=== PATIENT | female | born 1955 | race Caucasian/White ===

== ENCOUNTER 2017-07-18 16:10 | Inpatient (IN) | payer BC ==
[~2017-07-18] VITALS: Ht 154.9 cm; Wt 123.4 kg
[~2017-07-18 16:10] MED LIST: ADVAIR 100-501 EACH; ADVAIR 100-501 EACH INH; ALPRAZOLAM1 MG PO; ASPIR 8181 MG PO; ASPIRIN81 MG PO; ATENOLOL100 MG PO; BENICAR; BENICAR HCT 401 EAC1 PO; BUSPIRONE HCL5 MG PO; CIPRO XR 500 M500 MG PO; CLONIDINE HCL0.1 MG PO; CLONIDINE HCL0.2 MG PO; COLACE100 MG PO; CYMBALTA60 MG PO; CYTOMEL25 MCG PO; DEXILANT30 MG PO; DIFLUCAN100 MG PO; DOCUSATE SODIU250 MG PO; EFFIENT10 MG PO; HYDROCODON-ACE1 EAC9 PO; ISOSORBIDE MONO30 MG PO; LACTAID PO; LEVAQUIN500 MG PO; MELOXICAM7.5 MG PO; METFORMIN HCL500 MG PO; METRONIDAZOLE500 MG PO; NASACORT; NITROGLYCERIN0.4 MG SL; NORVASC5 MG PO; NUVIGIL150 MG PO; OXYBUTYNIN CHLOR5 MG PO; PARAFON FORTE500 MG PO; RYBIX ODT50 MG PO; TIZANIDINE HCL4 MG PO; TRAZODONE HCL100 MG PO; TUM; TUMS PO; XANAX XR1 MG PO; XANAX0.5 MG PO; XOPENEX HFA15 GM; ZEGERID 40 MG1 EACH PO; ZEGRID PO; ZERTEC; ZOFRAN ODT4 MG; ZYRTEC PO; [UNRECOGNIZED DRUG - OTHER] PO
--- OUTSIDE RECORDS SUMMARY | 2017-07-18 16:13 | XMS REPORT | Continuity of Care Document ---
Author Author [facility] Organization [facility] Address [address] [place] [address] Phone Unavailable Care Team Providers Care Founder And Ceo Name Role Phone KYLEE ACOSTA MD PCP Insurance Providers Guarantor Tracy Preciado Address [address] [place] [address] Email [email or web address] [employer] Policy Number [id number] Subscriber's Name Cresencio Preciado Relationship 01 Group Number [id number] Group Name [employer] Effective Date 16 Advance Directives Directive Response Recorded Date/Time Does the patient have an advance directive? No 07/09/17 5:07pm If yes, is advance directive on file with [facility]? No 07/09/17 5:07pm If not on file with [facility] will patient provide a copy? No 07/09/17 5:07pm Do you have a Directive to Physician? No 07/09/17 2:08pm Do you have a Medical Power of Assistant [employer]inter Floor [employer]ing? No 07/09/17 2:08pm Do you have an out of hospital Do Not Resuscitate Order? No 07/09/17 2:08pm Do you have any special needs we should be aware of? No 07/09/17 2:08pm Do you have a support person here with you today? Yes 07/09/17 2:08pm Did patient receive Notice of Privacy Practices? Yes 07/09/17 2:08pm Did patient receive patient rights and responsibilities? Yes 07/09/17 2:08pm Problems Medical Problem Onset Date Status CHF (congestive heart failure) Unknown CVA (cerebrovascular accident) Unknown Chest pain Unknown Gallstones 05/05/2015 Acute Renal colic on right side 08/25/2014 Acute Medications Current Home Medications Medication Dose Units Route Directions Days Qty Instructions Start Date Alprazolam 1 Mg Tablet 1 Mg Oral Every 8 Hours as needed for Anxiety Amlodipine Besylate (Norvasc) 5 Mg Tab 10 Mg Oral Daily Aspirin 81 Mg Tab.chew 81 Mg Oral Daily Atenolol 100 Mg Tablet 100 Mg Oral Daily Buspirone Hcl 5 Mg Tablet 5 Mg Oral Twice A Day 60 Tab Clonidine Hcl 0.1 Mg Tablet 1 Tab Oral Daily 60 Tab Dexlansoprazole (Dexilant) 30 Mg Cap.mp 60 Mg Oral Daily THERAPEUTIC INTERCHANGED WITH PROTONIX PER [facility] Docusate Sodium 250 Mg Capsule 250 Mg Oral Daily Duloxetine Hcl (Cymbalta) 60 Mg Capsule.dr 60 Mg Oral Daily Hydrocodone Bit/Acetaminophen (Hydrocodon-Acetaminophn 10-325) 1 Each Tablet 10-325 Oral Every 8 Hours PRN Pain Isosorbide Mononitrate (Isosorbide Mononitrate Er) 30 Mg Tab.er.24h 30 Mg Oral Daily 30 Tab Liothyronine Sodium (Cytomel) 25 Mcg Tablet 25 Mcg Oral Daily Nitroglycerin 0.4 Mg Tab.subl 0.4 Mg Sublingual Every 5 Minutes as needed for Chest Pain Oxybutynin Chloride 5 Mg Tablet 5 Mg Oral Daily 30 Tab Prasugrel Hcl (Effient) 10 Mg Tablet 10 Mg Oral Daily 30 Tab Prasugrel Hcl (Effient) 10 Mg Tablet 10 Mg Oral Daily 30 Tab Tizanidine Hcl 4 Mg Tablet 4 Mg Oral Three Times A Day Trazodone Hcl 100 Mg Tablet 600 Mg Oral Bedtime Past Home Medications Medication Directions Ordered Status Alprazolam (Xanax) 0.5 Mg Tablet, 1 Mg Oral Three Times A Day Discontinued Alprazolam (Xanax Xr) 1 Mg Tab.er.24h, 3 Mg Oral As Needed Discontinued Armodafinil (Nuvigil) 150 Mg Tablet, 150 Mg Oral Daily Discontinued Armodafinil (Nuvigil) 150 Mg Tablet, 150 Mg Oral Daily Discontinued Aspirin (Aspir 81) 81 Mg Tablet.dr, 81 Mg Oral Daily Discontinued Benicar , Discontinued Chlorzoxazone (Parafon Forte Dsc) 500 Mg Tablet, 500 Mg Oral Daily Discontinued Ciprofloxacin/Ciprofloxa Hcl (Cipro Xr 500 Mg Tablet) 500 Mg Tbmp.24hr, Mg Oral Daily Discontinued Clonidine Hcl 0.2 Mg Tablet, 0.2 Mg Oral As Needed Discontinued Docusate Sodium (Colace) 100 Mg Cap, 100 Mg Oral Daily Discontinued Flucananzole , 100 Mg Oral Daily Discontinued Fluconazole (Diflucan) 100 Mg Tablet, 100 Mg Oral Daily Discontinued Fluticasone/Salmeterol (Advair 100-50 Diskus) 1 Each Disk.w.dev, 1 Inhalation As Needed Discontinued Fluticasone/Salmeterol (Advair 100-50 Diskus) 1 Each Disk.w.dev, 1 Inh Route Twice A Day Discontinued Lactaid , Oral As Needed Discontinued Levalbuterol Tartrate (Xopenex Hfa) 15 Gm Hfa.aer.ad, Discontinued Levofloxacin (Levaquin) 500 Mg Tablet, 500 Mg Oral Daily Discontinued Meloxicam 7.5 Mg Tablet, 7.5 Mg Oral Twice A Day Discontinued Metformin Hcl 500 Mg Tablet, 1000 Mg Oral Twice A Day Discontinued Metronidazole 500 Mg Tablet, 500 Mg Oral Three Times A Day 05/11/15 Discontinued Nasacort , Daily Discontinued Olmesartan/Hydrochlorothiazide (Benicar Hct 40-25 Mg Tablet) 1 Each Tablet, Oral Daily Discontinued Omeprazole/Sodium Bicarbonate (Zegerid 40 Mg Capsule) 1 Each Capsule, 40 Mg Oral Twice A Day Discontinued Omeprazole/Sodium Bicarbonate (Zegerid 40 Mg Capsule) 1 Each Capsule, 40 Mg Oral Discontinued Ondansetron (Zofran Odt) 4 Mg Tab.rapdis, 4 Mg Every 6 Hours Discontinued Tramadol Hcl (Rybix Odt) 50 Mg Tab.rapdis, 50 Mg Oral As Needed Discontinued Ramila , Discontinued Tums , Oral As Needed Discontinued Zertec , Discontinued Zyrtec , Oral Daily Discontinued Social History Social History Problem Response Recorded Date/Time Onset Date Status Hx Psychiatric Problems Yes 07/09/2017 5:07pm Not Applicable Not Applicable Hx Eating Disorder No 07/09/2017 5:07pm Not Applicable Not Applicable Hx Substance Use Disorder No 07/09/2017 5:07pm Not Applicable Not Applicable Hx Depression Yes 07/09/2017 5:07pm Not Applicable Not Applicable Hx Alcohol Use No 07/09/2017 5:07pm Not Applicable Not Applicable Hx Substance Use Treatment No 07/09/2017 5:07pm Not Applicable Not Applicable Hx Physical Abuse No 07/09/2017 5:07pm Not Applicable Not Applicable Smoking Status Start Date Stop Date Never Smoker Hospital Discharge Instructions No hospital discharge instruction information available. Plan of Care Discharge Date 07/18/17 2:58pm Disposition HOME, SELF-CARE Instructions/Education Provided Congestive Heart Failure Prescriptions See Medication Section Additional Instructions/Education Diet as tolerated Follow up with your PCP Follow up with Pulmonary Return to ER is any shortness of breath, increased or decrease in heart rate Functional Status Query Response Date Recorded Assistive Devices None July 09, 2017 5:14pm Ambulation Ability Independent July 09, 2017 5:14pm Toileting Ability Minimum Assistance July 18, 2017 10:43am Allergies, Adverse Reactions, Alerts Allergen Type Severity Reaction Status Last Updated Penicillin Allergy Unknown Active 12/22/16 Sulfa (Sulfonamide Antibiotics) Allergy Unknown Active 12/22/16 Morphine Allergy Unknown Active 12/22/16 Codeine Allergy Unknown Active 12/22/16 Methocarbamol Allergy Unknown Active 12/22/16 Albuterol Allergy Unknown Active 12/22/16 Lactose Adverse Reaction Severe Active 12/22/16 Cephalexin Allergy Unknown Active 12/22/16 Tetracycline Allergy Unknown Active 12/22/16 Erythromycin base Allergy Unknown Active 12/22/16 potassium clavulanate Allergy Unknown Active 12/22/16 Imipenem Allergy Unknown RASH Active 12/22/16 Amoxicillin Allergy Unknown Active 12/22/16 Gabapentin Allergy Unknown Active 12/22/16 Cilastatin Allergy Unknown RASH Active 12/22/16 Meperidine Allergy Unknown Active 12/22/16 Atorvastatin Allergy Intermediate itching and muscle cramps Active TAPE Allergy Mild RASH Active 04/17/09 Immunizations No immunization information available. Vital Signs Acute Vital Signs Vital Response Date/Time Temperature (Fahrenheit) 97.2 degrees F (97.6 - 99.5) 07/18/2017 12:00pm Pulse Pulse Rate (adult) 66 bpm (60 - 90) 07/18/2017 12:00pm Respiratory Rate 18 bpm (12 - 24) 07/18/2017 12:00pm Blood Pressure 132/60 mm Hg 07/18/2017 12:00pm Height 5 ft 1 in 07/09/2017 1:20pm Weight 272.31 lb 07/12/2017 8:03am Body Mass Index 51.5 kg/m^2 07/12/2017 8:03am Results Laboratory Results Test Name Result Units Flags Reference Collection Date/Time Result Date/ Time Comments Prothrombin Time 12.7 seconds 11.9-14.5 12/22/2016 3:00pm 12/22/2016 3: 23pm Prothromb Time International Ratio 0.91 12/22/2016 3:00pm 2016 3:23pm Oral Anticoagulant Therapy INR Values: 1. Low Intensity Therapy 1.5 - 2.0 2. Moderate Intensity Therapy 2.0 - 3.0 3. High Intensity Therapy(1) 2.5 - 3.5 4. High Intensity Therapy(2) 3.0 - 4.0 5. Panic Value INR > 5.0 Activated Partial Thromboplast Time 45.2 seconds H 23.8-35.5 12/22/2016 3 :00pm 12/22/2016 3:23pm Urine Color YELLOW YELLOW 12/22/2016 2:05pm 12/22/2016 3:01pm Urine Clarity HAZY CLEAR 12/22/2016 2:05pm 12/22/2016 3:01pm Urine Specific [place] 1.015 1.010-1.025 12/22/2016 2:05pm 2016 3:01pm Urine pH 5 5 - 7 12/22/2016 2:05pm 12/22/2016 3:01pm Urine Leukocyte Esterase TRACE H NEGATIVE 12/22/2016 2:05pm 2016 3:01pm Urine Nitrite NEGATIVE NEGATIVE 12/22/2016 2:05pm 12/22/2016 3:01pm Urine Protein 3+ H NEGATIVE 12/22/2016 2:05pm 12/22/2016 3:01pm Urine Glucose (UA) NEGATIVE NEGATIVE 12/22/2016 2:05pm 12/22/2016 3: 01pm Urine Ketones NEGATIVE NEGATIVE 12/22/2016 2:05pm 12/22/2016 3:01pm Urine Urobilinogen 0.2 mg/dL 0.2 - 1 12/22/2016 2:05pm 12/22/2016 3: 01pm Urine Bilirubin NEGATIVE NEGATIVE 12/22/2016 2:05pm 12/22/2016 3: 01pm Urine Blood TRACE H NEGATIVE 12/22/2016 2:05pm 12/22/2016 3:01pm Urine WBC 6-10 /HPF H 0-5 12/22/2016 2:05pm 12/22/2016 3:21pm Urine RBC 6-10 /HPF H 0-5 12/22/2016 2:05pm 12/22/2016 3:21pm Urine Bacteria MODERATE /HPF H NONE 12/22/2016 2:05pm 12/22/2016 3:21pm Urine Epithelial Cells MANY /LPF NONE 12/22/2016 2:05pm 12/22/2016 3: 21pm Urine Transitional Epithelial Cells FEW H NONE 12/22/2016 2:05pm 12/22 3:21pm Urine Renal Epithelial Cells FEW H NONE 12/22/2016 2:05pm 12/22/2016 3 :21pm Urine Hyaline Casts 0-1 0-1 12/22/2016 2:05pm 12/22/2016 3:21pm Bedside Glucose 82 mg/dL 70-120 12/23/2016 9:14pm 12/23/2016 9:32pm Meter ID: [id number] White Blood Count 15.90 x10e3/uL H 4.8-10.8 07/16/2017 6:42am 2017 7:00am Red Blood Count 4.06 x10e6/uL 3.6-5.1 07/16/2017 6:42am 07/16/2017 7: 00am Hemoglobin 10.9 g/dL L 12.0-16.0 07/16/2017 6:42am 07/16/2017 7:00am Hematocrit 32.8 % L 34.2-44.1 07/16/2017 6:42am 07/16/2017 7:00am Mean Corpuscular Volume 80.8 fL L 81-99 07/16/2017 6:42am 07/16/2017 7: 00am Mean Corpuscular Hemoglobin 26.8 pg L 28-32 07/16/2017 6:42am 2017 7:00am Mean Corpuscular Hemoglobin Concent 33.2 g/dL 31-35 07/16/2017 6:42am 07/16/2017 7:00am Red Cell Distribution Width 14.2 % 11.7-14.4 07/16/2017 6:42am 2017 7:00am Platelet Count 574 x10e3/uL H 140-360 07/16/2017 6:42am 07/16/2017 7: 00am Neutrophils (%) (Auto) 88.6 % H 38.7-80.0 07/16/2017 6:42am 07/16/2017 7 :00am Lymphocytes (%) (Auto) 8.2 % L 18.0-39.1 07/16/2017 6:42am 07/16/2017 7: 00am Monocytes (%) (Auto) 2.5 % L 4.4-11.3 07/16/2017 6:42am 07/16/2017 7: 00am Eosinophils (%) (Auto) 0.0 % 0.0-6.0 07/16/2017 6:42am 07/16/2017 7: 00am Basophils (%) (Auto) 0.1 % 0.0-1.0 07/16/2017 6:42am 07/16/2017 7:00am IM GRANULOCYTES % 0.6 % 0.0-1.0 07/16/2017 6:42am 07/16/2017 7:00am Neutrophils # (Auto) 14.1 H 2.1-6.9 07/16/2017 6:42am 07/16/2017 7: 00am Lymphocytes # (Auto) 1.3 1.0-3.2 07/16/2017 6:42am 07/16/2017 7:00am Monocytes # (Auto) 0.4 0.2-0.8 07/16/2017 6:42am 07/16/2017 7:00am Eosinophils # (Auto) 0.0 0.0-0.4 07/16/2017 6:42am 07/16/2017 7:00am Basophils # (Auto) 0.0 0.0-0.1 07/16/2017 6:42am 07/16/2017 7:00am Absolute Immature Granulocyte (auto 0.09 x10e3/uL 0-0.1 07/16/2017 6: 42am 07/16/2017 7:00am Sodium Level 136 mmol/L 136-145 07/16/2017 6:42am 07/16/2017 7:27am Potassium Level 3.6 mmol/L 3.5-5.1 07/16/2017 6:42am 07/16/2017 7:27am Chloride Level 99 mmol/L 98-107 07/16/2017 6:42am 07/16/2017 7:27am Carbon Dioxide Level 25 mmol/L 22-29 07/16/2017 6:42am 07/16/2017 7: 27am Anion Gap 15.6 mmol/L 8-16 07/16/2017 6:42am 07/16/2017 7:27am Blood Urea Nitrogen 60 mg/dL H 7-07/16/2017 6:42am 07/16/2017 7:27am Creatinine 2.72 mg/dL H 0.57-1.11 07/16/2017 6:42am 07/16/2017 7:27am BUN/Creatinine Ratio 22 6-07/16/2017 6:42am 07/16/2017 7:27am Estimat Glomerular Filtration Rate 18 ML/MIN L 60- 07/16/2017 6:42am 7:27am Ranges were taken from the National Kidney Disease Education Program and the National Kid[employer] Foundation literature. Reference ranges: 60 or greater: Normal 16-59 (for 3 consecutive months): Chronic kidney disease 15 or less: Kidney failure Glucose Level 219 mg/dL H 74-118 07/16/2017 6:42am 07/16/2017 7:27am Calcium Level 9.3 mg/dL 8.4-10.2 07/16/2017 6:42am 07/16/2017 7:27am Magnesium Level 1.6 MG/DL 1.3-2.1 07/16/2017 6:42am 07/16/2017 7:10am Total Bilirubin 0.4 mg/dL 0.2-1.2 07/16/2017 6:42am 07/16/2017 7:27am Aspartate Amino Transf (AST/SGOT) 10 IU/L 5-34 07/16/2017 6:42am 2017 7:27am Alanine Aminotransferase (ALT/SGPT) 14 IU/L 0-55 07/16/2017 6:42am 7:27am Total Protein 6.6 g/dL 6.5-8.1 07/16/2017 6:42am 07/16/2017 7:27am Albumin 2.8 g/dL L 3.5-5.0 07/16/2017 6:42am 07/16/2017 7:27am Globulin 3.8 g/dL H 2.3-3.5 07/16/2017 6:42am 07/16/2017 7:27am Albumin/Globulin Ratio 0.7 L 0.8-2.0 07/16/2017 6:42am 07/16/2017 7: 27am Alkaline Phosphatase 71 IU/L 40-150 07/16/2017 6:42am 07/16/2017 7: 27am B-Type Natriuretic Peptide 91.0 pg/mL 0-100 07/15/2017 9:57am 2017 10:31am Creatine Kinase 29 IU/L 29-168 07/10/2017 6:32am 07/10/2017 7:31am Creatine Kinase MB 0.30 ng/mL 0-5.0 07/10/2017 6:32am 07/10/2017 8: 00am Troponin I 0.011 ng/mL 0-0.300 07/10/2017 6:32am 07/10/2017 8:00am Microbiology Results Procedure Source Organism/Result Collection Date/Time Result Date/Time Result Status Blood Culture Blood NO GROWTH AFTER 5 DAYS, FINAL REPORT 07/09/2017 4:10pm 07/14/2017 4:57pm Final Procedures Procedure Status Date Provider(s) Computed tomography of brain without radiopaque contrast Active 12/22/16 CAYETANO ORDONEZ MD Magnetic resonance imaging of brain without contrast Active 12/23/16 KYLEE ACOSTA MD Encounters Encounter Location Arrival/Admit Date Discharge/Depart Date Attending Provider Discharged Inpatient [facility] 07/09/17 4:40pm 07/18/17 2:58pm KYLEE ACOSTA MD Discharged Inpatient [facility] 12/22/16 5:14pm 12/24/16 4:25pm KYLEE ACOSTA MD
[2017-07-18] MEDS ORDERED: DIATRIZOATE MEGL/DIATRIZOA SOD 30 ML BTL PO ONE (16:29)
--- NOTE | 2017-07-18 17:20 | Diagnostic Imaging Report ---
EXAMINATION: Chest, CHEST SINGLE (PORTABLE) INDICATION: Chest pain COMPARISON: Portable chest 07/15/2017 FINDINGS: LINES: None. Heart: Normal cardiac silhouette. Vascular: The pulmonary vasculature is within normal limits. Atherosclerotic calcifications of the aortic arch. Mediastinum: No mediastinal, hilar, or axillary mass or lymphadenopathy. Lungs: No parenchymal mass. No focal consolidation. Pleura: No pleural effusion. No pneumothorax. Bones: No acute osseous abnormality. Degenerative changes of the thoracic spine. Soft tissues: Normal. Impression: No acute radiographic abnormality. Signed by: Dr. Doyle Taylor M.D. on 07/18/2017 5:16 PM
[2017-07-18] MEDS ORDERED: ONDANSETRON HCL 4 MG ORAL DISINTEGRATING TAB PO ONE (17:30)
--- NOTE | 2017-07-18 18:43 | Diagnostic Imaging Report ---
EXAM: CT Abdomen and Pelvis WITHOUT contrast INDICATION: Abdominal pain COMPARISON: None. TECHNIQUE: Abdomen and pelvis were scanned utilizing a multidetector helical scanner from the lung base to the pubic symphysis. Coronal and sagittal reformations were obtained. The lack of intravenous contrast limits the evaluation of the solid organs, vasculature, and possible lymphadenopathy. Protocol: General survey without contrast IV CONTRAST: No intravenous contrast was administered as per physician request. ORAL CONTRAST: None. COMPLICATIONS: None. RADIATION DOSE: Total Exam DLP: 844.7 mGy*cm. CTDIvol has been reviewed. It is below the limits set by the Radiation Protocol Committee (RPC). FINDINGS: LINES: None. Lower thorax: No parenchymal abnormality. No pneumothorax. No pleural effusion. Calcified granuloma in the left lower lobe. Liver: No focal mass. No hepatomegaly. Normal parenchyma. Gallbladder: Cholecystectomy. Biliary tree: No intrahepatic duct dilation. No extrahepatic duct dilation. Spleen: No splenomegaly. No focal mass. Pancreas: No focal mass. Normal pancreatic duct. No peripancreatic inflammatory changes. Kidneys: Right nephrectomy. No obstructing calculi. No hydronephrosis. No cysts. No perinephric soft tissue inflammatory changes. 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 Adrenal glands: No adrenal nodules.. Bladder: Normal urinary bladder. Pelvic organs: Hysterectomy. Normal ovaries. GI: No bowel wall thickening. No air-fluid levels. The stomach and small bowel are normal. The colon is normal. No appendix is visualized. A moderate amount of retained feces limits intraluminal evaluation of the colon. Peritoneum/retroperitoneum: No pneumoperitoneum. No ascites. No drainable fluid collection. Lymph nodes: No lymphadenopathy. . Vessels: No focal abnormality. Atherosclerotic calcifications. Limited evaluation. Bones: No focal abnormality. Degenerative changes of the lumbar spine. Soft tissues: No focal abnormality. IMPRESSION: No acute abnormality of the abdomen and pelvis. Signed by: Dr. Doyle Taylor M.D. on 07/18/2017 6:39 PM
[2017-07-18 19:07] LABS: BASOPHILS # (AUTO) 0.1 (0.0-0.1); BASOPHILS % 0.3 % (0.0-1.0); HEMATOCRIT 40.8 % (34.2-44.1); HEMOGLOBIN 13.7 g/dL (12.0-16.0); LYMPHOCYTES % 8.1 % (18.0-39.1); MEAN CORPUSCULAR HEMOGLOBIN 27.1 pg (28-32); MEAN CORPUSCULAR HGB CONC 33.6 g/dL (31-35); MEAN CORPUSCULAR VOLUME 80.6 fL (81-99); MONOCYTES # (AUTO) 1.8 (0.2-0.8); MONOCYTES % 7.4 % (4.4-11.3); NEUTROPHILS # (AUTO) 20.1 (2.1-6.9); NEUTROPHILS % 82.6 % (38.7-80.0); PLATELET COUNT 646 x10e3/uL (140-360); RED BLOOD COUNT 5.06 x10e6/uL (3.6-5.1); RED CELL DISTRIBUTION WIDTH 14.5 % (11.7-14.4)
[2017-07-18 19:13] LABS: INR 1.06; PARTIAL THROMBOPLASTIN TIME 21.6 seconds (23.8-35.5)
[2017-07-18 19:20] LABS: ALBUMIN 3.6 g/dL (3.5-5.0); ALBUMIN/GLOBULIN RATIO 0.8 (0.8-2.0); ANION GAP 24.7 mmol/L (8-16); CALCIUM 10.5 mg/dL (8.4-10.2); CREATININE, SERUM 3.34 mg/dL (0.57-1.11); POTASSIUM 3.7 mmol/L (3.5-5.1)
[2017-07-18 19:27] LABS: CREATINE KINASE MB 0.7 ng/mL (0-5.0)
[2017-07-18 20:04] LABS: BLOOD UREA NITROGEN 24.9 mg/dL (7-26)
[2017-07-19] MEDS ORDERED: HYDROMORPHONE 1MG/1ML INJ IV STA (00:42)
[2017-07-19] MEDS ORDERED: NITROGLYCERIN 0.4 MG SUBL SL PRN (00:45)
[2017-07-19] MEDS ORDERED: DILTIAZEM HCL 5 MG/ML 5 ML VIAL IV STA (02:25)
[2017-07-19 02:53] LABS: CREATINE KINASE MB 0.5 ng/mL (0-5.0)
[2017-07-19] MEDS ORDERED: ATENOLOL 50 MG TAB ONE (03:32)
[2017-07-19] MEDS: ATENOLOL 100 MG TAB PO SCH ×2 (04:00→10:10)
[2017-07-19 05:01] LABS: LYMPHOCYTES % (MANUAL) 9 % (19-48); MONOCYTES % (MANUAL) 7 % (3.4-9.0); NEUTROPHILS % (MANUAL) 84 % (40-74)
[2017-07-19 05:02] LABS: PLATELET ESTIMATE MARKEDLY INCREASED
[2017-07-19 05:03] LABS: PLATELET MORPHOLOGY COMMENT FEW LARGE; RBC MORPHOLOGY COMMENT NORMAL
[2017-07-19] MEDS ORDERED: LEVOFLOXACIN 250MG/D5W 50ML 50 ML IV SCH (09:00)
[2017-07-19] MEDS ORDERED: PRASUGREL 10 MG TAB PO SCH (09:00)
[2017-07-19 09:04] LABS: BASOPHILS % 0.2 % (0.0-1.0); HEMATOCRIT 37.5 % (34.2-44.1); HEMOGLOBIN 12.5 g/dL (12.0-16.0); LYMPHOCYTES % 11.8 % (18.0-39.1); MEAN CORPUSCULAR HEMOGLOBIN 26.9 pg (28-32); MEAN CORPUSCULAR HGB CONC 33.3 g/dL (31-35); MEAN CORPUSCULAR VOLUME 80.8 fL (81-99); MONOCYTES # (AUTO) 2.3 (0.2-0.8); MONOCYTES % 9.2 % (4.4-11.3); NEUTROPHILS # (AUTO) 19.7 (2.1-6.9); NEUTROPHILS % 78.2 % (38.7-80.0); PLATELET COUNT 592 x10e3/uL (140-360); RED BLOOD COUNT 4.64 x10e6/uL (3.6-5.1); RED CELL DISTRIBUTION WIDTH 14.5 % (11.7-14.4)
[2017-07-19 09:19] LABS: CALCIUM 9.6 mg/dL (8.4-10.2); CREATININE, SERUM 3.01 mg/dL (0.57-1.11); MAGNESIUM 1.9 MG/DL (1.3-2.1)
[2017-07-19 09:41] LABS: FREE THYROXINE INDEX 2.776 (1.4-3.8); THYROID STIMULATING HORMONE 0.158 uIU/mL (0.350-4.940)
[2017-07-19] MEDS: PRASUGREL 10 MG TAB PO SCH (09:45)
[2017-07-19] MEDS: OXYBUTYNIN CHLORIDE 5 MG TAB PO SCH (09:45)
[2017-07-19] MEDS: PANTOPRAZOLE SOD 40 MG TABEC PO SCH (09:45)
[2017-07-19] MEDS: AMLODIPINE BESYLATE 5 MG TAB PO SCH (09:45)
[2017-07-19] MEDS: DULOXETINE HCL 30 MG DELAYED RELEASE PO SCH (09:45)
[2017-07-19] MEDS: TIZANIDINE HCL 4 MG TAB PO SCH ×3 (09:45→21:00)
[2017-07-19] MEDS: ASPIRIN 81 MG CHEW TAB PO SCH (09:45)
[2017-07-19] MEDS: CLONIDINE HCL 0.1 MG TAB PO SCH (09:45)
[2017-07-19] MEDS: HYDROCODONE/APAP 10MG-325MG TAB PO PRN ×2 (09:45→17:45)
[2017-07-19] MEDS: ISOSORBIDE MONONITRATE 30 MG TAB CR PO SCH (09:45)
[2017-07-19 09:47] LABS: ALBUMIN/GLOBULIN RATIO 0.9 (0.8-2.0); ANION GAP 17.3 mmol/L (8-16); CALCIUM 9.4 mg/dL (8.4-10.2); CREATININE, SERUM 2.93 mg/dL (0.57-1.11); POTASSIUM 3.3 mmol/L (3.5-5.1)
[2017-07-19] MEDS: ALPRAZOLAM 1 MG TAB PO PRN (09:50)
[2017-07-19 09:52] LABS: CREATINE KINASE MB 0.8 ng/mL (0-5.0)
[2017-07-19] MEDS: DOCUSATE SODIUM LIQD 100 MG/10 ML UDC PO SCH (10:11)
[2017-07-19] MEDS: BUSPIRONE HCL 5 MG TAB PO SCH ×2 (10:11→17:05)
[2017-07-19] MEDS: LIOTHYRONINE SODIUM 5 MCG TAB PO SCH (10:11)
[2017-07-19 10:42] LABS: LYMPHOCYTES % (MANUAL) 14 % (19-48); MONOCYTES % (MANUAL) 8 % (3.4-9.0); NEUTROPHILS % (MANUAL) 78 % (40-74)
[2017-07-19 10:43] LABS: PLATELET ESTIMATE MARKEDLY INCREASED; PLATELET MORPHOLOGY COMMENT NORMAL; RBC MORPHOLOGY COMMENT NORMAL
--- NOTE | 2017-07-19 13:22 | History and Physical ---
A 61-year-old female who was discharged yesterday after treatment of CHF. She comes back with near syncope and fall. HISTORY OF PRESENTING ILLNESS: Ms. Tracy Preciado is a 61-year-old female who was discharged yesterday. She was in her usual state of health until she arrived home and apparently after getting out of the car the patient slumped over and was helped by family, did not fall, but came back and admitted. The patient on admission had elevated white count and leukocytosis. The patient also had extreme weakness and was admitted for the same. PAST MEDICAL HISTORY: History of fibromyalgia, obesity, history of using CPAP, history of hypothyroidism, history of hypertension, history of depression and history of CHF, and history of incontinence and history of heart disease. The patient had been treated in the recent past for CHF. Yesterday, the patient was feeling fine and had no complaints and was discharged as per cardiology. The patient also has bilateral knee arthritis. MEDICATIONS: Atenolol 100 mg, trazodone 600 mg, 25 mcg, duloxetine 60 mg, Docusate 250 mg, tizanidine 4 mg, Effient 10 mg, oxybutynin 5 mg, nitroglycerin 0.4 as needed, isosorbide 30 mg daily, pantoprazole 60 mg, clonidine 0.1, Buspar 5 mg, aspirin 81, amlodipine 10 mg and alprazolam 1 mg q.8 h. p.r.n. anxiety. PAST SURGICAL HISTORY: History of right nephrectomy, history of hysterectomy, appendectomy, tonsillectomy, adenoidectomy, splenectomy, and thyroid removed. FAMILY HISTORY: Hypertension and diabetes in the family. REVIEW OF SYSTEMS: Negative for chest pain. Positive for some shortness of breath. She has no nausea, vomiting, diarrhea, no constipation, no rectal bleeding, no hematochezia and no hematemesis. Positive for myalgia and also positive for generalized weakness and pain. PHYSICAL EXAMINATION GENERAL: The patient is alert and oriented x3. She is on a CPAP right now. VITAL SIGNS: Blood pressure on arrival was 140/75, temperature 98.2, pulse 63, respirations 18 and pulse oximetry was 96% on room air. HEENT: Normocephalic, atraumatic. Pupils react to light and accommodation. CVS: S1 and S2 irregularly irregular with rapid ventricular response. ABDOMEN: Tender in the left lower quadrant. EXTREMITIES: Positive for trace edema. LUNGS: Decreased breath sounds. LABORATORY DATA: Initial white count is 24,000. Platelet count was 646,000. Neutrophils of 82 with left shift. Chemistry: Sodium 136, BUN 24.9 and creatinine 3.4. Glucose 262. BNP was 45.6. ASSESSMENT 1. Leukocytosis. 2. Generalized weakness. 3. Chronic kidney disease stage 4. 4. Morbid obesity. 5. Multiple comorbidities includes coronary artery disease, congestive heart failure, chronic kidney disease. PLAN: Will continue to monitor the patient. IV fluids. Will go ahead and also give her Levaquin 250 mg daily and we will keep the patient inpatient and cardiology consult with Dr. Hicks and also a renal consult with Dr. Arora will be done. Further recommendations depending on clinical course. Will continue to monitor the patient and also put her on amiodarone drip if needed. Job#: [id number]
[2017-07-19] MEDS ORDERED: POTASSIUM CHLORIDE 20 MEQ TAB CR PO ONE (15:30)
[2017-07-19 15:57] VITALS: BP 126/83
[2017-07-19 16:00] VITALS: BP 126/83
--- NOTE | 2017-07-19 16:57 | Consultation ---
DATE OF CONSULTATION: July 19, 2017 CARDIOLOGY CONSULTATION REQUESTING PHYSICIAN: Enrique Peters MD REASON FOR CONSULTATION: Atrial fibrillation. HISTORY OF PRESENT ILLNESS: This is a 61-year-old woman with a history of coronary artery disease, status post LAD PCI, diabetes mellitus, hypertension, chronic kidney disease, and chronic diastolic heart failure, who presents with complaint of weakness. She had just been discharged from [facility] yesterday after admission for [id number] diastolic heart failure. Upon getting out of the car and walking home, she began to feel extremely weak. She states she lost consciousness. Denied any vision changes, chest pain, shortness of breath or palpitations prior to onset. She denies any edema, orthopnea, fever, chills, diarrhea or cough. She reports constipation instead. Given her syncope, she was brought back to the ER for further evaluation. Labs demonstrated leukocytosis with WBC of 24.28 and [id number] kidney disease with creatinine of 3.01. Chest x-ray revealed no acute radiographic abnormality. CT of the abdomen and pelvis demonstrated no acute abnormality of the abdomen and pelvis. While she was in the ER overnight, she was noted to develop atrial fibrillation with rapid ventricular response for which we are consulted. REVIEW OF SYSTEMS: Negative, except as per HPI. PAST MEDICAL HISTORY 1. Chronic diastolic heart failure. 2. Coronary artery disease, status post LAD PCI, with moderate residual coronary artery disease on most recent cardiac catheterization in 2017. 3. Hypertension. 4. Hypertensive heart disease. 5. Chronic kidney disease. 6. Diabetes mellitus. 7. Obstructive sleep apnea. 8. Obesity. PAST SURGICAL HISTORY 1. Splenectomy. 2. Right nephrectomy. 3. Hysterectomy. 4. Appendectomy. 5. Tonsillectomy. 6. . 7. Thyroidectomy. ALLERGIES: PLEASE SEE EMR. MEDICATIONS: Please see medication list. SOCIAL HISTORY: No tobacco or alcohol use. She lives with her . FAMILY HISTORY: Noncontributory to current illness. PHYSICAL EXAMINATION VITAL SIGNS: Temperature 98.2 degrees, pulse 104, respiratory rate 20, blood pressure 124/81, oxygen saturation 96% on nasal cannula. GENERAL: Obese woman, well-developed, well-nourished, in no acute distress. HEENT: Normocephalic and atraumatic. Pupils are equal. No scleral icterus. NECK: Supple. No thyromegaly or cervical lymphadenopathy. No carotid bruit. LUNGS: Clear to auscultation bilaterally. No wheezes or crackles. CARDIOVASCULAR: Normal rate, regular rhythm. No murmur. Normal S1 and S2. ABDOMEN: Soft. Nontender. EXTREMITIES: No edema. NEURO: Nonfocal exam. LABS: WBC 25.16, hemoglobin 12.5, hematocrit 37.5, platelets 592. Sodium 139, potassium 3, chloride 102, CO2 24, BUN 84, creatinine 3.01, INR 1.06. EKG: Normal sinus rhythm, normal EKG. This morning, demonstrated AFib with RVR, ST and T wave abnormality, consider inferior ischemia or digitalis effect. BNP 45.6. IMPRESSION 1. Presyncope. 2. Atrial fibrillation with rapid ventricular response. 3. Acute kidney injury on chronic kidney disease. 4. Chronic diastolic heart failure. 5. Coronary artery disease, status post left anterior descending stent with moderate residual coronary artery disease on most recent cardiac catheterization in 2017. 6. Diabetes mellitus. 7. Hypertension. 8. Obstructive sleep apnea. 9. Obesity. RECOMMENDATIONS: Suspect the patient's syncope was the result of orthostatic hypotension and over-diuresis. Check orthostatic vitals. Agree with IV fluids. Monitor the patient on telemetry. We will change the patient's atenolol to metoprolol for better rate control. Given her elevated CHADS-VASc score, she will need anticoagulation for CVA prophylaxis. This was discussed with the patient. Possible therapeutic agents will depend on the patient's renal function. Nephrology consultation is pending. Thank you for this consult. We will continue to follow. Job#: [id number]
[2017-07-19] MEDS: METOPROLOL TARTRATE 50 MG TAB PO SCH (17:05)
[2017-07-19] MEDS: ONDANSETRON HCL 4 MG ORAL DISINTEGRATING TAB PO PRN (18:35)
--- NOTE | 2017-07-19 19:00 | Consultation ---
DATE OF CONSULTATION: July 19, 2017 REASON FOR CONSULTATION: Leukocytosis. Thank you so much for asking me to see this patient. 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 She is status post right nephrectomy from renal cancer, fibromyalgia, sleep apnea on CPAP, hypothyroidism, hypertension, depression, congestive heart failure, incontinence, heart disease. Patient was recently in the hospital for congestive heart failure with fluid overload. The patient was here for a week, she is telling me. She did well. She was discharged. She went home. She left the car and walked inside the house and collapsed. Then was called and she was brought back here. She was given IV fluids, given IV antibiotics. She is feeling better today, but he is generally weak all over. Patient has no complaints at present time except generally feeling weak. PAST MEDICAL HISTORY: Obesity, hypertension, coronary artery disease, fibromyalgia, sleep apnea, congestive heart failure, splenectomy and ITP at age 6. PAST SURGICAL HISTORY: Nephrectomy on the right for renal cancer, hysterectomy, appendectomy, tonsillectomy, splenectomy and C-sections. SOCIAL HISTORY: There is no smoking, drug abuse, alcohol abuse. FAMILY HISTORY: Hypertension. ALLERGIES: PENICILLIN AND SULFA DRUGS CAUSE SKIN RASH AND SWELLING, ACCORDING TO HER, SHE CANNOT TAKE IT, AND EVEN CEPHALOSPORIN, SHE SAID SHE COULD NOT TAKE THAT. SHE IS ALSO ALLERGIC TO MEPERIDINE AND ATORVASTATIN. REVIEW OF SYSTEMS: HEENT: Negative. PULMONARY: Negative. CARDIAC: Negative. GI: Negative. : Negative. SKIN: No rash. The patient, unfortunately, has no IV access. LABORATORY DATA: On admission white blood cell count 25.16, hemoglobin 12, hematocrit 37, platelets 592. Her blood cultures are still pending. Sodium 139, potassium 3.1, creatinine 3.01. She had a CT of the abdomen and pelvis. It showed no acute abnormality of the abdomen and pelvis. Chest x-ray showed no acute abnormalities. PHYSICAL EXAMINATION: GENERAL: She is currently alert and oriented. Obese. VITALS: Stable. Afebrile. HEENT: She is not icteric. NECK: Supple. CHEST: Clear. HEART: No murmur. ABDOMEN: Soft. IMPRESSION: 1. Leukocytosis in a patient who had a splenectomy. Patient is at risk for infection. Agree with Levaquin. Agree with blood cultures. Agree with IV fluid. Recheck to see how she is doing over the next couple of days. 2. Obesity. 3. Chronic kidney disease. 4. Congestive heart failure. 5. History of renal cancer, status post nephrectomy. 6. Will follow with you. Job#: [id number] GH
[2017-07-19 20:00] VITALS: BP 93/58
[2017-07-19] MEDS: TRAZODONE HCL 50 MG TAB PO SCH (22:41)
[2017-07-19] MEDS: SODIUM CHLORIDE 0.9% 1000ML 1,000 ML IV SCH (22:41)
[2017-07-19 23:07] VITALS: BP 93/58
[2017-07-20] VITALS (8 sets, daily range): BP systolic 112–152; BP diastolic 58–72
[2017-07-20 00:52] LABS: CREATINE KINASE MB 0.8 ng/mL (0-5.0)
[2017-07-20] MEDS: SODIUM CHLORIDE 0.9% 1000ML 1,000 ML IV SCH (04:10)
[2017-07-20] MEDS: HYDROCODONE/APAP 10MG-325MG TAB PO PRN ×2 (05:28→19:18)
[2017-07-20] MEDS: METOPROLOL TARTRATE 50 MG TAB PO SCH ×4 (06:12→17:40)
[2017-07-20] MEDS: ALPRAZOLAM 1 MG TAB PO PRN (06:13)
[2017-07-20 06:49] LABS: BASOPHILS % 0.1 % (0.0-1.0); EOSINOPHILS # (AUTO) 0.1 (0.0-0.4); EOSINOPHILS % 0.5 % (0.0-6.0); HEMATOCRIT 34.5 % (34.2-44.1); HEMOGLOBIN 11.5 g/dL (12.0-16.0); LYMPHOCYTES # (AUTO) 4.1 (1.0-3.2); LYMPHOCYTES % 17.7 % (18.0-39.1); MEAN CORPUSCULAR HEMOGLOBIN 27.4 pg (28-32); MEAN CORPUSCULAR HGB CONC 33.3 g/dL (31-35); MEAN CORPUSCULAR VOLUME 82.1 fL (81-99); MONOCYTES # (AUTO) 1.9 (0.2-0.8); MONOCYTES % 8.2 % (4.4-11.3); NEUTROPHILS # (AUTO) 16.8 (2.1-6.9); NEUTROPHILS % 72.8 % (38.7-80.0); PLATELET COUNT 513 x10e3/uL (140-360); RED CELL DISTRIBUTION WIDTH 14.6 % (11.7-14.4)
[2017-07-20 07:12] LABS: CALCIUM 8.7 mg/dL (8.4-10.2); CREATININE, SERUM 2.86 mg/dL (0.57-1.11)
[2017-07-20] MEDS: PANTOPRAZOLE SOD 40 MG TABEC PO SCH (09:20)
[2017-07-20] MEDS: ASPIRIN 81 MG CHEW TAB PO SCH (09:20)
[2017-07-20] MEDS: LEVOFLOXACIN 500MG/D5W 100ML 100 ML IV SCH (09:20)
[2017-07-20] MEDS: BUSPIRONE HCL 5 MG TAB PO SCH ×2 (09:20→16:08)
[2017-07-20] MEDS: DULOXETINE HCL 30 MG DELAYED RELEASE PO SCH (09:20)
[2017-07-20] MEDS: LIOTHYRONINE SODIUM 5 MCG TAB PO SCH (09:20)
[2017-07-20] MEDS: DOCUSATE SODIUM LIQD 100 MG/10 ML UDC PO SCH (09:20)
[2017-07-20] MEDS: PRASUGREL 10 MG TAB PO SCH (09:21)
[2017-07-20] MEDS: OXYBUTYNIN CHLORIDE 5 MG TAB PO SCH (09:21)
[2017-07-20] MEDS: ISOSORBIDE MONONITRATE 30 MG TAB CR PO SCH (09:21)
[2017-07-20] MEDS: TIZANIDINE HCL 4 MG TAB PO SCH ×3 (09:21→21:00)
[2017-07-20] MEDS: AMLODIPINE BESYLATE 5 MG TAB PO SCH (09:21)
[2017-07-20] MEDS: CLONIDINE HCL 0.1 MG TAB PO SCH (09:21)
[2017-07-20 11:01] LABS: LYMPHOCYTES % (MANUAL) 15 % (19-48); MONOCYTES % (MANUAL) 7 % (3.4-9.0); NEUTROPHILS % (MANUAL) 78 % (40-74)
[2017-07-20 11:02] LABS: ANISOCYTOSIS SLIGHT; PLATELET ESTIMATE SLIGHTLY INCREASED; PLATELET MORPHOLOGY COMMENT MANY LARGE; POIKILOCYTOSIS SLIGHT; RBC MORPHOLOGY COMMENT NORMAL
[2017-07-20] MEDS ORDERED: POTASSIUM CHLORIDE 10 MEQ TABCR PO ONE (13:00)
--- NOTE | 2017-07-20 13:59 | Diagnostic Imaging Report ---
PROCEDURE:US RETROPERITONEAL ( KIDNEY ). COMPARISON:Patients [facility], US, US RETROPERITONEAL ( KIDNEY )., 01/15/2016, 17:52. INDICATIONS:CKD TECHNIQUE:Ultrasound examination was performed of the kidneys and bladder. FINDINGS: Right Kidney: Status post nephrectomy. Left Kidney: Length: 11.2 cm Appearance: Mildly increased echogenicity. Collecting system: Mild hydronephrosis Stones: There is a shadowing echogenic focus in the upper pole of the left kidney, unchanged. Cyst/Mass: There is 1.9 x 1.6 x 1.7 cm simple cyst in the interpolar region, previously measuring 2.1 x 1.5 x 2.0 cm. There is a simple cyst in the lower pole measuring 1.7 x 1.2 x 1.2 cm and previously measuring 0.9 x0. 9 x 1.0 cm. CONCLUSION: 1. MILDLY INCREASED ECHOGENICITY OF THE LEFT RENAL CORTEX SUGGESTIVE OF MEDICAL RENAL DISEASE. NO HYDRONEPHROSIS . 2. STATUS POST RIGHT NEPHRECTOMY. NO ABNORMALITY IN THE RIGHT RENAL FOSSA. Janki YEPEZ M.D. DICTATED BY: Janki YEPEZ M.D. ON 07/20/2017 AT 14:01 ELECTRONICALLY APPROVED BY: Janki YEPEZ M.D. ON 07/20/2017 AT 14:01
--- NOTE | 2017-07-20 14:01 | Progress Note ---
CARDIOLOGY PROGRESS NOTE DATE: July 20, 2017 SUBJECTIVE: Patient denies chest pain or shortness of breath. She reports she was lightheaded when she attempted to sit up with physical therapy. OBJECTIVE VITAL SIGNS: Temperature 97.9 degrees, pulse 63, respiratory 20, blood pressure 117/58, oxygen saturation 95% on 2 liters nasal cannula. GENERAL: Morbidly obese woman in no acute distress. Awake and alert. LUNGS: Clear to auscultation bilaterally. No wheezes or crackles. CARDIOVASCULAR: Normal rate, regular rhythm. No murmur. S1, S2. ABDOMEN: Soft, nontender. EXTREMITIES: No edema. CARDIAC MEDICATIONS 1. Metoprolol tartrate 50 mg p.o. q.6 hours. 2. Prasugrel 10 mg p.o. daily. 3. Isosorbide mononitrate 30 mg p.o. daily. 4. Clonidine 0.1 mg p.o. daily. 5. Amlodipine 10 mg p.o. daily. 6. Liothyronine 25 mcg p.o. daily. 7. Aspirin 81 mg p.o. daily. LABS: WBC 23.04, hemoglobin 11.5, hematocrit 34.5, platelets 513. Sodium 137, potassium 3, chloride 103, CO2 22, BUN 76, creatinine 2.86. Troponin 0.065. TELEMETRY: Normal sinus rhythm. IMPRESSION 1. Presyncope. 2. Atrial fibrillation with rapid ventricular response. 3. Acute kidney injury on chronic kidney disease improving. 4. Chronic diastolic heart failure. 5. Coronary artery disease status post left anterior descending stent with moderate residual coronary artery disease on most recent cardiac catheterization in 2017. 6. Diabetes mellitus. 7. Hypertension. 8. Obstructive sleep apnea. 9. Obesity. RECOMMENDATIONS: Suspect the patient's syncope was result of orthostatic hypotension and overdiuresis. Agree with IV fluids. Creatinine is improving with fluid administration however patient remains symptomatic. We will continue monitoring volume status closely. Continue patient on telemetry to evaluate for arrhythmias. Given patient's elevated CHADS-VASc score, she will ultimately need anticoagulation for CVA prophylaxis. Once renal function has stabilized we will evaluate her options and discuss with the patient further. Continue current cardiac medications otherwise. Thank you for this consult. We will continue to follow. Job#: [id number] NELLI
[2017-07-20] MEDS: TRAZODONE HCL 50 MG TAB PO SCH (21:00)
[2017-07-21] VITALS (7 sets, daily range): BP systolic 106–142; BP diastolic 54–63
[2017-07-21] MEDS: METOPROLOL TARTRATE 50 MG TAB PO SCH ×2 (05:43)
[2017-07-21 06:42] LABS: BASOPHILS % 0.1 % (0.0-1.0); EOSINOPHILS # (AUTO) 0.4 (0.0-0.4); EOSINOPHILS % 2.1 % (0.0-6.0); HEMATOCRIT 33.1 % (34.2-44.1); HEMOGLOBIN 10.8 g/dL (12.0-16.0); LYMPHOCYTES # (AUTO) 4.3 (1.0-3.2); LYMPHOCYTES % 20.6 % (18.0-39.1); MEAN CORPUSCULAR HEMOGLOBIN 26.9 pg (28-32); MEAN CORPUSCULAR HGB CONC 32.6 g/dL (31-35); MEAN CORPUSCULAR VOLUME 82.5 fL (81-99); MONOCYTES # (AUTO) 1.7 (0.2-0.8); MONOCYTES % 8.1 % (4.4-11.3); NEUTROPHILS # (AUTO) 14.1 (2.1-6.9); NEUTROPHILS % 68.1 % (38.7-80.0); PLATELET COUNT 463 x10e3/uL (140-360); RED BLOOD COUNT 4.01 x10e6/uL (3.6-5.1); RED CELL DISTRIBUTION WIDTH 14.6 % (11.7-14.4)
[2017-07-21 07:16] LABS: ALBUMIN 2.4 g/dL (3.5-5.0); ALBUMIN/GLOBULIN RATIO 0.7 (0.8-2.0); ANION GAP 14.2 mmol/L (8-16); CALCIUM 8.8 mg/dL (8.4-10.2); CREATININE, SERUM 2.87 mg/dL (0.57-1.11); POTASSIUM 3.2 mmol/L (3.5-5.1)
[2017-07-21 08:16] LABS: EOSINOPHILS % (MANUAL) 1 % (0-7); LYMPHOCYTES % (MANUAL) 15 % (19-48); MONOCYTES % (MANUAL) 12 % (3.4-9.0); NEUTROPHILS % (MANUAL) 69 % (40-74); PLATELET ESTIMATE SLIGHTLY INCREASED; RBC MORPHOLOGY COMMENT NORMAL
[2017-07-21 08:17] LABS: ANISOCYTOSIS SLIGHT; HYPOCHROMASIA SLIGHT; PLATELET MORPHOLOGY COMMENT FEW LARGE
[2017-07-21] MEDS ORDERED: SODIUM CHLORIDE 0.9% 1000ML 1,000 ML ONE (09:45)
[2017-07-21] MEDS: BUSPIRONE HCL 5 MG TAB PO SCH ×2 (09:56→16:10)
[2017-07-21] MEDS: PANTOPRAZOLE SOD 40 MG TABEC PO SCH (09:56)
[2017-07-21] MEDS: LIOTHYRONINE SODIUM 5 MCG TAB PO SCH (09:56)
[2017-07-21] MEDS: OXYBUTYNIN CHLORIDE 5 MG TAB PO SCH (09:56)
[2017-07-21] MEDS: PRASUGREL 10 MG TAB PO SCH (09:56)
[2017-07-21] MEDS: ISOSORBIDE MONONITRATE 30 MG TAB CR PO SCH (09:56)
[2017-07-21] MEDS: ASPIRIN 81 MG CHEW TAB PO SCH (09:56)
[2017-07-21] MEDS: AMLODIPINE BESYLATE 5 MG TAB PO SCH (09:56)
[2017-07-21] MEDS: HYDROCODONE/APAP 10MG-325MG TAB PO PRN ×2 (09:56→18:49)
[2017-07-21] MEDS: DULOXETINE HCL 30 MG DELAYED RELEASE PO SCH (09:56)
[2017-07-21] MEDS: TIZANIDINE HCL 4 MG TAB PO SCH ×3 (09:57→21:00)
[2017-07-21] MEDS: CLONIDINE HCL 0.1 MG TAB PO SCH (09:57)
[2017-07-21] MEDS: SODIUM CHLORIDE 0.9% 1000ML 1,000 ML IV SCH ×2 (09:57→23:05)
--- NOTE | 2017-07-21 10:41 | Progress Note ---
DATE: July 21, 2017 CARDIOLOGY PROGRESS NOTE SUBJECTIVE: Patient denies chest pain or shortness of breath. She reports she feels better today. OBJECTIVE VITAL SIGNS: Temperature 97 degrees, pulse 53, respiratory rate 20, blood pressure 142/63. Oxygen saturation is 96% on 2 liters nasal cannula. GENERAL: Morbidly obese woman in no acute distress. Awake and alert. LUNGS: Clear to auscultation bilaterally. No wheezes or crackles. CARDIOVASCULAR: Normal rate, regular rhythm. No murmur. Normal S1, S2. ABDOMEN: Soft, nontender. EXTREMITIES: No edema. CARDIAC MEDICATIONS 1. Clonidine 0.1 mg p.o. daily. 2. Liothyronine 25 mcg p.o. daily. 3. Prasugrel 10 mg p.o. daily. 4. Isosorbide mononitrate 30 mg p.o. daily. 5. Aspirin 81 mg p.o. daily. 6. Amlodipine 10 mg p.o. daily. 7. Metoprolol tartrate 50 mg p.o. q.6 h. LABS: WBC 20.6, hemoglobin 10.8, hematocrit 33.1, platelets 43. Sodium 138, potassium 3.2, chloride 105, CO2 22, BUN 72, creatinine 2.87. RENAL ULTRASOUND: Mildly increased echogenicity at the left renal cortex suggestive of medical renal disease. No hydronephrosis. Status post right nephrectomy. No abnormality in the right renal fossa. TELEMETRY: Normal sinus rhythm. IMPRESSION 1. Presyncope. 2. Atrial fibrillation with rapid ventricular response, currently sinus rhythm. 3. Acute kidney injury on chronic kidney disease, improving. 4. Chronic diastolic heart failure. 5. Coronary artery disease, status post left anterior descending stent with moderate residual coronary artery disease on most recent cardiac catheterization in 2017. 6. Diabetes mellitus. 7. Hypertension. 8. Obstructive sleep apnea. 9. Obesity. RECOMMENDATIONS: Suspect the patient's syncope was a result of orthostatic hypotension and overdiuresis. The patient is improved with IV fluids. Watch volume status closely. Repeat orthostatic vitals today. Continue the patient on telemetry to monitor for arrhythmias. Given the patient's elevated CHADS-VASc score, she will need anticoagulation for CVA prophylaxis, likely to be Coumadin due to her renal function. Continue current cardiac medications otherwise. Thank you for this consult. We will continue to follow. Job#: [id number] MH
[2017-07-21] MEDS ORDERED: POTASSIUM CHLORIDE 20MEQ/100ML 200 ML IV ONE (11:30)
[2017-07-21] MEDS ORDERED: SODIUM CHLORIDE 0.9% 1000ML 1,000 ML IV STA (11:31)
--- NOTE | 2017-07-21 12:26 | Diagnostic Imaging Report ---
PROCEDURE: CT ABDOMEN WITHOUT CONTRAST COMPARISON:[facility], US, US RETROPERITONEAL ( KIDNEY )., 12/11/2015, 11:34. [facility], CT, CT ABDOMEN WO, 05/06/2015, 14:42. INDICATIONS:Adrenal adenoma TECHNIQUE: Routine protocol Volumetric CT abdomen. No intravenous or enteric contrast. Multiplanar reformatted images. FINDINGS: 1.3 cm calcified left lower lobe granuloma. Bibasilar interstitial scar. Lung bases otherwise clear. No pleural effusions. Normal heart size. Liver: Normal Gallbladder: Cholecystectomy. No bile duct dilatation. Pancreas: Normal Spleen: Splenectomy Adrenal glands: Normal bilaterally. Specifically, no nodularity. Kidneys: Right nephrectomy. 2.2 cm coil pack in the left upper renal hilum consistent with treated pseudoaneurysm. 2 mm left inferior pole nonobstructing stone. Otherwise, normal. Imaged portions of the bowel are of normal caliber. No free fluid. Vasculature: Scattered atherosclerotic sclerosis. Normal caliber. Lymph nodes: Normal Soft tissues: Generalized sarcopenia. Skeleton: Intact. Multilevel degenerative disc disease in the thoracic spine. CONCLUSION: 1. No evidence of adrenal adenoma. 2. Right nephrectomy. 3. Treated left renal pseudoaneurysm, stable. 4. Nonobstructive punctate left inferior pole nephrolithiasis. Dictated by: Fran Sofia M.D. on 07/21/2017 at 12:27 Electronically approved by: Fran Sofia M.D. on 07/21/2017 at 12:27
[2017-07-21] MEDS ORDERED: NIFEDIPINE CR 30 MG TAB PO SCH (21:00)
[2017-07-21] MEDS: TRAZODONE HCL 50 MG TAB PO SCH (21:00)
[2017-07-22] VITALS (8 sets, daily range): BP systolic 115–179; BP diastolic 57–79
[2017-07-22] MEDS: ASPIRIN 81 MG CHEW TAB PO SCH (08:47)
[2017-07-22] MEDS: PANTOPRAZOLE SOD 40 MG TABEC PO SCH (08:47)
[2017-07-22] MEDS: LEVOFLOXACIN 500MG/D5W 100ML 100 ML IV SCH (08:47)
[2017-07-22] MEDS: BUSPIRONE HCL 5 MG TAB PO SCH ×2 (08:49→16:55)
[2017-07-22] MEDS: LIOTHYRONINE SODIUM 5 MCG TAB PO SCH (08:49)
[2017-07-22] MEDS: DULOXETINE HCL 30 MG DELAYED RELEASE PO SCH (08:49)
[2017-07-22] MEDS: OXYBUTYNIN CHLORIDE 5 MG TAB PO SCH (08:49)
[2017-07-22] MEDS: TIZANIDINE HCL 4 MG TAB PO SCH ×3 (08:50→20:50)
[2017-07-22] MEDS: ISOSORBIDE MONONITRATE 30 MG TAB CR PO SCH (08:50)
[2017-07-22] MEDS: POLYETHYLENE GLYCOL 3350 17 GM PACK PO SCH (08:50)
[2017-07-22] MEDS ORDERED: FLUCONAZOLE 100 MG TAB PO SCH (09:00)
[2017-07-22] MEDS: HYDROCODONE/APAP 10MG-325MG TAB PO PRN ×2 (09:40→18:25)
--- NOTE | 2017-07-22 10:21 | Progress Note ---
DATE: July 22, 2017 CARDIOLOGY PROGRESS NOTE SUBJECTIVE: Patient denies chest pain or shortness of breath. She states she walked around yesterday without lightheadedness. OBJECTIVE: VITAL SIGNS: Temperature 96.5 degrees, pulse 59, respiratory rate 16, blood pressure 154/67, oxygen saturation 96% on room air. GENERAL: Obese woman, in no acute distress, awake and alert. LUNGS: Clear to auscultation bilaterally. No wheezes or crackles. CARDIOVASCULAR: Normal rate, regular rhythm. No murmur. Normal S1, S2. ABDOMEN: Soft, nontender. EXTREMITIES: No edema. CARDIAC MEDICATIONS: 1. Isosorbide mononitrate 30 mg p.o. daily. 2. Liothyronine 25 mcg p.o. daily. 3. Aspirin 81 mg p.o. daily. 4. Prasugrel 10 mg p.o. daily. LABS: None today. TELEMETRY: Normal sinus rhythm. IMPRESSION: 1. Presyncope. 2. Atrial fibrillation with rapid ventricular response, currently sinus rhythm. 3. Acute kidney injury on chronic kidney disease, improved. 4. Chronic diastolic heart failure. 5. Coronary artery disease, status post left anterior descending artery stent with moderate residual coronary artery disease on most recent cardiac catheterization in 2017. 6. Diabetes mellitus. 7. Hypertension. 8. Obstructive sleep apnea. 9. Obesity. RECOMMENDATIONS: Suspect the patient's syncope was result of orthostatic hypotension and over diuresis. Patient has improved with IV fluids and her renal function has likewise improved. Watch volume status closely. Check BNP. Monitor patient on telemetry. Given the patient's CHADS-VASc score, she will need anticoagulation for CVA prophylaxis, most likely we will need to use Coumadin due to her renal function. Continue current cardiac medications otherwise. Thank you for this consult. We will continue to follow. Job#: [id number]
[2017-07-22] MEDS: PRASUGREL 10 MG TAB PO SCH (10:29)
[2017-07-22] MEDS: TRAZODONE HCL 50 MG TAB PO SCH ×2 (18:25→20:50)
[2017-07-22] MEDS: ONDANSETRON HCL 4 MG ORAL DISINTEGRATING TAB PO PRN (21:02)
[2017-07-23] VITALS (11 sets, daily range): BP systolic 100–176; BP diastolic 53–74
[2017-07-23] MEDS: HYDROCODONE/APAP 10MG-325MG TAB PO PRN ×2 (04:24→15:15)
[2017-07-23] MEDS: ALPRAZOLAM 1 MG TAB PO PRN (05:30)
[2017-07-23 07:19] LABS: BASOPHILS % 0.2 % (0.0-1.0); EOSINOPHILS # (AUTO) 0.4 (0.0-0.4); EOSINOPHILS % 2.6 % (0.0-6.0); HEMATOCRIT 29.2 % (34.2-44.1); HEMOGLOBIN 9.4 g/dL (12.0-16.0); LYMPHOCYTES # (AUTO) 3.3 (1.0-3.2); LYMPHOCYTES % 20.5 % (18.0-39.1); MEAN CORPUSCULAR HEMOGLOBIN 27.2 pg (28-32); MEAN CORPUSCULAR HGB CONC 32.2 g/dL (31-35); MEAN CORPUSCULAR VOLUME 84.4 fL (81-99); MONOCYTES # (AUTO) 1.6 (0.2-0.8); MONOCYTES % 9.9 % (4.4-11.3); NEUTROPHILS # (AUTO) 10.4 (2.1-6.9); NEUTROPHILS % 65.2 % (38.7-80.0); PLATELET COUNT 469 x10e3/uL (140-360); RED BLOOD COUNT 3.46 x10e6/uL (3.6-5.1); RED CELL DISTRIBUTION WIDTH 15.2 % (11.7-14.4)
[2017-07-23 07:24] LABS: ALBUMIN 2.5 g/dL (3.5-5.0); ALBUMIN/GLOBULIN RATIO 0.9 (0.8-2.0); ANION GAP 12.9 mmol/L (8-16); CALCIUM 8.5 mg/dL (8.4-10.2); CREATININE, SERUM 2.3 mg/dL (0.57-1.11); MAGNESIUM 1.7 MG/DL (1.3-2.1); POTASSIUM 3.9 mmol/L (3.5-5.1)
[2017-07-23] MEDS: LIOTHYRONINE SODIUM 5 MCG TAB PO SCH (08:45)
[2017-07-23] MEDS: DULOXETINE HCL 30 MG DELAYED RELEASE PO SCH (08:45)
[2017-07-23] MEDS: METOPROLOL SUCCINATE 25 MG TAB XL PO SCH (08:45)
[2017-07-23] MEDS: POLYETHYLENE GLYCOL 3350 17 GM PACK PO SCH (08:45)
[2017-07-23] MEDS: PANTOPRAZOLE SOD 40 MG TABEC PO SCH (08:45)
[2017-07-23] MEDS: PRASUGREL 10 MG TAB PO SCH (08:45)
[2017-07-23] MEDS: BUSPIRONE HCL 5 MG TAB PO SCH ×2 (08:45→17:00)
[2017-07-23] MEDS: ASPIRIN 81 MG CHEW TAB PO SCH (08:45)
[2017-07-23] MEDS: TIZANIDINE HCL 4 MG TAB PO SCH ×3 (08:45→21:37)
[2017-07-23] MEDS: ISOSORBIDE MONONITRATE 30 MG TAB CR PO SCH (08:45)
[2017-07-23] MEDS: OXYBUTYNIN CHLORIDE 5 MG TAB PO SCH (08:45)
[2017-07-23 09:41] LABS: ANISOCYTOSIS SLIGHT; EOSINOPHILS % (MANUAL) 4 % (0-7); HYPOCHROMASIA SLIGHT; LYMPHOCYTES % (MANUAL) 24 % (19-48); MONOCYTES % (MANUAL) 7 % (3.4-9.0); NEUTROPHILS % (MANUAL) 65 % (40-74); RBC MORPHOLOGY COMMENT NORMAL
[2017-07-23 09:42] LABS: PLATELET ESTIMATE ADEQUATE; PLATELET MORPHOLOGY COMMENT NORMAL; POIKILOCYTOSIS SLIGHT
[2017-07-23] MEDS: TERBINAFINE 250 MG TAB PO SCH (10:33)
--- NOTE | 2017-07-23 11:41 | Progress Note ---
DATE: July 23, 2017 CARDIOLOGY PROGRESS NOTE SUBJECTIVE: Patient denies chest pain or shortness of breath. She feels better. OBJECTIVE VITAL SIGNS: Temperature 97.5 degrees, pulse 65, respiratory rate 18, blood pressure 145/67, oxygen saturation 95% on 2 L nasal cannula. GENERAL: Morbidly obese woman, in no acute distress, awake and alert. LUNGS: Clear to auscultation bilaterally. No wheezes or crackles. CARDIOVASCULAR: Normal rate, regular rhythm. No murmur. Normal S1, S2. ABDOMEN: Soft, nontender. EXTREMITIES: No edema. CARDIAC MEDICATIONS 1. Metoprolol succinate 25 mg p.o. daily. 2. Liothyronine 25 mcg p.o. daily. 3. Prasugrel 10 mg p.o. daily. 4. Isosorbide mononitrate 30 mg p.o. daily. 5. Aspirin 81 mg p.o. daily. LABS: WBC 15.91, hemoglobin 9.4, hematocrit 29.2, platelets 469. Sodium 140, potassium 3.9, chloride 112, CO2 19, BUN 47, creatinine 2.3. TELEMETRY: Normal sinus rhythm. IMPRESSION 1. Presyncope. 2. Atrial fibrillation with rapid ventricular response, currently sinus rhythm. 3. Acute kidney injury on chronic kidney disease, improved. 4. Chronic diastolic heart failure. 5. Coronary artery disease, status post left anterior descending artery stent with moderate residual coronary artery disease on most recent cardiac catheterization in 2017. 6. Diabetes mellitus. 7. Hypertension. 8. Obstructive sleep apnea. 9. Obesity. RECOMMENDATIONS: Suspect the patient's syncope was result of orthostatic hypotension and over-diuresis. Patient has improved with IV fluids, and her renal function has improved as well. Watch volume status closely. BNP was normal. Check orthostatic vitals. Monitor patient on telemetry. Given the patient's CHADS-VASc score, she will need anticoagulation for CVA prophylaxis. This was discussed with the patient, who agrees to proceed. Start warfarin. Continue current cardiac medications otherwise. Thank you for this consult. We will continue to follow. Job#: [id number]
[2017-07-23] MEDS: ONDANSETRON HCL 4 MG ORAL DISINTEGRATING TAB PO PRN (16:48)
[2017-07-23] MEDS ORDERED: WARFARIN SOD 5 MG TAB PO ONE (17:00)
[2017-07-23] MEDS: TRAZODONE HCL 50 MG TAB PO SCH (21:37)
[2017-07-24] VITALS: BP 122/56
[2017-07-24] MEDS: HYDROCODONE/APAP 10MG-325MG TAB PO PRN ×2 (02:44→08:50)
[2017-07-24 04:00] VITALS: BP 159/71
[2017-07-24] MEDS: BISACODYL 5 MG TAB EC PO SCH ×3 (06:17→17:41)
[2017-07-24 08:26] VITALS: BP 157/70
[2017-07-24] MEDS: DULOXETINE HCL 30 MG DELAYED RELEASE PO SCH (08:48)
[2017-07-24] MEDS: LIOTHYRONINE SODIUM 5 MCG TAB PO SCH (08:48)
[2017-07-24] MEDS: ASPIRIN 81 MG CHEW TAB PO SCH (08:48)
[2017-07-24] MEDS: PRASUGREL 10 MG TAB PO SCH (08:48)
[2017-07-24] MEDS: OXYBUTYNIN CHLORIDE 5 MG TAB PO SCH (08:48)
[2017-07-24] MEDS: PANTOPRAZOLE SOD 40 MG TABEC PO SCH (08:48)
[2017-07-24] MEDS: BUSPIRONE HCL 5 MG TAB PO SCH ×2 (08:48→17:40)
[2017-07-24] MEDS: TERBINAFINE 250 MG TAB PO SCH (08:49)
[2017-07-24] MEDS: METOPROLOL SUCCINATE 25 MG TAB XL PO SCH (08:49)
[2017-07-24] MEDS: ISOSORBIDE MONONITRATE 30 MG TAB CR PO SCH (08:49)
[2017-07-24] MEDS: TIZANIDINE HCL 4 MG TAB PO SCH ×2 (08:50→15:37)
[2017-07-24] MEDS: POLYETHYLENE GLYCOL 3350 17 GM PACK PO SCH (08:50)
[2017-07-24] MEDS: LEVOFLOXACIN 500MG/D5W 100ML 100 ML IV SCH (10:28)
[2017-07-24 11:57] VITALS: BP 132/62
[2017-07-24 14:29] VITALS: BP 132/62
[2017-07-24 15:54] VITALS: BP 155/67
[2017-07-24] MEDS ORDERED: SODIUM BICARBONATE 650 MG TAB PO SCH (17:00)
[2017-07-24] MEDS ORDERED: WARFARIN SOD 5 MG TAB PO SCH (17:30)
--- NOTE | 2017-07-24 18:02 | Progress Note ---
DATE: July 24, 2017 CARDIOLOGY PROGRESS NOTE SUBJECTIVE: The patient denies chest pain or shortness of breath. OBJECTIVE VITAL SIGNS: Temperature 97.4 degrees, pulse 58, respiratory rate 20, blood pressure 157/70, oxygen saturation 98% on 2 liters nasal cannula. GENERAL: A morbidly obese woman in no acute distress, awake and alert. LUNGS: Clear to auscultation bilaterally. No wheezes or crackles. CARDIOVASCULAR: Normal rate, regular rhythm. No murmur. Normal S1 and S2. ABDOMEN: Soft, nontender. EXTREMITIES: No edema. CARDIAC MEDICATIONS 1. Metoprolol succinate 25 mg p.o. daily. 2. Isosorbide mononitrate 30 mg p.o. daily. 3. Levothyroxine 25 mcg p.o. daily. 4. Aspirin 81 mg p.o. daily. 5. Plavix 75 mg p.o. daily. LABS: None today. TELEMETRY: Normal sinus rhythm. IMPRESSION 1. Presyncope. 2. Atrial fibrillation with rapid ventricular response, currently sinus rhythm. 3. Acute kidney injury on chronic kidney disease, improved. 4. Chronic diastolic heart failure. 5. Coronary artery disease status post left anterior descending artery stent with moderate residual coronary artery disease on most recent cardiac catheterization in 2017. 6. Diabetes mellitus. 7. Hypertension. 8. Obstructive sleep apnea. 9. Obesity. RECOMMENDATIONS: Suspect the patient's syncope was the result of orthostatic hypotension and overdiuresis. Patient has improved with IV fluids, and her renal function has improved. Watch volume status closely. She may need daily diuretics to keep even. We will monitor. Monitor patient on telemetry. Given patient's CHADS-VASc score, she will need anticoagulation for CVA prophylaxis. Discussed indication for warfarin in this patient given her significant chronic kidney disease. Discussed the risks and benefits of anticoagulation including risk of bleeding. She agrees to proceed. We will stop Effient given initiation of warfarin and change patient to Plavix. Continue current cardiac medications otherwise. We will also stop aspirin. Thank you for this consult. We will continue to follow. Job#: [id number] EV
[2017-07-25] MEDS ORDERED: CLOPIDOGREL BISULFATE 75 MG TAB PO SCH (09:00)
== END 2017-07-24 18:29 | disposition home or self-care (01) | DRG 683 ==
LOC: ER 16:10 → ERHOLD 18:43 → OBSVTOIN 07-19 13:40 → MED/SURG3 07-19 14:36
PROVIDERS: ADMIT Internal Medicine; ATTEND Internal Medicine
DX: N17.9 Acute kidney failure, unspecified (principal); I13.0 Hypertensive heart and chronic kidney disease with heart failure and stage 1 through stage 4 chronic kidney disease, or unspecified chronic kidney disease; Z68.43 Body mass index [BMI] 50.0-59.9, adult; I50.32 Chronic diastolic (congestive) heart failure; N18.4 Chronic kidney disease, stage 4 (severe); D72.829 Elevated white blood cell count, unspecified; E03.9 Hypothyroidism, unspecified; F32.9 Major depressive disorder, single episode, unspecified; E11.22 Type 2 diabetes mellitus with diabetic chronic kidney disease; Z79.4 Long term (current) use of insulin; I48.91 Unspecified atrial fibrillation; I25.10 Atherosclerotic heart disease of native coronary artery without angina pectoris; Z95.1 Presence of aortocoronary bypass graft; G47.33 Obstructive sleep apnea (adult) (pediatric); I95.1 Orthostatic hypotension; K59.00 Constipation, unspecified; Z90.5 Acquired absence of kidney; N20.0 Calculus of kidney; M17.0 Bilateral primary osteoarthritis of knee; R60.0 Localized edema; R32 Unspecified urinary incontinence; Z88.0 Allergy status to penicillin; Z88.2 Allergy status to sulfonamides; I25.2 Old myocardial infarction; Z85.528 Personal history of other malignant neoplasm of kidney; E66.01 Morbid (severe) obesity due to excess calories
CPT/HCPCS: 36415; 71045; 74150; 74176; 76770; 80048; 80053; 82550; 82553; 83605; 83735; 83880; 84436; 84443; 84479; 84484; 85025; 85610; 85730; 87040; 87086; 93005; 96366; 97139; G0378; J1170; J1956; J3480; J7030

== ENCOUNTER → 2017-11-04 | Outpatient (CLI) | payer BC | LOC: WCC 09:07 | PROVIDERS: ATTEND Family Medicine | DX: B37.2 Candidiasis of skin and nail (principal); S31.000A Unspecified open wound of lower back and pelvis without penetration into retroperitoneum, initial encounter; L98.9 Disorder of the skin and subcutaneous tissue, unspecified; I10 Essential (primary) hypertension; I48.91 Unspecified atrial fibrillation; I50.9 Heart failure, unspecified; E78.00 Pure hypercholesterolemia, unspecified; G47.33 Obstructive sleep apnea (adult) (pediatric); I25.10 Atherosclerotic heart disease of native coronary artery without angina pectoris; J44.9 Chronic obstructive pulmonary disease, unspecified; K21.9 Gastro-esophageal reflux disease without esophagitis; M48.00 Spinal stenosis, site unspecified; M54.30 Sciatica, unspecified side; N18.4 Chronic kidney disease, stage 4 (severe) | CPT/HCPCS: 36415; 82948; 87071; 87075; 87205 ==

== ENCOUNTER → 2017-11-11 | Outpatient (CLI) | payer BC | LOC: WCC 08:51 | PROVIDERS: ATTEND Family Medicine Adult Medicine | DX: S31.000A Unspecified open wound of lower back and pelvis without penetration into retroperitoneum, initial encounter (principal); B37.2 Candidiasis of skin and nail; L98.9 Disorder of the skin and subcutaneous tissue, unspecified; N18.4 Chronic kidney disease, stage 4 (severe); I10 Essential (primary) hypertension; E78.00 Pure hypercholesterolemia, unspecified; I50.9 Heart failure, unspecified; I48.91 Unspecified atrial fibrillation; I25.10 Atherosclerotic heart disease of native coronary artery without angina pectoris; A49.01 Methicillin susceptible Staphylococcus aureus infection, unspecified site; M48.00 Spinal stenosis, site unspecified; M54.30 Sciatica, unspecified side; K21.9 Gastro-esophageal reflux disease without esophagitis; E66.01 Morbid (severe) obesity due to excess calories; G47.33 Obstructive sleep apnea (adult) (pediatric); J44.9 Chronic obstructive pulmonary disease, unspecified ==

== ENCOUNTER 2018-01-25 22:11 | Emergency (ER) | payer BC ==
[~2018-01-25] VITALS: Ht 154.9 cm; Wt 123.4 kg
[2018-01-25] MEDS ORDERED: HYDROMORPHONE 1MG/1ML INJ IM STA (22:35)
[2018-01-25] MEDS ORDERED: HYDROMORPHONE 2MG/ML 2 MG/ML ML ONE (22:55)
--- NOTE | 2018-01-25 23:42 | Diagnostic Imaging Report ---
Examination: CT LUMBAR SPINE WITHOUT CONTRAST History: Low back pain after trauma. Comparison studies: None Technique: Axial images were obtained through the lumbar spine from T12. Coronal and sagittal reconstructions obtained from the axial data. Dose modulation, iterative reconstruction, and/or weight based adjustment of the mA/kV was utilized to reduce the radiation dose to as low as reasonably achievable. Intravenous contrast: None Findings: The usual 5 non-rib bearing lumbar vertebral bodies are present. Alignment: Normal lordosis. No scoliosis. Soft tissues: Right nephrectomy. Prior left renal artery embolization. Paraspinal muscles: Unremarkable. Sacroiliac joints: Vacuum phenomenon bilaterally. Vertebrae: No fractures, infection or neoplasm. Degenerative changes: L1-L2: MIld bilateral facet arthropathy. No canal or foraminal stenosis. L2-L3: Asymmetric to the left disc bulge results in mild left neural foraminal narrowing. No canal or right foraminal stenosis. L3-L4: Diffuse disc bulge and mild right and moderate left facet arthropathy. No canal or foraminal stenosis. L4-L5: Diffuse disc bulge, ligamentum flavum thickening and severe bilateral facet arthropathy result in moderate bilateral neural foraminal narrowing and at least moderate canal stenosis. L5-S1: Right foraminal disc protrusion result in severe right foraminal narrowing. No left foraminal or canal stenosis. IMPRESSION: 1. No acute abnormalities. 2. Degenerative change, as above. Signed by: Dr. Audrey Covington M.D. on 01/25/2018 11:39 PM
--- NOTE | 2018-01-26 | Diagnostic Imaging Report ---
HIP LEFT 2-3 VW (+/- PELVIS) HISTORY: Status post fall down stairs. Pain to left hip and knee. COMPARISON: None available. FINDINGS: Bones: No acute displaced fracture. Osseous alignment is within normal limits. Joints: Mild degenerative changes of the hips. Soft tissues: The soft tissues appear unremarkable. IMPRESSION: No acute radiographic abnormality. Signed by: DR. Bird Haynes MD on 01/25/2018 11:56 PM
--- NOTE | 2018-01-26 00:01 | Diagnostic Imaging Report ---
KNEE LEFT THREE VIEWS HISTORY: Status post fall down stairs. Pain to left hip and knee. COMPARISON: None available. FINDINGS: Bones: No acute displaced fracture. Osseous alignment is within normal limits. Joints: Advanced tricompartmental degenerative changes. Soft tissues: Small joint effusion. Vascular calcifications. IMPRESSION: No acute radiographic abnormality. Signed by: DR. Bird Haynes MD on 01/25/2018 11:58 PM
== END 2018-01-26 03:06 | disposition home or self-care (01) ==
LOC: ER 22:11
DX: M54.5 Low back pain (principal); S33.5XXA Sprain of ligaments of lumbar spine, initial encounter; S73.102A Unspecified sprain of left hip, initial encounter; S83.92XA Sprain of unspecified site of left knee, initial encounter; W10.8XXA Fall (on) (from) other stairs and steps, initial encounter; Y92.008 Other place in unspecified non-institutional (private) residence as the place of occurrence of the external cause; N18.9 Chronic kidney disease, unspecified; I10 Essential (primary) hypertension; I50.9 Heart failure, unspecified; E03.9 Hypothyroidism, unspecified; I25.2 Old myocardial infarction
CPT/HCPCS: 72131; 73502; 73562; 99283; J1170

== ENCOUNTER 2018-03-03 12:48 | Inpatient (IN) | payer BC ==
[~2018-03-03] VITALS: Ht 154.9 cm; Wt 129.7 kg
[2018-03-03] MEDS ORDERED: SODIUM CHLORIDE 0.9% 1000ML 1,000 ML IV ONE (13:00)
[2018-03-03 13:25] LABS: BASOPHILS # (AUTO) 0.1 (0.0-0.1); BASOPHILS % 0.6 % (0.0-1.0); EOSINOPHILS # (AUTO) 0.4 (0.0-0.4); EOSINOPHILS % 2.4 % (0.0-6.0); HEMATOCRIT 37.1 % (34.2-44.1); HEMOGLOBIN 11.5 g/dL (12.0-16.0); LYMPHOCYTES # (AUTO) 3.9 (1.0-3.2); LYMPHOCYTES % 24.1 % (18.0-39.1); MEAN CORPUSCULAR HEMOGLOBIN 26.3 pg (28-32); MEAN CORPUSCULAR VOLUME 84.9 fL (81-99); MONOCYTES # (AUTO) 1.5 (0.2-0.8); MONOCYTES % 8.9 % (4.4-11.3); NEUTROPHILS # (AUTO) 10.3 (2.1-6.9); NEUTROPHILS % 63.2 % (38.7-80.0); PLATELET COUNT 686 x10e3/uL (140-360); RED BLOOD COUNT 4.37 x10e6/uL (3.6-5.1); RED CELL DISTRIBUTION WIDTH 16.1 % (11.7-14.4)
[2018-03-03 13:28] LABS: BILIRUBIN,URINE NEGATIVE (NEGATIVE); CLARITY,URINE HAZY (CLEAR); COLOR,URINE STRAW (YELLOW); KETONES,URINE NEGATIVE (NEGATIVE); LEUKOCYTE ESTERASE ,URINE TRACE (NEGATIVE); NITRITE,URINE NEGATIVE (NEGATIVE); PROTEIN,URINE DIPSTICK 2+ (NEGATIVE); URINE UROBILINOGEN 0.2 mg/dL (0.2 - 1)
[2018-03-03 13:41] LABS: WBC,URINE (MAN) 21-50 /HPF (0-5)
[2018-03-03 13:43] LABS: EPITHELIAL CELLS,URINE FEW /LPF; RENAL EPITHELIAL CELLS,URINE FEW; TRANSITIONAL EPI CELLS,URINE RARE
[2018-03-03 13:46] LABS: ALBUMIN 2.9 g/dL (3.5-5.0); ALBUMIN/GLOBULIN RATIO 0.6 (0.8-2.0); ANION GAP 15.8 mmol/L (8-16); CALCIUM 9.6 mg/dL (8.4-10.2); CREATININE, SERUM 2.74 mg/dL (0.57-1.11); POTASSIUM 3.8 mmol/L (3.5-5.1)
[2018-03-03] MEDS ORDERED: ONDANSETRON HCL INJ 2MG/ML 2ML 2 MG/ML VIAL IV STA (13:58)
[2018-03-03] MEDS ORDERED: DICYCLOMINE HCL 20 MG/2 ML VIAL IM ONE (14:00)
[2018-03-03] MEDS ORDERED: FENTANYL CITRATE/PF 100MCG/2 ML INJ IV ONE (14:00)
[2018-03-03] MEDS ORDERED: GLYCOPYRROLATE INJ 1MG/ 5 ML SYR ONE (14:32)
[2018-03-03] MEDS ORDERED: PROPOFOL IV EMULSION 10 MG/ML 20 ML VIAL ONE (14:32)
[2018-03-03] MEDS ORDERED: NEOSTIGMINE 5 MG/5ML SYR ONE (14:32)
[2018-03-03] MEDS ORDERED: ROCURONIUM BROMIDE 10 MG/ML 5ML VIAL ONE (14:32)
[2018-03-03] MEDS ORDERED: LIDOCAINE HCL 2% LOCAL INJ 5 ML SDV VIAL INJ ONE (14:32)
--- NOTE | 2018-03-03 14:40 | NUR ---
MEDICATED PT FOR PAIN AND NAUSEA ORDERED. PT TO GO FOR CT SCAN AND IS AWARE OF THIS.
--- NOTE | 2018-03-03 16:19 | Diagnostic Imaging Report ---
EXAM: CT of the abdomen and pelvis WITHOUT contrast HISTORY: Left flank pain,Nausea, Vomiting, evaluate for stone, recently treated for UTI COMPARISON: Images from CT of the abdomen July 21, [address] of the abdomen and pelvis July 18, 2017 TECHNIQUE: The abdomen and pelvis were scanned utilizing a multidetector helical scanner. Coronal and sagittal reformats are available. PROTOCOL: Renal colic IV CONTRAST: None, which limits sensitivity and specificity of evaluation of the soft tissues and vascular structures. ORAL CONTRAST: None, which limits sensitivity and specificity of evaluation of the bowel. RADIATION DOSE: Total DLP: 870.41 mGy*cm Estimated effective dose: (DLP x 0.015 x size factor) Dose modulation, iterative reconstruction, and/or weight based adjustment of the mA/kV was utilized to reduce the radiation dose to as low as reasonably achievable. COMPLICATIONS: None FINDINGS: Soft tissue attenuation partially limits sensitivity of the exam. LOWER THORAX: A 3 mm calcified granuloma the inferior aspect of the left upper lobe (series 3 image 5). A stable 1.2 cm partially calcified left lower lobe granuloma. HEPATOBILIARY: No definite focal hepatic lesions. No biliary ductal dilatation. Metallic clips in the right upper quadrant of the abdomen are compatible with prior cholecystectomy. SPLEEN: No spleen is visualized, correlate with prior surgical history. PANCREAS: No focal masses or ductal dilatation. ADRENALS: No discrete adrenal nodule. KIDNEYS/URETERS: No right kidney is present, postsurgical changes in the right renal bed. 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 Mild left perinephric fat stranding. Stable punctate calcifications near the inferior pole of the right kidney (series 3 image 92) and 5 mm medial parenchymal calcification (series 3 image 83). No right hydronephrosis, mild nonspecific prominence of portions of the right ureter, may be secondary to peristalsis. PELVIC ORGANS/BLADDER: The visualized pelvic organs appear unremarkable. PERITONEUM / RETROPERITONEUM: No free air or fluid. GI TRACT: The stomach is partially decompressed, which limits evaluation. No bowel dilation. LYMPH NODES: A nonspecific 1 cm left periaortic retroperitoneal lymph node (series 3 image 105), increased in size since the comparison. VESSELS: Scattered atherosclerotic vascular calcifications, including the coronary arteries. BONES: Diffusely decreased mineralization of the osseous structures limits bone detail. Interval mild superior endplate compression deformities of T12 and L1. SOFT TISSUES: Diffuse muscle atrophy. IMPRESSION: 1. No hydronephrosis or ureteral stone. 2. Two stable small nonobstructing inferior left renal calcifications. 3. Nonspecific borderline 1 cm left periaortic retroperitoneal lymph node, increased in size since comparison. 4. Coronary artery disease. 5. Osteoporosis with interval mild superior endplate compression fracture deformities of T12 and L1. Signed by: Dr. Sergio Almazan D.O., M.M.M. on 03/03/2018 4:16 PM
[2018-03-03] MEDS ORDERED: GENTAMICIN 60MG/NS 50ML 50 ML IV ONE (16:45)
[2018-03-03] MEDS ORDERED: SODIUM CHLORIDE FLUSH 10 ML SYR INJ PRN (16:45)
[2018-03-03] MEDS ORDERED: HYDROCODONE/APAP 5MG-325MG TAB PO PRN (16:45)
[2018-03-03] MEDS ORDERED: HYOSCYAMINE 0.125 MG TAB PO PRN (16:45)
--- NOTE | 2018-03-03 16:56 | NUR ---
DR. GIRARD IN TO SPEAK WITH PT AND SON REGARDING RESULTS OF ALL STUDIES. PT TO BE ADMITTED AND IS AWARE OF THIS. PT REQUESTING DILAUDID AND ZOFRAN FOR PAIN AND NAUSEA. WILL CALL DR. ACOSTA TO INFORM AND GET ORDERS.
[2018-03-03] MEDS ORDERED: HYDROCODONE/APAP 10MG-325MG TAB PO PRN (17:15)
--- NOTE | 2018-03-03 17:19 | NUR ---
DR. ACOSTA RETURNED CALL AND GAVE ORDERS FOR DILAUDID 1 MG IVP Q3 HRS PRN PAIN AND CHNAGE TO HYDROCODONE 10 MG PO TID FOR BREAK THROUGH PAIN ONLY. ORDERS IN EMR AT THIS TIME.
--- NOTE | 2018-03-03 17:20 | NUR ---
PENDING ROOM ASSIGNMENT AT THIS TIME AND PT AWARE OF THIS.
[2018-03-03] MEDS: ONDANSETRON HCL INJ 2MG/ML 2ML 2 MG/ML VIAL IV PRN ×2 (17:26→23:35)
[2018-03-03] MEDS: HYDROMORPHONE 2MG/ML 2 MG/ML ML IV PRN ×3 (17:28→23:35)
--- NOTE | 2018-03-03 17:31 | NUR ---
PT MEDICATED FOR PAIN AND NAUSEA ORDERED. IV ANTIBIOTICS INFUSING ORDERED.
[2018-03-03 18:20] VITALS: BP 172/72
--- NOTE | 2018-03-03 18:45 | NUR ---
Pt received from ER via stretcher. Alert and oriented x4, oriented to staff and surroundings. Saline lock #20 patent in right AC. Emotional support given. Fall precautions maintained. Call pedersen within reach. Will monitor
--- NOTE | 2018-03-03 19:02 | NUR ---
Patient visited in room during nursing rounds. Patient alert and oriented x3. Patient claims she is weak to ambulate prn and has been using wheelchair or walker at home prn. Patient strong to turn in bed. Patient with intermittent pain on left flank or lower back. at bedside. Will monitor patient closely.
[2018-03-03] MEDS: FAMOTIDINE 20 MG/2 ML VIAL IV SCH (19:20)
--- NOTE | 2018-03-03 19:31 | NUR ---
Handoff given to oncoming nurse. Walking rounds done
[2018-03-03 20:00] VITALS: BP 196/81
--- NOTE | 2018-03-03 20:30 | NUR ---
Obtained order from Dr. Torres to continue home meds. Dr. Rosado informed patient's BP = 196/81. ordered Hydralazine 10mg IV prn for SBP > 180 and DBP > 100.
[2018-03-03] MEDS ORDERED: Linzess PO (22:01)
[2018-03-03] MEDS ORDERED: POTASSIUM CHLO10 ME1 PO (22:01)
[2018-03-03] MEDS ORDERED: ZOFRAN8 MG PO (22:01)
[2018-03-03] MEDS ORDERED: BUMETANIDE1 MG PO (22:01)
[2018-03-03] MEDS ORDERED: PLAVIX75 MG PO (22:01)
[2018-03-03] MEDS ORDERED: TIZANIDINE HCL4 M1 PO (22:01)
[2018-03-03] MEDS ORDERED: COUMADIN2 MG PO (22:01)
[2018-03-03] MEDS ORDERED: TERBINAFINE HC250 MG PO (22:01)
[2018-03-03] MEDS ORDERED: METOPROLOL SUCC50 MG PO (22:01)
[2018-03-03] MEDS ORDERED: HYDROXYZINE HCL25 MG PO (22:01)
[2018-03-03] MEDS ORDERED: DICYCLOMINE HCL10 MG PO (22:01)
--- NOTE | 2018-03-03 22:12 | NUR ---
Spoke to Dr. Wyatt over the phone and informed him that he was newly consulted on the patient for UTI with failed antibiotic treatments. MD aware and will see patient next day (03/04/18).
[2018-03-03] MEDS ORDERED: BUMETANIDE 1 MG TAB PO PRN (22:15)
[2018-03-03] MEDS ORDERED: DICYCLOMINE HCL 10 MG CAP PO PRN (22:15)
[2018-03-03] MEDS ORDERED: CLONIDINE HCL 0.1 MG TAB PO PRN (22:15)
[2018-03-03] MEDS ORDERED: TIZANIDINE HCL 4 MG TAB PO PRN (22:15)
[2018-03-03] MEDS ORDERED: POTASSIUM CHLORIDE 10MEQ EA PO PRN (22:15)
[2018-03-03] MEDS ORDERED: LINACLOTIDE 145 MCG CAPSULE PO PRN (22:15)
[2018-03-03] MEDS ORDERED: HYDROXYZINE HCL 25 MG TAB PO PRN (22:15)
[2018-03-03] MEDS ORDERED: NITROGLYCERIN 0.4 MG SUBL SL PRN (22:15)
[2018-03-03] MEDS: ALPRAZOLAM 1 MG TAB PO SCH (22:35)
[2018-03-03] MEDS: TRAZODONE HCL 50 MG TAB PO SCH (22:35)
[2018-03-03 23:18] VITALS: BP 155/69
[2018-03-04] VITALS (8 sets, daily range): BP systolic 141–187; BP diastolic 65–78
[2018-03-04] MEDS: HYDROMORPHONE 2MG/ML 2 MG/ML ML IV PRN ×5 (03:00→21:50)
--- NOTE | 2018-03-04 05:28 | NUR ---
Dr. Torres confirmed patient does need to take Plavix 75mg and Coumadin 4mg within the same day for history of cardiac stent.
[2018-03-04 05:46] LABS: BASOPHILS # (AUTO) 0.1 (0.0-0.1); BASOPHILS % 0.6 % (0.0-1.0); EOSINOPHILS # (AUTO) 0.5 (0.0-0.4); EOSINOPHILS % 3.2 % (0.0-6.0); HEMATOCRIT 32.5 % (34.2-44.1); HEMOGLOBIN 10.1 g/dL (12.0-16.0); LYMPHOCYTES # (AUTO) 3.2 (1.0-3.2); LYMPHOCYTES % 22.3 % (18.0-39.1); MEAN CORPUSCULAR HEMOGLOBIN 26.2 pg (28-32); MEAN CORPUSCULAR HGB CONC 31.1 g/dL (31-35); MEAN CORPUSCULAR VOLUME 84.4 fL (81-99); MONOCYTES # (AUTO) 1.5 (0.2-0.8); NEUTROPHILS # (AUTO) 9.2 (2.1-6.9); NEUTROPHILS % 63.5 % (38.7-80.0); PLATELET COUNT 635 x10e3/uL (140-360); RED BLOOD COUNT 3.85 x10e6/uL (3.6-5.1); RED CELL DISTRIBUTION WIDTH 16.1 % (11.7-14.4)
[2018-03-04 06:02] LABS: CALCIUM 9.2 mg/dL (8.4-10.2); CREATININE, SERUM 2.37 mg/dL (0.57-1.11)
--- NOTE | 2018-03-04 08:10 | NUR ---
Pt received resting in bed with at bedside. Emotional support given. Call pedersen within reach. Pain meds given as ordered. Will monitor
[2018-03-04] MEDS: LIOTHYRONINE SODIUM 5 MCG TAB PO SCH (08:13)
[2018-03-04] MEDS: BUSPIRONE HCL 5 MG TAB PO SCH ×2 (08:13→18:32)
[2018-03-04] MEDS: FAMOTIDINE 20 MG/2 ML VIAL IV SCH ×2 (08:13→18:31)
[2018-03-04] MEDS: DULOXETINE HCL 30 MG DELAYED RELEASE PO SCH (08:13)
[2018-03-04] MEDS: ONDANSETRON HCL INJ 2MG/ML 2ML 2 MG/ML VIAL IV PRN (08:14)
[2018-03-04] MEDS: OXYBUTYNIN CHLORIDE 5 MG TAB PO SCH (08:14)
[2018-03-04] MEDS: ISOSORBIDE MONONITRATE 30 MG TAB CR PO SCH (08:14)
[2018-03-04] MEDS: TERBINAFINE 250 MG TAB PO SCH (08:14)
[2018-03-04] MEDS: METOPROLOL SUCCINATE 50 MG TAB XL PO SCH (08:14)
[2018-03-04] MEDS: ALPRAZOLAM 1 MG TAB PO SCH ×3 (08:14→21:50)
[2018-03-04] MEDS: AMLODIPINE BESYLATE 5 MG TAB PO SCH (08:14)
[2018-03-04] MEDS: CLOPIDOGREL BISULFATE 75 MG TAB PO SCH (08:14)
[2018-03-04] MEDS: PANTOPRAZOLE SOD 40 MG TABEC PO SCH (08:14)
[2018-03-04] MEDS ORDERED: SODIUM CHLORIDE 0.9% 250ML 250 ML ONE (14:42)
--- NOTE | 2018-03-04 15:04 | Consultation ---
DATE OF CONSULTATION: March 04, 2018 REASON FOR CONSULTATION: UTI. HISTORY OF PRESENT ILLNESS: This patient is a 62-year-old white female with history of obesity, history of allergies to several antibiotics including penicillin, sulfa drugs, amoxicillin, cephalexin showing skin rash comes in with fever and chills. The patient is being admitted and infectious disease was consulted because she has multiple allergies. The patient has history of obesity, hypertension, GERD, nausea and she was admitted with the above complaint. She is currently lying in bed comfortably. She received a dose of gentamicin. Patient currently laying in bed complaining of urgency and frequency. PAST MEDICAL HISTORY: As above. PAST SURGICAL HISTORY: As above. ALLERGIES: NKA. SOCIAL HISTORY: No smoking, drug abuse or alcohol abuse. FAMILY HISTORY: Otherwise unremarkable. REVIEW OF SYSTEMS: HEENT: Negative. PULMONARY: Negative. CARDIAC: Negative. GI: Negative. SKIN: There is no rash. PHYSICAL EXAMINATION: GENERAL: She is currently alert, oriented and does not seem to be in acute distress, obese. VITALS: Stable. Afebrile. HEENT: She is not icteric. NECK: Supple. CHEST: Clear bilaterally. HEART: S1 and S2. No murmur. ABDOMEN: Soft, obese. IMPRESSION: Urinary tract infection. RECOMMENDATIONS: I agree with urine culture and blood culture. Will put the patient on Invanz. Multiple drug allergies. Will follow. Will see how she does clinically. Job#: [id number]
[2018-03-04] MEDS: ERTAPENEM 1GM/NS 100ML 100 ML IV SCH (15:33)
--- NOTE | 2018-03-04 16:12 | NUR ---
CASE MANAGEMENT INITIAL ASSESSMENT Wreath Machine Tender to bedside to discuss plan of care with patient/family. CM/SW role and care transitions discussed. Anticipated discharge plan discussed along with duration of care. CM/SW discussed patients right to make decisions in care. CM/SW work hours given. Patient lives: PT LIVES W SPOUSE AND 2 SONS Admit/Transfer: ADMITTED VIA ER FROM HOME POA/Emergency contact: / SRIDHAR Current/Previous Home Health: YES; AFTER HYSTERECTOMY >10YRS AGO. PCP/Follow-up Care: DR. ACOSTA Current/Previous DME: WC, WALKER, CANE CPAP W APRIA, SC, GLUCOMETER, BP MONITOR Other Services: NONE Employment Status: NONE Areas of Concerns: WAS SCHEDULED TO FLY TO [facility] @ 12NOON TOMORROW Referral Needs: NONE Education Needs: NONE IMM/BUSBY given and signed (if applicable): N/A Goal for discharge: DC HOME SAFELY. STATES SHE MAY HAVE TO STAY AN ADDL DAY PER ID/SHEBIB. CM/SW left business card at the bedside with contact information. Name and number was also written on the patients whiteboard. Patient verbalized understanding of discussion. CM will follow-up with ongoing discharge and transition of care needs.
[2018-03-04 18:37] LABS: INR 2.37; PROTHROMBIN TIME 27.7 seconds (11.9-14.5)
[2018-03-04] MEDS: WARFARIN SOD 2 MG TAB PO SCH (18:41)
--- NOTE | 2018-03-04 19:03 | NUR ---
Patient visited in room during nursing rounds. Patient alert and oriented x3. Patient states she feels better. Patient strong to turn in bed and ambulates prn in room with standby assist. Patient with intermittent pain on left flank or lower back. Son at bedside. Will monitor patient closely.
[2018-03-04] MEDS: TRAZODONE HCL 50 MG TAB PO SCH (21:50)
[2018-03-05] VITALS (10 sets, daily range): BP systolic 124–184; BP diastolic 67–79
[2018-03-05] MEDS: HYDROMORPHONE 2MG/ML 2 MG/ML ML IV PRN ×4 (04:30→21:24)
[2018-03-05 05:36] LABS: BASOPHILS # (AUTO) 0.1 (0.0-0.1); BASOPHILS % 0.7 % (0.0-1.0); EOSINOPHILS # (AUTO) 0.5 (0.0-0.4); EOSINOPHILS % 3.2 % (0.0-6.0); HEMATOCRIT 33.6 % (34.2-44.1); HEMOGLOBIN 10.3 g/dL (12.0-16.0); LYMPHOCYTES # (AUTO) 4.1 (1.0-3.2); LYMPHOCYTES % 27.3 % (18.0-39.1); MEAN CORPUSCULAR HGB CONC 30.7 g/dL (31-35); MEAN CORPUSCULAR VOLUME 84.8 fL (81-99); MONOCYTES # (AUTO) 1.3 (0.2-0.8); MONOCYTES % 8.7 % (4.4-11.3); NEUTROPHILS # (AUTO) 8.9 (2.1-6.9); NEUTROPHILS % 59.6 % (38.7-80.0); PLATELET COUNT 655 x10e3/uL (140-360); RED BLOOD COUNT 3.96 x10e6/uL (3.6-5.1)
[2018-03-05 05:42] LABS: INR 2.37; PROTHROMBIN TIME 27.7 seconds (11.9-14.5)
[2018-03-05 05:48] LABS: ANION GAP 14.7 mmol/L (8-16); CALCIUM 9.2 mg/dL (8.4-10.2); CREATININE, SERUM 2.44 mg/dL (0.57-1.11); POTASSIUM 3.7 mmol/L (3.5-5.1)
[2018-03-05] MEDS: HYDRALAZINE HCL 20 MG/ML VIAL IV PRN (06:35)
--- NOTE | 2018-03-05 07:18 | NUR ---
PATIENT IN BED RESTING WITH EYES CLOSED, CPAP IN PLACE, NO RESPIRATORY DISTRESS OBSERVED. BRUISES OBSERVED TO BOTH ARMS. BED IN LOWER POSITION, CALL LIGHT AT REACH.
[2018-03-05] MEDS: ONDANSETRON HCL INJ 2MG/ML 2ML 2 MG/ML VIAL IV PRN ×2 (09:35→16:10)
[2018-03-05] MEDS: CLOPIDOGREL BISULFATE 75 MG TAB PO SCH (09:50)
[2018-03-05] MEDS: AMLODIPINE BESYLATE 5 MG TAB PO SCH (09:50)
[2018-03-05] MEDS: FAMOTIDINE 20 MG/2 ML VIAL IV SCH ×2 (09:50→17:31)
[2018-03-05] MEDS: LIOTHYRONINE SODIUM 5 MCG TAB PO SCH (09:50)
[2018-03-05] MEDS: PANTOPRAZOLE SOD 40 MG TABEC PO SCH (09:50)
[2018-03-05] MEDS: ISOSORBIDE MONONITRATE 30 MG TAB CR PO SCH (09:50)
[2018-03-05] MEDS: OXYBUTYNIN CHLORIDE 5 MG TAB PO SCH (09:50)
[2018-03-05] MEDS: DULOXETINE HCL 30 MG DELAYED RELEASE PO SCH (09:50)
[2018-03-05] MEDS: TERBINAFINE 250 MG TAB PO SCH (09:50)
[2018-03-05] MEDS: BUSPIRONE HCL 5 MG TAB PO SCH ×2 (09:50→17:31)
[2018-03-05] MEDS: ALPRAZOLAM 1 MG TAB PO SCH ×3 (09:51→22:16)
[2018-03-05] MEDS: METOPROLOL SUCCINATE 50 MG TAB XL PO SCH (09:51)
--- NOTE | 2018-03-05 11:22 | NUR ---
PATIENT IN BED RESTING WITH NO RESPIRATORY DISTRESS. C-PAP IN PLACE, FAMILY MEMBER AT BED SIDE, CALL LIGHT AT REACH.
[2018-03-05] MEDS: ERTAPENEM 1GM/NS 100ML 100 ML IV SCH (15:12)
--- NOTE | 2018-03-05 16:17 | NUR ---
PATIENT ASSISTED TO BED SIDE COMMODE AND BACK TO BED. C/O BACK PAIN, PAIN MEDICATION ADMINISTERED ORDERED. FAMILY MEMBER AT BED SIDE. CALL LIGHT AT REACH, WILL CLOSELY MONITOR.
[2018-03-05] MEDS: WARFARIN SOD 2 MG TAB PO SCH (18:11)
--- NOTE | 2018-03-05 19:30 | NUR ---
PT IS RESTING IN BED. NO RESPIRATORY DISTRESS NOTED. BED IN THE LOWEST POSITION, LOCKED, AND CALL LIGHT WITHIN REACH. WILL CONTINUE TO MONITOR.
[2018-03-05] MEDS: TRAZODONE HCL 50 MG TAB PO SCH (22:16)
[2018-03-06] VITALS (7 sets, daily range): BP systolic 127–161; BP diastolic 63–72
[2018-03-06] MEDS: HYDROMORPHONE 2MG/ML 2 MG/ML ML IV PRN ×4 (02:17→17:22)
[2018-03-06] MEDS: ONDANSETRON HCL INJ 2MG/ML 2ML 2 MG/ML VIAL IV PRN (02:17)
[2018-03-06 06:14] LABS: BASOPHILS # (AUTO) 0.1 (0.0-0.1); BASOPHILS % 0.4 % (0.0-1.0); EOSINOPHILS # (AUTO) 0.4 (0.0-0.4); EOSINOPHILS % 2.2 % (0.0-6.0); HEMATOCRIT 32.9 % (34.2-44.1); HEMOGLOBIN 10.3 g/dL (12.0-16.0); LYMPHOCYTES # (AUTO) 3.3 (1.0-3.2); LYMPHOCYTES % 21.3 % (18.0-39.1); MEAN CORPUSCULAR HEMOGLOBIN 26.2 pg (28-32); MEAN CORPUSCULAR HGB CONC 31.3 g/dL (31-35); MEAN CORPUSCULAR VOLUME 83.7 fL (81-99); MONOCYTES # (AUTO) 1.4 (0.2-0.8); NEUTROPHILS # (AUTO) 10.4 (2.1-6.9); NEUTROPHILS % 66.7 % (38.7-80.0); PLATELET COUNT 640 x10e3/uL (140-360); RED BLOOD COUNT 3.93 x10e6/uL (3.6-5.1); RED CELL DISTRIBUTION WIDTH 15.9 % (11.7-14.4)
--- NOTE | 2018-03-06 06:19 | NUR ---
PT IS RESTING IN BED. NO ACUTE EVENT OCCURRED THROUGHOUT THE NIGHT. WILL CONTINUE TO MONITOR.
[2018-03-06 06:26] LABS: INR 2.65; PROTHROMBIN TIME 30.2 seconds (11.9-14.5)
[2018-03-06 06:33] LABS: ANION GAP 12.9 mmol/L (8-16); CALCIUM 9.1 mg/dL (8.4-10.2); CREATININE, SERUM 2.37 mg/dL (0.57-1.11); POTASSIUM 3.9 mmol/L (3.5-5.1)
--- NOTE | 2018-03-06 07:00 | NUR ---
SHIFT REPORT RECEIVED FROM NIGHT RN. PT DENIES NEEDS AT THIS TIME.
[2018-03-06] MEDS: DULOXETINE HCL 30 MG DELAYED RELEASE PO SCH (09:23)
[2018-03-06] MEDS: OXYBUTYNIN CHLORIDE 5 MG TAB PO SCH (09:23)
[2018-03-06] MEDS: BUSPIRONE HCL 5 MG TAB PO SCH ×2 (09:23→17:21)
[2018-03-06] MEDS: ISOSORBIDE MONONITRATE 30 MG TAB CR PO SCH (09:23)
[2018-03-06] MEDS: TERBINAFINE 250 MG TAB PO SCH (09:23)
[2018-03-06] MEDS: FAMOTIDINE 20 MG/2 ML VIAL IV SCH ×2 (09:23→17:21)
[2018-03-06] MEDS: LIOTHYRONINE SODIUM 5 MCG TAB PO SCH (09:23)
[2018-03-06] MEDS: PANTOPRAZOLE SOD 40 MG TABEC PO SCH (09:24)
[2018-03-06] MEDS: METOPROLOL SUCCINATE 50 MG TAB XL PO SCH (09:24)
[2018-03-06] MEDS: AMLODIPINE BESYLATE 10 MG TAB PO SCH (09:24)
[2018-03-06] MEDS: CLOPIDOGREL BISULFATE 75 MG TAB PO SCH (09:24)
[2018-03-06] MEDS: ALPRAZOLAM 1 MG TAB PO SCH ×3 (09:24→20:39)
--- NOTE | 2018-03-06 11:26 | Progress Note ---
DATE: SUBJECTIVE: This patient is admitted for urosepsis and urinary tract infection. Patient is doing better and feeling better. No nausea, vomiting, diarrhea, constipation or chest pain. Patient does have some right arm discomfort, otherwise normal. OBJECTIVE VITAL SIGNS: Temperature is 98.4, blood pressure is 127/65, respirations of 20, and pulse of 73. Oximetry is 92%, she is on 2 liters of oxygen. She also is receiving CPAP treatment because of COPD. GENERAL: Patient is obese, again on CPAP, decreased breath sounds into lower lungs. NECK: No JVD. Supple. CVS: S1 and S2 distant, otherwise normal. ABDOMEN: Soft, nontender. EXTREMITIES: Positive for trace edema. MEDICATIONS: Of note, she is on hydromorphone q.3 hours for pain, trazodone for sleep, and alprazolam for anxiety. She is on anticoagulation with warfarin. For UTI, she is on ertapenem daily. Patient's other medications include duloxetine, clopidogrel, hydralazine, amlodipine, tizanidine, potassium chloride, nitroglycerin, dicyclomine, Bumex, and hydrocodone. MICROBIOLOGY: Urine did grow E coli, sensitive to ertapenem. ASSESSMENT AND PLAN: Urinary tract infection, Escherichia coli. We will continue to monitor the patient. The patient also has morbid obesity with sleep apnea. Continue with oxygen supplementation and also CPAP supplementation. Reflux disease, will continue on GI prophylaxis. She also has anticoagulation. We will continue monitoring her PT/INR, the last one was 2.65. For blood pressure control, metoprolol and also Bumex. Pain control with hydromorphone. Further recommendation per clinical course. Will followup with Dr. Wyatt who is following the patient for continuous UTIs. Also x-ray her right arm, a portable x-ray. Further recommendation per clinical course. We will continue to monitor the patient along with consultants. Job#: [id number] CHENG
--- NOTE | 2018-03-06 11:50 | Diagnostic Imaging Report ---
ELBOW RIGHT COMPLETE - 3 views HISTORY: Pain. UTI. Right wrist pain radiating to the right elbow. Patient and she slept on it wrong. Pain started today. COMPARISON: None available. FINDINGS: Bones: No acute displaced fracture. Osseous alignment is within normal limits. Joints: The joint spaces are well-maintained. Soft tissues: The soft tissues appear unremarkable. IV catheter in the antecubital fossa. IMPRESSION: No acute radiographic abnormality. Signed by: Dr. Jeronimo Jules M.D. on 03/06/2018 11:47 AM
--- NOTE | 2018-03-06 11:51 | Diagnostic Imaging Report ---
WRIST COMPLETE RIGHT - 3 views HISTORY: Pain. Right wrist pain radiating to the right elbow. Think she slept on the wrong. Pain started today. COMPARISON: None available. FINDINGS: Bones: No acute displaced fracture. Osseous alignment is within normal limits. Joints: Moderate to severe degenerative changes first carpometacarpal joint. Mild degenerative changes in the radiocarpal joint. Soft tissues: The soft tissues appear unremarkable. IMPRESSION: 1. Mild degenerative changes in the right radiocarpal joint. 2. Moderate to severe degenerative changes at first carpometacarpal joint. Signed by: Dr. Jeronimo Jules M.D. on 03/06/2018 11:48 AM
[2018-03-06] MEDS: ERTAPENEM 1GM/NS 100ML 100 ML IV SCH (16:12)
[2018-03-06] MEDS: WARFARIN SOD 2 MG TAB PO SCH (17:21)
--- NOTE | 2018-03-06 19:17 | NUR ---
PT IS RESTING IN BED. NO RESPIRATORY DISTRESS NOTED. BED IN THE LOWEST POSITION, LOCKED, AND CALL LIGHT WITHIN REACH. WILL CONTINUE TO MONITOR.
[2018-03-06] MEDS: TRAZODONE HCL 50 MG TAB PO SCH (20:39)
[2018-03-07] VITALS (9 sets, daily range): BP systolic 112–171; BP diastolic 54–79
[2018-03-07] MEDS: HYDROMORPHONE 2MG/ML 2 MG/ML ML IV PRN ×5 (01:32→21:33)
[2018-03-07] MEDS: ONDANSETRON HCL INJ 2MG/ML 2ML 2 MG/ML VIAL IV PRN ×2 (01:32→09:08)
[2018-03-07 06:38] LABS: BASOPHILS # (AUTO) 0.1 (0.0-0.1); BASOPHILS % 0.5 % (0.0-1.0); EOSINOPHILS # (AUTO) 0.4 (0.0-0.4); EOSINOPHILS % 2.7 % (0.0-6.0); HEMATOCRIT 31.6 % (34.2-44.1); HEMOGLOBIN 9.8 g/dL (12.0-16.0); LYMPHOCYTES # (AUTO) 2.8 (1.0-3.2); LYMPHOCYTES % 18.8 % (18.0-39.1); MEAN CORPUSCULAR HEMOGLOBIN 26.5 pg (28-32); MEAN CORPUSCULAR VOLUME 85.4 fL (81-99); MONOCYTES # (AUTO) 1.6 (0.2-0.8); NEUTROPHILS % 66.6 % (38.7-80.0); PLATELET COUNT 660 x10e3/uL (140-360); RED CELL DISTRIBUTION WIDTH 16.2 % (11.7-14.4)
[2018-03-07 06:51] LABS: INR 3.09
[2018-03-07 07:01] LABS: ANION GAP 13.9 mmol/L (8-16); CALCIUM 9.4 mg/dL (8.4-10.2); CREATININE, SERUM 2.36 mg/dL (0.57-1.11); POTASSIUM 3.9 mmol/L (3.5-5.1)
[2018-03-07 07:47] LABS: EOSINOPHILS % (MANUAL) 3 % (0-7); LYMPHOCYTES % (MANUAL) 19 % (19-48); MONOCYTES % (MANUAL) 12 % (3.4-9.0); NEUTROPHILS % (MANUAL) 65 % (40-74)
[2018-03-07 07:48] LABS: PLATELET ESTIMATE MODERATELY INCREASED; PLATELET MORPHOLOGY COMMENT NORMAL; RBC MORPHOLOGY COMMENT NORMAL
[2018-03-07] MEDS: TERBINAFINE 250 MG TAB PO SCH (09:02)
[2018-03-07] MEDS: CLOPIDOGREL BISULFATE 75 MG TAB PO SCH (09:02)
[2018-03-07] MEDS: OXYBUTYNIN CHLORIDE 5 MG TAB PO SCH (09:02)
[2018-03-07] MEDS: AMLODIPINE BESYLATE 10 MG TAB PO SCH (09:02)
[2018-03-07] MEDS: FAMOTIDINE 20 MG/2 ML VIAL IV SCH ×2 (09:02→16:52)
[2018-03-07] MEDS: DULOXETINE HCL 30 MG DELAYED RELEASE PO SCH (09:02)
[2018-03-07] MEDS: BUSPIRONE HCL 5 MG TAB PO SCH ×2 (09:02→16:52)
[2018-03-07] MEDS: ISOSORBIDE MONONITRATE 30 MG TAB CR PO SCH (09:02)
[2018-03-07] MEDS: METOPROLOL SUCCINATE 50 MG TAB XL PO SCH (09:03)
[2018-03-07] MEDS: ALPRAZOLAM 1 MG TAB PO SCH ×3 (09:03→20:32)
[2018-03-07] MEDS: PANTOPRAZOLE SOD 40 MG TABEC PO SCH (09:03)
[2018-03-07] MEDS: LIOTHYRONINE SODIUM 5 MCG TAB PO SCH (09:07)
--- NOTE | 2018-03-07 09:28 | Progress Note ---
DATE: SUBJECTIVE: The patient is currently sleeping on a BiPAP nasal pillow. The patient is comfortable. No complaints. No chest pain. No shortness of breath. OBJECTIVE VITAL SIGNS: Temperature 97.2, blood pressure 161/72, pulse oximetry 97%. HEENT: Normocephalic, atraumatic. Pupils are reactive to light and accommodation. CVS: S1 and S2 distant. Regular rate and rhythm. ABDOMEN: Nontender and nondistended. EXTREMITIES: Trace edema. LABORATORY VALUES: White count is 14,000 down from 15,000 yesterday, hemoglobin is 9.8, and hematocrit of 36.3. Chemistries; sodium of 149, BUN 28, and creatinine of 2.36 which is holding steady. Coags; INR is 3.09. ASSESSMENT 1. Urinary tract infection, E-coli, multidrug resistant. Continue antibiotics. 2. Morbid obesity with obstructive sleep apnea. Continue with CPAP. 3. Reflux esophagitis. Continue GI prophylaxis. 4. Anticoagulation with Coumadin toxicity. Hold Coumadin for now. Continue with checking PT/INR. Pain management with hydromorphone. 5. Right arm elbow x-ray and wrist x-rays. The right wrist shows [id number] degenerative changes in the first metacarpophalangeal joint. She needs to followup with the hand surgeon as an outpatient basis. PLAN: Further recommendation per clinical course. We will continue monitoring the patient. We will hold her warfarin today. Job#: [id number] ROSE
[2018-03-07] MEDS: ERTAPENEM 1GM/NS 100ML 100 ML IV SCH (15:44)
--- NOTE | 2018-03-07 16:11 | Diagnostic Imaging Report ---
EXAM: CT Abdomen and Pelvis WITHOUT contrast INDICATION: ^STONE PROTOCOL. PERSISTENT L FLANK PAINS. ^[id number] ^[id number] COMPARISON: CT abdomen and pelvis 03/03/2018 TECHNIQUE: Abdomen and pelvis were scanned utilizing a multidetector helical scanner from the lung base to the pubic symphysis without administration of IV contrast. Absence of intravenous contrast decreases sensitivity for detection of focal lesions and vascular pathology. Coronal and sagittal reformations were obtained. Routine protocol was performed. IV CONTRAST: None. ORAL CONTRAST: Water RADIATION DOSE: Total DLP: 974.7 mGy*cm Estimated effective dose: (DLP x 0.015 x size factor) mSv COMPLICATIONS: None FINDINGS: LINES and TUBES: None. LOWER THORAX: Unchanged small calcified granuloma in the lingula and left lower lobe. Diffuse coronary artery calcifications. HEPATOBILIARY: No focal hepatic lesions. No biliary ductal dilation. GALLBLADDER: Cholecystectomy. SPLEEN: No splenomegaly. PANCREAS: No focal masses or ductal dilatation. ADRENALS: No adrenal nodules KIDNEYS/URETERS: Right nephrectomy. Mild cortical thinning of the left kidney. Dystrophic 2.5 cm calcification in the medial aspect of the right upper pole is unchanged. Unchanged 2 mm calcified stone in the inferior pole of the left kidney on series 401, image 68. Decreased dilatation of the left ureter measuring now up to 0.8 cm in transverse diameter compared to 1.3 cm. There is also mildly decreased though not resolved diffuse periureteral fat stranding. Residual fat stranding is still present in the mid aspect on coronal image 65. Left perinephric fat stranding remains unchanged. Interval migration of a 2 mm calcified stone within the distal ureter serial 0.8 cm above the ureterovesical junction. This is better seen on coronal image 76. GI TRACT: No abnormal distention, wall thickening, or evidence of bowel obstruction. Appendix is not visualized. PELVIC ORGANS/BLADDER: Unremarkable. LYMPH NODES: Stable few left para-aortic noncalcified mildly enlarged lymph nodes measuring up to 1.2 cm in transverse diameter, likely reactive. VESSELS: Atherosclerotic calcifications of the abdominal aorta without aneurysm. PERITONEUM / RETROPERITONEUM: No free air or fluid. BONES: Osteoporosis with mild superior endplate compression fracture deformities of T12 and L1. SOFT TISSUES: Bulging of the right abdominal wall muscles likely due to laxity. IMPRESSION: 1. Interval migration of a 2 mm calcified stone in the distal left ureter. Improved left ureteral dilatation and surrounding fat stranding. 2. Unchanged perinephric fat stranding and 2 mm nonobstructing left inferior pole renal stone. Signed by: Dr. Celia Jin M.D. on 03/07/2018 4:08 PM
--- NOTE | 2018-03-07 19:15 | NUR ---
PT IS RESTING IN BED. NO RESPIRATORY DISTRESS NOTED. BED IN THE LOWEST POSITION, LOCKED, AND CALL LIGHT WITHIN REACH. WILL CONTINUE TO MONITOR.
[2018-03-07] MEDS: TRAZODONE HCL 50 MG TAB PO SCH (20:32)
[2018-03-08] VITALS (7 sets, daily range): BP systolic 133–179; BP diastolic 63–75
[2018-03-08] MEDS: HYDROMORPHONE 2MG/ML 2 MG/ML ML IV PRN ×4 (05:11→22:00)
[2018-03-08 07:05] LABS: BASOPHILS # (AUTO) 0.1 (0.0-0.1); BASOPHILS % 0.5 % (0.0-1.0); EOSINOPHILS # (AUTO) 0.5 (0.0-0.4); EOSINOPHILS % 3.6 % (0.0-6.0); HEMATOCRIT 32.3 % (34.2-44.1); LYMPHOCYTES # (AUTO) 2.7 (1.0-3.2); LYMPHOCYTES % 20.3 % (18.0-39.1); MEAN CORPUSCULAR HEMOGLOBIN 26.5 pg (28-32); MEAN CORPUSCULAR VOLUME 85.4 fL (81-99); MONOCYTES # (AUTO) 1.6 (0.2-0.8); MONOCYTES % 11.9 % (4.4-11.3); NEUTROPHILS # (AUTO) 8.3 (2.1-6.9); NEUTROPHILS % 63.2 % (38.7-80.0); PLATELET COUNT 625 x10e3/uL (140-360); RED BLOOD COUNT 3.78 x10e6/uL (3.6-5.1); RED CELL DISTRIBUTION WIDTH 16.3 % (11.7-14.4)
[2018-03-08 07:21] LABS: ANION GAP 14.1 mmol/L (8-16); CALCIUM 8.8 mg/dL (8.4-10.2); CREATININE, SERUM 2.86 mg/dL (0.57-1.11); POTASSIUM 4.1 mmol/L (3.5-5.1)
[2018-03-08 07:37] LABS: INR 2.81; PROTHROMBIN TIME 31.6 seconds (11.9-14.5)
[2018-03-08] MEDS: METOPROLOL SUCCINATE 50 MG TAB XL PO SCH (09:16)
[2018-03-08] MEDS: FAMOTIDINE 20 MG/2 ML VIAL IV SCH ×2 (09:16→17:18)
[2018-03-08] MEDS: ONDANSETRON HCL INJ 2MG/ML 2ML 2 MG/ML VIAL IV PRN (09:16)
[2018-03-08] MEDS: CLOPIDOGREL BISULFATE 75 MG TAB PO SCH (09:16)
[2018-03-08] MEDS: ALPRAZOLAM 1 MG TAB PO SCH ×3 (09:16→22:35)
[2018-03-08] MEDS: PANTOPRAZOLE SOD 40 MG TABEC PO SCH (09:16)
[2018-03-08] MEDS: TERBINAFINE 250 MG TAB PO SCH (09:17)
[2018-03-08] MEDS: ISOSORBIDE MONONITRATE 30 MG TAB CR PO SCH (09:17)
[2018-03-08] MEDS: OXYBUTYNIN CHLORIDE 5 MG TAB PO SCH (09:17)
[2018-03-08] MEDS: AMLODIPINE BESYLATE 10 MG TAB PO SCH (09:17)
[2018-03-08] MEDS: LIOTHYRONINE SODIUM 5 MCG TAB PO SCH (09:18)
[2018-03-08] MEDS: DULOXETINE HCL 30 MG DELAYED RELEASE PO SCH (09:19)
[2018-03-08] MEDS: BUSPIRONE HCL 5 MG TAB PO SCH ×2 (09:19→17:18)
[2018-03-08] MEDS: ERTAPENEM 1GM/NS 100ML 100 ML IV SCH (14:24)
--- NOTE | 2018-03-08 19:02 | NUR ---
PT IN BED CONTINUE WITH PAIN MANAGEMENT AND ANTIBIOTIC. NO RESP DISTRESS NOTED.
--- NOTE | 2018-03-08 20:28 | NUR ---
RECEIVED PT IN BED AOX3 .PT RESTING FAMILY AT THE BED SIDE .DENIES PAIN RESPIRATIONS ARE EVEN AND UNLABORED .CALL SEARS WITH IN REACH CONTINUE TO MONITOR
[2018-03-08] MEDS: TRAZODONE HCL 50 MG TAB PO SCH (22:35)
[2018-03-09] VITALS (11 sets, daily range): BP systolic 134–180; BP diastolic 60–87
[2018-03-09 05:34] LABS: BASOPHILS # (AUTO) 0.1 (0.0-0.1); BASOPHILS % 0.4 % (0.0-1.0); EOSINOPHILS # (AUTO) 0.5 (0.0-0.4); EOSINOPHILS % 3.3 % (0.0-6.0); HEMATOCRIT 31.3 % (34.2-44.1); HEMOGLOBIN 9.8 g/dL (12.0-16.0); LYMPHOCYTES # (AUTO) 3.3 (1.0-3.2); LYMPHOCYTES % 20.6 % (18.0-39.1); MEAN CORPUSCULAR HEMOGLOBIN 26.4 pg (28-32); MEAN CORPUSCULAR HGB CONC 31.3 g/dL (31-35); MEAN CORPUSCULAR VOLUME 84.4 fL (81-99); MONOCYTES # (AUTO) 1.7 (0.2-0.8); MONOCYTES % 10.5 % (4.4-11.3); NEUTROPHILS # (AUTO) 10.4 (2.1-6.9); NEUTROPHILS % 64.9 % (38.7-80.0); PLATELET COUNT 660 x10e3/uL (140-360); RED BLOOD COUNT 3.71 x10e6/uL (3.6-5.1); RED CELL DISTRIBUTION WIDTH 16.2 % (11.7-14.4)
[2018-03-09 05:43] LABS: INR 2.23; PROTHROMBIN TIME 26.4 seconds (11.9-14.5)
[2018-03-09 05:46] LABS: ANION GAP 14.6 mmol/L (8-16); CREATININE, SERUM 2.73 mg/dL (0.57-1.11); POTASSIUM 3.6 mmol/L (3.5-5.1)
[2018-03-09] MEDS: HYDROMORPHONE 2MG/ML 2 MG/ML ML IV PRN ×3 (06:54→19:46)
--- NOTE | 2018-03-09 07:15 | NUR ---
PT RECEIVED THIS MORNING FROM OUT GOING NURSE S/P FALL , PER HE LOWERED PT ON FLOOR SHE GOT WEAK GETTING BACK TO BED. PER PT HAS BEEN SLIGHTLY CONFUSED SINCE LAST EVENING SHE SOMETIMES SPEAK INCOHERENTLY. NEURO CHECKS CONTINUES.
--- NOTE | 2018-03-09 07:38 | NUR ---
PT WAS HELPED THE PT TO THE BEDSIDE COMMODE .PT C/O KNEE PAIN .HE MADE THE PT TO SIT ON THE FLOOR . TOLD SHE DID NOT FALL NO INJURY NOTED . PHYSICAL ASSESSMENT AND NEURO CHECK DONE NOTIFIED DR ACOSTA JEWELRY RACKER AND CHARGE NURSE NOTIFIED .REPORT GIVEN TO THE ON COMING NURSE
[2018-03-09] MEDS: BUSPIRONE HCL 5 MG TAB PO SCH ×2 (09:24→16:44)
[2018-03-09] MEDS: LIOTHYRONINE SODIUM 5 MCG TAB PO SCH (09:24)
[2018-03-09] MEDS: DULOXETINE HCL 30 MG DELAYED RELEASE PO SCH (09:24)
[2018-03-09] MEDS: OXYBUTYNIN CHLORIDE 5 MG TAB PO SCH (09:24)
[2018-03-09] MEDS: FAMOTIDINE 20 MG/2 ML VIAL IV SCH ×2 (09:24→16:44)
[2018-03-09] MEDS: TERBINAFINE 250 MG TAB PO SCH (09:25)
[2018-03-09] MEDS: AMLODIPINE BESYLATE 10 MG TAB PO SCH (09:25)
[2018-03-09] MEDS: ISOSORBIDE MONONITRATE 30 MG TAB CR PO SCH (09:25)
[2018-03-09] MEDS: CLOPIDOGREL BISULFATE 75 MG TAB PO SCH (09:26)
[2018-03-09] MEDS: ALPRAZOLAM 1 MG TAB PO SCH ×3 (09:26→21:00)
[2018-03-09] MEDS: METOPROLOL SUCCINATE 50 MG TAB XL PO SCH (09:26)
[2018-03-09] MEDS: PANTOPRAZOLE SOD 40 MG TABEC PO SCH (09:26)
[2018-03-09] MEDS: NYSTATIN 15 GM POWDER UD BTL TOP SCH ×2 (09:27→16:44)
[2018-03-09 10:29] LABS: BILIRUBIN,URINE NEGATIVE (NEGATIVE); CLARITY,URINE SL CLOUDY (CLEAR); COLOR,URINE YELLOW (YELLOW); KETONES,URINE NEGATIVE (NEGATIVE); LEUKOCYTE ESTERASE ,URINE NEGATIVE (NEGATIVE); NITRITE,URINE NEGATIVE (NEGATIVE); PROTEIN,URINE DIPSTICK 3+ (NEGATIVE); URINE UROBILINOGEN 0.2 mg/dL (0.2 - 1)
[2018-03-09 10:52] LABS: RBC,URINE 21-50 /HPF (0-5)
[2018-03-09 10:53] LABS: BACTERIA,URINE FEW /HPF; EPITHELIAL CELLS,URINE FEW /LPF
--- NOTE | 2018-03-09 12:02 | NUR ---
SEEN BY DR. POWELL THIS AM AND ORDERS FOR STRAIGHT CATH FOR UA MICRO AND CULTURES.MD'S ORDER FOLLOWED THROUGH AND SPECIMEN SENT TO LAB. AWAITING RESULTS.
[2018-03-09] MEDS: ERTAPENEM 1GM/NS 100ML 100 ML IV SCH (14:23)
[2018-03-09] MEDS: ONDANSETRON HCL INJ 2MG/ML 2ML 2 MG/ML VIAL IV PRN (14:24)
--- NOTE | 2018-03-09 17:47 | NUR ---
PT IN BED, NO DISTRESS NOTED. NEURO CHECKS WNL ALL SHIFT. URINE FOR MICRO AND CULTURES PENDING.
--- NOTE | 2018-03-09 18:08 | NUR ---
Nutrition Screen Note RD Recommendation for Physician: -Continue renal diet as ordered Plan of Care: RD following, monitoring for tolerance and adequacy Nutrition reason for involvement: LOS Primary Diagnose(s): 1.Urinary tract infection, E-coli, multidrug resistant. 2.Morbid obesity with obstructive sleep apnea 3.Reflux esophagitis PMH: obesity, hypertension, GERD Ht: 61in Wt: 273.37lb BMI: 51.7kg/m2 IBW: 105lb RD Assessment: (03/09) Chart reviewed. Labs and meds reviewed. 62 yo F, who is admitted for UTI. Pt was discussed during rounds. Pt remains confused. Visited pt in the room. on bedside to provide hx as pt was sleeping. Her appetite has been on and off for months. has been assisting with feeding. RN recorded ~75-100% PO intake since admission. No GI complains noted. No chewing or swallowing difficulty. No recent weight loss reported with weight stable at 272lb this year. Will continue to monitor and follow. Current Diet: renal diet Malnutrition Evaluation (03/09/18) The patient does not meet criteria for a specified degree of malnutrition at this time. Will re-evaluate at follow-up as appropriate. Diet Education Needs Assessment: Diet education indicated, pt is not appropriate at this time. Nutrition Care Level: low Signed: Nuria Haney, MS, RD, LD
--- NOTE | 2018-03-09 19:31 | NUR ---
RECEIVED PT IN BED .C/O PAIN FAMILY AT THE BEDSIDE . CALL LIGHT WITH IN REACH.CONTINUE TO MONITOR .
[2018-03-09] MEDS: TRAZODONE HCL 50 MG TAB PO SCH (21:00)
[2018-03-10] VITALS (10 sets, daily range): BP systolic 110–191; BP diastolic 57–86
--- NOTE | 2018-03-10 06:36 | NUR ---
PT RESTED DURING THE NIGHT ,C/O PAIN PT HAD BM FAMILY AT THE BEDSIDE .CALL LIGHT WITH IN REACH .CONTINUE TO MONITOR
--- NOTE | 2018-03-10 07:35 | NUR ---
RECEIVED PATIENT RESTING IN BED. NO ACUTE DISTRESS NOTED. FAMILY AT BEDSIDE. CALL LIGHT WITHIN REACH. BED IN THE LOWEST POSITION.
[2018-03-10 07:47] LABS: BASOPHILS # (AUTO) 0.1 (0.0-0.1); BASOPHILS % 0.3 % (0.0-1.0); EOSINOPHILS # (AUTO) 0.4 (0.0-0.4); EOSINOPHILS % 1.9 % (0.0-6.0); HEMATOCRIT 36.5 % (34.2-44.1); HEMOGLOBIN 11.1 g/dL (12.0-16.0); LYMPHOCYTES # (AUTO) 2.7 (1.0-3.2); MEAN CORPUSCULAR HEMOGLOBIN 25.8 pg (28-32); MEAN CORPUSCULAR HGB CONC 30.4 g/dL (31-35); MEAN CORPUSCULAR VOLUME 84.9 fL (81-99); MONOCYTES # (AUTO) 1.8 (0.2-0.8); MONOCYTES % 9.1 % (4.4-11.3); NEUTROPHILS # (AUTO) 14.2 (2.1-6.9); NEUTROPHILS % 74.2 % (38.7-80.0); PLATELET COUNT 665 x10e3/uL (140-360); RED CELL DISTRIBUTION WIDTH 16.4 % (11.7-14.4)
[2018-03-10 08:00] LABS: INR 1.64; PROTHROMBIN TIME 20.8 seconds (11.9-14.5)
[2018-03-10 08:40] LABS: ANION GAP 16.8 mmol/L (8-16); CALCIUM 9.5 mg/dL (8.4-10.2); CREATININE, SERUM 2.65 mg/dL (0.57-1.11); POTASSIUM 3.8 mmol/L (3.5-5.1)
[2018-03-10] MEDS: FAMOTIDINE 20 MG/2 ML VIAL IV SCH ×2 (09:44→17:09)
[2018-03-10] MEDS: HYDROMORPHONE 2MG/ML 2 MG/ML ML IV PRN ×2 (09:44→14:20)
[2018-03-10] MEDS: BUSPIRONE HCL 5 MG TAB PO SCH ×2 (09:49→17:09)
[2018-03-10] MEDS: DULOXETINE HCL 30 MG DELAYED RELEASE PO SCH (09:49)
[2018-03-10] MEDS: OXYBUTYNIN CHLORIDE 5 MG TAB PO SCH (09:49)
[2018-03-10] MEDS: LIOTHYRONINE SODIUM 5 MCG TAB PO SCH (09:49)
[2018-03-10] MEDS: PANTOPRAZOLE SOD 40 MG TABEC PO SCH (09:50)
[2018-03-10] MEDS: ALPRAZOLAM 1 MG TAB PO SCH ×3 (09:50→20:23)
[2018-03-10] MEDS: METOPROLOL SUCCINATE 50 MG TAB XL PO SCH (09:50)
[2018-03-10] MEDS: AMLODIPINE BESYLATE 10 MG TAB PO SCH (09:50)
[2018-03-10] MEDS: CLOPIDOGREL BISULFATE 75 MG TAB PO SCH (09:50)
[2018-03-10] MEDS: NYSTATIN 15 GM POWDER UD BTL TOP SCH ×2 (09:50→17:09)
[2018-03-10] MEDS: TERBINAFINE 250 MG TAB PO SCH (09:50)
[2018-03-10] MEDS: ISOSORBIDE MONONITRATE 30 MG TAB CR PO SCH (09:50)
[2018-03-10] MEDS: ACETAMINOPHEN 325 MG TAB PO PRN (12:16)
[2018-03-10] MEDS: HYDRALAZINE HCL 20 MG/ML VIAL IV PRN (12:16)
--- NOTE | 2018-03-10 12:16 | Diagnostic Imaging Report ---
EXAM: XR CHEST 2 VIEWS DATE: 03/10/2018 9:20 AM INDICATION: Sepsis COMPARISON: None FINDINGS: Lines and Tubes: None Heart and Mediastinum: Enlarged, possibly due to technique/low lung volumes. Lungs and Pleura: Significantly limited due to underpenetration, low lung volumes, and body habitus. Lateral views nondiagnostic. Patchy basilar opacities. Bones and Soft Tissues: No acute findings. IMPRESSION: 1. Very limited study. Patchy basilar opacities could represent atelectasis, edema, or pneumonia. Signed by: Dr. Karl Encarnacion MD on 03/10/2018 12:13 PM
[2018-03-10] MEDS: ERTAPENEM 1GM/NS 100ML 100 ML IV SCH (14:20)
--- NOTE | 2018-03-10 15:03 | NUR ---
NOTICED COUMADIN 4MG PO AT 1800 ON HOLD, NOTE STATED RESUME WHEN INR IS BELOW 2.5. NOTIFIED DR. ACOSTA OF TODAY'S INR OF 1.64, RESUME COUMADIN ORDERED.
[2018-03-10] MEDS: WARFARIN SOD 2 MG TAB PO SCH (17:09)
--- NOTE | 2018-03-10 19:11 | NUR ---
REPORT GIVEN TO ONCOMING NURSE. PATIENT IS RESTING IN BED. NO ACUTE DISTRESS NOTED. CALL LIGHT WITHIN REACH. BED IN THE LOWEST POSITION.
--- NOTE | 2018-03-10 19:15 | NUR ---
Received pt in bed resting. No s/s of resp distress. Has CPAP to nostrils. Call light within reach, bed locked in lowest position, and bed alarm on.
[2018-03-10] MEDS: TRAZODONE HCL 50 MG TAB PO SCH (20:23)
[2018-03-11] VITALS (8 sets, daily range): BP systolic 114–137; BP diastolic 56–67
[2018-03-11] MEDS: ONDANSETRON HCL INJ 2MG/ML 2ML 2 MG/ML VIAL IV PRN ×3 (05:20→18:56)
[2018-03-11] MEDS: HYDROMORPHONE 2MG/ML 2 MG/ML ML IV PRN ×4 (05:38→18:56)
[2018-03-11 05:40] LABS: BASOPHILS # (AUTO) 0.1 (0.0-0.1); BASOPHILS % 0.4 % (0.0-1.0); EOSINOPHILS # (AUTO) 0.4 (0.0-0.4); EOSINOPHILS % 2.9 % (0.0-6.0); HEMATOCRIT 32.7 % (34.2-44.1); HEMOGLOBIN 10.2 g/dL (12.0-16.0); LYMPHOCYTES # (AUTO) 2.9 (1.0-3.2); LYMPHOCYTES % 19.7 % (18.0-39.1); MEAN CORPUSCULAR HEMOGLOBIN 26.4 pg (28-32); MEAN CORPUSCULAR HGB CONC 31.2 g/dL (31-35); MEAN CORPUSCULAR VOLUME 84.7 fL (81-99); MONOCYTES # (AUTO) 1.3 (0.2-0.8); MONOCYTES % 9.2 % (4.4-11.3); NEUTROPHILS # (AUTO) 9.8 (2.1-6.9); NEUTROPHILS % 67.4 % (38.7-80.0); PLATELET COUNT 695 x10e3/uL (140-360); RED BLOOD COUNT 3.86 x10e6/uL (3.6-5.1); RED CELL DISTRIBUTION WIDTH 16.3 % (11.7-14.4)
[2018-03-11 05:57] LABS: INR 1.49; PROTHROMBIN TIME 19.3 seconds (11.9-14.5)
[2018-03-11 06:01] LABS: ANION GAP 15.6 mmol/L (8-16); CALCIUM 9.1 mg/dL (8.4-10.2); CREATININE, SERUM 2.89 mg/dL (0.57-1.11); POTASSIUM 3.6 mmol/L (3.5-5.1)
--- NOTE | 2018-03-11 07:15 | NUR ---
RECEIVED PATIENT RESTING IN BED. NO ACUTE DISTRESS NOTED. FAMILY MEMBER AT BEDSIDE. CALL LIGHT WITHIN REACH. BED IN THE LOWEST POSITION.
[2018-03-11] MEDS: FAMOTIDINE 20 MG/2 ML VIAL IV SCH ×2 (08:58→17:11)
[2018-03-11] MEDS: DULOXETINE HCL 30 MG DELAYED RELEASE PO SCH (09:04)
[2018-03-11] MEDS: BUSPIRONE HCL 5 MG TAB PO SCH ×2 (09:04→17:11)
[2018-03-11] MEDS: OXYBUTYNIN CHLORIDE 5 MG TAB PO SCH (09:04)
[2018-03-11] MEDS: LIOTHYRONINE SODIUM 5 MCG TAB PO SCH (09:04)
[2018-03-11] MEDS: CLOPIDOGREL BISULFATE 75 MG TAB PO SCH (09:05)
[2018-03-11] MEDS: METOPROLOL SUCCINATE 50 MG TAB XL PO SCH (09:05)
[2018-03-11] MEDS: AMLODIPINE BESYLATE 10 MG TAB PO SCH (09:05)
[2018-03-11] MEDS: ISOSORBIDE MONONITRATE 30 MG TAB CR PO SCH (09:05)
[2018-03-11] MEDS: PANTOPRAZOLE SOD 40 MG TABEC PO SCH (09:05)
[2018-03-11] MEDS: NYSTATIN 15 GM POWDER UD BTL TOP SCH ×2 (09:06→17:13)
[2018-03-11] MEDS: TERBINAFINE 250 MG TAB PO SCH (09:06)
--- NOTE | 2018-03-11 14:45 | NUR ---
JIMMIE GALLEGOS WITH DR. LISSA CAPONE TO RENEW INVANZ ORDERED.
[2018-03-11] MEDS: ERTAPENEM 1GM/NS 100ML 100 ML IV SCH (15:37)
[2018-03-11] MEDS: WARFARIN SOD 2 MG TAB PO SCH (17:11)
--- NOTE | 2018-03-11 17:35 | NUR ---
Received pt in bed with family at bedside. No s/s of resp distress. Denies pain at this time. Call light within reach, bed locked in lowest position, and bed alarm on.
--- NOTE | 2018-03-11 19:16 | NUR ---
REPORT GIVEN TO ONCOMING NURSE. PATIENT IS RESTING IN BED. NO ACUTE DISTRESS NOTED. FAMILY MEMBER AT BEDSIDE. CALL LIGHT WITHIN REACH. BED IN THE LOWEST POSITION.
[2018-03-11] MEDS: TRAZODONE HCL 50 MG TAB PO SCH (20:03)
[2018-03-12] VITALS (7 sets, daily range): BP systolic 106–162; BP diastolic 61–74
[2018-03-12] MEDS: ONDANSETRON HCL INJ 2MG/ML 2ML 2 MG/ML VIAL IV PRN ×4 (00:47→12:37)
[2018-03-12] MEDS: HYDROMORPHONE 2MG/ML 2 MG/ML ML IV PRN ×5 (00:47→22:10)
--- NOTE | 2018-03-12 06:12 | NUR ---
OK TO RENEW XANAX ORDER 1MG TID SCHEDULED. PER DR. ACOSTA.
--- NOTE | 2018-03-12 07:25 | NUR ---
RECEIVED PATIENT RESTING IN BED. NO ACUTE DISTRESS NOTED. CALL LIGHT WITHIN REACH. BED IN THE LOWEST POSITION.
[2018-03-12] MEDS: FAMOTIDINE 20 MG/2 ML VIAL IV SCH ×2 (08:37→17:20)
[2018-03-12] MEDS: BUSPIRONE HCL 5 MG TAB PO SCH ×2 (08:37→17:40)
[2018-03-12] MEDS: NYSTATIN 15 GM POWDER UD BTL TOP SCH ×2 (08:38→17:41)
[2018-03-12] MEDS: ALPRAZOLAM 1 MG TAB PO SCH ×3 (08:38→21:13)
[2018-03-12] MEDS: CLOPIDOGREL BISULFATE 75 MG TAB PO SCH (09:00)
[2018-03-12] MEDS ORDERED: BELLADONNA/OPIUM 30 MG SUPP RC ONE (10:55)
[2018-03-12] MEDS ORDERED: IOPAMIDOL 610MG/1ML 300 MG/ML VIAL IV ONE ×2 (10:55→13:51)
--- NOTE | 2018-03-12 13:36 | NUR ---
PATIENT OFF UNIT FOR PROCEDURE.
[2018-03-12] MEDS ORDERED: KETAMINE HCL INJ 50 MG/ML 10 ML VIAL ONE (15:26)
[2018-03-12] MEDS ORDERED: MEROPENEM 1GM 100 ML IV ONE (15:30)
[2018-03-12] MEDS ORDERED: PHENAZOPYRIDINE HCL 100 MG TAB PO ONE (16:30)
[2018-03-12] MEDS ORDERED: ONDANSETRON HCL INJ 2MG/ML 2ML 2 MG/ML VIAL ONE (16:36)
[2018-03-12] MEDS: WARFARIN SOD 2 MG TAB PO SCH (17:00)
--- NOTE | 2018-03-12 17:00 | NUR ---
PATIENT BACK TO THE UNIT AT THIS TIME. SHE IS IN STABLE CONDITION.
[2018-03-12] MEDS: ERTAPENEM 1GM/NS 100ML 100 ML IV SCH (17:31)
[2018-03-12] MEDS: DULOXETINE HCL 30 MG DELAYED RELEASE PO SCH (17:37)
[2018-03-12] MEDS: LIOTHYRONINE SODIUM 5 MCG TAB PO SCH (17:37)
[2018-03-12] MEDS: AMLODIPINE BESYLATE 10 MG TAB PO SCH (17:38)
[2018-03-12] MEDS: ISOSORBIDE MONONITRATE 30 MG TAB CR PO SCH (17:38)
[2018-03-12] MEDS: OXYBUTYNIN CHLORIDE 5 MG TAB PO SCH (17:38)
[2018-03-12] MEDS: METOPROLOL SUCCINATE 50 MG TAB XL PO SCH (17:39)
[2018-03-12] MEDS: PANTOPRAZOLE SOD 40 MG TABEC PO SCH (17:39)
[2018-03-12] MEDS: PHENAZOPYRIDINE HCL 100 MG TAB PO SCH (17:58)
[2018-03-12] MEDS ORDERED: DESFLURANE 240 ML BTL INH ONE (17:58)
--- NOTE | 2018-03-12 19:20 | NUR ---
Completed bedside rounds with morning nurse. Pt lying in 45 degrees. Alert to name. Pt c/o constipation, will f/u with assessment and medications. No acute distress noted. Call pedersen within reach. Addendum: 03/13/18 at 0057 by Minna Christine RN error no constipation
--- NOTE | 2018-03-12 19:55 | NUR ---
REPORT GIVEN TO ONCOMING NURSE. WALKING ROUNDS DONE. PATIENT IS RESTING IN BED. NO ACUTE DISTRESS NOTED. CALL LIGHT WITHIN REACH. BED IN THE LOWEST POSITION.
--- NOTE | 2018-03-12 20:43 | NUR ---
Spoke with Dr. Blood regarding Pt c/o constipation and assessment of large hard stool in rectum. Dr. Blood ordered mineral oil Fleet enema x1, labs BMP and CBC in am. Addendum: 03/13/18 at 0056 by Minna Christine RN error
[2018-03-12] MEDS: TRAZODONE HCL 50 MG TAB PO SCH (21:43)
[2018-03-13] VITALS (9 sets, daily range): BP systolic 119–155; BP diastolic 57–76
[2018-03-13 07:19] LABS: BASOPHILS # (AUTO) 0.1 (0.0-0.1); BASOPHILS % 0.5 % (0.0-1.0); EOSINOPHILS # (AUTO) 0.5 (0.0-0.4); EOSINOPHILS % 3.5 % (0.0-6.0); HEMATOCRIT 33.2 % (34.2-44.1); HEMOGLOBIN 10.4 g/dL (12.0-16.0); LYMPHOCYTES # (AUTO) 3.1 (1.0-3.2); LYMPHOCYTES % 24.4 % (18.0-39.1); MEAN CORPUSCULAR HEMOGLOBIN 26.7 pg (28-32); MEAN CORPUSCULAR HGB CONC 31.3 g/dL (31-35); MEAN CORPUSCULAR VOLUME 85.3 fL (81-99); MONOCYTES # (AUTO) 1.4 (0.2-0.8); NEUTROPHILS # (AUTO) 7.8 (2.1-6.9); NEUTROPHILS % 60.2 % (38.7-80.0); PLATELET COUNT 729 x10e3/uL (140-360); RED BLOOD COUNT 3.89 x10e6/uL (3.6-5.1); RED CELL DISTRIBUTION WIDTH 16.5 % (11.7-14.4)
[2018-03-13 07:36] LABS: ANION GAP 14.8 mmol/L (8-16); CALCIUM 9.3 mg/dL (8.4-10.2); CREATININE, SERUM 2.79 mg/dL (0.57-1.11); POTASSIUM 3.8 mmol/L (3.5-5.1)
[2018-03-13] MEDS: OXYBUTYNIN CHLORIDE 5 MG TAB PO SCH (08:27)
[2018-03-13] MEDS: FAMOTIDINE 20 MG/2 ML VIAL IV SCH ×2 (08:27→17:55)
[2018-03-13] MEDS: DULOXETINE HCL 30 MG DELAYED RELEASE PO SCH (08:27)
[2018-03-13] MEDS: LIOTHYRONINE SODIUM 5 MCG TAB PO SCH (08:27)
[2018-03-13] MEDS: PANTOPRAZOLE SOD 40 MG TABEC PO SCH (08:27)
[2018-03-13] MEDS: METOPROLOL SUCCINATE 50 MG TAB XL PO SCH (08:27)
[2018-03-13] MEDS: ALPRAZOLAM 1 MG TAB PO SCH ×3 (08:27→21:27)
[2018-03-13] MEDS: AMLODIPINE BESYLATE 10 MG TAB PO SCH (08:27)
[2018-03-13] MEDS: ISOSORBIDE MONONITRATE 30 MG TAB CR PO SCH (08:27)
[2018-03-13] MEDS: CLOPIDOGREL BISULFATE 75 MG TAB PO SCH (08:27)
[2018-03-13] MEDS: BUSPIRONE HCL 5 MG TAB PO SCH ×2 (08:27→17:55)
--- NOTE | 2018-03-13 08:46 | Progress Note ---
DATE: SUBJECTIVE: Patient is here status post renal stent for renal stone. Patient also is here for urinary tract infection. Currently, the patient is still having some pain, moderate in intensity. She is on CPAP for her sleep apnea. Sleeping comfortably, has not moved out of bed for the last 2 weeks. Patient has been started on Invanz on the , currently continue with the IV antibiotics. OBJECTIVE GENERAL: Patient is alert and oriented x3. VITAL SIGNS: Temperature is 96.8, blood pressure is 125/59, pulse is 62, respirations 16, pulse oximetry 95%. HEENT: Normocephalic, atraumatic. Morbidly obese. CVS: Distant heart sounds. S1, S2 normal. Regular rhythm. LUNGS: Decreased air entry in all lung woods. ABDOMEN: Nontender, nondistended. EXTREMITIES: No clubbing, no cyanosis. Possible trace edema. LABORATORY DATA: Microbiology from March 03, 2018 shows E. coli. Again, patient is on ertapenem and will continue with that. Patient has had a blood work done today. White count is 12,000, hemoglobin of 15.4, hematocrit of 33.2. Chemistries are pending. ASSESSMENT 1. Urinary tract infection, Escherichia coli. We will continue patient on Invanz. 2. Patient also has acute kidney injury, cannot recommend PICC line. Patient needs 14 days of Invanz according to renal. 3. Leukocytosis. We will continue to monitor the patient status post stent. 4. Hypertension. 5. Obesity. 6. Debility. PLAN 1. To continue the patient on IV antibiotics. 2. For acute kidney injury, follow up with labs. 3. Patient will need physical therapy, has not been out of bed. We will order a PT eval. Probably needs SNF for the continuation of IV antibiotics. Further recommendations per clinical course. We will continue to monitor the patient along with consultants. Job#: [id number] SULEMAN
[2018-03-13] MEDS: PHENAZOPYRIDINE HCL 100 MG TAB PO SCH ×3 (09:00→17:57)
[2018-03-13] MEDS: NYSTATIN 15 GM POWDER UD BTL TOP SCH ×2 (09:03→17:56)
[2018-03-13] MEDS: ONDANSETRON HCL INJ 2MG/ML 2ML 2 MG/ML VIAL IV PRN ×3 (09:05→20:27)
[2018-03-13] MEDS: HYDROMORPHONE 2MG/ML 2 MG/ML ML IV PRN ×3 (09:05→21:23)
--- NOTE | 2018-03-13 13:25 | NUR ---
SPOKE WITH PT ABOUT REFERRAL TO SNF, EDUCATED ABOUT THE DIFFERENT LEVELS OF CARE THE THE APPROPRIATE REFERRAL LEVELS. SHE STATES THAT SHE MISSED THANKSGIVING AT HOME AND HAS A NEW GRANDBABY THAT SHE WANTS TO BE HOME TO SEE. SHE WANTS TO SPEAK WITH HER FAMILY AND WORK WITH THERAPY AND GO HOME WITH HOME HEALTH. GAVE HER THE FACILITIES IN NETWORK WITH HER INSURANCE AND SHE STATES SHE WILL MAKE A DECISION AFTER SPEAKING WITH HER FAMILY.
[2018-03-13] MEDS: ERTAPENEM 1GM/NS 100ML 100 ML IV SCH (15:18)
[2018-03-13] MEDS: WARFARIN SOD 2 MG TAB PO SCH (17:56)
--- NOTE | 2018-03-13 19:03 | NUR ---
Patient visited in room during nursing rounds. Patient alert and oriented x3. Patient wears CPAP (nasal mask) especially at night. Patient is obese and encouraged to call for assistance prn. Currently on bedrest. Patient experienced frequent left knee and lower back pain. Patient to be medicated accordingly.
[2018-03-13] MEDS: TRAZODONE HCL 50 MG TAB PO SCH (21:27)
[2018-03-13] MEDS: ACETAMINOPHEN 325 MG TAB PO PRN (21:27)
[2018-03-14] VITALS (7 sets, daily range): BP systolic 102–160; BP diastolic 56–72
[2018-03-14] MEDS ORDERED: Repatha SC (03:02)
[2018-03-14] MEDS: HYDROMORPHONE 2MG/ML 2 MG/ML ML IV PRN ×5 (05:00→21:49)
[2018-03-14] MEDS: ONDANSETRON HCL INJ 2MG/ML 2ML 2 MG/ML VIAL IV PRN ×3 (05:00→21:49)
[2018-03-14 06:49] LABS: INR 1.9; PROTHROMBIN TIME 23.3 seconds (11.9-14.5)
[2018-03-14] MEDS: DULOXETINE HCL 30 MG DELAYED RELEASE PO SCH (08:43)
[2018-03-14] MEDS: LIOTHYRONINE SODIUM 5 MCG TAB PO SCH (08:43)
[2018-03-14] MEDS: BUSPIRONE HCL 5 MG TAB PO SCH ×2 (08:43→17:07)
--- NOTE | 2018-03-14 08:43 | Progress Note ---
DATE: SUBJECTIVE: Patient is here for status post renal stone removal and stent. Patient is also here with respiratory failure and urinary tract infection. Currently, the patient is on CPAP, comfortable. Pain is controlled and patient has been on Invanz for the last 10 days. OBJECTIVE VITAL SIGNS: Temperature is 98.6, T-max was 100.2 on March 13, 2018 on 2124. Patient's pulse is 71, respirations of 18, blood pressure is 160/72, pulse oximetry 97%. HEENT: Normocephalic, atraumatic. Patient is on CPAP. CVS: S1, S2 distant. Regular rate and rhythm. ABDOMEN: Nontender, nondistended. EXTREMITIES: No clubbing. Positive for trace edema. LABORATORY VALUES: Yesterday's white count was 12.85 and today, we have not yet done it. Chemistries from yesterday show BUN of 30 and creatinine of 2.79, which has been stable. ASSESSMENT 1. Urinary tract infection, Escherichia coli. We will continue on Invanz. 2. Acute kidney injury. Patient is status post stent. We will continue with that. 3. Leukocytosis. Continue monitoring it. 4. Hypertension. Continue CV medications. 5. Obesity. We will continue with diet control. 6. Debility. Will need physical therapy and home health on discharge. We will continue monitoring the patient. Possible discharge in 3 to 4 days after Invanz is done. Job#: [id number] PKU
[2018-03-14] MEDS: OXYBUTYNIN CHLORIDE 5 MG TAB PO SCH (08:44)
[2018-03-14] MEDS: AMLODIPINE BESYLATE 10 MG TAB PO SCH (08:45)
[2018-03-14] MEDS: PHENAZOPYRIDINE HCL 100 MG TAB PO SCH ×3 (08:45→17:07)
[2018-03-14] MEDS: ISOSORBIDE MONONITRATE 30 MG TAB CR PO SCH (08:45)
[2018-03-14] MEDS: PANTOPRAZOLE SOD 40 MG TABEC PO SCH (08:45)
[2018-03-14] MEDS: CLOPIDOGREL BISULFATE 75 MG TAB PO SCH (08:45)
[2018-03-14] MEDS: NYSTATIN 15 GM POWDER UD BTL TOP SCH ×2 (08:46→17:07)
[2018-03-14] MEDS: FAMOTIDINE 20 MG/2 ML VIAL IV SCH ×2 (08:46→17:07)
[2018-03-14] MEDS: METOPROLOL SUCCINATE 50 MG TAB XL PO SCH (08:46)
[2018-03-14] MEDS: ALPRAZOLAM 1 MG TAB PO SCH ×3 (08:46→20:53)
--- NOTE | 2018-03-14 10:35 | NUR ---
Met with patient regarding order for home health. Yosef CELESTIN AOS present starting her IV. Explained to pt the order for long term and PT/OT. She stated the ID physician told her she will staying 2-3 more days to complete IV antibiotics, and then can go home. She stated she does not want home health, and she can continue doing her PT exercises at home that she has been taught here. Informed pt to please have call her case managers if she changes her mind before she is discharged. Informed her if she gets home and changes her mind, she can contact her PCP for him to order it. She verbalized understanding of all. DC plan is to return home in 2-3 days when IV antibiotics complete. Denies any needs.
[2018-03-14] MEDS: ERTAPENEM 1GM/NS 100ML 100 ML IV SCH (14:35)
[2018-03-14] MEDS ORDERED: REPATHA SC SCH (15:00)
[2018-03-14] MEDS ORDERED: REPATHA 140 MG SC SCH (15:45)
[2018-03-14] MEDS: ACETAMINOPHEN 325 MG TAB PO PRN (15:49)
[2018-03-14] MEDS: WARFARIN SOD 2 MG TAB PO SCH (17:07)
--- NOTE | 2018-03-14 20:06 | NUR ---
RECEIVED PT IN BED AOX3 HELPED THE PT WIT BEDPAN,RESPIRATIONS ARE EVEN AND UNLABORED .DENIES PAIN FAMILY AT THE BEDSIDE .CALL LIGHT WITH IN REACH .CONTINUE TO MONITOR
[2018-03-14] MEDS: TRAZODONE HCL 50 MG TAB PO SCH (21:43)
[2018-03-15] VITALS (7 sets, daily range): BP systolic 101–150; BP diastolic 59–70
--- NOTE | 2018-03-15 05:53 | NUR ---
PT RESTING .C/O PAIN ONETIME DURING THE SHIFT .GIVEN ORDERED PAIN MEDICATION .FAMILY AT THE BEDSIDE .CALL LIGHT WITH IN REACH .CONTINUE TO MONITOR.
[2018-03-15 05:57] LABS: BASOPHILS # (AUTO) 0.1 (0.0-0.1); BASOPHILS % 0.3 % (0.0-1.0); EOSINOPHILS # (AUTO) 0.6 (0.0-0.4); EOSINOPHILS % 2.8 % (0.0-6.0); HEMATOCRIT 31.2 % (34.2-44.1); HEMOGLOBIN 9.8 g/dL (12.0-16.0); LYMPHOCYTES % 18.3 % (18.0-39.1); MEAN CORPUSCULAR HGB CONC 31.4 g/dL (31-35); MONOCYTES # (AUTO) 2.4 (0.2-0.8); MONOCYTES % 11.2 % (4.4-11.3); NEUTROPHILS # (AUTO) 14.5 (2.1-6.9); NEUTROPHILS % 66.7 % (38.7-80.0); PLATELET COUNT 618 x10e3/uL (140-360); RED BLOOD COUNT 3.63 x10e6/uL (3.6-5.1); RED CELL DISTRIBUTION WIDTH 16.2 % (11.7-14.4)
[2018-03-15 06:16] LABS: ANION GAP 14.5 mmol/L (8-16); CALCIUM 8.8 mg/dL (8.4-10.2); CREATININE, SERUM 2.8 mg/dL (0.57-1.11); POTASSIUM 3.5 mmol/L (3.5-5.1)
[2018-03-15] MEDS: ONDANSETRON HCL INJ 2MG/ML 2ML 2 MG/ML VIAL IV PRN (06:21)
[2018-03-15] MEDS: HYDROMORPHONE 2MG/ML 2 MG/ML ML IV PRN ×2 (07:23→21:26)
--- NOTE | 2018-03-15 07:59 | Progress Note ---
DATE: Patient is alert and oriented times 3. No complaints. Slept comfortably with BiPAP. OBJECTIVE VITAL SIGNS: Temperature is 99.1, blood pressure is 145/63, pulse of 68. HEENT: Normocephalic and atraumatic. Pupils are reactive to light and accommodation. CV: S1 and S2 distant. Regular rate and rhythm. ABDOMEN: Nontender and nondistended. EXTREMITIES: No clubbing. Trace edema. ASSESSMENT 1. Urinary tract infection, Escherichia coli: Continue on Invanz. The patient needs 3 more days of it. 2. Acute kidney injury: Status post stent for nephrolithiasis. 3. Leukocytosis: Continue monitoring. 4. Hypertension: Continue cardiovascular medications. 5. Obesity: Will continue monitoring. 6. Debility: Will need SNF and/or physical therapy with home health on discharge. Possible discharge in 3-4 days after Invanz is done. Job#: [id number] ROBERTO
--- NOTE | 2018-03-15 08:00 | Progress Note ---
DATE: ADDENDUM Patient's laboratory values did show increase in white count of 21,000 with a left shift again. The patient is on Invanz. ID has been consulted. Will go ahead and do a chest x-ray and order another blood culture. The patient will be kept inpatient. Patient's other laboratory values today is BUN and creatinine is 32 and 2.8, which has been maintained. Will discuss with ID with elevated white count and possible change of antibiotics and/or add on antibiotics. Job#: [id number] ROBERTO
--- NOTE | 2018-03-15 09:05 | Diagnostic Imaging Report ---
ADDENDUM #1 ADDENDUM: Dose modulation, iterative reconstruction, and/or weight based adjustment of the mA/kV was utilized to reduce the radiation dose to as low as reasonably achievable. Signed by: Dr. Carlie Weiss MD on 03/24/2018 5:25 PM ORIGINAL REPORT EXAM: CT Abdomen and Pelvis WITHOUT contrast INDICATION: Leukocytosis. COMPARISON: CT abdomen and pelvis 03/07/18. TECHNIQUE: Abdomen and pelvis were scanned utilizing a multidetector helical scanner from the lung base to the pubic symphysis without administration of IV contrast. Absence of intravenous contrast decreases sensitivity for detection of focal lesions and vascular pathology. Coronal and sagittal reformations were obtained. Routine protocol was performed. IV CONTRAST: None. ORAL CONTRAST: Water RADIATION DOSE: Total DLP: 846.9 mGy*cm COMPLICATIONS: None FINDINGS: LINES and TUBES: None. LOWER THORAX: Unchanged calcified granuloma in the left lower lobe. Coronary atherosclerotic calcifications. Patchy opacities in the lung bases, right greater than left, likely atelectasis. HEPATOBILIARY: No focal hepatic lesions. No biliary ductal dilation. Status post cholecystectomy. SPLEEN: No splenomegaly. PANCREAS: No focal masses or ductal dilatation. ADRENALS: No adrenal nodules KIDNEYS/URETERS: Interval removal of 2 mm obstructive left distal ureteral stone and placement of left internal ureteral stent with proximal pigtail in the renal pelvis and distal pigtail in the bladder. Resolution of left sided hydroureter. Unchanged 2 mm nonobstructive left inferior pole stone. Residual mild left perinephric stranding. Small amount of air in the left renal collecting system, likely from recent intervention. Status post right nephrectomy. Dystrophic 2.5 cm calcification in the medial aspect of the left upper pole is unchanged. No evidence of hydronephrosis. GI TRACT: No abnormal distention, wall thickening, or evidence of bowel obstruction. Appendix is not visualized. PELVIC ORGANS/BLADDER: Air within the bladder likely reflects recent ureteral intervention. LYMPH NODES: Stable few left para-aortic noncalcified mildly enlarged lymph nodes measuring up to 1.2 cm in transverse diameter, likely reactive. VESSELS: Atherosclerotic calcifications of the abdominal aorta and branch vessels. PERITONEUM / RETROPERITONEUM: No free air or fluid. BONES: Osteoporosis with mild superior endplate compression deformities of T12 and L1, unchanged. IMPRESSION: Status post interval placement of left internal double J ureteral stent with removal of distal ureteral stone. No evidence of hydronephrosis. Residual mild left perinephric stranding. Status post right nephrectomy. Signed by: Dr. Carlie Weiss MD on 03/15/2018 9:01 AM
[2018-03-15 09:11] LABS: EOSINOPHILS % (MANUAL) 6 % (0-7); LYMPHOCYTES % (MANUAL) 16 % (19-48); MONOCYTES % (MANUAL) 13 % (3.4-9.0); NEUTROPHILS % (MANUAL) 65 % (40-74)
[2018-03-15 09:12] LABS: ANISOCYTOSIS SLIGHT; HYPOCHROMASIA MODERATE; PLATELET ESTIMATE SLIGHTLY INCREASED; PLATELET MORPHOLOGY COMMENT NORMAL; RBC MORPHOLOGY COMMENT NORMAL
--- NOTE | 2018-03-15 10:00 | NUR ---
Paged Dr. Wyatt at 0710 to report elevated WBC count. has low grade temp of 99.4. and waiting for call back. Dr. Peters was here at 0800 and made aware of elevated WBC and received order for CT of pelvis and abdomen without contrast. Repaged Dr. Wyatt at 0900 and have not received call back. Dr. Wyatt PA here to see pt and made aware of elevated WBC and received order to stop antibiotic and recheck CBC in am.
[2018-03-15] MEDS: BUSPIRONE HCL 5 MG TAB PO SCH ×2 (10:01→17:16)
[2018-03-15] MEDS: FAMOTIDINE 20 MG/2 ML VIAL IV SCH ×2 (10:01→17:15)
[2018-03-15] MEDS: DULOXETINE HCL 30 MG DELAYED RELEASE PO SCH (10:02)
[2018-03-15] MEDS: ISOSORBIDE MONONITRATE 30 MG TAB CR PO SCH (10:03)
[2018-03-15] MEDS: OXYBUTYNIN CHLORIDE 5 MG TAB PO SCH (10:03)
[2018-03-15] MEDS: AMLODIPINE BESYLATE 10 MG TAB PO SCH (10:03)
[2018-03-15] MEDS: LIOTHYRONINE SODIUM 5 MCG TAB PO SCH (10:03)
[2018-03-15] MEDS: CLOPIDOGREL BISULFATE 75 MG TAB PO SCH (10:04)
[2018-03-15] MEDS: PANTOPRAZOLE SOD 40 MG TABEC PO SCH (10:04)
[2018-03-15] MEDS: NYSTATIN 15 GM POWDER UD BTL TOP SCH ×2 (10:05→17:16)
[2018-03-15] MEDS: METOPROLOL SUCCINATE 50 MG TAB XL PO SCH (10:05)
[2018-03-15] MEDS: ALPRAZOLAM 1 MG TAB PO SCH ×3 (10:05→21:26)
[2018-03-15] MEDS: PHENAZOPYRIDINE HCL 100 MG TAB PO SCH ×3 (10:05→17:16)
--- NOTE | 2018-03-15 11:58 | NUR ---
Nutrition Screen Note RD Recommendation for Physician: - Continue ADA diet as ordered Plan of Care: RD following, monitoring for tolerance and adequacy Nutrition reason for involvement: Follow up Primary Diagnose(s): 1. Urinary tract infection, E-coli, multidrug resistant. 2. Morbid obesity with obstructive sleep apnea 3. Reflux esophagitis PMH: obesity, hypertension, GERD Ht: 61in Wt: 273.37lb 03/09; 283lb 03/13 BMI: 51.7kg/m2 IBW: 105lb RD Assessment: (03/15) Chart reviewed. Visited pt in the room. Pt appears comfortable on BiPAP. Pt has had fair appetite with ~100% recorded PO intake. Pt has been eating food that her brought in and also asked snacks from RN. Pt has been nauseated and Zofran was given. No vomiting episode noted, per . LBM 03/10, pt states it is normal for her to have BM every few days. Pt will notify RN if stool softener needed. No chewing or swallowing difficulty. Will continue to monitor and follow. (03/09) Chart reviewed. Labs and meds reviewed. 62 yo F, who is admitted for UTI. Pt was discussed during rounds. Pt remains confused. Visited pt in the room. on bedside to provide hx as pt was sleeping. Her appetite has been on and off for months. has been assisting with feeding. RN recorded ~75-100% PO intake since admission. No GI complains noted. No chewing or swallowing difficulty. No recent weight loss reported with weight stable at 272lb this year. Will continue to monitor and follow. Current Diet: ADA diet Malnutrition Evaluation (03/09/18) The patient does not meet criteria for a specified degree of malnutrition at this time. Will re-evaluate at follow-up as appropriate. Diet Education Needs Assessment: Diet education is not indicated. Nutrition Care Level: low Signed: Nuria Haney, MS, RD, LD
--- NOTE | 2018-03-15 13:00 | NUR ---
Dr. San here to see pt and received orders from to do CXR 2views on pt.
--- NOTE | 2018-03-15 15:10 | Diagnostic Imaging Report ---
EXAMINATION: CHEST 2 VIEWS INDICATION: Leukocytosis. COMPARISON: 03/10/2018. FINDINGS: Patient is rotated on the film. TUBES and LINES: None. LUNGS: Patchy consolidation in the inferior right upper lobe, and to lesser degree lung bases. PLEURA: No pleural effusion or pneumothorax. HEART AND MEDIASTINUM: The cardiomediastinal silhouette is unremarkable. BONES AND SOFT TISSUES: No acute osseous lesion. Soft tissues are unremarkable. UPPER ABDOMEN: No free air under the diaphragm. IMPRESSION: Findings suggestive of right upper lobe pneumonia. Cannot exclude developing pneumonia in the lung bases. Recommend follow-up after treatment to document resolution. Signed by: Dr. Janki Casillas M.D. on 03/15/2018 3:07 PM
--- NOTE | 2018-03-15 16:02 | NUR ---
Spoke with Sunil JIMENEZ for Dr. Wyatt to report CXR results and received new orders to call if pt temp is greater than 100.5.
[2018-03-15] MEDS: WARFARIN SOD 2 MG TAB PO SCH (17:16)
[2018-03-15] MEDS: TRAZODONE HCL 50 MG TAB PO SCH (21:26)
[2018-03-16] VITALS (9 sets, daily range): BP systolic 115–139; BP diastolic 56–66
[2018-03-16 05:56] LABS: BASOPHILS # (AUTO) 0.1 (0.0-0.1); BASOPHILS % 0.4 % (0.0-1.0); EOSINOPHILS # (AUTO) 0.6 (0.0-0.4); EOSINOPHILS % 3.3 % (0.0-6.0); HEMATOCRIT 32.7 % (34.2-44.1); HEMOGLOBIN 9.8 g/dL (12.0-16.0); LYMPHOCYTES # (AUTO) 3.5 (1.0-3.2); LYMPHOCYTES % 19.4 % (18.0-39.1); MEAN CORPUSCULAR HEMOGLOBIN 26.3 pg (28-32); MEAN CORPUSCULAR VOLUME 87.7 fL (81-99); NEUTROPHILS # (AUTO) 11.7 (2.1-6.9); NEUTROPHILS % 65.2 % (38.7-80.0); PLATELET COUNT 574 x10e3/uL (140-360); RED BLOOD COUNT 3.73 x10e6/uL (3.6-5.1); RED CELL DISTRIBUTION WIDTH 16.7 % (11.7-14.4)
[2018-03-16 06:09] LABS: INR 2.56; PROTHROMBIN TIME 29.4 seconds (11.9-14.5)
[2018-03-16 06:41] LABS: ANISOCYTOSIS SLIGHT; EOSINOPHILS % (MANUAL) 5 % (0-7); LYMPHOCYTES % (MANUAL) 19 % (19-48); MICROCYTOSIS SLIGHT; MONOCYTES % (MANUAL) 5 % (3.4-9.0); NEUTROPHILS % (MANUAL) 71 % (40-74); PLATELET ESTIMATE MODERATELY INCREASED; PLATELET MORPHOLOGY COMMENT NORMAL; RBC MORPHOLOGY COMMENT ABNORMAL
[2018-03-16] MEDS: HYDROMORPHONE 2MG/ML 2 MG/ML ML IV PRN ×3 (08:04→19:40)
[2018-03-16] MEDS: ONDANSETRON HCL INJ 2MG/ML 2ML 2 MG/ML VIAL IV PRN ×2 (08:07→13:50)
--- NOTE | 2018-03-16 08:32 | Progress Note ---
DATE: SUBJECTIVE: Patient is here for urinary tract infection, ureteral stone status post stent, currently running a low-grade fever. No chest pain, no shortness of breath, and no nausea, vomiting, or diarrhea. Patent does not have any abdominal pain either. Positive for some cough. OBJECTIVE VITAL SIGNS: Temperature is 97.5, afebrile for the last 24 hours, pulse is 63, respirations are 20, blood pressure is 132/62. CVS: S1, S2 normal. Distant heart sounds. Regular rate and rhythm. ABDOMEN: Nontender, nondistended. LUNGS : Decreased air entry into lung woods. EXTREMITIES: No clubbing, no cyanosis. Positive for trace edema. MICROBIOLOGY: Urine culture positive for E. coli. Patient was on Invanz. Yesterday, the patient's Invanz was stopped. Patient is currently not on any antibiotics. PICC line has been placed. LABORATORY VALUES: Today's white count is down from 21,000 to 17.97, hemoglobin of 9.8, hematocrit of 32.7. Chemistries; sodium 137, potassium 3.5, BUN of 32, creatinine of 2.80 with GFR of 17. Urine culture is noted and a repeat culture was done yesterday. Coags; PT/INR 29.4 and 22.56. IMAGING: A CT scan was done yesterday. CT scan shows status post interval placement of left internal double-J ureteral stent, status post right nephrectomy, residual mild left perinephric stranding, otherwise negative. A chest x-ray was done because of elevated white count, suggestive of right upper lobe pneumonia, cannot exclude developing pneumonia in the lung bases. Recommend followup treatment. ASSESSMENT AND PLAN 1. Urinary tract infection. Invanz stopped. Patient has signs suggestive of pneumonia. We will continue with breathing treatments. Hold off on antibiotics. 2. Possible drug fever. Again, stopped Invanz. Repeat a chest x-ray tomorrow. 3. Ureteral stent and urinary tract infection. We will continue monitoring and also await for the repeat culture. 4. Leukocytosis. Check CBC tomorrow. 5. Morbid obesity. 6. Chronic kidney disease. Creatinine is holding stable and patient's INR is within normal range. Further recommendations per clinical course. We will continue monitoring the patient. Possible hold antibiotics at this time and continue watching the patient until tomorrow and trend the white count. Job#: [id number] ANASTACIO
[2018-03-16] MEDS: ALPRAZOLAM 1 MG TAB PO SCH ×3 (08:54→21:27)
[2018-03-16] MEDS: PHENAZOPYRIDINE HCL 100 MG TAB PO SCH ×3 (08:54→18:29)
[2018-03-16] MEDS: METOPROLOL SUCCINATE 50 MG TAB XL PO SCH (08:54)
[2018-03-16] MEDS: FAMOTIDINE 20 MG/2 ML VIAL IV SCH ×2 (08:55→16:40)
[2018-03-16] MEDS: AMLODIPINE BESYLATE 10 MG TAB PO SCH (08:55)
[2018-03-16] MEDS: BUSPIRONE HCL 5 MG TAB PO SCH ×2 (08:55→16:42)
[2018-03-16] MEDS: PANTOPRAZOLE SOD 40 MG TABEC PO SCH (08:55)
[2018-03-16] MEDS: LIOTHYRONINE SODIUM 5 MCG TAB PO SCH (08:55)
[2018-03-16] MEDS: ISOSORBIDE MONONITRATE 30 MG TAB CR PO SCH (08:55)
[2018-03-16] MEDS: DULOXETINE HCL 30 MG DELAYED RELEASE PO SCH (08:55)
[2018-03-16] MEDS: OXYBUTYNIN CHLORIDE 5 MG TAB PO SCH (08:55)
[2018-03-16] MEDS: CLOPIDOGREL BISULFATE 75 MG TAB PO SCH (08:55)
--- NOTE | 2018-03-16 10:20 | NUR ---
Patient resting in bed, not in any distress, call light in reach
[2018-03-16] MEDS: WARFARIN SOD 2 MG TAB PO SCH (16:42)
[2018-03-16] MEDS: TRAZODONE HCL 50 MG TAB PO SCH (21:27)
[2018-03-17] VITALS (7 sets, daily range): BP systolic 111–157; BP diastolic 56–67
[2018-03-17] MEDS: HYDROMORPHONE 2MG/ML 2 MG/ML ML IV PRN ×3 (02:32→22:06)
[2018-03-17 05:11] LABS: BASOPHILS # (AUTO) 0.1 (0.0-0.1); BASOPHILS % 0.5 % (0.0-1.0); EOSINOPHILS # (AUTO) 0.8 (0.0-0.4); EOSINOPHILS % 4.6 % (0.0-6.0); HEMATOCRIT 29.2 % (34.2-44.1); LYMPHOCYTES # (AUTO) 3.1 (1.0-3.2); LYMPHOCYTES % 19.1 % (18.0-39.1); MEAN CORPUSCULAR HEMOGLOBIN 26.3 pg (28-32); MEAN CORPUSCULAR HGB CONC 30.8 g/dL (31-35); MEAN CORPUSCULAR VOLUME 85.4 fL (81-99); MONOCYTES # (AUTO) 2.2 (0.2-0.8); MONOCYTES % 13.3 % (4.4-11.3); NEUTROPHILS % 61.9 % (38.7-80.0); PLATELET COUNT 611 x10e3/uL (140-360); RED BLOOD COUNT 3.42 x10e6/uL (3.6-5.1); RED CELL DISTRIBUTION WIDTH 16.3 % (11.7-14.4)
[2018-03-17 05:39] LABS: ANION GAP 14.7 mmol/L (8-16); CREATININE, SERUM 2.78 mg/dL (0.57-1.11); POTASSIUM 3.7 mmol/L (3.5-5.1)
[2018-03-17 06:06] LABS: BAND NEUTROPHILS % (MANUAL) 2 %; EOSINOPHILS % (MANUAL) 2 % (0-7); LYMPHOCYTES % (MANUAL) 21 % (19-48); MONOCYTES % (MANUAL) 11 % (3.4-9.0); NEUTROPHILS % (MANUAL) 63 % (40-74); PLATELET ESTIMATE MODERATELY INCREASED
[2018-03-17 06:07] LABS: ANISOCYTOSIS S; PLATELET MORPHOLOGY COMMENT FEW LARGE; POIKILOCYTOSIS SLIGHT
[2018-03-17 06:12] LABS: RBC MORPHOLOGY COMMENT NORMAL
--- NOTE | 2018-03-17 06:31 | NUR ---
Attempted to call Dr. Dejan Cannon ([phone])for consult. No answer. Will reattempt later.
[2018-03-17 07:22] LABS: INR 2.75; PROTHROMBIN TIME 31.1 seconds (11.9-14.5)
--- NOTE | 2018-03-17 07:40 | NUR ---
patient resting in bed, Alert with no distress,call light in reach, denies any pain or SOB, family at bedside
[2018-03-17] MEDS: PHENAZOPYRIDINE HCL 100 MG TAB PO SCH ×3 (09:08→17:52)
[2018-03-17] MEDS: ALPRAZOLAM 1 MG TAB PO SCH ×3 (09:08→21:00)
[2018-03-17] MEDS: PANTOPRAZOLE SOD 40 MG TABEC PO SCH (09:08)
[2018-03-17] MEDS: CLOPIDOGREL BISULFATE 75 MG TAB PO SCH (09:08)
[2018-03-17] MEDS: OXYBUTYNIN CHLORIDE 5 MG TAB PO SCH (09:09)
[2018-03-17] MEDS: LIOTHYRONINE SODIUM 5 MCG TAB PO SCH (09:09)
[2018-03-17] MEDS: BUSPIRONE HCL 5 MG TAB PO SCH ×2 (09:09→17:05)
[2018-03-17] MEDS: DULOXETINE HCL 30 MG DELAYED RELEASE PO SCH (09:09)
[2018-03-17] MEDS: FAMOTIDINE 20 MG/2 ML VIAL IV SCH ×2 (09:09→17:05)
--- NOTE | 2018-03-17 09:09 | Diagnostic Imaging Report ---
PROCEDURE: X-RAY CHEST, TWO VIEWS COMPARISON: 03/15/2018. INDICATIONS: PNEUMONIA FINDINGS: LUNGS: Opacity previously identified in the right upper lobe has resolved. It therefore likely was secondary to atelectasis. Mild pulmonary vascular congestion. PLEURA: No effusions or pneumothorax. HEART & MEDIASTINUM: The heart is enlarged. BONES & SOFT TISSUES: No acute findings. CONCLUSION: Mild pulmonary vascular congestion. Fer Elizabeth D.O. Dictated by: Fer Elizabeth D.O. on 03/17/2018 at 9:20 Electronically approved by: Fer Elizabeth D.O. on 03/17/2018 at 9:20
[2018-03-17] MEDS: AMLODIPINE BESYLATE 10 MG TAB PO SCH (09:40)
[2018-03-17] MEDS: ISOSORBIDE MONONITRATE 30 MG TAB CR PO SCH (09:40)
[2018-03-17] MEDS: METOPROLOL SUCCINATE 50 MG TAB XL PO SCH (09:40)
--- NOTE | 2018-03-17 15:10 | Consultation ---
DATE OF CONSULTATION: March 17, 2018 REFERRING PHYSICIAN: Karl Torres MD I would like to thank Dr. Torres for asking me to see Ms. Preciado in consultation. REASONS FOR CONSULTATION 1. Debility. 2. Urinary tract infection. 3. Morbid obesity. 4. History of reflux. 5. Hypertension. HISTORY: Ms. Preciado is a pleasant but unfortunate 62-year-old female with a history of obesity, hypertension, reflux, and nausea, who was admitted to this facility for having fevers, rash and chills. Diagnosed with UTI but also has multiple allergies. Dr. Wyatt was consulted. Right now, she is doing a lot better but has become quite debilitated. I am being asked to evaluate for rehab needs. PAST MEDICAL HISTORY: Includes obesity, hypertension, reflux. SURGERIES: Noncontributory. ALLERGIES: NO KNOWN DRUG ALLERGIES. HABITS: Nonsmoker and nondrinker. SOCIAL HISTORY: She lives with her family in a 2-story home. Bedroom is upstairs. She said she was not much of an ambulator, meaning she would just walk around the house, but when she got around, she did use a walker and/or a cane depending on the situation. She has had a decline in function for a while. FAMILY HISTORY: Noncontributory. CONSTITUTIONAL REVIEW OF SYSTEMS: An 11-point review of systems was asked of the patient which was essentially negative except for the above findings. LABORATORY DATA: White count 16.1, hemoglobin 9, hematocrit 22, platelets 611. Sodium 138, potassium 3.7, BUN 36, creatinine 2.78. She had a chest x-ray which showed mild pulmonary vascular congestion. Abdominal and pelvic CT showed status post interval placement of a double-J ureteral stent, removal of a distal ureteral stone. No hydro. PHYSICAL EXAMINATION GENERAL: The patient is awake and alert. She is tired. She is laying in bed. O2 via nasal cannula. EYES: Gaze is conjugate. ORAL: Tongue is midline. NECK: Supple. HEART: Regular. LUNGS: Diminished breath sounds throughout. She is on O2 via nasal cannula. ABDOMEN: Obese. EXTREMITIES: Functional range of motion to the arms. Limited range of motion to the legs. She just seems to be a little bit weaker on the left arm compared to the right arm, but that is not new. She also has shortness of the right lower extremity, which she says has been present since she was a child. She is not sure what it is due to. MANUAL MUSCLE TESTING: Reveals 3+/5 to 4-/5 strength in the right arm throughout. In the left upper extremity, shoulder flexion and extension show 3+/5 strength. 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 In the lower extremities, within an achievable range of motion, she demonstrated 4-/5 to 4/5 strength in the legs bilaterally. From a physical therapy standpoint, the patient was initiated with therapy. Still very weak overall. Sat up for about 5 minutes with max assist for balance. IMPRESSION 1. Debilitated state. 2. Urinary tract infection. 3. Renal stents. 4. Obesity. 5. Hypertension. PLAN: The patient is now back to her prior level of function. Could benefit from multidisciplinary rehab program. Continue treating her infection but at the same time work on building up her strength and endurance. Will follow along with you and check on insurance. Thank you once again for allowing me to participate in the care of this pleasant but unfortunate patient. Job#: [id number]
--- NOTE | 2018-03-17 19:00 | NUR ---
patient recieved awake, alert, lying quietly in bed. vss. no c/o pain noted. pm assessment complete. noted at the bedside. patient/ instructed to call for assistance when needed.
[2018-03-17] MEDS: TRAZODONE HCL 50 MG TAB PO SCH (21:00)
[2018-03-18] VITALS (7 sets, daily range): BP systolic 101–156; BP diastolic 52–77
[2018-03-18] MEDS ORDERED: FUROSEMIDE INJ 10 MG/ML 2 ML VIAL IV ONE (05:45)
[2018-03-18] MEDS ORDERED: HYDROMORPHONE 1MG/1ML INJ IV PRN (09:45)
[2018-03-18] MEDS: ALPRAZOLAM 1 MG TAB PO SCH ×3 (09:47→21:00)
[2018-03-18] MEDS: ISOSORBIDE MONONITRATE 30 MG TAB CR PO SCH (09:47)
[2018-03-18] MEDS: CLOPIDOGREL BISULFATE 75 MG TAB PO SCH (09:47)
[2018-03-18] MEDS: DULOXETINE HCL 30 MG DELAYED RELEASE PO SCH (09:47)
[2018-03-18] MEDS: AMLODIPINE BESYLATE 10 MG TAB PO SCH (09:47)
[2018-03-18] MEDS: LIOTHYRONINE SODIUM 5 MCG TAB PO SCH (09:47)
[2018-03-18] MEDS: FAMOTIDINE 20 MG/2 ML VIAL IV SCH ×2 (09:47→16:20)
[2018-03-18] MEDS: METOPROLOL SUCCINATE 50 MG TAB XL PO SCH (09:47)
[2018-03-18] MEDS: BUSPIRONE HCL 5 MG TAB PO SCH ×2 (09:47→16:22)
[2018-03-18] MEDS: PHENAZOPYRIDINE HCL 100 MG TAB PO SCH ×3 (09:47→18:05)
[2018-03-18] MEDS: OXYBUTYNIN CHLORIDE 5 MG TAB PO SCH (09:47)
[2018-03-18] MEDS: PANTOPRAZOLE SOD 40 MG TABEC PO SCH (09:47)
[2018-03-18] MEDS: HYDROMORPHONE 2MG/ML 2 MG/ML ML IV PRN ×2 (10:19→19:40)
--- NOTE | 2018-03-18 14:10 | NUR ---
patient resting in bed , no distress noted, assisted her to use bed farias, tolerated with lunch, call light in reach, at bed side
--- NOTE | 2018-03-18 19:30 | NUR ---
patient recieved awake, alert, lying quietly in bed. vss. patient c/o lower back pain 09/29. patient assisted on to bedpan at this time. patient voids drk, cloudy urine. pm assessment complete. noted at the bedside. patient/ instructed to call for assistance when needed.
[2018-03-18] MEDS: ONDANSETRON HCL INJ 2MG/ML 2ML 2 MG/ML VIAL IV PRN (19:40)
[2018-03-18] MEDS: TRAZODONE HCL 50 MG TAB PO SCH (21:00)
[2018-03-19] VITALS (7 sets, daily range): BP systolic 104–161; BP diastolic 55–98
[2018-03-19] MEDS: HYDROMORPHONE 2MG/ML 2 MG/ML ML IV PRN ×5 (01:05→22:34)
[2018-03-19] MEDS: ONDANSETRON HCL INJ 2MG/ML 2ML 2 MG/ML VIAL IV PRN ×5 (01:05→22:34)
[2018-03-19] MEDS: LIOTHYRONINE SODIUM 5 MCG TAB PO SCH (09:32)
[2018-03-19] MEDS: DULOXETINE HCL 30 MG DELAYED RELEASE PO SCH (09:32)
[2018-03-19] MEDS: ISOSORBIDE MONONITRATE 30 MG TAB CR PO SCH (09:32)
[2018-03-19] MEDS: FAMOTIDINE 20 MG/2 ML VIAL IV SCH ×2 (09:32→17:51)
[2018-03-19] MEDS: OXYBUTYNIN CHLORIDE 5 MG TAB PO SCH (09:32)
[2018-03-19] MEDS: BUSPIRONE HCL 5 MG TAB PO SCH ×2 (09:32→17:51)
[2018-03-19] MEDS: AMLODIPINE BESYLATE 10 MG TAB PO SCH (09:32)
[2018-03-19] MEDS: PHENAZOPYRIDINE HCL 100 MG TAB PO SCH ×3 (09:32→18:39)
[2018-03-19] MEDS: CLOPIDOGREL BISULFATE 75 MG TAB PO SCH (09:32)
[2018-03-19] MEDS: METOPROLOL SUCCINATE 50 MG TAB XL PO SCH (09:32)
[2018-03-19] MEDS: PANTOPRAZOLE SOD 40 MG TABEC PO SCH (09:32)
--- NOTE | 2018-03-19 11:21 | NUR ---
Received order to transfer to [facility] when accepted. CM met with pt spouse, as pt was sleeping. Mr. Karan Preciado signed choice letter and stated they have agreed to [facility]. [facility]: [phone]. Called Susu and left her confidential voice mail regarding faxed clinical. [address] [address] fax: [phone]
--- NOTE | 2018-03-19 11:26 | NUR ---
Received call from [facility] ([facility] She received fax and believes she will have an available bed today. She will call back later today with update.
--- NOTE | 2018-03-19 19:13 | NUR ---
PATIENT IS RESTING IN BED- IN STABLE CONDITION WITH NO S/S OF RESPIRATORY DISTRESS. PATIENT REQUESTING PAIN MEDICATION. PRESENT IN ROOM. CALL LIGHT IS WITHIN REACH, INSTRUCTED TO CALL FOR ASSISTANCE NEEDED. REPORT GIVEN TO ONCOMING NURSE.
--- NOTE | 2018-03-19 19:15 | NUR ---
RECEIVED PT IN BED WATCHING TV. NO S/S OF RESP DISTRESS. C/O PAIN AT THIS TIME. PRN PAIN MED AVAILABLE. CALL LIGHT WITHIN REACH AND INSTRUCTED TO CALL FOR ASSISTANCE.
[2018-03-19] MEDS: TRAZODONE HCL 50 MG TAB PO SCH (20:50)
[2018-03-20] VITALS (7 sets, daily range): BP systolic 124–166; BP diastolic 59–73
[2018-03-20] MEDS: HYDROMORPHONE 2MG/ML 2 MG/ML ML IV PRN ×5 (05:28→21:45)
[2018-03-20] MEDS: ONDANSETRON HCL INJ 2MG/ML 2ML 2 MG/ML VIAL IV PRN ×3 (05:28→21:45)
--- NOTE | 2018-03-20 07:11 | NUR ---
PATIENT IS IN STABLE CONDITION WITH NO S/S OF RESPIRATORY DISTRESS. PATIENT DENIES PAIN. CPAP APPLIED. PRESENT IN ROOM. CALL LIGHT IS WITHIN REACH, INSTRUCTED TO CALL FOR ASSISTANCE NEEDED.
[2018-03-20] MEDS: CLOPIDOGREL BISULFATE 75 MG TAB PO SCH (09:05)
[2018-03-20] MEDS: OXYBUTYNIN CHLORIDE 5 MG TAB PO SCH (09:05)
[2018-03-20] MEDS: FAMOTIDINE 20 MG/2 ML VIAL IV SCH ×2 (09:05→16:52)
[2018-03-20] MEDS: LIOTHYRONINE SODIUM 5 MCG TAB PO SCH (09:05)
[2018-03-20] MEDS: BUSPIRONE HCL 5 MG TAB PO SCH ×2 (09:05→16:52)
[2018-03-20] MEDS: AMLODIPINE BESYLATE 10 MG TAB PO SCH (09:05)
[2018-03-20] MEDS: ISOSORBIDE MONONITRATE 30 MG TAB CR PO SCH (09:05)
[2018-03-20] MEDS: PANTOPRAZOLE SOD 40 MG TABEC PO SCH (09:05)
[2018-03-20] MEDS: PHENAZOPYRIDINE HCL 100 MG TAB PO SCH ×3 (09:05→18:17)
[2018-03-20] MEDS: DULOXETINE HCL 30 MG DELAYED RELEASE PO SCH (09:05)
[2018-03-20] MEDS: METOPROLOL SUCCINATE 50 MG TAB XL PO SCH (09:06)
--- NOTE | 2018-03-20 14:15 | Progress Note ---
DATE: March 20, 2018 SUBJECTIVE: Ms. Preciado was seen on rounds today. Her family is at the bedside. Patient is doing okay. No apparent distress at this time. OBJECTIVE VITAL SIGNS: Temperature 99.0, respirations of 22, heart rate of 81, blood pressure of 141/66. HEART: Regular. LUNGS: Fair air entry. ABDOMEN: Nondistended. feels better, just weak overall. Doing about the same. Just awaiting discharge disposition hopefully to rehab soon. Job#: [id number] SULEMAN
--- NOTE | 2018-03-20 19:25 | NUR ---
PATIENT IS IN STABLE CONDITION WITH NO S/S OF RESPIRATORY DISTRESS. NO PAIN VOICED. CPAP APPLIED. PRESENT IN ROOM. CALL LIGHT IS WITHIN REACH, INSTRUCTED TO CALL FOR ASSISTANCE NEEDED. REPORT GIVEN TO ONCOMING NURSE.
[2018-03-20] MEDS: TRAZODONE HCL 50 MG TAB PO SCH (21:22)
[2018-03-21] VITALS (7 sets, daily range): BP systolic 130–156; BP diastolic 56–67
[2018-03-21] MEDS: HYDROMORPHONE 2MG/ML 2 MG/ML ML IV PRN ×4 (02:35→19:41)
[2018-03-21] MEDS: ONDANSETRON HCL INJ 2MG/ML 2ML 2 MG/ML VIAL IV PRN ×2 (02:35→19:42)
--- NOTE | 2018-03-21 07:04 | NUR ---
Patient and family voiced concerns regarding warfarin, notified Dr. Torres, no orders received.
[2018-03-21 07:43] LABS: BASOPHILS # (AUTO) 0.1 (0.0-0.1); BASOPHILS % 0.5 % (0.0-1.0); EOSINOPHILS # (AUTO) 0.8 (0.0-0.4); EOSINOPHILS % 4.7 % (0.0-6.0); HEMATOCRIT 32.9 % (34.2-44.1); LYMPHOCYTES % 29.5 % (18.0-39.1); MEAN CORPUSCULAR HEMOGLOBIN 26.2 pg (28-32); MEAN CORPUSCULAR HGB CONC 30.4 g/dL (31-35); MEAN CORPUSCULAR VOLUME 86.4 fL (81-99); MONOCYTES # (AUTO) 1.3 (0.2-0.8); MONOCYTES % 7.6 % (4.4-11.3); NEUTROPHILS # (AUTO) 9.7 (2.1-6.9); NEUTROPHILS % 56.8 % (38.7-80.0); PLATELET COUNT 727 x10e3/uL (140-360); RED BLOOD COUNT 3.81 x10e6/uL (3.6-5.1)
[2018-03-21] MEDS ORDERED: NYSTATIN 15 GM POWDER UD BTL TOP PRN ×2 (08:00→11:15)
[2018-03-21 08:09] LABS: ALBUMIN 2.6 g/dL (3.5-5.0); ALBUMIN/GLOBULIN RATIO 0.6 (0.8-2.0); ANION GAP 17.8 mmol/L (8-16); CALCIUM 9.6 mg/dL (8.4-10.2); CREATININE, SERUM 2.76 mg/dL (0.57-1.11); POTASSIUM 3.8 mmol/L (3.5-5.1)
[2018-03-21] MEDS: DULOXETINE HCL 30 MG DELAYED RELEASE PO SCH (09:01)
[2018-03-21] MEDS: PANTOPRAZOLE SOD 40 MG TABEC PO SCH (09:01)
[2018-03-21] MEDS: PHENAZOPYRIDINE HCL 100 MG TAB PO SCH ×3 (09:01→17:47)
[2018-03-21] MEDS: BUSPIRONE HCL 5 MG TAB PO SCH ×2 (09:01→16:14)
[2018-03-21] MEDS: LIOTHYRONINE SODIUM 5 MCG TAB PO SCH (09:01)
[2018-03-21] MEDS: ISOSORBIDE MONONITRATE 30 MG TAB CR PO SCH (09:01)
[2018-03-21] MEDS: OXYBUTYNIN CHLORIDE 5 MG TAB PO SCH (09:01)
[2018-03-21] MEDS: CLOPIDOGREL BISULFATE 75 MG TAB PO SCH (09:01)
[2018-03-21] MEDS: AMLODIPINE BESYLATE 10 MG TAB PO SCH (09:01)
[2018-03-21] MEDS: FAMOTIDINE 20 MG/2 ML VIAL IV SCH ×2 (09:01→16:14)
[2018-03-21] MEDS: METOPROLOL SUCCINATE 50 MG TAB XL PO SCH (09:01)
--- NOTE | 2018-03-21 09:53 | NUR ---
PATIENT IS IN STABLE CONDITION WITH NO S/S OF RESPIRATORY DISTRESS. PATIENT'S LOWER BACK/KNEE PAIN HAS IMPROVED TO A 3/10 SCALE SINCE PAIN MEDICATION WAS ADMINISTERED. BED ALARM ON. CALL LIGHT IS WITHIN REACH, PATIENT INSTRUCTED TO CALL FOR ASSISTANCE NEEDED.
[2018-03-21] MEDS: ALPRAZOLAM 1 MG TAB PO SCH ×3 (11:22→21:17)
--- NOTE | 2018-03-21 11:23 | NUR ---
PATIENT RECEIVED XANAX REQUESTED. RECEIVED ORDER FROM DR. ACOSTA FOR XANAX 1MG PO TID.
[2018-03-21] MEDS: WARFARIN SOD 2 MG TAB PO SCH (16:14)
--- NOTE | 2018-03-21 17:47 | Progress Note ---
DATE: SUBJECTIVE: Ms. Preciado was seen on rounds today. She states that she is doing okay. She is walking long distances, but it is getting difficult for her to maintain her respiratory status. States that she gets short of breath easily, which is very expected given her situation. LABORATORY DATA: Today, labs are pending. OBJECTIVE VITAL SIGNS: Temperature 96.6, respirations of 18, heart rate is 60, blood pressure of 138/63. HEART: Regular. LUNGS: Diminished breath sounds throughout. ABDOMEN: Nondistended, nontender. IMPRESSION AND PLAN: Clinically, she is doing about the same, making progress. White cell count 11.1, hemoglobin 9.2, hematocrit 28.8, and platelets of 223. Overall, she is doing okay. Continue supportive care at this time. Job#: [id number] RADHA
--- NOTE | 2018-03-21 17:49 | Progress Note ---
DATE: March 21, 2018 SUBJECTIVE: Ms. Preciado is seen on rounds today. Spouse is at the bedside. She says she had an okay night. No new complaints at this time. She is still just really weak and tired overall. OBJECTIVE VITAL SIGNS: Temperature 96.6, respirations of 18, heart rate 60, blood pressure 138/63. HEART: Regular. LUNGS: Fair air entry. ABDOMEN: Nondistended, nontender. NECK: No JVD. IMPRESSION AND PLAN: Clinically, doing about the same and making a little bit of progress. Continue supportive care. Working on insurance approval for her to coming to inpatient rehab. Job#: [id number] LPA
--- NOTE | 2018-03-21 19:05 | NUR ---
PATIENT IS IN STABLE CONDITION WITH NO S/S OF RESPIRATORY DISTRESS. NO PAIN VOICED. PRESENT IN ROOM. CALL LIGHT IS WITHIN REACH, INSTRUCTED TO CALL FOR ASSISTANCE NEEDED. REPORT GIVEN TO ONCOMING NURSE.
[2018-03-21] MEDS: TRAZODONE HCL 50 MG TAB PO SCH (21:17)
[2018-03-22] VITALS: BP 124/60
--- NOTE | 2018-03-22 01:39 | NUR ---
PT RESTING WELL WITH AT BEDSIDE. DENIES PAIN AT THIS TIME. NO S/S OF RESP DISTRESS. CALL LIGHT WITHIN REACH, BED LOCKED IN LOWEST POSITION.
[2018-03-22 04:00] VITALS: BP 156/70
--- NOTE | 2018-03-22 04:22 | NUR ---
PT RESTING WELL WITH AT BEDSIDE. NO S/S OF RESP DISTRESS. CALL LIGHT WITHIN REACH, BED LOCKED IN LOWEST POSITION.
--- NOTE | 2018-03-22 06:00 | NUR ---
ASSISTED PT TO BEDSIDE COMMODE AND RETURN BACK TO BED. HAD 1 LARGE SOFT BROWN BM.
[2018-03-22] MEDS: HYDROMORPHONE 2MG/ML 2 MG/ML ML IV PRN ×3 (06:15→17:23)
[2018-03-22] MEDS: ONDANSETRON HCL INJ 2MG/ML 2ML 2 MG/ML VIAL IV PRN ×2 (06:15→12:05)
[2018-03-22] MEDS: PANTOPRAZOLE SOD 40 MG TABEC PO SCH (09:53)
[2018-03-22] MEDS: BUSPIRONE HCL 5 MG TAB PO SCH ×2 (09:53→17:22)
[2018-03-22] MEDS: ALPRAZOLAM 1 MG TAB PO SCH ×2 (09:53→14:28)
[2018-03-22] MEDS: METOPROLOL SUCCINATE 50 MG TAB XL PO SCH (09:53)
[2018-03-22] MEDS: OXYBUTYNIN CHLORIDE 5 MG TAB PO SCH (09:53)
[2018-03-22] MEDS: PHENAZOPYRIDINE HCL 100 MG TAB PO SCH ×3 (09:53→17:22)
[2018-03-22] MEDS: DULOXETINE HCL 30 MG DELAYED RELEASE PO SCH (09:53)
[2018-03-22] MEDS: AMLODIPINE BESYLATE 10 MG TAB PO SCH (09:53)
[2018-03-22] MEDS: ISOSORBIDE MONONITRATE 30 MG TAB CR PO SCH (09:53)
[2018-03-22] MEDS: CLOPIDOGREL BISULFATE 75 MG TAB PO SCH (09:53)
[2018-03-22] MEDS: LIOTHYRONINE SODIUM 5 MCG TAB PO SCH (09:53)
[2018-03-22] MEDS: FAMOTIDINE 20 MG/2 ML VIAL IV SCH ×2 (12:03→17:22)
[2018-03-22 12:05] VITALS: BP 160/72
[2018-03-22 12:07] VITALS: BP 143/68
--- NOTE | 2018-03-22 14:20 | NUR ---
MOT FOR [facility] REC'D RM 3[address] DR MYLENE MENA PROGRESS DEVELOPER DIXONAC OPERATOR PT TO GO THRU ER TO REGISTER PT CAN BE TRANSFERED AT 7PM TODAY CALL REPORT TO [phone]
[2018-03-22 16:42] VITALS: BP 136/66
[2018-03-22] MEDS: WARFARIN SOD 2 MG TAB PO SCH (17:22)
--- NOTE | 2018-03-22 19:09 | NUR ---
Pt in bed resting, orders to be discharged to [facility] after 7pm, passed on next shift. Pt medicated for pain as needed, safety maintained
--- NOTE | 2018-03-22 19:46 | NUR ---
CALLED REPORT TO JESSICA CELESTIN AT [facility].
--- NOTE | 2018-03-22 20:00 | NUR ---
[facility] PT BELONGINGS GATHERED BY . PT TRANSFERRED IN STABLE CONDITION.
--- NOTE | 2018-05-02 15:03 | Discharge Summary ---
DISCHARGE DIAGNOSIS: Sepsis secondary to urinary tract infection, failed outpatient treatment. HISTORY OF PRESENT ILLNESS AND HOSPITAL COURSE: See hospital chart for full details. Patient is a lady who failed multiple rounds of outpatient treatment for her urinary tract infection. Came in with sepsis secondary to urinary tract infection. Was seen by infectious disease, as well as urology with Dr. San. Urine culture grew out E. coli, but due to patient's multiple sensitivities, she was placed on ertapenem. The patient unfortunately also started to develop some left leg pain where she was then noticed to have a kidney stone on the CT scan. She had evidence of worsening leukocytosis. After her antibiotic therapy, repeat urine culture was negative. Then, Dr. San was able to go in and put a left stent in without any complications. White count normalized initially, went back up, then started to improve as well, but also due to her overall weakness and continued need for care, she was then sent to [facility] for further intensive therapy as well as continued medical treatment, so she was then transferred to rehab. Please see hospital chart for full details. KYLEE ACOSTA MD Job#: [id number] ROSE
--- NOTE | 2018-05-17 08:43 | Operative Report ---
DATE OF PROCEDURE: 03/12/2018 SURGEON: Darren San MD PREOPERATIVE DIAGNOSES: 1. Urinary tract infection. 2. Left hydronephrosis. POSTOPERATIVE DIAGNOSES: 1. Urinary tract infection. 2. Left ureteral stricture. 3. Left hydronephrosis due to stricture. 4. Grade 3 rectocele. 5. Atrophic (senile) vaginitis. OPERATIONS PERFORMED: 1. Cystourethroscopy with bilateral ureteral catheterization and retrograde ureteropyelography ( urinary tract infections). 2. Interpretation of retrograde ureteropyelography. 3. Supervision of fluoroscopy, no present. 4. Cystourethroscopy with dilation of left urethral stricture (surgery performed for the diagnosis of stricture). 5. Radiological services for supervision and interpretation of stricture dilation. 6. Left ureteroscopy with dilation of ureteral stricture (surgery performed for the diagnosis of stricture). 7. Radiological services for supervision and interpretation of ureteroscopy. 8. Cystourethroscopy and insertion of left indwelling urethral stents ( hydronephrosis to the stricture). 9. Pelvic examination under anesthesia. ANESTHESIA: General. COMPLICATIONS: None. CLINICAL SUMMARY: Tracy Preciado is a 62-year-old woman with the above preoperative diagnoses. She was brought for the above procedures. She is aware of the risks of bleeding, infection, injury to the adjacent structure, and need for additional procedures, and elected to proceed. PROCEDURE IN DETAIL: Informed consent was verified. Tracy Preciado was properly identified, taken to the operating room, and placed on the cystoscopy table in the supine position. Anesthesia was uneventfully begun. The patient was then carefully and gently repositioned in the dorsal lithotomy position with all pressure points well padded. Her genitalia were prepped and draped in the usual sterile fashion. A 22.5-Irish cystoscope sheath with the obturator in place was atraumatically inserted into the patient's urethra and the bladder was drained. Panendoscopy of the urinary bladder revealed no suspicious mucosal lesions. No tumors. No stones. No diverticula. Normally positioned and configurative ureteral orifices were identified. An 8-Irish catheter was used to cannulate the right ureter and retrograde ureteropyelogram was performed. inserted left ureter and retrograde ureteropyelogram was performed. A guidewire was then placed into the left ureter and guided to the level of the patient's kidney. Flexible ureteroscope was then placed over the guidewire and guided to the level of the narrowing that we noted. We attempted to push across this narrowing and this was unsuccessful. We then removed the ureteroscope and then placed a dilator over the guidewire and guided to this region under fluoroscopic guidance, we were able to dilate this region. We then easily able to place the ureteroscope over the guidewire and guided it and passed this now and dilated strictured region into the patient's kidney where panendoscopy revealed Aaron's plaques, but no tumors, no stones, and no diverticula. Contrast was injected. We carefully removed the ureteroscope, re-examined the ureter, which was now opened. Under cystoscope and fluoroscopic guidance, the left-sided indwelling ureteral stent was then placed, it was curled in the patient's kidney as well as the patient's bladder. The retaining suture was cut short. Interpretation of Retrograde Ureteropyelography: Contrast was instilled in a retrograde fashion bilaterally. The right side was unremarkable. There was a two-thirds of the ureter present. The ureter was then cut off due to the patient's prior radical nephrectomy. On the left-hand side, there was a narrowing present at the midureter, which corresponded to the stricture that we dilated. Proximal to that, there was hydroureteronephrosis. There was a circular calcified mass that proved to be distinct from the collecting system by retrograde studies. The stent was coiled and the patient's kidney as well as the patient' bladder at the end of the case. The patient's bladder was then drained and cystocope was withdrawn. Pelvic examination revealed a grade 3 rectocele with atrophic (senile) vaginitis. No abnormal palpable pelvic masses could be appreciated and there were no obvious mucosal lesions. The patient was then uneventfully reversed from anesthesia and taken to the recovery room in stable condition. There were no complications to the procedure. She tolerated the procedure well. Plans will be to return the patient to the operating room in another month to 6 weeks to remove her stent, perform ureteroscopy, and hopefully render the patient stent-free. Ongoing urological followup is a must. The patient was encouraged to follow up on an ongoing indefinite basis for her urological followup and of course for followup of her cancer. MD RICHIE Jaramillo/ZOE /[id number]
== END 2018-03-22 20:24 | disposition short-term general hospital (02) | DRG 854 ==
LOC: ER 12:48 → ERHOLD 16:41 → MED/SURG3 18:14
PROVIDERS: ADMIT Internal Medicine; ATTEND Internal Medicine
PROC: 0T788DZ Dilation of Bilateral Ureters with Intraluminal Device, Via Natural or Artificial Opening Endoscopic (ICD-10-PCS; principal; 2018-03-03)
PROC: BT141ZZ Fluoroscopy of Kidneys, Ureters and Bladder using Low Osmolar Contrast (ICD-10-PCS; 2018-03-03)
PROC: 0T7D8DZ Dilation of Urethra with Intraluminal Device, Via Natural or Artificial Opening Endoscopic (ICD-10-PCS; 2018-03-03)
DX: A41.9 Sepsis, unspecified organism (principal); N30.01 Acute cystitis with hematuria; N17.9 Acute kidney failure, unspecified; Z68.43 Body mass index [BMI] 50.0-59.9, adult; E87.1 Hypo-osmolality and hyponatremia; R53.81 Other malaise; B96.20 Unspecified Escherichia coli [E. coli] as the cause of diseases classified elsewhere; G47.33 Obstructive sleep apnea (adult) (pediatric); E66.01 Morbid (severe) obesity due to excess calories; K21.9 Gastro-esophageal reflux disease without esophagitis; Z90.5 Acquired absence of kidney; E11.22 Type 2 diabetes mellitus with diabetic chronic kidney disease; I12.9 Hypertensive chronic kidney disease with stage 1 through stage 4 chronic kidney disease, or unspecified chronic kidney disease; N18.3 Chronic kidney disease, stage 3 (moderate); Z79.4 Long term (current) use of insulin; D64.9 Anemia, unspecified; N20.0 Calculus of kidney; P00.89 Newborn affected by other maternal conditions; M19.031 Primary osteoarthritis, right wrist; K21.0 Gastro-esophageal reflux disease with esophagitis; T45.515A Adverse effect of anticoagulants, initial encounter; I25.10 Atherosclerotic heart disease of native coronary artery without angina pectoris; J44.9 Chronic obstructive pulmonary disease, unspecified; Z85.528 Personal history of other malignant neoplasm of kidney
CPT/HCPCS: 36415; 71046; 74176; 74420; 80048; 80053; 81001; 82948; 83605; 83735; 85025; 85610; 87086; 87186; 97139; 99284; C2617; J0360; J0500; J1580; J1940; J2001; J2405; J7030; J7050

== ENCOUNTER 2018-05-23 17:57 | Inpatient (IN) | payer BC ==
[~2018-05-23] VITALS: Ht 154.9 cm; Wt 134.4 kg
[~2018-05-23 17:57] MED LIST changes: +BUMETANIDE1 MG PO; +COUMADIN2 MG PO; +DICYCLOMINE HCL10 MG PO; +HYDROXYZINE HCL25 MG PO; +Linzess PO; +METOPROLOL SUCC50 MG PO; +PLAVIX75 MG PO; +POTASSIUM CHLO10 ME1 PO; +Repatha SC; +TERBINAFINE HC250 MG PO; +TIZANIDINE HCL4 M1 PO; +ZOFRAN8 MG PO
[2018-05-23] MEDS ORDERED: DILAUDID2 MG (18:16)
[2018-05-23] MEDS ORDERED: ONDANSETRON HCL INJ 2MG/ML 2ML 2 MG/ML VIAL IV STA (19:14)
[2018-05-23 19:56] LABS: CLARITY,URINE CLOUDY (CLEAR); COLOR,URINE YELLOW (YELLOW); KETONES,URINE NEGATIVE (NEGATIVE); LEUKOCYTE ESTERASE ,URINE 1+ (NEGATIVE); NITRITE,URINE NEGATIVE (NEGATIVE); PROTEIN,URINE DIPSTICK 3+ (NEGATIVE); URINE UROBILINOGEN 0.2 mg/dL (0.2 - 1)
[2018-05-23 19:57] LABS: BILIRUBIN,URINE NEGATIVE (NEGATIVE)
[2018-05-23 20:12] LABS: WBC,URINE (MAN) >50 /HPF (0-5)
[2018-05-23 20:13] LABS: BACTERIA,URINE FEW /HPF; EPITHELIAL CELLS,URINE RARE /LPF
[2018-05-23] MEDS ORDERED: FENTANYL CITRATE/PF 100MCG/2 ML INJ IV ONE (20:15)
[2018-05-23] MEDS ORDERED: CEFEPIME 1GM/NS 0.9% 50 ML 50 ML IV STA (20:18)
[2018-05-23 22:20] VITALS: BP 170/81
[2018-05-23] MEDS ORDERED: SODIUM CHLORIDE 0.9% 250ML 250 ML ONE (22:36)
[2018-05-23] MEDS: HYDROMORPHONE 2MG/ML 2 MG/ML ML IV PRN (22:38)
[2018-05-24] VITALS (12 sets, daily range): BP systolic 100–165; BP diastolic 49–73
[2018-05-24] MEDS: ONDANSETRON HCL INJ 2MG/ML 2ML 2 MG/ML VIAL IV PRN ×3 (04:40→17:33)
[2018-05-24] MEDS: HYDROMORPHONE 2MG/ML 2 MG/ML ML IV PRN ×5 (04:40→20:58)
[2018-05-24] MEDS ORDERED: CLONIDINE HCL 0.1 MG TAB PO PRN (05:00)
[2018-05-24] MEDS ORDERED: POTASSIUM CHLORIDE 10MEQ EA PO PRN (05:00)
[2018-05-24] MEDS ORDERED: HYDROXYZINE HCL 25 MG TAB PO PRN (05:00)
[2018-05-24] MEDS ORDERED: TIZANIDINE HCL 4 MG TAB PO PRN (05:00)
[2018-05-24] MEDS ORDERED: NITROGLYCERIN 0.4 MG SUBL SL PRN (05:00)
[2018-05-24] MEDS ORDERED: BUMETANIDE 1 MG TAB PO PRN (05:00)
--- NOTE | 2018-05-24 05:12 | NUR ---
PT IS TRANSFERED FROM ER .PT IS AOX3 AND AMBULATE WITH ASSISTANCE .C/O KELLI AT THE BACK RESPIRATIONS ARE EVEN AND UN LABORED SKIN WARM AND DRY NOTED YEAST INFECTION AT THE GROIN REACH .ASSESSMENT DONE .CALL SEARS WITH IN REACH .CONTINUE TO MONITOR
[2018-05-24] MEDS ORDERED: TRAZODONE HCL 50 MG TAB PO PRN (05:15)
[2018-05-24] MEDS ORDERED: ERTAPENEM 1GM/NS 100ML 100 ML IV SCH (07:00)
--- NOTE | 2018-05-24 07:10 | NUR ---
RECEIVED REPORT FROM NIGHT NURSE, WALKING ROUNDS COMPLETED. PATIENT IS RESTING IN BED. NO ACUTE DISTRESS NOTED. CALL LIGHT WITHIN REACH. BED IN THE LOWEST POSITION.
[2018-05-24] MEDS ORDERED: CLOPIDOGREL BISULFATE 75 MG TAB PO SCH (09:00)
[2018-05-24] MEDS: METOPROLOL SUCCINATE 50 MG TAB XL PO SCH (09:00)
[2018-05-24] MEDS: ISOSORBIDE MONONITRATE 30 MG TAB CR PO SCH (09:00)
[2018-05-24] MEDS ORDERED: PANTOPRAZOLE SOD 40 MG TABEC PO SCH (09:00)
[2018-05-24] MEDS: AMLODIPINE BESYLATE 5 MG TAB PO SCH (09:00)
[2018-05-24] MEDS ORDERED: CYTOMEL25 MCG PO (09:50)
[2018-05-24] MEDS: TERBINAFINE 250 MG TAB PO SCH (09:51)
[2018-05-24] MEDS: DULOXETINE HCL 30 MG DELAYED RELEASE PO SCH (09:51)
[2018-05-24] MEDS: OXYBUTYNIN CHLORIDE 5 MG TAB PO SCH (09:51)
[2018-05-24] MEDS: ERTAPENEM 1GM/NS 100ML 100 ML IV SCH (09:51)
[2018-05-24] MEDS: BUSPIRONE HCL 5 MG TAB PO SCH ×2 (09:51→17:32)
[2018-05-24] MEDS: PANTOPRAZOLE SOD 40 MG TABEC PO SCH (09:52)
[2018-05-24] MEDS: ALPRAZOLAM 1 MG TAB PO SCH ×3 (09:52→22:11)
[2018-05-24] MEDS ORDERED: LIOTHYRONINE SODIUM 25 MCG PO SCH (11:00)
--- NOTE | 2018-05-24 13:40 | NUR ---
WOUND CARE CONSULTATION - INITIAL EVALUATION Patient admitted to ER from Home for Dysuria, pain with urination, and urinary frequency. DX: UTI Urine CX- few bacteria WC Consulted at patients request for yeast when placed on ABX/ Rash at groin. PATIENT VISIT: - Ric Score 16 - Alternating Pressure Air Mattress - Moderate PUP active - Pleasant 62 y/o female in bed. - No Pressure ulcers identified - Bilateral Groin- skin intact, no redness, no rash noted. - patient states to get yeast infections frequently at groin areas and breast folds. " right now its okay, but I wanted something to keep me from getting it back while I am here" - Education provided on managing moisture. Verbalizes understanding but will require reinforcement. IMPRESSION: Risk for developing Yeast. History of recurrent dermatologic rash related to yeast. No rash identified at this time RECOMMENDATION - Preventive Care. 1. Bilateral Groin Areas: - Wash area with mild soap and water once a Day & PRN Soiling. Pat Dry Thoroughly, - Apply Nystatin Cream Daily and PRN Soiling. 2. Turn and Reposition q2h 3. Continue Alternating Pressure Air Mattress. 4. Encourage OOB activity. 5. Float/ Offload Heels with Pillows while in bed. Thank you for consulting with Wound Care. Addendum: 05/24/18 at 1351 by Alvarez Fuentes RN Amended: Links added. Addendum: 05/24/18 at 1355 by Alvarez Fuentes RN -Abdomen - Thermal Burn - From heating pack- Stable Scab/ Healing. Open To Air.
[2018-05-24] MEDS ORDERED: WARFARIN SOD 2 MG TAB PO SCH (18:00)
[2018-05-24 18:25] LABS: INR 2.79; PROTHROMBIN TIME 30.2 seconds (11.9-14.5)
--- NOTE | 2018-05-24 19:30 | NUR ---
REPORT GIVEN TO ONCOMING NURSE, WALKING ROUNDS DONE. PATIENT IS RESTING IN BED. NO ACUTE DISTRESS NOTED. SON AT BEDSIDE. CALL LIGHT WITHIN REACH. BED IN THE LOWEST POSITION.
--- NOTE | 2018-05-24 19:44 | NUR ---
PT IS RESTING IN BED WITH SON AT BEDSIDE. NO RESPIRATORY DISTRESS NOTED. BED IN THE LOWEST POSITION, LOCKED, AND CALL LIGHT WITHIN REACH. WILL CONTINUE TO MONITOR.
[2018-05-25] VITALS (8 sets, daily range): BP systolic 117–178; BP diastolic 56–80
[2018-05-25] MEDS: ONDANSETRON HCL INJ 2MG/ML 2ML 2 MG/ML VIAL IV PRN ×5 (02:27→23:38)
[2018-05-25] MEDS: HYDROMORPHONE 2MG/ML 2 MG/ML ML IV PRN ×6 (02:27→23:38)
--- NOTE | 2018-05-25 05:05 | NUR ---
PER DR ACOSTA PT/INR CAN BE ORDERED. WILL CONTINUE TO MONITOR.
[2018-05-25 06:33] LABS: BASOPHILS # (AUTO) 0.1 (0.0-0.1); BASOPHILS % 0.5 % (0.0-1.0); EOSINOPHILS # (AUTO) 0.4 (0.0-0.4); EOSINOPHILS % 2.4 % (0.0-6.0); HEMATOCRIT 32.9 % (34.2-44.1); HEMOGLOBIN 10.3 g/dL (12.0-16.0); LYMPHOCYTES # (AUTO) 3.9 (1.0-3.2); LYMPHOCYTES % 22.9 % (18.0-39.1); MEAN CORPUSCULAR HEMOGLOBIN 27.6 pg (28-32); MEAN CORPUSCULAR HGB CONC 31.3 g/dL (31-35); MEAN CORPUSCULAR VOLUME 88.2 fL (81-99); MONOCYTES # (AUTO) 1.5 (0.2-0.8); MONOCYTES % 8.7 % (4.4-11.3); NEUTROPHILS % 64.8 % (38.7-80.0); PLATELET COUNT 582 x10e3/uL (140-360); RED BLOOD COUNT 3.73 x10e6/uL (3.6-5.1); RED CELL DISTRIBUTION WIDTH 16.1 % (11.7-14.4)
[2018-05-25 06:54] LABS: ALBUMIN 2.7 g/dL (3.5-5.0); ALBUMIN/GLOBULIN RATIO 0.7 (0.8-2.0); ANION GAP 12.9 mmol/L (8-16); CALCIUM 9.4 mg/dL (8.4-10.2); CREATININE, SERUM 3.41 mg/dL (0.57-1.11); POTASSIUM 3.9 mmol/L (3.5-5.1)
--- NOTE | 2018-05-25 07:09 | NUR ---
Received patient resting in bed. Respirations even and unlabored, no acute distress noted. Call light within reach, bed in the lowest position.
[2018-05-25 07:53] LABS: INR 2.4; PROTHROMBIN TIME 26.9 seconds (11.9-14.5)
[2018-05-25] MEDS: LEVALBUTEROL HCL SOLN NEBU 0.63 MG/3 ML NEB INH PRN ×2 (07:53→13:25)
[2018-05-25] MEDS: IPRATROPIUM BROMIDE 0.02% 2.5 ML NEB NEB PRN ×2 (07:53→13:25)
[2018-05-25] MEDS: DULOXETINE HCL 30 MG DELAYED RELEASE PO SCH (08:17)
[2018-05-25] MEDS: LIOTHYRONINE SODIUM 5 MCG TAB PO SCH (08:17)
[2018-05-25] MEDS: OXYBUTYNIN CHLORIDE 5 MG TAB PO SCH (08:17)
[2018-05-25] MEDS: BUSPIRONE HCL 5 MG TAB PO SCH ×2 (08:17→16:47)
[2018-05-25] MEDS: METOPROLOL SUCCINATE 50 MG TAB XL PO SCH (08:18)
[2018-05-25] MEDS: PANTOPRAZOLE SOD 40 MG TABEC PO SCH (08:18)
[2018-05-25] MEDS: ISOSORBIDE MONONITRATE 30 MG TAB CR PO SCH (08:18)
[2018-05-25] MEDS: ALPRAZOLAM 1 MG TAB PO SCH ×3 (08:18→21:18)
[2018-05-25] MEDS: TERBINAFINE 250 MG TAB PO SCH (08:18)
[2018-05-25] MEDS: AMLODIPINE BESYLATE 5 MG TAB PO SCH (08:18)
[2018-05-25] MEDS: NYSTATIN 100,000 UNITS/GM CRM 30GM TUBE TOP SCH (08:21)
[2018-05-25] MEDS: ERTAPENEM 1GM/NS 100ML 100 ML IV SCH (08:21)
--- NOTE | 2018-05-25 10:38 | Diagnostic Imaging Report ---
Abdomen, two views dated 05/25/2018 at 9:22 AM. History: Left ureteral stent. Comparison: CT scan of the abdomen and pelvis dated 03/15/2018 Findings: There is a left ureteral stent present without evidence of adjacent encrusted stones. Multiple clips in the right upper quadrant and right renal area are noted. 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 Multiple pelvic calcifications appear compatible with phleboliths. The intestinal gas pattern is nonobstructive. There no masses. Right gluteal calcification secondary to injection granulomas. The osseous structures reveal degenerative changes. IMPRESSION: No acute abdominal abnormality. Signed by: Dr. Fer Elizabeth DO on 05/25/2018 10:35 AM
--- NOTE | 2018-05-25 13:36 | NUR ---
CASE MANAGEMENT INITIAL ASSESSMENT Laser Beam Cutter to bedside to discuss plan of care with patient/family. CM/SW role and care transitions discussed. Anticipated discharge plan discussed along with duration of care. CM/SW discussed patients right to make decisions in care. CM/SW work hours given. Patient lives: AND 2 SONS Admit/Transfer: FROM HOME Hospital/ER visits since last admit:0 POA/Emergency contact: MONIQUE TOBIN [phone] Current/Previous Home Health: NONE PCP/Follow-up Care: DR ACOSTA Current/Previous DME: CPAP, GLUCOMETER, WHEELCHAIR, WALKER, CANE Medications (referring to index hospitalization or the first time you were in the hospital) a. Were changes made in your medications when you were in the hospital on [date of index hospitalization]? NO Note: If no or not sure, please skip to question d b. Did you understand the changes? N/A c. Were you able to obtain your new medications right away? N/A d. Were you able to take your medications like the doctor wanted you to? Yes e. Did the hospital give you an accurate, easy to understand list of medications when you left? Yes Scale of 1-10 how comfortable does patient feel with disease management in outpatient settin Other Services: NONE Employment Status: UNEMPLOYED Areas of Concerns: NONE Referral Needs: TO BE DETERMINED Education Needs: NONE IMM/BUSBY given and signed (if applicable): N/A Goal for discharge:TO RETURN HOME CM/SW left business card at the bedside with contact information. Name and number was also written on the patients whiteboard. Patient verbalized understanding of discussion. CM will follow-up with ongoing discharge and transition of care needs.
--- NOTE | 2018-05-25 19:40 | NUR ---
REPORT GIVEN TO ONCOMING NURSE, PATIENT IS RESTING IN BED. NO ACUTE DISTRESS NOTED. PAIN AT A TOLERABLE LEVEL. CALL LIGHT WITHIN REACH. BED IN THE LOWEST POSITION.
[2018-05-26] VITALS (8 sets, daily range): BP systolic 118–150; BP diastolic 58–72
[2018-05-26] MEDS: HYDROMORPHONE 2MG/ML 2 MG/ML ML IV PRN ×6 (02:40→20:45)
[2018-05-26] MEDS: FLUCONAZOLE 200 MG/100 ML 100 ML IV SCH (04:39)
[2018-05-26] MEDS: ONDANSETRON HCL INJ 2MG/ML 2ML 2 MG/ML VIAL IV PRN ×2 (05:26→13:05)
--- NOTE | 2018-05-26 08:30 | NUR ---
PT PT UP IN BED C/O PAIN MEDCICATED,CPAP IN PLACE.
[2018-05-26] MEDS: BUSPIRONE HCL 5 MG TAB PO SCH ×2 (09:00→17:00)
[2018-05-26] MEDS: PANTOPRAZOLE SOD 40 MG TABEC PO SCH (09:00)
[2018-05-26] MEDS: ISOSORBIDE MONONITRATE 30 MG TAB CR PO SCH (09:00)
[2018-05-26] MEDS: ALPRAZOLAM 1 MG TAB PO SCH ×3 (09:00→21:54)
[2018-05-26] MEDS: METOPROLOL SUCCINATE 50 MG TAB XL PO SCH (09:00)
[2018-05-26] MEDS: DULOXETINE HCL 30 MG DELAYED RELEASE PO SCH (09:00)
[2018-05-26] MEDS: TERBINAFINE 250 MG TAB PO SCH (09:00)
[2018-05-26] MEDS: LIOTHYRONINE SODIUM 5 MCG TAB PO SCH (09:00)
[2018-05-26] MEDS: OXYBUTYNIN CHLORIDE 5 MG TAB PO SCH (09:00)
[2018-05-26] MEDS: AMLODIPINE BESYLATE 5 MG TAB PO SCH (09:00)
[2018-05-26] MEDS: ERTAPENEM 1GM/NS 100ML 100 ML IV SCH (09:45)
[2018-05-26] MEDS: NYSTATIN 100,000 UNITS/GM CRM 30GM TUBE TOP SCH (10:00)
[2018-05-26] MEDS ORDERED: PHYTONADIONE 10 MG/ML AMP SC NR ×2 (13:30→19:15)
--- NOTE | 2018-05-26 17:46 | NUR ---
pt up in chair pain level 5 medicTED EARLIER,CPAP IN PLAce
[2018-05-26] MEDS: LEVALBUTEROL HCL SOLN NEBU 0.63 MG/3 ML NEB INH PRN (19:36)
[2018-05-26] MEDS ORDERED: TRAZODONE HCL 50 MG TAB PO PRN (23:15)
--- NOTE | 2018-05-26 23:19 | NUR ---
600mg of trazodone administered prn hs, [facility]
[2018-05-27] VITALS (7 sets, daily range): BP systolic 118–136; BP diastolic 59–69
[2018-05-27] MEDS: HYDROMORPHONE 2MG/ML 2 MG/ML ML IV PRN ×6 (00:25→21:30)
--- NOTE | 2018-05-27 03:53 | NUR ---
05/26/2018: 1900: Received patient from day nurse, patient is alert and oriented x3. patient is currently on room air, saturating above 97, patient has a cpap, at the bed side, patient informed about change of shift and the plan of care for the night verbalized understanding. safety and fall precautions maintained as per hospital protocol: bed in lowest position and locked, needed items beside bed and call pedersen placed close to patient, patient instructed to use it to call nurses for any assistance needed, patient verbalized understanding. 2200: patient rounded and stable. 05/27/2018: 0000: patient rounded and stable, 0200: patient rounded and stable.
[2018-05-27] MEDS: FLUCONAZOLE 200 MG/100 ML 100 ML IV SCH (05:31)
[2018-05-27 06:34] LABS: BASOPHILS # (AUTO) 0.1 (0.0-0.1); BASOPHILS % 0.4 % (0.0-1.0); EOSINOPHILS # (AUTO) 0.6 (0.0-0.4); EOSINOPHILS % 3.4 % (0.0-6.0); HEMATOCRIT 31.1 % (34.2-44.1); HEMOGLOBIN 9.8 g/dL (12.0-16.0); LYMPHOCYTES # (AUTO) 3.7 (1.0-3.2); MEAN CORPUSCULAR HEMOGLOBIN 28.1 pg (28-32); MEAN CORPUSCULAR HGB CONC 31.5 g/dL (31-35); MEAN CORPUSCULAR VOLUME 89.1 fL (81-99); MONOCYTES # (AUTO) 1.7 (0.2-0.8); MONOCYTES % 10.2 % (4.4-11.3); NEUTROPHILS # (AUTO) 10.1 (2.1-6.9); NEUTROPHILS % 62.4 % (38.7-80.0); PLATELET COUNT 569 x10e3/uL (140-360); RED BLOOD COUNT 3.49 x10e6/uL (3.6-5.1); RED CELL DISTRIBUTION WIDTH 16.1 % (11.7-14.4)
[2018-05-27 06:43] LABS: INR 1.64
--- NOTE | 2018-05-27 07:06 | NUR ---
patient endorsed to next shift for continuity of care.
[2018-05-27 07:07] LABS: ANION GAP 11.9 mmol/L (8-16); CALCIUM 9.1 mg/dL (8.4-10.2); POTASSIUM 3.9 mmol/L (3.5-5.1)
--- NOTE | 2018-05-27 07:25 | NUR ---
PT UP IN BED NO DISTRESS NOTED,SLEEPING,CPAP IN PALCE,
[2018-05-27] MEDS: DULOXETINE HCL 30 MG DELAYED RELEASE PO SCH (09:00)
[2018-05-27] MEDS: ISOSORBIDE MONONITRATE 30 MG TAB CR PO SCH (09:00)
[2018-05-27] MEDS: TERBINAFINE 250 MG TAB PO SCH (09:00)
[2018-05-27] MEDS: ALPRAZOLAM 1 MG TAB PO SCH ×3 (09:00→20:28)
[2018-05-27] MEDS: LIOTHYRONINE SODIUM 5 MCG TAB PO SCH (09:00)
[2018-05-27] MEDS: AMLODIPINE BESYLATE 5 MG TAB PO SCH (09:00)
[2018-05-27] MEDS: PANTOPRAZOLE SOD 40 MG TABEC PO SCH (09:00)
[2018-05-27] MEDS: ERTAPENEM 1GM/NS 100ML 100 ML IV SCH (09:00)
[2018-05-27] MEDS: BUSPIRONE HCL 5 MG TAB PO SCH ×2 (09:00→17:30)
[2018-05-27] MEDS: METOPROLOL SUCCINATE 50 MG TAB XL PO SCH (09:00)
[2018-05-27] MEDS: OXYBUTYNIN CHLORIDE 5 MG TAB PO SCH (09:00)
--- NOTE | 2018-05-27 10:00 | NUR ---
IV INFILTRATED,RESTARTED TO RT HAND 20 GAUGE TOLERATED WELL
[2018-05-27] MEDS: ONDANSETRON HCL INJ 2MG/ML 2ML 2 MG/ML VIAL IV PRN (12:40)
--- NOTE | 2018-05-27 15:33 | NUR ---
PT C/O BACK PAIN ,MEDICATED
[2018-05-27] MEDS: NYSTATIN 100,000 UNITS/GM CRM 30GM TUBE TOP SCH (17:30)
--- NOTE | 2018-05-27 18:28 | NUR ---
PT IN BED EYES CLOSED STATES PAIN LEVL 6 TO BACK MEDICATED,
--- NOTE | 2018-05-27 19:15 | NUR ---
patient received awake, alert, lying quietly in bed. no c/o pain noted. cpap in use. respirations even and unlabored. pm assessment complete. patient instructed to call for assistance when needed.
[2018-05-27] MEDS: IPRATROPIUM BROMIDE 0.02% 2.5 ML NEB NEB PRN (20:05)
[2018-05-27] MEDS: LEVALBUTEROL HCL SOLN NEBU 0.63 MG/3 ML NEB INH PRN (20:05)
[2018-05-28] VITALS (7 sets, daily range): BP systolic 123–153; BP diastolic 61–73
--- NOTE | 2018-05-28 | NUR ---
patient made aware of npo status at this time. patient verbalizes understanding of this. noted at the bedside.
[2018-05-28] MEDS: LEVALBUTEROL HCL SOLN NEBU 0.63 MG/3 ML NEB INH PRN ×4 (00:38→19:55)
[2018-05-28] MEDS: HYDROMORPHONE 2MG/ML 2 MG/ML ML IV PRN ×4 (03:27→20:00)
[2018-05-28] MEDS: FLUCONAZOLE 200 MG/100 ML 100 ML IV SCH (04:15)
[2018-05-28] MEDS: IPRATROPIUM BROMIDE 0.02% 2.5 ML NEB NEB PRN ×3 (07:04→19:55)
--- NOTE | 2018-05-28 07:21 | NUR ---
PATIENT IN BED RECEIVING NEB TREATMENT, NO RESPIRATORY DISTRESS. CPAP AT BED SIDE. BED IN LOWER POSITION, CALL LIGHT AT REACH. FAMILY AT BED SIDE.
--- NOTE | 2018-05-28 08:10 | NUR ---
PATIENT NOTED WITH O2 SAT AT 84% ON RA, NO RESPIRATORY DISTRESS OBSERVED. PATIENT STATED THAT IT IS BECAUSE SHE DOES NOT HAVE HER CPAP ON. CPAP APPLIED, O2 SAT AT 93% AT THIS TIME.
[2018-05-28] MEDS: BUSPIRONE HCL 5 MG TAB PO SCH ×2 (09:00→17:34)
[2018-05-28] MEDS: LIOTHYRONINE SODIUM 5 MCG TAB PO SCH (09:00)
[2018-05-28] MEDS: ALPRAZOLAM 1 MG TAB PO SCH ×3 (09:00→20:00)
[2018-05-28] MEDS ORDERED: SODIUM CHLORIDE 0.9% 250ML 250 ML ONE (09:18)
[2018-05-28] MEDS: NYSTATIN 100,000 UNITS/GM CRM 30GM TUBE TOP SCH (09:45)
[2018-05-28] MEDS: ERTAPENEM 1GM/NS 100ML 100 ML IV SCH (09:45)
[2018-05-28] MEDS: ONDANSETRON HCL INJ 2MG/ML 2ML 2 MG/ML VIAL IV PRN (09:55)
--- NOTE | 2018-05-28 11:30 | NUR ---
PATIENT REFUSED PHYSICAL THERAPY. EDUCATED ON THE IMPORTANCE OF GETTING OUT OF BED, BUT STILL REFUSED. IN BED WITH CALL LIGHT AT REACH.
--- NOTE | 2018-05-28 13:47 | NUR ---
CM SPOKE WITH PT'S ; THEY DO NOT WANT [facility] AT THIS TIME "WANT TO SEE WHAT SHE CAN DO WITH THERAPY HERE"
--- NOTE | 2018-05-28 14:00 | NUR ---
PATIENT OFF UNIT TO OR.
[2018-05-28] MEDS ORDERED: ONDANSETRON HCL INJ 2MG/ML 2ML 2 MG/ML VIAL ONE ×2 (14:21→18:36)
[2018-05-28] MEDS ORDERED: IOPAMIDOL 610MG/1ML 300 MG/ML VIAL IV ONE (14:49)
[2018-05-28] MEDS ORDERED: BELLADONNA/OPIUM 30 MG SUPP RC ONE (14:49)
[2018-05-28] MEDS ORDERED: FENTANYL CITRATE/PF 100MCG/2 ML INJ ONE (14:51)
--- NOTE | 2018-05-28 16:30 | NUR ---
PATIENT BACK TO UNIT FROM OR. REPORT RECEIVED FROM SABI MCFADDEN. PATIENT HAD A CYSTOSCOPY WITH THE REMOVAL OF LEFT STENT. ALERT AND VERBALLY RESPONSIVE. C/O ABDOMINAL PAIN, MEDICATED ORDERED. VOIDED LARGE AMOUNT OF YELLOW URINE, COMPLETE LINEN CHANGE. V/S 98.7-84-18-153/67 AND 92% ON RA. CALL LIGHT AT REACH.
[2018-05-28] MEDS: PANTOPRAZOLE SOD 40 MG TABEC PO SCH (17:33)
[2018-05-28] MEDS: AMLODIPINE BESYLATE 5 MG TAB PO SCH (17:33)
[2018-05-28] MEDS: DULOXETINE HCL 30 MG DELAYED RELEASE PO SCH (17:33)
[2018-05-28] MEDS: TERBINAFINE 250 MG TAB PO SCH (17:33)
[2018-05-28] MEDS: OXYBUTYNIN CHLORIDE 5 MG TAB PO SCH (17:33)
[2018-05-28] MEDS: ISOSORBIDE MONONITRATE 30 MG TAB CR PO SCH (17:33)
[2018-05-28] MEDS: METOPROLOL SUCCINATE 50 MG TAB XL PO SCH (17:34)
[2018-05-28] MEDS ORDERED: PROPOFOL IV EMULSION 10 MG/ML 20 ML VIAL ONE (18:36)
[2018-05-28] MEDS ORDERED: LIDOCAINE HCL 2% LOCAL INJ 5 ML SDV VIAL INJ ONE (18:36)
[2018-05-28] MEDS ORDERED: ROCURONIUM BROMIDE 10 MG/ML 5ML VIAL ONE (18:36)
[2018-05-28] MEDS ORDERED: DEXAMETHASONE SOD PHOS INJ 4 MG/ML VIAL ONE (18:36)
[2018-05-28] MEDS ORDERED: SUCCINYLCHOLINE 200 MG/10 ML SYR ONE (18:36)
[2018-05-28] MEDS ORDERED: SEVOFLURANE INHAL SOLN 250 ML PEN BTL ONE (18:36)
--- NOTE | 2018-05-28 19:00 | NUR ---
patient received awake, alert, lying quietly in bed. no c/o pain noted. pm assessment complete. family noted at the bedside. patient/family instructed to call for assistance when needed.
--- NOTE | 2018-05-28 19:17 | NUR ---
Nutrition Screen Note RD Recommendation for Physician: -Rec advancing to renal diet as medically appropriate Plan of Care: RD following, monitoring for tolerance and adequacy Nutrition reason for involvement: LOS Primary Diagnose(s): UTI PMH: obesity, hypertension, GERD Ht: 61in Wt: 298.44lb BMI: 56.4kg/m2 IBW: 105lb RD Assessment: (05/28) Chart reviewed. Labs and meds reviewed. 62yo F, who was admitted for UTI. Cystoscopy and removal of L stent was completed today. 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 Pt denied chewing/swallowing problems and nausea/vomiting. Pt reports feeling hungry and eager to eat. Anticipate pt able to meet nutritional need through po intake when diet is advanced. Will cont to monitor. Please consult as needed. Current Diet: NPO Malnutrition Evaluation (05/28) The patient does not meet criteria for a specified degree of malnutrition at this time. Will re-evaluate at follow-up as appropriate. Diet Education Needs Assessment: Diet education not indicated. Nutrition Care Level: low Signed: Nuria Haney, MS, RD, LD
--- NOTE | 2018-05-28 20:00 | NUR ---
new iv #20 gauge placed to right wrist x 1 stick. patient medicated with dilaudid 1 mg ivp for c/o back pain 09/29. will continue to monitor.
[2018-05-29] VITALS (7 sets, daily range): BP systolic 108–132; BP diastolic 55–63
[2018-05-29] MEDS: HYDROMORPHONE 2MG/ML 2 MG/ML ML IV PRN ×6 (01:00→21:00)
--- NOTE | 2018-05-29 01:00 | NUR ---
patient medicated with dilaudid 1 mg ivp for c/o lower back pain 09/29. will continue to monitor.
[2018-05-29] MEDS: FLUCONAZOLE 200 MG/100 ML 100 ML IV SCH (04:28)
--- NOTE | 2018-05-29 04:44 | NUR ---
patient medicated with dilaudid 1 mg ivp for c/o lower back pain 09/29. patient assisted with repositioning for comfort. remains at the bedside.
[2018-05-29 06:10] LABS: BASOPHILS # (AUTO) 0.1 (0.0-0.1); BASOPHILS % 0.4 % (0.0-1.0); HEMATOCRIT 32.8 % (34.2-44.1); LYMPHOCYTES # (AUTO) 1.6 (1.0-3.2); LYMPHOCYTES % 9.6 % (18.0-39.1); MEAN CORPUSCULAR HEMOGLOBIN 27.9 pg (28-32); MEAN CORPUSCULAR HGB CONC 30.5 g/dL (31-35); MEAN CORPUSCULAR VOLUME 91.6 fL (81-99); MONOCYTES # (AUTO) 0.6 (0.2-0.8); MONOCYTES % 3.3 % (4.4-11.3); NEUTROPHILS # (AUTO) 14.6 (2.1-6.9); NEUTROPHILS % 85.6 % (38.7-80.0); PLATELET COUNT 503 x10e3/uL (140-360); RED BLOOD COUNT 3.58 x10e6/uL (3.6-5.1); RED CELL DISTRIBUTION WIDTH 15.9 % (11.7-14.4)
[2018-05-29 06:39] LABS: ANION GAP 13.4 mmol/L (8-16); CALCIUM 9.4 mg/dL (8.4-10.2); CREATININE, SERUM 3.44 mg/dL (0.57-1.11); POTASSIUM 5.4 mmol/L (3.5-5.1)
--- NOTE | 2018-05-29 07:25 | NUR ---
PATIENT IN BED RESTING WITH CPAP IN PLACE, NO DISTRESS NOTED. ALL PERSONAL ITEMS CLOSE TO PATIENT. BED IN LOWER POSITION, CALL LIGHT AT REACH.
[2018-05-29] MEDS: ONDANSETRON HCL INJ 2MG/ML 2ML 2 MG/ML VIAL IV PRN (08:25)
[2018-05-29] MEDS: AMLODIPINE BESYLATE 5 MG TAB PO SCH (09:28)
[2018-05-29] MEDS: DULOXETINE HCL 30 MG DELAYED RELEASE PO SCH (09:28)
[2018-05-29] MEDS: PANTOPRAZOLE SOD 40 MG TABEC PO SCH (09:28)
[2018-05-29] MEDS: LIOTHYRONINE SODIUM 5 MCG TAB PO SCH (09:28)
[2018-05-29] MEDS: ERTAPENEM 1GM/NS 100ML 100 ML IV SCH (09:28)
[2018-05-29] MEDS: METOPROLOL SUCCINATE 50 MG TAB XL PO SCH (09:28)
[2018-05-29] MEDS: ALPRAZOLAM 1 MG TAB PO SCH ×3 (09:28→21:00)
[2018-05-29] MEDS: TERBINAFINE 250 MG TAB PO SCH (09:28)
[2018-05-29] MEDS: BUSPIRONE HCL 5 MG TAB PO SCH ×2 (09:28→17:31)
[2018-05-29] MEDS: NYSTATIN 100,000 UNITS/GM CRM 30GM TUBE TOP SCH (09:28)
[2018-05-29] MEDS: ISOSORBIDE MONONITRATE 30 MG TAB CR PO SCH (09:28)
[2018-05-29] MEDS: OXYBUTYNIN CHLORIDE 5 MG TAB PO SCH (09:28)
--- NOTE | 2018-05-29 09:30 | NUR ---
SPOKE WITH MD REGARDING ABNORMAL POTASSIUM, NEW ORDER RECEIVED TO REPEAT POTASSIUM.
--- NOTE | 2018-05-29 12:34 | Progress Note ---
DATE: SUBJECTIVE: The patient is admitted to the hospital for left chronic hydronephrosis. The patient underwent a cysto and removal of stent and left ureteroscopy with Dr. San, currently asymptomatic. The patient has history of chronic renal failure, hypertension, hyperlipidemia, chronic hypoxia with obesity hypoventilation syndrome. No chest pain. No shortness of breath. No nausea, vomiting, or diarrhea. No constipation. No rectal bleeding at this time. MEDICATIONS: The patient's medications include fluconazole for fungal infection, terbinafine, and nystatin. The patient is on ertapenem for urinary tract infection. Regular CV medications will be continued. OBJECTIVE: VITAL SIGNS: Today, temperature is 97.2, pulse of 68, respirations of 16, and blood pressure is 112/62. CVS: S1, S2, distant. Regular rate and rhythm. ABDOMEN: Nontender, nondistended. EXTREMITIES: No clubbing. Positive for edema. LABORATORY VALUES: White count is 17,000, hemoglobin of 10, and hematocrit of 32.3. Chemistry shows sodium of 136; potassium is 5.4, a jump up from yesterday; BUN of 37; creatinine of 3.44 with a GFR 14. Coags, 1.64 of INR. ASSESSMENT: 1. Urinary tract infection. 2. History of chronic kidney disease. 3. Hypertension. 4. Hyperlipidemia. 5. History of iron-deficiency anemia. 6. Chronic debility. Urine culture did grow Priscilla, so we will continue with antibiotics, ertapenem and fluconazole. For hyperkalemia, we will recheck her potassium today. DISPOSITION: Continue with antibiotics and possible discharge in 1-2 days. MD EMMA Kulkarni/MODL /[id number]
--- NOTE | 2018-05-29 19:30 | NUR ---
patient received awake, alert, lying quietly in bed. no c/o pain noted. pm assessment complete. noted at the bedside. patient instructed to call for assistance when needed.
[2018-05-29] MEDS: IPRATROPIUM BROMIDE 0.02% 2.5 ML NEB NEB PRN ×2 (19:35→23:05)
[2018-05-29] MEDS: LEVALBUTEROL HCL SOLN NEBU 0.63 MG/3 ML NEB INH PRN ×2 (19:35→23:05)
--- NOTE | 2018-05-29 21:00 | NUR ---
patient medicated with dilaudid 1 mg ivp for c/o lower back pain 09/29.
[2018-05-30] VITALS (8 sets, daily range): BP systolic 111–144; BP diastolic 55–78
[2018-05-30] MEDS: HYDROMORPHONE 2MG/ML 2 MG/ML ML IV PRN ×4 (04:07→20:04)
--- NOTE | 2018-05-30 04:07 | NUR ---
patient medicated with dilaudid 1 mg ivp for c/o pain at this time.
[2018-05-30] MEDS: FLUCONAZOLE 200 MG/100 ML 100 ML IV SCH (04:15)
[2018-05-30 05:51] LABS: BASOPHILS # (AUTO) 0.1 (0.0-0.1); BASOPHILS % 0.3 % (0.0-1.0); EOSINOPHILS # (AUTO) 0.2 (0.0-0.4); EOSINOPHILS % 1.1 % (0.0-6.0); HEMATOCRIT 31.1 % (34.2-44.1); HEMOGLOBIN 9.6 g/dL (12.0-16.0); LYMPHOCYTES # (AUTO) 3.4 (1.0-3.2); LYMPHOCYTES % 17.8 % (18.0-39.1); MEAN CORPUSCULAR HEMOGLOBIN 27.7 pg (28-32); MEAN CORPUSCULAR HGB CONC 30.9 g/dL (31-35); MEAN CORPUSCULAR VOLUME 89.6 fL (81-99); MONOCYTES # (AUTO) 1.2 (0.2-0.8); MONOCYTES % 6.4 % (4.4-11.3); NEUTROPHILS % 73.6 % (38.7-80.0); PLATELET COUNT 615 x10e3/uL (140-360); RED BLOOD COUNT 3.47 x10e6/uL (3.6-5.1); RED CELL DISTRIBUTION WIDTH 15.9 % (11.7-14.4)
[2018-05-30 06:10] LABS: ANION GAP 12.6 mmol/L (8-16); CREATININE, SERUM 3.53 mg/dL (0.57-1.11); POTASSIUM 4.6 mmol/L (3.5-5.1)
--- NOTE | 2018-05-30 07:15 | NUR ---
PATIENT IN BED RESTING WITH NO S/S OF DISCOMFORT. CPAP IN PLACE. BED IN LOWER POSITION, CALL LIGHT AT REACH.
[2018-05-30] MEDS: OXYBUTYNIN CHLORIDE 5 MG TAB PO SCH (09:56)
[2018-05-30] MEDS: ERTAPENEM 1GM/NS 100ML 100 ML IV SCH (09:56)
[2018-05-30] MEDS: PANTOPRAZOLE SOD 40 MG TABEC PO SCH (09:56)
[2018-05-30] MEDS: TERBINAFINE 250 MG TAB PO SCH (09:56)
[2018-05-30] MEDS: AMLODIPINE BESYLATE 5 MG TAB PO SCH (09:56)
[2018-05-30] MEDS: LIOTHYRONINE SODIUM 5 MCG TAB PO SCH (09:56)
[2018-05-30] MEDS: ISOSORBIDE MONONITRATE 30 MG TAB CR PO SCH (09:56)
[2018-05-30] MEDS: DULOXETINE HCL 30 MG DELAYED RELEASE PO SCH (09:56)
[2018-05-30] MEDS: DOCUSATE SODIUM 100 MG CAP PO SCH ×2 (09:56→17:25)
[2018-05-30] MEDS: BUSPIRONE HCL 5 MG TAB PO SCH ×2 (09:56→17:25)
[2018-05-30] MEDS: ALPRAZOLAM 1 MG TAB PO SCH ×3 (09:57→21:00)
[2018-05-30] MEDS: METOPROLOL SUCCINATE 50 MG TAB XL PO SCH (09:57)
[2018-05-30] MEDS: NYSTATIN 100,000 UNITS/GM CRM 30GM TUBE TOP SCH (09:57)
[2018-05-30] MEDS: ONDANSETRON HCL INJ 2MG/ML 2ML 2 MG/ML VIAL IV PRN ×3 (11:30→20:04)
--- NOTE | 2018-05-30 11:54 | NUR ---
PATIENT ASSISTED TO THE BED SIDE COMMODE AND BACK TO BED. HAD A LARGE BM. BED IN LOWER POSITION, CALL LIGHT AT REACH.
--- NOTE | 2018-05-30 16:05 | NUR ---
PATIENT IN BED RESTING, SON AT BED SIDE. CALL LIGHT AT REACH.
--- NOTE | 2018-05-30 19:40 | NUR ---
RECEIVE DPT IN BED .PT IS ON BIPAP PT HAS RT HAND 20 G WITH S/L .C/O PAIN CALL LIGHT WITH IN REACH FAMILY AT THE BEDSIDE.CONTINUE TO MONITOR
[2018-05-30] MEDS: IPRATROPIUM BROMIDE 0.02% 2.5 ML NEB NEB PRN (22:08)
[2018-05-30] MEDS: LEVALBUTEROL HCL SOLN NEBU 0.63 MG/3 ML NEB INH PRN (22:08)
[2018-05-31] VITALS (7 sets, daily range): BP systolic 131–145; BP diastolic 65–71
[2018-05-31] MEDS: FLUCONAZOLE 200 MG/100 ML 100 ML IV SCH (03:52)
[2018-05-31] MEDS ORDERED: HYDROMORPHONE 2MG/ML 2 MG/ML ML IV PRN (05:15)
--- NOTE | 2018-05-31 05:47 | NUR ---
PT RESTED DURING THE NIGHT .PT C/O PAIN AND GIVEN ORDERED PAIN MEDICATION .CALL LIGHT WITH IN REACH .CONTINUE TO MONITOR
--- NOTE | 2018-05-31 05:57 | NUR ---
PT RESTING .C/O PAIN X1 AND GIVEN ORDERED PAIN MEDICATION .FAMILY AT THE BEDSIDE .CALL LIGHT WITH IN REACH .CONTINUE TO MONITOR
--- NOTE | 2018-05-31 07:19 | NUR ---
REPORT GIVEN TO THE ON COMING NURSE
[2018-05-31] MEDS: IPRATROPIUM BROMIDE 0.02% 2.5 ML NEB NEB PRN (07:20)
[2018-05-31] MEDS: LEVALBUTEROL HCL SOLN NEBU 0.63 MG/3 ML NEB INH PRN (07:20)
[2018-05-31] MEDS: ONDANSETRON HCL INJ 2MG/ML 2ML 2 MG/ML VIAL IV PRN (07:41)
[2018-05-31] MEDS: METOPROLOL SUCCINATE 50 MG TAB XL PO SCH (08:40)
[2018-05-31] MEDS: ISOSORBIDE MONONITRATE 30 MG TAB CR PO SCH (08:40)
[2018-05-31] MEDS: BUSPIRONE HCL 5 MG TAB PO SCH ×2 (08:40→18:17)
[2018-05-31] MEDS: LIOTHYRONINE SODIUM 5 MCG TAB PO SCH (08:40)
[2018-05-31] MEDS: AMLODIPINE BESYLATE 5 MG TAB PO SCH (08:40)
[2018-05-31] MEDS: DULOXETINE HCL 30 MG DELAYED RELEASE PO SCH (08:40)
[2018-05-31] MEDS: DOCUSATE SODIUM 100 MG CAP PO SCH ×2 (08:40→18:17)
[2018-05-31] MEDS: OXYBUTYNIN CHLORIDE 5 MG TAB PO SCH (08:40)
[2018-05-31] MEDS: PANTOPRAZOLE SOD 40 MG TABEC PO SCH (08:40)
--- NOTE | 2018-05-31 08:40 | NUR ---
Pt received resting in bed with at bedside. Alert and oriented x4 , pt with discharge order but is claiming that she cannot care for herself. Oriented to staff and surroundings, encouraged to press call pedersen if help needed. Emotional support given. Fall precautions maintained. Will monitor
[2018-05-31] MEDS: TERBINAFINE 250 MG TAB PO SCH (08:41)
[2018-05-31] MEDS: ALPRAZOLAM 1 MG TAB PO SCH ×2 (08:41→18:17)
[2018-05-31] MEDS: ERTAPENEM 1GM/NS 100ML 100 ML IV SCH (09:00)
[2018-05-31] MEDS: NYSTATIN 100,000 UNITS/GM CRM 30GM TUBE TOP SCH (09:00)
--- NOTE | 2018-05-31 12:50 | NUR ---
Pt's son called to put pt back into bed. While nurse and pt's son were attempting to put pt back into bed, pt was jumpy, and stated that her "knees were buckling". Attempted but failed to put pt back into to bed. Pt assisted into bed with aid of 5 staff members. BP 143/71 HR 70 R [address] Torres notified, no special or given. Pt is for SNF but refusing stating she wants to go to rehab
--- NOTE | 2018-05-31 12:58 | NUR ---
Pt refused wheelchair. Assisted off unit by director of community center Addendum: 05/31/18 at 1921 by Mariano Paredes RN NOTE ENTERED BY JON
--- NOTE | 2018-05-31 15:46 | NUR ---
RECEIVED SNF ORDER, SPOKE WITH SON, PT WAS MEDICATED AND UNABLE TO PARTICIPATE IN CONVERSATION. CALLED ME BACK AND STATES HE REALLY FELT LIKE IF SHE CANNOT DO A IN PATIENT REHAB SHE WOULD BE BETTER OFF AT HOME AND WOULD PREFER HOME PT THERAPY SET UP. ALERTED CM AND MDR TEAM.
[2018-05-31] MEDS ORDERED: DIFLUCAN100 MG PO (18:46)
--- NOTE | 2018-05-31 19:00 | NUR ---
PT AND (YOHANNES) GIVEN DISCHARGE INSTRUCTIONS REGARDING MEDS, DIET, ACTIVITIES, AND FOLLOW UP APPOINTMENT. BOTH VERBALIZED UNDERSTANDING OF TEACHING. PT LEFT IN WHEELCHAIR TO 'S CAR. HOME HEALTH WILL BE SET UP BY JOB FOREMAN IN AM
--- NOTE | 2018-06-01 13:45 | Discharge Summary ---
DISCHARGE DIAGNOSES: 1. Sepsis secondary to urinary tract infection. 2. Funguria. 3. Chronic kidney disease, stage 4. HOSPITAL PROCEDURES: She had a stent removed by Dr. San. See discharge MAR. Follow up in 2 to 3 weeks. HISTORY OF PRESENT ILLNESS AND HOSPITAL COURSE: The patient is a lady who presented with evidence of sepsis secondary to urinary tract infection, where urine cultures grew out triny, so she was eventually placed on broad-spectrum antibiotics and diflucan, and was then narrowed down to just the Diflucan. While she was in the hospital, she was also seen by Dr. San who took out her stent without any complications, which helped to improve her overall pain. At the time of discharge, the patient was offered correction facility for rehabilitative purposes, but she turned that down, so she was then discharged home on p.o. Diflucan and follow up in 2 to 3 weeks with both az and Dr. San. Please see hospital chart for full details. MD RITA Michael/ZOE /[id number]
--- NOTE | 2018-06-02 08:50 | NUR ---
ORDERS ENTERED LATE EVENING ON DAY OF DISCHARGE FOR HOME HEALTH CM CALLED AND SPOKE WITH PT NO PREFERENCE ARRANGED HOME HEALTH WITH [facility] STAFF [phone] FAX [phone] SPOKE WITH BRIAN AT [facility] WHO STATES THEY TAKE HER INS AND SERVICE BLAS FAXED CLINICALS ; CONFIRMATION REC'D
== END 2018-05-31 19:04 | disposition home health service (06) | DRG 872 ==
LOC: FSED 17:57 → ERHOLD 20:43 → MED/SURG3 22:03
PROVIDERS: ADMIT Internal Medicine; ATTEND Internal Medicine
PROC: 0TP98DZ Removal of Intraluminal Device from Ureter, Via Natural or Artificial Opening Endoscopic (ICD-10-PCS; principal; 2018-05-23)
PROC: BT1F1ZZ Fluoroscopy of Left Kidney, Ureter and Bladder using Low Osmolar Contrast (ICD-10-PCS; 2018-05-23)
DX: A41.9 Sepsis, unspecified organism (principal); N18.4 Chronic kidney disease, stage 4 (severe); B37.49 Other urogenital candidiasis; Z68.43 Body mass index [BMI] 50.0-59.9, adult; N17.9 Acute kidney failure, unspecified; D68.9 Coagulation defect, unspecified; N13.30 Unspecified hydronephrosis; I12.9 Hypertensive chronic kidney disease with stage 1 through stage 4 chronic kidney disease, or unspecified chronic kidney disease; Z85.53 Personal history of malignant neoplasm of renal pelvis; G47.33 Obstructive sleep apnea (adult) (pediatric); I25.10 Atherosclerotic heart disease of native coronary artery without angina pectoris; D50.9 Iron deficiency anemia, unspecified; E66.01 Morbid (severe) obesity due to excess calories; R31.9 Hematuria, unspecified; E11.22 Type 2 diabetes mellitus with diabetic chronic kidney disease; R32 Unspecified urinary incontinence; Z96.0 Presence of urogenital implants
CPT/HCPCS: 36415; 74018; 74420; 80048; 80053; 81001; 81003; 83735; 84132; 85025; 85610; 87086; 87102; 87206; 94640; 97139; 99284; J0692; J1100; J1450; J2001; J2405; J3410; J3430; J7050

== ENCOUNTER → 2018-09-20 | Outpatient (CLI) | payer BC ==
[~2018-09-20] MED LIST changes: +DILAUDID2 MG PO; +HYDRALAZINE HCL25 MG PO; +METAXALONE800 MG PO
--- NOTE | 2018-09-20 18:49 | Diagnostic Imaging Report ---
EXAM: CT Abdomen and Pelvis WITHOUT contrast INDICATION: CALCULUS OF KIDNEY COMPARISON: Abdominal radiograph 05/25/2018, Abdominal CT 03/15/2018. TECHNIQUE: Abdomen and pelvis were scanned utilizing a multidetector helical scanner from the lung base to the pubic symphysis without administration of IV contrast. Absence of intravenous contrast decreases sensitivity for detection of focal lesions and vascular pathology. Coronal and sagittal reformations were obtained. Stone protocol is performed. IV CONTRAST: None ORAL CONTRAST: None COMPLICATIONS: None RADIATION DOSE: Total DLP: 1771 mGy*cm Estimated effective dose: (DLP x 0.015 x size factor) mSv CTDIvol has been reviewed. It is below the limits set by the Radiation Protocol Committee (RPC). Dose modulation, iterative reconstruction, and/or weight based adjustment of the mA/kV was utilized to reduce the radiation dose to as low as reasonably achievable. FINDINGS: LINES and TUBES: The left nephroureteral stent has been removed. LOWER THORAX: Coronary artery calcifications and aortic valve calcifications. Stable calcified granuloma in the left lower lobe. An additional tiny calcified granuloma in the lingula. HEPATOBILIARY: Diffuse decreased hepatic attenuation. No focal hepatic lesions. No biliary ductal dilation. GALLBLADDER: Surgical changes of cholecystectomy. SPLEEN: No splenomegaly. PANCREAS: No focal masses or ductal dilatation. ADRENALS: No adrenal nodules KIDNEYS/URETERS: Unchanged appearance of the surgical changes of right renal fossa. Stable 2.4 cm peripherally calcified aneurysm at the superior aspect of the left renal hilum, with internal curvilinear densities consistent with embolization coils. Mild left renal parenchymal volume loss. No hydronephrosis. No stones. GI TRACT: No abnormal distention, wall thickening, or evidence of bowel obstruction. Appendix is not clearly identified. There is however no fat stranding or adenopathy in the right lower quadrant to suggest appendicitis. PELVIC ORGANS/BLADDER: The uterus is absent. No adnexal abnormalities. LYMPH NODES: No lymphadenopathy. VESSELS: There is mild atherosclerotic disease in the aorta and major arterial branches. PERITONEUM / RETROPERITONEUM: No free air or fluid. BONES: Degenerative changes in the spine.. SOFT TISSUES: Chronic calcifications subcutaneous soft tissues of the right flank. IMPRESSION: 1. No left hydronephrosis or obstructing calculus. A left nephroureteral stent has been removed since 05/28/2018. 2. Stable changes of right nephrectomy. 3. 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 4. Hepatic steatosis. Signed by: Anand Stratton MD on 09/20/2018 6:45 PM
== END ==
LOC: CT 16:13
PROVIDERS: ATTEND Urology
DX: N20.0 Calculus of kidney (principal)
CPT/HCPCS: 74176

== ENCOUNTER 2018-11-09 16:41 | Emergency (ER) | payer BC ==
[~2018-11-09] VITALS: Ht 154.9 cm; Wt 134.3 kg
== END 2018-11-09 18:41 | disposition home or self-care (01) ==
LOC: ER 16:41
DX: T82.838A Hemorrhage due to vascular prosthetic devices, implants and grafts, initial encounter (principal); Y83.1 Surgical operation with implant of artificial internal device as the cause of abnormal reaction of the patient, or of later complication, without mention of misadventure at the time of the procedure; Y92.009 Unspecified place in unspecified non-institutional (private) residence as the place of occurrence of the external cause; I13.0 Hypertensive heart and chronic kidney disease with heart failure and stage 1 through stage 4 chronic kidney disease, or unspecified chronic kidney disease; N18.9 Chronic kidney disease, unspecified; I50.9 Heart failure, unspecified; J44.9 Chronic obstructive pulmonary disease, unspecified; E03.9 Hypothyroidism, unspecified; D64.9 Anemia, unspecified; E78.5 Hyperlipidemia, unspecified; I25.2 Old myocardial infarction; C80.1 Malignant (primary) neoplasm, unspecified; G89.29 Other chronic pain; M54.9 Dorsalgia, unspecified; E66.01 Morbid (severe) obesity due to excess calories; Z68.43 Body mass index [BMI] 50.0-59.9, adult; Z79.01 Long term (current) use of anticoagulants; Z79.02 Long term (current) use of antithrombotics/antiplatelets
CPT/HCPCS: 99284

== ENCOUNTER → 2018-12-14 | Day surgery (SDC) | payer BC ==
[2018-12-10 09:57] LABS: BASOPHILS # (AUTO) 0.1 (0.0-0.1); BASOPHILS % 0.8 % (0.0-1.0); EOSINOPHILS # (AUTO) 0.3 (0.0-0.4); EOSINOPHILS % 2.8 % (0.0-6.0); HEMATOCRIT 35.3 % (34.2-44.1); HEMOGLOBIN 11.3 g/dL (12.0-16.0); LYMPHOCYTES # (AUTO) 2.5 (1.0-3.2); LYMPHOCYTES % 21.6 % (18.0-39.1); MEAN CORPUSCULAR HEMOGLOBIN 29.6 pg (28-32); MEAN CORPUSCULAR VOLUME 92.4 fL (81-99); MONOCYTES # (AUTO) 0.9 (0.2-0.8); MONOCYTES % 7.8 % (4.4-11.3); NEUTROPHILS # (AUTO) 7.8 (2.1-6.9); NEUTROPHILS % 66.6 % (38.7-80.0); PLATELET COUNT 597 x10e3/uL (140-360); RED BLOOD COUNT 3.82 x10e6/uL (3.6-5.1); RED CELL DISTRIBUTION WIDTH 13.7 % (11.7-14.4)
[2018-12-10 10:12] LABS: INR 0.95; PROTHROMBIN TIME 13.2 seconds (11.9-14.5)
[2018-12-10 10:21] LABS: ALBUMIN/GLOBULIN RATIO 0.7 (0.8-2.0); CALCIUM 9.5 mg/dL (8.4-10.2); CREATININE, SERUM 2.74 mg/dL (0.57-1.11)
--- NOTE | 2018-12-10 16:35 | NUR ---
Dr. Galindo notified BUn 31, creatinine 2.[address] Galindo ordered Normal Saline 500cc/hr IV for 1 Liter prior to procedure.
[2018-12-14] VITALS (7 sets, daily range): BP systolic 136–182; BP diastolic 69–90
[~2018-12-14] VITALS: Ht 154.9 cm; Wt 109.8 kg
[~2018-12-14] MED LIST changes: +FENTANYL CITRATE/PF 100MCG/2 ML INJ ONE; +HEPARIN SOD/SOD CHLORIDE 2,000 ML ONE; +IOPAMIDOL 370 MG/ML 200 ML INFUS..BTL INJ ONE; +LIDOCAINE HCL 2% LOCAL 20 ML VIAL ONE; +MIDAZOLAM HCL 2 MG/2 ML VIAL ONE; +SODIUM CHLORIDE 0.9% 1000ML 1,000 ML ONE; +VERAPAMIL HCL 2.5 MG/ML 2 ML VIAL ONE
--- NOTE | 2018-12-14 09:00 | NUR ---
0900 bedside report received from Kerwin CELESTIN. Alert oriented and appropriate, PERRLA, respirations even and unlabored to room air. Pulses x4 extremeties equal and strong. Pedal pulses PT/DP x4. Cap fill brisk < 3 sec. Skin warm and dry integrity appears D/I. IV 20g to left ac and 999cchr for 1liter (total contrast 18cc) presents healthy w/o s/s of infiltration or complaint. Abdomen soft and supple. pt offered toileting, denies need to defecate.Void qs. No personal affects with patient. Family XXXXX. Pt and family verbalizes understanding of POC.. Currently w/o complaint of pain or need. 14cc in Tr band ok to reduce are at 10am and dc home ds/stacey
--- NOTE | 2018-12-14 10:00 | NUR ---
1000 RADIAL Compression removal: Initial Cuff volume 14 cc 10a -2cc Removed No hematoma/bleeding noted with normal neurovascular function. 1015a cc Removed No hematoma/ bleeding noted with normal neurovascular function. 1030a cc Removed No hematoma/bleeding noted with normal neurovascular function. 1045a cc Removed No hematoma/ bleeding noted with normal neurovascular function. Air removal completed. Stasis achieved sterile 2x2,Tegaderm, Coban dressing No hematoma, bleeding noted with normal neurovascular function. Wrist splint in place. Pt instructed on POC. Ds/Rn
--- NOTE | 2018-12-14 10:30 | NUR ---
1030 Pt meets DC criteria.Back to baseline orientation. Rt radial assessed for s/s of complication and presence of hematoma. Skin warm, dry, no discolor, and pulses present. IV removed from left ac, Distal tip appears intact. VS WNL. Pt denies pain, sob, or need at this time. Family at bedside. Review of discharge paperwork and follow up instructions. verbalized understanding. Pt to wheelchair and transported to front of hospital. Transferred to private vehicle under own strength w/o incident with DC paperwork in hand. -jeannine/rn
--- NOTE | 2018-12-14 16:00 | Operative Report ---
DATE OF PROCEDURE: 12/14/2018 SURGEON: Edouard Galindo MD INDICATIONS: Coronary artery disease, abnormal stress test. PROCEDURES PERFORMED: 1. Left heart catheterization, selective coronary angiography. 2. Deployment of right wrist TR band. COMPLICATIONS: None. BLOOD LOSS: Minimal. RECOMMENDATIONS: Medical therapy. DESCRIPTION OF PROCEDURE: Access obtained in the right radial artery using ultrasound guidance. A 5-Spanish sheath was placed. Coronary angiography demonstrated mild disease in the left main, calcification noted. Left anterior descending artery as well as diagonal bifurcating stents were widely patent. Remaining left anterior descending artery diffuse 30% to 50% stenosis. Circumflex was dominant vessel, diffuse 30% to 50% stenosis, ostial 50% stenosis. Left posterior descending artery ostial 60% to 70% stenosis. Right coronary artery was nondominant, mid 50% to 70% stenosis, 1.5 mm vessel. No intervention was deemed necessary. Right wrist TR band applied. The patient discharged home same day. MD BRAEDEN Oneill/MODL /[id number]
== END | disposition home or self-care (01) ==
LOC: CATH LAB 06:26
PROVIDERS: ATTEND Internal Medicine Interventional Cardiology
DX: I25.110 Atherosclerotic heart disease of native coronary artery with unstable angina pectoris (principal); I48.0 Paroxysmal atrial fibrillation; I11.0 Hypertensive heart disease with heart failure; I50.32 Chronic diastolic (congestive) heart failure; E78.5 Hyperlipidemia, unspecified; I87.2 Venous insufficiency (chronic) (peripheral); Z01.812 Encounter for preprocedural laboratory examination; Z88.1 Allergy status to other antibiotic agents; Z88.5 Allergy status to narcotic agent; Z88.0 Allergy status to penicillin; Z88.2 Allergy status to sulfonamides; Z88.8 Allergy status to other drugs, medicaments and biological substances; Z91.048 Other nonmedicinal substance allergy status; J45.909 Unspecified asthma, uncomplicated; D64.9 Anemia, unspecified; M19.90 Unspecified osteoarthritis, unspecified site; K31.84 Gastroparesis; Z83.3 Family history of diabetes mellitus; Z82.49 Family history of ischemic heart disease and other diseases of the circulatory system; Z95.5 Presence of coronary angioplasty implant and graft
CPT/HCPCS: 36415; 80053; 85025; 85610; 93454; C1769 ×2; C1887; J2001; J2250; J3010; J7030; Q9967

== ENCOUNTER → 2019-01-13 | Day surgery (SDC) | payer BC ==
[2019-01-06 11:43] LABS: BASOPHILS # (AUTO) 0.1 (0.0-0.1); BASOPHILS % 0.9 % (0.0-1.0); EOSINOPHILS # (AUTO) 0.4 (0.0-0.4); EOSINOPHILS % 3.4 % (0.0-6.0); HEMATOCRIT 37.9 % (34.2-44.1); LYMPHOCYTES # (AUTO) 3.1 (1.0-3.2); LYMPHOCYTES % 24.5 % (18.0-39.1); MEAN CORPUSCULAR HEMOGLOBIN 28.6 pg (28-32); MEAN CORPUSCULAR HGB CONC 31.7 g/dL (31-35); MEAN CORPUSCULAR VOLUME 90.5 fL (81-99); MONOCYTES # (AUTO) 1.2 (0.2-0.8); MONOCYTES % 9.5 % (4.4-11.3); NEUTROPHILS # (AUTO) 7.8 (2.1-6.9); NEUTROPHILS % 61.2 % (38.7-80.0); PLATELET COUNT 599 x10e3/uL (140-360); RED BLOOD COUNT 4.19 x10e6/uL (3.6-5.1); RED CELL DISTRIBUTION WIDTH 13.4 % (11.7-14.4)
[2019-01-06 11:53] LABS: INR 0.92; PROTHROMBIN TIME 12.9 seconds (11.9-14.5)
[2019-01-06 11:54] LABS: PARTIAL THROMBOPLASTIN TIME 31.3 seconds (23.8-35.5)
[2019-01-06 12:00] LABS: CALCIUM 10.1 mg/dL (8.4-10.2); CREATININE, SERUM 3.29 mg/dL (0.57-1.11)
--- NOTE | 2019-01-06 12:03 | Diagnostic Imaging Report ---
EXAMINATION: CHEST 2 VIEWS INDICATION: Pre-operative COMPARISON: Chest radiograph of 09/21/2018 FINDINGS: LINES/TUBES:Right chest port with catheter tip in the superior vena cava. LUNGS:The lungs are well-inflated. There is perihilar fullness and indistinctness of the pulmonary vasculature. PLEURA:No pleural effusion or pneumothorax. MEDIASTINUM:The cardiomediastinal silhouette is enlarged. BONES/SOFT TISSUES:No acute osseous injury. ABDOMEN:No free air under the diaphragm. IMPRESSION: Cardiomegaly and mild interstitial pulmonary edema. No focal pneumonia. Signed by: Piotr Oneil MD on 01/06/2019 12:00 PM
[~2019-01-13] MED LIST changes: +AMLODIPINE BESY10 MG PO; +HEPARIN SOD (PORCINE) 1000 UNIT/ML 30ML ONE; +HEPARIN SOD (PORCINE) 5,000 UNIT/ML VIAL ONE; -HEPARIN SOD/SOD CHLORIDE 2,000 ML ONE; +HYDROMORPHONE 1MG/1ML INJ ONE; -IOPAMIDOL 370 MG/ML 200 ML INFUS..BTL INJ ONE; +LABETALOL HCL 5 MG/ML 20ML VIAL ONE; +LIDOCAINE HCL 1% LOCAL INJ 20 ML VIAL ONE; -LIDOCAINE HCL 2% LOCAL 20 ML VIAL ONE; +LIDOCAINE HCL 2% LOCAL INJ 5 ML SDV VIAL INJ ONE; +METOCLOPRAMIDE HCL 10 MG/2ML VIAL ONE; +METOPROLOL ER PO; +ONDANSETRON HCL INJ 2MG/ML 2ML 2 MG/ML VIAL ONE; +PROPOFOL IV EMULSION 10 MG/ML 20 ML VIAL ONE; +PROTAMINE SULFATE 10 MG/ML 5 ML VIAL ONE; +REGLAN10 MG PO; +SEVOFLURANE INHAL SOLN 250 ML PEN BTL ONE; -SODIUM CHLORIDE 0.9% 1000ML 1,000 ML ONE; +SODIUM CHLORIDE 0.9% 500ML 500 ML ONE; +THROMBIN FOR SOLN 5,000 UNIT VIAL ONE; +VANCOMYCIN 1GM/NS 250 ML 250 ML ONE; -VERAPAMIL HCL 2.5 MG/ML 2 ML VIAL ONE; +WARFARIN SODIUM3 MG PO
[2019-01-13 12:55] LABS: ANION GAP 16.3 mmol/L (8-16); CALCIUM 9.8 mg/dL (8.4-10.2); CREATININE, SERUM 3.37 mg/dL (0.57-1.11); POTASSIUM 4.3 mmol/L (3.5-5.1)
[2019-01-13 17:05] VITALS: BP 144/75
--- NOTE | 2019-01-13 22:35 | Operative Report ---
DATE OF PROCEDURE: SURGEON: Jovon Braswlel MD PREOPERATIVE DIAGNOSES: Chronic renal insufficiency, stage 5, history of splenectomy, overweight, coronary artery disease. POSTOPERATIVE DIAGNOSES: Chronic renal insufficiency, stage 5, history of splenectomy, overweight, coronary artery disease. OPERATIVE PROCEDURE: Creation of left brachial artery to basilic vein AV fistula. CINDER BLOCK MASON: Jovon Braswell MD. BUTTON CUTTING MACHINE OPERATOR: Nursing staff. ANESTHESIA: General endotracheal. INDICATIONS: This is a 63-year-old lady with stage 5 chronic renal insufficiency. She is status post a right nephrectomy for renal cell carcinoma. Dialysis is felt to be imminent. Permanent dialysis access has been recommended. Noninvasive mapping at [facility] suggested that a left upper arm fistula either brachial basilic in 2 stages or possibly left brachiocephalic would be her best option. Prior to surgery, I described the operation to her. I told her that the risks of surgery would include , bleeding, infection, heart attack, stroke, pneumonia, amputation, permanent hand/limb muscle or nerve damage, hand/limb chronic pain, hand/limb amputation, a 10% to 15% chance of the fistula might not mature appropriately and require subsequent revision, further surgery, or replacement, etc. The patient stated that she understood, no further questions, and wanted to proceed. FINDINGS: Uneventful creation of left brachial artery to basilic vein AV fistula. The outflow basilic vein was 3.0 to 3.5 mm in diameter. It was left in situ for further maturation prior to a second-stage operation. Excellent thrill and bruit at the conclusion of operation. Radial artery pulse had a strong Doppler signal both prior to and at completion of surgery. PROCEDURE IN DETAIL: The patient was taken to the operative room on January 13, 2019, and placed supine up on the operating room table. General endotracheal anesthesia was smoothly induced. The left upper extremity was sterilely prepped and draped in the usual fashion using alcohol prewash and Betadine scrub and solution. The cephalic vein was quite difficult to palpate after the induction of anesthesia. The basilic vein was felt to be the best site for creation of a fistula. Incision was made just above the medial epicondyle of the elbow. Dissection was carried down to the cephalic vein, which was isolated and controlled. It was 3.0 to 3.5 mm in diameter. The brachial artery was dissected from its surrounding tissues at the same level. The patient was systemically heparinized using 1 mg/kg of heparin intravenously. The cephalic vein was divided distally. It was spatulated and accepted a 3.0 mm dilator without difficulty, although a 3.5 mm dilator just barely fit. There was good backbleeding. There was no evidence of a basilic vein stenosis more proximally. The brachial artery was occluded proximally and distally. It was opened longitudinally. A 3.0 mm dilator passed easily proximally and distally. There was excellent arterial inflow and backbleeding. End-to-side anastomosis of vein to artery was performed using 2 running 7-0 Prolene's. Prior to completing the anastomosis, a 3.0 mm dilator passed easily proximally and distally into the brachial artery and also into the outflow vein. The anastomosis was completed. The occluding instruments were removed. There was excellent hemostasis. It should be noted that the patient had been given a dose of heparin at 1 mg/kg intravenously prior to occlusion of any of the vascular structures. There was good hemostasis. There was an excellent palpable thrill in the outflow vein and a strong Doppler signal. A strong Doppler signal was also present at the radial artery and unchanged from prior to surgery. The wound was closed in layers using absorbable suture. Sterile dressings were applied. Sponge, instrument, and needle counts were correct both prior to and after wound closure. Independent search of the operative field by both operating surgeons and nurse revealed no retained instruments or sponges. The patient tolerated the procedure well, was taken to recovery area in stable condition. MD MARIUM Ortega/ZOE /[id number]
== END | disposition home or self-care (01) ==
LOC: OR 11:31
PROVIDERS: ATTEND Surgery
DX: I12.0 Hypertensive chronic kidney disease with stage 5 chronic kidney disease or end stage renal disease (principal); E11.22 Type 2 diabetes mellitus with diabetic chronic kidney disease; N18.5 Chronic kidney disease, stage 5; Z91.048 Other nonmedicinal substance allergy status; E66.01 Morbid (severe) obesity due to excess calories; Z68.41 Body mass index [BMI] 40.0-44.9, adult; Z85.528 Personal history of other malignant neoplasm of kidney; I25.10 Atherosclerotic heart disease of native coronary artery without angina pectoris; Z79.01 Long term (current) use of anticoagulants; E78.00 Pure hypercholesterolemia, unspecified; E11.43 Type 2 diabetes mellitus with diabetic autonomic (poly)neuropathy; K31.84 Gastroparesis; K21.9 Gastro-esophageal reflux disease without esophagitis; G47.33 Obstructive sleep apnea (adult) (pediatric); J44.9 Chronic obstructive pulmonary disease, unspecified; I25.2 Old myocardial infarction; Z88.1 Allergy status to other antibiotic agents; Z88.5 Allergy status to narcotic agent; Z88.0 Allergy status to penicillin; Z88.2 Allergy status to sulfonamides; Z88.8 Allergy status to other drugs, medicaments and biological substances; Z01.810 Encounter for preprocedural cardiovascular examination; Z01.812 Encounter for preprocedural laboratory examination; Z01.811 Encounter for preprocedural respiratory examination
CPT/HCPCS: 36415 ×2; 36821; 71046; 80048 ×2; 82948; 85025; 85610; 85730; 93005; J1170; J1644 ×2; J2001; J2250; J2405; J2704; J2765; J3010; J3370; J3490; J7040; J2720

== ENCOUNTER → 2019-02-11 | Outpatient (CLI) | payer BC ==
[~2019-02-11] MED LIST changes: -FENTANYL CITRATE/PF 100MCG/2 ML INJ ONE; -HEPARIN SOD (PORCINE) 1000 UNIT/ML 30ML ONE; -HEPARIN SOD (PORCINE) 5,000 UNIT/ML VIAL ONE; -HYDROMORPHONE 1MG/1ML INJ ONE; -LABETALOL HCL 5 MG/ML 20ML VIAL ONE; -LIDOCAINE HCL 1% LOCAL INJ 20 ML VIAL ONE; -LIDOCAINE HCL 2% LOCAL INJ 5 ML SDV VIAL INJ ONE; -METOCLOPRAMIDE HCL 10 MG/2ML VIAL ONE; -MIDAZOLAM HCL 2 MG/2 ML VIAL ONE; -ONDANSETRON HCL INJ 2MG/ML 2ML 2 MG/ML VIAL ONE; -PROPOFOL IV EMULSION 10 MG/ML 20 ML VIAL ONE; -PROTAMINE SULFATE 10 MG/ML 5 ML VIAL ONE; -SEVOFLURANE INHAL SOLN 250 ML PEN BTL ONE; -SODIUM CHLORIDE 0.9% 500ML 500 ML ONE; -THROMBIN FOR SOLN 5,000 UNIT VIAL ONE; -VANCOMYCIN 1GM/NS 250 ML 250 ML ONE
--- NOTE | 2019-02-11 10:29 | Diagnostic Imaging Report ---
EXAMINATION: CHEST 2 VIEWS INDICATION: Shortness of breath COMPARISON: Chest radiograph of 09/21/2018 FINDINGS: LINES/TUBES:Right chest port in unchanged position. LUNGS:The lungs are well-inflated. There is perihilar fullness and indistinctness of the pulmonary vasculature. PLEURA:No pleural effusion or pneumothorax. MEDIASTINUM:Cardiomediastinal silhouette is stably enlarged. BONES/SOFT TISSUES:No acute osseous injury. ABDOMEN:No free air under the diaphragm. IMPRESSION: Cardiomegaly and mild interstitial pulmonary edema. Signed by: Piotr Oneil MD on 02/11/2019 10:26 AM
--- NOTE | 2019-02-11 10:38 | Diagnostic Imaging Report ---
EXAM: Renal Ultrasound INDICATION: ^CALCULUS OF KIDNEY COMPARISON: CT abdomen and pelvis of 09/20/2018, renal ultrasound of 07/20/2017 TECHNIQUE: Transverse and longitudinal images of the kidneys and bladder were obtained. FINDINGS: Right Kidney: Status post right nephrectomy Left Kidney: Length: 12.5 cm Appearance: Increased echogenicity. Collecting system: No hydronephrosis Stones: 1.9 cm shadowing structure at renal pelvis corresponds with previously seen calcified aneurysm status post coiling. Cyst/Mass: 3.1 cm medial midpole cyst with internal septations. 1.5 cm simple mid pole cyst. Bladder: No mass or calculi. Ureteral jet not visualized. Prevoid volume estimate of 44.5 cc. IMPRESSION: Status post right nephrectomy. Increased left renal parenchymal echogenicity, compatible with medical renal disease. 1.9 cm shadowing structure at the left renal pelvis corresponds with previously seen calcified aneurysm status post coiling. Left renal cysts, most notably a 3.1 cm medial cyst with internal septations (Bosniak 2) Signed by: Piotr Oneil MD on 02/11/2019 10:34 AM
--- NOTE | 2019-02-11 10:40 | Diagnostic Imaging Report ---
Exam: KUB - 2 views Indication: Renal calculus Comparison: Renal ultrasound of the same day, CT abdomen and pelvis of 09/20/2018 Findings: Status post coiling of left renal calcified aneurysm. Status post right nephrectomy. No radiographically apparent renal calculi. Nonobstructive bowel gas pattern. No free air. Mild degenerative changes of the visualized spine and both hip joints. Phleboliths in the pelvis. Atherosclerotic arterial calcifications. Impression: No radiographically apparent renal calculi. Signed by: Piotr Oneil MD on 02/11/2019 10:37 AM
== END ==
LOC: US 08:52
PROVIDERS: ATTEND Urology
DX: N20.0 Calculus of kidney (principal)
CPT/HCPCS: 71046; 74018; 76770

== ENCOUNTER 2019-05-13 18:57 | Inpatient (IN) | payer BC ==
[~2019-05-13] VITALS: Ht 154.9 cm; Wt 100.2 kg
[2019-05-13] MEDS ORDERED: LEVALBUTEROL HCL SOLN NEBU 1.25 MG/3 ML NEB INH ONE (19:30)
[2019-05-13] MEDS ORDERED: IPRATROPIUM BROMIDE 0.02% 2.5 ML NEB NEB ONE (19:30)
[2019-05-13] MEDS ORDERED: METHYLPREDNISOLONE SOD SUCC 125 MG/2ML VIAL IV ONE (19:30)
[2019-05-13 19:50] LABS: BASOPHILS # (AUTO) 0.1 (0.0-0.1); BASOPHILS % 0.6 % (0.0-1.0); EOSINOPHILS % 0.2 % (0.0-6.0); HEMATOCRIT 40.5 % (34.2-44.1); HEMOGLOBIN 13.3 g/dL (12.0-16.0); LYMPHOCYTES # (AUTO) 0.7 (1.0-3.2); LYMPHOCYTES % 4.1 % (18.0-39.1); MEAN CORPUSCULAR HEMOGLOBIN 29.2 pg (28-32); MEAN CORPUSCULAR HGB CONC 32.8 g/dL (31-35); MEAN CORPUSCULAR VOLUME 88.8 fL (81-99); MONOCYTES # (AUTO) 0.9 (0.2-0.8); MONOCYTES % 5.3 % (4.4-11.3); NEUTROPHILS # (AUTO) 14.7 (2.1-6.9); NEUTROPHILS % 89.1 % (38.7-80.0); PLATELET COUNT 612 x10e3/uL (140-360); RED BLOOD COUNT 4.56 x10e6/uL (3.6-5.1); RED CELL DISTRIBUTION WIDTH 14.2 % (11.7-14.4)
--- NOTE | 2019-05-13 19:55 | Diagnostic Imaging Report ---
Examination: Single AP view of the chest. COMPARISON: Chest 2 views 02/11/2019 INDICATION: Respiratory distress IMPRESSION: Exam markedly limited due to patient rotation. 1. Lines and Tubes: Stable right upper chest Port-A-Cath. 2. Lungs are well-inflated. Patchy airspace opacity in the left upper lung and to a lesser degree left lower lung, as well as right lower lung, which may represent focal pneumonia in the appropriate clinical setting or pulmonary edema/fluid overload. 3. Enlarged cardiac silhouette Central pulmonary venous congestion 4. No acute bony abnormalities. Signed by: Dr. Jeevan Mora M.D. on 05/13/2019 7:52 PM
[2019-05-13 20:01] LABS: INR 1.56; PROTHROMBIN TIME 19.8 seconds (11.9-14.5)
[2019-05-13 20:03] LABS: PARTIAL THROMBOPLASTIN TIME 83.6 seconds (23.8-35.5)
[2019-05-13 20:08] LABS: ALBUMIN 2.7 g/dL (3.5-5.0); ALBUMIN/GLOBULIN RATIO 0.6 (0.8-2.0); CALCIUM 9.2 mg/dL (8.4-10.2); CREATININE, SERUM 3.36 mg/dL (0.57-1.11)
[2019-05-13] MEDS ORDERED: DICYCLOMINE HCL10 MG PO (20:31)
[2019-05-13] MEDS ORDERED: METOPROLOL SUC100 MG PO (20:35)
[2019-05-13] MEDS ORDERED: AZITHROMYCIN 500MG/NS 250 ML 250 ML IV SCH (20:45)
[2019-05-13] MEDS ORDERED: FUROSEMIDE INJ 10 MG/ML 4 ML VIAL IV ONE (20:45)
[2019-05-13] MEDS ORDERED: LEVALBUTEROL HCL SOLN NEBU 1.25 MG/3 ML NEB INH PRN (21:00)
[2019-05-13] MEDS ORDERED: SODIUM CHLORIDE FLUSH 10 ML SYR IV PRN (21:00)
[2019-05-13] MEDS ORDERED: LEVOFLOXACIN 250MG/D5W 50ML 50 ML IV SCH (21:15)
[2019-05-13] MEDS: HYDROMORPHONE 1MG/1ML INJ IV PRN (23:19)
[2019-05-13] MEDS: ONDANSETRON HCL INJ 2MG/ML 2ML 2 MG/ML VIAL IV PRN (23:19)
[2019-05-13] MEDS: IPRATROPIUM BROMIDE 0.02% 2.5 ML NEB NEB SCH (23:30)
[2019-05-14] VITALS (26 sets, daily range): BP systolic 90–165; BP diastolic 68–122
[2019-05-14] MEDS ORDERED: METOPROLOL TARTRATE INJ 1 MG/ML VIAL IV ONE
[2019-05-14] MEDS ORDERED: ACETAMINOPHEN 325 MG TAB PO ONE (00:15)
[2019-05-14 00:39] LABS: BILIRUBIN,URINE 1+ (NEGATIVE); CLARITY,URINE CLOUDY (CLEAR); COLOR,URINE AMBER (YELLOW); KETONES,URINE NEGATIVE (NEGATIVE); LEUKOCYTE ESTERASE ,URINE NEGATIVE (NEGATIVE); NITRITE,URINE NEGATIVE (NEGATIVE); PROTEIN,URINE DIPSTICK 3+ (NEGATIVE); URINE UROBILINOGEN 0.2 mg/dL (0.2 - 1)
[2019-05-14 00:55] LABS: AMORPHOUS SEDIMENT,URINE MANY (FEW); BACTERIA,URINE MANY /HPF; EPITHELIAL CELLS,URINE FEW /LPF; RBC,URINE 21-50 /HPF (0-5)
[2019-05-14] MEDS ORDERED: DIGOXIN INJ 0.25 MG/ML 2 ML AMP IV ONE (01:00)
[2019-05-14] MEDS ORDERED: AMIODARONE HCL 150MG 100 ML IV SCH (02:00)
[2019-05-14] MEDS ORDERED: AMIODARONE 900MG 500 ML IV ONE (03:12)
[2019-05-14] MEDS ORDERED: AMIODARONE HCL 100 ML IV ONE (03:12)
[2019-05-14] MEDS: AMIODARONE HCL 360MG 200 ML IV SCH ×3 (03:30→09:30)
[2019-05-14] MEDS: IPRATROPIUM BROMIDE 0.02% 2.5 ML NEB NEB SCH ×6 (03:40→23:00)
[2019-05-14 05:10] LABS: BASOPHILS # (AUTO) 0.1 (0.0-0.1); BASOPHILS % 0.4 % (0.0-1.0); EOSINOPHILS # (AUTO) 0.1 (0.0-0.4); EOSINOPHILS % 0.9 % (0.0-6.0); HEMATOCRIT 40.7 % (34.2-44.1); HEMOGLOBIN 13.1 g/dL (12.0-16.0); LYMPHOCYTES # (AUTO) 0.5 (1.0-3.2); LYMPHOCYTES % 3.7 % (18.0-39.1); MEAN CORPUSCULAR HEMOGLOBIN 29.3 pg (28-32); MEAN CORPUSCULAR HGB CONC 32.2 g/dL (31-35); MEAN CORPUSCULAR VOLUME 91.1 fL (81-99); MONOCYTES # (AUTO) 0.3 (0.2-0.8); MONOCYTES % 1.8 % (4.4-11.3); NEUTROPHILS # (AUTO) 12.6 (2.1-6.9); NEUTROPHILS % 92.7 % (38.7-80.0); PLATELET COUNT 604 x10e3/uL (140-360); RED BLOOD COUNT 4.47 x10e6/uL (3.6-5.1)
[2019-05-14 05:37] LABS: CREATINE KINASE MB 1.2 ng/mL (0-5.0)
[2019-05-14 05:58] LABS: ALBUMIN 2.5 g/dL (3.5-5.0); ALBUMIN/GLOBULIN RATIO 0.6 (0.8-2.0); ANION GAP 15.3 mmol/L (8-16); CALCIUM 9.4 mg/dL (8.4-10.2); CREATININE, SERUM 3.65 mg/dL (0.57-1.11); POTASSIUM 4.3 mmol/L (3.5-5.1)
--- NOTE | 2019-05-14 06:19 | Diagnostic Imaging Report ---
EXAMINATION: CHEST SINGLE (PORTABLE) COMPARISON: Chest x-ray 05/13/2019 INDICATION: ^PULMONARY EDEMA ^[id number] ^0520 DISCUSSION: Frontal view of the chest obtained at 0527 hours. HEART AND MEDIASTINUM: Stable cardiomegaly and pulmonary vascular congestion. LINES: MediPort catheter terminates in the SVC LUNGS: Airspace opacities throughout the left lung and in the right mid and lower lung zones are similar. PLEURA: No large effusions or pneumothorax. BONES AND SOFT TISSUES: No focal osseous lesion. The soft tissues are normal. IMPRESSION: Multifocal airspace opacities and vascular congestion are stable. No new cardiopulmonary findings. Signed by: Dr. Jacky Lazo MD on 05/14/2019 6:17 AM
[2019-05-14] MEDS ORDERED: REPATHA 140 MG SC SCH (07:15)
[2019-05-14] MEDS ORDERED: NON-FORMULARY MEDICATION (Ondansetron Hcl (Zofran) 4 MG) PO PRN (07:15)
[2019-05-14] MEDS ORDERED: HYDROXYZINE HCL 25 MG TAB PO PRN (07:15)
[2019-05-14] MEDS: HYDROMORPHONE HCL 2 MG TAB PO PRN (07:47)
--- NOTE | 2019-05-14 08:15 | Consultation ---
DATE OF CONSULTATION: Pulmonary Critical Care Consultation CHIEF COMPLAINT: Dyspnea and malaise. HISTORY OF PRESENT ILLNESS: The patient is a 63-year-old woman. She has a history of stage IV renal failure and is followed by Dr. Orozco of Nephrology. She was admitted last year with a urinary tract infection and Priscilla in her urine. She also has a history of Clostridium difficile colitis about a year ago. The patient now comes in complaining of worsening dyspnea. She has cough as well as some wheezing. She denies fevers or chest pain. Yesterday, in the emergency department, she was found to have pulmonary edema. She was given some Lasix and started on BiPAP. She subsequently developed atrial fibrillation and required loading with amiodarone. She also received Levaquin and was cultured for possible sepsis. PAST MEDICAL HISTORY: 1. Stage IV renal failure. 2. History of myocardial infarction and atrial fibrillation. 3. History of thyroid disease. 4. History of anemia. 5. Sciatica and chronic sleep problems. 6. Obstructive sleep apnea. PAST SURGICAL HISTORY: 1. Status post appendectomy. 2. Status post hysterectomy. 3. Status post back surgery. 4. Status post bladder stent placement in February 2019 that was subsequently removed three months later. ALLERGIES: THE PATIENT IS ALLERGIC TO MULTIPLE ANTIBIOTICS INCLUDING; PENICILLIN, SULFA, KEFLEX, ERYTHROMYCIN, PRIMAXIN, AND TETRACYCLINE. SOCIAL HISTORY: The patient is not a drinker or smoker. FAMILY HISTORY: Noncontributory. REVIEW OF SYSTEMS: The patient reports some malaise and fatigue. She does not have fever. She has no headache or neck pain. She did have difficulty breathing as well as cough. She did not have chest pain. She had no nausea or vomiting. She had no diarrhea. She does complain of pain in her back radiating to her hip that she attributes to her sciatica. She also has knee pain. PHYSICAL EXAMINATION: VITAL SIGNS: The patient is now afebrile. The blood pressure is 144/95, heart rate is 104. The respiratory rate is 19, and she is on BiPAP. HEENT: Shows no facial swelling or erythema. The oropharynx is normal. LYMPHATIC: Shows no submandibular, cervical, or supraclavicular adenopathy. CARDIAC: Reveals an irregularly irregular rhythm with normal S1 and S2. LUNGS: Auscultation of lungs reveals decreased breath sounds and crackles at the bases. ABDOMEN: Soft and nontender. There is no rebound or guarding. EXTREMITIES: Show no leg edema or calf tenderness. There is no cyanosis or clubbing. SKIN: Shows no rashes. NEUROLOGIC: Shows no focal abnormalities. RADIOGRAPHIC DATA: Chest x-ray shows multifocal airspace opacities consistent with pulmonary edema. LABORATORY DATA: White blood cell count is 13.6 and hemoglobin is 13.1. The platelet count is 604. BUN to creatinine ratio is 33 to 3.65 and the other electrolytes are within normal limits. Albumin is 2.5. PT is 19.8. Urinalysis shows 11 to 20 white blood cells. IMPRESSION: 1. Asfyw-tm-zmqilnd renal failure with uremia and volume overload. 2. Atrial fibrillation with rapid ventricular response. 3. Sciatic and chronic back and hip pain. 4. Remote history of Clostridium difficile colitis. 5. Urinary tract infection. 6. Obstructive sleep apnea. 7. Pmlnb-[id number]-nvcxvag systolic congestive heart failure. PLAN: 1. Continue IV Lasix. 2. Nephrology consultation for possible dialysis. 3. Cardiology consultation. 4. Continue antibiotics for now and await culture results. 5. Wean BiPAP to nasal cannula. 6. Case discussed with the patient, nursing and Dr. Peters. MD ANDRA Haque/ZOE /[id number]
[2019-05-14] MEDS: HYDRALAZINE HCL 25 MG TAB PO SCH ×2 (08:17→16:13)
[2019-05-14] MEDS: DICYCLOMINE HCL 10 MG CAP PO SCH ×2 (08:20→16:13)
[2019-05-14] MEDS: OXYBUTYNIN CHLORIDE 5 MG TAB PO SCH ×2 (08:20→16:14)
[2019-05-14] MEDS: DULOXETINE HCL 30 MG DELAYED RELEASE PO SCH ×2 (08:20→16:13)
[2019-05-14] MEDS: ISOSORBIDE MONONITRATE 30 MG TAB CR PO SCH ×2 (08:21→16:14)
[2019-05-14] MEDS: AMLODIPINE BESYLATE 10 MG TAB PO SCH (08:21)
[2019-05-14] MEDS: METOPROLOL SUCCINATE 50 MG TAB XL PO SCH (08:22)
[2019-05-14] MEDS: CLOPIDOGREL BISULFATE 75 MG TAB PO SCH (08:22)
[2019-05-14] MEDS: METOCLOPRAMIDE HCL 10 MG TAB PO SCH ×3 (08:22→20:32)
[2019-05-14] MEDS ORDERED: METAXALONE 800 MG TAB PO SCH (09:00)
[2019-05-14] MEDS ORDERED: NON-FORMULARY MEDICATION (Metoprolol Succinate 1 TAB) PO SCH (09:00)
[2019-05-14] MEDS ORDERED: OXYBUTYNIN CHLORIDE 5 MG TAB PO SCH (09:00)
[2019-05-14] MEDS ORDERED: PANTOPRAZOLE SOD 40 MG TABEC PO SCH (09:00)
[2019-05-14] MEDS ORDERED: CLOPIDOGREL BISULFATE 75 MG TAB PO SCH (09:00)
[2019-05-14] MEDS ORDERED: NON-FORMULARY MEDICATION ([Linzess] 290 MCG) PO SCH (09:00)
[2019-05-14] MEDS ORDERED: LIOTHYRONINE SODIUM 25 MCG PO SCH (09:00)
[2019-05-14] MEDS ORDERED: METOPROLOL PO SCH (09:00)
[2019-05-14] MEDS ORDERED: DULOXETINE HCL 30 MG PO SCH ×2 (09:00)
[2019-05-14] MEDS ORDERED: FUROSEMIDE INJ 10 MG/ML 4 ML VIAL IV SCH (09:00)
[2019-05-14] MEDS ORDERED: BUMETANIDE 1 MG TAB PO SCH (09:00)
[2019-05-14] MEDS ORDERED: ALPRAZOLAM 1 MG TAB PO SCH (09:00)
[2019-05-14] MEDS: TERBINAFINE 250 MG TAB PO SCH (09:11)
[2019-05-14] MEDS: LINACLOTIDE 145 MCG CAPSULE PO SCH ×2 (09:11→16:14)
[2019-05-14] MEDS: PANTOPRAZOLE SOD 40 MG TABEC PO SCH (09:11)
[2019-05-14] MEDS: LIOTHYRONINE SODIUM 5 MCG TAB PO SCH (09:11)
[2019-05-14] MEDS: HYDROMORPHONE 1MG/1ML INJ IV PRN ×2 (09:14→19:56)
--- NOTE | 2019-05-14 12:31 | History and Physical ---
HOSPITAL COURSE: This is a 63-year-old female who comes in with shortness of breath. HISTORY OF PRESENT ILLNESS: Ms. Tracy Preciado is with history of COPD, hypertension, chronic kidney disease stage 4, needed dialysis, was in her usual state of health until about 10 days ago the patient started to have some shortness of breath, went to the clinic and was seen by Dr. Torres, COPD exacerbation diagnosis, the patient was given some antibiotics and sent home. The patient still had increase in dyspnea with orthopnea and PND. The patient did not have any chest pains, however, calf pain, foot swelling, and anxiety were noted. The patient came into the emergency room and was admitted to the hospital for acute on chronic congestive heart failure and COPD exacerbation. PAST MEDICAL HISTORY: History of COPD, history of hypertension, history of hyperlipidemia, history of irritable bowel syndrome, history of atrial fibrillation, history of chronic constipation, history of low back pain, history of anxiety. The patient also has chronic UTIs, fungal infections, history of sleep apnea, and history of mixed connective tissue disorders and history of chronic anemia and spinal stenosis. PAST SURGICAL HISTORY: History of 3 C sections, abdominal hysterectomy, the patient had cubital tunnel repair, cyst in the gallbladder, removal in and the patient has had a colonoscopy in 2004. ALLERGIES: ALLERGIC TO ADHESIVE TAPE, AUGMENTIN, CODEINE, DEMEROL, GABAPENTIN, KEFLEX, MORPHINE, MYCINS, PENICILLIN, PRIMAXIN, ROBAXIN, SULFA, AND TETRACYCLINE. OTHER MEDICAL HISTORY: Includes arthritis and heart disease and sleep apnea. PAST SURGICAL HISTORY: Includes nephrectomy, splenectomy, appendectomy in 1965 and tonsillectomy and adenoidectomy in 1968. SOCIAL HISTORY: No EtOH. No IV drug abuse. No history of smoking. The patient has a history of secondhand smoking. REVIEW OF SYSTEMS: Negative for chest pain. Positive for shortness of breath. No nausea. No vomiting or diarrhea. No constipation. No rectal bleeding. No hematochezia. No hematemesis. Possible orthopnea or PND. PHYSICAL EXAMINATION: GENERAL: The patient is a 63-year-old female, obese, using BiPAP at this time. HEENT: Normocephalic, atraumatic. CVS: S1 and S2 irregular, tachy. ABDOMEN: Nontender, nondistended. EXTREMITIES: Positive for edema. LABORATORY VALUES: White count is 16,000 on arrival yesterday, hemoglobin of 13.3, hematocrit of 40.5, neutrophil count was 89.1. Chemistry shows sodium of 132, potassium of 4.3, BUN of 33, creatinine of 3.65. ALT and AST within normal limits. BNP was 1412, currently is 1680. Troponins two sets have been negative. INR is 1.56. Patient is on warfarin. ASSESSMENT: 1. Ms. Tracy Preciado with acute on chronic congestive heart failure. Plan will be to gently diurese the patient, noting the creatinine is elevated. 2. Chronic obstructive pulmonary disease exacerbation. Continue on antibiotic and the patient is on BiPAP. 3. Acute respiratory failure, on BiPAP. 4. History of chronic kidney disease 4, consult with Dr. Moore will be done. 5. Atrial fibrillation with rapid ventricular response. Consult with Dr. Hicks will be done and for respiratory issues, Dr. Archer is on for ICU. PLAN: Restart her home medications. Continue to monitor the patient. Strict I's and O's, daily weights, and also continue monitoring her kidneys on a regular basis. The patient will be kept in the ICU until stabilized. Continue monitoring her lab and a thyroid panel to be done and rate control will be by metoprolol. INRs will be followed daily. Further recommendation per clinical course. We will continue to monitor the patient. MD ANGELA KulkarniJ/MODL /[id number]
[2019-05-14] MEDS: FUROSEMIDE INJ 10 MG/ML 4 ML VIAL IV SCH ×2 (14:18→21:35)
[2019-05-14] MEDS: ALPRAZOLAM 1 MG TAB PO PRN (14:21)
[2019-05-14 14:58] LABS: CREATINE KINASE MB 1.2 ng/mL (0-5.0)
[2019-05-14 15:12] LABS: FREE THYROXINE INDEX 2.019 (1.4-3.8); THYROID STIMULATING HORMONE 0.409 uIU/mL (0.350-4.940)
[2019-05-14] MEDS: APIXABAN 5 MG TABLET PO SCH (16:14)
--- NOTE | 2019-05-14 16:29 | NUR ---
Nutrition Screen Note RD Recommendation for Physician: -Rec adding ADA 2000 to renal diet -Monitor daily weight Plan of Care: RD following, monitoring for tolerance and adequacy Nutrition reason for involvement: Diagnosis CHF, MST Primary Diagnose(s): acute on chronic congestive heart failure, COPD exacerbation, CKD stage IV PMH: COPD, HTN, HLD, IBS, AFib, chronic constipation, low back pain, anxiety, sleep apnea Ht: 61in Wt: 248.06lb BMI: 46.9kg/m2 IBW: 105lb +/- 10% RD Assessment: (05/14) Chart reviewed. Labs and meds reviewed. 63yo F, who was admitted for CHF. Currently on lasix. Stage IV CKD - not on dialysis. Visited pt in the room. Pt reported decreased appetite for 2 years due to gastroparesis. Pt contributed her weight gain to fluid retention. Pt denied any nausea or vomiting. No known food allergy. Pt denied any chewing or swallowing difficulty. Pt appeared to be morbidly obese and on strict I&O. Obtained food preferences. Will re-evaluate when pt feels better. Current Diet: Renal diet Malnutrition Evaluation (05/14) The patient does not meet criteria for a specified degree of malnutrition at this time. Will re-evaluate at follow-up as appropriate. Diet Education Needs Assessment: Diet education not indicated. Nutrition Care Level: low Signed: Nuria Haney MS, RD, LD
--- NOTE | 2019-05-14 17:47 | Consultation ---
DATE OF CONSULTATION: 05/14/2019 Cardiology consultation REQUESTING PHYSICIAN: Enrique Peters MD. REASON FOR CONSULTATION: Atrial fibrillation. HISTORY OF PRESENT ILLNESS: This is a 63-year-old woman, well known to my service with coronary artery disease, paroxysmal atrial fibrillation, chronic diastolic heart failure, diabetes mellitus, hypertension, hyperlipidemia, chronic kidney disease, and renal cell carcinoma status post right nephrectomy, who presents with complaints of increasing shortness of breath. The patient has had increasing lower extremity swelling as well as shortness of breath for the last few weeks. She was seen in my office a week and a half ago and was complaining of worsening edema and shortness of breath with exertion as well as worsening orthopnea. Her diuretics were increased at that visit in addition she saw Dr. Torres and was given antibiotics. She did not have improvement in her symptoms and so she presented to the ER for further evaluation. In the ER, she developed atrial fibrillation with rapid ventricular response while receiving Xopenex and was admitted to the ICU for further care. The patient denies chest pain or shortness of breath. She is somewhat confused. REVIEW OF SYSTEMS: Negative except as per HPI. PAST MEDICAL HISTORY: As above. PAST SURGICAL HISTORY: 1. Right nephrectomy. 2. Splenectomy. 3. Appendectomy. 4. Cholecystectomy. 5. section x2. ALLERGIES: PLEASE SEE EMR. MEDICATIONS: Please see medication list. SOCIAL HISTORY: No tobacco, alcohol, or illicit drugs. FAMILY HISTORY: Pertinent for mother with cardiomegaly. PHYSICAL EXAMINATION: VITAL SIGNS: Temperature 98.2 degrees, pulse 116, respiratory rate 24, blood pressure 125/101, and oxygen saturation 92% sat on 6 L nasal cannula. GENERAL: Morbidly obese, woman, awake, somewhat confused. HEENT: Normocephalic, atraumatic. Pupils equal. No scleral icterus. NECK: Supple. No thyromegaly or cervical lymphadenopathy. No carotid bruits. LUNGS: Clear to auscultation bilaterally. No wheezes or crackles. CARDIOVASCULAR: Tachycardic. Irregularly irregular. No murmur. Normal S1, S2. ABDOMEN: Soft, nontender. EXTREMITIES: 1+ pitting edema present bilaterally. NEUROLOGIC: Nonfocal exam. LABORATORY DATA: WBC 13.63, hemoglobin 13.1, hematocrit 40.7, and platelets 604. Sodium 132, potassium 4.3, chloride 99, CO2 of 22 BUN 33, and creatinine 3.65. BNP 1680. Troponin 0.062. Telemetry, atrial fibrillation with rapid ventricular response. EKG, atrial fibrillation with rapid ventricular response. IMPRESSION: 1. Volume overload. 2. Chronic kidney disease. 3. Acute on chronic diastolic heart failure. 4. Paroxysmal atrial fibrillation with rapid ventricular response. 5. Coronary artery disease with prior stents. 6. Hypertension. 7. Hyperlipidemia. 8. Diabetes mellitus. 9. Hypothyroidism. RECOMMENDATIONS: Increase diuretics. Monitor creatinine closely. Consult has been placed for Dr. Arenas, who is Ms. Preciado's outpatient skirt maker. We will defer timing of dialysis initiation to him at this time. Continue amiodarone protocol. The patient was on Eliquis as an outpatient for CVA prophylaxis, we will resume. Continue home cardiac medications otherwise. Her diastolic blood pressure is not well controlled, assess response to diuresis. Continue home cardiac medications otherwise. No evidence of myocardial infarction was seen on serial troponin and echocardiogram demonstrated LVF remains preserved. Thank you for this consult. We will continue to follow. Nisa Hicks MD ABS/MODL /[id number]
[2019-05-14] MEDS ORDERED: WARFARIN SOD 3 MG TAB PO SCH (18:00)
--- NOTE | 2019-05-14 19:53 | Consultation ---
DATE OF CONSULTATION: 05/14/2019 Nephrology Consultation Note REASON FOR CONSULTATION: Chronic kidney disease, stage IV. HISTORY OF PRESENT ILLNESS: This is a 63-year-old white female known to us from office (Dr. Arenas) with past medical history of chronic kidney disease stage IV with a baseline serum creatinine between 3 and 3.5 mg/dL, COPD, hypertension, status post abdominal hysterectomy, history of nephrectomy, splenectomy, appendectomy and adenoidectomy, was admitted with shortness of breath, orthopnea and paroxysmal nocturnal dyspnea. Her serum creatinine was 3.4 yesterday and this morning was 3.6 for which Nephrology consultation was obtained for further evaluation and management. At the time of examination, she appeared in no acute distress and was feeling better. However, she was on BiPAP last night. She did complain of nausea, no marylu vomiting associated with cough and phlegm for which she has already been given antibiotics in the last few days by Dr. Torres. She denied any chest pain, abdominal pain, diarrhea, bleeding in the stools, urinary problems, skin rash, joint pains or any focal weakness. PAST MEDICAL HISTORY: As above. She also has history of atrial fibrillation, morbid obesity, anxiety, sleep apnea, mixed connective tissue disease, spinal stenosis. PERSONAL AND SOCIAL HISTORY: No history of alcohol or tobacco. MEDICATIONS: See the medication sheet that was reviewed. PHYSICAL EXAMINATION: VITAL SIGNS: Blood pressure was 125/100, respirations 24, heart rate 116. HEENT: Head was atraumatic, normocephalic. Pupils are reactive to light. Mouth, oral mucosa was moist. NECK: Supple. CHEST: Revealed fair air entry with few basilar scattered coarse crackles. HEART: S1 and S2. ABDOMEN: Obese but soft. Bowel sounds are positive. EXTREMITIES: Trace edema. SENIOR SOFTWARE QA ENGINEER: She was awake and alert. Cranial nerves are intact. There was no gross motor deficit noted. LABORATORY DATA: Chest x-ray showed multifocal airspace opacities and vascular congestion stable. Sodium 132, potassium 4.3, chloride 99, CO2 of 22, BUN 33, creatinine 3.6, glucose 211, albumin 2.5. Normal LFTs. White cell count 13.6, it was 16.5 yesterday, hemoglobin 13.1, hematocrit 40.7, platelets 604. UA, specific gravity 1.020, pH 6.5, 3+ blood, 3+ protein, 21-50 rbc's, 11 to 20 wbc's, many bacteria. IMPRESSION: 1. Chronic kidney disease stage IV with a slight increase in serum creatinine from yesterday at 3.6 secondary to nephrosclerosis with an estimated GFR of around 50 mL/min, which puts her on CKD IV, nonoliguric, having made about 350 mL of urine so far. 2. Congestive heart failure with volume overload, slightly improved. 3. Chronic obstructive pulmonary disease with possible pneumonia. 4. Stable electrolytes and metabolic profile. PLAN: Strict I's and O's. No nonsteroidal antiinflammatory drugs, LACY inhibitors, IV dye, or ARB. Continue Lasix 80 mg IV q. 8 hours and IV antibiotics. Since she is nonoliguric and clinically has improved since yesterday and her potassium is within the normal range, there is no acute indication for dialysis at the present time but we will be following the patient closely. Check labs in the morning. Further recommendations to follow. Thank you for the consultation. Chad Ríos MD SA/MODL /[id number]
[2019-05-14] MEDS: TRAZODONE HCL 50 MG TAB PO SCH (20:32)
[2019-05-14] MEDS ORDERED: TRAZODONE HCL PO SCH (21:00)
[2019-05-14] MEDS: LEVOFLOXACIN 250MG/D5W 50ML 50 ML IV SCH (21:35)
[2019-05-15] VITALS (26 sets, daily range): BP systolic 90–178; BP diastolic 61–125
[2019-05-15] MEDS: HYDROMORPHONE 1MG/1ML INJ IV PRN ×2 (00:40→04:59)
[2019-05-15] MEDS ORDERED: AMIODARONE 900MG 500 ML IV ONE (01:17)
[2019-05-15] MEDS: ALPRAZOLAM 1 MG TAB PO PRN (02:17)
[2019-05-15] MEDS: CLONIDINE HCL 0.1 MG TAB PO PRN ×2 (02:18→16:20)
[2019-05-15] MEDS: IPRATROPIUM BROMIDE 0.02% 2.5 ML NEB NEB SCH ×5 (02:55→20:00)
[2019-05-15] MEDS ORDERED: ACETAMINOPHEN 325 MG TAB PO PRN (04:15)
[2019-05-15 05:06] LABS: BASOPHILS % 0.3 % (0.0-1.0); HEMATOCRIT 39.5 % (34.2-44.1); HEMOGLOBIN 13.1 g/dL (12.0-16.0); LYMPHOCYTES # (AUTO) 0.8 (1.0-3.2); LYMPHOCYTES % 6.7 % (18.0-39.1); MEAN CORPUSCULAR HEMOGLOBIN 29.1 pg (28-32); MEAN CORPUSCULAR HGB CONC 33.2 g/dL (31-35); MONOCYTES # (AUTO) 0.6 (0.2-0.8); MONOCYTES % 5.2 % (4.4-11.3); NEUTROPHILS # (AUTO) 10.8 (2.1-6.9); NEUTROPHILS % 87.3 % (38.7-80.0); PLATELET COUNT 598 x10e3/uL (140-360); RED CELL DISTRIBUTION WIDTH 13.9 % (11.7-14.4)
[2019-05-15 05:23] LABS: INR 1.32; MEAN CORPUSCULAR VOLUME 87.8 fL (81-99); PROTHROMBIN TIME 17.3 seconds (11.9-14.5)
[2019-05-15 05:24] LABS: ALBUMIN 2.3 g/dL (3.5-5.0); ALBUMIN/GLOBULIN RATIO 0.6 (0.8-2.0); ANION GAP 18.1 mmol/L (8-16); CALCIUM 9.1 mg/dL (8.4-10.2); CREATININE, SERUM 4.2 mg/dL (0.57-1.11); POTASSIUM 4.1 mmol/L (3.5-5.1)
[2019-05-15] MEDS: AMIODARONE HCL 360MG 200 ML IV SCH (05:24)
[2019-05-15] MEDS: FUROSEMIDE INJ 10 MG/ML 4 ML VIAL IV SCH ×3 (05:24→21:16)
[2019-05-15 05:51] LABS: CHOL/HDL RATIO 4.3 (3.0-3.6); MAGNESIUM 1.4 MG/DL (1.3-2.1); PHOSPHORUS 5.3 MG/DL (2.3-4.7)
--- NOTE | 2019-05-15 06:23 | Diagnostic Imaging Report ---
EXAMINATION: CHEST SINGLE (PORTABLE) COMPARISON: Chest x-ray 05/14/2019 INDICATION: ^resp distress ^[id number] ^0545 DISCUSSION: Frontal view of the chest obtained at 0554 hours. HEART AND MEDIASTINUM: Stable cardiomegaly LINES: MediPort catheter terminates in the SVC LUNGS: Lung volumes are lower. Increasing right basilar airspace opacity. Diffuse airspace opacities in the left lung are similar. PLEURA: No large effusions. No pneumothorax. BONES AND SOFT TISSUES: Stable. IMPRESSION: Lower lung volumes with increasing right basilar airspace opacity suggestive of atelectasis. No change in airspace opacities in the left lung. Signed by: Dr. Jacky Lazo MD on 05/15/2019 6:21 AM
[2019-05-15] MEDS ORDERED: VANCOMYCIN 1GM/NS 250 ML 250 ML IV ONE (07:15)
[2019-05-15] MEDS: HYDRALAZINE HCL 25 MG TAB PO SCH ×2 (08:45→16:19)
[2019-05-15] MEDS: LIOTHYRONINE SODIUM 5 MCG TAB PO SCH (08:46)
[2019-05-15] MEDS: DICYCLOMINE HCL 10 MG CAP PO SCH ×2 (08:46→16:19)
[2019-05-15] MEDS: DULOXETINE HCL 30 MG DELAYED RELEASE PO SCH ×2 (08:46→16:19)
[2019-05-15] MEDS: OXYBUTYNIN CHLORIDE 5 MG TAB PO SCH ×2 (08:47→16:22)
[2019-05-15] MEDS: APIXABAN 5 MG TABLET PO SCH ×2 (08:48→16:19)
[2019-05-15] MEDS: ISOSORBIDE MONONITRATE 30 MG TAB CR PO SCH ×2 (08:48→16:20)
[2019-05-15] MEDS: LINACLOTIDE 145 MCG CAPSULE PO SCH ×2 (08:49→16:20)
[2019-05-15] MEDS: AMLODIPINE BESYLATE 10 MG TAB PO SCH (08:49)
[2019-05-15] MEDS: TERBINAFINE 250 MG TAB PO SCH (08:49)
[2019-05-15] MEDS: CLOPIDOGREL BISULFATE 75 MG TAB PO SCH (08:49)
[2019-05-15] MEDS: PANTOPRAZOLE SOD 40 MG TABEC PO SCH (08:50)
[2019-05-15] MEDS: METOPROLOL SUCCINATE 50 MG TAB XL PO SCH (08:50)
--- NOTE | 2019-05-15 10:44 | Progress Note ---
DATE: Pulmonary Critical Care Progress Note SUBJECTIVE: The patient had atrial fibrillation yesterday and was given intravenous amiodarone by Cardiology. She had a temperature of 101.4 last night. Repeat blood cultures were drawn and she was given an additional dose of vancomycin. PHYSICAL EXAMINATION: VITAL SIGNS: The blood pressure is 143/95 and the pulse is 120 to 125. She has sinus tachycardia at this time. She remains on BiPAP. Her saturations are 100% on BiPAP. HEENT: Shows no facial swelling or erythema. She has a Port-A-Cath in on the right side access. CARDIAC: Reveals tachycardia. LUNGS: Auscultation of lungs reveals decreased breath sounds at the bases. ABDOMEN: Soft and nontender. There is no rebound or guarding. EXTREMITIES: Shows no leg edema or calf tenderness. There is no cyanosis or clubbing. SKIN: Shows no rashes. NEUROLOGICAL: Shows the patient to be alert and oriented. She has no focal abnormalities. LABORATORY DATA: BUN to creatinine ratio is 47 to 4.2. Her electrolytes are within normal limits. The white blood cell count is 12.3 and the hemoglobin is 13.1. The platelet count is 598. The PT is 17.3. RADIOGRAPHIC DATA: Chest x-ray shows low lung volumes with bibasilar airspace opacities. IMPRESSION: 1. Xfrtk-ou-updvrwr respiratory failure requiring treatment with BiPAP. 2. Djbbj-av-zaheiwp renal failure with uremia and volume overload. 3. Ajvag-am-etzrrmn diastolic heart failure. 4. Atrial fibrillation with rapid ventricular response. 5. Remote history of Clostridium difficile colitis. 6. History of prior Priscilla infections. 7. History of sciatica and chronic back pain. 8. Obstructive sleep apnea. PLAN: 1. Escalate antibiotics. The patient received vancomycin 1 g x1. She will also be continued on the Levaquin. She is allergic to multiple other antibiotics and making our selection limited. 2. Await culture results. 3. Continue BiPAP. 4. Continue Eliquis and amiodarone. 5. Continue Lasix 80 mg t.i.d. as recommended by Nephrology and continue to monitor urine output. 6. Case discussed with the patient's , nursing staff, Respiratory, and Dr. Peters. Greater than 35 minutes in direct critical care time. MD ANDRA Haque/ZOE /[id number]
--- NOTE | 2019-05-15 10:59 | Progress Note ---
DATE: SUBJECTIVE: Currently, the patient is on BiPAP, has not been off the BiPAP, having respiratory distress when we takeoff. No chest pains. No shortness of breath. The patient and also and nursing staff complains of twitching and fasciculation of muscles involuntarily. The patient also has negative balance at this time with diuresis. Did spike a fever last night and is currently on antibiotic. MEDICATIONS: She is on: 1. Lasix 80 mg every 8 hours. 2. Hydromorphone 1 mg every 6 hours. 3. Levaquin every 24 hours. 4. Rest of the home medications were continued. OBJECTIVE: VITAL SIGNS: Temperature 99, 101.4 T-max; pulse of 72, respirations of 21, blood pressure is 156/79, and pulse oximetry of 100% on BiPAP. HEENT: Normocephalic, is on BiPAP. GENERAL: The patient is arousable, but goes back to sleep. CVS: S1 and S2 normal. Regular rhythm. LUNGS: Positive for crackles at the bases. ABDOMEN: Protuberant, nontender, and nondistended. EXTREMITIES: Positive for edema. LABORATORY VALUES: White count is 12,000 today, hemoglobin of 13.1, hematocrit of 39.5, and neutrophil count of 87.3. Chemistries; sodium of 133, potassium 4.1, BUN of 47, and creatinine 4.20. The patient's BNP went from 1412 to 1680. Echocardiogram done yesterday was good, EF was 45% to 50%. Microbiology, no growth in urine. Blood cultures are still pending. IMAGING STUDIES: Done today. A chest x-ray shows lower lung field with increasing right basilar airspace opacity suggestive of atelectasis. ASSESSMENT: Ms. Ilana Gandhi with: 1. Acute on chronic diastolic heart failure. The patient is on adequate diuresis. 2. Stage 4 chronic kidney disease. The patient will need to continue on diet and diuresis, probably Lasix drip is needed. 3. Chronic obstructive pulmonary disorder with possible pneumonia. 4. Leukocytosis and spiking temperature. Plan would be to do blood cultures and also do a sepsis protocol. 5. Morbid obesity. 6. Acute respiratory failure. 7. Debility. 8. Fasciculations. PLAN: Continue with current antibiotic regimen. White count is trending down. Continue with diuresis. 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 Monitor Is and Os and daily weights. The patient has Cardiology, Nephrology, and also Pulmonology on consult. Also, she has an indwelling catheter. Further recommendation and clinical course, for her fasciculation, we will go ahead and remove Reglan from the regimen and also trazodone has been cut down to 150 compared to 600. MD EMMA Kulkarni/MODL /[id number]
[2019-05-15] MEDS ORDERED: HALOPERIDOL LACTATE 5 MG/ML VIAL IV ONE (17:30)
[2019-05-15] MEDS ORDERED: METOPROLOL TARTRATE INJ 1 MG/ML VIAL IV ONE (17:30)
[2019-05-15] MEDS ORDERED: DIGOXIN INJ 0.25 MG/ML 2 ML AMP IV ONE (17:45)
--- NOTE | 2019-05-15 18:36 | Progress Note ---
DATE: 05/15/2019 Cardiology Progress Note SUBJECTIVE: The patient denies chest pain. She is not short of breath while on BiPAP. Family indicates she continues to be confused. OBJECTIVE: VITAL SIGNS: Temperature 99 degrees, pulse 121, respiratory rate 22, blood pressure 120/76, and oxygen saturation 94% on BiPAP. GENERAL: Morbidly obese woman, no acute distress. Awake, but confused. LUNGS: Clear to auscultation bilaterally. No wheezes or crackles. CARDIOVASCULAR: Tachycardic. Irregularly irregular. No murmur. Normal S1 and S2. ABDOMEN: Soft and nontender. EXTREMITIES: 1+ pitting edema bilaterally. CARDIAC MEDICATIONS: Isosorbide mononitrate 90 mg p.o. b.i.d., Apixaban 5 mg p.o. b.i.d., furosemide 80 mg IV q.8 hours, Plavix 75 mg p.o. daily, metoprolol succinate 100 mg p.o. daily, and amiodarone drip 0.5 mg/minute. LABORATORY DATA: WBC 12.32, hemoglobin 13.1, hematocrit 39.5, and platelets 598. Sodium 133, potassium 4.1, chloride 97, CO2 22, BUN 47, and creatinine 4.2. TELEMETRY: Personally reviewed and interpreted, revealing atrial fibrillation with rapid ventricular response. IMPRESSION: 1. Volume overload. 2. Otqhz-pe-vvovoib kidney disease. 3. Sttvc-ix-fijhgly diastolic heart failure. 4. Paroxysmal atrial fibrillation with rapid ventricular response. 5. Coronary artery disease with prior stents. 6. Hypertension. 7. Hyperlipidemia. 8. Diabetes mellitus. 9. Hypothyroidism. 10. Fever. RECOMMENDATIONS: Continue IV diuretics. Monitor creatinine closely. Strict I's and O's. Nephrology evaluation is ongoing. Continue amiodarone drip. The patient's heart rate is not well controlled. Discontinue amlodipine and increase metoprolol to 200 mg p.o. daily. We will titrate AV yun blocking agents as necessary for heart rate control. One dose digoxin now. We will not schedule further doses due to her chronic kidney disease. Continue current cardiac medications. Antibiotics and evaluation of fever per primary service. Thank you for this consult. We will continue to follow. Nisa Hicks MD ABS/MODL /[id number]
[2019-05-15] MEDS ORDERED: LORAZEPAM INJ 2 MG/ML VIAL IV ONE (20:45)
[2019-05-15] MEDS ORDERED: SODIUM CHLORIDE 0.9% 250ML 250 ML ONE (21:01)
[2019-05-15] MEDS: LEVOFLOXACIN 250MG/D5W 50ML 50 ML IV SCH (21:16)
[2019-05-15] MEDS: TRAZODONE HCL 50 MG TAB PO SCH (21:16)
[2019-05-15] MEDS: AMIODARONE HCL 900 MG in DEXTROSE 5 % 500ML BOTTLE 500 ML IV SCH (21:17)
[2019-05-16] VITALS (24 sets, daily range): BP systolic 91–150; BP diastolic 66–121
[2019-05-16] MEDS: IPRATROPIUM BROMIDE 0.02% 2.5 ML NEB NEB SCH ×7 (03:15→23:45)
[2019-05-16 05:12] LABS: BASOPHILS % 0.2 % (0.0-1.0); EOSINOPHILS # (AUTO) 0.1 (0.0-0.4); EOSINOPHILS % 0.7 % (0.0-6.0); HEMATOCRIT 39.2 % (34.2-44.1); HEMOGLOBIN 13.5 g/dL (12.0-16.0); LYMPHOCYTES # (AUTO) 1.1 (1.0-3.2); LYMPHOCYTES % 8.3 % (18.0-39.1); MEAN CORPUSCULAR HEMOGLOBIN 29.2 pg (28-32); MEAN CORPUSCULAR HGB CONC 34.4 g/dL (31-35); MEAN CORPUSCULAR VOLUME 84.8 fL (81-99); MONOCYTES # (AUTO) 0.4 (0.2-0.8); MONOCYTES % 2.9 % (4.4-11.3); NEUTROPHILS # (AUTO) 11.5 (2.1-6.9); NEUTROPHILS % 87.2 % (38.7-80.0); PLATELET COUNT 589 x10e3/uL (140-360); RED BLOOD COUNT 4.62 x10e6/uL (3.6-5.1); RED CELL DISTRIBUTION WIDTH 13.8 % (11.7-14.4)
[2019-05-16 05:39] LABS: ALBUMIN 2.2 g/dL (3.5-5.0); ALBUMIN/GLOBULIN RATIO 0.6 (0.8-2.0); ANION GAP 18.9 mmol/L (8-16); CALCIUM 8.5 mg/dL (8.4-10.2); CREATININE, SERUM 4.56 mg/dL (0.57-1.11); POTASSIUM 3.9 mmol/L (3.5-5.1)
[2019-05-16] MEDS: FUROSEMIDE INJ 10 MG/ML 4 ML VIAL IV SCH ×3 (05:43→22:03)
--- NOTE | 2019-05-16 07:03 | Diagnostic Imaging Report ---
EXAMINATION: CHEST SINGLE (PORTABLE) COMPARISON: Chest x-ray 05/15/2019 INDICATION: Altered level of consciousness, shortness of breath ^resp failure ^[id number] ^0511 DISCUSSION: Frontal view of the chest obtained at 0604 hours. The patient's chin overlies the upper chest. HEART AND MEDIASTINUM: The heart is enlarged LINES: MediPort catheter in the SVC LUNGS: Diffuse groundglass opacities are stable and suggestive of edema. Improved aeration of the right lung base. Vascular congestion is stable. PLEURA: No large effusions or pneumothorax. BONES AND SOFT TISSUES: No focal osseous lesion. The soft tissues are normal. IMPRESSION: Stable cardiomegaly, vascular congestion and alveolar edema. Signed by: Dr. Jacky Lazo MD on 05/16/2019 7:00 AM
--- NOTE | 2019-05-16 09:44 | Progress Note ---
DATE: SUBJECTIVE: A 63-year-old female. The patient was admitted to the hospital with acute respiratory failure with hypertension, movement disorder and also jwfht-pz-drqlekr congestive heart failure. The patient is currently on BiPAP, has hallucinations according to the , also has movement disorder, and also has decreased her medications considerably. OBJECTIVE: VITAL SIGNS: Temperature 98, pulse of 116, respirations of 22, blood pressure is 113/110, trended down to 91/78. HEENT: Normocephalic, atraumatic. She is on BiPAP. CVS: S1 and S2 tachycardic. ABDOMEN: Nontender, nondistended. EXTREMITIES: No clubbing. No cyanosis. Positive for edema. LABORATORY VALUES: White count today is 13.21, hemoglobin of 13.5, hematocrit of 39.2, neutrophil count of 87.2. Chemistry; sodium 131, potassium of 3.9, BUN of 56, and creatinine of 4.56. Coags normal. Urine as before. MICROBIOLOGY: No growth and urine cultures also negative and blood cultures negative too. Chest x-ray was done today. No report seen. ASSESSMENT: Ms. Ilana Gandhi with: 1. Acute on chronic diastolic heart failure. The patient is being diuresed. 2. Stage 4 kidney disease, Renal is on consult. 3. Chronic obstructive pulmonary disease with possible pneumonia. Continue with Levaquin. 4. Leukocytosis, better with Levaquin. 5. Morbid obesity. 6. Acute respiratory failure. 7. Debility. 8. Movement disorder. PLAN: Continue with current medications. Leukocytosis improved. Strict I's and O's, daily weights, and adequate diuresis. Further recommendation per clinical course. Got Pulmonology, Cardiology and Renal on case. Continue monitoring her blood work. MD ANGELA KulkarniJ/MODL /[id number]
[2019-05-16] MEDS: ONDANSETRON HCL INJ 2MG/ML 2ML 2 MG/ML VIAL IV PRN (10:22)
[2019-05-16] MEDS: DULOXETINE HCL 30 MG DELAYED RELEASE PO SCH ×2 (10:36→18:31)
[2019-05-16] MEDS: OXYBUTYNIN CHLORIDE 5 MG TAB PO SCH ×2 (10:36→18:31)
[2019-05-16] MEDS: DICYCLOMINE HCL 10 MG CAP PO SCH ×2 (10:36→18:31)
[2019-05-16] MEDS: LIOTHYRONINE SODIUM 5 MCG TAB PO SCH (10:36)
[2019-05-16] MEDS: ISOSORBIDE MONONITRATE 30 MG TAB CR PO SCH ×2 (10:37→17:00)
[2019-05-16] MEDS: LINACLOTIDE 145 MCG CAPSULE PO SCH ×2 (10:37→17:00)
[2019-05-16] MEDS: APIXABAN 5 MG TABLET PO SCH ×2 (10:37→18:31)
[2019-05-16] MEDS: TERBINAFINE 250 MG TAB PO SCH (10:37)
[2019-05-16] MEDS: CLOPIDOGREL BISULFATE 75 MG TAB PO SCH (10:37)
[2019-05-16] MEDS: PANTOPRAZOLE SOD 40 MG TABEC PO SCH (10:37)
[2019-05-16] MEDS: METOPROLOL SUCCINATE 50 MG TAB XL PO SCH (10:38)
--- NOTE | 2019-05-16 12:35 | Progress Note ---
DATE: SUBJECTIVE: The patient remains on BiPAP. She is more confused and has some myoclonic movements. Her heart rate is improved, but is still elevated at 112. She remains on an amiodarone drip. She was seen by Nephrology today and they have recommended dialysis. We are awaiting access placement. PHYSICAL EXAMINATION: VITAL SIGNS: The patient is afebrile. The blood pressure is 125/85 and the pulse is 115. The respiratory rate is 27. The saturation is 98% on BiPAP. HEENT: Shows no facial swelling or erythema. CARDIAC: Reveals a regular rate and rhythm with a normal S1 and S2. LUNGS: Auscultation of lungs reveals rhonchorous breath sounds bilaterally. There is no wheezing. ABDOMEN: Soft and nontender. There is no rebound or guarding. EXTREMITIES: Shows no leg edema or calf tenderness. There is no cyanosis or clubbing. SKIN: Shows no rashes. NEUROLOGICAL: Shows some confusion and some myoclonic movements. LABORATORY DATA: White blood cell count is 13.2 and the hemoglobin is 13.5. The platelet count is 585. The BUN to creatinine ratio is 56 to 4.56. The other electrolytes are within normal limits. Albumin is 2.2 and total protein is 6. IMPRESSION: 1. Rkslg-ko-kkupehx respiratory failure. 2. Icwaz-ib-chraewf renal failure with uremia and volume overload. 3. Mvede-eb-obkkqcb diastolic heart failure. 4. Atrial fibrillation with rapid ventricular response. 5. Obstructive sleep apnea. 6. History of sciatica and chronic back pain. PLAN: 1. Continue current antibiotics and await culture results. 2. Arrange to place dialysis catheter and begin dialysis. 3. Continue BiPAP for now and repeat ABG. 4. Continue amiodarone and Eliquis. 5. Case discussed with Respiratory, nursing, and Nephrology. Greater than 35 minutes in direct critical care time. Humberto Archer MD [facility]/ZOE /[id number]
--- NOTE | 2019-05-16 13:45 | Progress Note ---
DATE: 05/16/2019 SUBJECTIVE: Remains with dyspnea. Staff has noticed some confusion. Has been having some trouble tolerating BiPAP too. PHYSICAL EXAMINATION: GENERAL: Appears to be in some respiratory distress. VITAL SIGNS: Heart rate 112 and irregular, temperature 98.8, blood pressure 102/72. CHEST: With occasional crackles. EXTREMITIES: Trace edema. ABDOMEN: Benign. NEUROLOGIC: Appears to be alert. For the most part, she is appropriate, but occasionally will answer inappropriately. Net negative 670 mL. DIAGNOSTIC AND LABORATORY DATA: Chest x-ray still showing fluid overload. Sodium 131, creatinine 4.5, BUN 56, and serum CO2 of 22. UA showing granular casts. Hemoglobin is 13.5. ASSESSMENT: 1. Acute kidney injury, fluid overload, single kidney, and obesity with chronic kidney disease stage 4, that has likely progressed. 2. Question acute tubular necrosis from possible pneumonia. PLAN: From Renal standpoint, given that she is both fluid overloaded and has worsening chemistries with diuretic, favor trial of dialysis. The hope is that she will still regain some kidney function, although that is not entirely clear. I did try to call her to make sure we got proper consent given staff noticing some confusion. He is not available. Left my number with staff to call me. For the time being, continue IV Lasix. The diuresis seems reasonable. Yehuda Arenas MD [facility]/MODL /[id number]
[2019-05-16 14:08] LABS: ABG HCO3 23 mmol/L (23-28); ABG PCO2 40 mmHg (41-51); ABG PH 7.37 (7.31-7.41); ABG PO2 94 mmHg (80-105)
[2019-05-16] MEDS ORDERED: HEPARIN SOD (PORCINE) 1000 UNIT/ML SDV ONE (14:37)
[2019-05-16] MEDS ORDERED: HEPARIN SOD (PORCINE) 1000 UNIT/ML 10ML MDV IM ONE (14:45)
[2019-05-16] MEDS ORDERED: HEPARIN SOD (PORCINE) 1000 UNIT/ML SDV IV NR (15:00)
--- NOTE | 2019-05-16 15:20 | Diagnostic Imaging Report ---
EXAMINATION: CHEST SINGLE (PORTABLE) INDICATION: Line placement COMPARISON: Chest radiograph earlier the same day FINDINGS: LINES/TUBES:Interval placement of left IJ temp or dialysis catheter terminating in the superior vena cava. Right chest port unchanged. EKG leads overlie the chest. LUNGS:The lungs are moderately inflated. There is perihilar fullness and indistinctness of the pulmonary vasculature. Bilateral airspace opacities, not significantly changed. PLEURA:No pleural effusion or pneumothorax. MEDIASTINUM:Cardiomediastinal silhouette is stably enlarged. BONES/SOFT TISSUES:No acute osseous injury. ABDOMEN:No free air under the diaphragm. IMPRESSION: Left IJ temporary dialysis catheter terminates in the superior vena cava. Line is ready for immediate use. Unchanged cardiomegaly and pulmonary edema. Signed by: Piotr Oneil MD on 05/16/2019 3:18 PM
[2019-05-16] MEDS ORDERED: SODIUM CHLORIDE 0.9% 1000ML 1,000 ML ONE (15:26)
--- NOTE | 2019-05-16 15:40 | Diagnostic Imaging Report ---
PROCEDURE: Non-tunneled central venous catheter placement Procedural Personnel Attending physician(s): Piotr Oneil MD Fellow physician(s): None Resident physician(s): None Advanced practice provider(s): None Pre-procedure diagnosis: JOSE DANIEL Post-procedure diagnosis: Same Indication: Performance of hemodialysis Additional clinical history: None Complications: No immediate complications. IMPRESSION: Insertion of left-sided non-tunneled triple-lumen temporary dialysis catheter Plan: Chest radiograph to confirm positioning prior to use. PROCEDURE SUMMARY: - Venous access with ultrasound guidance - Non-tunneled central venous catheter insertion - Additional procedure(s): None PROCEDURE DETAILS: Pre-procedure Consent: Informed consent for the procedure including risks, benefits and alternatives was obtained and time-out was performed prior to the procedure. Preparation (MIPS): The site was prepared and draped using all elements of maximal sterile barrier technique including sterile gloves, sterile gown, cap, mask, large sterile sheet, sterile ultrasound probe cover, hand hygiene and cutaneous antisepsis with 2% chlorhexidine. Medical reason for site preparation exception (MIPS): Not applicable Anesthesia/sedation Level of anesthesia/sedation: No sedation Access Local anesthesia was administered. The vessel was sonographically evaluated and determined to be patent. Real time ultrasound was used to visualize needle entry into the vessel and a permanent image was stored. Vein accessed: Internal jugular vein Access technique: Micropuncture set with 21 gauge needle Catheter placement The access site was dilated and the catheter was placed into the vein over a wire. A sterile dressing was applied. Catheter placed: Bard Trialysis Catheter size (Zimbabwean): 13 Catheter length (cm): 20 Catheter flush: Heparin (1000 units/mL) Catheter securement technique: Non-absorbable suture Contrast Contrast agent: None Radiation Dose None. Ultrasound Only. Additional Details Additional description of procedure: None Equipment details: None Specimens removed: None Estimated blood loss (mL): Less than 10 Standardized report: [email or web address] Attestation Signer name: Piotr Oneil MD I attest that I was present for the entire procedure. I reviewed the stored images and agree with the report as written. Signed by: Piotr Oneil MD on 05/16/2019 3:38 PM
[2019-05-16] MEDS ORDERED: HEPARIN SOD (PORCINE) 1000 UNIT/ML SDV IV PRN (15:45)
[2019-05-16] MEDS ORDERED: SODIUM CHLORIDE 0.9% 1000ML 2,000 ML IV PRN (15:45)
[2019-05-16] MEDS: AMIODARONE HCL 900 MG in DEXTROSE 5 % 500ML BOTTLE 500 ML IV SCH (18:24)
--- NOTE | 2019-05-16 18:57 | Progress Note ---
DATE: Cardiology Progress Note SUBJECTIVE: The patient was on positive-pressure ventilation. Reports shortness of breath. OBJECTIVE: VITAL SIGNS: Temperature is 98.8, heart rate is ranging from 93 to 109, respiratory rate is 21, blood pressure is 150/87, and oxygen saturation is 96% on BiPAP. GENERAL: Mild respiratory distress, alert, mildly confused. CARDIOVASCULAR: Irregularly irregular, tachycardia. RESPIRATORY: Decreased breath sounds at bases. ABDOMEN: Soft, nontender, and nondistended. EXTREMITIES: Shows edema. LABORATORY DATA: Reviewed. Creatinine is 4.56. TELEMETRY: Monitoring revealed atrial fibrillation. IMPRESSION: 1. Volume overload. 2. Sosuy-al-vmmesaz kidney disease. 3. Tuteu-ry-odwbnie diastolic heart failure. 4. Paroxysmal atrial fibrillation. 5. Coronary artery disease. 6. Hypertension. 7. Hyperlipidemia. 8. Diabetes mellitus. 9. Morbid obesity. RECOMMENDATIONS: The patient will undergo dialysis catheter placement. Volume management per Nephrology through hemodialysis. Her metoprolol was increased and we will titrate her AV yun blocking agents for better heart rate control. We will avoid digoxin given acute kidney injury. If needed, we can start the patient on diltiazem as well. DO TIMOTHY Mullen/MODL /[id number]
[2019-05-16] MEDS: HYDROMORPHONE 1MG/1ML INJ IV PRN ×2 (19:59→23:50)
[2019-05-16] MEDS: LEVOFLOXACIN 250MG/D5W 50ML 50 ML IV SCH (21:20)
[2019-05-16] MEDS: TRAZODONE HCL 50 MG TAB PO SCH (21:20)
--- NOTE | 2019-05-16 21:38 | NUR ---
IV Amiodarone infusing @ 0.5mg/hr.
--- NOTE | 2019-05-16 21:38 | NUR ---
Report received. Assumed care. Resting quietly at this time. at bedside.
[2019-05-17] VITALS (25 sets, daily range): BP systolic 108–163; BP diastolic 11–154
[2019-05-17] MEDS: IPRATROPIUM BROMIDE 0.02% 2.5 ML NEB NEB SCH ×6 (03:30→23:30)
[2019-05-17 05:20] LABS: BASOPHILS % 0.3 % (0.0-1.0); HEMATOCRIT 41.2 % (34.2-44.1); HEMOGLOBIN 14.1 g/dL (12.0-16.0); LYMPHOCYTES # (AUTO) 1.1 (1.0-3.2); LYMPHOCYTES % 9.3 % (18.0-39.1); MEAN CORPUSCULAR HGB CONC 34.2 g/dL (31-35); MEAN CORPUSCULAR VOLUME 84.6 fL (81-99); MONOCYTES # (AUTO) 0.4 (0.2-0.8); MONOCYTES % 3.4 % (4.4-11.3); NEUTROPHILS # (AUTO) 10.1 (2.1-6.9); NEUTROPHILS % 86.5 % (38.7-80.0); PLATELET COUNT 626 x10e3/uL (140-360); RED BLOOD COUNT 4.87 x10e6/uL (3.6-5.1); RED CELL DISTRIBUTION WIDTH 13.8 % (11.7-14.4)
[2019-05-17] MEDS: HYDROMORPHONE 1MG/1ML INJ IV PRN ×2 (05:23→20:00)
--- NOTE | 2019-05-17 05:53 | Diagnostic Imaging Report ---
Examination: Single AP view of the chest. COMPARISON: 05/16/2019 INDICATION: Respiratory failure DISCUSSION: See impression IMPRESSION: 1. Right internal jugular central venous port and left internal jugular temporary hemodialysis catheter are unchanged in position. 2. Stable enlargement of the cardiac silhouette with alveolar pulmonary edema versus multifocal pneumonia. No new consolidations. Signed by: Dr. Phoenix Contreras M.D. on 05/17/2019 5:50 AM
[2019-05-17 05:57] LABS: ALBUMIN 2.3 g/dL (3.5-5.0); ALBUMIN/GLOBULIN RATIO 0.6 (0.8-2.0); ANION GAP 18.6 mmol/L (8-16); CREATININE, SERUM 4.22 mg/dL (0.57-1.11); POTASSIUM 3.6 mmol/L (3.5-5.1)
[2019-05-17] MEDS: FUROSEMIDE INJ 10 MG/ML 4 ML VIAL IV SCH ×3 (06:08→21:01)
--- NOTE | 2019-05-17 08:55 | Progress Note ---
DATE: SUBJECTIVE: A 63-year-old female in ICU #[id number]. Patient came in with acute on chronic congestive heart failure. The patient also had CKD 4, had dialysis yesterday. Continues to have dyskinetic movements. No chest pain noted by family. No shortness of breath. More aware. Cognition is better. OBJECTIVE: VITAL SIGNS: Temperature is 98.8, pulse of 92, respirations of 19, blood pressure is 133/96, pulse oximetry of 97%. She is on BiPAP continuously. HEENT: Normocephalic. The patient is on BiPAP. The patient is obese. CVS: S1 and S2 distant. LUNGS: Decreased air entry. ABDOMEN: Nontender, nondistended. EXTREMITIES: No clubbing, no cyanosis. 2+ edema. The patient has SCDs. LABORATORY VALUES: White count is 11,000 coming down, hemoglobin of 14.1, hematocrit 41.2. Chemistries show sodium 133, potassium of 3.6, BUN of 49, creatinine 4.22. Coags normal. Serology pending hepatitis antibodies. MICROBIOLOGY: No growth in blood culture. Urine culture, negative and blood culture after 72 hours, negative. IMAGING STUDIES: Done today, chest x-ray shows right internal jugular central venous port and left internal jugular temporary hemodialysis catheter, stable enlargement of cardiac silhouette. ASSESSMENT: 1. A 63-year-old lady with acute on chronic congestive heart failure. 2. Acute on chronic kidney disease, end-stage renal disease, status post dialysis. 3. Paroxysmal atrial fibrillation. 4. History of coronary artery disease. 5. History of acute respiratory distress. 6. History of possible sleep apnea. PLAN: Continue with current medications. Medicine has been reviewed. The patient is currently on furosemide 80 mg q.8. Continue on thyroid medication. All the sedative medications have been decreased. We will continue to monitor the patient. Further recommendation as per clinical course and also on consultants views. MD ANGELA KulkarniJ/MODL /[id number]
[2019-05-17] MEDS: ISOSORBIDE MONONITRATE 30 MG TAB CR PO SCH ×3 (09:00→18:24)
[2019-05-17] MEDS: LINACLOTIDE 145 MCG CAPSULE PO SCH ×2 (09:00→17:00)
[2019-05-17] MEDS: METOPROLOL SUCCINATE 50 MG TAB XL PO SCH ×2 (09:00→09:55)
[2019-05-17] MEDS: DULOXETINE HCL 30 MG DELAYED RELEASE PO SCH ×2 (09:53→18:23)
[2019-05-17] MEDS: DICYCLOMINE HCL 10 MG CAP PO SCH ×2 (09:53→18:23)
[2019-05-17] MEDS: LIOTHYRONINE SODIUM 5 MCG TAB PO SCH (09:53)
[2019-05-17] MEDS: OXYBUTYNIN CHLORIDE 5 MG TAB PO SCH ×2 (09:53→18:23)
[2019-05-17] MEDS: TERBINAFINE 250 MG TAB PO SCH (09:54)
[2019-05-17] MEDS: PANTOPRAZOLE SOD 40 MG TABEC PO SCH (09:55)
[2019-05-17] MEDS: CLOPIDOGREL BISULFATE 75 MG TAB PO SCH (09:58)
[2019-05-17] MEDS: APIXABAN 5 MG TABLET PO SCH ×2 (09:58→18:24)
--- NOTE | 2019-05-17 11:40 | Progress Note ---
DATE: Cardiology Progress Note SUBJECTIVE: The patient is sleeping comfortably on BiPAP. No chest pain. Reports shortness of breath. OBJECTIVE: VITAL SIGNS: Temperature is 98.8, heart rate is 89, respirations are 18, oxygen saturation is 97% on BiPAP, and blood pressure is 133/96. GENERAL: Middle-aged woman, on BiPAP. Mild respiratory distress. CARDIOVASCULAR: She is irregularly irregular. Normal rate. LUNGS: Diminished breath sounds. ABDOMEN: Soft, obese, and nontender. EXTREMITIES: Trace edema. CARDIOVASCULAR MEDICATIONS: Reviewed. LABORATORY DATA: Reviewed. Creatinine is 4.22 and potassium 3.6. Chest x-ray shows stable enlargement of cardiac silhouette and pulmonary edema versus pneumonia. IMPRESSION: 1. Cepzd-cn-kudznqn diastolic heart failure. 2. Fkump-rn-znpxzyw kidney disease, currently on dialysis. 3. Paroxysmal atrial fibrillation. 4. Coronary artery disease. 5. Hypertension. 6. Hyperlipidemia. 7. Morbid obesity. RECOMMENDATIONS: Diuretics per Nephrology. She was started on hemodialysis for adequate volume removal. Her heart rate is now controlled on current doses of metoprolol. Continue clopidogrel and apixaban for anti-platelet and anticoagulation regimen. DO TIMOTHY Mullen/MITCHL /[id number]
--- NOTE | 2019-05-17 12:51 | Progress Note ---
DATE: 05/17/2019 SUBJECTIVE: Net negative yesterday. She started dialysis yesterday. Remains on BiPAP. Still appears to be somewhat fluid overloaded. OBJECTIVE: VITAL SIGNS: Temperature is 98.8, pulse 92, and blood pressure 133/96. CARDIAC: Irregular sounds. EXTREMITIES: Trace edema. CHEST: Scattered rhonchi. NEUROLOGIC: Appears to be alert. She seems to be more appropriate today. LABORATORY DATA: Creatinine of 4.22, post dialysis yesterday. BUN of 49, K of 3.6, albumin 2.3. ASSESSMENT: 1. Acute kidney injury, underlying chronic kidney disease stage 4 to 5, single kidney by history, fluid overload. 2. Status post right nephrectomy. PLAN: 1. Hemodialysis today. 2. Three-hour run. 3. F160 filter. 4. Blood flow rate 300 mL/minute. 5. Dialysate flow rate 600 mL/minute. 6. Four potassium bath for potassium. 7. PRN mannitol and saline. Thank you for allowing us to participate in Ms. Preciado's care. MD CONCEPCION RubinK/MODL /[id number]
--- NOTE | 2019-05-17 14:26 | Progress Note ---
DATE: SUBJECTIVE: The patient had dialysis yesterday. Her breathing has improved, but she still has some confusion. She remains on BiPAP. PHYSICAL EXAMINATION: VITAL SIGNS: The blood pressure is 119/90 and the pulse is 95. Saturation is 94%. HEENT: Shows no facial swelling or erythema. CARDIAC: Reveals regular rate and rhythm with normal S1 and S2. LUNGS: Auscultation of lungs reveals decreased breath sounds at the bases. There is no wheezing. ABDOMEN: Soft and nontender. There is no rebound or guarding. EXTREMITIES: Shows no leg edema or calf tenderness. There is no cyanosis or clubbing. IMPRESSION: 1. Qzjec-vy-hpkzgsd renal failure. 2. Paroxysmal atrial fibrillation. 3. Cobrn-im-kvpxphc diastolic heart failure. 4. Atrial fibrillation. 5. Morbid obesity. 6. History of sciatica and chronic back pain. 7. Obstructive sleep apnea. PLAN: 1. Repeat dialysis today. 2. Wean the patient off BiPAP and on to nasal cannula. 3. Continue current cardiac regimen. 4. Continue current antibiotics. Humberto Archer MD [facility]/MITCHL /[id number]
[2019-05-17] MEDS: AMIODARONE HCL 900 MG in DEXTROSE 5 % 500ML BOTTLE 500 ML IV SCH (18:00)
[2019-05-17] MEDS ORDERED: AMIODARONE 900MG 500 ML IV SCH (18:15)
--- NOTE | 2019-05-17 19:00 | NUR ---
Bedside report received from Paola Lagn RN. Pt received resting in bed with eyes open following commands and talking to family members, pt oriented to person and place but required reorienting to time. Care plan reviewed, bed in lowest and locked position, call light in reach of the pt, bed alarm engaged.
[2019-05-17] MEDS: LEVOFLOXACIN 250MG/D5W 50ML 50 ML IV SCH (20:46)
[2019-05-17] MEDS: TRAZODONE HCL 50 MG TAB PO SCH (20:46)
[2019-05-17] MEDS: CLONIDINE HCL 0.1 MG TAB PO PRN (20:47)
[2019-05-18] VITALS (25 sets, daily range): BP systolic 91–174; BP diastolic 65–130
[2019-05-18] MEDS: HYDROMORPHONE 1MG/1ML INJ IV PRN ×2 (01:43→21:55)
[2019-05-18] MEDS: IPRATROPIUM BROMIDE 0.02% 2.5 ML NEB NEB SCH ×6 (03:30→23:30)
[2019-05-18 05:12] LABS: BASOPHILS % 0.2 % (0.0-1.0); EOSINOPHILS % 0.2 % (0.0-6.0); HEMATOCRIT 39.6 % (34.2-44.1); HEMOGLOBIN 13.4 g/dL (12.0-16.0); LYMPHOCYTES # (AUTO) 1.8 (1.0-3.2); LYMPHOCYTES % 18.2 % (18.0-39.1); MEAN CORPUSCULAR HGB CONC 33.8 g/dL (31-35); MEAN CORPUSCULAR VOLUME 85.7 fL (81-99); MONOCYTES # (AUTO) 0.7 (0.2-0.8); MONOCYTES % 7.4 % (4.4-11.3); NEUTROPHILS # (AUTO) 7.4 (2.1-6.9); NEUTROPHILS % 73.5 % (38.7-80.0); PLATELET COUNT 598 x10e3/uL (140-360); RED BLOOD COUNT 4.62 x10e6/uL (3.6-5.1); RED CELL DISTRIBUTION WIDTH 14.2 % (11.7-14.4)
[2019-05-18] MEDS: FUROSEMIDE INJ 10 MG/ML 4 ML VIAL IV SCH ×3 (05:13→21:55)
[2019-05-18 05:42] LABS: ALBUMIN 2.1 g/dL (3.5-5.0); ALBUMIN/GLOBULIN RATIO 0.6 (0.8-2.0); ANION GAP 17.2 mmol/L (8-16); CALCIUM 8.3 mg/dL (8.4-10.2); CREATININE, SERUM 3.49 mg/dL (0.57-1.11); POTASSIUM 3.2 mmol/L (3.5-5.1)
--- NOTE | 2019-05-18 06:21 | Diagnostic Imaging Report ---
Examination: Single AP view of the chest. COMPARISON: 05/17/2019 INDICATION: Respiratory failure DISCUSSION: See impression IMPRESSION: 1. Right internal jugular chest port and left internal jugular temporary hemodialysis catheter are unchanged in position. 2. Interval improvement in patchy bilateral airspace opacities relative to 05/17/2019, likely reflective of improved pulmonary edema. Stable enlargement of the cardiac silhouette. Signed by: Dr. Phoenix Contreras M.D. on 05/18/2019 6:19 AM
--- NOTE | 2019-05-18 06:26 | NUR ---
Dr. Peters present and assessing the pt. New order received to give 1 time dose 40mg KCL PO for potassium level of 3.2.
[2019-05-18] MEDS ORDERED: POTASSIUM CHLORIDE 20 MEQ TAB CR PO ONE (06:55)
--- NOTE | 2019-05-18 07:00 | NUR ---
Bedside report given to Fadumo Lang RN. Care plan reviewed, pts present at the bedside. Bed in lowest and locked position, call light in reach of the pt. Fadumo to administer KCL per Dr. Peters's order.
--- NOTE | 2019-05-18 07:55 | Progress Note ---
DATE: SUBJECTIVE: The patient is here for CHF exacerbation, acute renal failure, respiratory distress and hypoxia. Currently, patient is feeling better. Had dialysis yesterday. No chest pain. No shortness of breath. She is tolerating the BiPAP and is feeling better. Physical therapy on board. OBJECTIVE: VITAL SIGNS: Temperature afebrile, pulse of 89, respirations 17, blood pressure is 139/76, pulse oximetry 98% on BiPAP. HEENT: Normocephalic. BiPAP present. CVS: S1 and S2 distant and regular rate. ABDOMEN: Nontender, nondistended. EXTREMITIES: Positive for edema. LABORATORY VALUES: White count is come down to 10,000 hemoglobin 13, hematocrit of 39.6, neutrophil count is 73.5. Chemistries are 137 sodium, potassium 3.2, BUN 17.2, creatinine of 3.49, eGFR of 13. Serology is pending. MICROBIOLOGY: Blood cultures and urine cultures are negative so far. IMAGING STUDIES: Chest x-rays were done today show interval improvement of patchy bilateral airspace opacities. ASSESSMENT: 1. Ms. Tracy Preciado with acute on chronic renal failure, status post dialysis. 2. Paroxysmal atrial fibrillation. 3. Acute on chronic congestive heart failure. 4. Volume overload. 5. Morbid obesity. 6. Hypoxia. 7. Sleep apnea. PLAN: Continue on the BiPAP. Medications have been were reviewed. The patient is on Levaquin at this time, also on amiodarone drip. The patient is currently also on anticoagulation with Eliquis, continue the same, medicines have been reviewed. The patient's metoclopramide has been stopped. Movement disorder is better. Continue all medications. Continue to be in ICU. Further recommendation per clinical course. Enrique Peters MD [facility]/MODL /[id number]
[2019-05-18] MEDS: DULOXETINE HCL 30 MG DELAYED RELEASE PO SCH ×2 (08:22→17:22)
[2019-05-18] MEDS: OXYBUTYNIN CHLORIDE 5 MG TAB PO SCH ×2 (08:22→17:22)
[2019-05-18] MEDS: DICYCLOMINE HCL 10 MG CAP PO SCH ×2 (08:22→17:22)
[2019-05-18] MEDS: APIXABAN 5 MG TABLET PO SCH ×2 (08:22→17:22)
[2019-05-18] MEDS: LIOTHYRONINE SODIUM 5 MCG TAB PO SCH (08:22)
[2019-05-18] MEDS: TERBINAFINE 250 MG TAB PO SCH (08:23)
[2019-05-18] MEDS: ISOSORBIDE MONONITRATE 30 MG TAB CR PO SCH ×2 (08:23→17:22)
[2019-05-18] MEDS: CLOPIDOGREL BISULFATE 75 MG TAB PO SCH (08:23)
[2019-05-18] MEDS: PANTOPRAZOLE SOD 40 MG TABEC PO SCH (08:23)
[2019-05-18] MEDS: METOPROLOL SUCCINATE 50 MG TAB XL PO SCH (08:23)
[2019-05-18] MEDS: LINACLOTIDE 145 MCG CAPSULE PO SCH ×2 (08:23→17:22)
--- NOTE | 2019-05-18 12:37 | Progress Note ---
DATE: Cardiology Progress Note SUBJECTIVE: The patient found sleeping comfortably. Denies any chest pain or shortness of breath. OBJECTIVE: VITAL SIGNS: Temperature 96.1, heart rate is 89, respirations are 19, blood pressure is 158/89, and oxygen saturation 95% on 4 L nasal cannula. GENERAL: Well-appearing, in no apparent distress. CARDIOVASCULAR: Irregularly irregular. Normal rate. LUNGS: Diminished breath sounds at bases. ABDOMEN: Soft, nontender, and obese. EXTREMITIES: Trace edema. CARDIOVASCULAR MEDICATIONS: Reviewed. LABORATORY DATA: Reviewed. Hemoglobin is 13.4. Creatinine is 3.49 and potassium 3.2. Telemetry monitoring was reviewed and interpreted by me and shows atrial fibrillation with better controlled ventricular response. IMPRESSION: 1. Paroxysmal atrial fibrillation. 2. Mlbgp-li-csxdnxm diastolic heart failure. 3. Hkhrl-xi-fgbrlae kidney disease, currently on dialysis. 4. Coronary artery disease. 5. Hypertension. 6. Hyperlipidemia. 7. Morbid obesity. 8. Hypokalemia. RECOMMENDATIONS: Continue diuretics and hemodialysis per Nephrology for adequate volume removal. Her heart rate is better controlled. Continue metoprolol and we will switch amiodarone to p.o. dosing. Also, continue clopidogrel and apixaban. We will continue to follow along with you. DO TIMOTYH Mullen/MODL /[id number]
[2019-05-18] MEDS: ONDANSETRON HCL INJ 2MG/ML 2ML 2 MG/ML VIAL IV PRN ×2 (12:51→21:56)
--- NOTE | 2019-05-18 13:27 | Progress Note ---
DATE: 05/18/2019 SUBJECTIVE: Breathing better, fluid has been gradually removed. Now participating with therapy. PHYSICAL EXAMINATION: VITAL SIGNS: Temperature is 96.1, pulse 92, blood pressure 174/95. CHEST: Rhonchi, but appears decreased. EXTREMITIES: Trace to 1+ edema if she is standing. NEURO: Appears to be more alert, appropriate. Speech is normal. She is negative 2.5 L. ASSESSMENT: 1. Chronic kidney disease stage 4-5, single kidney, diabetic nephropathy, hypertension. She is status post splenectomy and right nephrectomy. 2. Fluid overload, improving. 3. Hypokalemia secondary to poor intake lately as well. PLAN: Repeat hemodialysis today mainly for fluid clearance 4 hour run, 4 potassium bath, blood flow rate 350 mL/minute, dialysate flow rate 700 mL/minute, try to get 3-4 L of fluid off. Keep salt and water restricted. Potassium been replaced. MD PHYLLIS Rubin/ZOE /[id number]
--- NOTE | 2019-05-18 14:15 | NUR ---
SPOKE [facility]; [place]. STATES SHE RECEIVED AUTH FOR THE PT TO COME TO THEIR FACILITY ON YESTERDAY. STATES THE REFERRAL WAS INITIATED FROM HOME. STATES SHE WILL SPEAK W THE PT'S TO F/U IF INPT REHAB IS STILL AN OPTION.
--- NOTE | 2019-05-18 16:33 | Progress Note ---
DATE: SUBJECTIVE: The patient received dialysis. She has improved. She is less confused. She is not having abnormal movements. PHYSICAL EXAMINATION: VITAL SIGNS: The patient is afebrile. The blood pressure is 170/80 and the saturation is 93% on 4 L. HEENT: Shows no facial swelling or erythema. There is a left-sided dialysis catheter in place. CARDIAC: Reveals regular rate and rhythm with normal S1 and S2. LUNGS: Auscultation of lungs reveals rhonchorous breath sounds bilaterally. There is no wheezing. ABDOMEN: Soft, nontender. There is no rebound or guarding. EXTREMITIES: Show no leg edema or calf tenderness. There is no cyanosis or clubbing. SKIN: Shows no rashes. NEUROLOGICAL: Shows no focal abnormalities. IMPRESSION: 1. Cuaol-zv-zkyrtfe renal failure. 2. Paroxysmal atrial fibrillation. 3. Mazqq-xa-dlodmrf diastolic heart failure. 4. Obstructive sleep apnea. 5. Morbid obesity. PLAN: 1. Continue dialysis as needed. 2. Wean oxygen. 3. Complete antibiotics. 4. Continue current cardiac regimen. Humberto Archer MD [facility]/MODL /[id number]
[2019-05-18] MEDS: AMIODARONE HCL 200 MG TAB PO SCH (17:22)
[2019-05-18] MEDS: ALPRAZOLAM 1 MG TAB PO PRN (18:11)
--- NOTE | 2019-05-18 19:00 | NUR ---
Bedside report received from Fadumo Lang RN. Care plan reviewed, pts not at the bedside at this time.
[2019-05-18] MEDS: TRAZODONE HCL 50 MG TAB PO SCH (21:55)
[2019-05-18] MEDS: LEVOFLOXACIN 250MG/D5W 50ML 50 ML IV SCH (21:55)
[2019-05-19] VITALS (25 sets, daily range): BP systolic 89–137; BP diastolic 62–104
[2019-05-19] MEDS: HYDROMORPHONE 1MG/1ML INJ IV PRN ×5 (02:23→21:55)
[2019-05-19] MEDS: ONDANSETRON HCL INJ 2MG/ML 2ML 2 MG/ML VIAL IV PRN ×2 (02:23→06:26)
[2019-05-19] MEDS: IPRATROPIUM BROMIDE 0.02% 2.5 ML NEB NEB SCH ×6 (02:45→23:00)
--- NOTE | 2019-05-19 03:00 | NUR ---
Pt pulled up in bed and then requested to be turned to her right side again stating that she did not want to turn the "other way". Pts at the bedside, myself, and Shalonda Sena RN present and witness the pt state make this request. Addendum: 05/19/19 at 0306 by Estephania Braswell RN Amended: Links added.
[2019-05-19] MEDS: FUROSEMIDE INJ 10 MG/ML 4 ML VIAL IV SCH ×3 (06:21→21:55)
[2019-05-19 06:39] LABS: BASOPHILS # (AUTO) 0.1 (0.0-0.1); BASOPHILS % 0.6 % (0.0-1.0); EOSINOPHILS % 0.2 % (0.0-6.0); HEMATOCRIT 45.1 % (34.2-44.1); HEMOGLOBIN 15.2 g/dL (12.0-16.0); LYMPHOCYTES # (AUTO) 2.5 (1.0-3.2); LYMPHOCYTES % 20.8 % (18.0-39.1); MEAN CORPUSCULAR HEMOGLOBIN 29.2 pg (28-32); MEAN CORPUSCULAR HGB CONC 33.7 g/dL (31-35); MEAN CORPUSCULAR VOLUME 86.6 fL (81-99); MONOCYTES # (AUTO) 1.1 (0.2-0.8); MONOCYTES % 8.9 % (4.4-11.3); NEUTROPHILS # (AUTO) 8.4 (2.1-6.9); NEUTROPHILS % 68.3 % (38.7-80.0); PLATELET COUNT 712 x10e3/uL (140-360); RED BLOOD COUNT 5.21 x10e6/uL (3.6-5.1); RED CELL DISTRIBUTION WIDTH 14.6 % (11.7-14.4)
[2019-05-19 06:58] LABS: ANION GAP 17.1 mmol/L (8-16); CALCIUM 9.1 mg/dL (8.4-10.2); CREATININE, SERUM 3.36 mg/dL (0.57-1.11); POTASSIUM 4.1 mmol/L (3.5-5.1)
[2019-05-19] MEDS: DICYCLOMINE HCL 10 MG CAP PO SCH ×2 (08:19→17:56)
[2019-05-19] MEDS: ISOSORBIDE MONONITRATE 30 MG TAB CR PO SCH ×2 (08:19→17:56)
[2019-05-19] MEDS: LIOTHYRONINE SODIUM 5 MCG TAB PO SCH (08:19)
[2019-05-19] MEDS: DULOXETINE HCL 30 MG DELAYED RELEASE PO SCH ×2 (08:19→17:56)
[2019-05-19] MEDS: APIXABAN 5 MG TABLET PO SCH ×2 (08:19→17:56)
[2019-05-19] MEDS: OXYBUTYNIN CHLORIDE 5 MG TAB PO SCH ×2 (08:19→17:56)
[2019-05-19] MEDS: AMIODARONE HCL 200 MG TAB PO SCH ×2 (08:19→17:56)
[2019-05-19] MEDS: PANTOPRAZOLE SOD 40 MG TABEC PO SCH (08:20)
[2019-05-19] MEDS: TERBINAFINE 250 MG TAB PO SCH (08:20)
[2019-05-19] MEDS: LINACLOTIDE 145 MCG CAPSULE PO SCH ×2 (08:20→17:56)
[2019-05-19] MEDS: CLOPIDOGREL BISULFATE 75 MG TAB PO SCH (08:20)
[2019-05-19] MEDS: METOPROLOL SUCCINATE 50 MG TAB XL PO SCH (08:21)
[2019-05-19 10:14] LABS: LYMPHOCYTES % (MANUAL) 24 % (19-48); MONOCYTES % (MANUAL) 7 % (3.4-9.0); NEUTROPHILS % (MANUAL) 67 % (40-74); PLATELET ESTIMATE MARKEDLY INCREASED; PLATELET MORPHOLOGY COMMENT NORMAL; RBC MORPHOLOGY COMMENT NORMAL
--- NOTE | 2019-05-19 10:32 | Progress Note ---
DATE: 05.19.19 SUBJECTIVE: Breathing easier. Denied any nausea, vomiting. says she is more lucid. OBJECTIVE: VITAL SIGNS: Temperature is 96, pulse 82, blood pressure 132/88. CHEST: Diminished breath sounds at the bases. EXTREMITIES: Trace edema. NEURO: Alert, appropriate. Speech is normal. LABORATORY DATA: Hemoglobin is 15, K 4.1, creatinine 3.3, BUN 28. ASSESSMENT: 1. Chronic kidney disease, stage 5. 2. Acute injury/decompensation. 3. Fluid overload. 4. Satisfactory electrolytes. PLAN: 1. UF again for 2 hours. 2. Has a deep upper extremity fistula on the left arm that is still patent. Request dr seo to consider transposition or elevation. 3. Keep salt and water restricted. Thanks for allowing us to participate in the Ilana's care. MD PHYLLIS Rubin/ZOE /[id number] MTDD
--- NOTE | 2019-05-19 12:18 | Progress Note ---
DATE: SUBJECTIVE: The patient has less confusion. She complains of being weak. She is scheduled for dialysis again today. PHYSICAL EXAMINATION: VITAL SIGNS: The patient is afebrile. The vital signs are stable. HEENT: Shows no facial swelling or erythema. CARDIAC: Reveals regular rate and rhythm with normal S1 and S2. LUNGS: Auscultation of lungs reveals clear breath sounds bilaterally. There is no wheezing. ABDOMEN: Soft and nontender. There is no rebound or guarding. EXTREMITIES: Shows no leg edema or calf tenderness. IMPRESSION: 1. Zkkmr-rc-rcudatw renal failure. 2. Cxbvq-fp-mxaukkf diastolic heart failure. 3. Paroxysmal atrial fibrillation. 4. Obstructive sleep apnea. 5. Morbid obesity. PLAN: 1. Dialysis again today. 2. Continue to wean oxygen. 3. Physical therapy. 4. Complete antibiotics. 5. Continue current cardiac regimen. 6. Possible transfer out of intensive care unit. Humberto Archer MD [facility]/MODL /[id number]
[2019-05-19] MEDS ORDERED: HEPARIN SOD (PORCINE) 1000 UNIT/ML SDV IV PRN (16:15)
[2019-05-19] MEDS ORDERED: ALBUMIN 25% 12.5GM 0.25 GM/ML BTL IV PRN (16:15)
[2019-05-19] MEDS ORDERED: SODIUM CHLORIDE 0.9% 1000ML 2,000 ML IV PRN (16:15)
--- NOTE | 2019-05-19 16:57 | NUR ---
SPOKE WITH PT ABOUT DIALYSIS CHAIR SET UP, SHE STATES THEY L[facility]ES [facility] [address] [facility] [address], AND CAN THEY GO THERE. WILL CONSULT WITH DR SANDRA TO SEE IF HE HAS PRIVILEGES AT [facility]. SHE STATES TO ALSO CALL , CALLED AND LEFT MESSAGE FOR YOHANNES TO RETURN CALL. [phone]. WILL CONTINUE TO COMPLETE AND FAX REFERRAL WHEN GET CONFIRMATION OF CHOICE.
--- NOTE | 2019-05-19 17:15 | NUR ---
Nutrition Screen Note RD Recommendation for Physician: - Continue renal diet - Encourage PO intake Plan of Care: RD following, monitoring for tolerance and adequacy Nutrition reason for involvement: follow up Primary Diagnose(s): acute on chronic congestive heart failure, COPD exacerbation, CKD stage IV PMH: COPD, HTN, HLD, IBS, AFib, chronic constipation, low back pain, anxiety, sleep apnea Ht: 61in Wt: 229.5 (05/19) 248.06lb (05/14) BMI: 43.4 kg/m2 IBW: 105lb RD Assessment: (05/19) Follow up. Pt is receiving dialysis at this time due to acute on chronic renal failure. Pt reports eating <50% of her meals. Pt also declared she has been having diarrhea. Offered pt a nutrition supplement due to poor intake, but pt declined. Will continue to monitor. (05/14) Chart reviewed. Labs and meds reviewed. 63yo F, who was admitted for CHF. Currently on lasix. Stage IV CKD - not on dialysis. Visited pt in the room. Pt reported decreased appetite for 2 years due to gastroparesis. Pt contributed her weight gain to fluid retention. Pt denied any nausea or vomiting. No known food allergy. Pt denied any chewing or swallowing difficulty. Pt appeared to be morbidly obese and on strict I&O. Obtained food preferences. Will re-evaluate when pt feels better. Current Diet: Renal diet Malnutrition Evaluation (05/14) The patient does not meet criteria for a specified degree of malnutrition at this time. Will re-evaluate at follow-up as appropriate. Diet Education Needs Assessment: Diet education not indicated. Nutrition Care Level: moderate Signed: Kami Fonseca, RD, LD
--- NOTE | 2019-05-19 17:25 | Progress Note ---
DATE: SUBJECTIVE: A 63-year-old female who comes in with acute respiratory failure, acute congestive heart failure, and acute renal failure status post dialysis. The patient has been receiving dialysis up in right. No chest pain. No shortness of breath. Her involuntary movements to better. No chest pains. OBJECTIVE: VITAL SIGNS: Temperature is 96.8, pulse of 89, respirations of 17, blood pressure is 100/71, pulse oximeter of 96% on room air. HEENT: Normocephalic and atraumatic. Pupils are reactive to light and accommodation. CVS: S1 and S2 normal. Regular rate and rhythm. ABDOMEN: Nontender and nondistended. EXTREMITIES: No clubbing, no cyanosis. Positive edema. LABORATORY VALUES: Today's white count is 12,000, hemoglobin of 15.2, hematocrit of 45.1. Chemistries: Sodium 134, potassium 4.1. BUN and creatinine 28 and 3.36. MICROBIOLOGY: Blood cultures and urine cultures have been negative. ASSESSMENT: Ms. Tracy Preciado with: 1. Acute on chronic renal failure status post dialysis. 2. Paroxysmal atrial fibrillation. 3. Congestive heart failure. 4. Volume overload. 5. Morbid obesity. 6. Hypoxia. 7. Sleep apnea. PLAN: Continue monitoring the patient. We will continue monitoring her electrolytes and the patient's medications have been reviewed. The patient can be out of ICU. Further recommendation per clinical course. MD EMMA Kulkarni/MODL /[id number]
--- NOTE | 2019-05-19 18:26 | Progress Note ---
DATE: Cardiology Progress Note SUBJECTIVE: The patient is feeling better. Denies any chest pain. Reports some shortness of breath. OBJECTIVE: VITAL SIGNS: Temperature 96.4, heart rate is 88, respirations are 19, blood pressure is 116/78, ox saturation 95% on 4 L nasal cannula. GENERAL: No apparent distress. CARDIOVASCULAR: Irregularly, irregular normal rate. LUNGS: Diminished breath sounds at bases. ABDOMEN: Soft, nontender, nondistended. EXTREMITIES: No clubbing, cyanosis or edema. VASCULAR: Diminished pulses. CARDIOVASCULAR MEDICATIONS: Reviewed. LABORATORY DATA: Reviewed. Creatinine 3.36, potassium is 4.1. Telemetry monitoring was reviewed, interpreted by me, it shows atrial fibrillation with an improved ventricular response. IMPRESSION: 1. Paroxysmal atrial fibrillation. 2. Acute on chronic diastolic heart failure. 3. Acute on chronic kidney disease, currently on dialysis. 4. Coronary artery disease. 5. Hypertension. 6. Hyperlipidemia. 7. Morbid obesity. RECOMMENDATIONS: Volume status has improved since starting hemodialysis. Diuretic dosing per Nephrology. Heart rate is better controlled with current cardiovascular medications. Continue clopidogrel and apixaban as well. Clayton Barron DO [facility]/MODL /[id number]
[2019-05-19] MEDS: LEVOFLOXACIN 250MG/D5W 50ML 50 ML IV SCH (21:55)
[2019-05-19] MEDS: TRAZODONE HCL 50 MG TAB PO SCH (21:55)
[2019-05-19] MEDS: HYDROMORPHONE HCL 2 MG TAB PO PRN (23:45)
[2019-05-20] VITALS (18 sets, daily range): BP systolic 102–162; BP diastolic 48–94
[2019-05-20] MEDS: IPRATROPIUM BROMIDE 0.02% 2.5 ML NEB NEB SCH ×6 (03:05→23:40)
[2019-05-20] MEDS: HYDROMORPHONE 1MG/1ML INJ IV PRN (04:09)
[2019-05-20] MEDS: FUROSEMIDE INJ 10 MG/ML 4 ML VIAL IV SCH ×3 (05:21→21:52)
[2019-05-20] MEDS: HYDROMORPHONE HCL 2 MG TAB PO PRN ×3 (07:21→17:51)
[2019-05-20 08:50] LABS: INR 1.56; PROTHROMBIN TIME 19.8 seconds (11.9-14.5)
[2019-05-20 08:51] LABS: PARTIAL THROMBOPLASTIN TIME 41.9 seconds (23.8-35.5)
[2019-05-20 08:55] LABS: ANION GAP 17.7 mmol/L (8-16); CALCIUM 9.5 mg/dL (8.4-10.2); CREATININE, SERUM 5.16 mg/dL (0.57-1.11); POTASSIUM 3.7 mmol/L (3.5-5.1)
[2019-05-20] MEDS: LINACLOTIDE 145 MCG CAPSULE PO SCH ×2 (09:00→17:00)
[2019-05-20] MEDS: ISOSORBIDE MONONITRATE 30 MG TAB CR PO SCH ×2 (09:00→17:52)
[2019-05-20] MEDS: DULOXETINE HCL 30 MG DELAYED RELEASE PO SCH ×2 (09:00→17:51)
[2019-05-20] MEDS: CLOPIDOGREL BISULFATE 75 MG TAB PO SCH (09:00)
[2019-05-20] MEDS: LIOTHYRONINE SODIUM 5 MCG TAB PO SCH (09:00)
[2019-05-20] MEDS: METOPROLOL SUCCINATE 50 MG TAB XL PO SCH ×2 (09:00→22:05)
[2019-05-20] MEDS: APIXABAN 5 MG TABLET PO SCH ×2 (09:00→17:00)
[2019-05-20] MEDS: DICYCLOMINE HCL 10 MG CAP PO SCH ×2 (09:00→17:51)
[2019-05-20] MEDS: TERBINAFINE 250 MG TAB PO SCH (09:00)
[2019-05-20] MEDS: AMIODARONE HCL 200 MG TAB PO SCH ×2 (09:00→17:51)
[2019-05-20] MEDS: OXYBUTYNIN CHLORIDE 5 MG TAB PO SCH ×2 (09:00→17:51)
[2019-05-20] MEDS: PANTOPRAZOLE SOD 40 MG TABEC PO SCH (09:00)
--- NOTE | 2019-05-20 09:31 | NUR ---
SPOKE WITH DR SANDRA, WHOM STATES HE DOES HAVE PRIVILEGES AT [facility], STATES THIS MAY RESOLVE AND TO HOLD REFERRAL UNTIL THURSDAY, WILL FOLLOW UP NEXT WEEK TO COMPLETE OR DC THE REFERRAL.
--- NOTE | 2019-05-20 10:23 | Progress Note ---
DATE: SUBJECTIVE: The patient is breathing better. She received some pain medicine early this morning and has some confusion. She has no fever. PHYSICAL EXAMINATION: VITAL SIGNS: The patient is afebrile. Blood pressure is 129/48 and saturation is 92% on 3 L. HEENT: Shows no facial swelling or erythema. LYMPHATIC: Shows no submandibular, cervical, or supraclavicular adenopathy. CARDIAC: Reveals a regular rate and rhythm with normal S1 and S2. LUNGS: Auscultation of lungs shows clear breath sounds bilaterally. There is no wheezing. ABDOMEN: Soft and nontender. There is no rebound or guarding. EXTREMITIES: Shows no leg edema or calf tenderness. There is no cyanosis or clubbing. SKIN: Shows no rashes. NEUROLOGICAL: Shows no focal abnormalities. IMPRESSION: 1. Tephp-xf-nptdpaa renal failure. 2. Paroxysmal atrial fibrillation. 3. Metabolic encephalopathy. 4. Morbid obesity. 5. Obstructive sleep apnea. PLAN: 1. Continue dialysis as needed. 2. Continue to monitor electrolytes and blood counts. 3. Continue current cardiac regimen. Humberto Archer MD [facility]/MODL /[id number]
--- NOTE | 2019-05-20 12:23 | Progress Note ---
DATE: 04.19.19 SUBJECTIVE: Overall breathing is better, on dialysis with the help of albumin for blood pressure support. OBJECTIVE: VITAL SIGNS: Temperature is 97.5, pulse 89 sounds irregular, blood pressure 156/89. CHEST: Clear with diminished breath sounds at the bases. EXTREMITIES: Trace edema. NEURO: Appears to be more alert and appropriate. LABORATORY DATA: Hemoglobin 15, K is 3.7, creatinine is 5.16, BUN of 47. ASSESSMENT: 1. Chronic kidney disease stage 4 to 5 with acute injury. 2. Single kidney. 3. Diabetes. 4. Congestive heart failure. 5. Fluid overload. 6. Blood pressure is reasonable. PLAN: 1. Dialysis today 4 hour run. 2. Potassium bath. 3. Blood flow rate 350 mL/minute. 4. Dialysate flow rate 700 mL/minute. 5. A 3-4 L fluid removal. 6. F160 filter. 7. Keep salt and water restricted. 8. Most likely, we will have to plan for outpatient dialysis. I suspect she is now end-stage. 9. Request tunneled dialysis catheter. 10. We will request placement in outpatient dialysis as we work on strengthening. MD PHYLLIS Rubin/ZOE /[id number]
[2019-05-20] MEDS ORDERED: HEPARIN SOD (PORCINE) 5,000 UNIT/ML VIAL ONE (14:50)
[2019-05-20] MEDS ORDERED: PROTAMINE SULFATE 10 MG/ML 5 ML VIAL ONE (14:50)
[2019-05-20] MEDS ORDERED: HEPARIN SOD (PORCINE) 1000 UNIT/ML 30ML ONE (14:50)
[2019-05-20] MEDS ORDERED: THROMBIN FOR SOLN 5,000 UNIT VIAL ONE ×2 (14:50→14:51)
[2019-05-20] MEDS ORDERED: SODIUM CHLORIDE 0.9% 500ML 500 ML ONE (14:51)
[2019-05-20] MEDS ORDERED: BUPIVACAINE HCL 0.5% INJ 30 ML VIAL INJ ONE (14:51)
--- NOTE | 2019-05-20 16:40 | Progress Note ---
DATE: Cardiology Progress Note SUBJECTIVE: The patient's shortness of breath has improved. She denies any chest pain. states at bedside, she is confused. OBJECTIVE: VITAL SIGNS: Temperature is 97.2, heart rate is 84, respirations are 16, blood pressure is 114/70, and oxygen saturation is 100% on 4 L nasal cannula. GENERAL: In no apparent distress, mild confusion. CARDIOVASCULAR: She is irregularly irregular. Normal rate. LUNGS: Diminished breath sounds at bases. ABDOMEN: Soft, obese, and nontender. EXTREMITIES: Trace edema. CARDIOVASCULAR MEDICATIONS: Reviewed. LABORATORY DATA: Reviewed. Showed creatinine of 5.1. IMPRESSION: 1. Paroxysmal atrial fibrillation. 2. Ckuxa-ky-dlwatrk diastolic heart failure. 3. Hwpqn-ww-hdagdur kidney disease, currently at dialysis. 4. Coronary artery disease. 5. Hypertension. 6. Hyperlipidemia. 7. Morbid obesity. RECOMMENDATIONS: Heart rate is improved on current cardiovascular medications. Continue anti-platelet and anticoagulants. Diuretic regimen per Nephrology. Hemodialysis has improved her volume status. Continue to monitor closely on telemetry for titration of medications. Clayton Barron DO BM/MODL /[id number]
--- NOTE | 2019-05-20 17:15 | NUR ---
1200 call placed to ilia tripp to up date on POC with Dr. Arenas on unit to discuss. Message left 1430 hd complete 2.7 liters off 1500 [employer] Tech here to map left and right arm for fistula placement. 1530 Dr. Braswell and SX team here at bedside, patient swooped off too surgery. 1550 Pateint back from OR, procedure canceled due to patient receiving eliquis yesterday, no communication was provide preoperatively to hold, however this am dose held due to pending procedure. Dr. Braswell plans on attempting procedure next week now, however has not communicated or ordered when Eliquis should be held. 1629 report called to Venice Sherman RN for room 112 and events above described as well as SBAR report. 1650 Patient transferred by this RN too room 112 with possesions intact.
[2019-05-20] MEDS: ONDANSETRON HCL INJ 2MG/ML 2ML 2 MG/ML VIAL IV PRN (17:51)
--- NOTE | 2019-05-20 19:57 | Progress Note ---
DATE: SUBJECTIVE: A 63-year-old female transferred out of ICU. The patient with history of congestive heart failure, acute renal failure, respiratory distress, hypoxia, and atrial fibrillation with RVR. The patient currently is feeling better, out of ICU. OBJECTIVE: VITAL SIGNS: Temperature is afebrile, pulse of 96, respirations of 16, blood pressure is 129/76, and O2 at 4 L on nasal cannula. CARDIOVASCULAR SYSTEM: Shows irregularly irregular rhythm. Normal rate. LUNGS: Decreased air entry into all lung woods. Positive for crackles at the bases. ABDOMEN: Soft, tender, and protuberant. EXTREMITIES: Trace edema. MEDICATIONS: Reviewed. LABORATORY VALUES: Today's white count is 12,000, hemoglobin of 15.2, hematocrit of 45.2. Chemistry; sodium of 133, BUN of 47, and creatinine 5.16. ASSESSMENT: Tracy with dncqn-vo-mqsrrch renal failure status post dialysis, paroxysmal atrial fibrillation, congestive heart failure, volume overload, morbid obesity, hypoxia, and sleep apnea. PLAN: Continue with dialysis. Continue replacing lytes as needed. The patient's medications reviewed. Continue same program. Physical therapy and we will continue to monitor the patient along with consultants. MD ANGELA KulkarniJ/MODL /[id number]
--- NOTE | 2019-05-20 21:51 | NUR ---
SPOKE TO DR. RUCKER AT REGARDING POTASSIUM READING 3.0, MD SAID TO HOLD LASIX DOSE FOR TONIGHT. MD ALSO INFORMED OF BP AND HR, MD ORDERED TO GIVE A DOSE OF THE DAILY METOPROLOL.
[2019-05-20] MEDS: TRAZODONE HCL 50 MG TAB PO SCH (22:05)
--- NOTE | 2019-05-20 22:17 | Consultation ---
DATE OF CONSULTATION: 05/20/2019 REASON FOR CONSULT: End-stage renal failure, need for permanent dialysis access. REQUESTED BY: Yehuda Arenas MD. TILE APPLICATOR: Dr. Fran Nunez. HISTORY OF PRESENT ILLNESS: I saw and evaluated this patient on May 20, 2019. She is a 63-year-old lady with a history of COPD, hypertension, and renal failure who has been initiated on dialysis and requires permanent dialysis access. She was in her usual state of health until about two weeks ago when she started to have dyspnea. She went to the clinic and was seen by Dr. Torres. She was given antibiotics, but dyspnea persisted. She was found to have fluid retention with elevated creatinine and has been started on dialysis. Permanent dialysis access is required. I created a left brachiobasilic fistula several months ago. The patient did not return for followup. The fistula is still working, but is too deep for easy access. PAST MEDICAL HISTORY: Positive for COPD, hypertension, hyperlipidemia, irritable bowel syndrome, history of atrial fibrillation, constipation, low back pain, anxiety, chronic UTI. PAST SURGICAL HISTORY: Positive for section and brachiobasilic fistula. She has a cholecystectomy. ALLERGIES: TAPE, AUGMENTIN, CODEINE, DEMEROL, GABAPENTIN, KEFLEX, PENICILLIN, PRIMAXIN, ROBAXIN, SULFA, AND TETRACYCLINE. POSITIVE FOR CAD AND SLEEP APNEA. SOCIAL HISTORY: Negative for smoking, alcohol, IV drug use. FAMILY HISTORY: Negative for early renal failure. MEDICATIONS: See MAR. REVIEW OF SYSTEMS: GENERAL: Positive for fatigue and malaise. NEUROLOGIC: Negative for focal weakness in extremities or dysarthria. HEENT: Positive for decreased vision and decreased hearing. CARDIAC: Positive for coronary artery disease. Negative for chest pain, palpitation. PULMONARY: Positive for shortness of breath. The patient is using a BiPAP. GI: Positive for obesity and history of irritable bowel syndrome. : Negative for hematuria or dysuria. ENDOCRINE: Negative for polyuria, polydipsia. VASCULAR: Negative for claudication. SKIN: Negative for rashes or itching. HEMATOLOGIC: Negative for clotting or bleeding. INFECTIOUS: Negative for fevers or sweating. PSYCHIATRIC: Positive for depression. Negative for anxiety. PHYSICAL EXAMINATION: GENERAL: Overweight lady lying flat in bed in the ICU. Sisters at the bedside. VITAL SIGNS: Blood pressure 110/70, pulse 80 and regular, respirations 16 and unlabored. NECK: Supple and nontender. No JVD. CARDIAC: Shows an irregular rate and rhythm. There is a normal S1, S2. There is no S3 or S4. LUNGS: Clear to auscultation percussion bilaterally. ABDOMEN: Globally benign. Good bowel sounds. No hepatosplenomegaly. BACK: No CVA tenderness. No muscular spasm. EXTREMITIES: Ecchymoses on both upper extremities but no cyanosis. Both arms are quite large. VASCULAR: Carotids 2+/2+ bilaterally. No carotid bruit. Brachials and radials 1+/2+ bilaterally. Ulnar is 1+/2+ bilaterally. Femorals 1+/2+ bilaterally. There is a well-healed fistula scar in the left upper extremity between the elbow and shoulder. There is a good bruit. MUSCULOSKELETAL: Full range of motion at all joints. No joint swelling. NEUROLOGIC: Cranial nerves 2-12 intact. Sensation intact to light touch and pinprick bilaterally. Strength 5/5 all extremities. LYMPHATICS: Negative for cervical, clavicular, femoral adenopathy. LABORATORIES: White count is 10.0, hemoglobin of 13.4, hematocrit 39.6, platelet count 598,000. INR is 19.8 with PT 1.56. PTT is 41.9. Sodium 138, potassium 3.7, BUN 47, creatinine 5.16. IMPRESSION: Stable fistula will need a revision. Thank you much for asking me to see this nice lady. Jovon Braswell MD GVL/MODL /[id number]
[2019-05-21] VITALS (7 sets, daily range): BP systolic 114–143; BP diastolic 63–90
[2019-05-21] MEDS: HYDROMORPHONE HCL 2 MG TAB PO PRN (01:55)
[2019-05-21] MEDS: IPRATROPIUM BROMIDE 0.02% 2.5 ML NEB NEB SCH ×6 (02:58→23:25)
[2019-05-21 06:32] LABS: BASOPHILS # (AUTO) 0.1 (0.0-0.1); BASOPHILS % 0.6 % (0.0-1.0); EOSINOPHILS # (AUTO) 0.2 (0.0-0.4); EOSINOPHILS % 0.9 % (0.0-6.0); HEMATOCRIT 43.9 % (34.2-44.1); HEMOGLOBIN 14.4 g/dL (12.0-16.0); LYMPHOCYTES # (AUTO) 3.1 (1.0-3.2); LYMPHOCYTES % 19.3 % (18.0-39.1); MEAN CORPUSCULAR HEMOGLOBIN 28.6 pg (28-32); MEAN CORPUSCULAR HGB CONC 32.8 g/dL (31-35); MEAN CORPUSCULAR VOLUME 87.1 fL (81-99); MONOCYTES # (AUTO) 1.6 (0.2-0.8); MONOCYTES % 10.3 % (4.4-11.3); NEUTROPHILS # (AUTO) 10.5 (2.1-6.9); NEUTROPHILS % 65.9 % (38.7-80.0); PLATELET COUNT 768 x10e3/uL (140-360); RED BLOOD COUNT 5.04 x10e6/uL (3.6-5.1); RED CELL DISTRIBUTION WIDTH 14.7 % (11.7-14.4)
--- NOTE | 2019-05-21 06:44 | NUR ---
DR. RUCKER DOING ROUNDS. NEW ORDER RECEIVED TO HOME ELIQUIS AND PLAVIX DUE TO PROCEDURE ON Thursday05/23/2019
[2019-05-21 06:46] LABS: ANION GAP 19.5 mmol/L (8-16); CALCIUM 9.6 mg/dL (8.4-10.2); CREATININE, SERUM 3.96 mg/dL (0.57-1.11); POTASSIUM 3.5 mmol/L (3.5-5.1)
[2019-05-21] MEDS: FUROSEMIDE INJ 10 MG/ML 4 ML VIAL IV SCH ×3 (06:47→22:12)
--- NOTE | 2019-05-21 07:02 | NUR ---
BEDSIDE SHIFT REPORT RECEIVED FROM SUPERVISOR FRONT RN, PT SLEEPING, EASILY AROUSED. NO SIGNS OF DISTRESS.
--- NOTE | 2019-05-21 07:04 | Progress Note ---
DATE: SUBJECTIVE: The patient was in the ICU for acute renal failure, deemed end-stage renal disease. The patient also has history of atrial fibrillation with RVR, urinary tract infection, and weakness. The patient developed florid amount of diarrhea yesterday. Rectal tube was placed. The patient is also having oxygen by nasal cannula. Off the BiPAP, did not use BiPAP at nighttime. MEDICATIONS: Noted, the patient is currently off her apixaban and Eliquis for possible fistula on Thursday. Dialysis done yesterday. Currently feeling weak, could not get out of bed because of diarrhea. OBJECTIVE: VITAL SIGNS: Temperature 97.1, pulse 80, respirations 18, blood pressure 142/90, and pulse oximetry 94%. HEENT: Normocephalic and atraumatic. Nasal cannula. CVS: S1 and S2. Irregular. ABDOMEN: Protuberant, nontender, nondistended. EXTREMITIES: Trace edema. PSYCH: Mentation within normal limits at this time. LABORATORY DATA: Pending white count, yesterday's white count had gone up to 12.5. Chemistries are pending. Glucoses are running in the 130s to 140s. Last creatinine was 5.16. MICROBIOLOGY: No growth in blood cultures, urine cultures, serology. C difficile was negative. Hepatitis C and B are negative. ASSESSMENT: Ms. Tracy Preciado with: 1. End-stage renal disease. 2. Acute congestive heart failure. 3. Atrial fibrillation. 4. Morbid obesity. 5. Sleep apnea. 6. Diarrhea. PLAN: Continue on dialysis. We will continue monitoring the patient's atrial fibrillation, off apixaban and Plavix for fistula. Continue to monitor the patient's lytes and hemoglobin, hematocrit, and white count. Further recommendation per clinical course. Enrique Peters MD ASJ/MODL /[id number]
[2019-05-21] MEDS: ISOSORBIDE MONONITRATE 30 MG TAB CR PO SCH ×2 (09:00→18:16)
[2019-05-21] MEDS: METOPROLOL SUCCINATE 50 MG TAB XL PO SCH (09:00)
[2019-05-21] MEDS: LINACLOTIDE 145 MCG CAPSULE PO SCH ×2 (09:00→17:00)
[2019-05-21] MEDS: HYDROMORPHONE 1MG/1ML INJ IV PRN ×3 (09:49→22:27)
[2019-05-21] MEDS: ONDANSETRON HCL INJ 2MG/ML 2ML 2 MG/ML VIAL IV PRN ×2 (09:49→18:14)
[2019-05-21] MEDS: AMIODARONE HCL 200 MG TAB PO SCH ×2 (09:53→18:16)
[2019-05-21] MEDS: DICYCLOMINE HCL 10 MG CAP PO SCH ×2 (09:53→18:16)
[2019-05-21] MEDS: LIOTHYRONINE SODIUM 5 MCG TAB PO SCH (09:54)
[2019-05-21] MEDS: DULOXETINE HCL 30 MG DELAYED RELEASE PO SCH ×2 (09:54→18:16)
[2019-05-21] MEDS: OXYBUTYNIN CHLORIDE 5 MG TAB PO SCH ×2 (09:55→18:16)
[2019-05-21] MEDS: PANTOPRAZOLE SOD 40 MG TABEC PO SCH (09:57)
--- NOTE | 2019-05-21 11:00 | Progress Note ---
DATE: 05/21/2019 SUBJECTIVE: Had dialysis yesterday. On Eliquis, aVF transposition held. OBJECTIVE: GENERAL: On examination, no distress. Resting comfortably. VITAL SIGNS: Temperature 98, pulse 94, blood pressure 120/75. LUNGS: Clear. EXTREMITIES: Trace edema. LABORATORY DATA: After dialysis yesterday. Creatinine 3.96. Serum CO2 of 21, sodium 132. ASSESSMENT: 1. End stage renal disease. 2. Single kidney. 3. Diabetes. 4. Hypertension. 5. End organ damage. 6. Fluid overload, improving. 7. Acidosis. 8. Reasonable hemoglobin. PLAN: 1. Continue the IV Lasix. Plan on Thursday, Thursday, Thursday dialysis. 2. Request has been placed for permanent tunneled dialysis catheter. 3. Await transposition of fistula. 4. We will follow along. MD CONCEPCION RubinK/MODL /[id number]
--- NOTE | 2019-05-21 17:51 | Progress Note ---
DATE: SUBJECTIVE: The patient is afebrile. She is transferred out of the intensive care unit. She remains on Vapotherm. She was seen by Nephrology today and is planning for dialysis on a regular basis. She is scheduled to have a fistula completed on Thursday with Dr. Braswell. PHYSICAL EXAMINATION: VITAL SIGNS: The blood pressure is 114/71 and saturation is 98% on 4 L. HEENT: Shows no facial swelling or erythema. The oropharynx is normal. LYMPHATIC: Shows no submandibular, cervical, or supraclavicular adenopathy. CARDIAC: Reveals regular rate and rhythm with normal S1 and S2. LUNGS: Auscultation of lungs reveals clear breath sounds bilaterally. There is no wheezing. ABDOMEN: Soft and nontender. There is no rebound or guarding. EXTREMITIES: Shows no leg edema or calf tenderness. There is no cyanosis or clubbing. SKIN: Shows no rashes. NEUROLOGICAL: Shows no focal abnormalities. IMPRESSION: 1. End-stage renal disease. 2. Aspzj-nf-uisbmfs systolic congestive heart failure. 3. Atrial fibrillation. 4. Obstructive sleep apnea. 5. Metabolic encephalopathy. PLAN: 1. Continue dialysis. 2. Wean oxygen. 3. Monitor blood count and electrolytes. Humberto Archer MD [facility]/MODL /[id number]
--- NOTE | 2019-05-21 18:50 | Progress Note ---
DATE: Cardiology Progress Note SUBJECTIVE: She found sleeping comfortably. No events. OBJECTIVE: VITAL SIGNS: Temperature is 97.7, heart rate is 89, respirations are 20, blood pressure is 114/71, and oxygen saturation is 97% on 4 L nasal cannula. GENERAL: She is a chronically ill-appearing woman, in no apparent distress. CARDIOVASCULAR: Irregularly irregular. LUNGS: Diminished at the bases. ABDOMEN: Soft, nontender, and nondistended. EXTREMITIES: Trace edema. CARDIOVASCULAR MEDICATIONS: Reviewed. LABORATORY DATA: Reviewed. Telemetry monitoring was reviewed by myself and showed atrial fibrillation with controlled ventricular response. IMPRESSION: 1. Paroxysmal atrial fibrillation. 2. Qvkve-fp-ixedgnh diastolic heart failure. 3. Rcxno-sq-odewguj kidney disease, currently on dialysis. 4. Coronary artery disease. 5. Hypertension. 6. Hyperlipidemia. 7. Morbid obesity. RECOMMENDATIONS: Heart rate remains controlled on current cardiovascular medications. Continue antiplatelets and anticoagulants after the AV fistula was performed. Diuretic regimen per Nephrology. We will continue to monitor closely. Clayton Barron DO BM/MODL /[id number]
[2019-05-21] MEDS: TRAZODONE HCL 50 MG TAB PO SCH (21:00)
[2019-05-22] VITALS (8 sets, daily range): BP systolic 98–120; BP diastolic 55–80
[2019-05-22] MEDS: IPRATROPIUM BROMIDE 0.02% 2.5 ML NEB NEB SCH ×6 (03:25→23:13)
[2019-05-22] MEDS: FUROSEMIDE INJ 10 MG/ML 4 ML VIAL IV SCH ×3 (06:10→21:50)
--- NOTE | 2019-05-22 07:48 | Progress Note ---
DATE: SUBJECTIVE: A 63-year-old female, who came in with acute respiratory failure, acute renal failure status post dialysis, is scheduled for a tunneled catheter tomorrow with Interventional Radiology. We will continue with dialysis. The patient had a night where she was still hallucinating. No chest pains noted. Shortness of breath is better. She still has a rectal tube and a Awan catheter. Medications reviewed. OBJECTIVE: VITAL SIGNS: Temperature is 96.9, pulse of 87, respirations of 20, blood pressure is 115/73, pulse oximetry of 93%. HEENT: Normocephalic and atraumatic. The patient slept without the BiPAP yesterday. Nasal cannula on-board. CVS: S1 and S2 distant, irregular rate. LUNGS: Decreased air entry. ABDOMEN: Nontender, nondistended. EXTREMITIES: No clubbing, no cyanosis, no edema. MICROBIOLOGY: Blood cultures are negative. Urine cultures are negative. LABORATORY VALUES: Today's white count is 15,000. Chemistry; sodium 132, potassium 3.5, BUN of 24, creatinine of 3.96, glucose is running in the 110s to 150s. ASSESSMENT: End-stage renal disease, acute congestive heart failure, atrial fibrillation, morbid obesity, sleep apnea. PLAN: Continue to monitor the patient. Anticoagulation has been held off over the tunneled catheter tomorrow. We will continue to monitor the patient. Continue monitoring her white count and her hematocrit and also creatinine. Further recommendation per clinical course, and consultants on-board. MD EMMA Kulkarni/MODL /[id number]
[2019-05-22] MEDS: DULOXETINE HCL 30 MG DELAYED RELEASE PO SCH ×2 (08:58→17:37)
[2019-05-22] MEDS: DICYCLOMINE HCL 10 MG CAP PO SCH ×2 (08:58→17:35)
[2019-05-22] MEDS: AMIODARONE HCL 200 MG TAB PO SCH ×2 (08:58→17:36)
[2019-05-22] MEDS: OXYBUTYNIN CHLORIDE 5 MG TAB PO SCH ×2 (08:59→17:37)
[2019-05-22] MEDS: LIOTHYRONINE SODIUM 5 MCG TAB PO SCH (08:59)
[2019-05-22] MEDS: ISOSORBIDE MONONITRATE 30 MG TAB CR PO SCH ×2 (09:00→17:00)
[2019-05-22] MEDS: METOPROLOL SUCCINATE 50 MG TAB XL PO SCH (09:00)
[2019-05-22] MEDS: LINACLOTIDE 145 MCG CAPSULE PO SCH ×2 (09:00→16:25)
[2019-05-22] MEDS: PANTOPRAZOLE SOD 40 MG TABEC PO SCH (09:00)
[2019-05-22] MEDS: ONDANSETRON HCL INJ 2MG/ML 2ML 2 MG/ML VIAL IV PRN ×2 (09:09→18:01)
[2019-05-22] MEDS: HYDROMORPHONE 1MG/1ML INJ IV PRN ×2 (09:09→18:01)
--- NOTE | 2019-05-22 11:59 | Progress Note ---
DATE: SUBJECTIVE: The patient has less respiratory congestion. She has some intermittent confusion. She is afebrile. PHYSICAL EXAMINATION: VITAL SIGNS: Stable. HEENT: Shows no facial swelling or erythema. CARDIAC: Reveals a regular rate and rhythm with normal S1, S2. LUNGS: Auscultation of lungs reveals decreased breath sounds at the bases. There is no wheezing. ABDOMEN: Soft, nontender. There is no rebound or guarding. EXTREMITIES: Show no leg edema or calf tenderness. There is no cyanosis or clubbing. SKIN: Shows no rashes. IMPRESSION: 1. Acute on chronic renal failure. 2. Acute on chronic systolic congestive heart failure. 3. Atrial fibrillation. 4. Metabolic encephalopathy. 5. Obstructive sleep apnea. PLAN: 1. The patient to have an AV fistula completed tomorrow. 2. Continue dialysis as needed to the temporary catheter. 3. Wean oxygen. 4. Out of bed as tolerated. Humberto Archer MD [facility]/MODL /[id number]
--- NOTE | 2019-05-22 15:24 | Progress Note ---
DATE: Cardiology Progress Note SUBJECTIVE: The patient denies any shortness of breath or chest pain. OBJECTIVE: VITAL SIGNS: Temperature 97.5, heart rate is 86, respirations are 20, blood pressure is 100/80, and oxygen saturation 95% on 4 L nasal cannula. GENERAL: She is a chronically ill-appearing woman, lying comfortably in bed, no apparent distress. CARDIOVASCULAR: Irregularly irregular, normal rate. LUNGS: Diminished breath sounds at the bases. ABDOMEN: Soft, nontender, nondistended. EXTREMITIES: Trace edema. CARDIOVASCULAR MEDICATIONS: Reviewed. LABORATORY DATA: Reviewed. White blood cell count is 15, hemoglobin 14. Telemetry monitoring was interpreted and reviewed by myself and shows atrial fibrillation with controlled ventricular response. This was used for diagnostic purposes. IMPRESSION: 1. Paroxysmal atrial fibrillation. 2. Acute on chronic diastolic heart failure. 3. Acute on chronic kidney disease, currently on dialysis. 4. Coronary artery disease. 5. Hypertension. 6. Hyperlipidemia. 7. Morbid obesity. RECOMMENDATIONS: Heart rate remains controlled on current cardiovascular medications. Antiplatelets and anticoagulants were held for possible fistula formation. Continue diuretic regimen per Nephrology. Volume removal with hemodialysis. We will continue to monitor on telemetry. DO TIMOTHY Mullen/MITCHL /[id number]
--- NOTE | 2019-05-22 18:30 | NUR ---
PT RESTING COMFORTABLY, RESPIRATIONS EVEN AND NONLABORED. NO SIGNS OF DISTRESS.
[2019-05-22] MEDS: TRAZODONE HCL 50 MG TAB PO SCH (21:50)
[2019-05-23] VITALS (9 sets, daily range): BP systolic 107–163; BP diastolic 59–123
[2019-05-23] MEDS: HYDROMORPHONE 1MG/1ML INJ IV PRN ×2 (01:00→16:37)
[2019-05-23] MEDS: IPRATROPIUM BROMIDE 0.02% 2.5 ML NEB NEB SCH ×7 (03:26→23:50)
[2019-05-23 04:52] LABS: BASOPHILS # (AUTO) 0.1 (0.0-0.1); BASOPHILS % 0.5 % (0.0-1.0); EOSINOPHILS # (AUTO) 0.1 (0.0-0.4); EOSINOPHILS % 0.4 % (0.0-6.0); HEMOGLOBIN 14.7 g/dL (12.0-16.0); LYMPHOCYTES # (AUTO) 2.4 (1.0-3.2); LYMPHOCYTES % 10.3 % (18.0-39.1); MEAN CORPUSCULAR HEMOGLOBIN 28.9 pg (28-32); MEAN CORPUSCULAR HGB CONC 34.2 g/dL (31-35); MEAN CORPUSCULAR VOLUME 84.6 fL (81-99); MONOCYTES # (AUTO) 2.1 (0.2-0.8); MONOCYTES % 9.2 % (4.4-11.3); NEUTROPHILS # (AUTO) 17.9 (2.1-6.9); PLATELET COUNT 749 x10e3/uL (140-360); RED BLOOD COUNT 5.08 x10e6/uL (3.6-5.1); RED CELL DISTRIBUTION WIDTH 14.5 % (11.7-14.4)
[2019-05-23 05:07] LABS: ANION GAP 24.7 mmol/L (8-16); CALCIUM 9.7 mg/dL (8.4-10.2); CREATININE, SERUM 7.74 mg/dL (0.57-1.11); POTASSIUM 3.7 mmol/L (3.5-5.1)
[2019-05-23] MEDS: NYSTATIN SUSPENSION 5 ML UDC PO SCH ×3 (05:48→17:27)
[2019-05-23] MEDS: FUROSEMIDE INJ 10 MG/ML 4 ML VIAL IV SCH ×2 (05:48→14:56)
--- NOTE | 2019-05-23 07:00 | NUR ---
RECEIVED PATIENT AWAKE IN BED NO S/S OF DISTRESS. BED LOW, WHEELS LOCKED, SIDE RAILS X2. CALL LIGHT IN REACH WILL CONTINUE TO MONITOR PATIENT.
--- NOTE | 2019-05-23 07:08 | NUR ---
NOTIFIED DR. ACOSTA REGARDING WBC 23.25, NO NEW ORDER.
[2019-05-23 07:29] LABS: EOSINOPHILS % (MANUAL) 1 % (0-7); LYMPHOCYTES % (MANUAL) 9 % (19-48); MONOCYTES % (MANUAL) 10 % (3.4-9.0); NEUTROPHILS % (MANUAL) 80 % (40-74)
[2019-05-23 07:30] LABS: RBC MORPHOLOGY COMMENT NORMAL
[2019-05-23 07:31] LABS: PLATELET ESTIMATE MODERATELY INCREASED; PLATELET MORPHOLOGY COMMENT NORMAL
[2019-05-23] MEDS: OXYBUTYNIN CHLORIDE 5 MG TAB PO SCH ×2 (09:00→16:36)
[2019-05-23] MEDS: LINACLOTIDE 145 MCG CAPSULE PO SCH ×2 (09:00→16:36)
[2019-05-23] MEDS: ISOSORBIDE MONONITRATE 30 MG TAB CR PO SCH ×2 (09:00→16:36)
[2019-05-23] MEDS: DICYCLOMINE HCL 10 MG CAP PO SCH ×2 (09:00→16:36)
[2019-05-23] MEDS: METOPROLOL SUCCINATE 50 MG TAB XL PO SCH (09:00)
[2019-05-23] MEDS: AMIODARONE HCL 200 MG TAB PO SCH ×2 (09:00→16:36)
[2019-05-23] MEDS: DULOXETINE HCL 30 MG DELAYED RELEASE PO SCH ×2 (09:00→16:36)
[2019-05-23] MEDS ORDERED: MIDAZOLAM HCL 2 MG/2 ML VIAL ONE (10:26)
[2019-05-23] MEDS ORDERED: HEPARIN SOD (PORCINE) 1000 UNIT/ML SDV ONE (10:26)
[2019-05-23] MEDS ORDERED: FENTANYL CITRATE/PF 100MCG/2 ML INJ ONE (10:26)
--- NOTE | 2019-05-23 10:29 | NUR ---
PATIENT LEFT TO RADIOLOGY AT THIS TIME FOR TUNNELED CATH.
[2019-05-23] MEDS ORDERED: LIDOCAINE HCL 1% LOCAL INJ 20 ML VIAL ONE (10:55)
[2019-05-23] MEDS ORDERED: SODIUM CHLORIDE 0.9% 250ML 250 ML ONE (10:55)
--- NOTE | 2019-05-23 11:28 | Progress Note ---
DATE: SUBJECTIVE: Urine output continues to be low. She has however been more stable on dialysis, stable. Has not had to go back to the ICU. PHYSICAL EXAMINATION: VITAL SIGNS: Temperature 96.9, pulse 85, blood pressure 114/68. GENERAL: Obese, but weak appearing. CHEST: Clear. Diminished breath sounds at bases. EXTREMITIES: Trace edema. : Awan in place. LABORATORY DATA: Creatinine is 7, BUN 60, serum CO2 18, sodium 133. ASSESSMENT: 1. End-stage renal disease. 2. Diabetic end-organ damage on single kidney. 3. Fluid overload. 4. Acidosis. PLAN: Definitive treatment of hemodialysis today 4 hour run, 3 potassium bath, blood flow rate 350 mL/minute, dialysate flow rate 700 mL/minute. Plan to take off 3-4 L of fluid. Await tunneled dialysis catheter, access elevation/transposition, potential transfer to rehab. We will follow along. MD PHYLLIS Rubin/ZOE /[id number]
--- NOTE | 2019-05-23 11:45 | NUR ---
PATIENT BACK FROM RADIOLOGY. NO S/S OF DISTRESS. CALL LIGHT IN REACH WILL CONTINUE TO MONITOR PATIENT.
[2019-05-23] MEDS: LIOTHYRONINE SODIUM 5 MCG TAB PO SCH (12:45)
[2019-05-23] MEDS: PANTOPRAZOLE SOD 40 MG TABEC PO SCH (12:45)
--- NOTE | 2019-05-23 14:51 | Diagnostic Imaging Report ---
Chest, portable AP view History: Respiratory failure Comparison: 05/18/2019 IMPRESSION: The heart is mildly enlarged, stable. Left internal jugular tunneled hemodialysis catheter and right IJ chest port are appropriately positioned. There is mild interstitial edema. Bibasilar atelectasis is present. No focal consolidation, pleural effusion, or pneumothorax. Signed by: Yayo Matute MD on 05/23/2019 2:48 PM
[2019-05-23] MEDS: ONDANSETRON HCL INJ 2MG/ML 2ML 2 MG/ML VIAL IV PRN ×2 (16:37→22:32)
--- NOTE | 2019-05-23 17:10 | Consultation ---
DATE OF CONSULTATION: 05/23/2019 REASON FOR EVALUATION: End-stage renal failure, need for permanent dialysis access. SUBJECTIVE: Breathing comfortably. No chest pain. PHYSICAL EXAMINATION: CARDIAC: Shows regular rate and rhythm. LUNGS: Clear to auscultation and percussion bilaterally. EXTREMITIES: 1+ edema to the knees bilaterally. SKIN: Ecchymoses on arms, stable. NEUROLOGIC: Alert and oriented x3. LABORATORIES: Tunneled dialysis catheter to be inserted today. IMPRESSION: Off anticoagulation. We will schedule fistula creation over the next day or two. MD MARIUM Ortega/ZOE /[id number]
--- NOTE | 2019-05-23 19:20 | NUR ---
RECEIVED THE PATIENT IN REPORT.LYEING IN THE BED.CASTREJON IN PLACE.RECTAL TUBE IS IN PLACE.BED ALARM ON.BED LOCKED AND IN LOWEST POSITION.PHONE AND CALL LIGHT WITHIN REACH.INSTRUCTED TO CALL FOR ASSISTANCE NEEDED.NO RESP.DISTRESS.
--- NOTE | 2019-05-23 22:02 | Progress Note ---
DATE: 05/23/2019 SUBJECTIVE: The patient is confused. OBJECTIVE: VITAL SIGNS: Temperature 96.2 degrees, pulse 86, respiratory rate 20, blood pressure 112/65, oxygen saturation 94% on 4 L nasal cannula. GENERAL: Morbidly obese woman, in no acute distress. Awake, but confused. LUNGS: Decreased breath sounds at the bases, otherwise clear to auscultation. No wheezes or crackles. CARDIOVASCULAR: Irregularly irregular. Normal rate. No murmur. Normal S1, S2. ABDOMEN: Soft, nontender. EXTREMITIES: No edema. CARDIAC MEDICATIONS: Amiodarone 200 mg p.o. b.i.d., isosorbide mononitrate 90 mg p.o. b.i.d., furosemide 80 mg IV q.8 hours, liothyronine 25 mcg p.o. daily, metoprolol succinate 200 mg p.o. daily. LABORATORY DATA: WBC 23.25, hemoglobin 14.7, hematocrit 43, platelets 749. Sodium 133, potassium 3.7, chloride 94, CO2 18, BUN 60, creatinine 7.74. Telemetry was personally reviewed and interpreted revealing atrial fibrillation, rate controlled. IMPRESSION: 1. Paroxysmal atrial fibrillation. 2. Oxaii-al-oszrcwr diastolic heart failure. 3. Wwviq-qb-wyrozzb current kidney disease, now initiated on hemodialysis. 4. Coronary artery disease. 5. Hypertension. 6. Hyperlipidemia. 7. Morbid obesity. RECOMMENDATIONS: The patient is status post tunneled dialysis catheter placement this morning. Her heart rate is controlled. Continue to monitor on telemetry. Anti-platelets and anticoagulant therapy has been held for fistula surgery. Resume once hemostasis is achieved from a surgical standpoint. Volume management per Nephrology given kwbly-oe-mgfvnqy kidney disease and initiation on hemodialysis. Continue current cardiac medications otherwise. Thank you for this consult. We will continue to follow. Nisa Hicks MD ABS/MODL /[id number]
[2019-05-24] VITALS (7 sets, daily range): BP systolic 102–137; BP diastolic 61–84
[2019-05-24] MEDS: TRAZODONE HCL 50 MG TAB PO SCH ×2 (00:06→21:29)
[2019-05-24] MEDS: FUROSEMIDE INJ 10 MG/ML 4 ML VIAL IV SCH ×4 (00:06→21:29)
[2019-05-24] MEDS: NYSTATIN SUSPENSION 5 ML UDC PO SCH ×5 (00:06→23:16)
--- NOTE | 2019-05-24 00:07 | NUR ---
DIALYSIS COMPLETED .2 LITRE REMOVED.MEDICATED WITH DILAUDID 1MG IV.
[2019-05-24] MEDS: HYDROMORPHONE 1MG/1ML INJ IV PRN ×2 (00:10→18:01)
[2019-05-24] MEDS: IPRATROPIUM BROMIDE 0.02% 2.5 ML NEB NEB SCH ×5 (03:35→20:00)
--- NOTE | 2019-05-24 05:30 | NUR ---
Blood ratna from port o cath and sent to the lab.
[2019-05-24 06:05] LABS: BASOPHILS # (AUTO) 0.1 (0.0-0.1); BASOPHILS % 0.4 % (0.0-1.0); EOSINOPHILS % 0.1 % (0.0-6.0); HEMOGLOBIN 14.9 g/dL (12.0-16.0); LYMPHOCYTES # (AUTO) 1.4 (1.0-3.2); LYMPHOCYTES % 4.8 % (18.0-39.1); MEAN CORPUSCULAR HEMOGLOBIN 28.8 pg (28-32); MEAN CORPUSCULAR HGB CONC 33.9 g/dL (31-35); MEAN CORPUSCULAR VOLUME 85.1 fL (81-99); MONOCYTES % 7.1 % (4.4-11.3); NEUTROPHILS # (AUTO) 23.8 (2.1-6.9); NEUTROPHILS % 85.5 % (38.7-80.0); PLATELET COUNT 719 x10e3/uL (140-360); RED BLOOD COUNT 5.17 x10e6/uL (3.6-5.1); RED CELL DISTRIBUTION WIDTH 14.5 % (11.7-14.4)
[2019-05-24 06:19] LABS: ALBUMIN/GLOBULIN RATIO 0.7 (0.8-2.0); ANION GAP 21.4 mmol/L (8-16); CALCIUM 9.2 mg/dL (8.4-10.2); CREATININE, SERUM 4.88 mg/dL (0.57-1.11); POTASSIUM 3.4 mmol/L (3.5-5.1)
--- NOTE | 2019-05-24 06:57 | NUR ---
Bed side shift report given to oncoming Rn.stable condition.
--- NOTE | 2019-05-24 06:58 | NUR ---
Bed side shift report given to oncoming Rn.stable condition.
--- NOTE | 2019-05-24 07:00 | NUR ---
RECEIVED PATIENT AWAKE IN BED NO S/S OF DISTRESS. BED LOW, WHEELS LOCKED, SIDE RAILS X2. CALL LIGHT IN REACH WILL CONTINUE TO MONITOR PATIENT.
[2019-05-24] MEDS: ISOSORBIDE MONONITRATE 30 MG TAB CR PO SCH ×2 (09:29→17:40)
[2019-05-24] MEDS: LINACLOTIDE 145 MCG CAPSULE PO SCH ×2 (09:29→17:40)
[2019-05-24] MEDS: DICYCLOMINE HCL 10 MG CAP PO SCH ×2 (09:29→17:39)
[2019-05-24] MEDS: AMIODARONE HCL 200 MG TAB PO SCH ×2 (09:29→17:39)
[2019-05-24] MEDS: PANTOPRAZOLE SOD 40 MG TABEC PO SCH (09:29)
[2019-05-24] MEDS: DULOXETINE HCL 30 MG DELAYED RELEASE PO SCH ×2 (09:29→17:39)
[2019-05-24] MEDS: METOPROLOL SUCCINATE 50 MG TAB XL PO SCH (09:29)
[2019-05-24] MEDS: OXYBUTYNIN CHLORIDE 5 MG TAB PO SCH ×2 (09:29→17:39)
[2019-05-24] MEDS: LIOTHYRONINE SODIUM 5 MCG TAB PO SCH (09:29)
--- NOTE | 2019-05-24 10:03 | NUR ---
Notified Dr. Torres of elevated white blood cell count and platelets. New order to consult Dr. Infante. New orders implemented.
--- NOTE | 2019-05-24 11:26 | Progress Note ---
DATE: 05/24/2019 Cardiology Progress Note SUBJECTIVE: The patient is confused. OBJECTIVE: VITAL SIGNS: Temperature 98.4 degrees, pulse 85, respiratory rate 20, blood pressure 137/76, and oxygen saturation 96% on 4 L nasal cannula. GENERAL: Morbidly obese woman, in no acute distress. Awake, but confused. LUNGS: Decreased breath sounds at the bases, otherwise clear to auscultation. No wheezes or crackles. CARDIOVASCULAR: Irregularly irregular. Normal rate. No murmur. Normal S1 and S2. ABDOMEN: Soft and nontender. EXTREMITIES: No edema. CARDIAC MEDICATIONS: Amiodarone 200 mg p.o. b.i.d., metoprolol succinate 200 mg p.o. daily, levothyroxine 25 mcg p.o. daily, isosorbide mononitrate 90 mg p.o. b.i.d., and furosemide 80 mg IV q.8 hours. LABORATORY DATA: WBC 27.91, hemoglobin 14.9, hematocrit 44, and platelets 719. Sodium 134, potassium 3.4, chloride 95, CO2 21, BUN 28, and creatinine 4.88. Telemetry was personally reviewedand interpreted, revealing atrial fibrillation, rate controlled. IMPRESSION: 1. Paroxysmal atrial fibrillation. 2. Bfyax-in-mtcnmpp diastolic heart failure. 3. Jgzou-ui-thdnher kidney disease, now initiated on hemodialysis. 4. Coronary artery disease. 5. Hypertension. 6. Hyperlipidemia. 7. Morbid obesity. RECOMMENDATIONS: The patient is status post tunneled dialysis catheter placement. Volume management per Nephrology given initiation on hemodialysis. Monitor the patient closely on telemetry. Her rate is controlled. Continue current cardiac medications. Antiplatelet and anticoagulant therapy have been held for fistula surgery. Resume once hemostasis is achieved from a surgical standpoint. Thank you for this consult. We will continue to follow. Nisa Hicks MD ABS/MODL /[id number]
--- NOTE | 2019-05-24 14:52 | NUR ---
Dr. Arora rounding on patient. New order for urine culture and dc Awan. New orders implemented.
--- NOTE | 2019-05-24 15:13 | NUR ---
CALLED AND LEFT MESSAGE TO SPEAK WITH ABOUT OPTIONS FOR DISCHARGE, LEFT NUMBER TO CONTACT.
--- NOTE | 2019-05-24 15:20 | NUR ---
Removed patients Awan catheter. Catheter tip intact on removal. Patient due to void.
--- NOTE | 2019-05-24 16:10 | NUR ---
Nutrition Screen Note RD Recommendation for Physician: - Continue renal diet - Continue Ensure Enlive TID - Encourage PO intake Plan of Care: RD following, monitoring for tolerance and adequacy Nutrition reason for involvement: follow up Primary Diagnose(s): acute on chronic congestive heart failure, COPD exacerbation, CKD stage IV PMH: COPD, HTN, HLD, IBS, AFib, chronic constipation, low back pain, anxiety, sleep apnea Ht: 61in Wt: 229.5 (05/19) 248.06lb (05/14) BMI: 43.4 kg/m2 IBW: 105lb RD Assessment: 05/23: Follow up. Pt s/p TDC placement today for HD, pt to receive HD on MWF per am MDR. Pt reports continued poor intake, MD ordered Ensure supplements- pt states that she has consumed 1.5 Ensure Enlive today. Noted 0-75% intake per chart. Pt reports altered taste changes and does not like the renal restrictions, explained the purpose of the diet restrictions. Pt slightly confused at time of visit, diet education not appropriate. Labs and meds reviewed. Chart reviewed. Will continue to monitor. (05/19) Follow up. Pt is receiving dialysis at this time due to acute on chronic renal failure. Pt reports eating <50% of her meals. Pt also declared she has been having diarrhea. Offered pt a nutrition supplement due to poor intake, but pt declined. Will continue to monitor. (05/14) Chart reviewed. Labs and meds reviewed. 63yo F, who was admitted for CHF. Currently on lasix. Stage IV CKD - not on dialysis. Visited pt in the room. Pt reported decreased appetite for 2 years due to gastroparesis. Pt contributed her weight gain to fluid retention. Pt denied any nausea or vomiting. No known food allergy. Pt denied any chewing or swallowing difficulty. Pt appeared to be morbidly obese and on strict I&O. Obtained food preferences. Will re-evaluate when pt feels better. Current Diet: Renal diet Malnutrition Evaluation (05/14) The patient does not meet criteria for a specified degree of malnutrition at this time. Will re-evaluate at follow-up as appropriate. Diet Education Needs Assessment: Diet education not indicated. Nutrition Care Level: moderate Signed: Katelynn Pastor RD, LD, [facility] Addendum: 05/24/19 at 1620 by Katelynn Pastor DIET Nutrition Care Level: Low Katelynn Pastor RD, LD, [facility]
[2019-05-24] MEDS: ONDANSETRON HCL INJ 2MG/ML 2ML 2 MG/ML VIAL IV PRN (18:01)
--- NOTE | 2019-05-24 19:21 | NUR ---
Received bedside report from day nurse. Patient resting in bed, no s/s of distress at this time. All safety measures in place. Will continue to monitor. Addendum: 05/30/19 at 1940 by Ofelia García RN Dialysis in progress.
[2019-05-25] VITALS (21 sets, daily range): BP systolic 73–130; BP diastolic 49–95
--- NOTE | 2019-05-25 00:31 | NUR ---
Bladder scan showing 0 ml residual volume. Will continue to monitor.
--- NOTE | 2019-05-25 02:35 | Progress Note ---
DATE: 05/24/2019 REASON FOR EVALUATION: End-stage renal failure, need for permanent dialysis access. REQUESTED BY: Yehuda Arenas MD SUBJECTIVE: Breathing comfortably. No chest pain. Tolerating dialysis. PHYSICAL EXAMINATION: CARDIAC: Regular rate and rhythm. Normal S1, S2. LUNGS: Clear to auscultation and percussion bilaterally. EXTREMITIES: 1+ edema to the knees bilaterally. Unchanged. SKIN: Ecchymoses on arms, which are stable. NEUROLOGIC: Cranial nerves 2 through 12 intact. Alert and oriented, although somewhat confused as to place. LABORATORY DATA: White count 5.17, hemoglobin 14.9, hematocrit 44.0, platelet count 719,000. Sodium 134, potassium 3.4, BUN 28, creatinine 4.88. IMPRESSION: Stable, off anticoagulation. AV fistula scheduled for this . MD HERNAN OrtegaL/MODL /[id number]
[2019-05-25] MEDS: IPRATROPIUM BROMIDE 0.02% 2.5 ML NEB NEB SCH ×5 (04:25→23:50)
--- NOTE | 2019-05-25 05:18 | NUR ---
Dr. Torres here to see patient. Received orders to draw CBC and CMP.
[2019-05-25] MEDS: FUROSEMIDE INJ 10 MG/ML 4 ML VIAL IV SCH ×3 (05:25→22:04)
--- NOTE | 2019-05-25 05:31 | NUR ---
Repeat bladder scan still showing 0 ml. Will continue to monitor.
[2019-05-25 05:40] LABS: BASOPHILS # (AUTO) 0.1 (0.0-0.1); BASOPHILS % 0.2 % (0.0-1.0); EOSINOPHILS % 0.1 % (0.0-6.0); HEMATOCRIT 42.2 % (34.2-44.1); HEMOGLOBIN 14.6 g/dL (12.0-16.0); LYMPHOCYTES % 6.3 % (18.0-39.1); MEAN CORPUSCULAR HEMOGLOBIN 28.6 pg (28-32); MEAN CORPUSCULAR HGB CONC 34.6 g/dL (31-35); MEAN CORPUSCULAR VOLUME 82.7 fL (81-99); MONOCYTES # (AUTO) 2.3 (0.2-0.8); MONOCYTES % 7.3 % (4.4-11.3); NEUTROPHILS # (AUTO) 26.2 (2.1-6.9); NEUTROPHILS % 84.2 % (38.7-80.0); PLATELET COUNT 727 x10e3/uL (140-360); RED CELL DISTRIBUTION WIDTH 14.3 % (11.7-14.4)
[2019-05-25 06:03] LABS: ALBUMIN 2.9 g/dL (3.5-5.0); ALBUMIN/GLOBULIN RATIO 0.6 (0.8-2.0); ANION GAP 20.6 mmol/L (8-16); CALCIUM 9.6 mg/dL (8.4-10.2); CREATININE, SERUM 6.33 mg/dL (0.57-1.11); POTASSIUM 3.6 mmol/L (3.5-5.1)
[2019-05-25] MEDS: NYSTATIN SUSPENSION 5 ML UDC PO SCH ×3 (06:10→17:55)
[2019-05-25] MEDS: HYDROMORPHONE 1MG/1ML INJ IV PRN ×2 (06:15→17:50)
[2019-05-25] MEDS: ONDANSETRON HCL INJ 2MG/ML 2ML 2 MG/ML VIAL IV PRN (06:15)
--- NOTE | 2019-05-25 07:00 | NUR ---
pt sleeping easily aroused, updated on poc vocied understanding, denies pain at this time, L upper chest hd cath, r port a cath, clamped, call light in reach will continue to monitor
--- NOTE | 2019-05-25 07:01 | NUR ---
Bedside report given to day nurse. Patient resting in bed, no s/s of distress at this time. All safety measures in place. Family at bedside.
--- NOTE | 2019-05-25 07:58 | NUR ---
paged dr díaz re: low bp and elevated wbc's awaiting call back
--- NOTE | 2019-05-25 08:09 | NUR ---
spoke with dr díaz new orders received,
[2019-05-25] MEDS ORDERED: SODIUM CHLORIDE 0.9% 1000ML 500 ML IV ONE (08:15)
--- NOTE | 2019-05-25 08:30 | NUR ---
spoke with dr mittal updated on low bp, wbc count, new orders noted
[2019-05-25] MEDS ORDERED: DIATRIZOATE MEGL/DIATRIZOA SOD 30 ML BTL PO ONE (08:47)
[2019-05-25] MEDS: OXYBUTYNIN CHLORIDE 5 MG TAB PO SCH ×2 (09:00→17:52)
[2019-05-25] MEDS: PANTOPRAZOLE SOD 40 MG TABEC PO SCH (09:00)
[2019-05-25] MEDS: DICYCLOMINE HCL 10 MG CAP PO SCH ×2 (09:00→17:52)
[2019-05-25] MEDS: METOPROLOL SUCCINATE 50 MG TAB XL PO SCH (09:00)
[2019-05-25] MEDS: ISOSORBIDE MONONITRATE 30 MG TAB CR PO SCH ×2 (09:00→14:43)
[2019-05-25] MEDS: LINACLOTIDE 145 MCG CAPSULE PO SCH ×2 (09:00→17:54)
[2019-05-25] MEDS: DULOXETINE HCL 30 MG DELAYED RELEASE PO SCH ×2 (09:00→17:52)
[2019-05-25] MEDS ORDERED: MEROPENEM 500MG 500 MG in SODIUM CHLORIDE 0.9% 50ML 50 ML IV SCH (09:00)
--- NOTE | 2019-05-25 09:50 | NUR ---
dr naik at bedside, pt sees dr guadarrama, informed Dr. díaz re: pt oncologist is Dr. Guadarrama orders for consult received and pt placed in icu.
--- NOTE | 2019-05-25 10:15 | NUR ---
report given to GLUING MACHINE ADJUSTER, pt transferred to 193 with all belongings, attempted to notify no answer message left to call back.
[2019-05-25] MEDS ORDERED: NOREPINEPHRINE 8 MG/D5W 250 ML 250 ML ONE (10:52)
[2019-05-25] MEDS: NOREPINEPHRINE 8 MG/D5W 250 ML 250 ML IV SCH (10:58)
[2019-05-25 11:16] LABS: LYMPHOCYTES % (MANUAL) 7 % (19-48); NEUTROPHILS % (MANUAL) 93 % (40-74)
--- NOTE | 2019-05-25 11:18 | NUR ---
RECEIVED VOICEMAIL FROM TO RETURN CALL, CALLED HIM BACK AND GOT VOICE MAIL. LEFT MESSAGE.
--- NOTE | 2019-05-25 11:28 | Diagnostic Imaging Report ---
Conversion of a nontunneled to tunneled dialysis catheter, 05/23/2019. History: Renal failure. Modality: Fluoroscopy. Sedation: Versed 1.0 mg and fentanyl 50 mcg was given intravenously for conscious sedation. Vital signs were monitored throughout the procedure by a nurse, and remained stable. Physician intra-service time was 15 minutes. Take Away Worker: Giovani. Tool Room Gear Machine Operator: None. Approach: Left internal jugular vein Estimated blood loss: < 5 cc. Specimen: None. Fluoroscopy Time: 0.2 min. Dose (Ka,r): 2.28 mGy. Technique: Informed written consent was obtained. Discussion of risks, benefits, and alternatives were made with the patient. The patient expressed understanding and agreed to proceed. All elements maximal sterile barrier technique was utilized for this procedure, including utilization of sterile scrub solution for skin prep, a large sterile sheet to cover the areas of the patient that were not prepped, and hand hygiene, mask, head covering, and sterile gown for performing radiologist and scrub technologist. The skin was anesthetized with 2% lidocaine. A 0.35 inch diameter guidewire was inserted through the existing nontunneled dialysis catheter into the IVC. A subcutaneous tunnel was created in the left anterior chest wall by blunt dissection. A 23 cm 14.5 Yoruba cuffed dialysis catheter was brought through the tunnel. The existing nontunneled hemodialysis catheter was then removed over the guidewire. A peel-away sheath was placed in the left IJ vein and the catheter was advanced through the sheath, with its distal tip terminating in the right atrium. The peel-away sheath was removed. The ports were flushed and aspirated easily following placement. The catheter was sutured to the skin with 2-0 silk to secure its placement. The small jugular incision site was closed using resorbable suture. Vital signs were monitored throughout the procedure by a nurse, and remained stable. The patient tolerated the procedure well and left the department in the same condition. Results: Spot radiograph of the chest demonstrates the new dialysis catheter to lie in the expected position with its tip overlying the superior right atrium. Impression: Successful, uncomplicated conversion of a nontunneled left internal jugular to a tunneled dialysis catheter. Signed by: Yayo Matute MD on 05/23/2019 11:40 AM
[2019-05-25] MEDS: AMIODARONE HCL 200 MG TAB PO SCH ×2 (11:31→17:52)
--- NOTE | 2019-05-25 12:06 | NUR ---
spoke with katherine pt informed of pt transfer to icu rm 193.
[2019-05-25] MEDS: VANCOMYCIN 250MG/5ML ORAL SOLN PO SCH ×2 (12:32→17:55)
[2019-05-25] MEDS: LIOTHYRONINE SODIUM 5 MCG TAB PO SCH (12:32)
[2019-05-25] MEDS ORDERED: DIGOXIN INJ 0.25 MG/ML 2 ML AMP IV ONE (12:45)
--- NOTE | 2019-05-25 13:07 | NUR ---
Pt transferred from MS1 to ICU d/t hypotension for higher level of care. Pt will be placed on PT hold at this time and will need new orders to resume skilled PT. Thank you. Addendum: 05/25/19 at 1310 by MUNA CERON DEPUTY ASSESSOR Amended: Links added.
[2019-05-25] MEDS: DIPHENHYDRAMINE HCL INJ 50 MG/ML VIAL IV PRN (13:30)
[2019-05-25] MEDS: NITROGLYCERIN 0.4 MG SUBL SL PRN ×2 (13:30→17:45)
[2019-05-25] MEDS ORDERED: SODIUM CHLORIDE 0.9% 250ML 250 ML ONE (13:37)
[2019-05-25] MEDS: MEROPENEM 500MG/ NS 50ML 50 ML IV SCH (13:52)
--- NOTE | 2019-05-25 13:59 | NUR ---
1220: PT BEING DIALYZED AT THIS TIME, HR INTO THE 140'S WILL SUSTAIN FOR ABOUT 5 SECONDS THEN STAY IN 120'S. PAGED WAITING CALL BACK 1245:SPOKE TO RECEIVED ORDERS, 1255: DIGOXIN GIVE, PT BEGAN TO COMPLAIN OF SPASMS 1300: PT BEGAN TO COMPLAIN OF CHEST PAIN THAT RADIATES TO L SIDE , DIALYSIS NURSE SPOKE TO ORDERED TO STOP DIALYSIS AT THIS TIME. DIALYSIS STOPPED AT THIS TIME NO FLUID REMOVED. PT TOLERATED ONE HOUR TEN MINUUTES ONLY 1305: SPOKE TO REGARDING CHEST PAIN, RECEIVED ORDERS 1322: NITRO GIVEN FOR CHEST PAIN, WILL MONITOR CLOSELY
[2019-05-25 14:17] LABS: CREATINE KINASE MB 1.4 ng/mL (0-5.0)
[2019-05-25] MEDS: METRONIDAZOLE 500MG/NS 100ML 100 ML IV SCH ×2 (14:37→22:03)
--- NOTE | 2019-05-25 15:30 | NUR ---
NOTIFIED OF ABNORMAL BEATS NOTED, RECEIVED ORDER WILL CONTINUE TO MONITOR CLOSELY
--- NOTE | 2019-05-25 15:31 | Diagnostic Imaging Report ---
EXAM: CT Abdomen and Pelvis WITHOUT intravenous contrast INDICATION: Shortness of breath, abdominal pain, colitis COMPARISON: CT abdomen and pelvis of 09/20/2018 TECHNIQUE: Abdomen and pelvis were scanned utilizing a multidetector helical scanner from the lung base to the pubic symphysis without administration of IV contrast. Coronal and sagittal reformations were obtained. IV CONTRAST: None ORAL CONTRAST: Gastrografin COMPLICATIONS: None RADIATION DOSE: Total DLP: 927 mGy*cm Dose modulation, iterative reconstruction, and/or weight based adjustment of the mA/kV was utilized to reduce the radiation dose to as low as reasonably achievable. FINDINGS: LOWER THORAX: Unchanged partially calcified 1.5 cm left lower lobe pulmonary nodule. Bibasilar dependent subsegmental atelectasis. Diffuse atherosclerotic coronary artery calcifications. HEPATOBILIARY: No focal liver lesion. No biliary ductal dilation. Status post cholecystectomy. Diffuse hepatic steatosis. SPLEEN: Absent. PANCREAS: No focal masses or ductal dilatation. ADRENALS: No adrenal nodules. KIDNEYS/URETERS: Status post right nephrectomy. No left hydronephrosis or renal calculus. 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 PELVIC ORGANS/BLADDER: Hysterectomy. PERITONEUM / RETROPERITONEUM: No free air or fluid. LYMPH NODES: No lymphadenopathy. VESSELS: Moderate atherosclerotic calcifications of the nonaneurysmal abdominal aorta and major branches. GI TRACT: Rectal tube in place. Fluid in the colon. No abnormal bowel thickening. The stomach is filled with fluid and contrast material. No bowel obstruction. BONES AND SOFT TISSUES: No acute osseous injury. Bilateral gluteal injection granulomas. IMPRESSION: No acute findings in the abdomen or pelvis. Signed by: Piotr Oneil MD on 05/25/2019 3:28 PM
[2019-05-25] MEDS: LINEZOLID 600 MG/D5W 300ML 300 ML IV SCH ×2 (15:37→20:18)
[2019-05-25 16:24] LABS: ANION GAP 21.7 mmol/L (8-16); CALCIUM 8.9 mg/dL (8.4-10.2); CREATININE, SERUM 5.2 mg/dL (0.57-1.11); MAGNESIUM 1.7 MG/DL (1.3-2.1); POTASSIUM 3.7 mmol/L (3.5-5.1)
[2019-05-25 16:30] LABS: CREATINE KINASE MB 2.5 ng/mL (0-5.0)
--- NOTE | 2019-05-25 17:23 | Consultation ---
DATE OF CONSULTATION: REASON FOR CONSULTATION: Sepsis, leukocytosis, and diarrhea. HISTORY OF PRESENT ILLNESS: This patient, who I was contacted urgently. She has been here for 12 days. The patient comes into the emergency room on May 13. She has a history of obesity, COPD, hypertension, chronic kidney disease stage 4, on dialysis. She was in usual state of health till 10 days when she came here, when she became shortness of breath, came to see Dr. Torres, diagnosed with COPD exacerbation. She was given oral antibiotics at home, but her shortness of breath became worse. She came to the emergency room where she was admitted with shortness of breath, acute exacerbation of congestive heart failure and COPD. The patient, who has history of COPD, hypertension, irritable bowel syndrome, atrial fibrillation, chronic constipation, low back pain, anxiety, UTI, fungal infection, sleep apnea, obesity, mixed connective tissue disorder, 3 sections before, abdominal hysterectomy, carpal tunnel repair. ALLERGIES: APPARENTLY MULTIPLE INCLUDING KEFLEX, MYCIN, PENICILLIN, PRIMAXIN, SULFA, TETRACYCLINE. SOCIAL HISTORY: No smoking, drug abuse, or alcohol abuse. PAST MEDICAL HISTORY: She also have history of arthritis, history of heart disease, history of sleep apnea, history of nephrectomy, splenectomy, appendectomy, tonsillectomy, and adenoidectomy. FAMILY HISTORY: Could not be obtained. The patient was admitted. She was seen by several consultants; Renal, Cardiology, and Pulmonary. Her blood culture on admission was negative. Her urine cultures on 05/23 was gram-negative bacilli. Her white count when she first came was 12.7, went up to 31.06, hemoglobin 14, and hematocrit 42. Her sodium 133, potassium 3.6, and creatinine 6.3. MEDICATION LIST: Reviewed. She is currently transferred to the intensive care unit, started on epinephrine. She has been on Lasix and Cordarone. When I received a consult, I started the patient on Zyvox, Flagyl, meropenem, and oral vancomycin. She currently seems a little better. The patient has no complaints. REVIEW OF SYSTEMS: At present time, she is just weak, diarrhea. As mentioned above, there is no pain. HEENT: There are no significant changes. GI: There is no nausea, no vomiting, no diarrhea. CARDIAC: . All other systems within normal limits. PHYSICAL EXAMINATION: GENERAL: She is currently alert and oriented. Does not seem to be in acute distress. VITAL SIGNS: Stable, currently afebrile. HEENT: She is not icteric. NECK: Supple. CHEST: Clear. HEART: . ABDOMEN: Soft. Bowel sounds present. EXTREMITIES: No edema. IMPRESSION: 1. Sepsis, concerned about colitis, concerned about Clostridium difficile, not so sure . I would recommend to obtain blood cultures, CT abdomen and pelvis with oral contrast. Continue above antibiotic. Obtain stools for Clostridium difficile. We will recheck CBC, recheck chem panel. Check amylase and lipase. 2. Chronic kidney disease. 3. Septic shock. Agree with supportive care. 4. Obesity. 5. History of chronic obstructive pulmonary disease. 6. Anemia of chronic disease. 7. We will follow with you. Thank you for asking me to see this patient. MD RUBEN Mauricio/[place] /[id number]
--- NOTE | 2019-05-25 17:23 | Progress Note ---
DATE: 05/25/2019 Cardiology Progress Note SUBJECTIVE: The patient was transferred to the ICU this morning due to hypotension for which she has now been started on Levophed drip. She developed atrial fibrillation with rapid ventricular response while on hemodialysis. Due to poorly-controlled heart rate hemodialysis was stopped. The patient reports she developed chest pain after cessation of dialysis. This was associated with shortness of breath. OBJECTIVE: VITAL SIGNS: Temperature 98 degrees, pulse 108, respiratory rate 27, blood pressure 95/69, oxygen saturation 96% on 4 L nasal cannula. GENERAL: Morbidly obese woman, chronically ill-appearing, awake, mildly distressed. LUNGS: Decreased breath sounds at the bases, otherwise clear to auscultation. No wheezes or crackles. CARDIOVASCULAR: Irregularly irregular, tachycardiac. No murmur. Normal S1, S2. ABDOMEN: Soft, nontender. EXTREMITIES: No edema. CARDIAC MEDICATIONS: Amiodarone 200 mg p.o. b.i.d., Levophed drip, furosemide 80 mg IV q.8 hours, metoprolol succinate 200 mg p.o. daily, isosorbide mononitrate 90 mg p.o. b.i.d. LABORATORY DATA: WBC 31.06, hemoglobin 14.6, hematocrit 42.2, platelets 727. Sodium 133, potassium 3.6, chloride 95, CO2 of 21, BUN 50, creatinine 6.33, troponin 0.074. Telemetry was personally reviewed and interpreted, revealing atrial fibrillation with rapid ventricular response. IMPRESSION: 1. Atrial fibrillation with rapid ventricular response. 2. Chest pain. 3. Hypotension. 4. Leukocytosis. 5. Acute on chronic diastolic heart failure. 6. Acute on chronic kidney disease, now initiated on hemodialysis. 7. Coronary artery disease. 8. Hypertension. 9. Hyperlipidemia. 10. Morbid obesity. RECOMMENDATIONS: Continue supportive care. Monitor patient closely on telemetry. IV digoxin x1 was given for rate control. Hold metoprolol due to hypotension. Continue amiodarone. Trend troponin to rule out myocardial infarction given complaint of chest pain. EKG was done, which revealed atrial fibrillation with rapid response and ST and T-wave abnormalities. Isosorbide mononitrate is currently on hold due to hypotension. Antiplatelet and anticoagulant therapy have been held for fistula surgery. Resume once surgery is performed and hemostasis is achieved from a surgical standpoint. Volume management per Nephrology given initiation on hemodialysis. Evaluation of leukocytosis per Infectious Disease, suspect infectious etiology. Thank you for this consult. We will continue to follow. Nisa Hicks MD ABS/MODL /[id number]
[2019-05-25] MEDS ORDERED: POTASSIUM CHLORIDE 10MEQ EA PO ONE (17:30)
[2019-05-25] MEDS ORDERED: MAGNESIUM SULFATE 2GM/50ML 50 ML IV ONE (17:30)
--- NOTE | 2019-05-25 18:08 | Progress Note ---
DATE: SUBJECTIVE: The patient was transferred back to the intensive care unit because of low blood pressure. She was started on Levophed after receiving some fluids. Her antibiotics were also adjusted by Infectious Disease. PHYSICAL EXAMINATION: VITAL SIGNS: The blood pressure is 95/70 and the pulse is 108. Saturation is 96% on 4 L. HEENT: Shows no facial swelling or erythema. HEART: Regular rate and rhythm with normal S1 and S2. LUNGS: Auscultation of lungs reveals clear breath sounds bilaterally. ABDOMEN: Soft and nontender. There is no rebound or guarding. EXTREMITIES: Shows no leg edema or calf tenderness. There is no cyanosis or clubbing. LABORATORY DATA: White blood cell count is 31 and the hemoglobin is 14.6. The platelet count is 727. BUN to creatinine ratio is 50 to 6.33 and the sodium is 133. The other electrolytes are within normal limits. RADIOGRAPHIC DATA: Chest x-ray shows hemodialysis catheter and left IJ in good position. IMPRESSION: 1. Leukocytosis and sepsis of unclear etiology. 2. Smwxq-tz-kofwuhb renal failure. 3. Metabolic encephalopathy. 4. Urinary tract infection. PLAN: 1. Continue current antibiotics. 2. Await culture results and further input from Infectious Disease. 3. Continue Levophed and wean as tolerated. 4. Dialysis is scheduled again for tomorrow. The patient had difficulty tolerating dialysis. 5. The patient is scheduled to have an AV graft completed for permanent dialysis access. MD ANDRA Haque/MODL /[id number]
[2019-05-25] MEDS ORDERED: VASOPRESSIN 100 UNIT in DEXTROSE 5% 100ML 100 ML IV PRN (18:15)
--- NOTE | 2019-05-25 18:45 | NUR ---
Report received. Assumed care. Assessment done. See interventions. IVs: Vasopressin @ 0.03 units/min or 1.8ml/hr & Levophed @ 2mcg/min or 3.8 ml/hr. O2 per NC @ 4L.
[2019-05-25] MEDS: TRAZODONE HCL 50 MG TAB PO SCH (21:15)
[2019-05-26] VITALS (26 sets, daily range): BP systolic 87–155; BP diastolic 55–118
[2019-05-26] MEDS: NYSTATIN SUSPENSION 5 ML UDC PO SCH ×4 (00:11→18:00)
[2019-05-26] MEDS: VANCOMYCIN 250MG/5ML ORAL SOLN PO SCH ×4 (00:11→18:00)
--- NOTE | 2019-05-26 03:20 | NUR ---
Medicated for c/o pain.
[2019-05-26] MEDS: HYDROMORPHONE 1MG/1ML INJ IV PRN ×3 (03:21→22:55)
[2019-05-26] MEDS: IPRATROPIUM BROMIDE 0.02% 2.5 ML NEB NEB SCH ×6 (03:35→22:01)
--- NOTE | 2019-05-26 05:30 | NUR ---
Dr. Torres here. Spoke with pt & . wants to hold off having AV shunt inserted until Thursday.
[2019-05-26 05:35] LABS: BASOPHILS # (AUTO) 0.1 (0.0-0.1); BASOPHILS % 0.3 % (0.0-1.0); EOSINOPHILS % 0.1 % (0.0-6.0); HEMATOCRIT 41.1 % (34.2-44.1); HEMOGLOBIN 13.8 g/dL (12.0-16.0); LYMPHOCYTES # (AUTO) 1.7 (1.0-3.2); LYMPHOCYTES % 5.4 % (18.0-39.1); MEAN CORPUSCULAR HEMOGLOBIN 28.7 pg (28-32); MEAN CORPUSCULAR HGB CONC 33.6 g/dL (31-35); MEAN CORPUSCULAR VOLUME 85.4 fL (81-99); MONOCYTES # (AUTO) 2.1 (0.2-0.8); MONOCYTES % 6.8 % (4.4-11.3); NEUTROPHILS # (AUTO) 26.3 (2.1-6.9); NEUTROPHILS % 85.3 % (38.7-80.0); PLATELET COUNT 620 x10e3/uL (140-360); RED BLOOD COUNT 4.81 x10e6/uL (3.6-5.1); RED CELL DISTRIBUTION WIDTH 14.6 % (11.7-14.4)
[2019-05-26] MEDS: FUROSEMIDE INJ 10 MG/ML 4 ML VIAL IV SCH ×3 (05:41→22:17)
[2019-05-26] MEDS: METRONIDAZOLE 500MG/NS 100ML 100 ML IV SCH ×3 (05:41→22:17)
[2019-05-26 06:00] LABS: ANION GAP 18.9 mmol/L (8-16); CALCIUM 9.2 mg/dL (8.4-10.2); CREATININE, SERUM 6.07 mg/dL (0.57-1.11); MAGNESIUM 2.5 MG/DL (1.3-2.1); PHOSPHORUS 5.6 MG/DL (2.3-4.7); POTASSIUM 3.9 mmol/L (3.5-5.1)
--- NOTE | 2019-05-26 06:30 | NUR ---
Dr. Braswell's answering service notified of Dr. Torres & pt not wanting surgery today. OR notified.
--- NOTE | 2019-05-26 06:34 | NUR ---
Dr. Braswell returned call. Advised of Dr. Torres & wanting to hold off on surgery at this time. Ordered to keep NPO.
--- NOTE | 2019-05-26 07:18 | NUR ---
AND PATIENT REFUSED BLOOD DRAW FOR UNITS OF BLOOD BEING KEPT ON HOLD FOR SURGERY, STATES WILL NOT BE GOING TO SURGERY THIS DAY
[2019-05-26] MEDS ORDERED: SODIUM CHLORIDE 0.9% 250ML 250 ML IV ONE (07:20)
[2019-05-26] MEDS: DIPHENHYDRAMINE HCL INJ 50 MG/ML VIAL IV PRN (07:30)
[2019-05-26] MEDS: MEROPENEM 500MG/ NS 50ML 50 ML IV SCH (07:56)
[2019-05-26] MEDS: LIOTHYRONINE SODIUM 5 MCG TAB PO SCH (09:00)
[2019-05-26] MEDS: ISOSORBIDE MONONITRATE 30 MG TAB CR PO SCH ×2 (09:00→17:00)
[2019-05-26] MEDS: METOPROLOL SUCCINATE 50 MG TAB XL PO SCH (09:00)
[2019-05-26] MEDS: DULOXETINE HCL 30 MG DELAYED RELEASE PO SCH ×2 (09:18→17:00)
[2019-05-26] MEDS: DICYCLOMINE HCL 10 MG CAP PO SCH ×2 (09:18→17:00)
[2019-05-26] MEDS: AMIODARONE HCL 200 MG TAB PO SCH ×2 (09:18→17:00)
[2019-05-26] MEDS: LINACLOTIDE 145 MCG CAPSULE PO SCH ×2 (09:19→17:00)
[2019-05-26] MEDS: OXYBUTYNIN CHLORIDE 5 MG TAB PO SCH ×2 (09:19→17:00)
[2019-05-26] MEDS: PANTOPRAZOLE SOD 40 MG TABEC PO SCH (09:19)
[2019-05-26] MEDS: LINEZOLID 600 MG/D5W 300ML 300 ML IV SCH (09:22)
--- NOTE | 2019-05-26 10:16 | Progress Note ---
DATE: SUBJECTIVE: The patient was switched from Levophed to vasopressin yesterday. She has continued on antibiotics. Cultures are pending. She is scheduled for dialysis again today. PHYSICAL EXAMINATION: VITAL SIGNS: The blood pressure is 94/66. Saturation is 98%. HEENT: No facial swelling or erythema. CARDIAC: Regular rate and rhythm with normal S1, S2. LUNGS: Auscultation of the lungs shows rhonchorous breath sounds bilaterally. There is no wheezing. ABDOMEN: Soft, nontender. There is no rebound or guarding. EXTREMITIES: No leg edema or calf tenderness. There is no cyanosis or clubbing. SKIN: No rashes. NEUROLOGICAL: No focal abnormalities. IMPRESSION: 1. Leukocytosis and sepsis of unclear etiology. 2. Urinary tract infection with gram-negative rods. 3. Metabolic encephalopathy. 4. Acute on chronic renal failure. 5. Atrial fibrillation with rapid ventricular response. PLAN: 1. Continue current antibiotics and await culture results. 2. Dialysis again today. 3. Wean pressors as tolerated. 4. The patient will have AV fistula completed once she is stable. Humberto Archer MD [facility]/MODL /[id number]
[2019-05-26] MEDS: NOREPINEPHRINE 8 MG/D5W 250 ML 250 ML IV SCH (10:45)
[2019-05-26] MEDS ORDERED: ALTEPLASE RECOMBINANT 2 MG/2 ML VIAL IV SCH (14:30)
[2019-05-26] MEDS ORDERED: SODIUM CHLORIDE 0.9% 250ML 500 ML IV PRN (15:00)
[2019-05-26] MEDS ORDERED: HEPARIN SOD (PORCINE) 1000 UNIT/ML SDV IV PRN (15:00)
[2019-05-26] MEDS: ONDANSETRON HCL INJ 2MG/ML 2ML 2 MG/ML VIAL IV PRN ×2 (15:37→22:55)
[2019-05-26 16:22] LABS: CREATINE KINASE MB 1.3 ng/mL (0-5.0)
--- NOTE | 2019-05-26 17:53 | Progress Note ---
DATE: 05/26/2019 Cardiology Progress Note SUBJECTIVE: The patient denies chest pain or shortness of breath. She states she does not feel well. Remains on vasopressin and is currently undergoing hemodialysis. OBJECTIVE: VITAL SIGNS: Temperature 98.4 degrees, pulse 73, respiratory rate 18, blood pressure 109/79, and oxygen saturation 99% on 4 L nasal cannula. GENERAL: Morbidly obese woman, in no acute distress. Chronically ill-appearing. LUNGS: Decreased breath sounds at the bases, otherwise clear to auscultation. No wheezes or crackles. CARDIOVASCULAR: Irregularly irregular. Normal rate. No murmur. Normal S1 and S2. ABDOMEN: Soft and nontender. EXTREMITIES: No edema. CARDIAC MEDICATIONS: Amiodarone 200 mg p.o. b.i.d. and vasopressin drip. LABORATORY DATA: WBC 30.8, hemoglobin 13.8, hematocrit 41.1, and platelets 620. Sodium 128, potassium 3.9, chloride 94, CO2 19, BUN 45, and creatinine 6.07. IMPRESSION: 1. Atrial fibrillation. 2. Chest pain. 3. Hypotension. 4. Leukocytosis. 5. Fmpub-ol-cropkwh diastolic heart failure. 6. Rqqmi-dt-tzrvxnx kidney disease, now initiated on hemodialysis. 7. Coronary artery disease. 8. Hypertension. 9. Hyperlipidemia. 10. Morbid obesity. RECOMMENDATIONS: Continue supportive care. Monitor the patient closely on telemetry. Heart rate is now controlled. Continue to hold AV yun blocking agents given pressor requirement. Continue amiodarone. Continue current cardiac medications. Currently holding antiplatelets and anticoagulation given possible surgery. If no surgery is planned, would recommend resuming antiplatelet therapy and anticoagulation. Volume management per Nephrology given initiation on hemodialysis. Antibiotics per Infectious Disease, as the patient suspected to be septic secondary to UTI. Also, being evaluated for C. difficile per Infectious Disease. Thank you for this consult. We will continue to follow. Nisa Hicks MD [facility]/MODL /[id number]
--- NOTE | 2019-05-26 18:11 | NUR ---
PT REFUSING MEDICATION AT THIS TIME ATTEMPTED AT TWO DIFFERENT TIME PATIENTS STATES " NO MORE, NO MORE MEDICATIONS I DONT WANT ANYTHING ANYMORE" THIS RN ASKED WHAT SHE MEANT BY THAT PT STATES " IM JUST READY TO GO BE WITH THE [facility]" PAGED TO NOTIFY
--- NOTE | 2019-05-26 18:45 | NUR ---
Report received. Assumed care. Assessment done. See interventions. O2 per NC @ 4L. IV Vasopressin @ 0.03 units/hr or 1.8ml/hr.
--- NOTE | 2019-05-26 18:57 | Diagnostic Imaging Report ---
EXAMINATION: CHEST SINGLE (PORTABLE) INDICATION: SOB COMPARISON: 05/23/2019 FINDINGS: AP view TUBES and LINES: Left internal jugular tunneled hemodialysis catheter and right IJ chest port are appropriately positioned. . LUNGS: Lungs are well inflated. There is mild prominence of the central pulmonary vasculature, consistent with pulmonary venous congestion, unchanged. There is linear left basilar atelectasis. PLEURA: No pleural effusion or pneumothorax. HEART AND MEDIASTINUM: Cardiac size is moderately enlarged, unchanged. BONES AND SOFT TISSUES: No acute osseous lesion. Soft tissues are unremarkable. UPPER ABDOMEN: No free air under the diaphragm. IMPRESSION: No significant interval change. Signed by: Gorge Ray MD on 05/26/2019 6:55 PM
[2019-05-26] MEDS: TRAZODONE HCL 50 MG TAB PO SCH (20:55)
--- NOTE | 2019-05-26 20:56 | NUR ---
Refusing po meds. Offered bath. Refused at this time.
--- NOTE | 2019-05-26 22:58 | NUR ---
Medicated for c/o nausea and pain with Zofran & Dilaudid for pain level 8/10.
--- NOTE | 2019-05-26 23:44 | Progress Note ---
DATE: REASON FOR EVALUATION: End-stage renal failure, need for permanent dialysis access; requested by Dr. Maria Del Carmen Arenas. SUBJECTIVE: Developed hypotension and has been moved to the ICU. Currently stable hemodynamics on vasopressin 0.3. She is on hemodialysis and tolerating it at present. PHYSICAL EXAMINATION: CARDIAC: Regular rate and rhythm. Normal S1 and S2. LUNGS: Clear to auscultation and percussion bilaterally. EXTREMITIES: 1+ edema to the knees bilaterally. Unchanged. There is a good bruit in the left upper extremity fistula. SKIN: Ecchymoses on the arms, which are stable. NEUROLOGIC: Cranial nerves II through XII intact. Alert and oriented today. LABORATORY DATA: WBC normal. Sodium 128, potassium 3.9, BUN 45, creatinine 6.07. REVIEW OF SYSTEMS: CHEST PAIN: Negative. SHORTNESS OF BREATH: Negative. ABDOMINAL PAIN: Negative. BACK PAIN: Negative. NEUROLOGIC: No new problems. No focal deficits. IMPRESSION: Off anticoagulation. Hypotension being treated. The patient is in ICU. AV fistula revision canceled. We will follow. MD HERNAN OrtegaL/MODL /[id number]
[2019-05-27] VITALS (25 sets, daily range): BP systolic 81–153; BP diastolic 61–102
[2019-05-27] MEDS: NYSTATIN SUSPENSION 5 ML UDC PO SCH ×4 (00:20→17:52)
[2019-05-27] MEDS: VANCOMYCIN 250MG/5ML ORAL SOLN PO SCH ×4 (00:20→17:52)
[2019-05-27] MEDS: IPRATROPIUM BROMIDE 0.02% 2.5 ML NEB NEB SCH ×6 (00:25→19:40)
--- NOTE | 2019-05-27 05:00 | NUR ---
Dr. Torres here. Spoke extensively to .
[2019-05-27 05:21] LABS: BASOPHILS # (AUTO) 0.1 (0.0-0.1); BASOPHILS % 0.3 % (0.0-1.0); EOSINOPHILS % 0.1 % (0.0-6.0); HEMATOCRIT 41.3 % (34.2-44.1); HEMOGLOBIN 13.5 g/dL (12.0-16.0); LYMPHOCYTES # (AUTO) 1.6 (1.0-3.2); LYMPHOCYTES % 6.5 % (18.0-39.1); MEAN CORPUSCULAR HEMOGLOBIN 28.6 pg (28-32); MEAN CORPUSCULAR HGB CONC 32.7 g/dL (31-35); MEAN CORPUSCULAR VOLUME 87.5 fL (81-99); MONOCYTES # (AUTO) 1.7 (0.2-0.8); MONOCYTES % 6.8 % (4.4-11.3); PLATELET COUNT 545 x10e3/uL (140-360); RED BLOOD COUNT 4.72 x10e6/uL (3.6-5.1); RED CELL DISTRIBUTION WIDTH 15.1 % (11.7-14.4)
--- NOTE | 2019-05-27 05:30 | NUR ---
Vasopressin weaned off.
[2019-05-27 05:53] LABS: ANION GAP 16.6 mmol/L (8-16); CALCIUM 9.2 mg/dL (8.4-10.2); CREATININE, SERUM 4.83 mg/dL (0.57-1.11); MAGNESIUM 2.1 MG/DL (1.3-2.1); POTASSIUM 3.6 mmol/L (3.5-5.1)
[2019-05-27] MEDS: FUROSEMIDE INJ 10 MG/ML 4 ML VIAL IV SCH ×2 (06:00→14:00)
[2019-05-27] MEDS: METRONIDAZOLE 500MG/NS 100ML 100 ML IV SCH ×3 (06:00→22:00)
[2019-05-27 06:10] LABS: PHOSPHORUS 4.3 MG/DL (2.3-4.7)
[2019-05-27] MEDS: ONDANSETRON HCL INJ 2MG/ML 2ML 2 MG/ML VIAL IV PRN ×2 (07:49→16:46)
[2019-05-27] MEDS: HYDROMORPHONE 1MG/1ML INJ IV PRN ×2 (07:49→16:47)
--- NOTE | 2019-05-27 08:16 | NUR ---
notified ID of [id number] + Addendum: 05/27/19 at 1436 by Shira Joyce RN ORGANISM COLONIZED PER DR ALCARAZ. NO TREATMENT NEEDED. NO CHANGES TO ANTIBIOTICS AT THIS TIME
[2019-05-27] MEDS: DULOXETINE HCL 30 MG DELAYED RELEASE PO SCH (08:50)
[2019-05-27] MEDS: AMIODARONE HCL 200 MG TAB PO SCH ×2 (08:50→17:52)
[2019-05-27] MEDS: DICYCLOMINE HCL 10 MG CAP PO SCH (08:50)
[2019-05-27] MEDS: LIOTHYRONINE SODIUM 5 MCG TAB PO SCH (08:51)
[2019-05-27] MEDS: PANTOPRAZOLE SOD 40 MG TABEC PO SCH (08:51)
[2019-05-27] MEDS: OXYBUTYNIN CHLORIDE 5 MG TAB PO SCH (08:51)
[2019-05-27] MEDS: LINACLOTIDE 145 MCG CAPSULE PO SCH ×2 (08:51→14:58)
[2019-05-27] MEDS: METOPROLOL SUCCINATE 50 MG TAB XL PO SCH (09:00)
[2019-05-27] MEDS: ISOSORBIDE MONONITRATE 30 MG TAB CR PO SCH (09:00)
[2019-05-27] MEDS: NOREPINEPHRINE 8 MG/D5W 250 ML 250 ML IV SCH (10:24)
--- NOTE | 2019-05-27 13:21 | NUR ---
RECEIVED CALL FROM LUCIAN AMARAL STATING PT HAD LTAC EVAL ORDERED 05/26/2019 @ 6044. MET W THE PT'S SPOUSE THIS AM TO DISCUSS LTAC OPTIONS. THE STATES HE WILL SPEAK W DR. ACOSTA LATER, BECAUSE HE WAS NOT TOLD ABOURT THIS BY DR. ACOSTA. INFORMED THE DR. ACOSTA WOULD HAVE TO OK TRANSFER BECAUSE HE WAS THE ATTENDING. VERBALIZED UNDERSTANDING. CHOICE WAS PROVIDED FOR [facility] AND [facility]. CHOSE [facility]. CHOICE LETTER WAS SIGNED AND COPY TO THE CHART. CALL TO JENNIFER TO INFORM OF EVAL. STATES SHE WOULD COME TO SPEAK THE PT AND HER MOT STARTED, BUT NOT SIGNED.
--- NOTE | 2019-05-27 14:53 | Progress Note ---
DATE: 05/27/2019 Cardiology Progress Note SUBJECTIVE: The patient denies chest pain or shortness of breath. She is now off vasopressin. reports patient remains confused. OBJECTIVE: VITAL SIGNS: Temperature 98.7 degrees, pulse 82, respiratory rate 16, blood pressure 118/94, and oxygen saturation 100% on 4 L nasal cannula. GENERAL: Awake, no acute distress, chronically ill-appearing, morbidly obese, somewhat confused. LUNGS: Decreased breath sounds at the bases, otherwise clear to auscultation. No wheezes or crackles. CARDIOVASCULAR: Irregularly irregular. Normal rate. Normal S1 and S2. No murmur. ABDOMEN: Soft and nontender. EXTREMITIES: No edema. CARDIAC MEDICATIONS: Liothyronine 25 mcg p.o. daily, amiodarone 200 mg p.o. b.i.d., and furosemide 80 mg IV q.8 hours. LABORATORY DATA: WBC 24.65, hemoglobin 13.5, hematocrit 41.3, and platelets 545. Sodium 135, potassium 3.6, chloride 98, CO2 24, BUN 27, and creatinine 4.83. Telemetry was personally reviewed and interpreted, revealing atrial fibrillation. IMPRESSION: 1. Atrial fibrillation. 2. Chest pain. 3. Sepsis. 4. Acute on chronic diastolic heart failure. 5. Acute on chronic kidney disease, now initiated on hemodialysis. 6. Coronary artery disease. 7. Hypertension. 8. Hyperlipidemia. 9. Morbid obesity. RECOMMENDATIONS: The patient has been weaned off pressors. Heart rate is controlled. Continue to hold metoprolol and isosorbide for now, possibly resume metoprolol tomorrow if blood pressure remains stable. Monitor patient closely on telemetry. Continue amiodarone. Recommend resuming antiplatelet therapy and anticoagulation if no procedures are planned. She has not had any evidence of myocardial infarction on serial cardiac biomarkers. Volume management per Nephrology given initiation on hemodialysis. Antibiotics per Infectious Disease. Thank you for this consult. We will continue to follow. Nisa Hicks MD ABS/MODL /[id number]
--- NOTE | 2019-05-27 16:58 | NUR ---
RECEIVED A CALL FROM JENNIFER BAKER. PT WAS APPROVED FOR [facility]. STATES SHE SPOKE W DR. ACOSTA AND HE WAS NOT READY FOR THE PT TO TRANSFER AT THIS TIME. STATES MAYBE THURSDAY.
[2019-05-27] MEDS ORDERED: DULOXETINE HCL 30 MG DELAYED RELEASE PO SCH (17:00)
--- NOTE | 2019-05-27 17:15 | Progress Note ---
DATE: SUBJECTIVE: The patient was weaned off vasopressin. She is not having fevers. She has no diarrhea. She still complains of some malaise and fatigue. PHYSICAL EXAMINATION: VITAL SIGNS: Blood pressure is 97/73 and saturation is 100% on 4 L. The heart rate is 85. HEENT: Shows no facial swelling or erythema. CARDIAC: Reveals regular rate and rhythm with normal S1, S2. LUNGS: Auscultation of lungs reveals clear breath sounds bilaterally. There is no wheezing. ABDOMEN: Soft, nontender. There is no rebound or guarding. EXTREMITIES: Show no leg edema or calf tenderness. There is no cyanosis, clubbing. SKIN: Shows no rashes. NEUROLOGICAL: Shows no focal abnormalities. LABORATORY DATA: White blood cell count is 24.6 and hemoglobin is 13.5. The platelet count is 545. The BUN to creatinine ratio is 27 to 4.83 and the sodium is 135. PT is 19.8. IMPRESSION: 1. Acute on chronic diastolic heart failure. 2. Acute on chronic kidney disease. 3. Urinary tract infection with Escherichia coli and secondary sepsis. 4. Metabolic encephalopathy. 5. Atrial fibrillation. PLAN: 1. Continue current antibiotics. 2. Dialysis as needed. 3. Ativan as tolerated. MD ANDRA Haque/ZOE /[id number]
[2019-05-27] MEDS: TRAZODONE HCL 50 MG TAB PO SCH (21:00)
[2019-05-27] MEDS: BALSAM PERU/CASTOR OIL 60 GM OINT...G. TP SCH (22:00)
[2019-05-28] VITALS (25 sets, daily range): BP systolic 96–161; BP diastolic 59–97
[2019-05-28] MEDS: HYDROMORPHONE 1MG/1ML INJ IV PRN ×2 (01:13→18:51)
[2019-05-28] MEDS: IPRATROPIUM BROMIDE 0.02% 2.5 ML NEB NEB SCH ×6 (04:15→22:50)
[2019-05-28 05:50] LABS: ALBUMIN 2.6 g/dL (3.5-5.0); ALBUMIN/GLOBULIN RATIO 0.7 (0.8-2.0); ANION GAP 14.4 mmol/L (8-16); CALCIUM 9.1 mg/dL (8.4-10.2); CREATININE, SERUM 6.06 mg/dL (0.57-1.11); POTASSIUM 3.4 mmol/L (3.5-5.1)
[2019-05-28] MEDS: METRONIDAZOLE 500MG/NS 100ML 100 ML IV SCH ×3 (05:57→23:30)
[2019-05-28] MEDS: NYSTATIN SUSPENSION 5 ML UDC PO SCH ×4 (06:00→18:00)
[2019-05-28] MEDS: VANCOMYCIN 250MG/5ML ORAL SOLN PO SCH ×5 (06:00→23:30)
[2019-05-28 06:31] LABS: BASOPHILS # (AUTO) 0.1 (0.0-0.1); BASOPHILS % 0.4 % (0.0-1.0); EOSINOPHILS # (AUTO) 0.1 (0.0-0.4); EOSINOPHILS % 0.6 % (0.0-6.0); HEMATOCRIT 39.7 % (34.2-44.1); HEMOGLOBIN 13.4 g/dL (12.0-16.0); LYMPHOCYTES % 9.1 % (18.0-39.1); MEAN CORPUSCULAR HEMOGLOBIN 28.9 pg (28-32); MEAN CORPUSCULAR HGB CONC 33.8 g/dL (31-35); MEAN CORPUSCULAR VOLUME 85.7 fL (81-99); MONOCYTES % 9.1 % (4.4-11.3); NEUTROPHILS # (AUTO) 17.8 (2.1-6.9); NEUTROPHILS % 79.3 % (38.7-80.0); PLATELET COUNT 536 x10e3/uL (140-360); RED BLOOD COUNT 4.63 x10e6/uL (3.6-5.1); RED CELL DISTRIBUTION WIDTH 15.5 % (11.7-14.4)
[2019-05-28] MEDS: AMIODARONE HCL 200 MG TAB PO SCH ×2 (09:00→17:00)
[2019-05-28] MEDS: PANTOPRAZOLE SOD 40 MG TABEC PO SCH (09:00)
[2019-05-28] MEDS: LIOTHYRONINE SODIUM 5 MCG TAB PO SCH (09:00)
[2019-05-28] MEDS: DULOXETINE HCL 30 MG DELAYED RELEASE PO SCH (09:00)
[2019-05-28] MEDS: NOREPINEPHRINE 8 MG/D5W 250 ML 250 ML IV SCH (10:45)
[2019-05-28] MEDS: BALSAM PERU/CASTOR OIL 60 GM OINT...G. TP SCH ×2 (11:27→20:00)
--- NOTE | 2019-05-28 12:58 | NUR ---
[facility] [id number]
--- NOTE | 2019-05-28 13:32 | Progress Note ---
DATE: SUBJECTIVE: The patient is less animated. She is not having fevers. She is awaiting dialysis today. PHYSICAL EXAMINATION: VITAL SIGNS: The blood pressure is 104/75 and the saturation is 96% on 3 L. HEENT: Shows no facial swelling or erythema. CARDIAC: Reveals regular rate and rhythm with normal S1 and S2. LUNGS: Auscultation of lungs shows decreased breath sounds at the bases. There is no wheezing. ABDOMEN: Soft, nontender. There is no rebound or guarding. EXTREMITIES: Show no leg edema or calf tenderness. LABORATORY DATA: BUN to creatinine ratio is normal. The other electrolytes within normal limits. White blood cell count of 22.4 and the hemoglobin is 13.4. The platelet count is 536. IMPRESSION: 1. Acute on chronic diastolic heart failure. 2. Acute on chronic renal failure. 3. Urinary tract infection with Escherichia coli and secondary sepsis. 4. Metabolic encephalopathy. 5. Atrial fibrillation. PLAN: 1. Dialysis today. 2. Continue current antibiotics. 3. Physical therapy as tolerated. 4. Repeat lab tests and chest x-ray in the morning. Humberto Archer MD [facility]/MODL /[id number]
[2019-05-28] MEDS ORDERED: ALTEPLASE RECOMBINANT 2 MG/2 ML VIAL ONE ×2 (14:08→14:10)
[2019-05-28] MEDS ORDERED: ALTEPLASE RECOMBINANT 2 MG/2 ML VIAL IV PRN (15:30)
--- NOTE | 2019-05-28 16:48 | Progress Note ---
DATE: SUBJECTIVE: Ms. Preciado is alert and oriented, but she is weak. Her at the bedside. Her review of systems, she is having just diffuse aches and pain. The patient, who does have underlying history of morbidly obese patient, kidney stone, history of CVA, congestive heart failure, COPD, who also have splenectomy, comes in with sepsis and septic shock. Her white count went up to 31,000. empirically for C. difficile and her white count is slowly coming down. Her C. difficile is negative and her diarrhea improved. Clinically, she looks better, so we will continue with treatment as ordered. Her creatinine is also 6.06 and she is on hemodialysis. Dr. Arora at the bedside. Discussed with her . The patient has no new complaints. PHYSICAL EXAMINATION: GENERAL: She is currently alert and oriented. VITAL SIGNS: Stable, afebrile. HEENT: She is not icteric. NECK: Supple. CHEST: Few crackles at the bases. HEART: S1, S2. ABDOMEN: Morbidly obese. EXTREMITIES: No edema. SKIN: No rash. IMPRESSION: 1. Sepsis, probably Clostridium difficile. We will continue with the same. 2. Bacteriuria. Observe the patient clinically. 3. Obesity, morbid. 4. End-stage renal disease, on hemodialysis currently. 5. [id number] congestive heart failure. 6. Metabolic encephalopathy. 7. Atrial fibrillation. 8. Prognosis remains very guarded. Discussed with at length. Discussed with the medical team. We will follow clinically. MD RUBEN Mauricio/ZOE /[id number]
[2019-05-28 16:49] LABS: INR 0.96; PROTHROMBIN TIME 13.4 seconds (11.9-14.5)
--- NOTE | 2019-05-28 18:23 | Diagnostic Imaging Report ---
Date and Time: 05/28/2019 Procedure: Right internal jugular temporary hemodialysis catheter placement carroting machine operator: Dr. Contreras Pre-operative diagnosis: End-stage renal disease Post-operative diagnosis: End-stage renal disease Conscious Sedation: None The patient's heart rate and pulse oximetry were continuously monitored by the ICU nurse. Blood pressure was monitored at 5 minute intervals. Additional Medications: Lidocaine 1% for local anesthesia Fluoroscopy time: 0.5 minutes Dose-area Product: 2.26 Gycm2. Frontal Air Kerma: 7.01 mGy Contrast used: None Estimated blood loss: Minimal Specimens: None Implants: 13 [place] 15 cm triple-lumen hi flow central venous catheter DISCUSSION: Informed consent was obtained and documented in the medical record after discussion of risks and benefits. The patient was placed in the supine position on the hospital bed. Preliminary sonographic evaluation confirmed patency of the right internal jugular vein, evidenced by compressibility. The right neck was prepped and draped in the standard sterile fashion. 1% lidocaine was infiltrated into the skin and subcutaneous tissues for local anesthesia. Then under continuous sonographic guidance, an 18-gauge singlewall needle was used to access the right internal jugular vein. A permanent sonographic image was stored in the medical record. A 0.0 3 5-in. wire was advanced centrally into the IVC under fluoroscopic guidance. The needle was removed over the wire and the tract was dilated. Then a 13 [place] 15 cmtriple-lumen central high flow venous catheter was advanced over the wire to full depth. The wire was removed, and the catheter tip was positioned at the superior cavoatrial junction. Each lumen showed adequate bidirectional flow and was flushed with sterile saline. The catheter was secured to the skin with monofilament nylon suture and a sterile dressing was applied. The patient tolerated the procedure well without immediate complication. FINDINGS: Patent right internal jugular vein IMPRESSION: Successful placement of a 13 [place], 15 cm triple-lumen hi flow central venous catheter by a right internal jugular approach under sonographic and fluoroscopic guidance. Signed by: Dr. Phoenix Contreras M.D. on 05/28/2019 6:20 PM
--- NOTE | 2019-05-28 18:23 | Diagnostic Imaging Report ---
Date and Time: 05/28/2019 Procedure: Right internal jugular temporary hemodialysis catheter placement dowel inserting machine operator: Dr. Contreras Pre-operative diagnosis: End-stage renal disease Post-operative diagnosis: End-stage renal disease Conscious Sedation: None The patient's heart rate and pulse oximetry were continuously monitored by the ICU nurse. Blood pressure was monitored at 5 minute intervals. Additional Medications: Lidocaine 1% for local anesthesia Fluoroscopy time: 0.5 minutes Dose-area Product: 2.26 Gycm2. Frontal Air Kerma: 7.01 mGy Contrast used: None Estimated blood loss: Minimal Specimens: None Implants: 13 [place] Citizen 15 cm triple-lumen hi flow central venous catheter DISCUSSION: Informed consent was obtained and documented in the medical record after discussion of risks and benefits. The patient was placed in the supine position on the hospital bed. Preliminary sonographic evaluation confirmed patency of the right internal jugular vein, evidenced by compressibility. The right neck was prepped and draped in the standard sterile fashion. 1% lidocaine was infiltrated into the skin and subcutaneous tissues for local anesthesia. Then under continuous sonographic guidance, an 18-gauge singlewall needle was used to access the right internal jugular vein. A permanent sonographic image was stored in the medical record. A 0.0 3 5-in. wire was advanced centrally into the IVC under fluoroscopic guidance. The needle was removed over the wire and the tract was dilated. Then a 13 [place] Citizen 15 cmtriple-lumen central high flow venous catheter was advanced over the wire to full depth. The wire was removed, and the catheter tip was positioned at the superior cavoatrial junction. Each lumen showed adequate bidirectional flow and was flushed with sterile saline. The catheter was secured to the skin with monofilament nylon suture and a sterile dressing was applied. The patient tolerated the procedure well without immediate complication. FINDINGS: Patent right internal jugular vein IMPRESSION: Successful placement of a 13 [place] Citizen, 15 cm triple-lumen hi flow central venous catheter by a right internal jugular approach under sonographic and fluoroscopic guidance. Signed by: Dr. Phoenix Contreras M.D. on 05/28/2019 6:20 PM
--- NOTE | 2019-05-28 18:25 | NUR ---
left tunnelled HD catheter clotted during attempted HD. Cathflo used to de clot it but unsuccessful. Spoke with Dr Arora and new orders to exchange catheter or new temporary HD catheter insertion. Transported patient to radiology on continuous monitoring. Right IJ Kevin catheter inserted under fluoroscopy successfully. Left tunneled catheter will need to be exchanged at later time. Patient tolerated procedure well. contacted [facility] for HD today.
[2019-05-28] MEDS: ONDANSETRON HCL INJ 2MG/ML 2ML 2 MG/ML VIAL IV PRN (18:51)
--- NOTE | 2019-05-28 23:00 | NUR ---
Patient dialyzed, stable, UF of 1500
[2019-05-28] MEDS: TRAZODONE HCL 50 MG TAB PO SCH (23:30)
[2019-05-29] VITALS (18 sets, daily range): BP systolic 80–130; BP diastolic 57–85
[2019-05-29] MEDS: IPRATROPIUM BROMIDE 0.02% 2.5 ML NEB NEB SCH ×5 (03:05→19:40)
--- NOTE | 2019-05-29 03:19 | Progress Note ---
DATE: SUBJECTIVE: The patient had no new events overnight. Unfortunately, the patient is not eating at all. OBJECTIVE: VITAL SIGNS: Temperature 98.7, pulse 94, blood pressure 89/57, and sats 97%. GENERAL: In no apparent distress, but sedative-like, feeling sleepy, lying in the bed. CARDIOVASCULAR: Regular rate and rhythm. LUNGS: Decreased breath sounds bilaterally. ABDOMEN: Good bowel sounds. Soft and nontender. EXTREMITIES: No clubbing, no cyanosis. NEUROLOGIC: Moves all extremities x4. ASSESSMENT AND PLAN: 1. Sepsis. Continue with her antibiotics. 2. Leukocytosis. Continue to monitor. 3. End-stage renal disease. Continue with dialysis per Renal. 4. Hypertension. Continue with current care. 5. Hypothyroidism. Continue with her medicines. 6. Weakness. Continue with physical therapy. 7. Anorexia. I had a long talk with the that the patient did not show any signs of improving with her p.o. intake, especially with protein that she very well may need a feeding tube due to her failure to thrive. Please see hospital chart for full details. MD RITA Michael/ZOE /[id number]
--- NOTE | 2019-05-29 05:00 | NUR ---
Refused to be given a bath
[2019-05-29] MEDS: NYSTATIN SUSPENSION 5 ML UDC PO SCH ×4 (06:00→16:56)
[2019-05-29] MEDS: ONDANSETRON HCL INJ 2MG/ML 2ML 2 MG/ML VIAL IV PRN ×3 (06:00→16:30)
[2019-05-29] MEDS: HYDROMORPHONE 1MG/1ML INJ IV PRN ×5 (06:00→22:00)
[2019-05-29 06:05] LABS: BASOPHILS # (AUTO) 0.1 (0.0-0.1); BASOPHILS % 0.3 % (0.0-1.0); EOSINOPHILS # (AUTO) 0.3 (0.0-0.4); EOSINOPHILS % 1.6 % (0.0-6.0); HEMATOCRIT 40.8 % (34.2-44.1); HEMOGLOBIN 13.6 g/dL (12.0-16.0); LYMPHOCYTES # (AUTO) 2.2 (1.0-3.2); LYMPHOCYTES % 10.1 % (18.0-39.1); MEAN CORPUSCULAR HEMOGLOBIN 29.1 pg (28-32); MEAN CORPUSCULAR HGB CONC 33.3 g/dL (31-35); MEAN CORPUSCULAR VOLUME 87.2 fL (81-99); MONOCYTES % 9.5 % (4.4-11.3); NEUTROPHILS # (AUTO) 16.6 (2.1-6.9); NEUTROPHILS % 77.6 % (38.7-80.0); PLATELET COUNT 449 x10e3/uL (140-360); RED BLOOD COUNT 4.68 x10e6/uL (3.6-5.1); RED CELL DISTRIBUTION WIDTH 16.2 % (11.7-14.4)
[2019-05-29] MEDS: METRONIDAZOLE 500MG/NS 100ML 100 ML IV SCH ×3 (06:18→21:07)
[2019-05-29] MEDS: VANCOMYCIN 250MG/5ML ORAL SOLN PO SCH ×3 (06:18→17:05)
[2019-05-29 06:35] LABS: ALBUMIN 2.6 g/dL (3.5-5.0); ALBUMIN/GLOBULIN RATIO 0.7 (0.8-2.0); ANION GAP 15.7 mmol/L (8-16); CALCIUM 8.6 mg/dL (8.4-10.2); CREATININE, SERUM 3.8 mg/dL (0.57-1.11); POTASSIUM 3.7 mmol/L (3.5-5.1)
--- NOTE | 2019-05-29 07:59 | NUR ---
PATIENT REFUSING TO TAKE PO MEDICATIONS AND REFUSING TO EAT DOCUMENTED
[2019-05-29] MEDS: LIOTHYRONINE SODIUM 5 MCG TAB PO SCH (08:16)
[2019-05-29] MEDS: AMIODARONE HCL 200 MG TAB PO SCH ×2 (08:16→17:50)
[2019-05-29] MEDS: DULOXETINE HCL 30 MG DELAYED RELEASE PO SCH ×2 (08:16→17:50)
[2019-05-29] MEDS: NOREPINEPHRINE 8 MG/D5W 250 ML 250 ML IV SCH (08:17)
[2019-05-29] MEDS: BALSAM PERU/CASTOR OIL 60 GM OINT...G. TP SCH ×2 (08:17→21:07)
[2019-05-29] MEDS: PANTOPRAZOLE SOD 40 MG TABEC PO SCH (08:17)
[2019-05-29] MEDS: ONDANSETRON HCL 4 MG ORAL DISINTEGRATING TAB PO PRN (09:20)
--- NOTE | 2019-05-29 10:18 | Diagnostic Imaging Report ---
EXAMINATION: CHEST SINGLE (PORTABLE) INDICATION: CHF. COMPARISON: Chest radiograph 05/26/2019. FINDINGS: TUBES and LINES: Left IJ tunneled hemodialysis catheter with tip in the SVC. Right-sided chest port with catheter tip in the SVC. Interval placement of right IJ non tunneled hemodialysis catheter which terminates near the cavoatrial junction. LUNGS: Lungs are moderately inflated. Central vascular congestion with mild interstitial opacities. PLEURA: No pleural effusion or pneumothorax. HEART AND MEDIASTINUM: The cardiomediastinal silhouette is moderately enlarged. BONES AND SOFT TISSUES: No acute osseous lesion. Soft tissues are unremarkable. UPPER ABDOMEN: No free air under the diaphragm. IMPRESSION: Cardiomegaly with mild pulmonary interstitial edema. Lines and tubes as above. Interval placement of right IJ non tunneled hemodialysis catheter which terminates near the cavoatrial junction. No evidence of pneumothorax. Signed by: Dr. Carlie Weiss MD on 05/29/2019 10:16 AM
[2019-05-29 11:20] LABS: EOSINOPHILS % (MANUAL) 1 % (0-7); LYMPHOCYTES % (MANUAL) 9 % (19-48); MONOCYTES % (MANUAL) 8 % (3.4-9.0); NEUTROPHILS % (MANUAL) 82 % (40-74)
--- NOTE | 2019-05-29 11:25 | Progress Note ---
DATE: SUBJECTIVE: The patient had a dialysis catheter replaced. She had dialysis late last night. She is still depressed and not taking any home medications. PHYSICAL EXAMINATION: VITAL SIGNS: The blood pressure is 117/84 and saturation is 97% on 3 liters. HEENT: Shows no facial swelling or erythema. CARDIAC: Reveals regular rate and rhythm with normal S1 and S2. RESPIRATORY: Auscultation of lungs reveal clear breath sounds bilaterally. There is no wheezing. ABDOMEN: Soft and nontender. There is no rebound or guarding. EXTREMITIES: Show no leg edema or calf tenderness. There is no cyanosis or clubbing. SKIN: Shows no rashes. NEUROLOGICAL: Shows no focal abnormalities. IMPRESSION: 1. Leukocytosis of unclear etiology. 2. Acute on chronic renal failure. 3. Acute on chronic systolic heart failure. 4. Metabolic encephalopathy. 5. Atrial fibrillation. PLAN: 1. Continue dialysis as needed. 2. Continue current antibiotics and await culture results. 3. Continue to monitor blood counts and labs. 4. Out of bed as tolerated. 5. Long-term prognosis is poor. Humberto Archer MD [facility]/MODL /[id number]
--- NOTE | 2019-05-29 13:41 | Progress Note ---
DATE: 05/28/2019 Cardiology Progress Note SUBJECTIVE: No major events overnight. The patient is refusing to take medicine or eat her food. Off pressors today. Denies chest pain or shortness of breath. OBJECTIVE: VITAL SIGNS: Temperature afebrile, pulse 81, respiratory rate 20, blood pressure 110/63 saturating 96% on BiPAP. GENERAL: Middle-aged female, ill appearing, no acute distress. CARDIOVASCULAR: Regular rate and rhythm. No murmurs, rubs, or gallops. LUNGS: Coarse breath sounds bilaterally. ABDOMEN: Soft, nontender, nondistended. NEURO AND PSYCH: Alert and oriented to person, place and time. Normal affect. INPATIENT MEDICATIONS: Reviewed. LABORATORY DATA: Reviewed. White count 21, improving from 24. Sodium 137. Troponin negative. IMAGING DATA: Reviewed. TELEMETRY DATA: Reviewed. Shows normal sinus rhythm. ASSESSMENT: 1. Atrial fibrillation. 2. Chest pain. 3. Sepsis. 4. Acute on chronic diastolic heart failure. 5. Acute on chronic kidney disease, now initiated on dialysis. 6. History of coronary artery disease. 7. Hypertension. 8. Hyperlipidemia. 9. Obesity. RECOMMENDATIONS: She is off pressors. Heart rate controlled in fact in normal rhythm. We will adjust blood pressure medicines as needed. Continue amiodarone. Resume apixaban and Plavix once procedures are completed. Thank you for this consult. We will continue to follow. MD BRODERICK GonsalesP/MODL /[id number]
--- NOTE | 2019-05-29 14:47 | Progress Note ---
DATE: 05/29/2019 Cardiology Progress Note SUBJECTIVE: No major events overnight. The patient is refusing to eat or take any medication. OBJECTIVE: VITAL SIGNS: Temperature afebrile, pulse 90, respiratory rate 18, blood pressure 114/70, saturating 97% on 3 L nasal cannula. GENERAL: Middle-aged female, ill appearing, no acute distress. CARDIOVASCULAR: Regular rate and rhythm. No murmurs, rubs, or gallops. LUNGS: Coarse breath sounds bilaterally. ABDOMEN: Obese, soft, nontender, nondistended. NEURO AND PSYCH: Appears lethargic. INPATIENT MEDICATIONS: Reviewed. TELEMETRY: Data reviewed. Normal sinus rhythm, rate controlled. LABORATORY DATA: Reviewed. White count continues to improve. Sodium is now normalized with initiation of hemodialysis. IMAGING DATA: Reviewed. Pulmonary edema seems to be improving. ASSESSMENT: 1. Atrial fibrillation. 2. End-stage renal disease. 3. Acute on chronic diastolic heart failure. 4. History of coronary artery disease. 5. Sepsis. 6. Hypertension. 7. Hyperlipidemia. 8. Morbid obesity. RECOMMENDATIONS: 1. Continue current regimen of cardiovascular medications including amiodarone to maintain sinus rhythm. Remains stable from a cardiovascular standpoint. Resume apixaban and Plavix. However, patient currently refusing to take any oral medication or food. 2. Volume management per Nephrology. Thank you for this consult. We will continue to follow. MD ISAEL Gonsales/MITCHL /[id number]
--- NOTE | 2019-05-29 17:30 | NUR ---
PATIENTS REQUESTED AMIODARONE AND CYMBALTA TO BE CRUSHED. GAVE MEDS WITH KARSON CANALES
--- NOTE | 2019-05-29 19:00 | NUR ---
Received patient from day nurse, patient is stable, no complains. Safety and fall precautions maintained at this time.
[2019-05-29] MEDS: TRAZODONE HCL 50 MG TAB PO SCH (21:07)
[2019-05-29] MEDS ORDERED: SODIUM CHLORIDE 0.9% 250ML 250 ML ONE (21:18)
--- NOTE | 2019-05-29 21:27 | Progress Note ---
DATE: 05/29/2019 REASON FOR EVALUATION: End-stage renal failure, need for permanent dialysis access revision; requested by Dr. Yehuda Arenas. SUBJECTIVE: Feeling better in the ICU. Off all inotropic support. Still in atrial fibrillation. Off apixaban. Tolerating hemodialysis. PHYSICAL EXAMINATION: CARDIAC: Regular rate and rhythm. Normal S1 and S2. LUNGS: Clear to auscultation and percussion bilaterally. EXTREMITIES: Trace edema to the knees bilaterally. There is a good bruit in the left upper extremity fistula, which is well healed. SKIN: Ecchymoses resolving on both arms. NEUROLOGIC: Cranial nerves II through XII intact. Alert and oriented today. Appropriately responsive. LABORATORIES: White count 21.3, hemoglobin 13.6, hematocrit 40.8, and platelet count 449,000. INR is 0.96 with PT 13.4. Sodium 140, creatinine 3.8, and BUN 15. LFTs are elevated with total bilirubin 1.5, AST 117, alkaline phosphatase 813, and ALT is normal at 35. REVIEW OF SYSTEMS: CHEST PAIN: Negative. SHORTNESS OF BREATH: Negative. ABDOMINAL PAIN: Negative. BACK PAIN: Negative. NEUROLOGIC: Stable without new problems. IMPRESSION: Dr. Wyatt felt that possible etiology of the sepsis is Clostridium difficile. The patient receiving antibiotics and currently stable. We will proceed with fistula revision tomorrow if other physicians agree. MD HERNAN OrtegaL/MODL /[id number]
[2019-05-30] VITALS: BP 106/78
[2019-05-30] MEDS: IPRATROPIUM BROMIDE 0.02% 2.5 ML NEB NEB SCH ×7 (00:10→23:10)
[2019-05-30] MEDS: NYSTATIN SUSPENSION 5 ML UDC PO SCH (00:21)
[2019-05-30] MEDS: VANCOMYCIN 250MG/5ML ORAL SOLN PO SCH ×5 (00:21→23:53)
[2019-05-30 04:00] VITALS: BP 126/78
[2019-05-30] MEDS: METRONIDAZOLE 500MG/NS 100ML 100 ML IV SCH ×3 (05:28→21:45)
[2019-05-30 05:47] LABS: BASOPHILS # (AUTO) 0.1 (0.0-0.1); BASOPHILS % 0.6 % (0.0-1.0); EOSINOPHILS # (AUTO) 0.4 (0.0-0.4); EOSINOPHILS % 2.1 % (0.0-6.0); HEMATOCRIT 40.5 % (34.2-44.1); HEMOGLOBIN 13.4 g/dL (12.0-16.0); LYMPHOCYTES # (AUTO) 2.8 (1.0-3.2); LYMPHOCYTES % 14.2 % (18.0-39.1); MEAN CORPUSCULAR HEMOGLOBIN 29.3 pg (28-32); MEAN CORPUSCULAR HGB CONC 33.1 g/dL (31-35); MEAN CORPUSCULAR VOLUME 88.4 fL (81-99); MONOCYTES # (AUTO) 1.9 (0.2-0.8); MONOCYTES % 9.6 % (4.4-11.3); NEUTROPHILS % 72.5 % (38.7-80.0); PLATELET COUNT 423 x10e3/uL (140-360); RED BLOOD COUNT 4.58 x10e6/uL (3.6-5.1); RED CELL DISTRIBUTION WIDTH 16.5 % (11.7-14.4)
[2019-05-30 06:03] LABS: INR 0.9; PROTHROMBIN TIME 12.7 seconds (11.9-14.5)
[2019-05-30 06:12] LABS: ALBUMIN 2.5 g/dL (3.5-5.0); ALBUMIN/GLOBULIN RATIO 0.6 (0.8-2.0); ANION GAP 13.5 mmol/L (8-16); CALCIUM 9.3 mg/dL (8.4-10.2); CREATININE, SERUM 5.8 mg/dL (0.57-1.11); PHOSPHORUS 3.2 MG/DL (2.3-4.7); POTASSIUM 3.5 mmol/L (3.5-5.1)
[2019-05-30 07:00] VITALS: BP 140/65
--- NOTE | 2019-05-30 07:00 | NUR ---
patient endorsed to next shift for continue of care.
[2019-05-30 07:43] VITALS: BP 109/90
[2019-05-30] MEDS: AMIODARONE HCL 200 MG TAB PO SCH ×2 (08:00→17:25)
[2019-05-30] MEDS: DULOXETINE HCL 30 MG DELAYED RELEASE PO SCH (08:00)
[2019-05-30] MEDS: PANTOPRAZOLE SOD 40 MG TABEC PO SCH (08:01)
[2019-05-30] MEDS: BALSAM PERU/CASTOR OIL 60 GM OINT...G. TP SCH ×2 (08:01→21:06)
[2019-05-30] MEDS: LIOTHYRONINE SODIUM 5 MCG TAB PO SCH (08:01)
[2019-05-30] MEDS: ONDANSETRON HCL INJ 2MG/ML 2ML 2 MG/ML VIAL IV PRN ×3 (09:01→20:29)
[2019-05-30] MEDS: HYDROMORPHONE 1MG/1ML INJ IV PRN ×3 (09:02→20:29)
[2019-05-30] MEDS ORDERED: HEPARIN SOD (PORCINE) 5,000 UNIT/ML VIAL ONE (11:58)
[2019-05-30] MEDS ORDERED: SODIUM CHLORIDE 0.9% 500ML 500 ML ONE (11:59)
[2019-05-30] MEDS ORDERED: BUPIVACAINE HCL 0.5% INJ 30 ML VIAL INJ ONE (11:59)
[2019-05-30] MEDS ORDERED: THROMBIN FOR SOLN 5,000 UNIT VIAL ONE (11:59)
[2019-05-30] MEDS ORDERED: HEPARIN SOD (PORCINE) 1000 UNIT/ML 30ML ONE (11:59)
[2019-05-30] MEDS ORDERED: FENTANYL CITRATE/PF 100MCG/2 ML INJ ONE (14:04)
[2019-05-30] MEDS ORDERED: MIDAZOLAM HCL 2 MG/2 ML VIAL ONE (14:04)
[2019-05-30] MEDS ORDERED: SODIUM CHLORIDE 0.9% 1000ML 2,000 ML ONE (15:44)
[2019-05-30 16:00] VITALS: BP 130/94
[2019-05-30] MEDS ORDERED: NEOSTIGMINE 1 MG/ML 10ML VIAL ONE (18:07)
[2019-05-30] MEDS ORDERED: ONDANSETRON HCL INJ 2MG/ML 2ML 2 MG/ML VIAL ONE (18:07)
[2019-05-30] MEDS ORDERED: ATROPINE SULFATE 1 MG/ML VIAL ONE (18:07)
[2019-05-30] MEDS ORDERED: PROPOFOL IV EMULSION 10 MG/ML 20 ML VIAL ONE (18:07)
[2019-05-30] MEDS ORDERED: SEVOFLURANE INHAL SOLN 250 ML PEN BTL ONE (18:07)
[2019-05-30] MEDS ORDERED: ROCURONIUM BROMIDE 10 MG/ML 5ML VIAL ONE (18:07)
[2019-05-30] MEDS ORDERED: LIDOCAINE HCL 2% LOCAL INJ 5 ML SDV VIAL INJ ONE (18:07)
[2019-05-30] MEDS ORDERED: HEPARIN SOD (PORCINE) 1000 UNIT/ML SDV IV PRN (18:15)
[2019-05-30] MEDS ORDERED: METOPROLOL TARTRATE 25 MG TAB PO SCH (18:45)
--- NOTE | 2019-05-30 18:45 | NUR ---
Report received. Assumed care. Assessment done. See interventions.
--- NOTE | 2019-05-30 19:03 | NUR ---
1630: Received patient from PACU with IV bag of NS hooked up to blue port on right IJ sanna. Dr. Arora at bedside and instructed me to not touch the catheter. Left upper arm AV fistula positive for thrill & bruit. Vital signs stable.
--- NOTE | 2019-05-30 20:27 | Progress Note ---
DATE: 05/30/2019 Cardiology Progress Note SUBJECTIVE: The patient denies chest pain or shortness of breath. OBJECTIVE: VITAL SIGNS: Temperature 98.4 degrees, pulse 100, respiratory rate 20, blood pressure 140/65, oxygen saturation 97% on 3 L nasal cannula. GENERAL: Morbidly obese woman, no acute distress, chronically ill-appearing, awake and alert. LUNGS: Clear to auscultation bilaterally. No wheezes or crackles. CARDIOVASCULAR: Normal rate, irregularly irregular. No murmur. Normal S1, S2. ABDOMEN: Soft, nontender. EXTREMITIES: No edema. NEURO: Nonfocal exam. CARDIAC MEDICATIONS: Amiodarone 200 mg p.o. b.i.d., liothyronine 25 mcg p.o. daily. LABORATORY DATA: WBC 19.36, hemoglobin 13.4, hematocrit 40.5, platelets 423. Sodium 137, potassium 3.5, chloride 101, CO2 of 26, BUN 26, and creatinine 5.8. TELEMETRY: Personally reviewed and interpreted revealing atrial fibrillation with borderline rate control. IMPRESSION: 1. Atrial fibrillation. 2. Chest pain. 3. Sepsis. 4. Acute on chronic diastolic heart failure. 5. Acute on chronic kidney disease, now initiate on hemodialysis. 6. Coronary artery disease. 7. Hypertension. 8. Hyperlipidemia. 9. Morbid obesity. RECOMMENDATIONS: The patient's blood pressure has improved. Her heart rate is borderline. We will resume metoprolol. Antibiotics per Infectious Disease. Continue current cardiac medications. The patient is to be taken to the OR today by Dr. Braswell. Resume anti-platelet therapy and anticoagulation once acceptable from a surgical standpoint. Volume management per Nephrology given she is on hemodialysis. Thank you for this consult. We will continue to follow. Nisa Hicks MD [facility]/MODL /[id number]
[2019-05-30 20:30] VITALS: BP 120/87
--- NOTE | 2019-05-30 20:52 | Operative Report ---
DATE OF PROCEDURE: 05/30/2019 SURGEON: Jovon Braswell MD PREOPERATIVE DIAGNOSES: End-stage renal failure, atrial fibrillation, heart failure, need for permanent dialysis access. POSTOPERATIVE DIAGNOSES: End-stage renal failure, atrial fibrillation, heart failure, need for permanent dialysis access. OPERATIVE PROCEDURE: Revision of left brachial artery to basilic vein AV fistula with translocation of fistula to subcutaneous location. GEOLOGICAL MANAGER: Nursing. ANESTHESIA: General endotracheal. INDICATIONS: This is a 63-year-old lady, who is obese and has been in the ICU recently for atrial fibrillation, heart failure, and renal insufficiency, who requires revision of her left brachial artery to basilic vein fistula. The fistula is functioning well and visualized on ultrasound without difficulty, but is too deep for easy access. Revision is required. Prior to surgery, I described the operation to the patient and her . I told them that the risks of surgery would include , bleeding, infection, heart attack, stroke, pneumonia, prolonged ICU stay, amputation, permanent hand/limb muscle or nerve damage, hand/limb amputation, hand/limb chronic pain, a 10% chance of the fistula might cease to function after surgery and require subsequent revision, replacement, or further surgery, etc. The patient and her family all stated that they understood, no further questions, and wanted to proceed. FINDINGS: Uneventful translocation of AV fistula to subcutaneous location. Excellent thrill and bruit at the conclusion of operation. Radial artery pulse had a strong Doppler signal both prior to and at completion of procedure. DESCRIPTION OF PROCEDURE: The patient was taken to the operative room on May 30, 2019, and placed supine upon the operating room table. General endotracheal anesthesia was smoothly induced. The left upper extremity was sterilely prepped and draped in the usual fashion using alcohol prewash and Betadine scrub and solution. The outflow basilic vein was harvested through two medially placed incisions. It was brought through a subcutaneous tunnel just on top of the triceps muscle. There was good hemostasis. The fistula had enlarged fairly well, but not as well as expected from the preoperative ultrasound. There was a good thrill. There was good hemostasis. The wound was closed in layers using absorbable suture. Sterile dressings were applied. Sponge, instrument, needle counts were correct prior to and after wound closure. Independent search of the operative field by both operating surgeons and nurse revealed no retained instruments or sponges. The patient tolerated the procedure well, was extubated in the operating room, and taken to the recovery area in stable condition. MD MARIUM Ortega/ZOE /[id number]
[2019-05-30] MEDS: TRAZODONE HCL 50 MG TAB PO SCH (21:01)
[2019-05-31] VITALS (7 sets, daily range): BP systolic 128–158; BP diastolic 73–96
[2019-05-31] MEDS: IPRATROPIUM BROMIDE 0.02% 2.5 ML NEB NEB SCH ×6 (02:55→23:00)
[2019-05-31] MEDS: HYDROMORPHONE 1MG/1ML INJ IV PRN ×6 (03:04→23:29)
[2019-05-31] MEDS: ONDANSETRON HCL INJ 2MG/ML 2ML 2 MG/ML VIAL IV PRN ×2 (03:04→07:54)
[2019-05-31] MEDS: VANCOMYCIN 250MG/5ML ORAL SOLN PO SCH ×3 (05:38→19:28)
[2019-05-31] MEDS: METRONIDAZOLE 500MG/NS 100ML 100 ML IV SCH ×3 (05:38→23:12)
[2019-05-31] MEDS ORDERED: CHOLESTYRAMINE 4 GM PACKET PO PRN (08:00)
[2019-05-31] MEDS: AMIODARONE HCL 200 MG TAB PO SCH ×2 (09:54→16:00)
[2019-05-31] MEDS: DULOXETINE HCL 30 MG DELAYED RELEASE PO SCH (09:54)
[2019-05-31] MEDS: BALSAM PERU/CASTOR OIL 60 GM OINT...G. TP SCH ×2 (09:54→21:16)
[2019-05-31] MEDS: PANTOPRAZOLE SOD 40 MG TABEC PO SCH (09:54)
[2019-05-31] MEDS: LIOTHYRONINE SODIUM 5 MCG TAB PO SCH (09:54)
--- NOTE | 2019-05-31 11:50 | Progress Note ---
DATE: 05/31/2019 Cardiology Progress Note SUBJECTIVE: The patient denies chest pain or shortness of breath. Her main complaint is pain at her recent AV fistula surgical site. She is also complaining of diarrhea. OBJECTIVE: VITAL SIGNS: Temperature 98.8 degrees, pulse 93, respiratory rate 18, blood pressure 140/81, and oxygen saturation 98% on 3 liters nasal cannula. GENERAL: Morbidly obese woman, awake and alert, in no acute distress. LUNGS: Clear to auscultation bilaterally. No wheezes or crackles. CARDIOVASCULAR: Normal rate. Irregularly irregular. No murmur. Normal S1 and S2. ABDOMEN: Soft and nontender. EXTREMITIES: No edema. NEUROLOGIC: Nonfocal exam. CARDIAC MEDICATIONS: 1. Metoprolol tartrate 25 mg p.o. b.i.d. 2. Amiodarone 200 mg p.o. b.i.d. 3. Liothyronine 25 mcg p.o. daily. LABORATORY DATA: None today. TELEMETRY: Personally reviewed and interpreted, revealing atrial fibrillation, rate controlled. IMPRESSION: 1. Atrial fibrillation. 2. Chest pain. 3. Sepsis. 4. Acute on chronic diastolic heart failure. 5. Acute on chronic kidney disease, now initiated on hemodialysis. 6. Coronary artery disease with prior stent. 7. Hypertension. 8. Hyperlipidemia. 9. Morbid obesity. RECOMMENDATIONS: The patient's blood pressure is acceptable. We will further titrate up metoprolol. Continue current cardiac medications otherwise. Resume anti-platelet therapy and anticoagulation once acceptable from a surgical standpoint. Volume management per Nephrology as she is now on hemodialysis. Antibiotics per Infectious Disease. Thank you for this consult. We will continue to follow. Nisa Hicks MD ABS/MODL /[id number]
[2019-05-31] MEDS ORDERED: SODIUM CHLORIDE 0.9% 250ML 250 ML ONE ×2 (12:24→15:11)
[2019-05-31] MEDS ORDERED: HEPARIN SOD (PORCINE) 1000 UNIT/ML SDV ONE ×2 (12:41→14:28)
[2019-05-31] MEDS ORDERED: MIDAZOLAM HCL 2 MG/2 ML VIAL ONE (12:41)
[2019-05-31] MEDS ORDERED: FENTANYL CITRATE/PF 100MCG/2 ML INJ ONE (12:42)
--- NOTE | 2019-05-31 15:02 | NUR ---
JUAN ALBERTO RODRIGUEZ FROM [facility]. STATES PT HAS AUTH, BUT IT WILL ON 06/02/2019. STATES DR. USMAN Osorio TRANSFER AFTER HD CATH INSERTED. CALL TO DR. ACOSTA REGARDING DC PLAN. INFORMED PT HAS AUTH. STATES THE PT IS NOT READY FOR TRANSFER AT THIS TIME.
--- NOTE | 2019-05-31 15:13 | Diagnostic Imaging Report ---
Tunneled dialysis catheter exchange. History: Renal failure, malfunctioning indwelling left IJ TTC. Modality: Sonography and fluoroscopy. Sedation: Versed 1.5 mg and fentanyl 75 mcg was given intravenously for conscious sedation. Vital signs were monitored throughout the procedure by a nurse, and remained stable. Physician intra-service time was 20. Dock Coordinator: MD Larry. Sociology Instructor: None. Approach: Via indwelling left IJ tunnel dialysis catheter. Estimated blood loss: < 5 cc. Specimen: None. Fluoroscopy Time: 0.9 min. Dose (Ka,r): 9.18 mGy. Technique: Informed written consent was obtained. Discussion of risks, benefits, and alternatives were made with the patient. The patient expressed understanding and agreed to proceed. All elements maximal sterile barrier technique was utilized for this procedure, including utilization of sterile scrub solution for skin prep, a large sterile sheet to cover the areas of the patient that were not prepped, and hand hygiene, mask, head covering, and sterile gown for performing radiologist and scrub technologist. Initial overseer kosher kitchen images demonstrate indwelling left IJ tunnel dialysis catheter tip terminating within the proximal SVC. 1% lidocaine was used for local anesthesia. A 0.035 Amplatz wire was advanced through the indwelling catheter into the IVC. The existing catheter was removed over wire. A new 14.5 Maltese 28 cm tip the cuff catheter was then advanced over wire with distal tip terminating within the superior right atrium. The lumens easily flushed/aspirated post exchange. The lumens were locked with heparin. The catheter was fixed to the skin with 2-0 Prolene. A reasonable pursestring suture was placed at the catheter exit site. A sterile dressing was applied. The patient tolerated the procedure without immediate complication. Impression: Successful left IJ tunnel dialysis catheter exchange/reposition with catheter tip now terminating within the superior right atrium. The lumens demonstrated brisk flow post exchange. Can remove temporary right IJ catheter after successful dialysis completed through the new tunneled catheter. Signed by: Dr. Art Juarez MD on 05/31/2019 3:10 PM
[2019-05-31] MEDS: FLUCONAZOLE 100 MG TAB PO SCH (15:52)
[2019-05-31] MEDS: METOPROLOL TARTRATE 50 MG TAB PO SCH (16:00)
[2019-05-31] MEDS: ONDANSETRON HCL 4 MG ORAL DISINTEGRATING TAB PO PRN (16:01)
--- NOTE | 2019-05-31 18:09 | NUR ---
Nutrition Intervention Note RD Recommendation for Physician: - Continue renal diet - Recommend Nepro nutrition supplement BID - Encourage PO intake Plan of Care: RD following, monitoring for tolerance and adequacy Nutrition reason for involvement: follow up Primary Diagnose(s): acute on chronic congestive heart failure, COPD exacerbation, CKD stage IV PMH: COPD, HTN, HLD, IBS, AFib, chronic constipation, low back pain, anxiety, sleep apnea I/O: 440/375 GI: soft, nontender abdomen, last recorded BM 05/27 Skin: stage 2 pressure ulcer sacrum Labs: (05/30) Creat 5.80, Glu 137 Meds: protonix, vancomycin, zofran, metroprolol, heparin, NaCl, Ht: 61in Wt: 221 lbs (05/28) 229.5 (05/19) 248.06lb (05/14) BMI: 41.8 kg/m2 IBW: 105lb RD Assessment: 05/30: Pt was not available at time of visit; therefore, spoke to RN who mentioned continues with poor PO intake. Pt has been trying to drink nutrition supplements per RN. Will continue to monitor. 05/23: Follow up. Pt s/p TDC placement today for HD, pt to receive HD on MWF per am MDR. Pt reports continued poor intake, MD ordered Ensure supplements- pt states that she has consumed 1.5 Ensure Enlive today. Noted 0-75% intake per chart. Pt reports altered taste changes and does not like the renal restrictions, explained the purpose of the diet restrictions. Pt slightly confused at time of visit, diet education not appropriate. Labs and meds reviewed. Chart reviewed. Will continue to monitor. (05/19) Follow up. Pt is receiving dialysis at this time due to acute on chronic renal failure. Pt reports eating <50% of her meals. Pt also declared she has been having diarrhea. Offered pt a nutrition supplement due to poor intake, but pt declined. Will continue to monitor. (05/14) Chart reviewed. Labs and meds reviewed. 63yo F, who was admitted for CHF. Currently on lasix. Stage IV CKD - not on dialysis. Visited pt in the room. Pt reported decreased appetite for 2 years due to gastroparesis. Pt contributed her weight gain to fluid retention. Pt denied any nausea or vomiting. No known food allergy. Pt denied any chewing or swallowing difficulty. Pt appeared to be morbidly obese and on strict I&O. Obtained food preferences. Will re-evaluate when pt feels better. Current Diet: Renal diet Malnutrition Evaluation (05/14) The patient does not meet criteria for a specified degree of malnutrition at this time. Will re-evaluate at follow-up as appropriate. Estimated Nutritional Needs: 8685-4326 calories/day (22-25 kcal/kg IBW) 72-119 g protein/day (1.5-2 g pro/kg IBW) Diet Adequacy: Not meeting calorie needs, Not meeting protein needs Tolerance: Unable to assess Diet Education Needs Assessment: Diet education not indicated. Nutrition Care Level: low Nutrition Diagnosis: Inadequate energy intake related to decreased ability to consume sufficient energy secondary to decreased appetite as evidenced by poor PO intake. Goal: Patient will meet 75-100% of estimated needs by follow up Progress: Not Progressing Interventions: -Mineral- modified diet, Commercial beverage Monitoring/Evaluation: -Total energy intake, Total protein intake, Modified diet, Liquid supplement, Weight change Signed: Kami Fonseca, DAFNE, LD
[2019-05-31] MEDS: TRAZODONE HCL 50 MG TAB PO SCH (21:16)
[2019-06-01] VITALS (9 sets, daily range): BP systolic 87–154; BP diastolic 75–92
[2019-06-01] MEDS: IPRATROPIUM BROMIDE 0.02% 2.5 ML NEB NEB SCH ×4 (01:56→15:45)
[2019-06-01] MEDS: HYDROMORPHONE 1MG/1ML INJ IV PRN ×4 (02:06→19:28)
[2019-06-01 06:01] LABS: BASOPHILS # (AUTO) 0.1 (0.0-0.1); BASOPHILS % 0.5 % (0.0-1.0); EOSINOPHILS # (AUTO) 0.5 (0.0-0.4); EOSINOPHILS % 2.2 % (0.0-6.0); HEMATOCRIT 37.3 % (34.2-44.1); HEMOGLOBIN 12.1 g/dL (12.0-16.0); LYMPHOCYTES % 10.1 % (18.0-39.1); MEAN CORPUSCULAR HEMOGLOBIN 29.2 pg (28-32); MEAN CORPUSCULAR HGB CONC 32.4 g/dL (31-35); MEAN CORPUSCULAR VOLUME 90.1 fL (81-99); MONOCYTES # (AUTO) 1.9 (0.2-0.8); MONOCYTES % 9.4 % (4.4-11.3); NEUTROPHILS # (AUTO) 15.4 (2.1-6.9); NEUTROPHILS % 76.7 % (38.7-80.0); PLATELET COUNT 331 x10e3/uL (140-360); RED BLOOD COUNT 4.14 x10e6/uL (3.6-5.1); RED CELL DISTRIBUTION WIDTH 16.9 % (11.7-14.4)
[2019-06-01 06:21] LABS: ALBUMIN 2.3 g/dL (3.5-5.0); ALBUMIN/GLOBULIN RATIO 0.6 (0.8-2.0); ANION GAP 10.9 mmol/L (8-16); CALCIUM 8.8 mg/dL (8.4-10.2); CREATININE, SERUM 5.23 mg/dL (0.57-1.11); MAGNESIUM 1.8 MG/DL (1.3-2.1); POTASSIUM 3.9 mmol/L (3.5-5.1)
[2019-06-01] MEDS: METRONIDAZOLE 500MG/NS 100ML 100 ML IV SCH ×2 (06:36→14:19)
[2019-06-01] MEDS: VANCOMYCIN 250MG/5ML ORAL SOLN PO SCH ×4 (06:43→18:38)
--- NOTE | 2019-06-01 07:32 | NUR ---
pt resting, vs stable. beginning dialysis
[2019-06-01] MEDS ORDERED: HEPARIN SOD (PORCINE) 1000 UNIT/ML SDV IV PRN (08:15)
[2019-06-01] MEDS ORDERED: MANNITOL 25% 12.5GM/50 ML VIAL IV PRN (08:15)
[2019-06-01] MEDS: METOPROLOL TARTRATE 50 MG TAB PO SCH ×2 (09:00→18:41)
[2019-06-01] MEDS: AMIODARONE HCL 200 MG TAB PO SCH ×3 (09:00→18:38)
[2019-06-01] MEDS: LIOTHYRONINE SODIUM 5 MCG TAB PO SCH (09:25)
[2019-06-01] MEDS: DULOXETINE HCL 30 MG DELAYED RELEASE PO SCH (09:25)
[2019-06-01] MEDS: BALSAM PERU/CASTOR OIL 60 GM OINT...G. TP SCH (09:25)
[2019-06-01] MEDS: FLUCONAZOLE 100 MG TAB PO SCH (09:25)
[2019-06-01] MEDS: PANTOPRAZOLE SOD 40 MG TABEC PO SCH (09:25)
[2019-06-01 09:31] LABS: EOSINOPHILS % (MANUAL) 1 % (0-7); LYMPHOCYTES % (MANUAL) 11 % (19-48); MONOCYTES % (MANUAL) 3 % (3.4-9.0); NEUTROPHILS % (MANUAL) 85 % (40-74)
[2019-06-01 09:32] LABS: ANISOCYTOSIS SLIGHT; PLATELET ESTIMATE ADEQUATE; PLATELET MORPHOLOGY COMMENT NORMAL; POIKILOCYTOSIS SLIGHT; RBC MORPHOLOGY COMMENT NORMAL
--- NOTE | 2019-06-01 16:00 | NUR ---
MOT RECEIVED FROM JENNIFER BAKER. SABI KNOX CALLED FOR DC FOR PT. LONG-TERM ACUTE CARE DISCHARGE INFORMATION PATIENT HAS BEEN ACCEPTED TO: NAME: [facility] ADDRESS: [address] [place] [id number] ACCEPTING SOCIOCULTURAL ANTHROPOLOGY PROFESSOR: YVONNE KRUGERO ACCEPTING MD: Lisa LOPEZ ROOM: 158 NURSE CALL REPORT TO: [phone] THE FOLLOWING DOCUMENTS MUST ACCOMPANY PATIENT FOR TRANSFER: COPIED CHART: SABI KNOX MOT INFO RECEIVED FROM: MARTA RICHARD [facility] ORDER/RECONCILED MED LIST: ABILIO CELESTIN [id number] DNR: N/A
--- NOTE | 2019-06-01 16:03 | NUR ---
dialysis removed 2L. pt remains stable. son at bedside. report called to Nathalia zelaya [place]
--- NOTE | 2019-06-01 17:37 | NUR ---
MET W THE PT AND SON AT THE BEDSIDE TO SIGN MOT FOR TRANSFER. THE SON CALLED HIS FATHER; SRIDHAR. THE STATES HE WAS TOLD BY DR. ACOSTA THAT SHE WOULD DO HD HERE AND EAT TO GET STRONGER AND BYPASS LTAC AND GO TO A REHAB. EXPLAINED TO THE THE PT WAS TRANSITIONING TO THE APPROPRIATE LOC TO GET STRONGER, BUT HE REFUSED AND STATES HE NEEDED TO TALK TO DR. ACOSTA FIRST. DISCUSSED WITH SABI KNOX. MOT WAS GIVEN TO HER AND SHE WILL GET SIGNATURE ONCE DR. ACOSTA HAS BEEN REACHED. NOTIFIED TIA / [place] SUPER ALSO. LEFT MESSAGE W DR. ACOSTA.
--- NOTE | 2019-06-01 19:53 | Progress Note ---
DATE: 06/01/2019 Cardiology Progress Note SUBJECTIVE: The patient denies chest pain or shortness of breath, however, she continues to be confused and reports seeing things on the mejía. OBJECTIVE: VITAL SIGNS: Temperature 97.6 degrees, pulse 92, respiratory rate 18, blood pressure 118/81, and oxygen saturation 99% on 3 L nasal cannula. GENERAL: Morbidly obese woman, in no acute distress. Awake and alert. LUNGS: Clear to auscultation bilaterally. No wheezes or crackles. CARDIOVASCULAR: Normal rate. Irregularly irregular. No murmur. Normal S1 and S2. ABDOMEN: Soft and nontender. EXTREMITIES: No edema. NEURO: Nonfocal exam. CARDIAC MEDICATIONS: Amiodarone 200 mg p.o. b.i.d., liothyronine 25 mcg p.o. daily, and metoprolol tartrate 50 mg p.o. b.i.d. LABORATORY DATA: WBC 20.09, hemoglobin 12.1, hematocrit 37.3, and platelets 331. Sodium 135, potassium 3.9, chloride 101, CO2 27, BUN 20, and creatinine 5.23. Telemetry was personally reviewed and interpreted, revealing atrial fibrillation, rate controlled. IMPRESSION: 1. Atrial fibrillation. 2. Chest pain. 3. Sepsis. 4. Brgqk-xs-fpnryjj diastolic heart failure. 5. Wozlq-wx-uxlqmso kidney disease, now initiated on hemodialysis. 6. Coronary artery disease with prior stent. 7. Hypertension. 8. Hyperlipidemia. 9. Morbid obesity. RECOMMENDATIONS: The patient's blood pressure is acceptable. Continue current cardiac medications. Heart rate is controlled. Resume anti-platelet therapy and anticoagulation once acceptable from a surgical standpoint. Volume management per Nephrology, as the patient is now on hemodialysis. Antibiotics per Infectious Disease. Thank you for this consult. We will continue to follow. Nisa Hicks MD ABS/MODL /[id number]
--- NOTE | 2019-06-01 20:39 | Progress Note ---
DATE: SUBJECTIVE: Ms. Preciado, who is currently lying in bed comfortably. She states she is feeling better. REVIEW OF SYSTEMS: HEENT: Negative. PULMONARY: Negative. CARDIAC: Negative. : Negative. She had AV fistula site recently, looks good. The patient has history of obesity, atrial fibrillation, comes in with sepsis and septic shock, currently improving, but she remains very weak. The plan for her to go to an LTAC. Family at the bedside. There is no more diarrhea. She has abdominal pain. PHYSICAL EXAMINATION: GENERAL: She is currently alert, oriented, does not seem to be in acute distress. VITAL SIGNS: Stable currently, afebrile. HEENT: She is not icteric. NECK: Supple. CHEST: Clear bilateral. HEART: S1, S2. No S3, S4, or murmur. ABDOMEN: Soft. Bowel sounds present. No tenderness. EXTREMITIES: No edema. SKIN: There is no rash. IMPRESSION: 1. Sepsis, presented with Clostridium difficile. Continue with treatment as ordered from debility. 2. Bacteriuria. 3. Anemia, her white count remains elevated at 20.09, but clinically improving. We will follow the patient. Thank you for asking me to see this patient. MD RUBEN Mauricio/ZOE /[id number]
--- NOTE | 2019-06-12 08:14 | Discharge Summary ---
DISCHARGE DIAGNOSES: 1. Sepsis secondary to Escherichia coli and Enterococcus in the urine. 2. Congestive heart failure. 3. Chronic obstructive pulmonary disease. 4. End-stage renal disease, hypertension, diabetes. HISTORY OF PRESENT ILLNESS AND HOSPITAL COURSE: See hospital chart for full details. The patient is a lady with severe comorbidities, morbid obesity, presented with weakness and shortness of breath, found to have some CHF and also sepsis secondary to what grew out E coli and Enterococcus in the urine. Once the patient became more stabilized, she was then transferred to skilled facility for continued IV antibiotics, but of note, the patient did have some episodes where she was giving up. She had decreased p.o. intake. She was telling the that she wanted to . After having a discussion with the patient and the , she seemed to have an improved attitude to try to do better. So, she started increasing her p.o. intake. So, hopefully when she gets over to the skilled facility, she will engage more therapy and eating, which I told her as well as the that if she does not eat well and does not participate in therapy that she will continue to deteriorate and gets more sick and then unfortunately which at times, I believe, is what the patient would like since she is mostly homebound and a lot of times bed-bound, chair-bound. Please see hospital chart for full details. MD RITA Michael/ZOE /[id number]
== END 2019-06-01 20:14 | DRG 291 ==
LOC: ER 18:57 → ERHOLD 22:25 → ICU 05-14 02:30 → MED/SURG 05-20 16:55 → ICU 05-25 10:19 → IMCU 05-29 16:33
PROVIDERS: ADMIT Internal Medicine; ATTEND Internal Medicine
PROC: 5A09357 Assistance with Respiratory Ventilation, Less than 24 Consecutive Hours, Continuous Positive Airway Pressure (ICD-10-PCS; 2019-05-14)
PROC: 02HV33Z Insertion of Infusion Device into Superior Vena Cava, Percutaneous Approach (ICD-10-PCS; 2019-05-16)
PROC: B548ZZA Ultrasonography of Superior Vena Cava, Guidance (ICD-10-PCS; 2019-05-16)
PROC: 5A1D70Z Performance of Urinary Filtration, Intermittent, Less than 6 Hours Per Day (ICD-10-PCS; 2019-05-16)
PROC: 5A1D70Z Performance of Urinary Filtration, Intermittent, Less than 6 Hours Per Day (ICD-10-PCS; 2019-05-17)
PROC: 5A1D70Z Performance of Urinary Filtration, Intermittent, Less than 6 Hours Per Day (ICD-10-PCS; 2019-05-18)
PROC: 5A1D70Z Performance of Urinary Filtration, Intermittent, Less than 6 Hours Per Day (ICD-10-PCS; 2019-05-19)
PROC: 5A1D70Z Performance of Urinary Filtration, Intermittent, Less than 6 Hours Per Day (ICD-10-PCS; 2019-05-20)
PROC: 06PY33Z Removal of Infusion Device from Lower Vein, Percutaneous Approach (ICD-10-PCS; principal; 2019-05-23)
PROC: 02H633Z Insertion of Infusion Device into Right Atrium, Percutaneous Approach (ICD-10-PCS; 2019-05-23)
PROC: 0JH63XZ Insertion of Tunneled Vascular Access Device into Chest Subcutaneous Tissue and Fascia, Percutaneous Approach (ICD-10-PCS; 2019-05-23)
PROC: 5A1D70Z Performance of Urinary Filtration, Intermittent, Less than 6 Hours Per Day (ICD-10-PCS; 2019-05-23)
PROC: 5A1D70Z Performance of Urinary Filtration, Intermittent, Less than 6 Hours Per Day (ICD-10-PCS; 2019-05-25)
PROC: 3E043XZ Introduction of Vasopressor into Central Vein, Percutaneous Approach (ICD-10-PCS; 2019-05-25)
PROC: 5A1D70Z Performance of Urinary Filtration, Intermittent, Less than 6 Hours Per Day (ICD-10-PCS; 2019-05-26)
PROC: 06H033Z Insertion of Infusion Device into Inferior Vena Cava, Percutaneous Approach (ICD-10-PCS; 2019-05-28)
PROC: B549ZZA Ultrasonography of Inferior Vena Cava, Guidance (ICD-10-PCS; 2019-05-28)
PROC: 5A1D70Z Performance of Urinary Filtration, Intermittent, Less than 6 Hours Per Day (ICD-10-PCS; 2019-05-28)
PROC: 5A1D70Z Performance of Urinary Filtration, Intermittent, Less than 6 Hours Per Day (ICD-10-PCS; 2019-05-30)
PROC: 03WY33Z Revision of Infusion Device in Upper Artery, Percutaneous Approach (ICD-10-PCS; 2019-05-30)
PROC: 5A1D70Z Performance of Urinary Filtration, Intermittent, Less than 6 Hours Per Day (ICD-10-PCS; 2019-06-01)
DX: I13.2 Hypertensive heart and chronic kidney disease with heart failure and with stage 5 chronic kidney disease, or end stage renal disease (principal); A41.9 Sepsis, unspecified organism; N18.6 End stage renal disease; I50.33 Acute on chronic diastolic (congestive) heart failure; G92 Toxic encephalopathy; J18.9 Pneumonia, unspecified organism; R65.21 Severe sepsis with septic shock; J96.01 Acute respiratory failure with hypoxia; J44.1 Chronic obstructive pulmonary disease with (acute) exacerbation; N39.0 Urinary tract infection, site not specified; Z68.42 Body mass index [BMI] 45.0-49.9, adult; N17.9 Acute kidney failure, unspecified; A04.72 Enterocolitis due to Clostridium difficile, not specified as recurrent; Z68.41 Body mass index [BMI] 40.0-44.9, adult; B37.49 Other urogenital candidiasis; Z16.22 Resistance to vancomycin related antibiotics; G47.33 Obstructive sleep apnea (adult) (pediatric); M62.3 Immobility syndrome (paraplegic); I48.0 Paroxysmal atrial fibrillation; E03.9 Hypothyroidism, unspecified; I25.2 Old myocardial infarction; Z87.440 Personal history of urinary (tract) infections; D64.9 Anemia, unspecified; E78.5 Hyperlipidemia, unspecified; Z82.49 Family history of ischemic heart disease and other diseases of the circulatory system; Z83.3 Family history of diabetes mellitus; M54.30 Sciatica, unspecified side; Z85.53 Personal history of malignant neoplasm of renal pelvis; Z90.5 Acquired absence of kidney; Z90.49 Acquired absence of other specified parts of digestive tract; I25.10 Atherosclerotic heart disease of native coronary artery without angina pectoris; Z95.5 Presence of coronary angioplasty implant and graft; K58.9 Irritable bowel syndrome, unspecified; K52.9 Noninfective gastroenteritis and colitis, unspecified; E66.01 Morbid (severe) obesity due to excess calories; D63.8 Anemia in other chronic diseases classified elsewhere; Z88.1 Allergy status to other antibiotic agents; Z88.5 Allergy status to narcotic agent; Z88.0 Allergy status to penicillin; Z88.2 Allergy status to sulfonamides; Z88.8 Allergy status to other drugs, medicaments and biological substances; Z91.048 Other nonmedicinal substance allergy status; R91.1 Solitary pulmonary nodule; B96.20 Unspecified Escherichia coli [E. coli] as the cause of diseases classified elsewhere; B95.2 Enterococcus as the cause of diseases classified elsewhere; R25.3 Fasciculation; E87.6 Hypokalemia; E11.21 Type 2 diabetes mellitus with diabetic nephropathy; R62.7 Adult failure to thrive; R53.1 Weakness; R63.0 Anorexia; F32.9 Major depressive disorder, single episode, unspecified
CPT/HCPCS: 36415; 36556; 36558; 36600; 51700; 71045; 74176; 74470; 76937; 76942; 77001; 80048; 80053; 80061; 81001; 82550; 82553; 82805; 82948; 83605; 83735; 83880; 84100; 84132; 84436; 84443; 84479; 84484; 85025; 85610; 85730; 86704; 86705; 86707; 87040; 87086; 87186; 87340; 87493; 90962; 93005; 93306; 94640; 94660; 97139; 99152; 99153; 99284; C1769; C1892; J0461; J1160; J1170; J1200; J1630; J1644; J1940; J1956; J2001; J2020; J2060; J2185; J2250; J2405; J2710; J2720; J2930; J2997; J3010; J3370; J3475; J7030; J7040; J7050; Q0162

== ENCOUNTER 2020-01-09 10:22 | Observation (INO) | payer BC ==
[~2020-01-09] VITALS: Ht 167.6 cm; Wt 100.2 kg
[~2020-01-09 10:22] MED LIST changes: +METOPROLOL SUC100 MG PO
--- OUTSIDE RECORDS SUMMARY | 2020-01-09 11:10 | XMS REPORT | Clinical Summary ---
Author Author MAYELIN [facility] Address Unknown Phone Unavailable Care Team Providers Care Technical Planner Name Role Phone PCP Unavailable Allergies Comments Active Allergy Reactions Severity Noted Date Amoxicillin-Pot 09/21/2019 Clavulanate Codeine 09/21/2019 Meperidine 09/21/2019 Cephalexin 09/21/2019 Penicillins 09/21/2019 Sulfa (Sulfonamide 09/21/2019 Antibiotics) Medications End Date Status Medication Sig Dispensed Refills Start Date Active amiodarone (PACERONE) 200 0 MG tablet 0 Active cloNIDine HCL (CATAPRES) 0 0.1 MG tablet 0 Active DULoxetine (CYMBALTA) 30 0 MG capsule 0 Active ELIQUIS 5 MG tablet 0 0 Active metoclopramide HCl 0 (REGLAN) 10 MG tablet 0 Active metoprolol tartrate 0 (LOPRESSOR) 25 MG tablet 0 Active midodrine (PROAMATINE) 10 0 MG tablet 0 Active clopidogreL (PLAVIX) 75 0 mg tablet 0 Active pantoprazole (PROTONIX) 0 40 MG tablet 0 Active traZODone (DESYREL) 100 0 MG tablet 0 Active ezetimibe (ZETIA) 10 mg 0 tablet 0 Active fluconazole (DIFLUCAN) 0 100 MG tablet 0 Active levoFLOXacin (LEVAQUIN) 0 500 MG tablet 0 Active Problems Not on file Encounters Care Team Description Date Type Specialty Jovon Braswell MD ESRD (end stage renal disease) on dialys is ([facility]) (Primary Dx); Encounter regarding vascular access for dialysis for end-stage renal disease (HCC); Essential hypertension 09/26/2019 Video - Cardiology Telemedicine after 01/08/2019 Social History Date Tobacco Use Types Packs/Day Years Used Never Smoker Smokeless Tobacco: Never Used Drinks/Week oz/Week Comments Alcohol Use No Alcohol Habits Answer Date Recorded How often do you have a drink containing alcohol? Never 09/21/2019 How many drinks containing alcohol do you have on No t asked a typical day when you are drinking? How often do you have six or more drinks on one Not asked occasion? Sex Assigned at Date Recorded Not on file Last Filed Vital Signs Not on file Plan of Treatment Not on file Results Not on fileafter 01/08/2019
--- OUTSIDE RECORDS SUMMARY | 2020-01-09 11:11 | XMS REPORT | Continuity of Care Document ---
Author Author [facility] t Organization [facility] Address [address] [place] [address] Phone Unavailable Care Team Providers Care Fire Protection Equipment Technician Name Role Phone KYLEE ACOSTA MD PCP Blake Braswell MD Attphys [phone] KYLEE ACOSTA Attphys Unavailable HAMPEL, AN Attphys Unavailable DALIA BRASWELL Attphys Unavailable SCHIESSER, L PRISCILLA Attphys Unavailable MANEEVESE, V RONY Attphys Unavailable KYLEE ACOSTA Admphys Unavailable Payers Payer Name Policy Type Policy Number Effective Date Expiration Date S reddy [facility] [id number] I [facility] [id number] 2017 00:00:00 [facility] Problems Condition Name Condition Details Condition Category Status Onset Date Resolution Date Last Treatment Date Treating Clinician Comments Source Multiple gallstones Gallstones Problem Active 2015-05-05 00:00:00 [facility] Renal colic on right side Renal colic on right side Problem Ac tive 2014-08-25 00:00:00 [facility] Congestive heart failure CHF (congestive heart failure) Problem Active [facility] Cerebrovascular accident (CVA) CVA (cerebrovascular accident) Problem Active [facility] Chest pain Chest pain Problem Active [facility] Chronic obstructive pulmonary disease COPD (chronic ob structive pulmonary disease) Problem Active [facility] Weakness Weakness Problem Active [facility] Urinary tract infection UTI (urinary tract infection) Problem Active [facility] Atrial fibrillation with rapid ventricular response At rial fibrillation with RVR Problem Active [facility] Hypoxia Hypoxia Problem Active [facility] Respiratory distress Respiratory distress Problem Active [facility] Allergies, Adverse Reactions, Alerts Allergy Name Allergy Type Status Severity Reaction(s) Onset Date Inacti ve Date Treating Clinician Comments Source Amoxicillin-Pot Clavulanate Propensity to adverse reactions Active 2019-09-21 00:00:00 [facility] Codeine Propensity to adverse reactions Active 2019-09-21 0 0:00:00 [facility] Meperidine Propensity to adverse reactions Active 1 00:00:00 [facility] Cephalexin Propensity to adverse reactions Active 1 00:00:00 [facility] Penicillins Propensity to adverse reactions Active 2019 00:00:00 [facility] Sulfa (Sulfonamide Antibiotics) Propensity to adverse reactions Activ e 2019-09-21 00:00:00 [facility] Sulfa (Sulfonamide Antibiotics) DA Active 2018-12-20 00 :00:00 [facility] gabapentin DA Active SV 2018-12-20 00:00:00 [facility] Penicillins DA Active SV 2018-03-31 00:00:00 [facility] Cttsnbw-Nri-Xll Reductase Inhibitor DA Active 9 00:00:00 [facility] morphine DA Active SV 2018-03-31 00:00:00 [facility] codeine DA Active SV 2018-03-31 00:00:00 [facility] methocarbamol DA Active SV 2018-03-31 00:00:00 [facility] cephalexin DA Active SV 2018-03-31 00:00:00 [facility] tetracycline DA Active SV 2018-03-31 00:00:00 [facility] erythromycin base DA Active SV 2018-03-31 00:00:00 [facility] clavulanic acid DA Active 2018-03-31 00:00:00 [facility] imipenem DA Active 2018-03-31 00:00:00 [facility] adhesive tape DA Active 2018-03-31 00:00:00 [facility] amoxicillin DA Active 2018-03-31 00:00:00 [facility] cilastatin DA Active 2018-03-31 00:00:00 [facility] meperidine DA Active 2018-03-31 00:00:00 [facility] Penicillin Allergy to Substance Active 2018-01-25 00:00:00 [facility] Sulfa (Sulfonamide Antibiotics) Allergy to Substance Active 2018-01-25 00:00:00 [facility] Morphine Allergy to Substance Active 2018-01-25 00:00:00 [facility] Codeine Allergy to Substance Active 2018-01-25 00:00:00 [facility] Methocarbamol Allergy to Substance Active 2018-01-25 00:00: 00 [facility] Albuterol Allergy to Substance Active 2018-01-25 00:00:00 [facility] Lactose Propensity to adverse reactions Active Severe 00:00:00 [facility] Cephalexin Allergy to Substance Active 2018-01-25 00:00:00 [facility] Tetracycline Allergy to Substance Active 2018-01-25 00:00:0 0 [facility] Erythromycin base Allergy to Substance Active 2018-01-25 00 :00:00 [facility] Imipenem Allergy to Substance Active RASH 2018-01-25 00:00:00 [facility] Amoxicillin Allergy to Substance Active 2018-01-25 00:00:00 [facility] Gabapentin Allergy to Substance Active 2018-01-25 00:00:00 [facility] Cilastatin Allergy to Substance Active RASH 2018-01-25 00:00:00 [facility] Meperidine Allergy to Substance Active 2018-01-25 00:00:00 [facility] Atorvastatin Allergy to Substance Active Moderate itching and m uscle cramps 2018-01-25 00:00:00 [facility] Penicillins DA Active SV 2016-03-07 00:00:00 [facility] Oqygwcr-Bec-Hen Reductase Inhibitor DA Active SV 2016-02-21 00:00:00 [facility] morphine DA Active SV 2016-03-07 00:00:00 [facility] codeine DA Active SV 2016-03-07 00:00:00 [facility] methocarbamol DA Active SV 2016-03-07 00:00:00 [facility] cephalexin DA Active SV 2016-03-07 00:00:00 [facility] tetracycline DA Active SV 2016-03-07 00:00:00 [facility] erythromycin base DA Active SV 2016-03-07 00:00:00 [facility] clavulanic acid DA Active SV 2016-03-07 00:00:00 [facility] imipenem DA Active SV 2016-03-07 00:00:00 [facility] adhesive tape DA Active SV 2016-03-07 00:00:00 [facility] amoxicillin DA Active SV 2016-03-07 00:00:00 [facility] cilastatin DA Active SV 2016-03-07 00:00:00 [facility] meperidine DA Active SV 2016-03-07 00:00:00 [facility] TAPE Allergy to Substance Active Mild RASH 2009-04-17 00:00:00 [facility] Social History Social Habit Start Date Stop Date Quantity Comments Source History SDOH Alcohol Std Drinks [facility] History SDOH Alcohol Binge [facility] Sex Assigned At [facility] Tobacco use and exposure 2019-09-21 00:00:00 2019-09-21 00:00:00 Brian pineda used [facility] Alcohol intake 2019-09-21 00:00:00 2019-09-21 00:00:00 Current non-drinker of alcohol (finding) [facility] History SDOH Alcohol Frequency 2019-09-21 00:00:00 2019-09-21 00:00:0 0 1 [facility] Smoking Status Start Date Stop Date Source Never smoker [facility] Medications Ordered Medication Name Filled Medication Name Start Date Stop Da te Current Medication? Ordering Clinician Indication Dosage Frequency Signature (SIG) Comments Components Source ELIQUIS 5 MG tablet 2019-09-10 00:00:00 Yes [facility] amiodarone (PACERONE) 200 MG tablet 2019-09-08 00:00:00 Yes [facility] cloNIDine HCL (CATAPRES) 0.1 MG tablet 2019-09-08 00:00:00 Yes [facility] DULoxetine (CYMBALTA) 30 MG capsule 2019-09-08 00:00:00 Yes [facility] metoclopramide HCl (REGLAN) 10 MG tablet 2019-09-08 00:00:00 Y es [facility] r metoprolol tartrate (LOPRESSOR) 25 MG tablet 2019-09-08 00:00:00 Yes [facility] midodrine (PROAMATINE) 10 MG tablet 2019-09-08 00:00:00 Yes [facility] clopidogreL (PLAVIX) 75 mg tablet 2019-09-08 00:00:00 Yes [facility] pantoprazole (PROTONIX) 40 MG tablet 2019-09-08 00:00:00 Yes [facility] traZODone (DESYREL) 100 MG tablet 2019-09-08 00:00:00 Yes [facility] ezetimibe (ZETIA) 10 mg tablet 2019-09-08 00:00:00 Yes [facility] fluconazole (DIFLUCAN) 100 MG tablet 2019-09-08 00:00:00 Yes [facility] levoFLOXacin (LEVAQUIN) 500 MG tablet 2019-09-08 00:00:00 Yes [facility] Metronidazole 500 Mg Tablet, 500 Mg Oral Metronidazole 500 Mg Tablet, 500 Mg Oral 2015-05-11 00:00:00 2016-01-20 00:00:00 No Jaspreet grande Md 500 Three Times A Day [facility] Alprazolam 1 Mg Tablet Alprazolam 1 Mg Tablet Yes 1 Three Times A Day for Anxiety [facility] Amlodipine Besylate 10 Mg Tablet Amlodipine Besylate 10 Mg Tablet Yes 10 Daily [facility] Bumetanide 1 Mg Tablet Bumetanide 1 Mg Tablet Yes 1 Twice A Day [facility] Clonidine Hcl 0.1 Mg Tablet Clonidine Hcl 0.1 Mg Tablet Yes 1 Every 6 Hours as needed for High Blood Pressure [facility] Clopidogrel Bisulfate (Plavix) 75 Mg Tablet Clopidogre l Bisulfate (Plavix) 75 Mg Tablet Yes 75 Daily [facility] Dexlansoprazole (Dexilant) 30 Mg Cap. Dexlansopra zole (Dexilant) 30 Mg Cap. Yes 60 Daily [facility] Dicyclomine Hcl 10 Mg Capsule Dicyclomine Hcl 10 Mg Capsule Yes 10 Twice A Day [facility] Duloxetine Hcl (Cymbalta) 60 Mg Capsule. Duloxetine Hcl (Cymbalta) 60 Mg Capsule. Yes 60 Twice A Day [facility] Hydralazine Hcl 25 Mg Tab Hydralazine Hcl 25 Mg Tab Yes 50 Twice A Day [facility] Hydromorphone Hcl (Dilaudid) 2 Mg Tab Hydromorphone Hcl (Dilaudid) 2 Mg Tab Yes 4 Every 8 Hours as needed for Moderate Josh n (4-6) [facility] Hydroxyzine Hcl 25 Mg Tablet Hydroxyzine Hcl 25 Mg Tablet Y es 25 Twice A Day as needed for Itching [facility] Isosorbide Mononitrate (Isosorbide Mononitrate Er) 30 Mg Tab.er.24h Isosorbide Mononitrate (Isosorbide Mononitrate Er) 30 Mg Tab.er.24h Yes 90 Twice A Day [facility] Linzess Linzess Yes 290 Twice A Day [facility] Liothyronine Sodium (Cytomel) 25 Mcg Tablet Liothyroni ne Sodium (Cytomel) 25 Mcg Tablet Yes 25 Daily [facility] Metaxalone 800 Mg Tablet Metaxalone 800 Mg Tablet Yes 800 Four Times Daily [facility] Metoclopramide Hcl (Reglan) 10 Mg Tablet Metoclopramid e Hcl (Reglan) 10 Mg Tablet Yes 10 Three Times A Day [facility] Metoprolol Er Metoprolol Er Yes 300 Daily [facility] Metoprolol Succinate 100 Mg Tab.er.24h Metoprolol Succinate 100 Mg Tab.er.24h Yes 1 Daily [facility] Nitroglycerin 0.4 Mg Tab.subl Nitroglycerin 0.4 Mg Tab.subl Yes .4 Every 5 Minutes as needed for Chest Pain [facility] Ondansetron Hcl (Zofran) 8 Mg Tablet Ondansetron Hcl (Zofran) 8 Mg Tablet Yes 4 Every 4 Hours as needed for Nausea And V omiting [facility] Oxybutynin Chloride 5 Mg Tablet Oxybutynin Chloride 5 Mg Tablet Yes 5 Twice A Day [facility] Potassium Chloride 10 Meq Tab.er.prt Potassium Chloride 10 Meq Tab. er.prt Yes 10 as needed for When Taking Fluid Pill [facility] Repatha 1 Syr Repatha 1 Syr Yes 140 Q Other Sund ay [facility] Terbinafine Hcl 250 Mg Tablet Terbinafine Hcl 250 Mg Tablet Yes 250 Daily [facility] Trazodone Hcl 100 Mg Tablet Trazodone Hcl 100 Mg Tablet Yes 600 Bedtime [facility] Warfarin Sodium 3 Mg Tablet Warfarin Sodium 3 Mg Tablet Yes 3 Today At 6:00PM [facility] Amlodipine Besylate (Norvasc) 5 Mg Tab, 10 Mg Oral Aml odipine Besylate (Norvasc) 5 Mg Tab, 10 Mg Oral 2019-01-06 00:00:00 No 10 Daniela ly [facility] Liothyronine Sodium (Cytomel) 25 Mcg Tablet, 25 Mcg Or al Liothyronine Sodium (Cytomel) 25 Mcg Tablet, 25 Mcg Oral 2019-01-06 00:00:00 No 25 Daily@0600 [facility] Metoprolol Succinate 50 Mg Tab.er.24h, 200 Mg Oral Met oprolol Succinate 50 Mg Tab.er.24h, 200 Mg Oral 2019-01-06 00:00:00 No 200 Daily [facility] Warfarin Sodium (Coumadin) 2 Mg Tablet, 4 Mg Oral Warf elif Sodium (Coumadin) 2 Mg Tablet, 4 Mg Oral 2019-01-06 00:00:00 No 4 Tod ay At 6:00PM [facility] Buspirone Hcl 5 Mg Tablet, 15 Mg Oral Buspirone Hcl 5 Mg Tablet, 15 Mg Oral 2018-09-21 00:00:00 No 15 Twice A Day [facility] Fluconazole (Diflucan) 100 Mg Tablet, 100 Mg Oral Fluc onazole (Diflucan) 100 Mg Tablet, 100 Mg Oral 2018-09-21 00:00:00 No 100 Joaquin y [facility] Tizanidine Hcl 4 Mg Tablet, 4 Mg Oral Tizanidine Hcl 4 Mg Tablet , 4 Mg Oral 2018-09-21 00:00:00 No 4 Three Times A Day as needed for Muscle Spasms [facility] Dicyclomine Hcl 10 Mg Capsule, 10 Mg Oral Dicyclomine Hcl 10 Mg Capsule, 10 Mg Oral 2018-05-23 00:00:00 No 10 Thre e Times A Day as needed for Diarrhea [facility] Hydrocodone Bit/Acetaminophen (Hydrocodo n-Acetaminophn 10-325) 1 Each Tablet, 10-325 Oral Hydrocodone Bit/Acetaminophen (Hydrocodo n-Acetaminophn 10-325) 1 Each Tablet, 10-325 Oral 2018-05-23 00:00:00 No Every 8 Hours [facility] Tizanidine Hcl 4 Mg Capsule, 4 Mg Oral Tizanidine Hcl 4 Mg Capsu le, 4 Mg Oral 2018-05-23 00:00:00 No 4 Three Times A Day as needed for Muscle Spasms [facility] Aspirin 81 Mg Tab.chew, 81 Mg Oral Aspirin 81 Mg Tab.chew, 81 Mg Oral 2018-03-03 00:00:00 No 81 Daily [facility] Atenolol 100 Mg Tablet, 100 Mg Oral Atenolol 100 Mg Tablet, 100 Mg Oral 2018-03-03 00:00:00 No 100 Daily [facility] Docusate Sodium 250 Mg Capsule, 250 Mg Oral Docusate S odium 250 Mg Capsule, 250 Mg Oral 2018-03-03 00:00:00 No 250 Daily [facility] Prasugrel Hcl (Effient) 10 Mg Tablet, 10 Mg Oral Prasu grel Hcl (Effient) 10 Mg Tablet, 10 Mg Oral 2018-03-03 00:00:00 No 10 Daily [facility] Prasugrel Hcl (Effient) 10 Mg Tablet, 10 Mg Oral Prasu grel Hcl (Effient) 10 Mg Tablet, 10 Mg Oral 2018-03-03 00:00:00 No 10 Daily [facility] Docusate Sodium (Colace) 100 Mg Cap, 100 Mg Oral Docus ate Sodium (Colace) 100 Mg Cap, 100 Mg Oral 2016-12-22 00:00:00 No 100 Daily [facility] Alprazolam (Xanax) 0.5 Mg Tablet, 1 Mg Oral Alprazolam (Xanax) 0.5 Mg Tablet, 1 Mg Oral 2016-05-11 00:00:00 No 1 Three Times A Da y [facility] Metformin Hcl 500 Mg Tablet, 1000 Mg Oral Metformin Hc l 500 Mg Tablet, 1000 Mg Oral 2016-05-11 00:00:00 No 1000 Twice A Day [facility] Olmesartan/Hydrochlorothiazide (Benicar Hct 40-25 Mg Tablet) 1 Each Tablet, Oral Olmesartan/Hydrochlorothiazide (Benicar Hct 40-25 Mg Tablet) 1 Each Tablet, Oral 2016-05-11 00:00:00 No Daily [facility] Ondansetron (Zofran Odt) 4 Mg Tab.rapdis, 4 Mg Ondanse caitlin (Zofran Odt) 4 Mg Tab.rapdis, 4 Mg 2016-05-11 00:00:00 No 4 Every 6 Hours [facility] Levalbuterol Tartrate (Xopenex Hfa) 15 Gm Hfa.aer.ad, Levalbuterol Tartrate (Xopenex Hfa) 15 Gm Hfa.aer.ad, 2016-01-13 00:00:00 No [facility] Armodafinil (Nuvigil) 150 Mg Tablet, 150 Mg Oral Armod afinil (Nuvigil) 150 Mg Tablet, 150 Mg Oral 2015-05-05 00:00:00 No 150 Joaquin [facility] Armodafinil (Nuvigil) 150 Mg Tablet, 150 Mg Oral Armod afinil (Nuvigil) 150 Mg Tablet, 150 Mg Oral 2015-05-05 00:00:00 No 150 [facility] Fluconazole (Diflucan) 100 Mg Tablet, 100 Mg Oral Fluc onazole (Diflucan) 100 Mg Tablet, 100 Mg Oral 2015-05-05 00:00:00 No 100 Joaquin y [facility] Lactaid , Oral Lactaid , Oral 2015-05-05 00:00:00 No As Needed [facility] Levofloxacin (Levaquin) 500 Mg Tablet, 500 Mg Oral Lev ofloxacin (Levaquin) 500 Mg Tablet, 500 Mg Oral 2015-05-05 00:00:00 No 500 D aily [facility] Nasacort , Nasacort , 2015-05-05 00:00:00 No Daniela ly [facility] Omeprazole/Sodium Bicarbonate (Zegerid 4 0 Mg Capsule) 1 Each Capsule, 40 Mg Oral Omeprazole/Sodium Bicarbonate (Zegerid 4 0 Mg Capsule) 1 Each Capsule, 40 Mg Oral 2015-05-05 00:00:00 No 40 Twice A Day [facility] Omeprazole/Sodium Bicarbonate (Zegerid 4 0 Mg Capsule) 1 Each Capsule, 40 Mg Oral Omeprazole/Sodium Bicarbonate (Zegerid 4 0 Mg Capsule) 1 Each Capsule, 40 Mg Oral 2015-05-05 00:00:00 No 40 [facility] Tums , Oral Tums , Oral 2015-05-05 00:00:00 No As Needed [facility] Zyrtec , Oral Zyrtec , Oral 2015-05-05 00:00:00 No Daily [facility] Benicar , Benicar , 2014-09-28 00:00:00 No [facility] Ciprofloxacin/Ciprofloxa Hcl (Cipro Xr 5 00 Mg Tablet) 500 Mg Tbmp.24hr, Mg Oral Ciprofloxacin/Ciprofloxa Hcl (Cipro Xr 5 00 Mg Tablet) 500 Mg Tbmp.24hr, Mg Oral 2014-09-28 00:00:00 No Daily [facility] Flucananzole , 100 Mg Oral Flucananzole , 100 Mg Oral 2014 00:00:00 No 100 Daily [facility] Ramila , Ramila , 2014-09-28 00:00:00 No [facility] Zertec , Zertec , 2014-09-28 00:00:00 No [facility] Alprazolam (Xanax Xr) 1 Mg Tab.er.24h, 3 Mg Oral Alpra zolam (Xanax Xr) 1 Mg Tab.er.24h, 3 Mg Oral 2014-08-28 00:00:00 No 3 As Needed [facility] Aspirin (Aspir 81) 81 Mg Tablet., 81 Mg Oral Aspirin (Aspir 81) 81 Mg Tablet., 81 Mg Oral 2014-08-26 00:00:00 No 81 Da junaid [facility] Clonidine Hcl 0.2 Mg Tablet, 0.2 Mg Oral Clonidine Hcl 0.2 Mg Tablet, 0.2 Mg Oral 2014-08-26 00:00:00 No .2 As Needed [facility] Fluticasone/Salmeterol (Advair 100-50 Diskus) 1 Each D isk.w.dev, 1 Inhalation Fluticasone/Salmeterol (Advair 100-50 Diskus) 1 Each Disk.w.dev, 1 Inhalation 2014-08-26 00:00:00 No 1 As Needed [facility] Fluticasone/Salmeterol (Advair 100-50 Diskus) 1 Each D isk.w.dev, 1 Inh Route Fluticasone/Salmeterol (Advair 100-50 Diskus) 1 Each Disk.w.dev, 1 Inh Route 2014-08-26 00:00:00 No 1 Twice A Day [facility] Meloxicam 7.5 Mg Tablet, 7.5 Mg Oral Meloxicam 7.5 Mg Tablet, 7. 5 Mg Oral 2014-08-26 00:00:00 No 7.5 Twice A Day [facility] Tramadol Hcl (Rybix Odt) 50 Mg Tab.rapdis, 50 Mg Oral Tramadol Hcl (Rybix Odt) 50 Mg Tab.rapdis, 50 Mg Oral 2014-08-26 00:00:00 No 50 As Needed [facility] Chlorzoxazone (Parafon Forte Dsc) 500 Mg Tablet, 500 M g Oral Chlorzoxazone (Parafon Forte Dsc) 500 Mg Tablet, 500 Mg Oral 2013-03-01 00:00:00 No 500 Daily [facility] Procedures Procedure Date / Time Performed Performing Clinician [facility] e Ultrasound guidance for vascular access 2019-05-28 00:00:00 PAPO MARY [facility] Creation of arteriovenous fistula 2019-05-26 00:00:00 LET[employer]OU, [employer] [facility] CT of abdomen and pelvis without contrast 2019-05-25 00:00:00 MARY ELLEN VELIZ [facility] Creation of arteriovenous fistula 2019-05-20 00:00:00 [employer]OU [employer] [facility] Echo guide for biopsy 2019-05-16 00:00:[address] [facility] Ultrasound, renal 2019-02-11 00:00:00 AN POWELL [facility] X-ray of chest, two views 2019-02-11 00:00:00 AN POWELL [facility] AV FUSION DIRECT ANY SITE 2019-01-13 00:00:00 DALIA BRASWELL [facility] EGD BIOPSY SINGLE/MULTIPLE 2019-01-07 00:00:00 XOCHITL LOPEZ [facility] COLONOSCOPY AND BIOPSY 2019-01-07 00:00:00 XOCHITL LOPEZ [facility] COLONOSCOPY W/LESION REMOVAL 2019-01-07 00:00:00 XOCHITL LOPEZ [facility] COLONOSCOPY W/LESION REMOVAL 2019-01-07 00:00:00 XOCHITL LOPEZ [facility] X-ray of chest, two views 2019-01-06 00:00:00 DALIA BRASWELL [facility] CORONARY ARTERY ANGIO S&I 2018-12-14 00:00:[address] [facility] X-ray of chest, two views 2018-09-21 00:00:00 PRISCILLA ARRINGTON [facility] CT of abdomen and pelvis without contrast 2018-09-20 00:00:00 AN BETANCOURT [facility] Encounters Start Date/Time End Date/Time En[facility] Encounter ID Source 2019-05-13 22:25:00 2019-06-01 20:14:00 Discharged Inpatient [address] [facility] [id number] [facility] 2019-02-11 08:52:00 2019-02-11 08:52:00 Registered Clinic [address] [facility] [id number] [facility] 2019-01-13 11:31:00 2019-01-13 11:31:00 Registered Surgical Day Car e [address] [facility] [id number] [facility] 2019-01-07 06:16:00 2019-01-07 06:16:00 Registered Surgical Day Car e [address] [facility] [id number] [facility] 2018-12-14 06:26:00 2018-12-14 06:26:00 Registered Surgical Day Care [facility] [id number] [facility] Patients [facility] 2018-11-09 16:41:00 2018-11-09 18:41:[address] [facility] [id number] [facility] Patients [facility] 2018-09-20 16:13:00 2018-09-20 16:13:00 Registered Clinic [address] [facility] [id number] [facility]. [facility] - Patients [facility] 2018-05-23 20:43:00 2018-05-31 19:04:00 Discharged Inpatient [address] [facility] [id number] [facility] 2018-03-03 16:41:00 2018-03-22 20:24:00 Discharged Inpatient [address] [facility] [id number] [facility] 2018-01-25 22:11:00 2018-01-26 03:06:00 Departed Emergency Room [address] [facility] [id number] [facility] 2017-11-11 08:51:00 2017-11-11 08:51:[address] [facility] [id number] [facility] 2017-11-04 09:07:00 2017-11-04 09:07:[address] [facility] [id number] [facility] 2017-07-19 13:40:00 2017-07-24 18:29:00 Discharged Inpatient ER KYLEE ACOSTA [facility] [id number] [facility] 2017-07-09 16:40:00 2017-07-18 14:58:00 Discharged Inpatient ER KYLEE ACOSTA [facility] [id number] [facility] 2016-12-22 17:14:00 2016-12-24 16:25:00 Discharged Inpatient ER KYLEE ACOSTA [facility] [id number] [facility] Results Test Description Test Time Test Comments Results Result Comments Source Differential Total Cells Counted 2019-06-01 09:32:00 Test Item Differential Total Cells Counted (test code = Dhaval sinclair Total Cells Counted) 100 [facility] (Manual)2019-06-01 09:32:00 * Test Item Value Reference Range Interpretation Comments Neutrophils % (Manual) (test code = 74280-7) 85 40-74 H [facility] HospitalLymphocytes % (Manual)2019-06-01 09:32:00 * Test Item Value Reference Range Interpretation Comments Lymphocytes % (Manual) (test code = 737-7) 11 19-48 L [facility] HospitalMonocytes % (Manual)2019-06-01 09:32:00* Test Item Value Reference Range Interpretation Comments Monocytes % (Manual) (test code = 744-3) 3 3.4-9.0 L [facility] HospitalEosinophils % (Manual)2019-06-01 09:32:00 * Test Item Value Reference Range Interpretation Comments Eosinophils % (Manual) (test code = 714-6) 1 0-7 [facility] HospitalPlatelet Fqypmxns4472-12-34 09:32:00* Test Item Value Reference Range Interpretation Comments Platelet Estimate (test code = 01350-0) ADEQUATE [facility] HospitalPlatelet Morphology Hnuixzy5849-97-10 09:32:00* Test Item Value Reference Range Interpretation Comments Platelet Morphology Comment (test code = 95668-6) NORMAL [facility] HospitalPoikilocytosis2020-03-11 09:32:00* Test Item Value Reference Range Interpretation Comments Poikilocytosis (test code = 779-9) SLIGHT [facility] HospitalAnisocytosis2020-03-11 09:32:00* Test Item Value Reference Range Interpretation Comments Anisocytosis (test code = 702-1) SLIGHT [facility] HospitalRed Cell Morphology Flltpzi7345-12-08 09:32:00* Test Item Value Reference Range Interpretation Comments Red Cell Morphology Comment (test code = 6742-1) [facility]ORMAL [facility] Kbbbl2186-41-03 06:30:00* Test Item Value Reference Range Interpretation Comments Sodium Level (test code = 2951-2) 135 136-145 L [facility] HospitalPotassium Kjphb3995-32-37 06:30:00* Test Item Value Reference Range Interpretation Comments Potassium Level (test code = 2823-3) 3.9 3.5-5.1 [facility] HospitalChloride Sdajv8197-22-52 06:30:00* Test Item Value Reference Range Interpretation Comments Chloride Level (test code = 2075-0) 101 98-107 [facility] HospitalCarbon Dioxide Iuslv8255-27-86 06:30:00* Test Item Value Reference Range Interpretation Comments Carbon Dioxide Level (test code = 2028-9) 27 22-29 [facility] HospitalAnion Uxb2888-75-12 06:30:00* Test Item Value Reference Range Interpretation Comments Anion Gap (test code = 55325-1) 10.9 8-16 [facility] HospitalBlood Urea Gpsvwklb2485-47-12 06:30:00* Test Item Value Reference Range Interpretation Comments Blood Urea Nitrogen (test code = 3094-0) 20 7-26 [facility] HospitalCreatinine2020-03-11 06:30:00* Test Item Value Reference Range Interpretation Comments Creatinine (test code = 2160-0) 5.23 0.57-1.11 H [facility] HospitalBUN/Creatinine Gtsbl2754-54-33 06:30:00* Test Item Value Reference Range Interpretation Comments BUN/Creatinine Ratio (test code = 3097-3) 4 6-25 L [facility] HospitalEstimat Glomerular Filtration Rate 2019-06-01 06:30:00* Test Item Value Reference Range Interpretation Comments Estimat Glomerular Filtration Rate (test code = 296851083) 8 >60 L Ranges were taken from the National Kidney Disease Education Program and the [facility] literature.Reference ranges:60 or greater: Bgkvsd18-91 ( for 3 consecutive months): Chronic kidney disease 15 or less: Kidney failureHouston Methodist Willow[facility] HospitalGlucose Xongm5766-81-99 06:30:00* Test Item Value Reference Range Interpretation Comments Glucose Level (test code = KMY8535) 105 74-118 [facility] HospitalCalcium Ibvbb5400-49-35 06:30:00* Test Item Value Reference Range Interpretation Comments Calcium Level (test code = 18103-6) 8.8 8.4-10.2 [facility] HospitalMagnesium Rfiwd0867-36-39 06:30:00* Test Item Value Reference Range Interpretation Comments Magnesium Level (test code = 92119-4) 1.8 1.3-2.1 [facility] HospitalTotal Udcbsqgbw6406-00-61 06:30:00* Test Item Value Reference Range Interpretation Comments Total Bilirubin (test code = 1975-2) 1.3 0.2-1.2 H [facility] HospitalAspartate Amino Transf (AST/SGOT) 2019-06-01 06:30:00* Test Item Value Reference Range Interpretation Comments Aspartate Amino Transf (AST/SGOT) (test code = Aspartate Amino Transf (AST/SGOT)) 96 5-34 H [facility] HospitalAlanine Aminotransferase (ALT/SGPT) 2019-06-01 06:30:00* Test Item Value Reference Range Interpretation Comments Alanine Aminotransferase (ALT/SGPT) (test code = 1742-6) 21 0-55 [facility] HospitalTotal Lxsvnbk4783-21-57 06:30:00* Test Item Value Reference Range Interpretation Comments Total Protein (test code = 2885-2) 6.1 6.5-8.1 L [facility] HospitalAlbumin2020-03-11 06:30:00* Test Item Value Reference Range Interpretation Comments Albumin (test code = 1751-7) 2.3 3.5-5.0 L [facility] HospitalGlobulin2020-03-11 06:30:00* Test Item Value Reference Range Interpretation Comments Globulin (test code = 63541-3) 3.8 2.3-3.5 H [facility] HospitalAlbumin/Globulin Bebxe7058-86-80 06:30:00 * Test Item Value Reference Range Interpretation Comments Albumin/Globulin Ratio (test code = 1759-0) 0.6 0.8-2.0 L [facility] HospitalAlkaline Qpchfdiqfuu7763-25-87 06:30:00* Test Item Value Reference Range Interpretation Comments Alkaline Phosphatase (test code = 6768-6) 864 40-150 H [facility] HospitalWhite Blood Rrekl4151-92-87 06:04:00* Test Item Value Reference Range Interpretation Comments White Blood Count (test code = 6690-2) 20.09 4.8-10.8 H [facility] HospitalRed Blood Mpvch4681-47-87 06:04:00* Test Item Value Reference Range Interpretation Comments Red Blood Count (test code = 789-8) 4.14 3.6-5.1 [facility] HospitalHemoglobin2020-03-11 06:04:00* Test Item Value Reference Range Interpretation Comments Hemoglobin (test code = 88839-8) 12.1 12.0-16.0 [facility] HospitalHematocrit2020-03-11 06:04:00* Test Item Value Reference Range Interpretation Comments Hematocrit (test code = 4544-3) 37.3 34.2-44.1 [facility] HospitalMean Corpuscular Xcnsqm6164-95-30 06:04:00* Test Item Value Reference Range Interpretation Comments Mean Corpuscular Volume (test code = 787-2) 90.1 81-99 [facility] HospitalMean Corpuscular Ukuyvmuieg9207-65-68 06:04:00* Test Item Value Reference Range Interpretation Comments Mean Corpuscular Hemoglobin (test code = 785-6) 29.2 28-32 [facility] HospitalMean Corpuscular Hemoglobin Concent 2019-06-01 06:04:00* Test Item Value Reference Range Interpretation Comments Mean Corpuscular Hemoglobin Concent (test code = 786-4) 32.4 31-35 [facility] HospitalRed Cell Distribution Xmzrx1888-67-67 06:04:00* Test Item Value Reference Range Interpretation Comments Red Cell Distribution Width (test code = 14953-7) 16.9 11.7 -14.4 H [facility] HospitalPlatelet Qscll0127-74-46 06:04:00* Test Item Value Reference Range Interpretation Comments Platelet Count (test code = 777-3) 331 140-360 [facility] HospitalNeutrophils (%) (Auto)2019-06-01 06:04:00 * Test Item Value Reference Range Interpretation Comments Neutrophils (%) (Auto) (test code = 24979-8) 76.7 38.7-80.0 [facility] HospitalLymphocytes (%) (Auto)2019-06-01 06:04:00 * Test Item Value Reference Range Interpretation Comments Lymphocytes (%) (Auto) (test code = 736-9) 10.1 18.0-39.1 L [facility] HospitalMonocytes (%) (Auto)2019-06-01 06:04:00* Test Item Value Reference Range Interpretation Comments Monocytes (%) (Auto) (test code = 5905-5) 9.4 4.4-11.3 [facility] HospitalEosinophils (%) (Auto)2019-06-01 06:04:00 * Test Item Value Reference Range Interpretation Comments Eosinophils (%) (Auto) (test code = 713-8) 2.2 0.0-6.0 [facility] HospitalBasophils (%) (Auto)2019-06-01 06:04:00* Test Item Value Reference Range Interpretation Comments Basophils (%) (Auto) (test code = 706-2) 0.5 0.0-1.0 [facility] HospitalIM GRANULOCYTES %2019-06-01 06:04:00* Test Item Value Reference Range Interpretation Comments IM GRANULOCYTES % (test code = IM GRANULOCYTES %) 1.1 0.0- 1.0 H [facility] HospitalNeutrophils # (Auto)2019-06-01 06:04:00* Test Item Value Reference Range Interpretation Comments Neutrophils # (Auto) (test code = 751-8) 15.4 2.1-6.9 H [facility] HospitalLymphocytes # (Auto)2019-06-01 06:04:00* Test Item Value Reference Range Interpretation Comments Lymphocytes # (Auto) (test code = 28840-9) 2.0 1.0-3.2 [facility] HospitalMonocytes # (Auto)2019-06-01 06:04:00* Test Item Value Reference Range Interpretation Comments Monocytes # (Auto) (test code = 742-7) 1.9 0.2-0.8 H [facility] HospitalEosinophils # (Auto)2019-06-01 06:04:00* Test Item Value Reference Range Interpretation Comments Eosinophils # (Auto) (test code = 711-2) 0.5 0.0-0.4 H [facility] HospitalBasophils # (Auto)2019-06-01 06:04:00* Test Item Value Reference Range Interpretation Comments Basophils # (Auto) (test code = 704-7) 0.1 0.0-0.1 [facility] HospitalAbsolute Immature Granulocyte (auto 2019-06-01 06:04:00* Test Item Value Reference Range Interpretation Comments Absolute Immature Granulocyte (auto (ortega t code = Absolute Immature Granulocyte (auto) 0.23 0-0.1 H [facility] HospitalTUNNELLED CVC INSERT W/O OJST4841-35-04 15:05:00 [place] [address] Patient Name: GABBIE TOBIN MR #: [id number] : 1955 Age/Sex: 63/F Req #: [id number] Adm Physician: KYLEE ACOSTA MD Ordered by: USMAN MARIE, PAPO MARIE Report #: [id number] Location: [facility] Room/Bed: [place] [address] Procedure: [id number] IR/TUNNELLED CVC INSERT W/O PORT Exam Date: Exam T ervin: REPORT STATUS: Signed Tunn eled dialysis catheter exchange. Histo ry: Renal failure, malfunctioning indwelling left IJ TTC. Modality: Sonography and fluoroscopy. Sedation: Versed 1.5 mg and fentanyl 75 mcg was given intravenously for conscious sedation. Vital signs were monitored throughout the procedure by a nurse, and remained stable. Physician intra-service time was 20. Hydraulic Tester: MD Larry. Beach Expert: None. Approach: Via indwe lling left IJ tunnel dialysis catheter. Estimate d blood loss: < 5 cc. Specimen: None. Fluoroscopy Time: 0.9 min. Dose (Ka,r): 9.18 mGy. Technique: Informed written consent was obtained. Discussion of risks, benefits, and alternatives were made with the patient. The patient expressed understanding and agreed to proceed. All elements maximal sterile barrier technique was utilized for this procedure, including utilization of sterile scrub solution for skin prep, a large sterile sheet to cover the areas of the patient that were not prepped, and hand hygiene, mask, head covering, and sterile gown for performing radiologist and scrub technologist. Initial felled seam operator images demonstrate indwelling left IJ tunnel dialysis catheter tip terminating within the proximal SVC. 1% lidocaine was used for local anesthesia. A 0.035 Amplatz wire was advanced through the indwelling catheter into the IVC. The existing catheter was removed over wire. A new 14.5 Tuvaluan 28 cm tip the cuff catheter was then advanced over wire with distal tip terminating within the superior right atrium. The lumens easily flushed/aspirated post exchange. The lumens were locked with heparin. The catheter was fixed to the skin with 2-0 Prolene. A reasonable pursestring suture was placed at the catheter exit site. A sterile dressing was applied. The patient tolerated the procedure without immediate complication. Impression: Successful left IJ tunnel dialysis catheter exchange/reposition with catheter tip now terminating within the superior right atrium. The lumens demonstrated brisk flow post exchange. Can remove temporary right IJ catheter after successful dialysis completed through the new tunneled catheter. Signed by: Dr. Art Juarez MD on 05/31/2019 3:10 PM Dictated By: ART JUAREZ MD 09 Transcribed By: ALEXIA on 05/31/191509 COPY TO: PAPO MARY Bedside Glucose 2019-05-30 16:22:00* Test Item Value Reference Range Interpretation Comments Bedside Glucose (test code = 31090-3) 88 70-120 Meter ID: [id number] [facility] HospitalUrine Culture 2019-05-30 07:07:00* Test Item Value Reference Range Interpretation Comments Urine Culture (test code = 630-4) No Result Data Provided [facility] HospitalPhosphorus Avqzp2474-36-88 06:16:00* Test Item Value Reference Range Interpretation Comments Phosphorus Level (test code = HRN1493) 3.2 2.3-4.7 [facility] HospitalProthrombin Nuxb6541-17-75 06:12:00* Test Item Value Reference Range Interpretation Comments Prothrombin Time (test code = 5902-2) 12.7 11.9-14.5 [facility] HospitalProthromb Time International Ratio 2019-05-30 06:12:00* Test Item Value Reference Range Interpretation Comments Prothromb Time International Ratio (test code = 6301-6) 0.90 Oral Anticoagulant Therapy INR Values:1. Low Intensity Therapy 1.5 - 2.02 . Moderate Intensity Therapy 2.0 - 3.03. High Intensity Therapy(1) 2.5 - 3. 54. High Intensity Therapy(2) 3.0 - 4.05. Panic Value INR > 5.0 [facility] HospitalActivated Partial Thromboplast Time 2019-05-30 06:12:00* Test Item Value Reference Range Interpretation Comments Activated Partial Thromboplast Time (test code = 55430-1) 36.0 23.8-35.5 H [facility] HospitalCHEST SINGLE (PORTABLE)2019-05-29 10:13:00 [place] [address] Patient Name: GABBIE TOBIN MR #: [id number] : 1955 Age/Sex: 63/F Req #: [id number] Adm Physician: KYLEE ACOSTA MD Ordered by: BHAVESH ABBASI MD Report #: [id number] Location: ICU Room/Bed: ICU 193 Procedure: [id number] DX /CHEST SINGLE (PORTABLE) Exam Date: 05/29/19 Exam Ti me: 0510 REPORT STATUS: Signed E XAMINATION: CHEST SINGLE (PORTABLE) INDICATION: CHF. COMPARISON: Chest radiograph 05/26/2019. FINDINGS: TUBES and LINES: Left IJ galdino neled hemodialysis catheter with tip in the SVC. Right-sided chest port with c atheter tip in the SVC. Interval placement of right IJ non tunneled hemodialys is catheter which terminates near the cavoatrial junction. LUNGS: Lungs are moderately inflated. Central vascular congestion with mild interstitial op acities. PLEURA: No pleural effusion or pneumothorax. HEART AND MEDI ASTINUM: The cardiomediastinal silhouette is moderately enlarged. BONES AND SOFT TISSUES: No acute osseous lesion. Soft tissues are unremarkable. UPPER ABDOMEN: No free air under the diaphragm. IMPRESSION: Cardi omegaly with mild pulmonary interstitial edema. Lines and tubes as above. I nterval placement of right IJ non tunneled hemodialysis catheter which termina ortega near the cavoatrial junction. No evidence of pneumothorax. Signed by: Dr. Buffy Guzman MD on 05/29/2019 10:16 AM Dictated By: BUFFY GUZMAN MD Elec tronically Signed By: BUFFY GUZMAN MD on 05/29/19 1016 Transcribed By: ALEXIA on 05/29/19 1016 COPY TO: BHAVESH ABBASI MD [facility] OR [id number] 18:17:[address] [address] Patient Name: GABBIE TOBIN MR #: [id number] : 1955 Age/Sex: 63/F Req #: [id number] Adm Physician: KYLEE ACOSTA MD Ordered by: USMAN MARIE, PAPO MARIE Report #: [id number] Location: ICU Room/Bed: [place] [address] Procedure: [id number] IR/FLURO TROY C[facility] JASSON PLMT OR REM Exam Date: Exam Time: REPORT STATUS: Signed Mukul e and Time: 05/28/2019 Procedure: Right internal jugular temporary hemodialys is catheter placement mill control operator: Dr. Briceño Pre-operative shyam gnosis: End-stage renal disease Post-operative diagnosis: End-stage renal dise ase Conscious Sedation: None The patient's heart rate and pulse oximetry were continuously monitored by the ICU nurse. Blood pressure was monitored at 5 minute intervals. Additional Medications: Lidocaine 1% for local anesthe ioana Fluoroscopy time: 0.5 minutes Dose-area Product: 2.26 Gycm2. Fronta l Air Kerma: 7.01 mGy Contrast used: None Estimated blood loss: Minimal Sp ecimens: None Implants: 13 Tuvaluan 15 cm triple-lumen hi flow central venous ca theter DISCUSSION: Informed consent was obtained and documented in the medical record after discussion of risks and benefits. The patient wa s placed in the supine position on the hospital bed. Preliminary sonographic e valuation confirmed patency of the right internal jugular vein, evidenced by compressibility. The right neck was prepped and draped in the standard ster ile fashion. 1% lidocaine was infiltrated into the skin and subcutaneous tissu es for local anesthesia. Then under continuous sonographic guidance, an 18-gau ge singlewall needle was used to access the right internal jugular vein. A per manent sonographic image was stored in the medical record. A 0.0 3 5-in. wire was advanced centrally into the IVC under fluoroscopic guidance. The needle wa s removed over the wire and the tract was dilated. Then a 13 Tuvaluan 15 cmtri ple-lumen central high flow venous catheter was advanced over the wire to full depth. The wire was removed, and the catheter tip was positioned at the super ior cavoatrial junction. Each lumen showed adequate bidirectional flow and was flushed with sterile saline. The catheter was secured to the skin with mon ofilament nylon suture and a sterile dressing was applied. The patient tolerat ed the procedure well without immediate complication. FINDINGS: Patent right internal jugular vein IMPRESSION: Successful placement of a 13 Tuvaluan, 15 cm triple-lumen hi flow central venous catheter by a right internal jugular approach under sonographic and fluoroscopic guidance. Signed by: Dr. Edith Briceño M.D. on 05/28/2019 6:20 PM Dictated By: EDITH BRICEÑO MD 19 Transcribed By: ALEXIA on 05/28/191819 COPY TO: PAPO MARY NON-TUNNELLED CVC CATH [id number] 18:17:00 [place] [address] Patient Name: GABBIE TOBIN MR #: [id number] : 1955 Age/Sex: 63/F Req #: [id number] Adm Physician: KYLEE ACOSTA MD Ordered by: PAPO MARY MD, MD Report #: [id number] Location: ICU Room/Bed: ICU 193 Procedure: [id number] IR/NON-TUNNELLED CVC CATH PLACMNT Exam Date: Exam Time: REPORT STATUS: Signed Mukul e and Time: 05/28/2019 Procedure: Right internal jugular temporary hemodialys is catheter placement mill control operator: Dr. Briceño Pre-operative shyam gnosis: End-stage renal disease Post-operative diagnosis: End-stage renal dise ase Conscious Sedation: None The patient's heart rate and pulse oximetry were continuously monitored by the ICU nurse. Blood pressure was monitored at 5 minute intervals. Additional Medications: Lidocaine 1% for local anesthe ioana Fluoroscopy time: 0.5 minutes Dose-area Product: 2.26 Gycm2. Fronta l Air Kerma: 7.01 mGy Contrast used: None Estimated blood loss: Minimal Sp ecimens: None Implants: 13 Tuvaluan 15 cm triple-lumen hi flow central venous ca theter DISCUSSION: Informed consent was obtained and documented in the medical record after discussion of risks and benefits. The patient wa s placed in the supine position on the hospital bed. Preliminary sonographic e valuation confirmed patency of the right internal jugular vein, evidenced by compressibility. The right neck was prepped and draped in the standard ster ile fashion. 1% lidocaine was infiltrated into the skin and subcutaneous tissu es for local anesthesia. Then under continuous sonographic guidance, an 18-gau [email or web address] singlewall needle was used to access the right internal jugular vein. A per manent sonographic image was stored in the medical record. A 0.0 3 5-in. wire was advanced centrally into the IVC under fluoroscopic guidance. The needle wa s removed over the wire and the tract was dilated. Then a 13 Tuvaluan 15 cmtri ple-lumen central high flow venous catheter was advanced over the wire to full depth. The wire was removed, and the catheter tip was positioned at the super ior cavoatrial junction. Each lumen showed adequate bidirectional flow and was flushed with sterile saline. The catheter was secured to the skin with mon ofilament nylon suture and a sterile dressing was applied. The patient tolerat ed the procedure well without immediate complication. FINDINGS: Patent right internal jugular vein IMPRESSION: Successful placement of a 13 Tuvaluan, 15 cm triple-lumen hi flow central venous catheter by a right internal jugular approach under sonographic and fluoroscopic guidance. Signed by: Dr. Edith Briceño M.D. on 05/28/2019 6:20 PM Dictated By: EDITH BRICEÑO MD 19 Transcribed By: ALEXIA on 05/28/191819 COPY TO: PAPO MARY IR CONSULT 2019-05-28 18:17:00 [place] [address] Patient Name: GABBIE TOBNI MR #: [id number] : 1955 Age/Sex: 63/F Req #: [id number] Adm Physician: KYLEE ACOSTA MD Ordered by: USMAN MARIE, PAPO MARIE Report #: [id number] Location: ICU Room/Bed: ICU [facility] Procedure: [id number] DX/IR CONSULT Exam Date: Exam Time: REPORT STATUS: Signed Date and Time: 05/28/2019 Procedure: Right internal jugular temporary hemodialysis catheter placement mill control operator: Dr. Briceño Pre-operative diagnosis: End-stage renal disease Post-operative diagnosis: End-stage renal disease Conscious S edation: None The patient's heart rate and pulse oximetry were continuously mo nitored by the ICU nurse. Blood pressure was monitored at 5 minute intervals. Additional Medications: Lidocaine 1% for local anesthesia Fluoroscopy ti me: 0.5 minutes Dose-area Product: 2.26 Gycm2. Frontal Air Kerma: 7.01 mG y Contrast used: None Estimated blood loss: Minimal Specimens: None Impl ants: 13 Tuvaluan 15 cm triple-lumen hi flow central venous catheter DISCU SSION: Informed consent was obtained and documented in the medical record a fter discussion of risks and benefits. The patient was placed in the supi ne position on the hospital bed. Preliminary sonographic evaluation confirmed patency of the right internal jugular vein, evidenced by compressibility. The right neck was prepped and draped in the standard sterile fashion. 1% li docaine was infiltrated into the skin and subcutaneous tissues for local anest hesia. Then under continuous sonographic guidance, an 18-gauge singlewall need le was used to access the right internal jugular vein. A permanent sonographic image was stored in the medical record. A 0.0 3 5-in. wire was advanced centr ally into the IVC under fluoroscopic guidance. The needle was removed over the wire and the tract was dilated. Then a 13 Tuvaluan 15 cmtriple-lumen central hi gh flow venous catheter was advanced over the wire to full depth. The wire was removed, and the catheter tip was positioned at the superior cavoatrial junct ion. Each lumen showed adequate bidirectional flow and was flushed with steril e saline. The catheter was secured to the skin with monofilament nylon sutu re and a sterile dressing was applied. The patient tolerated the procedure wel l without immediate complication. FINDINGS: Patent right internal jugu lar vein IMPRESSION: Successful placement of a 13 Tuvaluan, 15 cm triple -lumen hi flow central venous catheter by a right internal jugular approach un kalia sonographic and fluoroscopic guidance. Signed by: Dr. Edith Briceño M.D. on 05/28/2019 6:20 PM Dictated By: EDITH BRICEÑO MD Electronically Si gned By: EDITH BRICEÑO MD on 05/28/191819 Transcribed By: ALEXIA on 05/28/191819 COPY TO: [facility] GUIDANCE FOR VASCULAR ACCES 2019-05-28 18:17:00 [place] [address] Patient Name: GABBIE TOBIN MR #: [id number] : 1955 Age/Sex: 63/F Req #: [id number] Adm Physician: KYLEE ACOSTA MD Ordered by: USMAN MARIE, PAPO MARIE Report #: [id number] Location: ICU Room/Bed: ICU 193 Procedure: [id number] US/US GUIDANCE FOR VASCULAR ACCES Exam Date: Exam Time: REPORT STATUS: Signed Mukul e and Time: 05/28/2019 Procedure: Right internal jugular temporary hemodialys is catheter placement mill control operator: Dr. Briceño Pre-operative shyam gnosis: End-stage renal disease Post-operative diagnosis: End-stage renal dise ase Conscious Sedation: None The patient's heart rate and pulse oximetry were continuously monitored by the ICU nurse. Blood pressure was monitored at 5 minute intervals. Additional Medications: Lidocaine 1% for local anesthe ioana Fluoroscopy time: 0.5 minutes Dose-area Product: 2.26 Gycm2. Fronta l Air Kerma: 7.01 mGy Contrast used: None Estimated blood loss: Minimal Sp ecimens: None Implants: 13 Tuvaluan 15 cm triple-lumen hi flow central venous ca theter DISCUSSION: Informed consent was obtained and documented in the medical record after discussion of risks and benefits. The patient wa s placed in the supine position on the hospital bed. Preliminary sonographic e valuation confirmed patency of the right internal jugular vein, evidenced by compressibility. The right neck was prepped and draped in the standard ster ile fashion. 1% lidocaine was infiltrated into the skin and subcutaneous tissu es for local anesthesia. Then under continuous sonographic guidance, an 18-gau ge singlewall needle was used to access the right internal jugular vein. A per manent sonographic image was stored in the medical record. A 0.0 3 5-in. wire was advanced centrally into the IVC under fluoroscopic guidance. The needle wa s removed over the wire and the tract was dilated. Then a 13 Tuvaluan 15 cmtri ple-lumen central high flow venous catheter was advanced over the wire to full depth. The wire was removed, and the catheter tip was positioned at the super ior cavoatrial junction. Each lumen showed adequate bidirectional flow and was flushed with sterile saline. The catheter was secured to the skin with mon ofilament nylon suture and a sterile dressing was applied. The patient tolerat ed the procedure well without immediate complication. FINDINGS: Patent right internal jugular vein IMPRESSION: Successful placement of a 13 Tuvaluan, 15 cm triple-lumen hi flow central venous catheter by a right internal jugular approach under sonographic and fluoroscopic guidance. Signed by: Dr. Edith Briceño M.D. on 05/28/2019 6:20 PM Dictated By: EDITH BRICEÑO MD 19 Transcribed By: ALEXIA on 05/28/191819 COPY TO: [facility] CHEST SINGLE (PORTABLE)2019-05-26 18:53:00 [place] [address] Patient Name: GABBIE TOBIN MR #: [id number] : 1955 Age/Sex: 63/F Req #: [id number] Adm Physician: KYLEE ACOSTA MD Ordered by: PAPO MARY MD, MD Report #: [id number] Location: ICU Room/Bed: ICU [facility] access hospital Procedure: [id number] DX/CHEST SINGLE (PORTABLE) Exam Date: 05/26/19 Exam Time: 1700 REPORT STATUS: Signed EXAMINATION: CHEST SINGLE (PORTABLE) INDICATION: SOB COMPARISON: 05/23/2019 FINDINGS: AP view TUBES and LINES: Left internal jugular tunneled hemodialysis catheter and right IJ chest port are appropriat raquel positioned. . LUNGS: Lungs are well inflated. There is mild prominenc e of the central pulmonary vasculature, consistent with pulmonary venous conge stion, unchanged. There is linear left basilar atelectasis. PLEURA: No pleural effusion or pneumothorax. HEART AND MEDIASTINUM: Cardiac size is m oderately enlarged, unchanged. BONES AND SOFT TISSUES: No acute osseou s lesion. Soft tissues are unremarkable. UPPER ABDOMEN: No free air unde r the diaphragm. IMPRESSION: No significant interval change. Signed by: Gorge Carmona MD on 05/26/2019 6:55 PM Dictated By: GORGE CARMONA MD 54 Transcribed By: ALEXIA on 05/26/191854 COPY TO: [facility] Creatine Kinase [id number] 16:32:00* Test Item Value Reference Range Interpretation Comments Creatine Kinase MB (test code = 06915-9) 1.30 0-5.0 [facility] [id number] 16:32:00* Test Item Value Reference Range Interpretation Comments Troponin I (test code = ARR9265) 0.239 0-0.300 [facility] [id number] 16:16:00* Test Item Value Reference Range Interpretation Comments Creatine Kinase (test code = 2157-6) 11 29-168 L [facility] T[facility] A & B 2019-05-26 15:12:00* Test Item Value Reference Range Interpretation Comments Clostridium Difficile Toxin A & B (test code = 912249221) NEGATIVE NEGATIVE Testing on stool aspirate specimens is outside electrical instrument repairer claims since specime n type not validated on this assay.[facility]/PELVIS [id number] 15:21:00 [place] [address] Patient Name: GABBIE TOBIN MR #: [id number] : 1955 Age/Sex: 63/F Req #: [id number] Adm Physician: KYLEE ACOSTA MD Ordered by: MARY ELLEN ALCARAZ MD Report #: [id number] Location: ICU Room/Bed: ICU [facility] access hospital Procedure: [id number] C T/CT ABDOMEN/PELVIS WO Exam Date: 05/25/19 Exam Time : 1509 REPORT STATUS: Signed EXA M: CT Abdomen and Pelvis WITHOUT intravenous contrast INDICATION: Shortne ss of breath, abdominal pain, colitis COMPARISON: CT abdomen and pelvis of 09/20/2018 TECHNIQUE: Abdomen and pelvis were scanned utilizing a multidetect or helical scanner from the lung base to the pubic symphysis without administr ation of IV contrast. Coronal and sagittal reformations were obtained. IV CONTRAST: None ORAL CONTRAST: Gastrografin COMPLICATIO NS: None RADIATION DOSE: Total DLP: 927 mGy*cm Dose modulation, ite rative reconstruction, and/or weight based adjustment of the mA/kV was utilize d to reduce the radiation dose to as low as reasonably achievable. FINDI NGS: LOWER THORAX: Unchanged partially calcified 1.5 cm left lower lobe pulmon vida nodule. Bibasilar dependent subsegmental atelectasis. Diffuse atherosclero tic coronary artery calcifications. HEPATOBILIARY: No focal liver lesion. No biliary ductal dilation. Status post cholecystectomy. Diffuse hepatic stea tosis. SPLEEN: Absent. PANCREAS: No focal masses or ductal dilatation. ADRENALS: No adrenal nodules. KIDNEYS/URETERS: Status post right nephrec adriel. No left hydronephrosis or renal calculus. 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 PELVIC ORGANS/BLADDER: Hysterectomy. PER ITONEUM / RETROPERITONEUM: No free air or fluid. LYMPH NODES: No lymphadenopat hy. VESSELS: Moderate atherosclerotic calcifications of the nonaneurysmal abdo sebastian aorta and major branches. GI TRACT: Rectal tube in place. Fluid in the colon. No abnormal bowel thickening. The stomach is filled with fluid and contrast material. No bowel obstruction. BONES AND SOFT TISSUES: No acute osseous injury. Bilateral gluteal injection granulomas. IMPRESSION: No acute findings in the abdomen or pelvis. 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 SINGLE (PORTABLE)2019-05-23 14:47:00 [place] [address] Patient Name: GABBIE TOBIN MR #: [id number] : 1955 Age/Sex: 63/F Req #: [id number] Adm Physician: KYLEE ACOSTA MD Ordered by: KYLEE ACOSTA MD Report #: [id number] Location: MED/SURG Room/Bed: [facility] Procedure: [id number] D X/CHEST SINGLE (PORTABLE) Exam Date: 05/23/19 Exam T ervin: 1415 REPORT STATUS: Signed Chest, portable AP view History: Respiratory failure Comparison: 2019 IMPRESSION: The heart is mildly enlarged, stable. Left internal j ugular tunneled hemodialysis catheter and right IJ chest port are appropriatel y positioned. There is mild interstitial edema. Bibasilar atelectasis is prese nt. No focal consolidation, pleural effusion, or pneumothorax. Signed by: Yayo Matute MD on 05/23/2019 2:48 PM Dictated By: YAYO MATUTE MD 47 Transcribed By: ALEXIA on 05/23/191447 COPY TO: KYLEE ACOSTA MD MOD SEDATE ADD 15 MIN>[id number] 11:39:00 [facility] [place] [address] Patient Name: GABBIE TOBIN MR #: [id number] : 1955 Age/Sex: 63/F Req #: [id number] [facility] Physician: KYLEE ACOSTA MD Ordered by: YAYO MATUTE MD Report #: [id number] Location: ICU Room/Bed: ICU Critical access hospital Procedure: 44 DX/MOD SEDATE ADD 15 MIN>5YRS Exam Date: 05/23/19 Exam Time: 1107 REPORT STATUS: Signed Conversion of a nontunneled to tunneled dialysis catheter, 05/23/2019. History: Renal failure. Modality: Fluoroscopy. Sedation: Versed 1.0 mg and fentanyl 50 mcg was given intravenously for conscious sedation. Vital signs were monitored throughout the procedure by a nurse, and remained stable. Physician intra-service time was 15 minutes. Hydraulic Tester: Giovani. Beach Expert: None. Approach: Left internal jugular vein Estimated blood loss: < 5 cc. Specimen: None. Fluoroscopy Time: 0.2 min. Dose (Ka,r): 2.28 mGy. Technique: Informed written consent was obtained. Discussion of risks, benefits, and alternatives were made with the patient. The patient expressed understanding and agreed to proceed. All elements maximal sterile barrier technique was utilized for this procedure, including utilization of sterile scrub solution for skin prep, a large sterile sheet to cover the areas of the patient that were not prepped, and hand hygiene, mask, head covering, and sterile gown for performing radiologist and scrub technologist. The skin was anesthetized with 2% lidocaine. A 0.35 inch diameter guidewire was inserted through the existing nontunneled dialysis catheter into the IVC. A subcutaneous tunnel was created in the left anterior chest wall by blunt dissection. A 23 cm 14.5 Tuvaluan cuffed dialysis catheter was brought through the tunnel. The existing nontunneled hemodialysis catheter was then removed over the guidewire. A peel-away sheath was placed in the left IJ vein and the catheter was advanced through the sheath, with its distal tip terminating in the right atrium. The peel-away sheath was removed. The ports were flushed and aspirated easily following placement. The catheter was sutured to the skin with 2-0 silk to secure its placement. The small jugular incision site was closed using resorbable suture. Vital signs were monitored throughout the procedure by a nurse, and remained stable. The patient tolerated the procedure well and left the department in the same condition. Results: Spot radiograph of the chest demonstrates the new dialysis catheter to lie in the expected position with its tip overlying the superior right atrium. Impression: Successful, uncomplicated conversion of a nontunneled left internal jugular to a tunneled dialysis catheter. Signed by: Yayo Matute MD on 05/23/2019 11:40 AM Dictated By: YAYO MATUTE MD 1124 Transcribed By: ALEXIA on 05/25/19 1124 COPY TO: YAYO MATUTE MD MOD SEDATE ADD 15 MIN >[id number] 11:39:00 [place] [address] Patient Name: GABIBE TOBIN MR #: [id number] : 1955 Age/Sex: 63/F Req #: [id number] Adm Physician: KYLEE ACOSTA MD Ordered by: YAYO MATUTE MD Report #: [id number] Location: ICU Room/Bed: ICU 193 Procedure: 030-00 43 DX/MOD SEDATE ADD 15 MIN>5YRS Exam Date: 05/23/19 Exam Time: 1046 REPORT STATUS: Signed Conversion of a nontunneled to tunneled dialysis catheter, 05/23/2019. History: Renal failure. Modality: Fluoroscopy. Sedation: Versed 1.0 mg and fentanyl 50 mcg was given intravenously for conscious sedation. Vital signs were monitored throughout the procedure by a nurse, and remained stable. Physician intra-service time was 15 minutes. Hydraulic Tester: Giovani. Beach Expert: None. Approach: Left internal jugular vein Estimated blood loss: < 5 cc. Specimen: None. Fluoroscopy Time: 0.2 min. Dose (Ka,r): 2.28 mGy. Technique: Informed written consent was obtained. Discussion of risks, benefits, and alternatives were made with the patient. The patient expressed understanding and agreed to proceed. All elements maximal sterile barrier technique was utilized for this procedure, including utilization of sterile scrub solution for skin prep, a large sterile sheet to cover the areas of the patient that were not prepped, and hand hygiene, mask, head covering, and sterile gown for performing radiologist and scrub technologist. The skin was anesthetized with 2% lidocaine. A 0.35 inch diameter guidewire was inserted through the existing nontunneled dialysis catheter into the IVC. A subcutaneous tunnel was created in the left anterior chest wall by blunt dissection. A 23 cm 14.5 Tuvaluan cuffed dialysis catheter was brought through the tunnel. The existing nontunneled hemodialysis catheter was then removed over the guidewire. A peel-away sheath was placed in the left IJ vein and the catheter was advanced through the sheath, with its distal tip terminating in the right atrium. The peel-away sheath was removed. The ports were flushed and aspirated easily following placement. The catheter was sutured to the skin with 2-0 silk to secure its placement. The small jugular incision site was closed using resorbable suture. Vital signs were monitored throughout the procedure by a nurse, and remained stable. The patient tolerated the procedure well and left the department in the same condition. Results: Spot radiograph of the chest demonstrates the new dialysis catheter to lie in the expected position with its tip overlying the superior right atrium. Impression: Successful, uncomplicated conversion of a nontunneled left internal jugular to a tunneled dialysis catheter. Signed by: Yayo Matute MD on 05/23/2019 11:40 AM Dictated By: YAYO MATUTE MD 23 Transcribed By: ALEXIA on 05/25/191123 COPY TO: YAYO MATUTE MD MOD SEDATE INITIAL >5 [id number] 11:39:00 [place] [address] Patient Name: GABBIE TOBIN MR #: [id number] : 1955 Age/Sex: 63/F Req #: [id number] Adm Physician: KYLEE ACOSTA MD Ordered by: YAYO MATUTE MD Report #: [id number] Location: ICU Room/Bed: ICU Critical access hospital Procedure: 42 DX/MOD SEDATE INITIAL >5 YRS Exam Date: 05/23/19 Exam Time: 1030 REPORT STATUS: Signed Conversion of a nontunneled to tunneled dialysis catheter, 05/23/2019. History: Renal failure. Modality: Fluoroscopy. Sedation: Versed 1.0 mg and fentanyl 50 mcg was given intravenously for conscious sedation. Vital signs were monitored throughout the procedure by a nurse, and remained stable. Physician intra-service time was 15 minutes. Hydraulic Tester: Giovani. Beach Expert: None. Approach: Left internal jugular vein Estimated blood loss: < 5 cc. Specimen: None. Fluoroscopy Time: 0.2 min. Dose (Ka,r): 2.28 mGy. Technique: Informed written consent was obtained. Discussion of risks, benefits, and alternatives were made with the patient. The patient expressed understanding and agreed to proceed. All elements maximal sterile barrier technique was utilized for this procedure, including utilization of sterile scrub solution for skin prep, a large sterile sheet to cover the areas of the patient that were not prepped, and hand hygiene, mask, head covering, and sterile gown for performing radiologist and scrub technologist. The skin was anesthetized with 2% lidocaine. A 0.35 inch diameter guidewire was inserted through the existing nontunneled dialysis catheter into the IVC. A subcutaneous tunnel was created in the left anterior chest wall by blunt dissection. A 23 cm 14.5 Tuvaluan cuffed dialysis catheter was brought through the tunnel. The existing nontunneled hemodialysis catheter was then removed over the guidewire. A peel-away sheath was placed in the left IJ vein and the catheter was advanced through the sheath, with its distal tip terminating in the right atrium. The peel-away sheath was removed. The ports were flushed and aspirated easily following placement. The catheter was sutured to the skin with 2-0 silk to secure its placement. The small jugular incision site was closed using resorbable suture. Vital signs were monitored throughout the procedure by a nurse, and remained stable. The patient tolerated the procedure well and left the department in the same condition. Results: Spot radiograph of the chest demonstrates the new dialysis catheter to lie in the expected position with its tip overlying the superior right atrium. Impression: Successful, uncomplicated conversion of a nontunneled left internal jugular to a tunneled dialysis catheter. Signed by: Yayo Matute MD on 05/23/2019 11:40 AM Dictated By: YAYO MATUTE MD 112 Transcribed By: ALEXIA on 05/25/19 1124 COPY TO: YAYO MATUTE MD [facility] OR [id number] 11:39:00 [place] [address] Patient Name: GABBIE TOBIN MR #: [id number] : 1955 Age/Sex: 63/F Req #: [id number] Adm Physician: KYLEE ACOSTA MD Ordered by: YVOANI SANDRA MD Report #: [id number] Location: ICU Room/Bed: ICU Critical access hospital Procedure: [id number] IR/ [facility] PLMT OR REM Exam Date: 05/23/19 E xam Time: 1059 REPORT STATUS: Kailey d Conversion of a nontunneled to tunneled dialysis catheter, 05/23/2019. History: Renal failure. Modality: Fluoroscopy. Sedation: Versed 1.0 mg and fentanyl 50 mcg was given intrav enously for conscious sedation. Vital signs were monitored throughout the pro cedure by a nurse, and remained stable. Physician intra-service time was 15 mi nutes. Hydraulic Tester: Giovani. Beach Expert: None. Approach: Left internal jug ular vein Estimated blood loss: < 5 cc. Specimen: None. Fluoroscopy Time: 0.2 min. Dose (Ka,r): 2.28 mGy. Technique: Informed written consent was obtained. Discussion of ri sks, benefits, and alternatives were made with the patient. The patient expres sed understanding and agreed to proceed. All elements maximal sterile barrier technique was utilized for this procedure, including utilization of sterile scrub solution for skin prep, a large sterile sheet to cover the areas of the patient that were not prepped, and hand hygiene, mask, head covering, and mary rile gown for performing radiologist and scrub technologist. The skin was anesthetized with 2% lidocaine. A 0.35 inch diameter guidewire was inserted th rough the existing nontunneled dialysis catheter into the IVC. A subcutaneo us tunnel was created in the left anterior chest wall by blunt dissection. A 23 cm 14.5 Tuvaluan cuffed dialysis catheter was brought through the tunnel. The existing nontunneled hemodialysis catheter was then removed over the guidewir e. A peel-away sheath was placed in the left IJ vein and the catheter was adva nced through the sheath, with its distal tip terminating in the right atrium. The peel-away sheath was removed. The ports were flushed and aspirated easily following placement. The catheter was sutured to the skin with 2-0 silk to s ecure its placement. The small jugular incision site was closed using resorba ble suture. Vital signs were monitored throughout the procedure by a nurse, an d remained stable. The patient tolerated the procedure well and [facility]. Results: Spot radiograph of the chest demons trates the new dialysis catheter to lie in the expected position with its tip overlying the superior right atrium. Impression: Successful, uncomplicated conversion of a nontunneled left internal jugular to a tunneled dialysis catheter. Signed by: Yayo Matute MD on 05/23/2019 11:40 AM Dictated By: YAYO MATUTE MD Electro nically Signed By: YAYO MATUTE MD on 05/25/191123 Transcribed By: ALEXIA on 05/25/191123 COPY TO: YOVANI SANDRA MD IR [id number] 11:39:00 [place] [address] Patient Name: GABBIE TOBIN MR #: [id number] : 1955 Age/Sex: 63/F Req #: [id number] Adm Physician: KYLEE ACOSTA MD Ordered by: YOVANI SANDRA MD Report #: [id number] Location: ICU Room/Bed: ICU Critical access hospital Procedure: [id number] DX/ IR CONSULT Exam Date: Exam Time: REPORT STATUS: Signed Conversion of a nontunneled to tunneled dialysis catheter, 05/23/2019. History: Renal failure. Modality: Fluoroscopy. Sedation: Versed 1.0 mg and fentanyl 50 mcg was given intravenously for conscious sedation. Vital signs were monitored throughout the procedure by a nurse, and remained stable. Physician intra-service time was 15 minutes. Jordan thomas Tank Setter Helper: Giovani. Beach Expert: None. Approach: Left internal jugular vein Estimated blood loss: < 5 cc. Specimen: None. Fluoroscopy Time: 0.2 min. Dose (Ka,r): 2.28 mGy. Technique: Informed written consent was obtained. Discussion of risks, benefits, and alternatives were made with the patient. The patient expressed understanding and agreed to proceed. All elements maximal sterile barrier technique was utilized for this procedure, including utilization of sterile scrub solution for skin prep, a large sterile sheet to cover the areas of the patient that were not prepped, and hand hygiene, mask, head covering, and sterile gown for performing radiologist and scrub technologist. The skin was anesthetized with 2% lidocaine. A 0.35 inch diameter guidewire was inserted through the existing nontunneled dialysis catheter into the IVC. A subcutaneous tunnel was created in the left anterior chest wall by blunt dissection. A 23 cm 14.5 Tuvaluan cuffed dialysis catheter was brought through the tunnel. The existing nontunneled hemodialysis catheter was then removed over the guidewire. A peel- away sheath was placed in the left IJ vein and the catheter was advanced through the sheath, with its distal tip terminating in the right atrium. The peel-away sheath was removed. The ports were flushed and aspirated easily following placement. The catheter was sutured to the skin with 2-0 silk to s ecure its placement. The small jugular incision site was closed using resorba ble suture. Vital signs were monitored throughout the procedure by a nurse, laisha d remained stable. The patient tolerated the procedure well and [facility]. Results: Spot radiograph of the chest demons trates the new dialysis catheter to lie in the expected position with its tip overlying the superior right atrium. Impression: Successful, uncomplicated conversion of a nontunneled left internal jugular to a tunneled dialysis catheter. Signed by: Yayo Matute MD on 05/23/2019 11:40 AM Dictated By: YAYO MATUTE MD Electro nically Signed By: YAYO MATUTE MD on 05/25/194 Transcribed By: ALEXIA on 05/25/191123 COPY TO: YOVANI SANDRA MD TUNNELLED CVC INSERT W/O [id number] 11:39:00 [facility] [address] [place], [place] [address] Patient Name: GABBIE TOBIN MR #: [id number] : 1955 Age/Sex: 63/F Req #: [id number] Adm Physician: KYLEE ACOSTA MD Ordered by: YOVANI SANDRA MD Report #: [id number] Location: ICU Room/Bed: ICU Critical access hospital Procedure: [id number] IR/ TUNNELLED CVC INSERT W/O PORT Exam Date: Exam Time: REPORT STATUS: Signed Conversi on of a nontunneled to tunneled dialysis catheter, 05/23/2019. History: Renal failure. Modality: Fluoroscopy. Sedation: Versed 1.0 mg and fentanyl 50 mcg was given intravenously for conscious sedation. Vital signs were monitored throughout the procedure by a nurse, and remained stable. Physician intra-service time was 15 minutes. Hydraulic Tester: Giovani. Beach Expert: None. Approach: Left internal jugular vein Estimated blood loss: < 5 cc. Specimen: None. Fluoroscopy Time: 0.2 min. Dose (Ka,r): 2.28 mGy. Technique: Informed written consent was obtained. Discussion of risks, benefits, and alternatives were made with the patient. The patient expressed understanding and agreed to proceed. All elements maximal sterile barrier technique was utilized for this procedure, including utilization of sterile scrub solution for skin prep, a large sterile sheet to cover the areas of the patient that were not prepped, and hand hygiene, mask, head covering, and mary rile gown for performing radiologist and scrub technologist. The skin was anesthetized with 2% lidocaine. A 0.35 inch diameter guidewire was inserted th rough the existing nontunneled dialysis catheter into the IVC. A subcutaneo us tunnel was created in the left anterior chest wall by blunt dissection. A 23 cm 14.5 Tuvaluan cuffed dialysis catheter was brought through the tunnel. The existing nontunneled hemodialysis catheter was then removed over the guidewir e. A peel-away sheath was placed in the left IJ vein and the catheter was adva nced through the sheath, with its distal tip terminating in the right atrium. The peel-away sheath was removed. The ports were flushed and aspirated easily following placement. The catheter was sutured to the skin with 2-0 silk to s ecure its placement. The small jugular incision site was closed using resorba ble suture. Vital signs were monitored throughout the procedure by a nurse, laisha d remained stable. The patient tolerated the procedure well and [facility]. Results: Spot radiograph of the chest demons trates the new dialysis catheter to lie in the expected position with its tip overlying the superior right atrium. Impression: Successful, uncomplicated conversion of a nontunneled left internal jugular to a tunneled dialysis catheter. Signed by: Yayo Matute MD on 05/23/2019 11:40 AM Dictated By: YAYO MATUTE MD Electro nically Signed By: YAYO MATUTE MD on 05/25/19 112 Transcribed By: ALEXIA on 05/25/191123 COPY TO: YOVANI SANDRA MD Blood Pammwpf0180-61-28 05:06:00* Test Item Value Reference Range Interpretation Comments Blood Culture (test code = 97004311) NO GROWTH AFTER 5 DAYS, FINAL REPORT [facility] HospitalReactive Eqopbtzvsxx8063-07-92 10:14:00* Test Item Value Reference Range Interpretation Comments Reactive Lymphocytes (test code = 67411-8) 2 [facility] HospitalHepatitis Be Kevueava2436-48-97 14:54:00 * Test Item Value Reference Range Interpretation Comments Hepatitis Be Antibody (test code = 08660-6) Negative Negative Performed at: [address] [id number] Pathology Assistant: Zee Kenyn MD, Phone: [phone] [facility]ow[facility] HospitalCHEST SINGLE (PORTABLE)2019-05-18 06:17:[address], [place] [address] Patient Name: GABBIE TOBIN MR #: [id number] : 1955 Age/Sex: 63/F Req #: [id number] Adm Physician: PINA RUCKER MD Ordered by: BHAVESH ABBASI MD Report #: [id number] Location: ICU Room/Bed: ICU Counts include 234 beds at the [facility] Procedure: [id number] DX/CHEST SINGLE (PORTABLE) Exam Date: 05/18/19 Exam Time: 0535 REPORT STATUS: Signed Examination: Single AP view of the chest. COMPARISON: 05/17/2019 INDIC ATION: Respiratory failure DISCUSSION: See impression IMPRES SHARMAINE: 1. Right internal jugular chest port and left internal jugular tem porary hemodialysis catheter are unchanged in position. 2. Interval im provement in patchy bilateral airspace opacities relative to 05/17/2019, likely reflective of improved pulmonary edema. Stable enlargement of the cardiac emily houette. Signed by: Dr. Edith Briceño M.D. on 05/18/2019 6:19 AM Dic tated By: EDITH BRICEÑO MD 8 COPY TO: BHAVESH ABBASI Hepatitis B Core Total Lamgmocj7003-42-67 11:32:00* Test Item Value Reference Range Interpretation Comments Hepatitis B Core Total Antibody (test code = 93567-7) Negative Negative [facility] B Surface Wwceoks0043-46-46 11:32:00* Test Item Value Reference Range Interpretation Comments Hepatitis B Surface Antigen (test code = 5196-1) Negative Negat ana lilia [facility] B Core IgM Mblipamz7650-79-77 11:32:00* Test Item Value Reference Range Interpretation Comments Hepatitis B Core IgM Antibody (test code = 13442-0) Negative Ne gative Performed at: - [facility] [id number] Director: Pedro Smith MD, Phone: [phone] [facility] SINGLE (PORTABLE)2019-05-17 05:48:00 [facility] [address] [place] [address] Patient Name: GABBIE TOBIN MR #: [id number] : 1955 Age/Sex: 63/F Req #: [id number] Adm Physician: PINA RUCKER MD Ordered by: BHAVESH ABBASI MD Report #: [id number] Location: ICU Room/Bed: [place] [address] Procedure: [id number] DX/CHEST SINGLE (PORTABLE) Exam Date: Exam Time: REPORT STATUS: Signed Examination: Single AP view of the chest. COMPARISON: 05/16/2019 INDICATION: Respi ratory failure DISCUSSION: See impression IMPRESSION: 1. Right internal jugular central venous port and left internal jugular temp orary hemodialysis catheter are unchanged in position. 2. Stable enlarge ment of the cardiac silhouette with alveolar pulmonary edema versus multifocal pneumonia. No new consolidations. Signed by: Dr. Edith Briceño M.D. on 5:50 AM Dictated By: EDITH BRICEÑO MD Transcribed By: ALEXIA on 05/17/1950 COPY TO: BHAVESH ABBASI MD IR EEFWOCF4291-66-33 15:36:00 [facility] [address] [address] Patient Name: GABBIE TOBIN MR #: [id number] : 1955 Age/Sex: 63/F Req #: [id number] Adm Physician: PINA RUCKER MD Ordered by: YOVANI SANDRA MD Report #: [id number] Location: ICU Room/Bed: ICU Counts include 234 beds at the [facility] Procedure: [id number] D X/IR CONSULT Exam Date: Exam Time: REPORT STATUS: Signed PROCEDURE: Non-tunneled c entral venous catheter placement Procedural Personnel Attending physician (s): Patricia Subramanian MD Fellow physician(s): None Resident physician(s): None Advanced practice provider(s): None Pre-procedure diagnosis: JOSE DANIEL Post-pro cedure diagnosis: Same Indication: Performance of hemodialysis Additional cl inical history: None Complications: No immediate complications. IMPRES SHARMAINE: Insertion of left-sided non-tunneled triple-lumen temporary dialysis catheter Plan: Chest radiograph to confirm positioning prior to use. _ PROCEDURE CIFUENTES MMARY: - Venous access with ultrasound guidance - Non-tunneled central venou s catheter insertion - Additional procedure(s): None PROCEDURE DETAILS: Pre-procedure Consent: Informed consent for the procedure including risks, benefits and alternatives was obtained and time-out was performed prior to the procedure. Preparation (MIPS): The site was prepared and draped using all e lements of maximal sterile barrier technique including sterile gloves, sterile gown, cap, mask, large sterile sheet, sterile ultrasound probe cover, hand hy giene and cutaneous antisepsis with 2% chlorhexidine. Medical reason for si te preparation exception (MIPS): Not applicable Anesthesia/sedation Level of anesthesia/sedation: No sedation Access Local anesthesia was administ ered. The vessel was sonographically evaluated and determined to be patent. Re al time ultrasound was used to visualize needle entry into the vessel and a pe rmanent image was stored. Vein accessed: Internal jugular vein Access techni que: Micropuncture set with 21 gauge needle Catheter placement The access site was dilated and the catheter was placed into the vein over a wire. A mary rile dressing was applied. Catheter placed: 72xuan Trialysis Catheter size (Fr ench): 13 Catheter length (cm): 20 Catheter flush: Heparin (1000 units/mL) Catheter securement technique: Non-absorbable suture Contrast Contrast a gent: None Radiation Dose None. Ultrasound Only. Additional Details Additional description of procedure: None Equipment details: None Specimens removed: None Estimated blood loss (mL): Less than 10 Standardized report: [email or web address]_NonTunneledCatheter_v3 Attestation Signer name: Patricia Subramanian MD I attest that I was present for the entire procedure. I reviewed the stored i mages and agree with the report as written. Signed by: Patricia Subramanian MD on 3:38 PM Dictated By: PATRICIA SUBRAMANIAN MD 37 Transcribed By: ALEXIA on 05/16/19 1538 COPY TO: YOVANI SANDRA MD NON-TUNNELLED CVC CATH FTZLDXI4568-06-77 15:36:00 [place] [address] Patient Name: GABBIE TOBIN MR #: [id number] : 1955 Age/Sex: 63/F Req #: [id number] Adm Physician: PINA RUCKER MD Ordered by: YOVANI SANDRA MD Report #: [id number] Location: ICU Room/Bed: ICU 190-1 Procedure: [id number] I R/NON-TUNNELLED CVC CATH PLACMNT Exam Date: Exam Ti me: REPORT STATUS: Signed PROCE DURE: Non-tunneled central venous catheter placement Procedural Personnel Attending physician(s): Patricia Subramanian MD Fellow physician(s): None Resident jordan awan(s): None Advanced practice provider(s): None Pre-procedure diagn osis: JOSE DANIEL Post-procedure diagnosis: Same Indication: Performance of hemodial ysis Additional clinical history: None Complications: No immediate compli cations. IMPRESSION: Insertion of left-sided non-tunneled triple-lumen temporary dialysis catheter Plan: Chest radiograph to confirm positioni ng prior to use. __ PROCEDURE SUMMARY: - Venous access with ultrasound guidance - Non-tu nneled central venous catheter insertion - Additional procedure(s): None PROCEDURE DETAILS: Pre-procedure Consent: Informed consent for the proce dure including risks, benefits and alternatives was obtained and time-out was performed prior to the procedure. Preparation (MIPS): The site was prepared an d draped using all elements of maximal sterile barrier technique including mary rile gloves, sterile gown, cap, mask, large sterile sheet, sterile ultrasound probe cover, hand hygiene and cutaneous antisepsis with 2% chlorhexidine. M edical reason for site preparation exception (MIPS): Not applicable Anesthe ioana/sedation Level of anesthesia/sedation: No sedation Access Local ane sthesia was administered. The vessel was sonographically evaluated and determi barbara to be patent. Real time ultrasound was used to visualize needle entry into the vessel and a permanent image was stored. Vein accessed: Internal jugular vein Access technique: Micropuncture set with [address] acement The access site was dilated and the catheter was placed into the vein over a wire. A sterile dressing was applied. Catheter placed: Bard Trialysis Catheter size (Tuvaluan): 13 Catheter length (cm): 20 Catheter flush: Hepar in (1000 units/mL) Catheter securement technique: Non-absorbable suture C ontrast Contrast agent: None Radiation Dose None. Ultrasound Only. Additional Details Additional description of procedure: None Equipment deta ils: None Specimens removed: None Estimated blood loss (mL): Less than 10 Standardized report: [email or web address]_NonTunneledCatheter_v3 Attestation Signer na me: Patricia Subramanian MD I attest that I was present for the entire procedure. I rev iewed the stored images and agree with the report as written. Signed by: Patricia Subramanian MD on 05/16/2019 3:38 PM Dictated By: PATRICIA SUBRAMANIAN MD [facility] Signed By: PATRICIA SUBRAMANIAN MD on 05/16/19 153 Transcribed By: ALEXIA on 04/24 07/10 1538 COPY TO: YOVANI SANDRA MD US GUIDANCE FOR PROCEDURE 2019-05-16 15:36:00 [place] [address] Patient Name: GABBIE TOBIN MR #: [id number] : 1955 Age/Sex: 63/F Req #: [id number] Adm Physician: PINA RUCKER MD Ordered by: YOVANI SANDRA MD Report #: [id number] Location: ICU Room/Bed: ICU Counts include 234 beds at the [facility] Procedure: 1659-1878 U S/US GUIDANCE FOR PROCEDURE Exam Date: 05/16/19 Exam Time: 1339 REPORT STATUS: Signed PROCEDURE: Non-tunneled central venous catheter placement Procedural Pers onnel Attending physician(s): Patricia Subramanian MD Fellow physician(s): None Res ident physician(s): None Advanced practice provider(s): None Pre-procedur e diagnosis: JOSE DANIEL Post-procedure diagnosis: Same Indication: Performance of h emodialysis Additional clinical history: None Complications: No immediate complications. IMPRESSION: Insertion of left-sided non-tunneled tripl e-lumen temporary dialysis catheter Plan: Chest radiograph to confirm po sitioning prior to use. PROCEDURE SUMMARY: - Venous access with ultrasound guidance - Non-tunneled central venous catheter insertion - Additional procedure(s): No ne PROCEDURE DETAILS: Pre-procedure Consent: Informed consent for e procedure including risks, benefits and alternatives was obtained and time-o ut was performed prior to the procedure. Preparation (MIPS): The site was prep ared and draped using all elements of maximal sterile barrier technique includ ing sterile gloves, sterile gown, cap, mask, large sterile sheet, sterile ultr asound probe cover, hand hygiene and cutaneous antisepsis with 2% chlorhexidin e. Medical reason for site preparation exception (MIPS): Not applicable Anesthesia/sedation Level of anesthesia/sedation: No sedation Access Lo nkechi anesthesia was administered. The vessel was sonographically evaluated and determined to be patent. Real time ultrasound was used to visualize needle ent ry into the vessel and a permanent image was stored. Vein accessed: Internal j ugular vein Access technique: Micropuncture set with 21 gauge needle Cath eter placement The access site was dilated and the catheter was placed into e vein over a wire. A sterile dressing was applied. Catheter placed: Bard Tr ialysis Catheter size (Tuvaluan): 13 Catheter length (cm): 20 Catheter flush : Heparin (1000 units/mL) Catheter securement technique: Non-absorbable suture Contrast Contrast agent: None Radiation Dose None. Ultrasound Onl y. Additional Details Additional description of procedure: None Equipme nt details: None Specimens removed: None Estimated blood loss (mL): Less chad n 10 Standardized report: [email or web address]_NonTunneledCatheter_v3 Attestation Si gner name: Patricia Subramanian MD I attest that I was present for the entire procedure . I reviewed the stored images and agree with the report as written. Sign ed by: Patricia Subramanian MD on 05/16/2019 3:38 PM Dictated By: PATRICIA SUBRAMANIAN MD El ectronically Signed By: PATRICIA SUBRAMANIAN MD on 05/16/191537 Transcribed By: ALEXIA on 05/16/191537 COPY TO: YOVANI SANDRA MD CHEST SINGLE (PORTABLE) 2019-05-16 15:16:00 [place] [address] Patient Name: GABBIE TOBIN MR #: [id number] : 1955 Age/Sex: 63/F Req #: [id number] Adm Physician: PINA RUCKER MD Ordered by: PATRICIA SUBRAMANIAN MD Report #: [id number] Location: ICU Room/Bed: ICU Counts include 234 beds at the [facility] Procedure: 1174-6140 D X/CHEST SINGLE (PORTABLE) Exam Date: 05/16/19 Exam T ervin: 2194 REPORT STATUS: Signed EXAMINATION: CHEST SINGLE (PORTABLE) INDICATION: Line placement C OMPARISON: Chest radiograph earlier the same day FINDINGS: LINES/ TUBES:Interval placement of left IJ temp or dialysis catheter terminating in t he superior vena cava. Right chest port unchanged. EKG leads overlie the chest . LUNGS:The lungs are moderately inflated. There is perihilar fullness and indistinctness of the pulmonary vasculature. Bilateral airspace opacities, not significantly changed. PLEURA:No pleural effusion or pneumothorax. MEDIASTINUM:Cardiomediastinal silhouette is stably enlarged. BONES/SOFT TIS SUES:No acute osseous injury. ABDOMEN:No free air under the diaphragm. IMPRESSION: Left IJ temporary dialysis catheter terminates in the superior vena cava. Line is ready for immediate use. Unchanged cardiomegaly and pulmonary edema. Signed by: Patricia Subramanian MD on 05/16/2019 3:18 PM Dict ated By: PATRICIA SUBRAMANIAN MD 17 Transcribed By: ALEXIA on 05/16/191517 COPY TO: PATRICIA SUBRAMANIAN MD Arterial Blood uX1985-69-22 14:09:00* Test Item Value Reference Range Interpretation Comments Arterial Blood pH (test code = 2744-1) 7.37 7.31-7.41 [facility] Partial Pressure CO2 2019-05-16 14:09:00* Test Item Value Reference Range Interpretation Comments Arterial Blood Partial Pressure CO2 (test code = 2018-8) 40 41-51 L [facility]Ar[facility] Partial Pressure O2 2019-05-16 14:09:00* Test Item Value Reference Range Interpretation Comments Arterial Blood Partial Pressure O2 (test code = 2018-8) 94 80-105 [facility]Ar[facility] Blood KBT36124-49-26 14:09:00* Test Item Value Reference Range Interpretation Comments Arterial Blood HCO3 (test code = 1960-4) 23 23-28 [facility] Blood Base Atwxsc3295-66-65 14:09:00* Test Item Value Reference Range Interpretation Comments Arterial Blood Base Excess (test code = 1925-7) -2.0 -2-3 [facility] Oxygen Saturation 2019-05-16 14:09:00* Test Item Value Reference Range Interpretation Comments Arterial Blood Oxygen Saturation (test code = 2708-6) 97.0 95-98 [facility] HospitalFiO22020-02-24 14:09:00* Test Item Value Reference Range Interpretation Comments FiO2 (test code = FiO2) 60 BIPAP 16/8 RR 16DREW FROM RIGHT BRACHIALCHI [facility] CHEST SINGLE (PORTABLE)2019-05-16 06:58:00 [facility] [address] [address] Patient Name: GABBIE TOBIN MR #: [id number] : 1955 Age/Sex: 63/F Req #: [id number] Adm Physician: PINA RUCKER MD Ordered by: BHAVESH ABBASI MD Report #: [id number] Location: ICU Room/Bed: ICU Counts include 234 beds at the [facility] Procedure: 0004-0059 DX/CHEST SINGLE (PORTABLE) Exam Date: 05/16/19 Exam Time: 529 REPORT STATUS: Signed EXAMINATION: CHEST SINGLE (PORTABLE) COMPARISON: Chest x-ray 05/15/2019 INDICATION: Altered level of consciousness, shortness of breath resp failure [id number] DISCUSSION: Frontal view of the chest obtai barbara at 0604 hours. The patient's chin overlies the upper chest. HEART AND MEDIASTINUM: The heart is enlarged LINES: MediPort catheter in the SVC LUNGS: Diffuse groundglass opacities are stable and suggestive of edema. Improved aeration of the right lung base. Vascular congestion is stable. PLEURA: No large effusions or pneumothorax. BONES AND SOFT TISSUES: No fo nkechi osseous lesion. The soft tissues are normal. IMPRESSION: Stable c ardiomegaly, vascular congestion and alveolar edema. Signed by: Dr. Byron Parrish MD on 05/16/2019 7:00 AM Dictated By: JACKY PARRISH MD El ectronically Signed By: JACKY PARRISH MD on 05/16/19 07 Transcribed By: Bhargav CLARKE on 05/16/19699 COPY TO: BHAVESH ABBASI MD Venous Blood pH 2019-05-15 10:12:00* Test Item Value Reference Range Interpretation Comments Venous Blood pH (test code = Venous Blood pH) 7.413 7.35-7.3 8 H [facility] Partial Pressure CO2 2019-05-15 10:12:00* Test Item Value Reference Range Interpretation Comments Venous Blood Partial Pressure CO2 (test code = Venous Blood Partial Pressure CO2) 36.1 44-48 L [facility] Partial Pressure O2 2019-05-15 10:12:00* Test Item Value Reference Range Interpretation Comments Venous Blood Partial Pressure O2 (test code = Venous B lood Partial Pressure O2) 48 40-41 H [facility] HospitalVen[facility] Blood HYH23627-06-63 10:12:00* Test Item Value Reference Range Interpretation Comments Venous Blood HCO3 (test code = Venous Blood HCO3) 23.0 21-2 2 H [facility] Blood Total Carbon Dioxide 2019-05-15 10:12:00* Test Item Value Reference Range Interpretation Comments Venous Blood Total Carbon Dioxide (test code = Venous Blood Total Carbon Dioxide) 24 [facility] Blood Base Wusmha5097-09-43 10:12:00* Test Item Value Reference Range Interpretation Comments Venous Blood Base Excess (test code = Venous Blood Base Excess) -2 [facility] Blood Oxygen Ebkcaulhvt9283-13-04 10:12:00* Test Item Value Reference Range Interpretation Comments Venous Blood Oxygen Saturation (test code = Venous Blood Oxy gen Saturation) 84 [facility])2019-05-15 06:19:00 [place] [address] Patient Name: GABBIE TOBIN MR #: [id number] : 1955 Age/Sex: 63/F Req #: [id number] Adm Physician: PINA RUCKER MD Ordered by: BHAVESH ABBASI MD Report #: [id number] Location: ICU Room/Bed: ICU Counts include 234 beds at the [facility] Procedure: 6060-5055 DX/CHEST SINGLE (PORTABLE) Exam Date: 05/15/19 Exam Time: 0545 REPORT STATUS: Signed EXAMINATION: CHEST SINGLE (PORTABLE) COMPARISON: Chest x-ray 05/14/2019 INDICATION: resp distress [id number] DISCUSSION: F rontal view of the chest obtained at 0554 hours. HEART AND MEDIASTINUM: St able cardiomegaly LINES: MediPort catheter terminates in the SVC CARMEN NGS: Lung volumes are lower. Increasing right basilar airspace opacity. Diffus e airspace opacities in the left lung are similar. PLEURA: No large effusi ons. No pneumothorax. BONES AND SOFT TISSUES: Stable. IMPRESSION: Lower lung volumes with increasing right basilar airspace opacity suggestive of atelectasis. No change in airspace opacities in the left lung. Signed by: Dr. Jacky Parrish MD on 05/15/2019 6:21 AM Dictated By: JACKY PARRISH MD 0 Tr anscribed By: ALEXIA on 05/15/19620 COPY TO: BHAVESH ABBASI MD Triglycerides Fkowo7887-27-80 05:51:00* Test Item Value Reference Range Interpretation Comments Triglycerides Level (test code = 2571-8) 103 0-149 [facility] HospitalCholesterol Akmqp5487-18-74 05:51:00* Test Item Value Reference Range Interpretation Comments Cholesterol Level (test code = 2093-3) 134 0-199 Less than 200 mg/dL Low Gsur787 - 239 mg/dL Borderline Xsni858 m g/dl and greater High Risk [facility] HospitalLDL Yfygywlnqer0643-97-95 05:51:00* Test Item Value Reference Range Interpretation Comments LDL Cholesterol (test code = 2089-1) 82 60-130 [facility] HospitalHDL Hyubxagjngp6821-93-72 05:51:00* Test Item Value Reference Range Interpretation Comments HDL Cholesterol (test code = 2085-9) 31 40-60 L [facility] HospitalCholesterol/HDL Jhojt4674-32-17 05:51:00 * Test Item Value Reference Range Interpretation Comments Cholesterol/HDL Ratio (test code = 9830-1) 4.3 3.0-3.6 H [facility] HospitalFree Thyroxine Kbxcd1880-19-73 15:17:00* Test Item Value Reference Range Interpretation Comments Free Thyroxine Index (test code = 15336-6) 2.0190 1.4-3.8 [facility] HospitalThyroxine (T4)2019-05-14 15:17:00* Test Item Value Reference Range Interpretation Comments Thyroxine (T4) (test code = 3026-2) 5.01 4.5-10.9 Our current method for Total T4 is not recommended for use as the only marker fo r evaluating patients for thyroid disorders.[facility] HospitalTriiodothyronine (T3) Akqmuk9573-90-12 15:17:00* Test Item Value Reference Range Interpretation Comments Triiodothyronine (T3) Uptake (test code = 3050-2) 40.30 22.5 -37.0 H [facility] HospitalThyroid Stimulating Hormone (TSH) 2019-05-14 15:17:00* Test Item Value Reference Range Interpretation Comments Thyroid Stimulating Hormone (TSH) (test code = 36588-3) 0.409 0.350-4.940 [facility] ([facility])2019-05-14 06:11:00 [place] [address] Patient Name: GABBIE TOBIN MR #: [id number] : 1955 Age/Sex: 63/F Req #: [id number] Adm Physician: PINA RUCKER MD Ordered by: ERIK FORD MD Report #: [id number] Location: ICU Room/Bed: ICU Counts include 234 beds at the [facility] Procedure: 0 222-0008 DX/CHEST SINGLE (PORTABLE) Exam Date: 05/14/19 Exam Time: 05 REPORT STATUS: Signed EXAMINATION: CHEST SINGLE (PORTABLE) COMPARISON: Chest x-ray 05/13/2019 INDICATION: PULMONARY EDEMA [id number] DISC USSION: Frontal view of the chest obtained at 0527 hours. HEART AND MEDIA STINUM: Stable cardiomegaly and pulmonary vascular congestion. LINES: M ediPort catheter terminates in the SVC LUNGS: Airspace opacities throughou t the left lung and in the right mid and lower lung zones are similar. PL EURA: No large effusions or pneumothorax. BONES AND SOFT TISSUES: No foca l osseous lesion. The soft tissues are normal. IMPRESSION: Multifocal airspace opacities and vascular congestion are stable. No new cardiopulmonary findings. Signed by: Dr. Jacky Parrish MD on 05/14/2019 6:17 AM Dictated By: JACKY PARRISH MD 6 Transcribed By: ALEXIA on 05/14/19616 COPY TO: ERIK PARRA MD B-Type Natriuretic [id number] 05:54:00* Test Item Value Reference Range Interpretation Comments B-Type Natriuretic Peptide (test code = 72734-7) 1680.0 0-100 [facility] [id number] 00:56:00* Test Item Value Reference Range Interpretation Comments Urine WBC (test code = 5821-4) 11-20 0-5 [facility] [id number] 00:56:00* Test Item Value Reference Range Interpretation Comments Urine RBC (test code = 69777-1) 21-50 0-5 [facility] Ayiylqbp1065-27-01 00:56:00* Test Item Value Reference Range Interpretation Comments Urine Bacteria (test code = 04323-3) MANY NONE [facility] Epithelial Tirno5155-81-10 00:56:00 * Test Item Value Reference Range Interpretation Comments Urine Epithelial Cells (test code = 39413-8) FEW NONE [facility] Amorphous Wsizpcgj5700-53-80 00:56:00* Test Item Value Reference Range Interpretation Comments Urine Amorphous Sediment (test code = 8246-1) MANY FEW [facility] Fine Granular Nmebg0726-26-70 00:56:00* Test Item Value Reference Range Interpretation Comments Urine Fine Granular Casts (test code = 38101-9) 1-5 >0 [facility] Coarse Granular Fhlpb6863-76-39 00:56:00* Test Item Value Reference Range Interpretation Comments Urine Coarse Granular Casts (test code = 18915-8) 1-5 >0 [facility] Acfbt4229-10-39 00:39:00* Test Item Value Reference Range Interpretation Comments Urine Color (test code = 5778-6) CONNER YELLOW [facility] Zsxtvlr0035-00-25 00:39:00* Test Item Value Reference Range Interpretation Comments Urine Clarity (test code = 48105-6) CLOUDY CLEAR H [facility] Specific Ggtkuee8361-57-62 00:39:00 * Test Item Value Reference Range Interpretation Comments Urine Specific [place] (test code = 5811-5) 1.020 1.010-1.02 5 [facility] [id number] 00:39:00* Test Item Value Reference Range Interpretation Comments Urine pH (test code = 84615-9) 6.5 5-7 [facility] Leukocyte Inknprcf8675-30-98 00:39:00* Test Item Value Reference Range Interpretation Comments Urine Leukocyte Esterase (test code = 5799-2) NEGATIVE NEGATIVE [facility] Nilqyre9266-44-95 00:39:00* Test Item Value Reference Range Interpretation Comments Urine Nitrite (test code = 34675-0) NEGATIVE NEGATIVE [facility] Qtvziwa7139-13-56 00:39:00* Test Item Value Reference Range Interpretation Comments Urine Protein (test code = 5804-0) 3+ NEGATIVE [facility] Glucose (UA)2019-05-14 00:39:00* Test Item Value Reference Range Interpretation Comments Urine Glucose (UA) (test code = 2349-9) 2+ NEGATIVE H [facility] Hjrwtvf0347-38-17 00:39:00* Test Item Value Reference Range Interpretation Comments Urine Ketones (test code = 08036-1) NEGATIVE NEGATIVE [facility] Sginbejoloia9126-38-20 00:39:00* Test Item Value Reference Range Interpretation Comments Urine Urobilinogen (test code = 10462-8) 0.2 0.2-1 [facility] Otnmmavzm0255-95-46 00:39:00* Test Item Value Reference Range Interpretation Comments Urine Bilirubin (test code = 1978-6) 1+ NEGATIVE H [facility] Tkedj7774-45-17 00:39:00* Test Item Value Reference Range Interpretation Comments Urine Blood (test code = 40833-8) 3+ NEGATIVE H [facility]2019-05-13 19:50:00 [facility] [address] [address] Patient Name: GABBIE TOBIN MR #: [id number] : 1955 Age/Sex: 63/F Req #: [id number] Adm Physician: Ordered by: ERIK FORD MD Report #: [id number] Location: ER Room/Bed: Procedure: 022 DX/CHEST SINGLE (PORTABLE) Exam Date: Exam T ervin: REPORT STATUS: Signed Exam ination: Single AP view of the chest. COMPARISON: Chest 2 views 02/11/2019 INDICATION: Respiratory distress IMPRESSION: Exam markedly limited due to patient rotation. 1. Lines and Tubes: Stable right upper chest Po rt-A-Cath. 2. Lungs are well-inflated. Patchy airspace opacity in the left up per lung and to a lesser degree left lower lung, as well as right lower lung, which may represent focal pneumonia in the appropriate clinical setting or pul monary edema/fluid overload. 3. Enlarged cardiac silhouette Central pulmon vida venous congestion 4. No acute bony abnormalities. Signed by: Dr. Juan M Dickerson M.D. 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 No radiographica lly apparent renal calculi. Nonobstructive bowel gas pattern. No free air. Mil d degenerative changes of the visualized spine and both hip joints. Phlebolith s in the pelvis. Atherosclerotic arterial calcifications. Impression: No radiographically apparent renal calculi. Signed by: Patricia Subramanian MD on 10:37 AM Dictated By: PATRICIA SUBRAMANIAN MD 1037 Transcribed By: ALEXIA on 02/11/19 1037 CO PY TO: AN POWELL MD US RENAL RETROPERITONEAL [id number] 10:27:00 [place] [address] Patient Name: GABBIE TOBIN MR #: [id number] : [birth year] Age/Sex: 63/F Req #: [id number] Adm Physician: Ordered by: AN POWELL MD Report #: [id number] Location: Room/Bed: Procedure: [id number] US/ US RENAL RETROPERITONEAL COMP Exam Date: Exam Time: REPORT STATUS: Signed EXAM: Re nal Ultrasound INDICATION: CALCULUS OF KIDNEY COMPARISON: CT ab domen and pelvis of 09/20/2018, renal ultrasound of 07/20/2017 TECHNIQUE: Transv erse and longitudinal images of the kidneys and bladder were obtained. FINDINGS: Right Kidney: Status post right nephrectomy Left Kid facundo: Length: 12.5 cm Appearance: Increased echogenicity. Collecting sys tem: No hydronephrosis Stones: 1.9 cm shadowing structure at renal pelvis andrew esponds with previously seen calcified aneurysm status post coiling. Cyst/Ma ss: 3.1 cm medial midpole cyst with internal septations. 1.5 cm simple mid patricia e cyst. Bladder: No mass or calculi. Ureteral jet not visualized. Prevoi d volume estimate of 44.5 cc. IMPRESSION: Status post right nephrectomy . Increased left renal parenchymal echogenicity, compatible with medical re nal disease. 1.9 cm shadowing structure at the left renal pelvis correspo nds with previously seen calcified aneurysm status post coiling. Left nilson al cysts, most notably a 3.1 cm medial cyst with internal septations (Bosniak 2) Signed by: Patricia Subramanian MD on 02/11/2019 10:34 AM Dictated By: NATALI SUBRAMANIAN MD 1034 Transcribe d By: ALEXIA on 02/11/19 1034 COPY TO: AN POWELL MD CHEST 2 [id number] 10:25:00 [place] [address] Patient Name: GABBIE TOBIN MR #: [id number] : 1955 Age/Sex: 63/F Req #: [id number] Adm Physician: Ordered by: AN POWELL MD Report #: [id number] Location: Room/Bed: Procedure: [id number] DX/ CHEST 2 VIEWS Exam Date: Exam Time: REPORT STATUS: Signed EXAMINATION: CHEST 2 EWS INDICATION: Shortness of breath COMPARISON: Chest radiograph o f 09/21/2018 FINDINGS: LINES/TUBES:Right chest port in unchanged po sition. LUNGS:The lungs are well-inflated. There is perihilar fullness and indistinctness of the pulmonary vasculature. PLEURA:No pleural effusion or pneumothorax. MEDIASTINUM:Cardiomediastinal silhouette is stably enlarged. BONES/SOFT TISSUES:No acute osseous injury. ABDOMEN:No free air under the diaphragm. IMPRESSION: Cardiomegaly and mild interstitial pulmo nary edema. Signed by: Patricia Subramanian MD on 02/11/2019 10:26 AM Dictate d By: PATRICIA SUBRAMANIAN MD 1026 T ranscribed By: ALEXIA on 02/11/19 1026 COPY TO: AN POWELL MD Stool Bchccrturskq5293-21-91 22:10:00* Test Item Value Reference Range Interpretation Comments Stool Calprotectin (test code = 52202-7) <16 0-120 Concentration Interpretation Follow-Up<16 - 50 ug/g Normal None>50 -120 ug/g Borderline Re-evaluate in 4-6 weeks >120 ug/g Abnormal Repeat as clinically indicatedPerformed at: [facility] [id number] Director: Zee Kenny MD, Phone: [phone] [facility] Lactoferrin (LAB)2019-01-07 11:03:00* Test Item Value Reference Range Interpretation Comments Stool Lactoferrin (LAB) (test code = 40090-4) NEGATIVE NEGATIVE Testing on stool aspirate specimens is outside electrical instrument repairer claims since specime n type not validated on this assay.[facility] [id number] 11:58:00 [place] [address] Patient Name: GABBIE TOBIN MR #: [id number] : 1955 Age/Sex: 63/F Req #: [id number] Adm Physician: Ordered by: DALIA BRASWELL MD Report #: [id number] Location: OR Room/Bed: Procedure: [id number] DX/CHEST 2 VIEWS Exam Date: Exam Time: REPORT STATUS: Signed EXAMINATION: CHEST 2 VIEWS INDICATION: Pre-operative COMPARISON: Chest radiograph of FINDINGS: LINES/TUBES:Right chest port with catheter tip in the superior vena cava. LUNGS:The lungs are well-inflated. There is torres hilar fullness and indistinctness of the pulmonary vasculature. PLEURA:No pleural effusion or pneumothorax. MEDIASTINUM:The cardiomediastinal silhou ette is enlarged. BONES/SOFT TISSUES:No acute osseous injury. ABDOMEN: No free air under the diaphragm. IMPRESSION: Cardiomegaly and mild in terstitial pulmonary edema. No focal pneumonia. Signed by: Patricia Subramanian MD on 01/06/2019 12:00 PM Dictated By: PATRICIA SUBRAMANIAN MD Electronically Sig barbara By: PATRICIA SUBRAMANIAN MD on 01/06/19 1200 Transcribed By: ALEXIA on 01/06/19 1200 COPY TO: DALIA BRASWELL MD [id number] 15:29:00* Test Item Value Reference Range Interpretation Comments GLUBED (test code = GLUBED) 90 mg/dL 74-106 N Performed by certified crew boat operator at [facility] PROTHROMBIN [id number] 14:47:00* Test Item Value Reference Range Interpretation Comments PROTHROMBIN TIME PATIENT (test code = PTP) 12.2 seconds 9.0-14.0 N INTERNATIONAL NORMAL RATIO (test code = INR) 1.0 0.8-1.2 N The therapeutic range for oral anticoagulant therapy formost indications is an international normalized ratio (INR)of between 2.0 and 3.0. The recommended therapeutic INRrange for various clinical situations is listed below: Clinical Situation INR range Pulmonary e mbolism treatment (2.0-3.0)Venous thrombosis treatmentVenous thrombosis prophylaxis (high risk surgery)Prevention of systemic embolism from: Acute myocardial infarction Valvular heart disease Atrial fibrillation Mechanical prosthetic heart valves (2.5-3.5) IS PATIENT ON ANTICOAGULANTS? YLIST ANTICOAGULANTS COUMADINTHROMBOPLASTIN TIME [id number] 14:47:00* Test Item Value Reference Range Interpretation Comments THROMBOPLASTIN TIME PARTIAL (test code = PTT) 35.6 seconds 25.0-36. 5 N IS PATIENT ON ANTICOAGULANTS? YLIST ANTICOAGULANTS COUMADINCOMPREHENSIVE METABOLIC [id number] 12:49:00* Test Item Value Reference Range Interpretation Comments SODIUM (test code = NA) 138 mmol/L 136-145 N POTASSIUM (test code = K) 4.0 mmol/L 3.5-5.1 N CHLORIDE (test code = CL) 108.0 mmol/L 98-107 H CARBON DIOXIDE (test code = CO2) 20.0 mmol/L 21-32 L ANION GAP (test code = GAP) 14.0 10-20 N GLUCOSE (test code = GLU) 99 mg/dL 74-106 N BLOOD UREA NITROGEN (test code = BUN) 34 mg/dL 7-18 H GLOMERULAR FILTRATION RATE (test code = GFR) 15 mL/min >=60 Estimated GFR by using Modified MDRD formula.Chronic kidney disease is defined as either kidney damageor GFR <60 mL/min/1.73 m2 for >3 months. CREATININE (test code = CREAT) 3.10 mg/dL 0.55-1.02 H Note change in reference range due to change in reagent. BUN/CREATININE RATIO (test code = BUN/CREA) 11.1 10-20 N TOTAL PROTEIN (test code = PROT) 7.6 gram/dL 6.4-8.2 N ALBUMIN (test code = ALB) 3.1 g/dL 3.4-5.0 L GLOBULIN (test code = GLOB) 4.5 gram/dL 2.7-4.2 H ALBUMIN/GLOBULIN RATIO (test code = A/G) 0.7 0.75-1.50 L CALCIUM (test code = CA) 8.9 mg/dL 8.5-10.1 N BILIRUBIN TOTAL (test code = BILT) 0.40 mg/dL 0.0-1.0 N SGOT/AST (test code = AST) 15 IUnit/L 15-37 N SGPT/ALT (test code = ALT) 13 IUnit/L 12-78 N ALKALINE PHOSPHATASE TOTAL (test code = ALKP) 71 IUnit/L 45-117 N Note change in reference range due to change in reagent. COMPREHENSIVE METABOLIC [id number] 12:41:00* Test Item Value Reference Range Interpretation Comments SODIUM (test code = NA) 138 mmol/L 136-145 N POTASSIUM (test code = K) 4.0 mmol/L 3.5-5.1 N CHLORIDE (test code = CL) 108.0 mmol/L 98-107 H CARBON DIOXIDE (test code = CO2) mmol/L 21-32 ANION GAP (test code = GAP) 10-20 GLUCOSE (test code = GLU) mg/dL 74-106 BLOOD UREA NITROGEN (test code = BUN) mg/dL 7-18 GLOMERULAR FILTRATION RATE (test code = GFR) mL/min >=60 CREATININE (test code = CREAT) mg/dL 0.55-1.02 BUN/CREATININE RATIO (test code = BUN/CREA) 10-20 TOTAL PROTEIN (test code = PROT) gram/dL 6.4-8.2 ALBUMIN (test code = ALB) g/dL 3.4-5.0 GLOBULIN (test code = GLOB) gram/dL 2.7-4.2 ALBUMIN/GLOBULIN RATIO (test code = A/G) 0.75-1.50 CALCIUM (test code = CA) mg/dL 8.5-10.1 BILIRUBIN TOTAL (test code = BILT) mg/dL 0.0-1.0 SGOT/AST (test code = AST) IUnit/L 15-37 SGPT/ALT (test code = ALT) IUnit/L 12-78 ALKALINE PHOSPHATASE TOTAL (test code = ALKP) IUnit/L 45-117 CBC W/AUTO [id number] 12:34:00* Test Item Value Reference Range Interpretation Comments WHITE BLOOD CELL (test code = WBC) 12.2 K/mm3 4.5-12.5 N RED BLOOD CELL (test code = RBC) 3.91 mill/mm3 3.7-5.2 N HEMOGLOBIN (test code = HGB) 11.2 gram/dL 11.5-15.5 L HEMATOCRIT (test code = HCT) 35.4 % 36.0-46.0 L MEAN CELL VOLUME (test code = MCV) 90.5 fL 80-98 N MEAN CELL HGB (test code = MCH) 28.6 picogram 27.0-33.0 N MEAN CELL HGB CONCETRATION (test code = MCHC) 31.6 gram/dL 33.0-36. 0 L RED CELL DISTRIBUTION WIDTH (test code = RDW) 13.4 % 11.6-16. 2 N RED CELL DISTRIBUTION WIDTH SD (test code = RDW-SD) 45.1 fL 37 .0-51.0 N PLATELET COUNT (test code = PLT) 571 K/mm3 150-450 H MEAN PLATELET VOLUME (test code = MPV) 10.0 fL 6.7-11.0 N NEUTROPHIL % (test code = NT%) 71.5 % 39.0-69.0 H IMMATURE GRANULOCYTE % (test code = IG%) 0.4 % 0.0-5.0 N LYMPHOCYTE % (test code = LY%) 17.7 % 25.0-55.0 L MONOCYTE % (test code = MO%) 7.2 % 0.0-10.0 N EOSINOPHIL % (test code = EO%) 2.4 % 0.0-5.0 N BASOPHIL % (test code = BA%) 0.8 % 0.0-1.0 N NUCLEATED RBC % (test code = NRBC%) 0.2 % 0-0 H NEUTROPHIL # (test code = NT#) 8.75 K/mm3 1.8-7.7 H IMMATURE GRANULOCYTE # (test code = IG#) 0.05 x10 3/uL 0-0.03 H LYMPHOCYTE # (test code = LY#) 2.17 K/mm3 1.0-5.0 N MONOCYTE # (test code = MO#) 0.88 K/mm3 0-0.8 H EOSINOPHIL # (test code = EO#) 0.29 K/mm3 0.0-0.5 N BASOPHIL # (test code = BA#) 0.10 K/mm3 0.0-0.2 N NUCLEATED RBC # (test code = NRBC#) 0.02 K/mm3 0.0-0.1 N CHEST 2 [id number] 17:00:00 [facility] [address] [address] Patient Name: GABBIE TOBIN MR #: [id number] : 1955 Age/Sex: 62/F Req #: [id number] Adm Physician: Ordered by: PRISCILLA ARRINGTON MD Report #: [id number] Location: OR Room/Bed: Procedure: [id number] DX/CHEST 2 VIEWS Exam Date: 09/21/18 Exam Time: 1538 REPORT STATUS: Signed EXAM INATION: CHEST 2 VIEWS INDICATION: PREOP COPD ASTHMA COMPARISON: Chest radiograph 03/15/2018; abdominal CT 09/20/2018 FINDINGS: PA and lateral views TUBES and LINES: Right chest wall chemotherapy port with rig ht IJ central venous catheter, tip in the mid SVC.. LUNGS: Lungs are wel l inflated. Calcified granuloma in the left lower lobe. There is mild prominen ce of the central pulmonary vasculature, consistent with pulmonary venous jada estion. PLEURA: No pleural effusion or pneumothorax. HEART AND MEDIAS TINUM: Cardiac size is mildly enlarged. BONES AND SOFT TISSUES: No ac catawba osseous lesion. Soft tissues are unremarkable. UPPER ABDOMEN: Emboli zation coils within a left renal artery aneurysm in the left upper abdomen, al so seen on abdominal CT 09/20/2018. IMPRESSION: Stable mild cardiom egaly and pulmonary vascular congestion. Signed by: Anand Segal MD o n 09/21/2018 5:04 PM Dictated By: ANAND SEGAL DO Electronically Kailey d By: ANAND SEGAL DO on 09/21/181703 Transcribed By: ALEXIA on 09/21/181703 COPY TO: PRISCILLA ARRINGTON MD CT ABDOMEN/PELVIS WO 2018-09-20 18:22:00 [facility] [address] [address] Patient Name: GABBIE TOBIN MR #: [id number] : 1955 Age/Sex: 62/F Req #: [id number] Adm Physician: Ordered by: AN POWELL MD Report #: [id number] Location: CT Room/Bed: Procedure: [id number] CT/ CT ABDOMEN/PELVIS WO Exam Date: 09/20/18 Exam Time: 1655 REPORT STATUS: Signed EXAM: CT Abdomen and Pelvis WITHOUT contrast INDICATION: CALCULUS OF KIDNEY CO MPARISON: Abdominal radiograph 05/25/2018, Abdominal CT 03/15/2018. TECHNIQUE: A bdomen and pelvis were scanned utilizing a multidetector helical scanner from the lung base to the pubic symphysis without administration of IV contrast. Ab sence of intravenous contrast decreases sensitivity for detection of focal les ions and vascular pathology. Coronal and sagittal reformations were obtained. Stone protocol is performed. IV CONTRAST: None ORAL CONTRAST: None COMPLICATIONS: None RADIATION DOSE: Total DLP: 1771 mGy*cm Estimated effective dose: (DLP x 0.015 x size factor) mSv CTDIvol has been reviewed. It is below the limits set by the Radiation Protoc ol Committee (RPC). Dose modulation, iterative reconstruction, and/or belia ght based adjustment of the mA/kV was utilized to reduce the radiation dose to as low as reasonably achievable. FINDINGS: LINES and TUBES: The le ft nephroureteral stent has been removed. LOWER THORAX: Coronary artery ca lcifications and aortic valve calcifications. Stable calcified granuloma in th e left lower lobe. An additional tiny calcified granuloma in the lingula. HEPATOBILIARY: Diffuse decreased hepatic attenuation. No focal hepatic lesio ns. No biliary ductal dilation. GALLBLADDER: Surgical changes of cholecyst ectomy. SPLEEN: No splenomegaly. PANCREAS: No focal masses or ductal dilatation. ADRENALS: No adrenal nodules KIDNEYS/URETERS: Unchan ged appearance of the surgical changes of right renal fossa. Stable 2.4 cm per ipherally calcified aneurysm at the superior aspect of the left renal hilum, w ith internal curvilinear densities consistent with embolization coils. Mild le ft renal parenchymal volume loss. No hydronephrosis. No stones. GI TRACT: No abnormal distention, wall thickening, or evidence of bowel obstruction. Appendix is not clearly identified. There is however no fat stranding or adeno carito in the right lower quadrant to suggest appendicitis. PELVIC ORGANS/BL ADDER: The uterus is absent. No adnexal abnormalities. LYMPH NODES: No lymp hadenopathy. VESSELS: There is mild atherosclerotic disease in the aorta an d major arterial branches. PERITONEUM / RETROPERITONEUM: No free air or f luid. BONES: Degenerative changes in the spine.. SOFT TISSUES: Chronic calcifications subcutaneous soft tissues of the right flank. IMPRESSION: 1. No left hydronephrosis or obstructing calculus. A left ne phroureteral stent has been removed since 05/28/2018. 2. Stable changes of r ight nephrectomy. 3. 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 4. Hepatic steatosis. Signed by: Anand Segal MD on 09/20/2018 6:45 PM Dictated By: ANAND SEGAL DO Electronically S igned By: ANAND SEGAL DO on 09/20/181844 Transcribed By: ALEXIA on 09/20 COPY TO: AN POWELL MD [id number] 12:17:00* Test Item Value Reference Range Interpretation Comments GLUBED (test code = GLUBED) 109 mg/dL 74-106 H Performed by certified crew boat operator at [facility] [id number] 09:35:00* Test Item Value Reference Range Interpretation Comments GLUBED (test code = GLUBED) 89 mg/dL 74-106 N Performed by certified crew boat operator at [facility] [id number] 21:45:00* Test Item Value Reference Range Interpretation Comments GLUCHESTER (test code = GLUBED) 134 mg/dL 74-106 H Performed by certified crew boat operator at [facility] - XR CHEST 1 [id number] 14:42:00 FAX: Sean Guadarrama MD [phone] [place]: St: ADM FAX: Edith Villatoro MD [phone] FAX: Kylee Braun MD [phone] Name: GABBIE TOBIN [facility] : 1955 Age/S: 62/F [address] [facility] Unit #: [id number] Loc: V.3045 [place] [address] Phys: Edith Lyman MD Acct: [id number] Dis Date: Status: ADM IN ONE #: [phone] Exam Date: 09/15/2018 1420 FAX #: [phone] Reason: LINE PLACEMENT EXAMS: CPT CODE: [id number] XR CHEST 1 V 48660 REASON FOR EXAM: LINE PLACEMENT EXAM ORDER DATE: 09/15/2018 12:00 AM Ordering MChandler: Edith Lyman MD PROCEDURE: - XR CHEST 1 V COMPARISON: FINDINGS: Portable AP frontal view of the chest obtained at 2:28 PM shows clear lungs without evidence of cons olidation. There is no evidence of effusion. The heart size is minimally e nlarged. Pulmonary vasculatures are unremarkable. IMPRESS ION: Right IJ Port-A-Cath tip is in the SVC at 1442 Reported and signed by: Ruben Hunter M.D. CC: Sean Guadarrama MD; Edith Lyman MD; Kylee Dia MD Technologist: YAW RICHARDS RT(R) Trnscrd Date/Time/By: 09/15/2018 (1440) : By: Bradley Orig Randolph int D/T: S: 09/15/2018 (6030) PAGE 1 Signed Report COMPREHENSIVE METABOLIC PANEL 2018-09-15 11:44:00* Test Item Value Reference Range Interpretation Comments SODIUM (test code = NA) 140 mmol/L 136-145 N POTASSIUM (test code = K) 4.1 mmol/L 3.5-5.1 N CHLORIDE (test code = CL) 109.0 mmol/L 98-107 H CARBON DIOXIDE (test code = CO2) 22.0 mmol/L 21-32 N ANION GAP (test code = GAP) 13.1 10-20 N GLUCOSE (test code = GLU) 85 mg/dL 74-106 N BLOOD UREA NITROGEN (test code = BUN) 32 mg/dL 7-18 H GLOMERULAR FILTRATION RATE (test code = GFR) 19 mL/min >=60 Estimated GFR by using Modified MDRD formula.Chronic kidney disease is defined as either kidney damageor GFR <60 mL/min/1.73 m2 for >3 months. CREATININE (test code = CREAT) 2.60 mg/dL 0.55-1.02 H Note change in reference range due to change in reagent. BUN/CREATININE RATIO (test code = BUN/CREA) 12.3 10-20 N TOTAL PROTEIN (test code = PROT) 6.6 gram/dL 6.4-8.2 N ALBUMIN (test code = ALB) 2.8 g/dL 3.4-5.0 L GLOBULIN (test code = GLOB) 3.8 gram/dL 2.7-4.2 N ALBUMIN/GLOBULIN RATIO (test code = A/G) 0.7 0.75-1.50 L CALCIUM (test code = CA) 8.9 mg/dL 8.5-10.1 N BILIRUBIN TOTAL (test code = BILT) 0.30 mg/dL 0.0-1.0 N SGOT/AST (test code = AST) 13 IUnit/L 15-37 L SGPT/ALT (test code = ALT) 14 IUnit/L 12-78 N ALKALINE PHOSPHATASE TOTAL (test code = ALKP) 63 IUnit/L 45-117 N Note change in reference range due to change in reagent. COMPREHENSIVE METABOLIC [id number] 11:22:00* Test Item Value Reference Range Interpretation Comments SODIUM (test code = NA) 140 mmol/L 136-145 N POTASSIUM (test code = K) 4.1 mmol/L 3.5-5.1 N CHLORIDE (test code = CL) 109.0 mmol/L 98-107 H CARBON DIOXIDE (test code = CO2) mmol/L 21-32 ANION GAP (test code = GAP) 10-20 GLUCOSE (test code = GLU) mg/dL 74-106 BLOOD UREA NITROGEN (test code = BUN) mg/dL 7-18 GLOMERULAR FILTRATION RATE (test code = GFR) mL/min >=60 CREATININE (test code = CREAT) mg/dL 0.55-1.02 BUN/CREATININE RATIO (test code = BUN/CREA) 10-20 TOTAL PROTEIN (test code = PROT) gram/dL 6.4-8.2 ALBUMIN (test code = ALB) g/dL 3.4-5.0 GLOBULIN (test code = GLOB) gram/dL 2.7-4.2 ALBUMIN/GLOBULIN RATIO (test code = A/G) 0.75-1.50 CALCIUM (test code = CA) mg/dL 8.5-10.1 BILIRUBIN TOTAL (test code = BILT) mg/dL 0.0-1.0 SGOT/AST (test code = AST) IUnit/L 15-37 SGPT/ALT (test code = ALT) IUnit/L 12-78 ALKALINE PHOSPHATASE TOTAL (test code = ALKP) IUnit/L 45-117 CBC W/AUTO [id number] 10:43:00* Test Item Value Reference Range Interpretation Comments WHITE BLOOD CELL (test code = WBC) 12.9 K/mm3 4.5-12.5 H RED BLOOD CELL (test code = RBC) 3.41 mill/mm3 3.7-5.2 L HEMOGLOBIN (test code = HGB) 9.6 gram/dL 11.5-15.5 L HEMATOCRIT (test code = HCT) 31.9 % 36.0-46.0 L MEAN CELL VOLUME (test code = MCV) 93.5 fL 80-98 N MEAN CELL HGB (test code = MCH) 28.2 picogram 27.0-33.0 N MEAN CELL HGB CONCETRATION (test code = MCHC) 30.1 gram/dL 33.0-36. 0 L RED CELL DISTRIBUTION WIDTH (test code = RDW) 15.0 % 11.6-16. 2 N RED CELL DISTRIBUTION WIDTH SD (test code = RDW-SD) 51.8 fL 37 .0-51.0 H PLATELET COUNT (test code = PLT) 516 K/mm3 150-450 H MEAN PLATELET VOLUME (test code = MPV) 10.8 fL 6.7-11.0 N NEUTROPHIL % (test code = NT%) 60.0 % 39.0-69.0 N IMMATURE GRANULOCYTE % (test code = IG%) 0.5 % 0.0-5.0 N LYMPHOCYTE % (test code = LY%) 27.7 % 25.0-55.0 N MONOCYTE % (test code = MO%) 8.0 % 0.0-10.0 N EOSINOPHIL % (test code = EO%) 3.3 % 0.0-5.0 N BASOPHIL % (test code = BA%) 0.5 % 0.0-1.0 N NUCLEATED RBC % (test code = NRBC%) 0.2 % 0-0 H NEUTROPHIL # (test code = NT#) 7.72 K/mm3 1.8-7.7 H IMMATURE GRANULOCYTE # (test code = IG#) 0.06 x10 3/uL 0-0.03 H LYMPHOCYTE # (test code = LY#) 3.57 K/mm3 1.0-5.0 N MONOCYTE # (test code = MO#) 1.03 K/mm3 0-0.8 H EOSINOPHIL # (test code = EO#) 0.42 K/mm3 0.0-0.5 N BASOPHIL # (test code = BA#) 0.07 K/mm3 0.0-0.2 N NUCLEATED RBC # (test code = NRBC#) 0.03 K/mm3 0.0-0.1 N MANUAL DIFF REQUIRED (test code = MDIFF) NO PROTHROMBIN [id number] 23:53:00* Test Item Value Reference Range Interpretation Comments PROTHROMBIN TIME PATIENT (test code = PTP) 12.6 seconds 9.0-14.0 N INTERNATIONAL NORMAL RATIO (test code = INR) 1.1 0.8-1.2 N The therapeutic range for oral anticoagulant therapy formost indications is an international normalized ratio (INR)of between 2.0 and 3.0. The recommended therapeutic INRrange for various clinical situations is listed below: Clinical Situation INR range Pulmonary e mbolism treatment (2.0-3.0)Venous thrombosis treatmentVenous thrombosis prophylaxis (high risk surgery)Prevention of systemic embolism from: Acute myocardial infarction Valvular heart disease Atrial fibrillation Mechanical prosthetic heart valves (2.5-3.5) IS PATIENT ON ANTICOAGULANTS? NCBC W/AUTO [id number] 23:51:00* Test Item Value Reference Range Interpretation Comments WHITE BLOOD CELL (test code = WBC) 14.6 K/mm3 4.5-12.5 H RED BLOOD CELL (test code = RBC) 3.55 mill/mm3 3.7-5.2 L HEMOGLOBIN (test code = HGB) 9.9 gram/dL 11.5-15.5 L HEMATOCRIT (test code = HCT) 33.0 % 36.0-46.0 L MEAN CELL VOLUME (test code = MCV) 93.0 fL 80-98 N MEAN CELL HGB (test code = MCH) 27.9 picogram 27.0-33.0 N MEAN CELL HGB CONCETRATION (test code = MCHC) 30.0 gram/dL 33.0-36. 0 L RED CELL DISTRIBUTION WIDTH (test code = RDW) 14.7 % 11.6-16. 2 N RED CELL DISTRIBUTION WIDTH SD (test code = RDW-SD) 50.3 fL 37 .0-51.0 N PLATELET COUNT (test code = PLT) 548 K/mm3 150-450 H MEAN PLATELET VOLUME (test code = MPV) 11.2 fL 6.7-11.0 H NEUTROPHIL % (test code = NT%) 63.8 % 39.0-69.0 N IMMATURE GRANULOCYTE % (test code = IG%) 0.6 % 0.0-5.0 N LYMPHOCYTE % (test code = LY%) 24.1 % 25.0-55.0 L MONOCYTE % (test code = MO%) 8.6 % 0.0-10.0 N EOSINOPHIL % (test code = EO%) 2.4 % 0.0-5.0 N BASOPHIL % (test code = BA%) 0.5 % 0.0-1.0 N NUCLEATED RBC % (test code = NRBC%) 0.2 % 0-0 H NEUTROPHIL # (test code = NT#) 9.30 K/mm3 1.8-7.7 H IMMATURE GRANULOCYTE # (test code = IG#) 0.09 x10 3/uL 0-0.03 H LYMPHOCYTE # (test code = LY#) 3.52 K/mm3 1.0-5.0 N MONOCYTE # (test code = MO#) 1.25 K/mm3 0-0.8 H EOSINOPHIL # (test code = EO#) 0.35 K/mm3 0.0-0.5 N BASOPHIL # (test code = BA#) 0.07 K/mm3 0.0-0.2 N NUCLEATED RBC # (test code = NRBC#) 0.03 K/mm3 0.0-0.1 N MANUAL DIFF REQUIRED (test code = MDIFF) NO COMPREHENSIVE METABOLIC [id number] 23:47:00* Test Item Value Reference Range Interpretation Comments SODIUM (test code = NA) 141 mmol/L 136-145 N POTASSIUM (test code = K) 4.2 mmol/L 3.5-5.1 N CHLORIDE (test code = CL) 107.0 mmol/L 98-107 N CARBON DIOXIDE (test code = CO2) 27.0 mmol/L 21-32 N ANION GAP (test code = GAP) 11.2 10-20 N GLUCOSE (test code = GLU) 96 mg/dL 74-106 N BLOOD UREA NITROGEN (test code = BUN) 29 mg/dL 7-18 H GLOMERULAR FILTRATION RATE (test code = GFR) 17 mL/min >=60 Estimated GFR by using Modified MDRD formula.Chronic kidney disease is defined as either kidney damageor GFR <60 mL/min/1.73 m2 for >3 months. CREATININE (test code = CREAT) 2.80 mg/dL 0.55-1.02 H Note change in reference range due to change in reagent. BUN/CREATININE RATIO (test code = BUN/CREA) 10.4 10-20 N TOTAL PROTEIN (test code = PROT) 7.5 gram/dL 6.4-8.2 N ALBUMIN (test code = ALB) 3.2 g/dL 3.4-5.0 L GLOBULIN (test code = GLOB) 4.3 gram/dL 2.7-4.2 H ALBUMIN/GLOBULIN RATIO (test code = A/G) 0.7 0.75-1.50 L CALCIUM (test code = CA) 9.0 mg/dL 8.5-10.1 N BILIRUBIN TOTAL (test code = BILT) 0.30 mg/dL 0.0-1.0 N SGOT/AST (test code = AST) 14 IUnit/L 15-37 L SGPT/ALT (test code = ALT) 18 IUnit/L 12-78 N ALKALINE PHOSPHATASE TOTAL (test code = ALKP) 83 IUnit/L 45-117 N Note change in reference range due to change in reagent. COMPREHENSIVE METABOLIC [id number] 23:41:00* Test Item Value Reference Range Interpretation Comments SODIUM (test code = NA) 141 mmol/L 136-145 N POTASSIUM (test code = K) 4.2 mmol/L 3.5-5.1 N CHLORIDE (test code = CL) 107.0 mmol/L 98-107 N CARBON DIOXIDE (test code = CO2) mmol/L 21-32 ANION GAP (test code = GAP) 10-20 GLUCOSE (test code = GLU) mg/dL 74-106 BLOOD UREA NITROGEN (test code = BUN) mg/dL 7-18 GLOMERULAR FILTRATION RATE (test code = GFR) mL/min >=60 CREATININE (test code = CREAT) mg/dL 0.55-1.02 BUN/CREATININE RATIO (test code = BUN/CREA) 10-20 TOTAL PROTEIN (test code = PROT) gram/dL 6.4-8.2 ALBUMIN (test code = ALB) g/dL 3.4-5.0 GLOBULIN (test code = GLOB) gram/dL 2.7-4.2 ALBUMIN/GLOBULIN RATIO (test code = A/G) 0.75-1.50 CALCIUM (test code = CA) mg/dL 8.5-10.1 BILIRUBIN TOTAL (test code = BILT) mg/dL 0.0-1.0 SGOT/AST (test code = AST) IUnit/L 15-37 SGPT/ALT (test code = ALT) IUnit/L 12-78 ALKALINE PHOSPHATASE TOTAL (test code = ALKP) IUnit/L 45-117 Urine [id number] 06:24:00* Test Item Value Reference Range Interpretation Comments Urine Culture (test code = 630-4) Organism: [facility]JAN ALBICANS [facility] [id number] 06:11:00* Test Item Value Reference Range Interpretation Comments Sodium Level (test code = 2951-2) 138 136-145 [facility]Potassium Wkdet7136-38-38 06:11:00* Test Item Value Reference Range Interpretation Comments Potassium Level (test code = 2823-3) 4.6 3.5-5.1 [facility] HospitalChloride Cyeji2852-97-29 06:11:00* Test Item Value Reference Range Interpretation Comments Chloride Level (test code = 2075-0) 109 98-107 H [facility] HospitalCarbon Dioxide [id number] 06:11:00* Test Item Value Reference Range Interpretation Comments Carbon Dioxide Level (test code = 2028-9) 21 22-29 L [facility] HospitalAnion [id number] 06:11:00* Test Item Value Reference Range Interpretation Comments Anion Gap (test code = 46919-9) 12.6 8-16 [facility] HospitalBlood Urea Ujjbofhw2195-95-89 06:11:00* Test Item Value Reference Range Interpretation Comments Blood Urea Nitrogen (test code = 3094-0) 48 7-26 H [facility] HospitalCreatinine2019-03-10 06:11:00* Test Item Value Reference Range Interpretation Comments Creatinine (test code = 2160-0) 3.53 0.57-1.11 H [facility] HospitalBUN/Creatinine Shliz3962-10-20 06:11:00* Test Item Value Reference Range Interpretation Comments BUN/Creatinine Ratio (test code = 3097-3) 14 6-25 [facility] HospitalEstimat Glomerular Filtration Rate 2018-05-30 06:11:00* Test Item Value Reference Range Interpretation Comments Estimat Glomerular Filtration Rate (test code = 489581560) 13 >60 L Ranges were taken from the National Kidney Disease Education Program and the [facility] [employer] literature.Reference ranges:60 or greater: Dcagie70-13 ( for 3 consecutive months): Chronic kidney disease 15 or less: Kidney failureHouston Methodist Willowbrook HospitalGlucose Mjyjv1122-83-60 06:11:00* Test Item Value Reference Range Interpretation Comments Glucose Level (test code = XJF7214) 121 74-118 H [facility] HospitalCalcium Nvzkq9766-63-41 06:11:00* Test Item Value Reference Range Interpretation Comments Calcium Level (test code = 73864-3) 9.0 8.4-10.2 [facility] Centerodium Pqccu8663-51-52 06:11:00* Test Item Value Reference Range Interpretation Comments Sodium Level (test code = 2951-2) 138 136-145 [facility] HospitalPotassium Uiity1691-82-03 06:11:00* Test Item Value Reference Range Interpretation Comments Potassium Level (test code = 2823-3) 4.6 3.5-5.1 [facility] HospitalChloride Hzfwl4052-59-02 06:11:00* Test Item Value Reference Range Interpretation Comments Chloride Level (test code = 2075-0) 109 98-107 H [facility] HospitalCarbon Dioxide Qbetj9566-61-89 06:11:00* Test Item Value Reference Range Interpretation Comments Carbon Dioxide Level (test code = 2028-9) 21 22-29 L [facility] HospitalAnion Jbt0289-72-43 06:11:00* Test Item Value Reference Range Interpretation Comments Anion Gap (test code = 13328-7) 12.6 8-16 [facility] HospitalBlood Urea Jubflhbo4895-30-44 06:11:00* Test Item Value Reference Range Interpretation Comments Blood Urea Nitrogen (test code = 3094-0) 48 7-26 H [facility] HospitalCreatinine2019-03-10 06:11:00* Test Item Value Reference Range Interpretation Comments Creatinine (test code = 2160-0) 3.53 0.57-1.11 H [facility] HospitalBUN/Creatinine Mcyvv9156-57-99 06:11:00* Test Item Value Reference Range Interpretation Comments BUN/Creatinine Ratio (test code = 3097-3) 14 6-25 [facility] HospitalEstimat Glomerular Filtration Rate 2018-05-30 06:11:00* Test Item Value Reference Range Interpretation Comments Estimat Glomerular Filtration Rate (test code = 693273884) 13 >60 L Ranges were taken from the National Kidney Disease Education Program and the [facility] literature.Reference ranges:60 or greater: Lssjfp88-66 ( for 3 consecutive months): Chronic kidney disease 15 or less: Kidney failureHouston Methodist Willowbrook HospitalGlucose Hjqps6331-67-21 06:11:00* Test Item Value Reference Range Interpretation Comments Glucose Level (test code = IDI8773) 121 74-118 H [facility] HospitalCalcium Opqqr9641-17-70 06:11:00* Test Item Value Reference Range Interpretation Comments Calcium Level (test code = 45247-0) 9.0 8.4-10.2 [facility] HospitalWhite Blood Aglzs1226-50-10 05:55:00* Test Item Value Reference Range Interpretation Comments White Blood Count (test code = 6690-2) 18.99 4.8-10.8 H [facility] HospitalRed Blood Ushzl3615-76-06 05:55:00* Test Item Value Reference Range Interpretation Comments Red Blood Count (test code = 789-8) 3.47 3.6-5.1 L [facility] HospitalHemoglobin2019-03-10 05:55:00* Test Item Value Reference Range Interpretation Comments Hemoglobin (test code = 95022-6) 9.6 12.0-16.0 L [facility] HospitalHematocrit2019-03-10 05:55:00* Test Item Value Reference Range Interpretation Comments Hematocrit (test code = 4544-3) 31.1 34.2-44.1 L [facility] HospitalMean Corpuscular Ytfrbl2523-25-69 05:55:00* Test Item Value Reference Range Interpretation Comments Mean Corpuscular Volume (test code = 787-2) 89.6 81-99 [facility] HospitalMean Corpuscular Uslnsjxilc8874-01-27 05:55:00* Test Item Value Reference Range Interpretation Comments Mean Corpuscular Hemoglobin (test code = 785-6) 27.7 28-32 L [facility] HospitalMean Corpuscular Hemoglobin Concent 2018-05-30 05:55:00* Test Item Value Reference Range Interpretation Comments Mean Corpuscular Hemoglobin Concent (test code = 786-4) 30.9 31-35 L [facility] HospitalRed Cell Distribution Qoghd9071-02-81 05:55:00* Test Item Value Reference Range Interpretation Comments Red Cell Distribution Width (test code = 86759-3) 15.9 11.7 -14.4 H [facility] HospitalPlatelet Maqyw0599-60-79 05:55:00* Test Item Value Reference Range Interpretation Comments Platelet Count (test code = 777-3) 615 140-360 H [facility] HospitalNeutrophils (%) (Auto)2018-05-30 05:55:00 * Test Item Value Reference Range Interpretation Comments Neutrophils (%) (Auto) (test code = 21748-3) 73.6 38.7-80.0 [facility] HospitalLymphocytes (%) (Auto)2018-05-30 05:55:00 * Test Item Value Reference Range Interpretation Comments Lymphocytes (%) (Auto) (test code = 736-9) 17.8 18.0-39.1 L [facility] HospitalMonocytes (%) (Auto)2018-05-30 05:55:00* Test Item Value Reference Range Interpretation Comments Monocytes (%) (Auto) (test code = 5905-5) 6.4 4.4-11.3 [facility] HospitalEosinophils (%) (Auto)2018-05-30 05:55:00 * Test Item Value Reference Range Interpretation Comments Eosinophils (%) (Auto) (test code = 713-8) 1.1 0.0-6.0 [facility] HospitalBasophils (%) (Auto)2018-05-30 05:55:00* Test Item Value Reference Range Interpretation Comments Basophils (%) (Auto) (test code = 706-2) 0.3 0.0-1.0 [facility] HospitalIM GRANULOCYTES %2018-05-30 05:55:00* Test Item Value Reference Range Interpretation Comments IM GRANULOCYTES % (test code = IM GRANULOCYTES %) 0.8 0.0- 1.0 [facility] HospitalNeutrophils # (Auto)2018-05-30 05:55:00* Test Item Value Reference Range Interpretation Comments Neutrophils # (Auto) (test code = 751-8) 14.0 2.1-6.9 H [facility] HospitalLymphocytes # (Auto)2018-05-30 05:55:00* Test Item Value Reference Range Interpretation Comments Lymphocytes # (Auto) (test code = 02810-5) 3.4 1.0-3.2 H [facility] HospitalMonocytes # (Auto)2018-05-30 05:55:00* Test Item Value Reference Range Interpretation Comments Monocytes # (Auto) (test code = 742-7) 1.2 0.2-0.8 H [facility] HospitalEosinophils # (Auto)2018-05-30 05:55:00* Test Item Value Reference Range Interpretation Comments Eosinophils # (Auto) (test code = 711-2) 0.2 0.0-0.4 [facility] HospitalBasophils # (Auto)2018-05-30 05:55:00* Test Item Value Reference Range Interpretation Comments Basophils # (Auto) (test code = 704-7) 0.1 0.0-0.1 [facility] HospitalAbsolute Immature Granulocyte (auto 2018-05-30 05:55:00* Test Item Value Reference Range Interpretation Comments Absolute Immature Granulocyte (auto (ortega t code = Absolute Immature Granulocyte (auto) 0.15 0-0.1 H [facility] HospitalWhite Blood Vbcks8223-58-06 05:55:00* Test Item Value Reference Range Interpretation Comments White Blood Count (test code = 6690-2) 18.99 4.8-10.8 H [facility] HospitalRed Blood Mgpkq0405-27-23 05:55:00* Test Item Value Reference Range Interpretation Comments Red Blood Count (test code = 789-8) 3.47 3.6-5.1 L [facility] HospitalHemoglobin2019-03-10 05:55:00* Test Item Value Reference Range Interpretation Comments Hemoglobin (test code = 53907-9) 9.6 12.0-16.0 L [facility] HospitalHematocrit2019-03-10 05:55:00* Test Item Value Reference Range Interpretation Comments Hematocrit (test code = 4544-3) 31.1 34.2-44.1 L [facility] HospitalMean Corpuscular Hfrtvi4316-23-04 05:55:00* Test Item Value Reference Range Interpretation Comments Mean Corpuscular Volume (test code = 787-2) 89.6 81-99 [facility] HospitalMean Corpuscular Ebnfjzfwjt2832-85-15 05:55:00* Test Item Value Reference Range Interpretation Comments Mean Corpuscular Hemoglobin (test code = 785-6) 27.7 28-32 L [facility] HospitalMean Corpuscular Hemoglobin Concent 2018-05-30 05:55:00* Test Item Value Reference Range Interpretation Comments Mean Corpuscular Hemoglobin Concent (test code = 786-4) 30.9 31-35 L [facility] HospitalRed Cell Distribution Qodbo8428-54-09 05:55:00* Test Item Value Reference Range Interpretation Comments Red Cell Distribution Width (test code = 29051-7) 15.9 11.7 -14.4 H [facility] HospitalPlatelet Bjmkw8845-86-25 05:55:00* Test Item Value Reference Range Interpretation Comments Platelet Count (test code = 777-3) 615 140-360 H [facility] HospitalNeutrophils (%) (Auto)2018-05-30 05:55:00 * Test Item Value Reference Range Interpretation Comments Neutrophils (%) (Auto) (test code = 51144-1) 73.6 38.7-80.0 [facility] HospitalLymphocytes (%) (Auto)2018-05-30 05:55:00 * Test Item Value Reference Range Interpretation Comments Lymphocytes (%) (Auto) (test code = 736-9) 17.8 18.0-39.1 L [facility] HospitalMonocytes (%) (Auto)2018-05-30 05:55:00* Test Item Value Reference Range Interpretation Comments Monocytes (%) (Auto) (test code = 5905-5) 6.4 4.4-11.3 [facility] HospitalEosinophils (%) (Auto)2018-05-30 05:55:00 * Test Item Value Reference Range Interpretation Comments Eosinophils (%) (Auto) (test code = 713-8) 1.1 0.0-6.0 [facility] HospitalBasophils (%) (Auto)2018-05-30 05:55:00* Test Item Value Reference Range Interpretation Comments Basophils (%) (Auto) (test code = 706-2) 0.3 0.0-1.0 [facility] HospitalIM GRANULOCYTES %2018-05-30 05:55:00* Test Item Value Reference Range Interpretation Comments IM GRANULOCYTES % (test code = IM GRANULOCYTES %) 0.8 0.0- 1.0 [facility] HospitalNeutrophils # (Auto)2018-05-30 05:55:00* Test Item Value Reference Range Interpretation Comments Neutrophils # (Auto) (test code = 751-8) 14.0 2.1-6.9 H [facility] HospitalLymphocytes # (Auto)2018-05-30 05:55:00* Test Item Value Reference Range Interpretation Comments Lymphocytes # (Auto) (test code = 97623-3) 3.4 1.0-3.2 H [facility] HospitalMonocytes # (Auto)2018-05-30 05:55:00* Test Item Value Reference Range Interpretation Comments Monocytes # (Auto) (test code = 742-7) 1.2 0.2-0.8 H [facility] HospitalEosinophils # (Auto)2018-05-30 05:55:00* Test Item Value Reference Range Interpretation Comments Eosinophils # (Auto) (test code = 711-2) 0.2 0.0-0.4 [facility] HospitalBasophils # (Auto)2018-05-30 05:55:00* Test Item Value Reference Range Interpretation Comments Basophils # (Auto) (test code = 704-7) 0.1 0.0-0.1 [facility] HospitalAbsolute Immature Granulocyte (auto 2018-05-30 05:55:00* Test Item Value Reference Range Interpretation Comments Absolute Immature Granulocyte (auto (ortega t code = Absolute Immature Granulocyte (auto) 0.15 0-0.1 H [facility] HospitalUrine Ywkosih8566-05-68 10:51:00* Test Item Value Reference Range Interpretation Comments Urine Culture (test code = 630-4) Organism: YEAST SPECIES [facility] HospitalUrine Uyhvgok6386-65-16 08:05:00* Test Item Value Reference Range Interpretation Comments Urine Culture (test code = 630-4) Organism: NIRANJAN ALBICANS [facility] HospitalUrine Ubwfkug9631-71-75 08:05:00* Test Item Value Reference Range Interpretation Comments Urine Culture (test code = 630-4) Organism: NIRANJAN ALBICANS [facility] HospitalProthrombin Trme8236-40-09 06:44:00* Test Item Value Reference Range Interpretation Comments Prothrombin Time (test code = 5902-2) 20.0 11.9-14.5 H [facility] HospitalProthromb Time International Ratio 2018-05-27 06:44:00* Test Item Value Reference Range Interpretation Comments Prothromb Time International Ratio (test code = 6301-6) 1.64 Oral Anticoagulant Therapy INR Values:1. Low Intensity Therapy 1.5 - 2.02 . Moderate Intensity Therapy 2.0 - 3.03. High Intensity Therapy(1) 2.5 - 3. 54. High Intensity Therapy(2) 3.0 - 4.05. Panic Value INR > 5.0 [facility] HospitalProthrombin Hftj1299-49-10 06:44:00* Test Item Value Reference Range Interpretation Comments Prothrombin Time (test code = 5902-2) 20.0 11.9-14.5 H [facility] HospitalProthromb Time International Ratio 2018-05-27 06:44:00* Test Item Value Reference Range Interpretation Comments Prothromb Time International Ratio (test code = 6301-6) 1.64 Oral Anticoagulant Therapy INR Values:1. Low Intensity Therapy 1.5 - 2.02 . Moderate Intensity Therapy 2.0 - 3.03. High Intensity Therapy(1) 2.5 - 3. 54. High Intensity Therapy(2) 3.0 - 4.05. Panic Value INR > 5.0 [facility] HospitalABDOMEN-1VIEW (KUB)2018-05-25 10:23:00 [place] [address] Patient Name: GABBIE TOIBN MR #: [id number] : 1955 Age/Sex: 62/F Req #: [id number] Adm Physician: KYLEE ACOSTA MD Ordered by: AN POWELL MD Report #: [id number] Location: [facility] Room/Bed: [facility] Procedure: [id number] DX/ ABDOMEN-1VIEW (KUB) Exam Date: 05/25/18 Exam Time: 0 922 REPORT STATUS: Signed Abdome n, two views dated 05/25/2018 at 9:22 AM. History: Left ureteral stent. Comparison: CT scan of the abdomen and pelvis dated 03/15/2018 Findings: Th ere is a left ureteral stent present without evidence of adjacent encrusted st ones. Multiple clips in the right upper quadrant and right renal area are note d. 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 Multiple pelvic calcifications appear compatible with phleboliths. The intestinal gas pattern is nonobstructive. There no masses. Ri ght gluteal calcification secondary to injection granulomas. The osseous struc tures reveal degenerative changes. IMPRESSION: No acute abdominal abno rmality. Signed by: Dr. Kim Villar DO on 05/25/2018 10:35 AM Dicta richie By: KIM VILLAR DO 1035 Transcribed By: ALEXIA on 05/25/18 1035 COPY TO: AN POWELL MD Magnesium Qegts2699-62-86 07:15:00* Test Item Value Reference Range Interpretation Comments Magnesium Level (test code = 68806-1) 1.6 1.3-2.1 [facility] HospitalMagnesium Jutcz3193-32-33 07:15:00* Test Item Value Reference Range Interpretation Comments Magnesium Level (test code = 19823-5) 1.6 1.3-2.1 [facility] HospitalTotal Iabmvsopz5369-44-37 07:05:00* Test Item Value Reference Range Interpretation Comments Total Bilirubin (test code = 1975-2) 0.2 0.2-1.2 [facility] HospitalAspartate Amino Transf (AST/SGOT) 2018-05-25 07:05:00* Test Item Value Reference Range Interpretation Comments Aspartate Amino Transf (AST/SGOT) (test code = Aspartate Amino Transf (AST/SGOT)) 11 5-34 [facility] HospitalAlanine Aminotransferase (ALT/SGPT) 2018-05-25 07:05:00* Test Item Value Reference Range Interpretation Comments Alanine Aminotransferase (ALT/SGPT) (test code = 1742-6) 9 0-55 [facility] HospitalTotal Kvxdroo3726-02-22 07:05:00* Test Item Value Reference Range Interpretation Comments Total Protein (test code = 2885-2) 6.5 6.5-8.1 [facility] HospitalAlbumin2019-03-05 07:05:00* Test Item Value Reference Range Interpretation Comments Albumin (test code = 1751-7) 2.7 3.5-5.0 L [facility] HospitalGlobulin2019-03-05 07:05:00* Test Item Value Reference Range Interpretation Comments Globulin (test code = 78777-3) 3.8 2.3-3.5 H [facility] HospitalAlbumin/Globulin Fbpkd2505-71-25 07:05:00 * Test Item Value Reference Range Interpretation Comments Albumin/Globulin Ratio (test code = 1759-0) 0.7 0.8-2.0 L [facility] HospitalAlkaline Mhiopfivihw8052-86-05 07:05:00* Test Item Value Reference Range Interpretation Comments Alkaline Phosphatase (test code = 6768-6) 61 40-150 [facility] HospitalTotal Bzazoqzxe0312-23-76 07:05:00* Test Item Value Reference Range Interpretation Comments Total Bilirubin (test code = 1975-2) 0.2 0.2-1.2 [facility] HospitalAspartate Amino Transf (AST/SGOT) 2018-05-25 07:05:00* Test Item Value Reference Range Interpretation Comments Aspartate Amino Transf (AST/SGOT) (test code = Aspartate Amino Transf (AST/SGOT)) 11 5-34 [facility] HospitalAlanine Aminotransferase (ALT/SGPT) 2018-05-25 07:05:00* Test Item Value Reference Range Interpretation Comments Alanine Aminotransferase (ALT/SGPT) (test code = 1742-6) 9 0-55 [facility] HospitalTotal Ksoflah4877-03-44 07:05:00* Test Item Value Reference Range Interpretation Comments Total Protein (test code = 2885-2) 6.5 6.5-8.1 [facility] HospitalAlbumin2019-03-05 07:05:00* Test Item Value Reference Range Interpretation Comments Albumin (test code = 1751-7) 2.7 3.5-5.0 L [facility] HospitalGlobulin2019-03-05 07:05:00* Test Item Value Reference Range Interpretation Comments Globulin (test code = 59355-8) 3.8 2.3-3.5 H [facility] HospitalAlbumin/Globulin Wubod4662-42-30 07:05:00 * Test Item Value Reference Range Interpretation Comments Albumin/Globulin Ratio (test code = 1759-0) 0.7 0.8-2.0 L [facility] HospitalAlkaline Lwxpvaeweei3247-48-55 07:05:00* Test Item Value Reference Range Interpretation Comments Alkaline Phosphatase (test code = 6768-6) 61 40-150 [facility] HospitalUrine [id number] 20:13:00* Test Item Value Reference Range Interpretation Comments Urine WBC (test code = 5821-4) >50 0-5 H [facility] HospitalUrine [id number] 20:13:00* Test Item Value Reference Range Interpretation Comments Urine RBC (test code = 56321-8) 6-10 0-5 H [facility] HospitalUrine Uxmhfuts7451-26-52 20:13:00* Test Item Value Reference Range Interpretation Comments Urine Bacteria (test code = 95518-2) FEW NONE [facility] HospitalUrine Epithelial Bhssu7584-67-37 20:13:00 * Test Item Value Reference Range Interpretation Comments Urine Epithelial Cells (test code = 21582-4) RARE NONE [facility] HospitalUrine [id number] 20:13:00* Test Item Value Reference Range Interpretation Comments Urine WBC (test code = 5821-4) >50 0-5 H [facility] HospitalUrine [id number] 20:13:00* Test Item Value Reference Range Interpretation Comments Urine RBC (test code = 40195-3) 6-10 0-5 H [facility] HospitalUrine Hbbkdrsu5034-37-54 20:13:00* Test Item Value Reference Range Interpretation Comments Urine Bacteria (test code = 33888-7) FEW NONE [facility] HospitalUrine Epithelial Mqtas8762-00-46 20:13:00 * Test Item Value Reference Range Interpretation Comments Urine Epithelial Cells (test code = 10390-9) RARE NONE [facility] HospitalUrine Itwcd3760-71-40 19:58:00* Test Item Value Reference Range Interpretation Comments Urine Color (test code = 5778-6) YELLOW YELLOW [facility] HospitalUrine Jraporv4871-75-92 19:58:00* Test Item Value Reference Range Interpretation Comments Urine Clarity (test code = 56549-2) CLOUDY CLEAR H [facility] Specific Izfcizu7060-48-04 19:58:00 * Test Item Value Reference Range Interpretation Comments Urine Specific [place] (test code = 5811-5) 1.025 1.010-1.02 5 [facility] HospitalUrine [id number] 19:58:00* Test Item Value Reference Range Interpretation Comments Urine pH (test code = 90126-0) 6 5-7 [facility] Leukocyte Monfszbs3588-27-56 19:58:00* Test Item Value Reference Range Interpretation Comments Urine Leukocyte Esterase (test code = 5799-2) 1+ NEGATIVE H [facility] Vzhpejb8545-74-13 19:58:00* Test Item Value Reference Range Interpretation Comments Urine Nitrite (test code = 80423-7) NEGATIVE NEGATIVE [facility] Bbgqhqv4788-35-46 19:58:00* Test Item Value Reference Range Interpretation Comments Urine Protein (test code = 5804-0) 3+ NEGATIVE H [facility] HospitalUrine Glucose (UA)2018-05-23 19:58:00* Test Item Value Reference Range Interpretation Comments Urine Glucose (UA) (test code = 2349-9) NEGATIVE NEGATIVE [facility] HospitalUrine Btbhalc2000-25-01 19:58:00* Test Item Value Reference Range Interpretation Comments Urine Ketones (test code = 72052-8) NEGATIVE NEGATIVE [facility] Nmhjhbcbowyq9600-92-25 19:58:00* Test Item Value Reference Range Interpretation Comments Urine Urobilinogen (test code = 28566-7) 0.2 0.2-1 [facility] HospitalUrine Gdyrarhqv3486-01-28 19:58:00* Test Item Value Reference Range Interpretation Comments Urine Bilirubin (test code = 1978-6) NEGATIVE NEGATIVE [facility] HospitalUrine Ggkrm8819-17-62 19:58:00* Test Item Value Reference Range Interpretation Comments Urine Blood (test code = 34645-2) 1+ NEGATIVE H [facility] HospitalUrine Yugna0622-31-56 19:58:00* Test Item Value Reference Range Interpretation Comments Urine Color (test code = 5778-6) YELLOW YELLOW [facility] HospitalUrine Kchhwtb6853-53-92 19:58:00* Test Item Value Reference Range Interpretation Comments Urine Clarity (test code = 31850-2) CLOUDY CLEAR H [facility] HospitalUrine Specific Ffkvpca2603-10-10 19:58:00 * Test Item Value Reference Range Interpretation Comments Urine Specific [place] (test code = 5811-5) 1.025 1.010-1.02 5 [facility] HospitalUrine [id number] 19:58:00* Test Item Value Reference Range Interpretation Comments Urine pH (test code = 88324-3) 6 5-7 [facility] HospitalUrine Leukocyte Enrmvbbg7643-56-63 19:58:00* Test Item Value Reference Range Interpretation Comments Urine Leukocyte Esterase (test code = 5799-2) 1+ NEGATIVE H [facility] HospitalUrine Yrgcwzj9423-37-33 19:58:00* Test Item Value Reference Range Interpretation Comments Urine Nitrite (test code = 74174-3) NEGATIVE NEGATIVE [facility] HospitalUrine Qgqydpu3586-69-37 19:58:00* Test Item Value Reference Range Interpretation Comments Urine Protein (test code = 5804-0) 3+ NEGATIVE H [facility] HospitalUrine Glucose (UA)2018-05-23 19:58:00* Test Item Value Reference Range Interpretation Comments Urine Glucose (UA) (test code = 2349-9) NEGATIVE NEGATIVE [facility] HospitalUrine Pbmwmnc0382-28-22 19:58:00* Test Item Value Reference Range Interpretation Comments Urine Ketones (test code = 67362-7) NEGATIVE NEGATIVE [facility] HospitalUrine Kueirwizwgew0881-31-90 19:58:00* Test Item Value Reference Range Interpretation Comments Urine Urobilinogen (test code = 97960-6) 0.2 0.2-1 [facility] HospitalUrine Nrsmpwjtx8313-11-89 19:58:00* Test Item Value Reference Range Interpretation Comments Urine Bilirubin (test code = 1978-6) NEGATIVE NEGATIVE [facility] HospitalUrine Fhnsl9084-24-13 19:58:00* Test Item Value Reference Range Interpretation Comments Urine Blood (test code = 17058-6) 1+ NEGATIVE H [facility] HospitalMagnesium Mgbjg7444-01-82 08:37:00* Test Item Value Reference Range Interpretation Comments Magnesium Level (test code = 74605-3) 2.0 1.3-2.1 [facility] Qzzkj0539-50-95 08:18:00* Test Item Value Reference Range Interpretation Comments Sodium Level (test code = 2951-2) 140 136-145 [facility] HospitalPotassium Bdnaz1814-77-44 08:18:00* Test Item Value Reference Range Interpretation Comments Potassium Level (test code = 2823-3) 3.8 3.5-5.1 [facility] HospitalChloride Pfteg2862-90-20 08:18:00* Test Item Value Reference Range Interpretation Comments Chloride Level (test code = 2075-0) 104 98-107 [facility] HospitalCarbon Dioxide Puefz1565-72-65 08:18:00* Test Item Value Reference Range Interpretation Comments Carbon Dioxide Level (test code = 2028-9) 22 22-29 [facility] HospitalAnion Svk3170-30-56 08:18:00* Test Item Value Reference Range Interpretation Comments Anion Gap (test code = 73120-9) 17.8 8-16 H [facility] HospitalBlood Urea Dhyznzbh0243-17-49 08:18:00* Test Item Value Reference Range Interpretation Comments Blood Urea Nitrogen (test code = 3094-0) 30 7-26 H [facility] HospitalCreatinine2018-12-30 08:18:00* Test Item Value Reference Range Interpretation Comments Creatinine (test code = 2160-0) 2.76 0.57-1.11 H [facility] HospitalBUN/Creatinine Zbxol7705-96-69 08:18:00* Test Item Value Reference Range Interpretation Comments BUN/Creatinine Ratio (test code = 3097-3) 11 6-25 [facility] HospitalEstimat Glomerular Filtration Rate 2018-03-21 08:18:00* Test Item Value Reference Range Interpretation Comments Estimat Glomerular Filtration Rate (test code = 740653036) 17 >60 L Ranges were taken from the National Kidney Disease Education Program and the [facility] literature.Reference ranges:60 or greater: Fiejlo83-11 ( for 3 consecutive months): Chronic kidney disease 15 or less: Kidney failureHouston [facility] Willow[facility] HospitalGlucose Jvref0545-47-45 08:18:00* Test Item Value Reference Range Interpretation Comments Glucose Level (test code = KRR2886) 94 74-118 [facility] HospitalCalcium Hraml7838-38-74 08:18:00* Test Item Value Reference Range Interpretation Comments Calcium Level (test code = 02572-3) 9.6 8.4-10.2 [facility] HospitalTotal Umorsrzfk0279-67-58 08:18:00* Test Item Value Reference Range Interpretation Comments Total Bilirubin (test code = 1975-2) 0.4 0.2-1.2 [facility] HospitalAspartate Amino Transf (AST/SGOT) 2018-03-21 08:18:00* Test Item Value Reference Range Interpretation Comments Aspartate Amino Transf (AST/SGOT) (test code = Aspartate Amino Transf (AST/SGOT)) 18 5-34 [facility] HospitalAlanine Aminotransferase (ALT/SGPT) 2018-03-21 08:18:00* Test Item Value Reference Range Interpretation Comments Alanine Aminotransferase (ALT/SGPT) (test code = 1742-6) 12 0-55 [facility] HospitalTotal Tdliqlm6355-85-57 08:18:00* Test Item Value Reference Range Interpretation Comments Total Protein (test code = 2885-2) 7.2 6.5-8.1 [facility] HospitalAlbumin2018-12-30 08:18:00* Test Item Value Reference Range Interpretation Comments Albumin (test code = 1751-7) 2.6 3.5-5.0 L [facility] HospitalGlobulin2018-12-30 08:18:00* Test Item Value Reference Range Interpretation Comments Globulin (test code = 41306-7) 4.6 2.3-3.5 H [facility] HospitalAlbumin/Globulin Odmro3491-36-99 08:18:00 * Test Item Value Reference Range Interpretation Comments Albumin/Globulin Ratio (test code = 1759-0) 0.6 0.8-2.0 L [facility] HospitalAlkaline Vqputqwbcqa6769-16-63 08:18:00* Test Item Value Reference Range Interpretation Comments Alkaline Phosphatase (test code = 6768-6) 78 40-150 [facility] HospitalWhite Blood Fkbcf7896-07-57 07:46:00* Test Item Value Reference Range Interpretation Comments White Blood Count (test code = 6690-2) 17.06 4.8-10.8 H [facility] HospitalRed Blood Zijhs0988-03-26 07:46:00* Test Item Value Reference Range Interpretation Comments Red Blood Count (test code = 789-8) 3.81 3.6-5.1 [facility] HospitalHemoglobin2018-12-30 07:46:00* Test Item Value Reference Range Interpretation Comments Hemoglobin (test code = 06224-8) 10.0 12.0-16.0 L [facility] HospitalHematocrit2018-12-30 07:46:00* Test Item Value Reference Range Interpretation Comments Hematocrit (test code = 4544-3) 32.9 34.2-44.1 L [facility] HospitalMean Corpuscular Nsgysq2690-55-44 07:46:00* Test Item Value Reference Range Interpretation Comments Mean Corpuscular Volume (test code = 787-2) 86.4 81-99 [facility] HospitalMean Corpuscular Zhehayccvf7050-27-35 07:46:00* Test Item Value Reference Range Interpretation Comments Mean Corpuscular Hemoglobin (test code = 785-6) 26.2 28-32 L [facility] HospitalMean Corpuscular Hemoglobin Concent 2018-03-21 07:46:00* Test Item Value Reference Range Interpretation Comments Mean Corpuscular Hemoglobin Concent (test code = 786-4) 30.4 31-35 L [facility] HospitalRed Cell Distribution Mnqya6387-84-23 07:46:00* Test Item Value Reference Range Interpretation Comments Red Cell Distribution Width (test code = 94412-8) 16.0 11.7 -14.4 H [facility] HospitalPlatelet Pifgh2582-05-55 07:46:00* Test Item Value Reference Range Interpretation Comments Platelet Count (test code = 777-3) 727 140-360 H [facility] HospitalNeutrophils (%) (Auto)2018-03-21 07:46:00 * Test Item Value Reference Range Interpretation Comments Neutrophils (%) (Auto) (test code = 17742-5) 56.8 38.7-80.0 [facility] HospitalLymphocytes (%) (Auto)2018-03-21 07:46:00 * Test Item Value Reference Range Interpretation Comments Lymphocytes (%) (Auto) (test code = 736-9) 29.5 18.0-39.1 [facility] HospitalMonocytes (%) (Auto)2018-03-21 07:46:00* Test Item Value Reference Range Interpretation Comments Monocytes (%) (Auto) (test code = 5905-5) 7.6 4.4-11.3 [facility] HospitalEosinophils (%) (Auto)2018-03-21 07:46:00 * Test Item Value Reference Range Interpretation Comments Eosinophils (%) (Auto) (test code = 713-8) 4.7 0.0-6.0 [facility] HospitalBasophils (%) (Auto)2018-03-21 07:46:00* Test Item Value Reference Range Interpretation Comments Basophils (%) (Auto) (test code = 706-2) 0.5 0.0-1.0 [facility] HospitalIM GRANULOCYTES %2018-03-21 07:46:00* Test Item Value Reference Range Interpretation Comments IM GRANULOCYTES % (test code = IM GRANULOCYTES %) 0.9 0.0- 1.0 [facility] HospitalNeutrophils # (Auto)2018-03-21 07:46:00* Test Item Value Reference Range Interpretation Comments Neutrophils # (Auto) (test code = 751-8) 9.7 2.1-6.9 H [facility] HospitalLymphocytes # (Auto)2018-03-21 07:46:00* Test Item Value Reference Range Interpretation Comments Lymphocytes # (Auto) (test code = 90140-0) 5.0 1.0-3.2 H [facility] HospitalMonocytes # (Auto)2018-03-21 07:46:00* Test Item Value Reference Range Interpretation Comments Monocytes # (Auto) (test code = 742-7) 1.3 0.2-0.8 H [facility] HospitalEosinophils # (Auto)2018-03-21 07:46:00* Test Item Value Reference Range Interpretation Comments Eosinophils # (Auto) (test code = 711-2) 0.8 0.0-0.4 H [facility] HospitalBasophils # (Auto)2018-03-21 07:46:00* Test Item Value Reference Range Interpretation Comments Basophils # (Auto) (test code = 704-7) 0.1 0.0-0.1 [facility] HospitalAbsolute Immature Granulocyte (auto 2018-03-21 07:46:00* Test Item Value Reference Range Interpretation Comments Absolute Immature Granulocyte (auto (ortega t code = Absolute Immature Granulocyte (auto) 0.15 0-0.1 H [facility] HospitalCHEST 2 IFYIC9942-30-42 09:20:00 [place] [address] Patient Name: GABBIE TOBIN MR #: [id number] : 1955 Age/Sex: 62/F Req #: [id number] [facility] Physician: KYLEE ACOSTA MD Ordered by: PINA RUCKER MD Report #: [id number] Location: [facility] Room/Bed: 287-1 Procedure: [id number] DX/C HEST 2 VIEWS Exam Date: 03/17/18 Exam Time: 829 REPORT STATUS: Signed PROCEDURE: X- RAY CHEST, TWO VIEWS COMPARISON: 03/15/2018. INDICATIONS: PNEUMONIA FI NDINGS: LUNGS: Opacity previously identified in the right upper lobe has resolved. It therefore likely was secondary to atelectasis. Mild pulmonary vascular congestion. PLEURA: No effusions or pneumothorax. HEART MEDIASTINUM: The heart is enlarged. BONES SOFT TISSUES: No acute findings. CONCLUSION: Mild pulmonary vascular congestion. Kim Villar D.O. Dictated by: Kim Villar D.O. on 03/17/2018 at 9:20 Electronically approved by: Kim Villar D.O. on 03/17/2018 at 9:20 Dictated By: KIM VILLAR DO 9 Transcribed By: SUSU on 03/17/18919 COPY TO: PINA RUCKER MD Prothrombin Tqgh7663-56-15 07:26:00* Test Item Value Reference Range Interpretation Comments Prothrombin Time (test code = 5902-2) 31.1 11.9-14.5 H [facility] HospitalProthromb Time International Ratio 2018-03-17 07:26:00* Test Item Value Reference Range Interpretation Comments Prothromb Time International Ratio (test code = 6301-6) 2.75 Oral Anticoagulant Therapy INR Values:1. Low Intensity Therapy 1.5 - 2.02 . Moderate Intensity Therapy 2.0 - 3.03. High Intensity Therapy(1) 2.5 - 3. 54. High Intensity Therapy(2) 3.0 - 4.05. Panic Value INR > 5.0 [facility] HospitalRed Cell Morphology Bvartle7310-55-59 06:12:00* Test Item Value Reference Range Interpretation Comments Red Cell Morphology Comment (test code = 6742-1) NORMAL [facility] HospitalRed Cell Morphology Tbryivf8715-75-06 06:12:00* Test Item Value Reference Range Interpretation Comments Red Cell Morphology Comment (test code = 6742-1) NORMAL [facility] HospitalRed Cell Morphology Bfhcrhk8207-05-82 06:12:00* Test Item Value Reference Range Interpretation Comments Red Cell Morphology Comment (test code = 6742-1) NORMAL [facility] HospitalDifferential Total Cells Counted 2018-03-17 06:07:00* Test Item Value Reference Range Interpretation Comments Differential Total Cells Counted (test code = Differkari tial Total Cells Counted) 100 [facility] HospitalNeutrophils % (Manual)2018-03-17 06:07:00 * Test Item Value Reference Range Interpretation Comments Neutrophils % (Manual) (test code = 89378-4) 63 40-74 [facility] HospitalBand Neutrophils %2018-03-17 06:07:00* Test Item Value Reference Range Interpretation Comments Band Neutrophils % (test code = 764-1) 2 [facility] HospitalLymphocytes % (Manual)2018-03-17 06:07:00 * Test Item Value Reference Range Interpretation Comments Lymphocytes % (Manual) (test code = 737-7) 21 19-48 [facility] HospitalMonocytes % (Manual)2018-03-17 06:07:00* Test Item Value Reference Range Interpretation Comments Monocytes % (Manual) (test code = 744-3) 11 3.4-9.0 H [facility] HospitalEosinophils % (Manual)2018-03-17 06:07:00 * Test Item Value Reference Range Interpretation Comments Eosinophils % (Manual) (test code = 714-6) 2 0-7 [facility] HospitalBasophils % (Manual)2018-03-17 06:07:00* Test Item Value Reference Range Interpretation Comments Basophils % (Manual) (test code = 44693-8) 1 0-1.5 [facility] HospitalPlatelet Opljlbzr3973-60-24 06:07:00* Test Item Value Reference Range Interpretation Comments Platelet Estimate (test code = 30896-7) MODERATELY INCREASED [facility] HospitalPlatelet Morphology Lympaik4329-37-66 06:07:00* Test Item Value Reference Range Interpretation Comments Platelet Morphology Comment (test code = 21485-0) FEW LARGE [facility] HospitalPoikilocytosis2018-12-26 06:07:00* Test Item Value Reference Range Interpretation Comments Poikilocytosis (test code = 779-9) SLIGHT [facility] HospitalAnisocytosis2018-12-26 06:07:00* Test Item Value Reference Range Interpretation Comments Anisocytosis (test code = 702-1) S [facility] HospitalDifferential Total Cells Counted 2018-03-17 06:07:00* Test Item Value Reference Range Interpretation Comments Differential Total Cells Counted (test code = Differen tial Total Cells Counted) 100 [facility] HospitalNeutrophils % (Manual)2018-03-17 06:07:00 * Test Item Value Reference Range Interpretation Comments Neutrophils % (Manual) (test code = 59396-3) 63 40-74 [facility] HospitalBand Neutrophils %2018-03-17 06:07:00* Test Item Value Reference Range Interpretation Comments Band Neutrophils % (test code = 764-1) 2 [facility] HospitalLymphocytes % (Manual)2018-03-17 06:07:00 * Test Item Value Reference Range Interpretation Comments Lymphocytes % (Manual) (test code = 737-7) 21 19-48 [facility] HospitalMonocytes % (Manual)2018-03-17 06:07:00* Test Item Value Reference Range Interpretation Comments Monocytes % (Manual) (test code = 744-3) 11 3.4-9.0 H [facility] HospitalEosinophils % (Manual)2018-03-17 06:07:00 * Test Item Value Reference Range Interpretation Comments Eosinophils % (Manual) (test code = 714-6) 2 0-7 [facility] HospitalBasophils % (Manual)2018-03-17 06:07:00* Test Item Value Reference Range Interpretation Comments Basophils % (Manual) (test code = 39404-3) 1 0-1.5 [facility] HospitalPlatelet Yysfgrkt2861-19-66 06:07:00* Test Item Value Reference Range Interpretation Comments Platelet Estimate (test code = 02755-2) MODERATELY INCREASED [facility] HospitalPlatelet Morphology Xpkqncr2408-22-69 06:07:00* Test Item Value Reference Range Interpretation Comments Platelet Morphology Comment (test code = 34118-2) FEW LARGE [facility] HospitalPoikilocytosis2018-12-26 06:07:00* Test Item Value Reference Range Interpretation Comments Poikilocytosis (test code = 779-9) SLIGHT [facility] HospitalAnisocytosis2018-12-26 06:07:00* Test Item Value Reference Range Interpretation Comments Anisocytosis (test code = 702-1) S [facility] HospitalDifferential Total Cells Counted 2018-03-17 06:07:00* Test Item Value Reference Range Interpretation Comments Differential Total Cells Counted (test code = Differkari tial Total Cells Counted) 100 [facility] HospitalNeutrophils % (Manual)2018-03-17 06:07:00 * Test Item Value Reference Range Interpretation Comments Neutrophils % (Manual) (test code = 60105-4) 63 40-74 [facility] HospitalBand Neutrophils %2018-03-17 06:07:00* Test Item Value Reference Range Interpretation Comments Band Neutrophils % (test code = 764-1) 2 [facility] HospitalLymphocytes % (Manual)2018-03-17 06:07:00 * Test Item Value Reference Range Interpretation Comments Lymphocytes % (Manual) (test code = 737-7) 21 19-48 [facility] HospitalMonocytes % (Manual)2018-03-17 06:07:00* Test Item Value Reference Range Interpretation Comments Monocytes % (Manual) (test code = 744-3) 11 3.4-9.0 H [facility] HospitalEosinophils % (Manual)2018-03-17 06:07:00 * Test Item Value Reference Range Interpretation Comments Eosinophils % (Manual) (test code = 714-6) 2 0-7 [facility] HospitalBasophils % (Manual)2018-03-17 06:07:00* Test Item Value Reference Range Interpretation Comments Basophils % (Manual) (test code = 84934-1) 1 0-1.5 [facility] HospitalPlatelet Bkdmvdxr5926-43-92 06:07:00* Test Item Value Reference Range Interpretation Comments Platelet Estimate (test code = 08655-7) MODERATELY INCREASED [facility] HospitalPlatelet Morphology Ahiaufj9374-41-92 06:07:00* Test Item Value Reference Range Interpretation Comments Platelet Morphology Comment (test code = 55860-7) FEW LARGE [facility] HospitalPoikilocytosis2018-12-26 06:07:00* Test Item Value Reference Range Interpretation Comments Poikilocytosis (test code = 779-9) SLIGHT [facility] HospitalAnisocytosis2018-12-26 06:07:00* Test Item Value Reference Range Interpretation Comments Anisocytosis (test code = 702-1) S [facility] HospitalMicrocytosis2018-12-25 06:41:00* Test Item Value Reference Range Interpretation Comments Microcytosis (test code = 741-9) SLIGHT [facility] HospitalMicrocytosis2018-12-25 06:41:00* Test Item Value Reference Range Interpretation Comments Microcytosis (test code = 741-9) [facility] 06:41:00* Test Item Value Reference Range Interpretation Comments Microcytosis (test code = 741-9) [facility]IGHT [facility] 2 [id number] 15:04:00 [place] [address] Patient Name: GABBIE TOBIN MR #: [id number] : 1955 Age/Sex: 62/F Req #: [id number] Adm Physician: KYLEE ACOSTA MD Ordered by: AN POWELL MD Report #: [id number] Location: MED/SURG3 Room/Bed: [facility] Procedure: [id number] DX/CHEST 2 VIEWS Exam Date: Exam Time: REPORT STATUS: Signed EXAMINATION: CHEST 2 VIEWS INDICATION: Leukocytosis. COMPARISON: 03/10/2018. FINDI NGS: Patient is rotated on the film. TUBES and LINES: None. LUNGS: P atchy consolidation in the inferior right upper lobe, and to lesser degree edelmira g bases. PLEURA: No pleural effusion or pneumothorax. HEART AND MEDIA STINUM: The cardiomediastinal silhouette is unremarkable. BONES AND SO FT TISSUES: No acute osseous lesion. Soft tissues are unremarkable. UPP ER ABDOMEN: No free air under the diaphragm. IMPRESSION: Findings cifuentes ggestive of right upper lobe pneumonia. Cannot exclude developing pneumonia in the lung bases. Recommend follow-up after treatment to document resolution. Signed by: Dr. Janki Casillas M.D. on 03/15/2018 3:07 PM Di ctated By: DANIE CASILLAS MD, MD 06 Transcribed By: ALEXIA on 03/15/18 7354 COPY TO: AN STACY MD Lyvonvvxudann7321-34-16 09:12:00* Test Item Value Reference Range Interpretation Comments Hypochromasia (test code = 728-6) MOD[facility]ATE [facility]2018-12-24 09:12:00* Test Item Value Reference Range Interpretation Comments Hypochromasia (test code = 728-6) [facility]ATE [facility]2018-12-24 09:12:00* Test Item Value Reference Range Interpretation Comments Hypochromasia (test code = 728-6) MODERATE [facility]CT [facility]/PELVIS [id number] 08:48:00 [facility] [address] [address] Patient Name: GABBIE TOBIN MR #: [id number] : 1955 Age/Sex: 62/F Req #: [id number] Adm Physician: KYLEE ACOSTA MD Ordered by: PINA RUCKER MD Report #: [id number] [facility]: [facility] Procedure: [id number] CT/C T ABDOMEN/PELVIS WO Exam Date: 03/15/18 Exam Time: 0 832 REPORT STATUS: Signed ADDENDUM #1 ADDENDUM: Dose modulation, iterative reconstru ction, and/or weight based adjustment of the mA/kV was utilized to reduce the radiation dose to as low as reasonably achievable. Signed by: Dr. Buffy Guzman MD on 03/24/2018 5:25 PM ORIGINAL REPORT EXAM: CT A bdomen and Pelvis WITHOUT contrast INDICATION: Leukocytosis. ROBERT RISON: CT abdomen and pelvis 03/07/18. TECHNIQUE: Abdomen and pelvis were scan barbara utilizing a multidetector helical scanner from the lung base to the pubic symphysis without administration of IV contrast. Absence of intravenous contra st decreases sensitivity for detection of focal lesions and vascular pathology . Coronal and sagittal reformations were obtained. Routine protocol was perfor med. IV CONTRAST: None. ORAL CONTRAST: Water RADIATION DOSE: Total DLP: 846.9 mGy*cm COMPLICATIONS: None FINDINGS: LINES and TUBES: None. LOWER THORAX: Unchanged calcified granuloma in the left lower lobe. Coronary atherosclerotic calcifications. Patchy opacities in the lung bases, right greater than left, likely atelectasi s. HEPATOBILIARY: No focal hepatic lesions. No biliary ductal dilation. Status post cholecystectomy. SPLEEN: No splenomegaly. PANCREAS: No focal masses or ductal dilatation. ADRENALS: No adrenal nodules KID NEYS/URETERS: Interval removal of 2 mm obstructive left distal ureteral stone and placement of left internal ureteral stent with proximal pigtail in the nilson al pelvis and distal pigtail in the bladder. Resolution of left sided hydroure ter. Unchanged 2 mm nonobstructive left inferior pole stone. Residual mild lef t perinephric stranding. Small amount of air in the left renal collecting syst em, likely from recent intervention. Status post right nephrectomy. Dystro phic 2.5 cm calcification in the medial aspect of the left upper pole is uncha nged. No evidence of hydronephrosis. GI TRACT: No abnormal distention, wal l thickening, or evidence of bowel obstruction. Appendix is not visualized. PELVIC ORGANS/BLADDER: Air within the bladder likely reflects recent ureter al intervention. LYMPH NODES: Stable few left para-aortic noncalcified m ildly enlarged lymph nodes measuring up to 1.2 cm in transverse diameter, like ly reactive. VESSELS: Atherosclerotic calcifications of the abdominal aorta and branch vessels. PERITONEUM / RETROPERITONEUM: No free air or fluid. BONES: Osteoporosis with mild superior endplate compression deformities of T12 and L1, unchanged. IMPRESSION: Status post interval placement of left internal double J ureteral stent with removal of distal ureteral stone. N o evidence of hydronephrosis. Residual mild left perinephric stranding. Status post right nephrectomy. Signed by: Dr. Buffy Guzman MD on 03/15/2018 9:01 AM Dictated By: BUFFY GUZMAN MD 6501 Transcribed By: ALEXIA on 03/15/18 0901 COPY TO: PNIA RUCKER MD Bedside Yqkjnxo3171-36-13 16:27:00* Test Item Value Reference Range Interpretation Comments Bedside Glucose (test code = 99912-0) 356 70-120 H Meter ID: [id number] [facility] Glucose 2018-03-14 16:27:00* Test Item Value Reference Range Interpretation Comments Bedside Glucose (test code = 91795-1) 356 70-120 H Meter ID: [id number] [facility] Glucose 2018-03-14 16:27:00* Test Item Value Reference Range Interpretation Comments Bedside Glucose (test code = 66871-0) 356 70-120 H Meter ID: [id number] [facility] 2018-03-10 12:12:00 [facility] [address] [place] [address] Patient Name: GABBIE TOBIN MR #: [id number] : 1955 Age/Sex: 62/F Req #: [id number] Adm Physician: KYLEE ACOSTA MD Ordered by: AN POWELL MD Report #: [id number] Location: MED/SURG3 Room/Bed: [facility] Procedure: [id number] DX/CHEST 2 VIEWS Exam Date: 03/10/18 Exam Time: 1140 REPORT STATUS: Signed EXAM: XR CHEST 2 VIEWS DATE: 03/10/2018 9:20 AM INDICATION: Sepsis COMPARISON: Non e FINDINGS: Lines and Tubes: None Heart and Mediastinum: Enlarged , possibly due to technique/low lung volumes. Lungs and Pleura: Significant ly limited due to underpenetration, low lung volumes, and body habitus. Latera l views nondiagnostic. Patchy basilar opacities. Bones and Soft Tissues: No acute findings. IMPRESSION: 1. Very limited study. Patchy basilar op acities could represent atelectasis, edema, or pneumonia. Signed by: Dr. Mamadou Encarnacion MD on 03/10/2018 12:13 PM Dictated By: MAMADOU ENCARNACION MD E lectronically Signed By: MAMADOU ENCARNACION MD on 03/10/18 121 Transcribed By: FLORIAN SO on 03/10/183 COPY TO: AN POWELL MD Lactic Acid Level 2018-03-10 10:15:00* Test Item Value Reference Range Interpretation Comments Lactic Acid Level (test code = Lactic Acid Level) 7.8 4.5- 19.8 [facility] Acid Wmsby4491-78-87 10:15:00* Test Item Value Reference Range Interpretation Comments Lactic Acid Level (test code = Lactic Acid Level) 7.8 4.5- 19.8 [facility] Acid Wyixj7789-00-16 10:15:00* Test Item Value Reference Range Interpretation Comments Lactic Acid Level (test code = Lactic Acid Level) 7.8 4.5- 19.8 [facility] [id number] 10:53:00* Test Item Value Reference Range Interpretation Comments Urine WBC (test code = 5821-4) NONE 0-5 [facility] AFY7105-14-18 10:53:00* Test Item Value Reference Range Interpretation Comments Urine RBC (test code = 07945-7) 21-50 0-5 H [facility] Ffufvacl8102-09-01 10:53:00* Test Item Value Reference Range Interpretation Comments Urine Bacteria (test code = 03748-6) FEW NONE [facility] Epithelial Owdrz4534-15-19 10:53:00 * Test Item Value Reference Range Interpretation Comments Urine Epithelial Cells (test code = 15841-5) FEW NONE [facility] Hfzyv1437-82-62 10:29:00* Test Item Value Reference Range Interpretation Comments Urine Color (test code = 5778-6) YELLOW YELLOW [facility] Baqytwq2897-46-55 10:29:00* Test Item Value Reference Range Interpretation Comments Urine Clarity (test code = 38975-1) SL CLOUDY CLEAR [facility] Specific Ypuskkq9819-39-43 10:29:00 * Test Item Value Reference Range Interpretation Comments Urine Specific [place] (test code = 5811-5) 1.025 1.010-1.02 5 [facility] hP8139-84-20 10:29:00* Test Item Value Reference Range Interpretation Comments Urine pH (test code = 48718-8) 6 5-7 [facility] Leukocyte Gqfbzrlg5047-64-94 10:29:00* Test Item Value Reference Range Interpretation Comments Urine Leukocyte Esterase (test code = 5799-2) NEGATIVE NEGATIVE [facility] Qfrpaoy7863-56-72 10:29:00* Test Item Value Reference Range Interpretation Comments Urine Nitrite (test code = 81248-4) NEGATIVE NEGATIVE [facility] Ghnncox7317-70-58 10:29:00* Test Item Value Reference Range Interpretation Comments Urine Protein (test code = 5804-0) 3+ NEGATIVE H [facility] Glucose (UA)2018-03-09 10:29:00* Test Item Value Reference Range Interpretation Comments Urine Glucose (UA) (test code = 2349-9) NEGATIVE NEGATIVE [facility] Wnyfuzn1163-83-83 10:29:00* Test Item Value Reference Range Interpretation Comments Urine Ketones (test code = 00190-2) NEGATIVE NEGATIVE [facility] Wmglaogwncze8204-45-14 10:29:00* Test Item Value Reference Range Interpretation Comments Urine Urobilinogen (test code = 03691-1) 0.2 0.2-1 [facility] Udoaklkif9299-43-08 10:29:00* Test Item Value Reference Range Interpretation Comments Urine Bilirubin (test code = 1978-6) NEGATIVE NEGATIVE [facility] Yebqx0684-61-87 10:29:00* Test Item Value Reference Range Interpretation Comments Urine Blood (test code = 56252-7) 3+ NEGATIVE H [facility]/PELVIS YE8349-04-03 15:43:00 [facility] [address] [address] Patient Name: GABBIE TOBIN MR #: [id number] : 1955 Age/Sex: 62/F Req #: [id number] Adm Physician: KYLEE ACOSTA MD Ordered by: AN POWELL MD Report #: [id number] Location: MED/SURG3 Room/Bed: [facility] Procedure: [id number] CT/CT AB DOMEN/PELVIS WO Exam Date: 03/07/18 Exam Time: 1432 REPORT STATUS: Signed EXAM: CT A bdomen and Pelvis WITHOUT contrast INDICATION: STONE PROTOCOL. PERS ISTENT L FLANK PAINS. [id number] COMPARISON: CT abdomen and pe lvis 03/03/2018 TECHNIQUE: Abdomen and pelvis were scanned utilizing a multide tector helical scanner from the lung base to the pubic symphysis without admin istration of IV contrast. Absence of intravenous contrast decreases sensitivit y for detection of focal lesions and vascular pathology. Coronal and sagittal reformations were obtained. Routine protocol was performed. IV CONTRAST: None. ORAL CONTRAST: Water RADIATION DOSE: Total DLP: 974.7 mGy*cm Estimated effective dose: (DLP x 0.015 x size factor) mSv COMPLICATIONS: None FINDINGS: LINES and TUBES: None. LOWER THORAX: Unchanged small calcified granuloma in the li ngula and left lower lobe. Diffuse coronary artery calcifications. HEPATO BILIARY: No focal hepatic lesions. No biliary ductal dilation. GALLBL ADDER: Cholecystectomy. SPLEEN: No splenomegaly. PANCREAS: No focal m asses or ductal dilatation. ADRENALS: No adrenal nodules KIDNEYS /URETERS: Right nephrectomy. Mild cortical thinning of the left kidney. Dystro phic 2.5 cm calcification in the medial aspect of the right upper pole is unch anged. Unchanged 2 mm calcified stone in the inferior pole of the left kidney on series 401, image 68. Decreased dilatation of the left ureter measuring now up to 0.8 cm in transverse diameter compared to 1.3 cm. There is also mildly decreased though not resolved diffuse periureteral fat stranding. Residual fat stranding is still present in the mid aspect on coronal image 65. Left perine phric fat stranding remains unchanged. Interval migration of a 2 mm calcified stone within the distal ureter serial 0.8 cm above the ureterovesical junctio n. This is better seen on coronal image 76. GI TRACT: No abnormal distenti on, wall thickening, or evidence of bowel obstruction. Appendix is not v isualized. PELVIC ORGANS/BLADDER: Unremarkable. LYMPH NODES: Stable fe w left para-aortic noncalcified mildly enlarged lymph nodes measuring up to 1. 2 cm in transverse diameter, likely reactive. VESSELS: Atherosclerotic calc ifications of the abdominal aorta without aneurysm. PERITONEUM / RETROPER ITONEUM: No free air or fluid. BONES: Osteoporosis with mild superior endpl ate compression fracture deformities of T12 and L1. SOFT TISSUES: Bulging of the right abdominal wall muscles likely due to laxity. IM PRESSION: 1. Interval migration of a 2 mm calcified stone in the distal left ureter. Improved left ureteral dilatation and surrounding fat stranding. 2. Unchanged perinephric fat stranding and 2 mm nonobstructing left inferior pole renal stone. Signed by: Dr. Celia Owens M.D. on 03/07/20 4:08 PM Dictated By: CELIA OWENS MD 1608 Transcribed By: ALEXIA on 1608 COPY TO: AN POWELL MD WRIST COMPLETE [id number] 11:47:00 [place] [address] Patient Name: GABBEI TOBIN MR #: [id number] : 1955 Age/Sex: 62/F Req #: [id number] Adm Physician: KYLEE ACOSTA MD Ordered by: PINA RUCKER MD Report #: [id number] Location: MED/SURG3 Room/Bed: 287- Procedure: [id number] DX/W RIST COMPLETE RIGHT Exam Date: 03/06/18 Exam Time: 1 125 REPORT STATUS: Signed WRIST COMPLETE RIGHT - 3 views HISTORY: Pain. Right wrist pain radiating to the right elbow. Think she slept on the wrong. Pain started today. COMPARISON: N one available. FINDINGS: Bones: No acute displaced fracture. O sseous alignment is within normal limits. Joints: Moderate to severe dege nerative changes first carpometacarpal joint. Mild degenerative changes in the radiocarpal joint. Soft tissues: The soft tissues appear unremarkable. IMPRESSION: 1. Mild degenerative changes in the right radiocarpal maranda nt. 2. Moderate to severe degenerative changes at first carpometacarpal joint . Signed by: Dr. Jeronimo Powell M.D. on 03/06/2018 11:48 AM Dictated By: Ni POWELL MD 1148 Transcribed By : ALEXIA on 03/06/18 1148 COPY TO: PINA RUCKER MD ELBOW RIGHT MEFVNUTW8199-33-12 11:44:00 [place] [address] Patient Name: GABBIE TOBIN MR #: [id number] : 1955 Age/Sex: 62/F Req #: [id number] Adm Physician: KYLEE ACOSTA MD Ordered by: PINA RUCKER MD Report #: [id number] Location: MED/SURG3 Room/Bed: [facility] Procedure: [id number] DX/E LBOW RIGHT COMPLETE Exam Date: 03/06/18 Exam Time: 1 125 REPORT STATUS: Signed ELBOW RIGHT COMPLETE - 3 views HISTORY: Pain. UTI. Right wrist pain radiating to the right elbow. Patient and she slept on it wrong. Pain started today. COM PARISON: None available. FINDINGS: Bones: No acute displaced fract ure. Osseous alignment is within normal limits. Joints: The joint spa maximilian are well-maintained. Soft tissues: The soft tissues appear unremarkab le. IV catheter in the antecubital fossa. IMPRESSION: No acute radi ographic abnormality. Signed by: Dr. Jeronimo Powell M.D. on 03/06/2018 11:47 AM Dictated By: JERONIMO POWELL MD 1147 Transcribed By: ALEXIA on 03/06/18 1147 COPY TO: PINA RUCKER Urine Yriyldv6967-89-30 07:55:00* Test Item Value Reference Range Interpretation Comments Urine Culture (test code = 630-4) Organism: ESCHERICHIA COLI [facility] [id number] 15:53:00 [place] [address] Patient Name: GABBIE TOBIN MR #: [id number] : 1955 Age/Sex: 62/F Req #: [id number] Adm Physician: Ordered by: FLAKITA GIRARD MD Report #: [id number] Location: ER Room/Bed: Procedure: [id number] C T/CT ABDOMEN/PELVIS WO Exam Date: Exam Time: REPORT STATUS: Signed EXAM: CT of the abdomen and pelvis WITHOUT contrast HISTORY: Left flank pain,Nausea, Vom iting, evaluate for stone, recently treated for UTI COMPARISON: Images from CT of the abdomen July 21, [address] of the abdomen and pelvis July 18, 2017 TECHNIQUE: The abdomen and pelvis were scanned utilizing a multidet kyree helical scanner. Coronal and sagittal reformats are available. PROTOCOL: Renal colic IV CONTRAST: None, which limits se nsitivity and specificity of evaluation of the soft tissues and vascular struc tures. ORAL CONTRAST: None, which limits sensitivity and specific ity of evaluation of the bowel. RADIATION DOSE: Total DLP: 870.4 1 mGy*cm Estimated effective dose: (DLP x 0.015 x size factor) Dose modulation, iterative reconstruction, and/or weight based adjust ment of the mA/kV was utilized to reduce the radiation dose to as low as reaso nably achievable. COMPLICATIONS: None FINDINGS: Soft tiss ue attenuation partially limits sensitivity of the exam. LOWER THORAX: A 3 mm calcified granuloma the inferior aspect of the left upper lobe (series 3 image 5). A stable 1.2 cm partially calcified left lower lobe granuloma. HEPATOBILIARY: No definite focal hepatic lesions. No biliary ductal dilata tion. Metallic clips in the right upper quadrant of the abdomen are compatib le with prior cholecystectomy. SPLEEN: No spleen is visualized, correlate wi th prior surgical history. PANCREAS: No focal masses or ductal dilatation. A DRENALS: No discrete adrenal nodule. KIDNEYS/URETERS: No right kidney is p resent, postsurgical changes in the right renal bed. 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 Mild left perinephric fat stranding. Stable [place] calcifications near the inferior pole of the right kidney (series 3 image 92) and 5 mm medial parenchymal calcification (series 3 image 83). No right hydronephrosis, mild nonspecific prominence of portions of the right ureter, may be secondary to peristalsis. PELVIC ORGANS/BLADDER: The visualized pel mike organs appear unremarkable. PERITONEUM / RETROPERITONEUM: No free air o r fluid. GI TRACT: The stomach is partially decompressed, which limits evaluat ion. No bowel dilation. LYMPH NODES: A nonspecific 1 cm left periaor tic retroperitoneal lymph node (series 3 image 105), increased in size since t he comparison. VESSELS: Scattered atherosclerotic vascular calcifications, inc luding the coronary arteries. BONES: Diffusely decreased mineralization of the osseous structures limits bone detail. Interval mild superior endplate co mpression deformities of T12 and L1. SOFT TISSUES: Diffuse muscle atrophy. IMPRESSION: 1. No hydronephrosis or ureteral stone. 2. Two stable sma ll nonobstructing inferior left renal calcifications. 3. Nonspecific borderli ne 1 cm left periaortic retroperitoneal lymph node, increased in size since co mparison. 4. Coronary artery disease. 5. Osteoporosis with interval mild s uperior endplate compression fracture deformities of T12 and L1. Signed b y: Dr. Sergio Gilbert D.O., M.M.M. on 03/03/2018 4:16 PM Dictated By: SERGIO GILBERT DO 15 Transcribe d By: ALEXIA on 03/03/181615 COPY TO: FLAKITA GIRARD MD Urine Transitional Epithelial Dyhzg6125-88-60 13:43:00* Test Item Value Reference Range Interpretation Comments Urine Transitional Epithelial Cells (test code = 8249-5) [facility] Ren[facility] Epithelial Vgfij2504-41-61 13:43:00* Test Item Value Reference Range Interpretation Comments Urine Renal Epithelial Cells (test code = 76741-8) FEW NON E [facility] Transitional Epithelial Cells 2018-03-03 13:43:00* Test Item Value Reference Range Interpretation Comments Urine Transitional Epithelial Cells (test code = 8249-5) [facility] Renal Epithelial Wfgej7876-25-40 13:43:00* Test Item Value Reference Range Interpretation Comments Urine Renal Epithelial Cells (test code = 95291-1) FEW NON E [facility] Transitional Epithelial Cells 2018-03-03 13:43:00* Test Item Value Reference Range Interpretation Comments Urine Transitional Epithelial Cells (test code = 8249-5) [facility] Renal Epithelial Oufuf1494-42-51 13:43:00* Test Item Value Reference Range Interpretation Comments Urine Renal Epithelial Cells (test code = 91182-1) FEW NON E H [facility] LEFT THREE [id number] 23:56:00 [place] [address] Patient Name: GABBIE TOBIN MR #: [id number] : 1955 Age/Sex: 62/F Req #: [id number] Adm Physician: Ordered by: RONY RONDON MD Report #: [id number] Location: ER Room/Bed: Procedure: [id number] D X/KNEE LEFT THREE VIEWS Exam Date: 01/25/18 Exam Kade e: 2317 REPORT STATUS: Signed KN EE LEFT THREE VIEWS HISTORY: Status post fall down stairs. Pain to left h ip and knee. COMPARISON: None available. FINDINGS: Bones: No ac [place] displaced fracture. Osseous alignment is within normal limits. Join ts: Advanced tricompartmental degenerative changes. Soft tissues: Small joint effusion. Vascular calcifications. IMPRESSION: No acute radiograp hic abnormality. Signed by: DR. Bird Haynes MD on 01/25/2018 11:58 PM Dictated By: BIRD HAYNES MD 57 Transcribed By: ALEXIA on 01/25/182357 COPY TO: RONY DIAMOND MD HIP LEFT 2-3 VW (+/- PELVIS)2018-01-25 23:54:00 [place] [address] Patient Name: GABBIE TOBIN MR #: [id number] : 1955 Age/Sex: 62/F Req #: [id number] Adm Physician: Ordered by: RONY RONDON MD Report #: [id number] Location: ER Room/Bed: Procedure: [id number] D X/HIP LEFT 2-3 VW (+/- PELVIS) Exam Date: Exam Time : REPORT STATUS: Signed HIP LEF T 2-3 VW (+/- PELVIS) HISTORY: Status post fall down stairs. Pain to left hip and knee. COMPARISON: None available. FINDINGS: Bones: No acute displaced fracture. Osseous alignment is within normal limits. Joints: Mild degenerative changes of the hips. Soft tissues: The soft tissues appear unremarkable. IMPRESSION: No acute radiographic abnor mality. Signed by: DR. Bird Haynes MD on 01/25/2018 11:56 PM Dicta richie By: BIRD HAYNES MD Transcribed By: ALEXIA on 01/25/185 COPY TO: RONY RONDON MD CT LUMBAR SPINE [id number] 23:22:00 [place] [id number] Patient Name: GABBIE TOBIN MR #: [id number] : 1955 Age/Sex: 62/F Req #: [id number] Adm Physician: Ordered by: RONY RONDON MD Report #: [id number] Location: ER Room/Bed: Procedure: [id number] C T/CT LUMBAR SPINE WO Exam Date: 01/25/18 Exam Time: 2310 REPORT STATUS: Signed [place]: CT LUMBAR SPINE WITHOUT CONTRAST History: Low back pain after traum a. Comparison studies: None Technique: Axial images were obtained thro [facility] the lumbar spine from T12. Coronal and sagittal reconstructions obtained f rom the axial data. Dose modulation, iterative reconstruction, and/or weight b ased adjustment of the mA/kV was utilized to reduce the radiation dose to as l ow as reasonably achievable. Intravenous contrast: None Findings: The usual 5 non-rib bearing lumbar vertebral bodies are present. Alignment: N ormal lordosis. No scoliosis. Soft tissues: Right nephrectomy. Prior left nilson al artery embolization. Paraspinal muscles: Unremarkable. Sacroiliac joints: Vacuum phenomenon bilaterally. Vertebrae: No fractures, infection or n eoplasm. Degenerative changes: L1-L2: MIld bilateral facet arthropat hy. No canal or foraminal stenosis. L2-L3: Asymmetric to the left disc bulge results in mild left neural foraminal narrowing. No canal or right for aminal stenosis. L3-L4: Diffuse disc bulge and mild right and moderate l eft facet arthropathy. No canal or foraminal stenosis. L4-L5: Diffuse disc bulge, ligamentum flavum thickening and severe bilateral facet arthropath y result in moderate bilateral neural foraminal narrowing and at least moderat e canal stenosis. L5-S1: Right foraminal disc protrusion result in sever e right foraminal narrowing. No left foraminal or canal stenosis. IMPRESS ION: 1. No acute abnormalities. 2. Degenerative change, as above. Signed by: Dr. Audrey Covington M.D. on 01/25/2018 11:39 PM Dictated By: AUDREY DAMIAN MD [id number] Transcribed By: ALEXIA on 01/25/18 2121 COPY T O: RONY RONDON MD Wound Qiwsfcw5605-10-92 10:10:00* Test Item Value Reference Range Interpretation Comments Wound Culture (test code = 6462-6) Organism: STAPHYLOCOCCUS AUREUS [facility] Mxcahxd9939-84-94 10:10:00* Test Item Value Reference Range Interpretation Comments Wound Culture (test code = 6462-6) Organism: STAPHYLOCOCCUS AUREUS [facility] HospitalBlood Pjaqwqe5714-21-17 08:58:00* Test Item Value Reference Range Interpretation Comments Blood Culture (test code = 43036436) NO GROWTH AFTER 5 DAYS, FINAL REPORT [facility] Pvbmhxp0132-43-61 08:58:00* Test Item Value Reference Range Interpretation Comments Blood Culture (test code = 71094897) NO GROWTH AFTER 5 DAYS, FINAL REPORT [facility] HospitalDifferential Total Cells Counted 2017-07-23 09:43:00* Test Item Value Reference Range Interpretation Comments Differential Total Cells Counted (test code = Differkari tial Total Cells Counted) 100 [facility] HospitalNeutrophils % (Manual)2017-07-23 09:43:00 * Test Item Value Reference Range Interpretation Comments Neutrophils % (Manual) (test code = 21891-4) 65 40-74 [facility] HospitalLymphocytes % (Manual)2017-07-23 09:43:00 * Test Item Value Reference Range Interpretation Comments Lymphocytes % (Manual) (test code = 737-7) 24 19-48 [facility] HospitalMonocytes % (Manual)2017-07-23 09:43:00* Test Item Value Reference Range Interpretation Comments Monocytes % (Manual) (test code = 744-3) 7 3.4-9.0 [facility] HospitalEosinophils % (Manual)2017-07-23 09:43:00 * Test Item Value Reference Range Interpretation Comments Eosinophils % (Manual) (test code = 714-6) 4 0-7 [facility] HospitalPlatelet Kdbilxwg2293-19-06 09:43:00* Test Item Value Reference Range Interpretation Comments Platelet Estimate (test code = 56810-4) ADEQUATE [facility] HospitalPlatelet Morphology Advmdwz3648-23-69 09:43:00* Test Item Value Reference Range Interpretation Comments Platelet Morphology Comment (test code = 66893-7) NORMAL [facility] HospitalHypochromasia2018-05-03 09:43:00* Test Item Value Reference Range Interpretation Comments Hypochromasia (test code = 728-6) SLIGHT [facility] HospitalPoikilocytosis2018-05-03 09:43:00* Test Item Value Reference Range Interpretation Comments Poikilocytosis (test code = 779-9) SLIGHT [facility] HospitalAnisocytosis2018-05-03 09:43:00* Test Item Value Reference Range Interpretation Comments Anisocytosis (test code = 702-1) SLIGHT [facility] HospitalRed Cell Morphology Moipogn4434-69-96 09:43:00* Test Item Value Reference Range Interpretation Comments Red Cell Morphology Comment (test code = 6742-1) NORMAL [facility] HospitalWhite Blood Erltd9372-23-49 07:35:00* Test Item Value Reference Range Interpretation Comments White Blood Count (test code = 6690-2) 15.91 4.8-10.8 H [facility] HospitalRed Blood Puwgn8390-96-36 07:35:00* Test Item Value Reference Range Interpretation Comments Red Blood Count (test code = 789-8) 3.46 3.6-5.1 L [facility] HospitalHemoglobin2018-05-03 07:35:00* Test Item Value Reference Range Interpretation Comments Hemoglobin (test code = 49790-4) 9.4 12.0-16.0 L [facility] HospitalHematocrit2018-05-03 07:35:00* Test Item Value Reference Range Interpretation Comments Hematocrit (test code = 4544-3) 29.2 34.2-44.1 L [facility] HospitalMean Corpuscular Oohxaf4302-28-67 07:35:00* Test Item Value Reference Range Interpretation Comments Mean Corpuscular Volume (test code = 787-2) 84.4 81-99 [facility] HospitalMean Corpuscular Injcdirniv2886-67-80 07:35:00* Test Item Value Reference Range Interpretation Comments Mean Corpuscular Hemoglobin (test code = 785-6) 27.2 28-32 L [facility] HospitalMean Corpuscular Hemoglobin Concent 2017-07-23 07:35:00* Test Item Value Reference Range Interpretation Comments Mean Corpuscular Hemoglobin Concent (test code = 786-4) 32.2 31-35 [facility] HospitalRed Cell Distribution Oovic9305-35-00 07:35:00* Test Item Value Reference Range Interpretation Comments Red Cell Distribution Width (test code = 15077-4) 15.2 11.7 -14.4 H [facility] HospitalPlatelet Wedjv0314-68-34 07:35:00* Test Item Value Reference Range Interpretation Comments Platelet Count (test code = 777-3) 469 140-360 H [facility] HospitalNeutrophils (%) (Auto)2017-07-23 07:35:00 * Test Item Value Reference Range Interpretation Comments Neutrophils (%) (Auto) (test code = 72374-6) 65.2 38.7-80.0 [facility] HospitalLymphocytes (%) (Auto)2017-07-23 07:35:00 * Test Item Value Reference Range Interpretation Comments Lymphocytes (%) (Auto) (test code = 736-9) 20.5 18.0-39.1 [facility] HospitalMonocytes (%) (Auto)2017-07-23 07:35:00* Test Item Value Reference Range Interpretation Comments Monocytes (%) (Auto) (test code = 5905-5) 9.9 4.4-11.3 [facility] HospitalEosinophils (%) (Auto)2017-07-23 07:35:00 * Test Item Value Reference Range Interpretation Comments Eosinophils (%) (Auto) (test code = 713-8) 2.6 0.0-6.0 [facility] HospitalBasophils (%) (Auto)2017-07-23 07:35:00* Test Item Value Reference Range Interpretation Comments Basophils (%) (Auto) (test code = 706-2) 0.2 0.0-1.0 [facility] HospitalIM GRANULOCYTES %2017-07-23 07:35:00* Test Item Value Reference Range Interpretation Comments IM GRANULOCYTES % (test code = IM GRANULOCYTES %) 1.6 0.0- 1.0 H [facility] HospitalNeutrophils # (Auto)2017-07-23 07:35:00* Test Item Value Reference Range Interpretation Comments Neutrophils # (Auto) (test code = 751-8) 10.4 2.1-6.9 H [facility] HospitalLymphocytes # (Auto)2017-07-23 07:35:00* Test Item Value Reference Range Interpretation Comments Lymphocytes # (Auto) (test code = 38325-8) 3.3 1.0-3.2 H [facility] HospitalMonocytes # (Auto)2017-07-23 07:35:00* Test Item Value Reference Range Interpretation Comments Monocytes # (Auto) (test code = 742-7) 1.6 0.2-0.8 H [facility] HospitalEosinophils # (Auto)2017-07-23 07:35:00* Test Item Value Reference Range Interpretation Comments Eosinophils # (Auto) (test code = 711-2) 0.4 0.0-0.4 [facility] HospitalBasophils # (Auto)2017-07-23 07:35:00* Test Item Value Reference Range Interpretation Comments Basophils # (Auto) (test code = 704-7) 0.0 0.0-0.1 [facility] HospitalAbsolute Immature Granulocyte (auto 2017-07-23 07:35:00* Test Item Value Reference Range Interpretation Comments Absolute Immature Granulocyte (auto (ortega t code = Absolute Immature Granulocyte (auto) 0.26 0-0.1 H [facility] HospitalMagnesium Hacdn4294-04-04 07:34:00* Test Item Value Reference Range Interpretation Comments Magnesium Level (test code = 59272-1) 1.6 1.3-2.1 [facility] Centerodium Rgeca5322-87-06 07:28:00* Test Item Value Reference Range Interpretation Comments Sodium Level (test code = 2951-2) 140 136-145 [facility] HospitalPotassium Cvkeh1789-27-57 07:28:00* Test Item Value Reference Range Interpretation Comments Potassium Level (test code = 2823-3) 3.9 3.5-5.1 [facility] HospitalChloride Nthxg6345-00-74 07:28:00* Test Item Value Reference Range Interpretation Comments Chloride Level (test code = 2075-0) 112 98-107 H [facility] HospitalCarbon Dioxide Cyucq5348-50-33 07:28:00* Test Item Value Reference Range Interpretation Comments Carbon Dioxide Level (test code = 2028-9) 19 22-29 L [facility] HospitalAnion Xut4741-07-40 07:28:00* Test Item Value Reference Range Interpretation Comments Anion Gap (test code = 52318-3) 12.9 8-16 [facility] HospitalBlood Urea Dmywshdj3644-52-45 07:28:00* Test Item Value Reference Range Interpretation Comments Blood Urea Nitrogen (test code = 3094-0) 47 7-26 H [facility] HospitalCreatinine2018-05-03 07:28:00* Test Item Value Reference Range Interpretation Comments Creatinine (test code = 2160-0) 2.30 0.57-1.11 H [facility] HospitalBUN/Creatinine Sonag1663-41-45 07:28:00* Test Item Value Reference Range Interpretation Comments BUN/Creatinine Ratio (test code = 3097-3) 20 6-25 [facility] HospitalEstimat Glomerular Filtration Rate 2017-07-23 07:28:00* Test Item Value Reference Range Interpretation Comments Estimat Glomerular Filtration Rate (test code = 37717-9) 22 >60 L Ranges were taken from the National Kidney Disease Education Program and the [facility] Foundation literature.Reference ranges:60 or greater: Vliggl86-17 ( for 3 consecutive months): Chronic kidney disease 15 or less: Kidney failureHouston Methodist Willowbrook HospitalGlucose Nkvck7118-14-31 07:28:00* Test Item Value Reference Range Interpretation Comments Glucose Level (test code = DQR4000) 118 74-118 [facility] HospitalCalcium Bpcaz1338-70-74 07:28:00* Test Item Value Reference Range Interpretation Comments Calcium Level (test code = 39250-9) 8.5 8.4-10.2 [facility] HospitalTotal Egkderiwy7381-51-63 07:28:00* Test Item Value Reference Range Interpretation Comments Total Bilirubin (test code = 1975-2) 0.5 0.2-1.2 [facility] HospitalAspartate Amino Transf (AST/SGOT) 2017-07-23 07:28:00* Test Item Value Reference Range Interpretation Comments Aspartate Amino Transf (AST/SGOT) (test code = Aspartate Amino Transf (AST/SGOT)) 13 5-34 [facility] HospitalAlanine Aminotransferase (ALT/SGPT) 2017-07-23 07:28:00* Test Item Value Reference Range Interpretation Comments Alanine Aminotransferase (ALT/SGPT) (test code = 1742-6) 20 0-55 [facility] HospitalTotal Uxhjyyb5266-83-23 07:28:00* Test Item Value Reference Range Interpretation Comments Total Protein (test code = 2885-2) 5.3 6.5-8.1 L [facility] HospitalAlbumin2018-05-03 07:28:00* Test Item Value Reference Range Interpretation Comments Albumin (test code = 1751-7) 2.5 3.5-5.0 L [facility] HospitalGlobulin2018-05-03 07:28:00* Test Item Value Reference Range Interpretation Comments Globulin (test code = 33577-3) 2.8 2.3-3.5 [facility] HospitalAlbumin/Globulin Achsr6214-89-13 07:28:00 * Test Item Value Reference Range Interpretation Comments Albumin/Globulin Ratio (test code = 1759-0) 0.9 0.8-2.0 [facility] HospitalAlkaline Accdutqzqru9708-43-76 07:28:00* Test Item Value Reference Range Interpretation Comments Alkaline Phosphatase (test code = 6768-6) 60 40-150 [facility] HospitalB-Type Natriuretic Hzhovyy2085-73-92 10:39:00* Test Item Value Reference Range Interpretation Comments B-Type Natriuretic Peptide (test code = 27853-5) 63.7 0-100 [facility] HospitalB-Type Natriuretic Vnraxso7330-47-52 10:39:00* Test Item Value Reference Range Interpretation Comments B-Type Natriuretic Peptide (test code = 88667-6) 63.7 0-100 [facility] HospitalReactive Zqnxthrckyj7840-85-64 08:17:00* Test Item Value Reference Range Interpretation Comments Reactive Lymphocytes (test code = 17628-4) 3 [facility]Rec[facility] Odzxqcymsau4055-65-50 08:17:00* Test Item Value Reference Range Interpretation Comments Reactive Lymphocytes (test code = 41752-8) 3 [facility] HospitalCreatine Kinase JA1074-13-72 00:53:00* Test Item Value Reference Range Interpretation Comments Creatine Kinase MB (test code = 92554-6) 0.80 0-5.0 [facility] HospitalTroponin V0844-31-15 00:53:00* Test Item Value Reference Range Interpretation Comments Troponin I (test code = QOF7999) 0.065 0-0.300 [facility] HospitalCreatine Kinase YA4573-60-91 00:53:00* Test Item Value Reference Range Interpretation Comments Creatine Kinase MB (test code = 43798-6) 0.80 0-5.0 [facility] HospitalTroponin I4184-77-31 00:53:00* Test Item Value Reference Range Interpretation Comments Troponin I (test code = EFA6548) 0.065 0-0.300 [facility] HospitalCreatine Iqgkwh7144-14-00 00:44:00* Test Item Value Reference Range Interpretation Comments Creatine Kinase (test code = 2157-6) 32 29-168 [facility] HospitalCreatine Pxubvw2281-44-33 00:44:00* Test Item Value Reference Range Interpretation Comments Creatine Kinase (test code = 2157-6) 32 29-168 [facility] HospitalFr Thyroxine Sabqq1522-37-64 09:42:00* Test Item Value Reference Range Interpretation Comments Free Thyroxine Index (test code = 17976-1) 2.7760 1.4-3.8 [facility] HospitalThyroxine (T4)2017-07-19 09:42:00* Test Item Value Reference Range Interpretation Comments Thyroxine (T4) (test code = 3026-2) 7.35 4.5-10.9 Our current method for Total T4 is not recommended for use as the only marker fo r evaluating patients for thyroid disorders.[facility] HospitalTriiodothyronine (T3) Cckrgs8430-56-87 09:42:00* Test Item Value Reference Range Interpretation Comments Triiodothyronine (T3) Uptake (test code = 3050-2) 37.77 22.5 -37.0 H [facility] HospitalThyroid Stimulating Hormone (TSH) 2017-07-19 09:42:00* Test Item Value Reference Range Interpretation Comments Thyroid Stimulating Hormone (TSH) (test code = 56288-5) 0.158 0.350-4.940 L [facility] Thyroxine Wogjh6510-27-92 09:42:00* Test Item Value Reference Range Interpretation Comments Free Thyroxine Index (test code = 41577-4) 2.7760 1.4-3.8 [facility] HospitalThyroxine (T4)2017-07-19 09:42:00* Test Item Value Reference Range Interpretation Comments Thyroxine (T4) (test code = 3026-2) 7.35 4.5-10.9 Our current method for Total T4 is not recommended for use as the only marker fo r evaluating patients for thyroid disorders.[facility] HospitalTriiodothyronine (T3) Hjcwtv8696-09-76 09:42:00* Test Item Value Reference Range Interpretation Comments Triiodothyronine (T3) Uptake (test code = 3050-2) 37.77 22.5 -37.0 H [facility] HospitalThyroid Stimulating Hormone (TSH) 2017-07-19 09:42:00* Test Item Value Reference Range Interpretation Comments Thyroid Stimulating Hormone (TSH) (test code = 43213-1) 0.158 0.350-4.940 L [facility] HospitalLactic Acid Qzzlp4475-65-31 09:17:00* Test Item Value Reference Range Interpretation Comments Lactic Acid Level (test code = Lactic Acid Level) 8.8 4.5- 19.8 [facility] HospitalProthrombin Blom9059-10-83 19:34:00* Test Item Value Reference Range Interpretation Comments Prothrombin Time (test code = 5902-2) 13.0 11.9-14.5 [facility] HospitalProthromb Time International Ratio 2017-07-18 19:34:00* Test Item Value Reference Range Interpretation Comments Prothromb Time International Ratio (test code = 6301-6) 1.06 Oral Anticoagulant Therapy INR Values:1. Low Intensity Therapy 1.5 - 2.02 . Moderate Intensity Therapy 2.0 - 3.03. High Intensity Therapy(1) 2.5 - 3. 54. High Intensity Therapy(2) 3.0 - 4.05. Panic Value INR > 5.0 [facility] HospitalActivated Partial Thromboplast Time 2017-07-18 19:34:00* Test Item Value Reference Range Interpretation Comments Activated Partial Thromboplast Time (test code = 95444-9) 21.6 23.8-35.5 L [facility] HospitalActivated Partial Thromboplast Time 2017-07-18 19:34:00* Test Item Value Reference Range Interpretation Comments Activated Partial Thromboplast Time (test code = 90897-7) 21.6 23.8-35.5 L [facility] Centerodium Nzifj1907-32-11 07:27:00* Test Item Value Reference Range Interpretation Comments Sodium Level (test code = 2951-2) 136 136-145 [facility] HospitalPotassium Rfkos0909-83-26 07:27:00* Test Item Value Reference Range Interpretation Comments Potassium Level (test code = 2823-3) 3.6 3.5-5.1 [facility] HospitalChloride Sqqgc9573-88-09 07:27:00* Test Item Value Reference Range Interpretation Comments Chloride Level (test code = 2075-0) 99 98-107 [facility] HospitalCarbon Dioxide Rowgo6892-74-64 07:27:00* Test Item Value Reference Range Interpretation Comments Carbon Dioxide Level (test code = 8-9) 25 - [facility] HospitalAnion Cqb9926-59-78 07:27:00* Test Item Value Reference Range Interpretation Comments Anion Gap (test code = 15123-3) 15.6 8-16 [facility] HospitalBlood Urea Btmrmyli8644-96-64 07:27:00* Test Item Value Reference Range Interpretation Comments Blood Urea Nitrogen (test code = 3094-0) 60 7-26 H [facility] HospitalCreatinine2018-04-26 07:27:00* Test Item Value Reference Range Interpretation Comments Creatinine (test code = 2160-0) 2.72 0.57-1.11 H [facility] HospitalBUN/Creatinine Lmngz5847-39-34 07:27:00* Test Item Value Reference Range Interpretation Comments BUN/Creatinine Ratio (test code = 3097-3) 22 6- [facility] HospitalEstimat Glomerular Filtration Rate 2017-07-16 07:27:00* Test Item Value Reference Range Interpretation Comments Estimat Glomerular Filtration Rate (test code = 50464-8) 18 >60 L Ranges were taken from the National Kidney Disease Education Program and the [facility] Foundation literature.Reference ranges:60 or greater: Qkktdy32-47 ( for 3 consecutive months): Chronic kidney disease 15 or less: Kidney failureHouston Methodist Willowbrook HospitalGlucose Irnce6190-80-29 07:27:00* Test Item Value Reference Range Interpretation Comments Glucose Level (test code = QHF4064) 219 74-118 H [facility] HospitalCalcium Elehi6829-12-30 07:27:00* Test Item Value Reference Range Interpretation Comments Calcium Level (test code = 10885-0) 9.3 8.4-10.2 [facility] HospitalTotal Jnjrzxxzt0416-84-66 07:27:00* Test Item Value Reference Range Interpretation Comments Total Bilirubin (test code = 1975-2) 0.4 0.2-1.2 [facility] HospitalAspartate Amino Transf (AST/SGOT) 2017-07-16 07:27:00* Test Item Value Reference Range Interpretation Comments Aspartate Amino Transf (AST/SGOT) (test code = Aspartate Amino Transf (AST/SGOT)) 10 5-34 [facility] HospitalAlanine Aminotransferase (ALT/SGPT) 2017-07-16 07:27:00* Test Item Value Reference Range Interpretation Comments Alanine Aminotransferase (ALT/SGPT) (test code = 1742-6) 14 0-55 [facility] HospitalTotal Cygtlbe4492-56-10 07:27:00* Test Item Value Reference Range Interpretation Comments Total Protein (test code = 2885-2) 6.6 6.5-8.1 [facility] HospitalAlbumin2018-04-26 07:27:00* Test Item Value Reference Range Interpretation Comments Albumin (test code = 1751-7) 2.8 3.5-5.0 L [facility] HospitalGlobulin2018-04-26 07:27:00* Test Item Value Reference Range Interpretation Comments Globulin (test code = 61165-3) 3.8 2.3-3.5 H [facility] HospitalAlbumin/Globulin Eomrm8334-12-61 07:27:00 * Test Item Value Reference Range Interpretation Comments Albumin/Globulin Ratio (test code = 1759-0) 0.7 0.8-2.0 L [facility] HospitalAlkaline Obuwpxugsxz3151-00-26 07:27:00* Test Item Value Reference Range Interpretation Comments Alkaline Phosphatase (test code = 6768-6) 71 40-150 [facility] HospitalMagnesium Fnrpy5255-98-36 07:10:00* Test Item Value Reference Range Interpretation Comments Magnesium Level (test code = 93975-2) 1.6 1.3-2.1 [facility] HospitalWhite Blood Mnhhy5380-67-40 07:00:00* Test Item Value Reference Range Interpretation Comments White Blood Count (test code = 6690-2) 15.90 4.8-10.8 H [facility] HospitalRed Blood Ovndh8319-42-38 07:00:00* Test Item Value Reference Range Interpretation Comments Red Blood Count (test code = 789-8) 4.06 3.6-5.1 [facility] HospitalHemoglobin2018-04-26 07:00:00* Test Item Value Reference Range Interpretation Comments Hemoglobin (test code = 50412-9) 10.9 12.0-16.0 L [facility] HospitalHematocrit2018-04-26 07:00:00* Test Item Value Reference Range Interpretation Comments Hematocrit (test code = 4544-3) 32.8 34.2-44.1 L [facility] HospitalMean Corpuscular Wfxghc2004-33-27 07:00:00* Test Item Value Reference Range Interpretation Comments Mean Corpuscular Volume (test code = 787-2) 80.8 81-99 L [facility] HospitalMean Corpuscular Xbiemhfecr2672-15-90 07:00:00* Test Item Value Reference Range Interpretation Comments Mean Corpuscular Hemoglobin (test code = 785-6) 26.8 28-32 L [facility] HospitalMean Corpuscular Hemoglobin Concent 2017-07-16 07:00:00* Test Item Value Reference Range Interpretation Comments Mean Corpuscular Hemoglobin Concent (test code = 786-4) 33.2 31-35 [facility] HospitalRed Cell Distribution Iemay2018-43-09 07:00:00* Test Item Value Reference Range Interpretation Comments Red Cell Distribution Width (test code = 90673-8) 14.2 11.7 -14.4 [facility] HospitalPlatelet Slthv0493-42-37 07:00:00* Test Item Value Reference Range Interpretation Comments Platelet Count (test code = 777-3) 574 140-360 H [facility] HospitalNeutrophils (%) (Auto)2017-07-16 07:00:00 * Test Item Value Reference Range Interpretation Comments Neutrophils (%) (Auto) (test code = 46047-4) 88.6 38.7-80.0 H [facility] HospitalLymphocytes (%) (Auto)2017-07-16 07:00:00 * Test Item Value Reference Range Interpretation Comments Lymphocytes (%) (Auto) (test code = 736-9) 8.2 18.0-39.1 L [facility] HospitalMonocytes (%) (Auto)2017-07-16 07:00:00* Test Item Value Reference Range Interpretation Comments Monocytes (%) (Auto) (test code = 5905-5) 2.5 4.4-11.3 L [facility] HospitalEosinophils (%) (Auto)2017-07-16 07:00:00 * Test Item Value Reference Range Interpretation Comments Eosinophils (%) (Auto) (test code = 713-8) 0.0 0.0-6.0 [facility] HospitalBasophils (%) (Auto)2017-07-16 07:00:00* Test Item Value Reference Range Interpretation Comments Basophils (%) (Auto) (test code = 706-2) 0.1 0.0-1.0 [facility] HospitalIM GRANULOCYTES %2017-07-16 07:00:00* Test Item Value Reference Range Interpretation Comments IM GRANULOCYTES % (test code = IM GRANULOCYTES %) 0.6 0.0- 1.0 [facility] HospitalNeutrophils # (Auto)2017-07-16 07:00:00* Test Item Value Reference Range Interpretation Comments Neutrophils # (Auto) (test code = 751-8) 14.1 2.1-6.9 H [facility] HospitalLymphocytes # (Auto)2017-07-16 07:00:00* Test Item Value Reference Range Interpretation Comments Lymphocytes # (Auto) (test code = 61408-2) 1.3 1.0-3.2 [facility] HospitalMonocytes # (Auto)2017-07-16 07:00:00* Test Item Value Reference Range Interpretation Comments Monocytes # (Auto) (test code = 742-7) 0.4 0.2-0.8 [facility] HospitalEosinophils # (Auto)2017-07-16 07:00:00* Test Item Value Reference Range Interpretation Comments Eosinophils # (Auto) (test code = 711-2) 0.0 0.0-0.4 [facility] HospitalBasophils # (Auto)2017-07-16 07:00:00* Test Item Value Reference Range Interpretation Comments Basophils # (Auto) (test code = 704-7) 0.0 0.0-0.1 [facility] HospitalAbsolute Immature Granulocyte (auto 2017-07-16 07:00:00* Test Item Value Reference Range Interpretation Comments Absolute Immature Granulocyte (auto (ortega t code = Absolute Immature Granulocyte (auto) 0.09 0-0.1 [facility] HospitalB-Type Natriuretic Jhvcnpf5801-68-73 10:31:00* Test Item Value Reference Range Interpretation Comments B-Type Natriuretic Peptide (test code = 27401-4) 91.0 0-100 [facility] HospitalBlood Idkekig1952-79-50 16:57:00* Test Item Value Reference Range Interpretation Comments Blood Culture (test code = 78068198) NO GROWTH AFTER 5 DAYS, FINAL REPORT [facility] HospitalCreatine Kinase LC9668-01-62 08:00:00* Test Item Value Reference Range Interpretation Comments Creatine Kinase MB (test code = 32081-0) 0.30 0-5.0 [facility] HospitalTroponin Y9274-34-14 08:00:00* Test Item Value Reference Range Interpretation Comments Troponin I (test code = GAK5971) 0.011 0-0.300 [facility] HospitalCreatine Isiiiv0356-56-68 07:31:00* Test Item Value Reference Range Interpretation Comments Creatine Kinase (test code = 2157-6) 29 29-168 [facility] Erwqfie3989-32-34 21:32:00* Test Item Value Reference Range Interpretation Comments Bedside Glucose (test code = 18376-7) 82 70-120 Meter ID: [id number] Glucose 2016-12-23 21:32:00* Test Item Value Reference Range Interpretation Comments Bedside Glucose (test code = 09531-3) 82 70-120 Meter ID: [id number] [facility] HospitalBedside Glucose 2016-12-23 21:32:00* Test Item Value Reference Range Interpretation Comments Bedside Glucose (test code = 79663-3) 82 70-120 Meter ID: [id number] Methodist Willow[facility] HospitalCreatine Kinase MB 2016-12-22 15:42:00* Test Item Value Reference Range Interpretation Comments Creatine Kinase MB (test code = 83902-2) 0.50 0.00-5.00 [facility] HospitalTroponin G9077-84-82 15:42:00* Test Item Value Reference Range Interpretation Comments Troponin I (test code = EPJ0465) 0.010 0-0.300 [facility] Centerodium Hbqca1979-39-16 15:34:00* Test Item Value Reference Range Interpretation Comments Sodium Level (test code = 2951-2) 138 136-145 [facility] HospitalPotassium Enxlr8304-35-48 15:34:00* Test Item Value Reference Range Interpretation Comments Potassium Level (test code = 2823-3) 3.9 3.5-5.1 [facility] HospitalChloride Sovik0476-08-35 15:34:00* Test Item Value Reference Range Interpretation Comments Chloride Level (test code = 2075-0) 104 98-107 [facility] HospitalCarbon Dioxide Ebsgg3913-01-15 15:34:00* Test Item Value Reference Range Interpretation Comments Carbon Dioxide Level (test code = 2028-9) 25 22-29 [facility] HospitalAnion Hke0554-29-17 15:34:00* Test Item Value Reference Range Interpretation Comments Anion Gap (test code = 61147-4) 12.9 8-16 [facility] HospitalBlood Urea Etprrfbh9446-13-55 15:34:00* Test Item Value Reference Range Interpretation Comments Blood Urea Nitrogen (test code = 3094-0) 34 7-26 H [facility] HospitalCreatinine2017-10-02 15:34:00* Test Item Value Reference Range Interpretation Comments Creatinine (test code = 2160-0) 2.03 0.57-1.11 H [facility] HospitalBUN/Creatinine Ubkrj0545-05-03 15:34:00* Test Item Value Reference Range Interpretation Comments BUN/Creatinine Ratio (test code = 3097-3) 17 6-25 [facility] HospitalEstimat Glomerular Filtration Rate 2016-12-22 15:34:00* Test Item Value Reference Range Interpretation Comments Estimat Glomerular Filtration Rate (test code = 33217-1) 25 >60 L Ranges were taken from the National Kidney Disease Education Program and the [facility] [employer] literature.Reference ranges:60 or greater: Lfhpcj67-39 ( for 3 consecutive months): Chronic kidney disease 15 or less: Kidney failureCHI Hill Country Memorial HospitalGlucose Lxise4381-56-83 15:34:00* Test Item Value Reference Range Interpretation Comments Glucose Level (test code = UJU8074) 116 74-118 [facility] HospitalCalcium Pyjwd8729-61-12 15:34:00* Test Item Value Reference Range Interpretation Comments Calcium Level (test code = 70412-3) 9.3 8.4-10.2 [facility] HospitalTotal Cvuohprvu0551-80-75 15:34:00* Test Item Value Reference Range Interpretation Comments Total Bilirubin (test code = 1975-2) 0.3 0.2-1.2 [facility] HospitalAspartate Amino Transf (AST/SGOT) 2016-12-22 15:34:00* Test Item Value Reference Range Interpretation Comments Aspartate Amino Transf (AST/SGOT) (test code = Aspartate Amino Transf (AST/SGOT)) 19 5-34 [facility] HospitalAlanine Aminotransferase (ALT/SGPT) 2016-12-22 15:34:00* Test Item Value Reference Range Interpretation Comments Alanine Aminotransferase (ALT/SGPT) (test code = 1742-6) 21 0-55 [facility] HospitalTotal Fjmupwn2157-27-53 15:34:00* Test Item Value Reference Range Interpretation Comments Total Protein (test code = 2885-2) 7.4 6.5-8.1 [facility] HospitalAlbumin2017-10-02 15:34:00* Test Item Value Reference Range Interpretation Comments Albumin (test code = 1751-7) 3.1 3.5-5.0 L [facility] HospitalGlobulin2017-10-02 15:34:00* Test Item Value Reference Range Interpretation Comments Globulin (test code = 39267-7) 4.3 2.3-3.5 H [facility] HospitalAlbumin/Globulin Odgph1826-60-27 15:34:00 * Test Item Value Reference Range Interpretation Comments Albumin/Globulin Ratio (test code = 1759-0) 0.7 0.8-2.0 L [facility] HospitalAlkaline Anuitgogojz5012-50-85 15:34:00* Test Item Value Reference Range Interpretation Comments Alkaline Phosphatase (test code = 6768-6) 101 40-150 [facility] HospitalCreatine Mcihyj4545-18-77 15:34:00* Test Item Value Reference Range Interpretation Comments Creatine Kinase (test code = 2157-6) 33 29-168 [facility] HospitalProthrombin Zjjt9173-34-88 15:23:00* Test Item Value Reference Range Interpretation Comments Prothrombin Time (test code = 5902-2) 12.7 11.9-14.5 [facility] HospitalProthromb Time International Ratio 2016-12-22 15:23:00* Test Item Value Reference Range Interpretation Comments Prothromb Time International Ratio (test code = 6301-6) 0.91 Oral Anticoagulant Therapy INR Values:1. Low Intensity Therapy 1.5 - 2.02 . Moderate Intensity Therapy 2.0 - 3.03. High Intensity Therapy(1) 2.5 - 3. 54. High Intensity Therapy(2) 3.0 - 4.05. Panic Value INR > 5.0 [facility] HospitalActivated Partial Thromboplast Time 2016-12-22 15:23:00* Test Item Value Reference Range Interpretation Comments Activated Partial Thromboplast Time (test code = 41061-0) 45.2 23.8-35.5 H [facility] HospitalProthrombin Izkp3503-59-29 15:23:00* Test Item Value Reference Range Interpretation Comments Prothrombin Time (test code = 5902-2) 12.7 11.9-14.5 [facility] HospitalProthromb Time International Ratio 2016-12-22 15:23:00* Test Item Value Reference Range Interpretation Comments Prothromb Time International Ratio (test code = 6301-6) 0.91 Oral Anticoagulant Therapy INR Values:1. Low Intensity Therapy 1.5 - 2.02 . Moderate Intensity Therapy 2.0 - 3.03. High Intensity Therapy(1) 2.5 - 3. 54. High Intensity Therapy(2) 3.0 - 4.05. Panic Value INR > 5.0 [facility] HospitalActivated Partial Thromboplast Time 2016-12-22 15:23:00* Test Item Value Reference Range Interpretation Comments Activated Partial Thromboplast Time (test code = 45637-4) 45.2 23.8-35.5 H [facility] HospitalUrine TYX4230-94-47 15:21:00* Test Item Value Reference Range Interpretation Comments Urine WBC (test code = 5821-4) 6-10 0-5 H [facility] HospitalUrine PYV2276-11-02 15:21:00* Test Item Value Reference Range Interpretation Comments Urine RBC (test code = 96541-2) 6-10 0-5 H [facility] HospitalUrine Puavybvu7175-65-96 15:21:00* Test Item Value Reference Range Interpretation Comments Urine Bacteria (test code = 28814-6) MODERATE NONE H [facility] HospitalUrine Epithelial Jvydv7740-54-69 15:21:00 * Test Item Value Reference Range Interpretation Comments Urine Epithelial Cells (test code = 24831-7) MANY NONE [facility] HospitalUrine Transitional Epithelial Cells 2016-12-22 15:21:00* Test Item Value Reference Range Interpretation Comments Urine Transitional Epithelial Cells (test code = 8249-5) FEW NONE H [facility] HospitalUrine Renal Epithelial Tocje1037-12-45 15:21:00* Test Item Value Reference Range Interpretation Comments Urine Renal Epithelial Cells (test code = 89004-1) FEW NON E H [facility] HospitalUrine Hyaline Brqxa8619-06-14 15:21:00* Test Item Value Reference Range Interpretation Comments Urine Hyaline Casts (test code = 07023-3) 0-1 0-1 [facility] HospitalUrine XRC7193-06-42 15:21:00* Test Item Value Reference Range Interpretation Comments Urine WBC (test code = 5821-4) 6-10 0-5 H [facility] FHS7587-21-22 15:21:00* Test Item Value Reference Range Interpretation Comments Urine RBC (test code = 64578-6) 6-10 0-5 H [facility] HospitalUrine Ihmaybav7230-57-21 15:21:00* Test Item Value Reference Range Interpretation Comments Urine Bacteria (test code = 03572-0) MODERATE NONE H [facility] Epithelial Crjnb8036-51-58 15:21:00 * Test Item Value Reference Range Interpretation Comments Urine Epithelial Cells (test code = 57543-0) MANY NONE [facility] Transitional Epithelial Cells 2016-12-22 15:21:00* Test Item Value Reference Range Interpretation Comments Urine Transitional Epithelial Cells (test code = 8249-5) FEW NONE H [facility] HospitalUrine Renal Epithelial Nbage2343-97-65 15:21:00* Test Item Value Reference Range Interpretation Comments Urine Renal Epithelial Cells (test code = 57264-0) FEW NON E H [facility] HospitalUrine Hyaline Tnuxr4244-43-02 15:21:00* Test Item Value Reference Range Interpretation Comments Urine Hyaline Casts (test code = 84664-9) 0-1 0-1 [facility] HospitalUrine SRK0701-63-52 15:21:00* Test Item Value Reference Range Interpretation Comments Urine WBC (test code = 5821-4) 6-10 0-5 H [facility] HospitalUrine MJP7959-41-29 15:21:00* Test Item Value Reference Range Interpretation Comments Urine RBC (test code = 34085-1) 6-10 0-5 H [facility] Hhoigxyq9241-74-47 15:21:00* Test Item Value Reference Range Interpretation Comments Urine Bacteria (test code = 57677-7) MODERATE NONE H [facility] HospitalUrine Epithelial Dvayt3671-46-03 15:21:00 * Test Item Value Reference Range Interpretation Comments Urine Epithelial Cells (test code = 60169-5) MANY NONE [facility] HospitalUrine Transitional Epithelial Cells 2016-12-22 15:21:00* Test Item Value Reference Range Interpretation Comments Urine Transitional Epithelial Cells (test code = 8249-5) FEW NONE H [facility] HospitalUrine Renal Epithelial Lnxxg2980-12-50 15:21:00* Test Item Value Reference Range Interpretation Comments Urine Renal Epithelial Cells (test code = 05161-0) FEW NON E H [facility] HospitalUrine Hyaline Waizz0054-29-66 15:21:00* Test Item Value Reference Range Interpretation Comments Urine Hyaline Casts (test code = 50927-2) 0-1 0-1 [facility] HospitalWhite Blood Vanxm3745-43-92 15:14:00* Test Item Value Reference Range Interpretation Comments White Blood Count (test code = 6690-2) 13.82 4.8-10.8 H [facility] HospitalRed Blood Osegx9600-72-38 15:14:00* Test Item Value Reference Range Interpretation Comments Red Blood Count (test code = 789-8) 4.16 3.6-5.1 [facility] HospitalHemoglobin2017-10-02 15:14:00* Test Item Value Reference Range Interpretation Comments Hemoglobin (test code = 05385-0) 11.0 12.0-16.0 L [facility] HospitalHematocrit2017-10-02 15:14:00* Test Item Value Reference Range Interpretation Comments Hematocrit (test code = 4544-3) 34.8 34.2-44.1 [facility] HospitalMean Corpuscular Xbnjiu2324-63-05 15:14:00* Test Item Value Reference Range Interpretation Comments Mean Corpuscular Volume (test code = 787-2) 83.7 81-99 [facility] HospitalMean Corpuscular Iwuoqrweln3266-98-94 15:14:00* Test Item Value Reference Range Interpretation Comments Mean Corpuscular Hemoglobin (test code = 785-6) 26.4 28-32 L [facility] HospitalMean Corpuscular Hemoglobin Concent 2016-12-22 15:14:00* Test Item Value Reference Range Interpretation Comments Mean Corpuscular Hemoglobin Concent (test code = 786-4) 31.6 31-35 [facility] HospitalRed Cell Distribution Vswrk6448-66-03 15:14:00* Test Item Value Reference Range Interpretation Comments Red Cell Distribution Width (test code = 57081-8) 16.4 11.7 -14.4 H [facility] HospitalPlatelet Irfpg9036-07-65 15:14:00* Test Item Value Reference Range Interpretation Comments Platelet Count (test code = 777-3) 497 140-360 H [facility] HospitalNeutrophils (%) (Auto)2016-12-22 15:14:00 * Test Item Value Reference Range Interpretation Comments Neutrophils (%) (Auto) (test code = 66204-8) 59.3 38.7-80.0 [facility] HospitalLymphocytes (%) (Auto)2016-12-22 15:14:00 * Test Item Value Reference Range Interpretation Comments Lymphocytes (%) (Auto) (test code = 736-9) 30.1 18.0-39.1 [facility] HospitalMonocytes (%) (Auto)2016-12-22 15:14:00* Test Item Value Reference Range Interpretation Comments Monocytes (%) (Auto) (test code = 5905-5) 7.8 4.4-11.3 [facility] HospitalEosinophils (%) (Auto)2016-12-22 15:14:00 * Test Item Value Reference Range Interpretation Comments Eosinophils (%) (Auto) (test code = 713-8) 1.7 0.0-6.0 [facility] HospitalBasophils (%) (Auto)2016-12-22 15:14:00* Test Item Value Reference Range Interpretation Comments Basophils (%) (Auto) (test code = 706-2) 0.7 0.0-1.0 [facility] HospitalIM GRANULOCYTES %2016-12-22 15:14:00* Test Item Value Reference Range Interpretation Comments IM GRANULOCYTES % (test code = IM GRANULOCYTES %) 0.4 0.0- 1.0 [facility] HospitalNeutrophils # (Auto)2016-12-22 15:14:00* Test Item Value Reference Range Interpretation Comments Neutrophils # (Auto) (test code = 751-8) 8.2 2.1-6.9 H [facility] HospitalLymphocytes # (Auto)2016-12-22 15:14:00* Test Item Value Reference Range Interpretation Comments Lymphocytes # (Auto) (test code = 03278-0) 4.2 1.0-3.2 H [facility] HospitalMonocytes # (Auto)2016-12-22 15:14:00* Test Item Value Reference Range Interpretation Comments Monocytes # (Auto) (test code = 742-7) 1.1 0.2-0.8 H [facility] HospitalEosinophils # (Auto)2016-12-22 15:14:00* Test Item Value Reference Range Interpretation Comments Eosinophils # (Auto) (test code = 711-2) 0.2 0.0-0.4 [facility] HospitalBasophils # (Auto)2016-12-22 15:14:00* Test Item Value Reference Range Interpretation Comments Basophils # (Auto) (test code = 704-7) 0.1 0.0-0.1 [facility] HospitalAbsolute Immature Granulocyte (auto 2016-12-22 15:14:00* Test Item Value Reference Range Interpretation Comments Absolute Immature Granulocyte (auto (ortega t code = Absolute Immature Granulocyte (auto) 0.05 0-0.1 [facility] HospitalUrine Hmlge2514-05-65 15:01:00* Test Item Value Reference Range Interpretation Comments Urine Color (test code = 5778-6) YELLOW YELLOW [facility] HospitalUrine Bprbjbc4804-89-87 15:01:00* Test Item Value Reference Range Interpretation Comments Urine Clarity (test code = 15846-1) HAZY CLEAR [facility] HospitalUrine Specific Zvxrcrv0631-86-38 15:01:00 * Test Item Value Reference Range Interpretation Comments Urine Specific [place] (test code = 5811-5) 1.015 1.010-1.02 5 [facility] HospitalUrine oI5075-61-08 15:01:00* Test Item Value Reference Range Interpretation Comments Urine pH (test code = 55755-4) 5 5-7 [facility] HospitalUrine Leukocyte Wgfbudxf8732-86-08 15:01:00* Test Item Value Reference Range Interpretation Comments Urine Leukocyte Esterase (test code = 5799-2) TRACE NEGATIVE H [facility] HospitalUrine Mcadkzp5195-59-64 15:01:00* Test Item Value Reference Range Interpretation Comments Urine Nitrite (test code = 65716-0) NEGATIVE NEGATIVE [facility] Zvswzna9616-41-65 15:01:00* Test Item Value Reference Range Interpretation Comments Urine Protein (test code = 5804-0) 3+ NEGATIVE H [facility] Glucose (UA)2016-12-22 15:01:00* Test Item Value Reference Range Interpretation Comments Urine Glucose (UA) (test code = 2349-9) NEGATIVE NEGATIVE [facility] HospitalUrine Vfyvavi0901-15-41 15:01:00* Test Item Value Reference Range Interpretation Comments Urine Ketones (test code = 39709-4) NEGATIVE NEGATIVE [facility] Aelhcfwgdhim3086-28-03 15:01:00* Test Item Value Reference Range Interpretation Comments Urine Urobilinogen (test code = 22076-5) 0.2 0.2-1 [facility] HospitalUrine Qspiemzfq7104-21-71 15:01:00* Test Item Value Reference Range Interpretation Comments Urine Bilirubin (test code = 1978-6) NEGATIVE NEGATIVE [facility] HospitalUrine Lceoz0044-64-96 15:01:00* Test Item Value Reference Range Interpretation Comments Urine Blood (test code = 54463-5) TRACE NEGATIVE H [facility] HospitalUrine Ivdfd3310-10-44 15:01:00* Test Item Value Reference Range Interpretation Comments Urine Color (test code = 5778-6) YELLOW YELLOW [facility] HospitalUrine Mgqsxhe3820-65-05 15:01:00* Test Item Value Reference Range Interpretation Comments Urine Clarity (test code = 60497-3) HAZY CLEAR [facility] HospitalUrine Specific Ehojpdx2719-50-32 15:01:00 * Test Item Value Reference Range Interpretation Comments Urine Specific [place] (test code = 5811-5) 1.015 1.010-1.02 5 [facility] HospitalUrine aO8192-11-61 15:01:00* Test Item Value Reference Range Interpretation Comments Urine pH (test code = 85678-0) 5 5-7 [facility] HospitalUrine Leukocyte Jbqtteew2612-02-70 15:01:00* Test Item Value Reference Range Interpretation Comments Urine Leukocyte Esterase (test code = 5799-2) TRACE NEGATIVE H [facility] Lwbilya4232-53-26 15:01:00* Test Item Value Reference Range Interpretation Comments Urine Nitrite (test code = 29220-3) NEGATIVE NEGATIVE [facility] Wkasmsc1283-36-30 15:01:00* Test Item Value Reference Range Interpretation Comments Urine Protein (test code = 5804-0) 3+ NEGATIVE H [facility] Glucose (UA)2016-12-22 15:01:00* Test Item Value Reference Range Interpretation Comments Urine Glucose (UA) (test code = 2349-9) NEGATIVE NEGATIVE [facility] HospitalUrine Njaopxd1956 15:01:00* Test Item Value Reference Range Interpretation Comments Urine Ketones (test code = 55004-3) NEGATIVE NEGATIVE [facility] Alnonpaeuykf6894-60-43 15:01:00* Test Item Value Reference Range Interpretation Comments Urine Urobilinogen (test code = 00544-6) 0.2 0.2-1 [facility] Rmuyygadd4262-57-75 15:01:00* Test Item Value Reference Range Interpretation Comments Urine Bilirubin (test code = 1978-6) NEGATIVE NEGATIVE [facility] Nnbiw1991-36-99 15:01:00* Test Item Value Reference Range Interpretation Comments Urine Blood (test code = 71120-4) TRACE NEGATIVE H [facility] HospitalUrine Pjxce1392-39-45 15:01:00* Test Item Value Reference Range Interpretation Comments Urine Color (test code = 5778-6) YELLOW YELLOW [facility] HospitalUrine Zdkopqe3111-35-67 15:01:00* Test Item Value Reference Range Interpretation Comments Urine Clarity (test code = 30989-3) HAZY CLEAR [facility] HospitalUrine Specific Koagozg7638-78-19 15:01:00 * Test Item Value Reference Range Interpretation Comments Urine Specific [place] (test code = 5811-5) 1.015 1.010-1.02 5 [facility] HospitalUrine rO2169-68-22 15:01:00* Test Item Value Reference Range Interpretation Comments Urine pH (test code = 17141-1) 5 5-7 [facility] HospitalUrine Leukocyte Oaukdxlr2952-05-96 15:01:00* Test Item Value Reference Range Interpretation Comments Urine Leukocyte Esterase (test code = 5799-2) TRACE NEGATIVE H [facility] HospitalUrine Rpdljee4655-13-66 15:01:00* Test Item Value Reference Range Interpretation Comments Urine Nitrite (test code = 97197-7) NEGATIVE NEGATIVE [facility] HospitalUrine Joxlftc9890-17-71 15:01:00* Test Item Value Reference Range Interpretation Comments Urine Protein (test code = 5804-0) 3+ NEGATIVE H [facility] HospitalUrine Glucose (UA)2016-12-22 15:01:00* Test Item Value Reference Range Interpretation Comments Urine Glucose (UA) (test code = 2349-9) NEGATIVE NEGATIVE [facility] HospitalUrine Jsghtsq2546-16-81 15:01:00* Test Item Value Reference Range Interpretation Comments Urine Ketones (test code = 13111-6) NEGATIVE NEGATIVE [facility] HospitalUrine Mjgzvwiqsasy4363-73-83 15:01:00* Test Item Value Reference Range Interpretation Comments Urine Urobilinogen (test code = 01184-2) 0.2 0.2-1 [facility] HospitalUrine Ipceuwjvk5064-23-01 15:01:00* Test Item Value Reference Range Interpretation Comments Urine Bilirubin (test code = 1978-6) NEGATIVE NEGATIVE [facility] HospitalUrine Rnhmd7598-62-93 15:01:00* Test Item Value Reference Range Interpretation Comments Urine Blood (test code = 38311-3) TRACE NEGATIVE H [facility] HospitalCT ABDOMEN WO [facility] [address] [address] Patient Name: GABBIE TOBIN MR #: [id number] : 1955 Age/Sex: 61/F Req #: [id number] Adm Physician: KYLEE ACOSTA MD Ordered by: USMAN MARIE, [place] Report #: [id number] Location: MED/SURG3 Room/Bed: [facility] Procedure: [id number] CT/C T ABDOMEN WO Exam Date: 07/21/17 Exam Time: 1200 REPORT STATUS: Signed PROCEDURE: CT ABDOMEN WITHOUT CONTRAST COMPARIS ON: [facility], US, US RETROPERITONEAL ( KIDNEY )., 12/11/2015, 11:34. [facility], CT, CT ABDOMEN WO, 05/06/2015, 14:42. NA CATIONS: Adrenal adenoma TECHNIQUE: Routine protocol Volumetric CT abdome n. No intravenous or enteric contrast. Multiplanar reformatted images. FINDINGS: 1.3 cm calcified left lower lobe granuloma. Bibasilar interstitial scar. Lung bases otherwise clear. No pleural effusions. Normal heart size. Liver: Normal Gallbladder: Cholecystectomy. No bile duct dilatation. P ancreas: Normal Spleen: Splenectomy Adrenal glands: Normal bilaterally. Specifically, no nodularity. Kidneys: Right nephrectomy. 2.2 cm coil pack in t he left upper renal hilum consistent with treated pseudoaneurysm. 2 mm left i nferior pole nonobstructing stone. Otherwise, normal. Imaged portions o f the bowel are of normal caliber. No free fluid. Vasculature: Scattered a therosclerotic sclerosis. Normal caliber. Lymph nodes: Normal Soft tissu es: Generalized sarcopenia. Skeleton: Intact. Multilevel degenerative disc dis ease in the thoracic spine. CONCLUSION: 1. No evidence of adrenal a denoma. 2. Right nephrectomy. 3. Treated left renal pseudoaneurysm, stable. 4. Nonobstructive punctate left inferior pole nephrolithiasis. Dictated by: Alka Sofia M.D. on 07/21/2017 at 12:27 Electronically appro yuliet by: Alka Sofia M.D. on 07/21/2017 at 12:27 Dictat ed By: ALKA SOIFA MD 1227 COPY TO: [place] US RENAL RETROPERITONEAL COMP [place] [address] Patient Name: GABBIE TOBIN MR #: [id number] : 1955 Age/Sex: 61/F Req #: [id number] Adm Physician: KYLEE ACOSTA MD Ordered by: PINA RUCKER MD Report #: [id number] Location: MED/SURG3 Room/Bed: [facility] Procedure: [id number] US/U S RENAL RETROPERITONEAL COMP Exam Date: Exam Time: REPORT STATUS: Signed PROCEDURE: US RETROPERITONEAL ( KIDNEY ). COMPARISON: [facility], , US RETROPERITONEAL ( KIDNEY )., 01/15/2016, 17:52. INDICATIONS: CKD TECHNIQUE: Ultrasound examin ation was performed of the kidneys and bladder. FINDINGS: Right Ki dney: Status post nephrectomy. Left Kidney: Length: 11.2 cm Appear ance: Mildly increased echogenicity. Collecting system: Mild hydronephrosis Stones: There is a shadowing echogenic focus in the upper pole of the left ki dney, unchanged. Cyst/Mass: There is 1.9 x 1.6 x 1.7 cm simple cyst in the interpolar region, previously measuring 2.1 x 1.5 x 2.0 cm. There is a simple cyst in the lower pole measuring 1.7 x 1.2 x 1.2 cm and previously measuring 0.9 x0. 9 x 1.0 cm. CONCLUSION: 1. MILDLY INCREASED ECHOGEN ICITY OF THE LEFT RENAL CORTEX SUGGESTIVE OF MEDICAL RENAL DISEASE. NO HYDRON EPHROSIS . 2. STATUS POST RIGHT NEPHRECTOMY. NO ABNORMALITY IN THE RI GHT RENAL FOSSA. Janki CASILLAS M.D. DICTATED BY: Janki CASILLAS M.D. ON 07/20/2017 AT 14:01 ELECTRONICALLY APPROVED BY: Janki CASILLAS M.D. ON 07/20/2017 AT 14:01 Dictated By: DANIE CASILLAS MD, MD 1401 Transcribed By: SUSU on 07/20/17 1401 COPY TO: PINA RUCKER MD CHEST SINGLE (PORTABLE) [place] [address] Patient Name: GABBIE TOBIN MR #: [id number] : 1955 Age/Sex: 61/F Req #: [id number] Adm Physician: Ordered by: IRIS MOREL MD Report #: [id number] Location: ER Room/Bed: Procedure: [id number] DX/CHEST SINGLE (PORTABLE) Exam Date: 07/18/17 Exam Time: 1645 REPORT STATUS: Signed EXAMINATION: Chest, CHEST SINGLE (PORTABLE) INDICATION: Ches t pain COMPARISON: Portable chest 07/15/2017 FINDINGS: L SIMON: None. Heart: Normal cardiac silhouette. Vascular: The pulmonar y vasculature is within normal limits. Atherosclerotic calcifications of the aortic arch. Mediastinum: No mediastinal, hilar, or axillary mass or lympha denopathy. Lungs: No parenchymal mass. No focal consolidation. Pleura : No pleural effusion. No pneumothorax. Bones: No acute osseous abnormali ty. Degenerative changes of the thoracic spine. Soft tissues: Normal. Impression: No acute radiographic abnormality. Signed by: Dr. Demetrio Taylor M.D. on 07/18/2017 5:16 PM Dictated By: DEMETRIO TAYLOR MD [facility] Signed By: DEMETRIO TAYLOR MD on 07/18/171715 Transcribed By: ALEXIA on 07/18 COPY TO: IRIS MOREL MD CT ABDOMEN/PELVIS WO [place] [address] Patient Name: GABBIE TOBIN MR #: [id number] : Age/Sex: 61/F Req #: [id number] Adm Physician: KYLEE PONCE MD Ordered by: IRIS MORLE MD Report #: [id number] Location: [facility] Room/Bed: [place] [address] Procedure: [id number] CT/CT ABDOMEN/PELVIS WO Exam Date: Exam Time: REP ORT STATUS: Signed EXAM: CT Abdomen and Pelvis WITHOUT contrast INDICA TION: Abdominal pain COMPARISON: None. TECHNIQUE: Abdomen and pelvis were sc anned utilizing a multidetector helical scanner from the lung base to the pubi c symphysis. Coronal and sagittal reformations were obtained. The lack of int ravenous contrast limits the evaluation of the solid organs, vasculature, and possible lymphadenopathy. Protocol: General survey without contrast IV CONTRAST: No intravenous contrast was administered as per physician request. O RAL CONTRAST: None. COMPLICATIONS: None. RADIATION DOSE: Total Exam DLP: 844.7 mGy*cm. CTDIvol has been reviewed. It is below the limits set by the [facility] Protocol Committee (RPC). FINDINGS: LINES: None. Lower thorax: No parenchymal abnormality. No pneumothorax. No pleural effusion. C alcified granuloma in the left lower lobe. Liver: No focal mass. No he patomegaly. Normal parenchyma. Gallbladder: Cholecystectomy. Biliary tree: No intrahepatic duct dilation. No extrahepatic duct dilation. Spleen: No spl enomegaly. No focal mass. Pancreas: No focal mass. Normal pancreatic duct. N o peripancreatic inflammatory changes. Kidneys: Right nephrectomy. No obs tructing calculi. No hydronephrosis. No cysts. No perinephric soft tissue in flammatory changes. Embolization coils are present in a left renal artery an eurysm. Adrenal glands: No adrenal nodules.. Bladder: Normal urinary bl adder. Pelvic organs: Hysterectomy. Normal ovaries. GI: No bowel wal l thickening. No air-fluid levels. The stomach and small bowel are normal. The colon is normal. No appendix is visualized. A moderate amount of retaine d feces limits intraluminal evaluation of the colon. Peritoneum/retroperito neum: No pneumoperitoneum. No ascites. No drainable fluid collection. Ly mph nodes: No lymphadenopathy. . Vessels: No focal abnormality. Athero sclerotic calcifications. Limited evaluation. Bones: No focal abnormali ty. Degenerative changes of the lumbar spine. Soft tissues: No focal abnorma lity. IMPRESSION: No acute abnormality of the abdomen and pelvis. Signed by: Dr. Demetrio Taylor M.D. on 07/18/2017 6:39 PM Dictated By: DEMETRIO TAYLOR MD 38 T ranscribed By: ALEXIA on 07/18/171838 COPY TO: IRIS MOREL MD CHEST [facility] (PORTABLE) [place] [address] Patient Name: GABBIE TOBIN MR #: [id number] : 1955 Age/Sex: 61/F Req #: [id number] Adm Physician: KYLEE ACOSTA MD Ordered by: CHU MCALLISTER MD Report #: [id number] Location: [facility]/SURG Room/Bed: Formerly named [facility] Procedure: [id number] DX/C HEST SINGLE (PORTABLE) Exam Date: 07/15/17 Exam Time : 1210 REPORT STATUS: Signed PROCEDURE: A single AP view of the chest . COMPARISON: Portable chest 07/11/2017. INDICATIONS: chf, dyspnea FINDINGS: Lines/tubes: None. Lungs: Bilateral perihilar opaci fications. Bibasilar atelectasis. No parenchymal mass. Pleura: There i s no pleural effusion or pneumothorax. Heart and mediastinum: The heart a nd the mediastinum are unremarkable. Bones: No acute bony abnormality. De generative changes of the thoracic spine. IMPRESSION: Bilateral perihilar opacifications may represent pulmonary edema. Dictated by: Yong Taylor M.D. on 07/15/2017 at 12:51 Electronically approved by: Demetrio leiva M.D. on 07/15/2017 at 12:51 Dictated By: DEMETRIO TAYLOR MD Elec tronically Signed By: DEMETRIO TAYLOR MD on 07/15/17 1251 Transcribed By: SUSU on 07/15/17 1251 COPY TO: CHU MCALLISTER MD CHEST SINGLE (PORTABLE) [place] [address] Patient Name: GABBIE TOBIN MR #: [id number] : Age/Sex: 61/F Req #: [id number] Adm Physician: KYLEE PONCE MD Ordered by: PINA RUCKER MD Report #: [id number] Location : MED/SURG2 Room/Bed: 200-1 Procedure: [id number] DX/C HEST SINGLE (PORTABLE) Exam Date: 07/11/17 Exam Time : 1100 REPORT STATUS: Signed EXAMINATION: CHEST SINGLE (PORTABLE) INDICATION: S CHF COMPARISON: Chest x-ray 07/09/2017 F INDINGS: AP view TUBES and LINES: None. LUNGS: Lungs are well in flated. There are bibasilar atelectasis. There is mild prominence of the cent ral pulmonary vasculature, consistent with pulmonary venous congestion. P LEURA: No pleural effusion or pneumothorax. HEART AND MEDIASTINUM: Cardia c size is mildly enlarged. BONES AND SOFT TISSUES: No acute osseous le sharmaine. Soft tissues are unremarkable. UPPER ABDOMEN: No free air under th e diaphragm. IMPRESSION: Mild cardiomegaly with increasing central p ulmonary venous congestion. Signed by: Dr. Jeronimo Powell M.D. on 07/11/2017 11 :21 AM Dictated By: JERONIMO POWELL MD 1121 COPY TO: LADONNA RUCKER MD VQ LUNG SCAN VENT PERFUSION [place] [address] Patient Name: GABBIE TOBIN MR #: [id number] : 1955 Age/Sex: 61/F Req #: [id number] Adm Physician: KYLEE ACOSTA MD Ordered by: KYLEE ACOSTA MD Report #: [id number] Location: MED/SURG2 Room/Bed: 200 Procedure: [id number] NM/VQ LUNG SCAN VENT PERFUSION Exam Date: Exam Time: REPORT STATUS: Signed EXAM: VQ LUNG SCAN VENT PERFUSION DATE: 06/21 12:00 AM INDICATION: S SOB COMPARISON: 07.09.17 FINDINGS: Ve ntilation images of the lungs were obtained in multiple projections following administration of 17.7 mCi of Tc-99m DTPA via nebulization. Distribution of t racer activity is irregular throughout the lungs secondary to marked cardiomeg valencia. Heterogeneous appearance of ventilation and perfusion likely related to soft tissue attenuation artifact. Mild radiotracer retention is noted. P erfusion images of the lungs in multiple projections were obtained following i ntravenous administration of 6.6 mCi of Tc-99m MAA. Distribution of tracer act ivity is irregular throughout the lungs. Heterogeneous appearance of ventilat ion and perfusion likely related to soft tissue attenuation artifact. There a re no unmatched segmental perfusion defects. The perfusion images are well mat ched to the aerosol images. The cardiac silhouette is markedly enlarged ext ending into and occupying space in the right anterior lung with small right pl eural effusion. IMPRESSION: Scan findings represent a Low probability for acute pulmonary embolic disease based on the PIOPED II criteria. Sign ed by: Dr Lauri Rivero MD on 07/10/2017 12:01 AM Dictated By: LAURI SANTORO MD 0001 Transcr ibed By: ALEXIA on 07/10/17 0001 COPY TO: KYLEE ACOSTA MD MRI BRAIN WO [place] [address] Patient Name: GABBIE TOBIN MR #: [id number] : 1955 Age/Sex: 61/F Req #: [id number] Adm Physician: KYLEE ACOSTA MD Ordered by: KYLEE ACOSTA MD Report #: [id number] Location: MED/SURG Room/Bed: [facility] Procedure: [id number] MRI/M RI BRAIN WO Exam Date: Exam Time: REPORT STA TUS: Signed History: Left-sided weakness Comparison studies: CT head 017 Technique: Sagittal T2; axial DWI, FLAIR, MPGR, T1, Coronal FLAIR. Intravenous contrast: None Findings: Scalp: Normal in signal . No mas ses . Bone marrow: Normal in signal intensity. Extra-axial: No masses, no fluid collections. Brain sulci: Appropriate for age. Ventricles: Norm al in size . No hydrocephalus . Parenchyma: Small scattered T2/FLAIR hype rintensities of the periventricular and the white matter No masses, hemorrha ge, acute or chronic vascular insults. Suprasellar region: No abnormalities . Craniocervical junction: No abnormalities. Patent foramen magnum. No Chiar i one malformation. Vessels: Normal flow-voids in the arteries and sinuses. IMPRESSION: 1. No acute intracranial abnormalities. 2. Mild chr onic microvascular ischemic changes of the white matter Signed by: DR Can Escobar M.D. on 12/23/2016 3:40 PM Dictated By: CAN ANGULO MD 279 Transcri bed By: ALEXIA on 12/23/16 154 COPY TO: KYLEE ACOSTA MD CT BRAIN WO [place] [address] Patient Name: GABBIE TOBIN MR #: [id number] : 1955 Age/Sex: 61/F Req #: [id number] Adm Physician: Ordered by: CAYETANO ORDONEZ MD Report #: [id number] Location: Room/Bed: Procedure: [id number] CT/CT BRAIN WO Exam Date: 05/09 Exam Time: 1415 REPORT STATUS: Signed E xamination: CT BRAIN WITHOUT CONTRAST History:61 year old female with dizzi ness and left sided weakness. Comparison studies:None Technique: Axial images were obtained from the skull base to the vertex. Coronal and sagittal i mages reconstructed from the axial data. Intravenous contrast: None Findi ngs: Scalp: No abnormalities. Bones: No fractures, blastic or lytic lesio ns. Brain sulci: Appropriate for age. Ventricles: Normal in size and conf iguration. No hydrocephalus. Extra-axial space: No abnormalities. Pa renchyma: There are patchy areas of hypoattenuation in the periventricular an d subcortical white matter, nonspecific. No masses, hemorrhage, or acute or chronic cortical based vascular insults. Sellar/suprasellar region: No abn ormalities. Craniocervical junction: Patent foramen magnum. No Chiari one malf ormation. Incidental findings: Atherosclerotic calcification of the cave rnous and supraclinoid internal carotid and V4 segments of the bilateral vert ebral arteries. Impression: 1. No acute intracranial abnormalities. 2. Mild chronic microvascular ischemic change. Signed by: Dr. Audrey larson M.D. on 12/22/2016 3:16 PM Dictated By: AUDREY Craven 6202 Trans cribed By: ALEXIA on 12/22/16 1516 COPY TO: CAYETANO ORDONEZ MD
--- NOTE | 2020-01-09 11:16 | Emergency Department Note ---
History of Present Illnes History of Present Illness History of Present Illness This is a 64 year old female arrived to the ED with bleeding from dialysis catheter. Pt states bleeding started suddenly . Onset (how long ago): minute(s) Severity: moderate Onset quality: sudden Duration (how long): hour(s) Timing of current episode: constant Progression: worsening Chronicity: new Exacerbating factors: none Associated symptoms: Reports denies other symptoms; Denies fever/chills, Denies headaches, Denies rash, Denies seizure, Denies shortness of breath Past Medical/Family History Physician Review I have reviewed the patient's past medical and family history. Any updates have been documented here. Past Medical History Past Medical History: Hypertension, COPD, [place], Cancer, UTI's, Hyperlipedemia, Lupus Other Medical History: ARTHRITIS, ANEMIA, CHRONIC BRONCHITIS AND SINUSITIUS, CUBICLE TUNNEL, HEART DISEASE, REFLUX, SLEEP APNEA, SPINAL STENOSIS, GASTROPERESIS, KINDEY STONES, Past Surgical History: Cholecysctectomy, Appendectomy, Hysterectomy, Other Surgery: R TOTAL NEPHRECTOMY (10/2014), SINUS SX (2004), SPLEENECTOMY (1965), TONSILLECTOMY & ADENOIDECTOMY (1968) Social History Smoking Cessation: Never Smoker Alcohol Use: Social Other Last Tetanus: 2017 Review of Systems Review of Systems Constitutional: Reports no symptoms EENTM: Reports no symptoms Cardiovascular: Reports no symptoms Respiratory: Reports no symptoms Gastrointestinal: Reports no symptoms Genitourinary: Reports no symptoms Musculoskeletal: Reports no symptoms Integumentary: Reports as per HPI Neurological: Reports no symptoms Psychological: Reports no symptoms Endocrine: Reports no symptoms Hematological/Lymphatic: Reports no symptoms Physical Exam Related Data Allergies: Coded Allergies: atorvastatin (Verified Allergy, Intermediate, itching and muscle cramps, 01/09/20) Penicillins (Verified Allergy, Unknown, 01/09/20) Sulfa (Sulfonamide Antibiotics) (Verified Allergy, Unknown, 01/09/20) albuterol (Verified Allergy, Unknown, 01/09/20) amoxicillin (Verified Allergy, Unknown, 01/09/20) cephalexin (Verified Allergy, Unknown, 01/09/20) cilastatin (Verified Allergy, Unknown, RASH, 01/09/20) RASH codeine (Verified Allergy, Unknown, 01/09/20) erythromycin base (Verified Allergy, Unknown, 01/09/20) gabapentin (Verified Allergy, Unknown, 01/09/20) imipenem (Verified Allergy, Unknown, RASH, 01/09/20) RASH meperidine (Verified Allergy, Unknown, 01/09/20) methocarbamol (Verified Allergy, Unknown, 01/09/20) morphine (Verified Allergy, Unknown, 01/09/20) tetracycline (Verified Allergy, Unknown, 01/09/20) lactose (Verified Adverse Reaction, Severe, 01/09/20) Pt is Lactose Intolerant. Uncoded Allergies: TAPE (Allergy, Mild, RASH, 04/17/09) Vital signs reviewed: Yes Physical Exam CONSTITUTIONAL Constitutional: Present well-developed, Present well-nourished HENT HENT: Present normocephalic, Present atraumatic, Present oropharynx clear/moist, Present nose normal HENT L/R: Present left ext ear normal, Present right ext ear normal EYES Eyes: Reports PERRL, Reports conjunctivae normal NECK Neck: Present ROM normal PULMONARY Pulmonary: Present effort normal, Present breath sounds normal CARDIOVASCULAR Cardiovascular: Present regular rhythm, Present heart sounds normal, Present normal rate GASTROINTESTINAL Abdominal: Present soft, Present nontender, Present bowel sounds normal GENITOURINARY Genitourinary: Present exam deferred SKIN Skin: Present warm, Present dry, Present other (left upper extremity bleeding from AV graft) MUSCULOSKELETAL Musculoskeletal: Present ROM normal NEUROLOGICAL Neurological: Present alert PSYCHOLOGICAL Psychological: Present mood/affect normal, Present judgement normal Results Laboratory Lab results reviewed: Yes Laboratory comments Laboratory Tests Test 01/09/20 11:43 White Blood Count 16.14 x10e3/uL (4.8-10.8) Red Blood Count 3.82 x10e6/uL (3.6-5.1) Hemoglobin 11.2 g/dL (12.0-16.0) Hematocrit 33.9 % (34.2-44.1) Mean Corpuscular Volume 88.7 fL (81-99) Mean Corpuscular Hemoglobin 29.3 pg (28-32) Mean Corpuscular Hemoglobin Concent 33.0 g/dL (31-35) Red Cell Distribution Width 17.3 % (11.7-14.4) Platelet Count 538 x10e3/uL (140-360) Neutrophils (%) (Auto) 65.5 % (38.7-80.0) Lymphocytes (%) (Auto) 25.6 % (18.0-39.1) Monocytes (%) (Auto) 6.4 % (4.4-11.3) Eosinophils (%) (Auto) 1.2 % (0.0-6.0) Basophils (%) (Auto) 0.9 % (0.0-1.0) Neutrophils # (Auto) 10.6 (2.1-6.9) Lymphocytes # (Auto) 4.1 (1.0-3.2) Monocytes # (Auto) 1.0 (0.2-0.8) Eosinophils # (Auto) 0.2 (0.0-0.4) Basophils # (Auto) 0.1 (0.0-0.1) Absolute Immature Granulocyte (auto 0.06 x10e3/uL (0-0.1) Prothrombin Time 13.6 seconds (11.9-14.5) Prothromb Time International Ratio 0.99 Sodium Level 136 mmol/L (136-145) Potassium Level 6.0 mmol/L (3.5-5.1) Chloride Level 98 mmol/L (98-107) Carbon Dioxide Level 22 mmol/L (22-29) Anion Gap 22.0 mmol/L (8-16) Blood Urea Nitrogen 64 mg/dL (7-26) Creatinine 8.06 mg/dL (0.57-1.11) Estimat Glomerular Filtration Rate 5 ML/MIN (60-) BUN/Creatinine Ratio 8 (6-25) Glucose Level 93 mg/dL (74-118) Calcium Level 9.5 mg/dL (8.4-10.2) Total Bilirubin 0.5 mg/dL (0.2-1.2) Aspartate Amino Transf (AST/SGOT) 15 IU/L (5-34) Alanine Aminotransferase (ALT/SGPT) 10 IU/L (0-55) Alkaline Phosphatase 70 IU/L (40-150) Creatine Kinase 24 IU/L (29-168) Creatine Kinase MB 0.90 ng/mL (0-5.0) Troponin I 0.015 ng/mL (0-0.300) Total Protein 6.9 g/dL (6.5-8.1) Albumin 3.0 g/dL (3.5-5.0) Globulin 3.9 g/dL (2.3-3.5) Albumin/Globulin Ratio 0.8 (0.8-2.0) Assessment & Plan Medical Decision Making MDM 64-year-old female arrived to the ED with bleeding AV graft site. Attempts made to control bleeding the ED, however, unsuccessful. Patient require hospital admission, Dr. Rivera consult it for repair. Assessment & Plan Final Impression: (1) Dialysis catheter clot or failure Depart Disposition: HOME, SELF-[facility] Meds Reported Medications Metoprolol Succinate (METOPROLOL SUCCINATE) 100 Mg Tab.er.24h, 1 TAB PO DAILY 05/13/19 Dicyclomine Hcl (DICYCLOMINE HCL) 10 Mg Capsule, 10 MG PO BID 05/13/19 Metoclopramide Hcl (REGLAN) 10 Mg Tablet, 10 MG PO TID 01/06/19 Warfarin Sodium (WARFARIN SODIUM) 3 Mg Tablet, 3 MG PO 1800, #30 TAB 01/06/19 [Metoprolol Er] No Conflict Check, 300 MG PO DAILY 01/06/19 Amlodipine Besylate (AMLODIPINE BESYLATE) 10 Mg Tablet, 10 MG PO DAILY, #30 TAB 01/06/19 Metaxalone (METAXALONE) 800 Mg Tablet, 800 MG PO QID 09/21/18 Hydralazine Hcl (HYDRALAZINE HCL) 25 Mg Tab, 50 MG PO BID, TAB 09/21/18 Hydromorphone Hcl (DILAUDID) 2 Mg Tab, 4 MG PO Q8H PRN for MODERATE PAIN (4-6) 05/23/18 [Repatha] 1 SYR No Conflict Check, 140 MG SC Q OTHER Thursday03/14/18 Ondansetron Hcl (ZOFRAN) 8 Mg Tablet, 4 MG PO Q4HR PRN for NAUSEA AND VOMITING 03/03/18 [Linzess] No Conflict Check, 290 MCG PO BID 03/03/18 Clopidogrel Bisulfate* (PLAVIX) 75 Mg Tablet, 75 MG PO DAILY, #30 TAB 03/03/18 Hydroxyzine Hcl (HYDROXYZINE HCL) 25 Mg Tablet, 25 MG PO BID PRN for ITCHING, #30 TAB 03/03/18 Bumetanide (BUMETANIDE) 1 Mg Tablet, 1 MG PO BID, #30 TAB 03/03/18 Potassium Chloride (POTASSIUM CHLORIDE) 10 Meq Tab.er.prt, 10 MEQ PO PRN for when taking fluid pill, TAB 03/03/18 Terbinafine Hcl (TERBINAFINE HCL) 250 Mg Tablet, 250 MG PO DAILY, #30 TAB 03/03/18 Clonidine Hcl (CLONIDINE HCL) 0.1 Mg Tablet, 1 TAB PO Q6H PRN for HIGH BLOOD PRESSURE, #60 TAB take for SBP > 170 07/09/17 Isosorbide Mononitrate (ISOSORBIDE MONONITRATE ER) 30 Mg Tab.er.24h, 90 MG PO BID, #30 TAB 12/22/16 Nitroglycerin (NITROGLYCERIN) 0.4 Mg Tab.subl, 0.4 MG SL Q5MIN PRN for chest pain, TAB 05/11/16 Oxybutynin Chloride (OXYBUTYNIN CHLORIDE) 5 Mg Tablet, 5 MG PO BID, #30 TAB 01/13/16 Dexlansoprazole (DEXILANT) 30 Mg Cap..mp, 60 MG PO DAILY THERAPEUTIC INTERCHANGED WITH PROTONIX PER [facility] 05/05/15 Alprazolam (ALPRAZOLAM) 1 Mg Tablet, 1 MG PO TID for anxiety, TAB 08/28/14 Liothyronine Sodium (CYTOMEL) 25 Mcg Tablet, 25 MCG PO DAILY 08/04/12 Duloxetine Hcl (CYMBALTA) 60 Mg Capsule.dr, 60 MG PO BID 08/04/12 Trazodone Hcl (TRAZODONE HCL) 100 Mg Tablet, 600 MG PO HS 08/04/12 DUSTIN NORIEGA DO Jan 09, 2020 11:14
--- OUTSIDE RECORDS SUMMARY | 2020-01-09 11:19 | XMS REPORT | Continuity of Care Document ---
Author Author [facility] t Organization [facility] Address [address] [place] [address] Phone Unavailable Care Team Providers Care Educational Interpreter Name Role Phone KYLEE ACOSTA MD PCP Blake Braswell MD Attphys [phone] KYLEE ACOSTA Attphys Unavailable HAMPEL, AN Attphys Unavailable DALIA BRASWELL Attphys Unavailable SCHIESSER, L PRISCILLA Attphys Unavailable MANEEVESE, V RONY Attphys Unavailable KYLEE ACOSTA Admphys Unavailable Payers Payer Name Policy Type Policy Number Effective Date Expiration Date S reddy [facility] [id number] I [facility] [id number] 2017 00:00:00 [facility] Problems Condition Name Condition Details Condition Category Status Onset Date Resolution Date Last Treatment Date Treating Clinician Comments Source Multiple gallstones Gallstones Problem Active 2015-05-05 00:00:00 [facility] Renal colic on right side Renal colic on right side Problem Ac tive 2014-08-25 00:00:00 [facility] Congestive heart failure CHF (congestive heart failure) Problem Active [facility] Cerebrovascular accident (CVA) CVA (cerebrovascular accident) Problem Active [facility] Chest pain Chest pain Problem Active [facility] Chronic obstructive pulmonary disease COPD (chronic ob structive pulmonary disease) Problem Active [facility] Weakness Weakness Problem Active [facility] Urinary tract infection UTI (urinary tract infection) Problem Active [facility] Atrial fibrillation with rapid ventricular response At rial fibrillation with RVR Problem Active [facility] Hypoxia Hypoxia Problem Active [facility] Respiratory distress Respiratory distress Problem Active [facility] Allergies, Adverse Reactions, Alerts Allergy Name Allergy Type Status Severity Reaction(s) Onset Date Inacti ve Date Treating Clinician Comments Source Amoxicillin-Pot Clavulanate Propensity to adverse reactions Active 2019-09-21 00:00:00 [facility] Codeine Propensity to adverse reactions Active 2019-09-21 0 0:00:00 [facility] Meperidine Propensity to adverse reactions Active 1 00:00:00 [facility] Cephalexin Propensity to adverse reactions Active 1 00:00:00 [facility] Penicillins Propensity to adverse reactions Active 2019 00:00:00 [facility] Sulfa (Sulfonamide Antibiotics) Propensity to adverse reactions Activ e 2019-09-21 00:00:00 [facility] Sulfa (Sulfonamide Antibiotics) DA Active 2018-12-20 00 :00:00 [facility] gabapentin DA Active SV 2018-12-20 00:00:00 [facility] Penicillins DA Active SV 2018-03-31 00:00:00 [facility] Bojpvga-Wfv-Skf Reductase Inhibitor DA Active 9 00:00:00 [facility] morphine DA Active SV 2018-03-31 00:00:00 [facility] codeine DA Active SV 2018-03-31 00:00:00 [facility] methocarbamol DA Active SV 2018-03-31 00:00:00 [facility] cephalexin DA Active SV 2018-03-31 00:00:00 [facility] tetracycline DA Active SV 2018-03-31 00:00:00 [facility] erythromycin base DA Active SV 2018-03-31 00:00:00 [facility] clavulanic acid DA Active 2018-03-31 00:00:00 [facility] imipenem DA Active 2018-03-31 00:00:00 [facility] adhesive tape DA Active 2018-03-31 00:00:00 [facility] amoxicillin DA Active 2018-03-31 00:00:00 [facility] cilastatin DA Active 2018-03-31 00:00:00 [facility] meperidine DA Active 2018-03-31 00:00:00 [facility] Penicillin Allergy to Substance Active 2018-01-25 00:00:00 [facility] Sulfa (Sulfonamide Antibiotics) Allergy to Substance Active 2018-01-25 00:00:00 [facility] Morphine Allergy to Substance Active 2018-01-25 00:00:00 [facility] Codeine Allergy to Substance Active 2018-01-25 00:00:00 [facility] Methocarbamol Allergy to Substance Active 2018-01-25 00:00: 00 [facility] Albuterol Allergy to Substance Active 2018-01-25 00:00:00 [facility] Lactose Propensity to adverse reactions Active Severe 00:00:00 [facility] Cephalexin Allergy to Substance Active 2018-01-25 00:00:00 [facility] Tetracycline Allergy to Substance Active 2018-01-25 00:00:0 0 [facility] Erythromycin base Allergy to Substance Active 2018-01-25 00 :00:00 [facility] Imipenem Allergy to Substance Active RASH 2018-01-25 00:00:00 [facility] Amoxicillin Allergy to Substance Active 2018-01-25 00:00:00 [facility] Gabapentin Allergy to Substance Active 2018-01-25 00:00:00 [facility] Cilastatin Allergy to Substance Active RASH 2018-01-25 00:00:00 [facility] Meperidine Allergy to Substance Active 2018-01-25 00:00:00 [facility] Atorvastatin Allergy to Substance Active Moderate itching and m uscle cramps 2018-01-25 00:00:00 [facility] Penicillins DA Active SV 2016-03-07 00:00:00 [facility] Eitgtzt-Nsi-Pfw Reductase Inhibitor DA Active SV 2016-02-21 00:00:00 [facility] morphine DA Active SV 2016-03-07 00:00:00 [facility] codeine DA Active SV 2016-03-07 00:00:00 [facility] methocarbamol DA Active SV 2016-03-07 00:00:00 [facility] cephalexin DA Active SV 2016-03-07 00:00:00 [facility] tetracycline DA Active SV 2016-03-07 00:00:00 [facility] erythromycin base DA Active SV 2016-03-07 00:00:00 [facility] clavulanic acid DA Active SV 2016-03-07 00:00:00 [facility] imipenem DA Active SV 2016-03-07 00:00:00 [facility] adhesive tape DA Active SV 2016-03-07 00:00:00 [facility] amoxicillin DA Active SV 2016-03-07 00:00:00 [facility] cilastatin DA Active SV 2016-03-07 00:00:00 [facility] meperidine DA Active SV 2016-03-07 00:00:00 [facility] TAPE Allergy to Substance Active Mild RASH 2009-04-17 00:00:00 [facility] Social History Social Habit Start Date Stop Date Quantity Comments Source History SDOH Alcohol Std Drinks [facility] History SDOH Alcohol Binge [facility] Sex Assigned At [facility] Tobacco use and exposure 2019-09-21 00:00:00 2019-09-21 00:00:00 Brian pineda used [facility] Alcohol intake 2019-09-21 00:00:00 2019-09-21 00:00:00 Current non-drinker of alcohol (finding) [facility] History SDOH Alcohol Frequency 2019-09-21 00:00:00 2019-09-21 00:00:0 0 1 [facility] Smoking Status Start Date Stop Date Source Never smoker [facility] Medications Ordered Medication Name Filled Medication Name Start Date Stop Da te Current Medication? Ordering Clinician Indication Dosage Frequency Signature (SIG) Comments Components Source ELIQUIS 5 MG tablet 2019-09-10 00:00:00 Yes [facility] amiodarone (PACERONE) 200 MG tablet 2019-09-08 00:00:00 Yes [facility] cloNIDine HCL (CATAPRES) 0.1 MG tablet 2019-09-08 00:00:00 Yes [facility] DULoxetine (CYMBALTA) 30 MG capsule 2019-09-08 00:00:00 Yes [facility] metoclopramide HCl (REGLAN) 10 MG tablet 2019-09-08 00:00:00 Y es [facility] r metoprolol tartrate (LOPRESSOR) 25 MG tablet 2019-09-08 00:00:00 Yes [facility] midodrine (PROAMATINE) 10 MG tablet 2019-09-08 00:00:00 Yes [facility] clopidogreL (PLAVIX) 75 mg tablet 2019-09-08 00:00:00 Yes [facility] pantoprazole (PROTONIX) 40 MG tablet 2019-09-08 00:00:00 Yes [facility] traZODone (DESYREL) 100 MG tablet 2019-09-08 00:00:00 Yes [facility] ezetimibe (ZETIA) 10 mg tablet 2019-09-08 00:00:00 Yes [facility] fluconazole (DIFLUCAN) 100 MG tablet 2019-09-08 00:00:00 Yes [facility] levoFLOXacin (LEVAQUIN) 500 MG tablet 2019-09-08 00:00:00 Yes [facility] Metronidazole 500 Mg Tablet, 500 Mg Oral Metronidazole 500 Mg Tablet, 500 Mg Oral 2015-05-11 00:00:00 2016-01-20 00:00:00 No Jaspreet grande Md 500 Three Times A Day [facility] Alprazolam 1 Mg Tablet Alprazolam 1 Mg Tablet Yes 1 Three Times A Day for Anxiety [facility] Amlodipine Besylate 10 Mg Tablet Amlodipine Besylate 10 Mg Tablet Yes 10 Daily [facility] Bumetanide 1 Mg Tablet Bumetanide 1 Mg Tablet Yes 1 Twice A Day [facility] Clonidine Hcl 0.1 Mg Tablet Clonidine Hcl 0.1 Mg Tablet Yes 1 Every 6 Hours as needed for High Blood Pressure [facility] Clopidogrel Bisulfate (Plavix) 75 Mg Tablet Clopidogre l Bisulfate (Plavix) 75 Mg Tablet Yes 75 Daily [facility] Dexlansoprazole (Dexilant) 30 Mg Cap. Dexlansopra zole (Dexilant) 30 Mg Cap. Yes 60 Daily [facility] Dicyclomine Hcl 10 Mg Capsule Dicyclomine Hcl 10 Mg Capsule Yes 10 Twice A Day [facility] Duloxetine Hcl (Cymbalta) 60 Mg Capsule. Duloxetine Hcl (Cymbalta) 60 Mg Capsule. Yes 60 Twice A Day [facility] Hydralazine Hcl 25 Mg Tab Hydralazine Hcl 25 Mg Tab Yes 50 Twice A Day [facility] Hydromorphone Hcl (Dilaudid) 2 Mg Tab Hydromorphone Hcl (Dilaudid) 2 Mg Tab Yes 4 Every 8 Hours as needed for Moderate Josh n (4-6) [facility] Hydroxyzine Hcl 25 Mg Tablet Hydroxyzine Hcl 25 Mg Tablet Y es 25 Twice A Day as needed for Itching [facility] Isosorbide Mononitrate (Isosorbide Mononitrate Er) 30 Mg Tab.er.24h Isosorbide Mononitrate (Isosorbide Mononitrate Er) 30 Mg Tab.er.24h Yes 90 Twice A Day [facility] Linzess Linzess Yes 290 Twice A Day [facility] Liothyronine Sodium (Cytomel) 25 Mcg Tablet Liothyroni ne Sodium (Cytomel) 25 Mcg Tablet Yes 25 Daily [facility] Metaxalone 800 Mg Tablet Metaxalone 800 Mg Tablet Yes 800 Four Times Daily [facility] Metoclopramide Hcl (Reglan) 10 Mg Tablet Metoclopramid e Hcl (Reglan) 10 Mg Tablet Yes 10 Three Times A Day [facility] Metoprolol Er Metoprolol Er Yes 300 Daily [facility] Metoprolol Succinate 100 Mg Tab.er.24h Metoprolol Succinate 100 Mg Tab.er.24h Yes 1 Daily [facility] Nitroglycerin 0.4 Mg Tab.subl Nitroglycerin 0.4 Mg Tab.subl Yes .4 Every 5 Minutes as needed for Chest Pain [facility] Ondansetron Hcl (Zofran) 8 Mg Tablet Ondansetron Hcl (Zofran) 8 Mg Tablet Yes 4 Every 4 Hours as needed for Nausea And V omiting [facility] Oxybutynin Chloride 5 Mg Tablet Oxybutynin Chloride 5 Mg Tablet Yes 5 Twice A Day [facility] Potassium Chloride 10 Meq Tab.er.prt Potassium Chloride 10 Meq Tab. er.prt Yes 10 as needed for When Taking Fluid Pill [facility] Repatha 1 Syr Repatha 1 Syr Yes 140 Q Other Sund ay [facility] Terbinafine Hcl 250 Mg Tablet Terbinafine Hcl 250 Mg Tablet Yes 250 Daily [facility] Trazodone Hcl 100 Mg Tablet Trazodone Hcl 100 Mg Tablet Yes 600 Bedtime [facility] Warfarin Sodium 3 Mg Tablet Warfarin Sodium 3 Mg Tablet Yes 3 Today At 6:00PM [facility] Amlodipine Besylate (Norvasc) 5 Mg Tab, 10 Mg Oral Aml odipine Besylate (Norvasc) 5 Mg Tab, 10 Mg Oral 2019-01-06 00:00:00 No 10 Daniela ly [facility] Liothyronine Sodium (Cytomel) 25 Mcg Tablet, 25 Mcg Or al Liothyronine Sodium (Cytomel) 25 Mcg Tablet, 25 Mcg Oral 2019-01-06 00:00:00 No 25 Daily@0600 [facility] Metoprolol Succinate 50 Mg Tab.er.24h, 200 Mg Oral Met oprolol Succinate 50 Mg Tab.er.24h, 200 Mg Oral 2019-01-06 00:00:00 No 200 Daily [facility] Warfarin Sodium (Coumadin) 2 Mg Tablet, 4 Mg Oral Warf elif Sodium (Coumadin) 2 Mg Tablet, 4 Mg Oral 2019-01-06 00:00:00 No 4 Tod ay At 6:00PM [facility] Buspirone Hcl 5 Mg Tablet, 15 Mg Oral Buspirone Hcl 5 Mg Tablet, 15 Mg Oral 2018-09-21 00:00:00 No 15 Twice A Day [facility] Fluconazole (Diflucan) 100 Mg Tablet, 100 Mg Oral Fluc onazole (Diflucan) 100 Mg Tablet, 100 Mg Oral 2018-09-21 00:00:00 No 100 Joaquin y [facility] Tizanidine Hcl 4 Mg Tablet, 4 Mg Oral Tizanidine Hcl 4 Mg Tablet , 4 Mg Oral 2018-09-21 00:00:00 No 4 Three Times A Day as needed for Muscle Spasms [facility] Dicyclomine Hcl 10 Mg Capsule, 10 Mg Oral Dicyclomine Hcl 10 Mg Capsule, 10 Mg Oral 2018-05-23 00:00:00 No 10 Thre e Times A Day as needed for Diarrhea [facility] Hydrocodone Bit/Acetaminophen (Hydrocodo n-Acetaminophn 10-325) 1 Each Tablet, 10-325 Oral Hydrocodone Bit/Acetaminophen (Hydrocodo n-Acetaminophn 10-325) 1 Each Tablet, 10-325 Oral 2018-05-23 00:00:00 No Every 8 Hours [facility] Tizanidine Hcl 4 Mg Capsule, 4 Mg Oral Tizanidine Hcl 4 Mg Capsu le, 4 Mg Oral 2018-05-23 00:00:00 No 4 Three Times A Day as needed for Muscle Spasms [facility] Aspirin 81 Mg Tab.chew, 81 Mg Oral Aspirin 81 Mg Tab.chew, 81 Mg Oral 2018-03-03 00:00:00 No 81 Daily [facility] Atenolol 100 Mg Tablet, 100 Mg Oral Atenolol 100 Mg Tablet, 100 Mg Oral 2018-03-03 00:00:00 No 100 Daily [facility] Docusate Sodium 250 Mg Capsule, 250 Mg Oral Docusate S odium 250 Mg Capsule, 250 Mg Oral 2018-03-03 00:00:00 No 250 Daily [facility] Prasugrel Hcl (Effient) 10 Mg Tablet, 10 Mg Oral Prasu grel Hcl (Effient) 10 Mg Tablet, 10 Mg Oral 2018-03-03 00:00:00 No 10 Daily [facility] Prasugrel Hcl (Effient) 10 Mg Tablet, 10 Mg Oral Prasu grel Hcl (Effient) 10 Mg Tablet, 10 Mg Oral 2018-03-03 00:00:00 No 10 Daily [facility] Docusate Sodium (Colace) 100 Mg Cap, 100 Mg Oral Docus ate Sodium (Colace) 100 Mg Cap, 100 Mg Oral 2016-12-22 00:00:00 No 100 Daily [facility] Alprazolam (Xanax) 0.5 Mg Tablet, 1 Mg Oral Alprazolam (Xanax) 0.5 Mg Tablet, 1 Mg Oral 2016-05-11 00:00:00 No 1 Three Times A Da y [facility] Metformin Hcl 500 Mg Tablet, 1000 Mg Oral Metformin Hc l 500 Mg Tablet, 1000 Mg Oral 2016-05-11 00:00:00 No 1000 Twice A Day [facility] Olmesartan/Hydrochlorothiazide (Benicar Hct 40-25 Mg Tablet) 1 Each Tablet, Oral Olmesartan/Hydrochlorothiazide (Benicar Hct 40-25 Mg Tablet) 1 Each Tablet, Oral 2016-05-11 00:00:00 No Daily [facility] Ondansetron (Zofran Odt) 4 Mg Tab.rapdis, 4 Mg Ondanse caitlin (Zofran Odt) 4 Mg Tab.rapdis, 4 Mg 2016-05-11 00:00:00 No 4 Every 6 Hours [facility] Levalbuterol Tartrate (Xopenex Hfa) 15 Gm Hfa.aer.ad, Levalbuterol Tartrate (Xopenex Hfa) 15 Gm Hfa.aer.ad, 2016-01-13 00:00:00 No [facility] Armodafinil (Nuvigil) 150 Mg Tablet, 150 Mg Oral Armod afinil (Nuvigil) 150 Mg Tablet, 150 Mg Oral 2015-05-05 00:00:00 No 150 [facility] Armodafinil (Nuvigil) 150 Mg Tablet, 150 Mg Oral Armod afinil (Nuvigil) 150 Mg Tablet, 150 Mg Oral 2015-05-05 00:00:00 No 150 [facility] Fluconazole (Diflucan) 100 Mg Tablet, 100 Mg Oral Fluc onazole (Diflucan) 100 Mg Tablet, 100 Mg Oral 2015-05-05 00:00:00 No 100 Joaquin y [facility] Lactaid , Oral Lactaid , Oral 2015-05-05 00:00:00 No As Needed [facility] Levofloxacin (Levaquin) 500 Mg Tablet, 500 Mg Oral Lev ofloxacin (Levaquin) 500 Mg Tablet, 500 Mg Oral 2015-05-05 00:00:00 No 500 D aily [facility] Nasacort , Nasacort , 2015-05-05 00:00:00 No Daniela ly [facility] Omeprazole/Sodium Bicarbonate (Zegerid 4 0 Mg Capsule) 1 Each Capsule, 40 Mg Oral Omeprazole/Sodium Bicarbonate (Zegerid 4 0 Mg Capsule) 1 Each Capsule, 40 Mg Oral 2015-05-05 00:00:00 No 40 Twice A Day [facility] Omeprazole/Sodium Bicarbonate (Zegerid 4 0 Mg Capsule) 1 Each Capsule, 40 Mg Oral Omeprazole/Sodium Bicarbonate (Zegerid 4 0 Mg Capsule) 1 Each Capsule, 40 Mg Oral 2015-05-05 00:00:00 No 40 [facility] Tums , Oral Tums , Oral 2015-05-05 00:00:00 No As Needed [facility] Zyrtec , Oral Zyrtec , Oral 2015-05-05 00:00:00 No Daily [facility] Benicar , Benicar , 2014-09-28 00:00:00 No [facility] Ciprofloxacin/Ciprofloxa Hcl (Cipro Xr 5 00 Mg Tablet) 500 Mg Tbmp.24hr, Mg Oral Ciprofloxacin/Ciprofloxa Hcl (Cipro Xr 5 00 Mg Tablet) 500 Mg Tbmp.24hr, Mg Oral 2014-09-28 00:00:00 No Daily [facility] Flucananzole , 100 Mg Oral Flucananzole , 100 Mg Oral 2014 00:00:00 No 100 Daily [facility] Ramila , Ramila , 2014-09-28 00:00:00 No [facility] Zertec , Zertec , 2014-09-28 00:00:00 No [facility] Alprazolam (Xanax Xr) 1 Mg Tab.er.24h, 3 Mg Oral Alpra zolam (Xanax Xr) 1 Mg Tab.er.24h, 3 Mg Oral 2014-08-28 00:00:00 No 3 As Needed [facility] Aspirin (Aspir 81) 81 Mg Tablet., 81 Mg Oral Aspirin (Aspir 81) 81 Mg Tablet., 81 Mg Oral 2014-08-26 00:00:00 No 81 Da junaid [facility] Clonidine Hcl 0.2 Mg Tablet, 0.2 Mg Oral Clonidine Hcl 0.2 Mg Tablet, 0.2 Mg Oral 2014-08-26 00:00:00 No .2 As Needed [facility] Fluticasone/Salmeterol (Advair 100-50 Diskus) 1 Each D isk.w.dev, 1 Inhalation Fluticasone/Salmeterol (Advair 100-50 Diskus) 1 Each Disk.w.dev, 1 Inhalation 2014-08-26 00:00:00 No 1 As Needed [facility] Fluticasone/Salmeterol (Advair 100-50 Diskus) 1 Each D isk.w.dev, 1 Inh Route Fluticasone/Salmeterol (Advair 100-50 Diskus) 1 Each Disk.w.dev, 1 Inh Route 2014-08-26 00:00:00 No 1 Twice A Day [facility] Meloxicam 7.5 Mg Tablet, 7.5 Mg Oral Meloxicam 7.5 Mg Tablet, 7. 5 Mg Oral 2014-08-26 00:00:00 No 7.5 Twice A Day [facility] Tramadol Hcl (Rybix Odt) 50 Mg Tab.rapdis, 50 Mg Oral Tramadol Hcl (Rybix Odt) 50 Mg Tab.rapdis, 50 Mg Oral 2014-08-26 00:00:00 No 50 As Needed [facility] Chlorzoxazone (Parafon Forte Dsc) 500 Mg Tablet, 500 M g Oral Chlorzoxazone (Parafon Forte Dsc) 500 Mg Tablet, 500 Mg Oral 2013-03-01 00:00:00 No 500 Daily [facility] Procedures Procedure Date / Time Performed Performing Clinician [facility] e Ultrasound guidance for vascular access 2019-05-28 00:00:00 PAPO MARY [facility] Creation of arteriovenous fistula 2019-05-26 00:00:00 LETSOU, GetSocialE [facility] CT of abdomen and pelvis without contrast 2019-05-25 00:00:00 MARY ELLEN VELIZ [facility] Creation of arteriovenous fistula 2019-05-20 00:00:00 LETSOU [employer] [facility] Echo guide for biopsy 2019-05-16 00:00:00 YOVANI SANDRA [facility] Ultrasound, renal 2019-02-11 00:00:00 AN POWELL [facility] X-ray of chest, two views 2019-02-11 00:00:00 AN POWELL [facility] AV FUSION DIRECT ANY SITE 2019-01-13 00:00:00 DALIA BRASWELL [facility] EGD BIOPSY SINGLE/MULTIPLE 2019-01-07 00:00:00 XOCHITL LOPEZ [facility] COLONOSCOPY AND BIOPSY 2019-01-07 00:00:00 XOCHITL LOPEZ [facility] COLONOSCOPY W/LESION REMOVAL 2019-01-07 00:00:00 XOCHITL LOPEZ [facility] COLONOSCOPY W/LESION REMOVAL 2019-01-07 00:00:00 XOCHITL LOPEZ [facility] X-ray of chest, two views 2019-01-06 00:00:00 DALIA BRASWELL [facility] CORONARY ARTERY ANGIO S&I 2018-12-14 00:00:00 CHRISTIN [facility] X-ray of chest, two views 2018-09-21 00:00:00 PRISCILLA ARRINGTON [facility] CT of abdomen and pelvis without contrast 2018-09-20 00:00:00 AN BETANCOURT [facility] Encounters Start Date/Time End Date/Time [facility] ID Source 2019-05-13 22:25:00 2019-06-01 20:14:00 Discharged Inpatient [address] [facility] [id number] [facility] 2019-02-11 08:52:00 2019-02-11 08:52:00 Registered Clinic 3 [address] [facility] [id number] [facility] 2019-01-13 11:31:00 2019-01-13 11:31:00 Registered Surgical Day Car e [address] [facility] [id number] [facility] 2019-01-07 06:16:00 2019-01-07 06:16:00 Registered Surgical Day Car e [address] [facility] [id number] [facility] 2018-12-14 06:26:00 2018-12-14 06:26:00 Registered Surgical Day Care [facility] [id number] [facility] 2018-11-09 16:41:00 2018-11-09 18:41:[address] [facility] [id number] [facility] Patients [facility] 2018-09-20 16:13:00 2018-09-20 16:13:00 Registered Clinic [address] [facility] [id number] [facility] Patients [facility] 2018-05-23 20:43:00 2018-05-31 19:04:00 Discharged Inpatient [address] [facility] [id number] [facility] 2018-03-03 16:41:00 2018-03-22 20:24:00 Discharged Inpatient [address] [facility] [id number] [facility] 2018-01-25 22:11:00 2018-01-26 03:06:00 Departed Emergency Room [address] [facility] [id number] [facility] 2017-11-11 08:51:00 2017-11-11 08:51:[address] [facility] [id number] [facility] 2017-11-04 09:07:00 2017-11-04 09:07:[address] [facility] [id number] [facility] 2017-07-19 13:40:00 2017-07-24 18:29:00 Discharged Inpatient ER KYLEE ACOSTA [facility] [id number] [facility] 2017-07-09 16:40:00 2017-07-18 14:58:00 Discharged Inpatient ER KYLEE ACOSTA [facility] [id number] [facility] 2016-12-22 17:14:00 2016-12-24 16:25:00 Discharged Inpatient ER KYLEE ACOSTA [facility] [id number] [facility] Results Test Description Test Time Test Comments Results Result Comments Source Differential Total Cells Counted 2019-06-01 09:32:00 Test Item Differential Total Cells Counted (test code = Dhaval sinclair Total Cells Counted) 100 [facility] (Manual[facility]2019-06-01 09:32:00 * Test Item Value Reference Range Interpretation Comments Neutrophils % (Manual) (test code = 99481-1) 85 40-74 H [facility] % (Manual)2019-06-01 09:32:00 * Test Item Value Reference Range Interpretation Comments Lymphocytes % (Manual) (test code = 737-7) 11 19-48 L [facility] % ([facility]ual)2019-06-01 09:32:00* Test Item Value Reference Range Interpretation Comments Monocytes % (Manual) (test code = 744-3) 3 3.4-9.0 L [facility] % (Manual)2019-06-01 09:32:00 * Test Item Value Reference Range Interpretation Comments Eosinophils % (Manual) (test code = 714-6) 1 0-7 [facility] [id number] 09:32:00* Test Item Value Reference Range Interpretation Comments Platelet Estimate (test code = 19862-1) ADEQUATE [facility] Morph[facility] [id number] 09:32:00* Test Item Value Reference Range Interpretation Comments Platelet Morphology Comment (test code = 75059-5) NORMAL [facility]2020-03-11 09:32:00* Test Item Value Reference Range Interpretation Comments Poikilocytosis (test code = 779-9) SLIGHT [facility]2020-03-11 09:32:00* Test Item Value Reference Range Interpretation Comments Anisocytosis (test code = 702-1) SLIGHT [facility] [id number] 09:32:00* Test Item Value Reference Range Interpretation Comments Red Cell Morphology Comment (test code = 6742-1) [facility] Eleqa0845-76-02 06:30:00* Test Item Value Reference Range Interpretation Comments Sodium Level (test code = 2951-2) 135 136-145 L [facility] Tadzc1073-72-20 06:30:00* Test Item Value Reference Range Interpretation Comments Potassium Level (test code = 2823-3) 3.9 3.5-5.1 [facility]manChloride Zlnnv4662-37-00 06:30:00* Test Item Value Reference Range Interpretation Comments Chloride Level (test code = 2075-0) 101 98-107 [facility]manCarbon Dioxide Mhnsy9982-10-70 06:30:00* Test Item Value Reference Range Interpretation Comments Carbon Dioxide Level (test code = 2028-9) 27 22-29 [facility]manAnion Rzz6438-17-51 06:30:00* Test Item Value Reference Range Interpretation Comments Anion Gap (test code = 42259-7) 10.9 8-16 [facility]manBlood Urea Jjdjnwdc1670-01-04 06:30:00* Test Item Value Reference Range Interpretation Comments Blood Urea Nitrogen (test code = 3094-0) 20 7-26 [facility]manCreatinine2020-03-11 06:30:00* Test Item Value Reference Range Interpretation Comments Creatinine (test code = 2160-0) 5.23 0.57-1.11 H [facility]manBUN/Creatinine Xkepu1775-61-78 06:30:00* Test Item Value Reference Range Interpretation Comments BUN/Creatinine Ratio (test code = 3097-3) 4 6-25 L [facility]aufmanEstimat Glomerular Filtration Rate 2019-06-01 06:30:00* Test Item Value Reference Range Interpretation Comments Estimat Glomerular Filtration Rate (test code = 491074565) 8 >60 L Ranges were taken from the National Kidney Disease Education Program and the [facility] literature.Reference ranges:60 or greater: Jabzqw55-39 ( for 3 consecutive months): Chronic kidney disease 15 or less: Kidney failureTexas Health KaufmanGlucose Treqv9598-48-38 06:30:00* Test Item Value Reference Range Interpretation Comments Glucose Level (test code = YNP9446) 105 74-118 [facility]manCalcium Ooagj0652-35-49 06:30:00* Test Item Value Reference Range Interpretation Comments Calcium Level (test code = 26597-9) 8.8 8.4-10.2 [facility]manMagnesium Iwoey0245-93-74 06:30:00* Test Item Value Reference Range Interpretation Comments Magnesium Level (test code = 30042-5) 1.8 1.3-2.1 [facility]manTotal Qabanqubf2137-88-97 06:30:00* Test Item Value Reference Range Interpretation Comments Total Bilirubin (test code = 1975-2) 1.3 0.2-1.2 H [facility]aufmanAspartate Amino Transf (AST/SGOT) 2019-06-01 06:30:00* Test Item Value Reference Range Interpretation Comments Aspartate Amino Transf (AST/SGOT) (test code = Aspartate Amino Transf (AST/SGOT)) 96 5-34 H [facility]aufmanAlanine Aminotransferase (ALT/SGPT) 2019-06-01 06:30:00* Test Item Value Reference Range Interpretation Comments Alanine Aminotransferase (ALT/SGPT) (test code = 1742-6) 21 0-55 [facility]manTotal Srplflv2419-60-39 06:30:00* Test Item Value Reference Range Interpretation Comments Total Protein (test code = 2885-2) 6.1 6.5-8.1 L [facility]manAlbumin2020-03-11 06:30:00* Test Item Value Reference Range Interpretation Comments Albumin (test code = 1751-7) 2.3 3.5-5.0 L [facility]manGlobulin2020-03-11 06:30:00* Test Item Value Reference Range Interpretation Comments Globulin (test code = 44748-6) 3.8 2.3-3.5 H [facility]manAlbumin/Globulin Qvpbp2683-82-28 06:30:00 * Test Item Value Reference Range Interpretation Comments Albumin/Globulin Ratio (test code = 1759-0) 0.6 0.8-2.0 L [facility]manAlkaline Vvaevjagigt7967-98-57 06:30:00* Test Item Value Reference Range Interpretation Comments Alkaline Phosphatase (test code = 6768-6) 864 40-150 H [facility]aufmanWhite Blood Xvjen8089-20-47 06:04:00* Test Item Value Reference Range Interpretation Comments White Blood Count (test code = 6690-2) 20.09 4.8-10.8 H [facility]manRed Blood Rgfay8574-35-22 06:04:00* Test Item Value Reference Range Interpretation Comments Red Blood Count (test code = 789-8) 4.14 3.6-5.1 [facility]manHemoglobin2020-03-11 06:04:00* Test Item Value Reference Range Interpretation Comments Hemoglobin (test code = 10410-4) 12.1 12.0-16.0 [facility]manHematocrit2020-03-11 06:04:00* Test Item Value Reference Range Interpretation Comments Hematocrit (test code = 4544-3) 37.3 34.2-44.1 [facility]manMean Corpuscular Bakijw5460-48-16 06:04:00* Test Item Value Reference Range Interpretation Comments Mean Corpuscular Volume (test code = 787-2) 90.1 81-99 [facility]manMean Corpuscular Lewgzreewg8162-57-97 06:04:00* Test Item Value Reference Range Interpretation Comments Mean Corpuscular Hemoglobin (test code = 785-6) 29.2 28-32 [facility]manMean Corpuscular Hemoglobin Concent 2019-06-01 06:04:00* Test Item Value Reference Range Interpretation Comments Mean Corpuscular Hemoglobin Concent (test code = 786-4) 32.4 31-35 [facility]aufmanRed Cell Distribution Fsbfa2617-97-79 06:04:00* Test Item Value Reference Range Interpretation Comments Red Cell Distribution Width (test code = 71834-2) 16.9 11.7 -14.4 H [facility] KaufmanPlatelet Qxbfr9787-35-45 06:04:00* Test Item Value Reference Range Interpretation Comments Platelet Count (test code = 777-3) 331 140-360 [facility]manNeutrophils (%) (Auto)2019-06-01 06:04:00 * Test Item Value Reference Range Interpretation Comments Neutrophils (%) (Auto) (test code = 02003-0) 76.7 38.7-80.0 [facility]manLymphocytes (%) (Auto)2019-06-01 06:04:00 * Test Item Value Reference Range Interpretation Comments Lymphocytes (%) (Auto) (test code = 736-9) 10.1 18.0-39.1 L [facility]manMonocytes (%) (Auto)2019-06-01 06:04:00* Test Item Value Reference Range Interpretation Comments Monocytes (%) (Auto) (test code = 5905-5) 9.4 4.4-11.3 [facility]manEosinophils (%) (Auto)2019-06-01 06:04:00 * Test Item Value Reference Range Interpretation Comments Eosinophils (%) (Auto) (test code = 713-8) 2.2 0.0-6.0 [facility]manBasophils (%) (Auto)2019-06-01 06:04:00* Test Item Value Reference Range Interpretation Comments Basophils (%) (Auto) (test code = 706-2) 0.5 0.0-1.0 [facility]aufmanIM GRANULOCYTES %2019-06-01 06:04:00* Test Item Value Reference Range Interpretation Comments IM GRANULOCYTES % (test code = IM GRANULOCYTES %) 1.1 0.0- 1.0 H [facility]manNeutrophils # (Auto)2019-06-01 06:04:00* Test Item Value Reference Range Interpretation Comments Neutrophils # (Auto) (test code = 751-8) 15.4 2.1-6.9 H [facility]manLymphocytes # (Auto)2019-06-01 06:04:00* Test Item Value Reference Range Interpretation Comments Lymphocytes # (Auto) (test code = 19116-4) 2.0 1.0-3.2 [facility]manMonocytes # (Auto)2019-06-01 06:04:00* Test Item Value Reference Range Interpretation Comments Monocytes # (Auto) (test code = 742-7) 1.9 0.2-0.8 H [facility]manEosinophils # (Auto)2019-06-01 06:04:00* Test Item Value Reference Range Interpretation Comments Eosinophils # (Auto) (test code = 711-2) 0.5 0.0-0.4 H [facility]manBasophils # (Auto)2019-06-01 06:04:00* Test Item Value Reference Range Interpretation Comments Basophils # (Auto) (test code = 704-7) 0.1 0.0-0.1 [facility]aufmanAbsolute Immature Granulocyte (auto 2019-06-01 06:04:00* Test Item Value Reference Range Interpretation Comments Absolute Immature Granulocyte (auto (ortega t code = Absolute Immature Granulocyte (auto) 0.23 0-0.1 H [facility] KaufmanTUNNELLED CVC INSERT W/O RFFQ5570-19-44 15:05:00 [place] [address] Patient Name: GABBIE TOBIN MR #: [id number] : 1955 Age/Sex: 63/F Req #: [id number] Adm Physician: KYLEE ACOSTA MD Ordered by: USMAN MARIE, PAPO MARIE Report #: [id number] Location: [facility] Room/Bed: [place] [address] Procedure: 5725-1920 IR/TUNNELLED CVC INSERT W/O PORT Exam Date: Exam T ervin: REPORT STATUS: Signed Tunn eled dialysis catheter exchange. Histo ry: Renal failure, malfunctioning indwelling left IJ TTC. Modality: Sonography and fluoroscopy. Sedation: Versed 1.5 mg and fentanyl 75 mcg was given intravenously for conscious sedation. Vital signs were monitored throughout the procedure by a nurse, and remained stable. Physician intra-service time was 20. Automation And Control Engineer: MD Larry. Mechanical Manufacturing Technician: None. Approach: Via indwe lling left IJ [...] for performing radiologist and scrub technologist. Initial medical collections images demonstrate indwelling left IJ tunnel dialysis catheter tip terminating within the proximal SVC. 1% lidocaine was used for local anesthesia. A 0.035 Amplatz wire was advanced through the indwelling catheter into the IVC. The existing catheter was removed over wire. A new 14.5 Tanzanian 28 cm tip the cuff catheter was [...] Interpretation Comments Bedside Glucose (test code = 54844-5) 88 70-120 Meter ID: [id number] Health KaufmanUrine Culture 2019-05-30 07:07:00* Test Item Value Reference Range Interpretation Comments Urine Culture (test code = 630-4) No Result Data Provided [facility]manPhosphorus Ffock7596-06-74 06:16:00* Test Item Value Reference Range Interpretation Comments Phosphorus Level (test code = SPH0425) 3.2 2.3-4.7 [facility]aufmanProthrombin Gbfa6743-98-01 06:12:00* Test Item Value Reference Range Interpretation Comments Prothrombin Time (test code = 5902-2) 12.7 11.9-14.5 [facility]aufmanProthromb Time International Ratio 2019-05-30 06:12:00* Test Item Value Reference Range Interpretation Comments Prothromb Time International Ratio (test code = 6301-6) 0.90 Oral Anticoagulant Therapy INR Values:1. Low Intensity Therapy 1.5 - 2.02 . Moderate Intensity Therapy 2.0 - 3.03. High Intensity Therapy(1) 2.5 - 3. 54. High Intensity Therapy(2) 3.0 - 4.05. Panic Value INR > 5.0 [facility]aufmanActivated Partial Thromboplast Time 2019-05-30 06:12:00* Test Item Value Reference Range Interpretation Comments Activated Partial Thromboplast Time (test code = 53896-1) 36.0 23.8-35.5 H [facility]aufmanCHEST SINGLE (PORTABLE)2019-05-29 10:13:00 [place] [address] Patient Name: GABBIE TOBIN MR #: [id number] : 1955 Age/Sex: 63/F Req #: [id number] Adm Physician: KYLEE ACOSTA MD Ordered by: BHAVESH ABBASI MD Report #: [id number] Location: ICU Room/Bed: ICU 193 Procedure: 0702-8065 DX /CHEST SINGLE (PORTABLE) Exam Date: 05/29/19 [...] 05/29/19 1016 COPY TO: BHAVESH ABBASI MD [facility] OR EMD6073-78-22 18:17:[address] [address] Patient Name: GABBIE TOBIN MR #: [id number] : 1955 Age/Sex: 63/F Req #: [id number] Adm Physician: KYLEE ACOSTA MD Ordered by: USMAN MARIE, PAPO MARIE Report #: [id number] Location: ICU Room/Bed: [place] [address] Procedure: 3847-5698 IR/FLURO [facility] JASSON PLMT OR REM Exam Date: Exam Time: REPORT STATUS: Signed Mukul e and Time: 05/28/2019 Procedure: Right internal jugular temporary hemodialys is catheter placement dumb waiter operator: Dr. Briceño Pre-operative shyam gnosis: End-stage [...] loss: Minimal Sp ecimens: None Implants: 13 Tanzanian 15 cm triple-lumen hi flow central venous [...] the tract was dilated. Then a 13 Tanzanian 15 cmtri ple-lumen central high flow venous [...] vein IMPRESSION: Successful placement of a 13 Tanzanian, 15 cm triple-lumen hi flow central venous catheter by a right internal jugular approach under sonographic and fluoroscopic guidance. Signed by: Dr. Edith Briceño M.D. on 05/28/2019 6:20 PM Dictated By: EDITH BRICEÑO MD 19 Transcribed By: ALEXIA on 05/28/191819 COPY TO: PAPO MARY NON-TUNNELLED CVC CATH KMJTQOT0394-37-98 18:17:00 [place] [address] Patient Name: GABBIE TOBIN MR #: [id number] : 1955 Age/Sex: 63/F Req #: [id number] Adm Physician: KYLEE ACOSTA MD Ordered by: PAPO MARY MD, MD Report #: [id number] Location: ICU Room/Bed: ICU 193 Procedure: 0818-5591 IR/NON-TUNNELLED CVC CATH PLACMNT Exam Date: Exam Time: REPORT STATUS: Signed Mukul e and Time: 05/28/2019 Procedure: Right internal jugular temporary hemodialys is catheter placement dumb waiter operator: Dr. Briceño Pre-operative shyam gnosis: End-stage [...] loss: Minimal Sp ecimens: None Implants: 13 Tanzanian 15 cm triple-lumen hi flow central venous [...] Then under continuous sonographic guidance, an 18-gau Seafarers CV singlewall needle was used to access the right internal jugular vein. A per manent sonographic image was stored in the medical record. A 0.0 3 5-in. wire was advanced centrally into the IVC under fluoroscopic guidance. The needle wa s removed over the wire and the tract was dilated. Then a 13 Tanzanian 15 cmtri ple-lumen central high flow venous [...] vein IMPRESSION: Successful placement of a 13 Tanzanian, 15 cm triple-lumen hi flow central venous catheter by a right internal jugular approach under sonographic and fluoroscopic guidance. Signed by: Dr. Edith Briceño M.D. on 05/28/2019 6:20 PM Dictated By: EDITH BRICEÑO MD 19 Transcribed By: ALEXIA on 05/28/191819 COPY TO: PAPO MARY IR CONSULT 2019-05-28 18:17:00 [place] [address] Patient Name: GABBIE TOBIN MR #: [id number] : 1955 Age/Sex: 63/F Req #: [id number] Adm Physician: KYLEE ACOSTA MD Ordered by: USMAN MARIE, PAPO MARIE Report #: [id number] Location: ICU Room/Bed: ICU [facility] Procedure: 0601-3912 DX/IR CONSULT Exam Date: Exam Time: REPORT STATUS: Signed Date and Time: 05/28/2019 Procedure: Right internal jugular temporary hemodialysis catheter placement dumb waiter operator: Dr. Briceño Pre-operative diagnosis: End-stage renal [...] loss: Minimal Specimens: None Impl ants: 13 Tanzanian 15 cm triple-lumen hi flow central venous [...] the tract was dilated. Then a 13 Tanzanian 15 cmtriple-lumen central hi gh flow venous [...] vein IMPRESSION: Successful placement of a 13 Tanzanian, 15 cm triple -lumen hi flow central venous catheter by a right internal jugular approach un kalia sonographic and fluoroscopic guidance. Signed by: Dr. Edith Briceño M.D. on 05/28/2019 6:20 PM Dictated By: EDITH BRICEÑO MD Electronically Si gned By: EDITH BRICEÑO MD on 05/28/191819 Transcribed By: ALEXIA on 05/28/191819 COPY TO: PAPO MARY GUIDANCE FOR VASCULAR ACCES 2019-05-28 18:17:00 [place] [address] Patient Name: GABBIE TOBIN MR #: [id number] : 1955 Age/Sex: 63/F Req #: [id number] Adm Physician: KYLEE ACOSTA MD Ordered by: USMAN MARIE, PAPO MARIE Report #: [id number] Location: ICU Room/Bed: ICU 193 Procedure: 1752-2443 US/US GUIDANCE FOR VASCULAR ACCES Exam Date: Exam Time: REPORT STATUS: Signed Mukul e and Time: 05/28/2019 Procedure: Right internal jugular temporary hemodialys is catheter placement dumb waiter operator: Dr. Briceño Pre-operative shyam gnosis: End-stage [...] loss: Minimal Sp ecimens: None Implants: 13 Tanzanian 15 cm triple-lumen hi flow central venous [...] the tract was dilated. Then a 13 Tanzanian 15 cmtri ple-lumen central high flow venous [...] vein IMPRESSION: Successful placement of a 13 Tanzanian, 15 cm triple-lumen hi flow central venous catheter by a right internal jugular approach under sonographic and fluoroscopic guidance. Signed by: Dr. Edith Briceño M.D. on 05/28/2019 6:20 PM Dictated By: EDITH BRICEÑO MD 19 Transcribed By: ALEXIA on 05/28/191819 COPY TO: PAPO MARY CHEST SINGLE (PORTABLE)2019-05-26 18:53:00 [place] [address] Patient Name: GABBIE TOBIN MR #: [id number] : 1955 Age/Sex: 63/F Req #: [id number] Adm Physician: KYLEE ACOSTA MD Ordered by: PAPO MARY MD, MD Report #: [id number] Location: ICU Room/Bed: ICU [facility] Procedure: [id number] DX/CHEST SINGLE (PORTABLE) Exam Date: 05/26/19 Exam [...] 05/26/191854 COPY TO: PAPO MARY Creatine Kinase AE0203-75-98 16:32:00* Test Item Value Reference Range Interpretation Comments Creatine Kinase MB (test code = 26328-7) 1.30 0-5.0 [facility]manTroponin Z3726-68-57 16:32:00* Test Item Value Reference Range Interpretation Comments Troponin I (test code = TIP4837) 0.239 0-0.300 [facility]aufmanCreatine Gzajks5692-13-65 16:16:00* Test Item Value Reference Range Interpretation Comments Creatine Kinase (test code = 2157-6) 11 29-168 L [facility]aufmanClostridium Difficile Toxin A & B 2019-05-26 15:12:00* Test Item Value Reference Range Interpretation Comments Clostridium Difficile Toxin A & B (test code = 401842206) NEGATIVE NEGATIVE Testing on stool aspirate specimens is outside documentation manager claims since specime n type not validated on this assay.[facility] KaufmanCT ABDOMEN/PELVIS YY6522-16-78 15:21:00 [place] [address] Patient Name: GABBIE TOBIN MR #: [id number] : 1955 Age/Sex: 63/F Req #: [id number] Adm Physician: KYLEE ACOSTA MD Ordered by: MARY ELLEN ALCARAZ MD Report #: [id number] Location: ICU Room/Bed: ICU [facility] Procedure: 6569-8418 C T/CT ABDOMEN/PELVIS WO Exam Date: 05/25/19 [...] 1528 Transcribed By: ALEXIA on 05/25/19 1528 GAS METER PROVER Y TO: MARY ELLEN ALCARAZ MD Lactic Acid Bbbze5271-66-04 09:49:00* Test Item Value Reference Range Interpretation Comments Lactic Acid Level (test code = Lactic Acid Level) 1.6 0.5- 2.0 [facility] SINGLE (PORTABLE)2019-05-23 14:47:00 [place] [address] Patient Name: GABBIE TOBIN MR #: [id number] : 1955 Age/Sex: 63/F Req #: [id number] Adm Physician: KYLEE ACOSTA MD Ordered by: KYLEE ACOSTA MD Report #: [id number] Location: MED/SURG Room/Bed: [facility] Procedure: 8643-0491 D X/CHEST SINGLE (PORTABLE) Exam Date: 05/23/19 [...] KYLEE ACOSTA MD MOD SEDATE ADD 15 MIN>1AVU0737-01-59 11:39:00 [facility] [place] [address] Patient Name: GABBIE TOBIN MR #: [id number] : 1955 Age/Sex: 63/F Req #: [id number] [facility] Physician: KYLEE ACOSTA MD Ordered by: YAYO MATUTE MD Report #: [id number] Location: ICU Room/Bed: ICU [facility] Procedure: 44 DX/MOD SEDATE ADD 15 MIN>5YRS Exam Date: 05/23/19 Exam Time: 1107 REPORT STATUS: Signed Conversion of a nontunneled to tunneled dialysis catheter, 05/23/2019. History: Renal failure. Modality: Fluoroscopy. Sedation: Versed 1.0 mg and fentanyl 50 mcg was given intravenously for conscious sedation. Vital signs were monitored throughout the procedure by a nurse, and remained stable. Physician intra-service time was 15 minutes. Automation And Control Engineer: Giovani. Mechanical Manufacturing Technician: None. Approach: Left internal jugular vein Estimated [...] by blunt dissection. A 23 cm 14.5 Tanzanian cuffed dialysis catheter was brought through the [...] MATUTE MD MOD SEDATE ADD 15 MIN >1VHO0845-98-25 11:39:00 [place] [address] Patient Name: GABBIE TOBIN MR #: [id number] : 1955 Age/Sex: 63/F Req #: [id number] Adm Physician: KYLEE ACOSTA MD Ordered by: YAYO MATUTE MD Report #: [id number] Location: ICU Room/Bed: ICU 193 Procedure: 030-00 [...] stable. Physician intra-service time was 15 minutes. Automation And Control Engineer: Giovani. Mechanical Manufacturing Technician: None. Approach: Left internal jugular vein Estimated [...] by blunt dissection. A 23 cm 14.5 Tanzanian cuffed dialysis catheter was brought through the [...] YAYO MATUTE MD MOD SEDATE INITIAL >5 UVR0413-59-45 11:39:00 [place] [address] Patient Name: GABBIE TOBIN MR #: [id number] : 1955 Age/Sex: 63/F Req #: [id number] Adm Physician: KYLEE ACOSTA MD Ordered by: YAYO MATUTE MD Report #: [id number] Location: ICU Room/Bed: ICU [facility] Procedure: 42 DX/MOD SEDATE INITIAL >5 YRS Exam Date: 05/23/19 Exam Time: 1030 REPORT STATUS: Signed Conversion of a nontunneled to tunneled dialysis catheter, 05/23/2019. History: Renal failure. Modality: Fluoroscopy. Sedation: Versed 1.0 mg and fentanyl 50 mcg was given intravenously for conscious sedation. Vital signs were monitored throughout the procedure by a nurse, and remained stable. Physician intra-service time was 15 minutes. Automation And Control Engineer: Giovani. Mechanical Manufacturing Technician: None. Approach: Left internal jugular vein Estimated [...] by blunt dissection. A 23 cm 14.5 Tanzanian cuffed dialysis catheter was brought through the [...] 05/25/19 1124 COPY TO: YAYO MATUTE [facility] OR [id number] 11:39:00 [place] [address] Patient Name: GABBIE TOBIN MR #: [id number] : 1955 Age/Sex: 63/F Req #: [id number] Adm Physician: KYLEE ACOSTA MD Ordered by: YOVANI SANDRA MD Report #: [id number] Location: ICU Room/Bed: ICU [facility] Procedure: [id number] IR/ FLURO [facility] PLMT OR [...] Physician intra-service time was 15 mi nutes. Automation And Control Engineer: Giovani. Mechanical Manufacturing Technician: None. Approach: Left internal jug ular vein [...] by blunt dissection. A 23 cm 14.5 Tanzanian cuffed dialysis catheter was brought through the [...] tolerated the procedure well and [facility]. Results: Spot [...] 05/25/191123 COPY TO: YOVANI SANDRA MD IR [id number] 11:39:00 [place] [address] Patient Name: GABBIE TOBIN MR #: [id number] : 1955 Age/Sex: 63/F Req #: [id number] Adm Physician: KYLEE ACOSTA MD Ordered by: YOVANI SANDRA MD Report #: [id number] Location: ICU Room/Bed: ICU [facility] Procedure: [id number] DX/ IR CONSULT Exam Date: Exam Time: REPORT STATUS: Signed Conversion of a nontunneled to tunneled dialysis catheter, 05/23/2019. History: Renal failure. Modality: Fluoroscopy. Sedation: Versed 1.0 mg and fentanyl 50 mcg was given intravenously for conscious sedation. Vital signs were monitored throughout the procedure by a nurse, and remained stable. Physician intra-service time was 15 minutes. Jordan thomas Merchandising Assistant: Giovain. Mechanical Manufacturing Technician: None. Approach: Left internal jugular vein Estimated [...] by blunt dissection. A 23 cm 14.5 Tanzanian cuffed dialysis catheter was brought through the [...] tolerated the procedure well [facility]. Results: Spot radiograph [...] YOVANI SANDRA MD TUNNELLED CVC INSERT W/O ROXJ6446-18-92 11:39:00 [facility] [address] [place], [place] [address] Patient Name: GABBIE TOBIN MR #: [id number] : 1955 Age/Sex: 63/F Req #: [id number] Adm Physician: KYLEE ACOSTA MD Ordered by: YOVANI SANDRA MD Report #: [id number] Location: ICU Room/Bed: ICU [facility] Procedure: 4684-4901 IR/ TUNNELLED CVC INSERT W/O PORT Exam Date: Exam Time: REPORT STATUS: Signed Conversi on of a nontunneled to tunneled dialysis catheter, 05/23/2019. History: Renal failure. Modality: Fluoroscopy. Sedation: Versed 1.0 mg and fentanyl 50 mcg was given intravenously for conscious sedation. Vital signs were monitored throughout the procedure by a nurse, and remained stable. Physician intra-service time was 15 minutes. Automation And Control Engineer: Giovani. Mechanical Manufacturing Technician: None. Approach: Left internal jugular vein Estimated [...] by blunt dissection. A 23 cm 14.5 Tanzanian cuffed dialysis catheter was brought through the [...] tolerated the procedure well [facility]. Results: [...] 05/25/191123 COPY TO: YOVANI SANDRA MD Blood Eghmwhh5141-41-49 05:06:00* Test Item Value Reference Range Interpretation Comments Blood Culture (test code = 02138521) NO GROWTH AFTER 5 DAYS, FINAL REPORT [facility]aufmanReactive Nfhvpcnwgoj9499-32-36 10:14:00* Test Item Value Reference Range Interpretation Comments Reactive Lymphocytes (test code = 21396-9) 2 [facility]aufmanHepatitis Be Dsfhtjtn0370-87-98 14:54:00 * Test Item Value Reference Range Interpretation Comments Hepatitis Be Antibody (test code = 09462-6) Negative Negative Performed at: [address] [id number] Statistics Professor: Zee Kenny MD, Phone: [phone] Health KaufmanCHEST SINGLE (PORTABLE)2019-05-18 06:17:[address], [place] [address] Patient Name: GABBIE TOBIN MR #: [id number] : 1955 Age/Sex: 63/F Req #: [id number] Adm Physician: PINA RUCKER MD Ordered by: BHAVESH ABBASI MD Report #: [id number] Location: ICU Room/Bed: ICU [facility] Procedure: 9212-4393 DX/CHEST SINGLE (PORTABLE) Exam Date: 05/18/19 Exam [...] TO: BHAVESH ABBASI Hepatitis B Core Total Xxhkwraq3415-12-21 11:32:00* Test Item Value Reference Range Interpretation Comments Hepatitis B Core Total Antibody (test code = 46653-6) Negative Negative [facility] B Surface Wdfqgpf6647-35-09 11:32:00* Test Item Value Reference Range Interpretation Comments Hepatitis B Surface Antigen (test code = 5196-1) Negative Negat ana lilia [facility] B Core IgM Hhthnpec1617-56-28 11:32:00* Test Item Value Reference Range Interpretation Comments Hepatitis B Core IgM Antibody (test code = 41769-5) Negative Ne gative Performed at: - [facility] [id number] Director: Pedro Smith MD, Phone: [phone] [facility] SINGLE (PORTABLE)2019-05-17 05:48:00 [facility] [address] [place] [address] Patient Name: GABBIE TOBIN MR #: [id number] : 1955 Age/Sex: 63/F Req #: [id number] Adm Physician: PINA RUCKER MD Ordered by: BHAVESH ABBASI MD Report #: [id number] Location: ICU Room/Bed: [place] [address] Procedure: [id number] DX/CHEST SINGLE (PORTABLE) Exam Date: Exam Time: [...] 05/17/1949 COPY TO: BHAVESH ABBASI MD IR MEBPQSJ8637-28-22 15:36:00 [facility] [address] [address] Patient Name: GABBIE TOBIN MR #: [id number] : 1955 Age/Sex: 63/F Req #: [id number] Adm Physician: PINA RUCKER MD Ordered by: YOVANI SANDRA MD Report #: [id number] Location: ICU Room/Bed: ICU [facility] Procedure: [id number] D X/IR CONSULT Exam Date: Exam Time: [...] mary rile dressing was applied. Catheter placed: [employer] Trialysis Catheter size (Fr ench): 13 Catheter [...] TO: YOVANI SANDRA MD NON-TUNNELLED CVC CATH UNNYAKJ9244-42-58 15:36:00 [place] [address] Patient Name: GABBIE TOBIN MR #: [id number] : 1955 Age/Sex: 63/F Req #: [id number] Adm Physician: PINA RUCKER MD Ordered by: YOVANI SANDRA MD Report #: [id number] Location: ICU Room/Bed: ICU 190-1 Procedure: [id number] I R/NON-TUNNELLED CVC CATH PLACMNT Exam Date: [...] applied. Catheter placed: Bard Trialysis Catheter size (Tanzanian): 13 Catheter length (cm): 20 Catheter flush: [...] 3:38 PM Dictated By: PATRICIA SUBRAMANIAN MD [facility] Signed By: PATRICIA SUBRAMANIAN MD on 05/16/19 153 Transcribed By: ALEXIA on 04/24 07/10 1538 COPY TO: YOVANI SANDRA MD US GUIDANCE FOR PROCEDURE 2019-05-16 15:36:00 [place] [address] Patient Name: GABBIE TOBIN MR #: [id number] : 1955 Age/Sex: 63/F Req #: [id number] Adm Physician: PINA RUCKER MD Ordered by: YOVANI SANDRA MD Report #: [id number] Location: ICU Room/Bed: ICU [facility] Procedure: [id number] U S/US GUIDANCE FOR PROCEDURE Exam Date: [...] Catheter placed: Bard Tr ialysis Catheter size (Tanzanian): 13 Catheter length (cm): 20 Catheter flush [...] SANDRA MD CHEST SINGLE (PORTABLE) 2019-05-16 15:16:00 [place] [address] Patient Name: GABBIE TOBIN MR #: [id number] : 1955 Age/Sex: 63/F Req #: [id number] Adm Physician: PINA RUCKER MD Ordered by: PATRICIA SUBRAMANIAN MD Report #: [id number] Location: ICU Room/Bed: ICU [facility] Procedure: [id number] D X/CHEST SINGLE (PORTABLE) Exam Date: 05/16/19 Exam T ervin: 3231 REPORT STATUS: Signed EXAMINATION: CHEST SINGLE (PORTABLE) [...] COPY TO: PATRICIA SUBRAMANIAN MD Arterial Blood mV3034-85-35 14:09:00* Test Item Value Reference Range Interpretation Comments Arterial Blood pH (test code = 2744-1) 7.37 7.31-7.41 [facility] Pressure CO2 2019-05-16 14:09:00* Test Item Value Reference Range Interpretation Comments Arterial Blood Partial Pressure CO2 (test code = 2018-8) 40 41-51 L [facility] Partial Pressure O2 2019-05-16 14:09:00* Test Item Value Reference Range Interpretation Comments Arterial Blood Partial Pressure O2 (test code = 2018-8) 94 80-105 [facility] Blood XRO78844-95-43 14:09:00* Test Item Value Reference Range Interpretation Comments Arterial Blood HCO3 (test code = 1960-4) 23 23-28 [facility] Base Mimuae0490-19-92 14:09:00* Test Item Value Reference Range Interpretation Comments Arterial Blood Base Excess (test code = 1925-7) -2.0 -2-3 [facility] Oxygen Saturation 2019-05-16 14:09:00* Test Item Value Reference Range Interpretation Comments Arterial Blood Oxygen Saturation (test code = 2708-6) 97.0 95-98 [facility]manFiO22020-02-24 14:09:00* Test Item Value Reference Range Interpretation Comments FiO2 (test code = FiO2) 60 BIPAP 16/8 RR 16DREW FROM RIGHT BRACHIALCHI [facility] CHEST SINGLE (PORTABLE)2019-05-16 06:58:00 [facility] [address] [address] Patient Name: GABBIE TOBIN MR #: [id number] : 1955 Age/Sex: 63/F Req #: [id number] Adm Physician: PINA RUCKER MD Ordered by: BHAVESH ABBASI MD Report #: [id number] Location: ICU Room/Bed: ICU [facility] Procedure: [id number] DX/CHEST SINGLE (PORTABLE) Exam Date: 05/16/19 Exam [...] Venous Blood pH) 7.413 7.35-7.3 8 H [facility] Partial Pressure CO2 2019-05-15 10:12:00* Test Item Value Reference Range Interpretation Comments Venous Blood Partial Pressure CO2 (test code = Venous Blood Partial Pressure CO2) 36.1 44-48 L [facility] Partial Pressure O2 2019-05-15 10:12:00* Test Item Value Reference Range Interpretation Comments Venous Blood Partial Pressure O2 (test code = Venous B lood Partial Pressure O2) 48 40-41 H [facility]man[facility] Blood DZY56328-05-33 10:12:00* Test Item Value Reference Range Interpretation Comments Venous Blood HCO3 (test code = Venous Blood HCO3) 23.0 21-2 2 H [facility] Blood Total Carbon Dioxide 2019-05-15 10:12:00* Test Item Value Reference Range Interpretation Comments Venous Blood Total Carbon Dioxide (test code = Venous Blood Total Carbon Dioxide) 24 [facility] Base Eihfdh9235-67-96 10:12:00* Test Item Value Reference Range Interpretation Comments Venous Blood Base Excess (test code = Venous Blood Base Excess) -2 [facility] Blood Oxygen Mmtfjrcavu7155-62-38 10:12:00* Test Item Value Reference Range Interpretation Comments Venous Blood Oxygen Saturation (test code = Venous Blood Oxy gen Saturation) 84 [facility])2019-05-15 06:19:00 [place] [address] Patient Name: GABBIE TOBIN MR #: [id number] : 1955 Age/Sex: 63/F Req #: [id number] Adm Physician: PINA RUCKER MD Ordered by: BHAVESH ABBASI MD Report #: [id number] Location: ICU Room/Bed: ICU [facility] Procedure: [id number] DX/CHEST SINGLE (PORTABLE) Exam Date: 05/15/19 Exam [...] 05/15/19620 COPY TO: BHAVESH ABBASI MD Triglycerides Wuyoe6106-85-82 05:51:00* Test Item Value Reference Range Interpretation Comments Triglycerides Level (test code = 2571-8) 103 0-149 [facility] Hkbcl5357-38-92 05:51:00* Test Item Value Reference Range Interpretation Comments Cholesterol Level (test code = 2093-3) 134 0-199 Less than 200 mg/dL Low Qirv807 - 239 mg/dL Borderline Rrlt326 m g/dl and greater High Risk [facility]manLDL Iujicidfldy7122-12-44 05:51:00* Test Item Value Reference Range Interpretation Comments LDL Cholesterol (test code = 2089-1) 82 60-130 [facility]HDL Oiuhgzhxyse9799-77-58 05:51:00* Test Item Value Reference Range Interpretation Comments HDL Cholesterol (test code = 2085-9) 31 40-60 L [facility]Ch[facility]/HDL Cvrff9670-68-80 05:51:00 * Test Item Value Reference Range Interpretation Comments Cholesterol/HDL Ratio (test code = 9830-1) 4.3 3.0-3.6 H [facility]manFree Thyroxine Xgcma1658-83-49 15:17:00* Test Item Value Reference Range Interpretation Comments Free Thyroxine Index (test code = 71419-5) 2.0190 1.4-3.8 [facility]man[facility]yroxine (T4)2019-05-14 15:17:00* Test Item Value Reference Range Interpretation Comments Thyroxine (T4) (test code = 3026-2) 5.01 4.5-10.9 Our current method for Total T4 is not recommended for use as the only marker fo r evaluating patients for thyroid disorders.[facility]manTriiodothyronine (T3) Osxzdm8365-72-63 15:17:00* Test Item Value Reference Range Interpretation Comments Triiodothyronine (T3) Uptake (test code = 3050-2) 40.30 22.5 -37.0 H [facility]manThyroid Stimulating Hormone (TSH) 2019-05-14 15:17:00* Test Item Value Reference Range Interpretation Comments Thyroid Stimulating Hormone (TSH) (test code = 88555-7) 0.409 0.350-4.940 [facility])2019-05-14 06:11:00 [place] [address] Patient Name: GABBIE TOBIN MR #: [id number] : 1955 Age/Sex: 63/F Req #: [id number] Adm Physician: PINA RUCKER MD Ordered by: ERIK FORD MD Report #: [id number] Location: ICU Room/Bed: ICU [facility] Procedure: [id number] DX/CHEST SINGLE (PORTABLE) Exam [...] COPY TO: ERIK PARRA MD B-Type Natriuretic Inpizhf5927-57-98 05:54:00* Test Item Value Reference Range Interpretation Comments B-Type Natriuretic Peptide (test code = 76756-5) 1680.0 0-100 H [facility]manU[facility] RUN5939-47-26 00:56:00* Test Item Value Reference Range Interpretation Comments Urine WBC (test code = 5821-4) 11-20 0-5 H [facility] VRH9176-18-58 00:56:00* Test Item Value Reference Range Interpretation Comments Urine RBC (test code = 05072-3) 21-50 0-5 H [facility] Imhljbvy9060-55-07 00:56:00* Test Item Value Reference Range Interpretation Comments Urine Bacteria (test code = 35427-1) MANY NONE H [facility] Epithelial Jtitj6488-11-24 00:56:00 * Test Item Value Reference Range Interpretation Comments Urine Epithelial Cells (test code = 96968-0) FEW NONE [facility] Amorphous Mluwpgik7332-65-68 00:56:00* Test Item Value Reference Range Interpretation Comments Urine Amorphous Sediment (test code = 8246-1) MANY FEW H [facility]manU[facility] Fine Granular Ilzrb3180-95-66 00:56:00* Test Item Value Reference Range Interpretation Comments Urine Fine Granular Casts (test code = 15862-5) 1-5 >0 H [facility]manU[facility] Coarse Granular Hqfwg0749-01-94 00:56:00* Test Item Value Reference Range Interpretation Comments Urine Coarse Granular Casts (test code = 53435-0) 1-5 >0 H [facility]manU[facility] Zotou4163-89-86 00:39:00* Test Item Value Reference Range Interpretation Comments Urine Color (test code = 5778-6) CONNER YELLOW H [facility] Nvibkiu3914-84-91 00:39:00* Test Item Value Reference Range Interpretation Comments Urine Clarity (test code = 68831-7) CLOUDY CLEAR H [facility]manUrine Specific Zwlsbzd2422-53-78 00:39:00 * Test Item Value Reference Range Interpretation Comments Urine Specific [place] (test code = 5811-5) 1.020 1.010-1.02 5 [facility] jS3406-80-22 00:39:00* Test Item Value Reference Range Interpretation Comments Urine pH (test code = 40488-1) 6.5 5-7 [facility] Leukocyte Ylzdspfb7145-28-86 00:39:00* Test Item Value Reference Range Interpretation Comments Urine Leukocyte Esterase (test code = 5799-2) NEGATIVE NEGATIVE [facility] Blljhtg5416-32-34 00:39:00* Test Item Value Reference Range Interpretation Comments Urine Nitrite (test code = 80276-0) NEGATIVE NEGATIVE [facility] Qpchitp2281-38-51 00:39:00* Test Item Value Reference Range Interpretation Comments Urine Protein (test code = 5804-0) 3+ NEGATIVE H [facility]man[facility] Glucose (UA)2019-05-14 00:39:00* Test Item Value Reference Range Interpretation Comments Urine Glucose (UA) (test code = 2349-9) 2+ NEGATIVE H [facility] Mymqbrj7388-05-98 00:39:00* Test Item Value Reference Range Interpretation Comments Urine Ketones (test code = 15577-6) NEGATIVE NEGATIVE [facility] Cqxyvrolojdr7761-02-88 00:39:00* Test Item Value Reference Range Interpretation Comments Urine Urobilinogen (test code = 45115-9) 0.2 0.2-1 [facility] Nglshgrbn3925-51-07 00:39:00* Test Item Value Reference Range Interpretation Comments Urine Bilirubin (test code = 1978-6) 1+ NEGATIVE H [facility] Qtwmh9542-37-86 00:39:00* Test Item Value Reference Range Interpretation Comments Urine Blood (test code = 95432-7) 3+ NEGATIVE H [facility]man[facility] SING[facility] ([facility]ABLE)2019-05-13 19:50:00 [facility] [address] [address] Patient Name: GABBIE TOBIN MR #: [id number] : 1955 Age/Sex: 63/F Req #: [id number] Adm Physician: Ordered by: ERIK FORD MD Report #: [id number] Location: ER Room/Bed: Procedure: 022 DX/CHEST SINGLE [...] TO: ERIK FORD MD ABDOMEN-1VIEW (KUB)2019-02-11 10:32:00 [place] [address] Patient Name: GABBIE TOBIN MR #: [id number] : 1955 Age/Sex: 63/F Req #: [id number] Adm Physician: Ordered by: AN POWELL MD Report #: [id number] Location: Room/Bed: Procedure: [id number] DX/ ABDOMEN-1VIEW (KUB) Exam Date: Exam Time: [...] on 02/11/19 1037 CO PY TO: AN OPWELL MD US RENAL RETROPERITONEAL KFYS5668-68-27 10:27:00 [place] [address] Patient Name: GABBIE TOBIN MR #: [id number] : [birth year] Age/Sex: 63/F Req #: [id number] Adm Physician: Ordered by: AN POWELL MD Report #: [id number] Location: Room/Bed: Procedure: [id number] US/ US RENAL RETROPERITONEAL COMP Exam Date: [...] COPY TO: AN POWELL MD CHEST 2 PLZUF1584-10-17 10:25:00 [place] [address] Patient Name: GABBIE TOBIN MR #: [id number] : 1955 Age/Sex: 63/F Req #: [id number] Adm Physician: Ordered by: AN POWELL MD Report #: [id number] Location: Room/Bed: Procedure: [id number] DX/ CHEST 2 VIEWS Exam Date: Exam [...] 1026 COPY TO: AN POWELL MD Stool Cmmcyfgnqbbj9920-96-10 22:10:00* Test Item Value Reference Range Interpretation Comments Stool Calprotectin (test code = 00331-4) <16 0-120 Concentration Interpretation Follow-Up<16 - 50 ug/g Normal None>50 -120 ug/g Borderline Re-evaluate in 4-6 weeks >120 ug/g Abnormal Repeat as clinically indicatedPerformed at: [facility] [id number] Director: Zee Kenny MD, Phone: [phone] [facility] Lact[facility]errin ([facility])2019-01-07 11:03:00* Test Item Value Reference Range Interpretation Comments Stool Lactoferrin (LAB) (test code = 25635-6) NEGATIVE NEGATIVE Testing on stool aspirate specimens is outside documentation manager claims since specime n type not validated on this assay.[facility] YVEYQ0782-47-95 11:58:00 [place] [address] Patient Name: GABBIE TOBIN MR #: [id number] : 1955 Age/Sex: 63/F Req #: [id number] Adm Physician: Ordered by: DALIA BRASWELL MD Report #: [id number] Location: OR Room/Bed: Procedure: [id number] DX/CHEST 2 VIEWS Exam Date: Exam Time: [...] 01/06/19 1200 COPY TO: DALIA BRASWELL MD FNGLON8981-25-54 15:29:00* Test Item Value Reference Range Interpretation Comments GLUBED (test code = GLUBED) 90 mg/dL 74-106 N Performed by certified rail switch operator at [facility] PROTHROMBIN MYMI0876-10-94 14:47:00* Test Item Value Reference Range Interpretation [...] PATIENT ON ANTICOAGULANTS? YLIST ANTICOAGULANTS COUMADINTHROMBOPLASTIN TIME FZWPKYG7807-62-86 14:47:00* Test Item Value Reference Range Interpretation Comments THROMBOPLASTIN TIME PARTIAL (test code = PTT) 35.6 seconds 25.0-36. 5 N IS PATIENT ON ANTICOAGULANTS? YLIST ANTICOAGULANTS COUMADINCOMPREHENSIVE METABOLIC DXIGW4224-11-29 12:49:00* Test Item Value Reference Range Interpretation [...] due to change in reagent. COMPREHENSIVE METABOLIC ZTCXZ6285-77-83 12:41:00* Test Item Value Reference Range Interpretation [...] code = ALKP) IUnit/L 45-117 CBC W/AUTO SIXX6925-98-06 12:34:00* Test Item Value Reference Range Interpretation [...] NRBC#) 0.02 K/mm3 0.0-0.1 N CHEST 2 FWAWI3775-33-05 17:00:00 [facility] [address] [address] Patient Name: GABBIE TOBIN MR #: [id number] : 1955 Age/Sex: 62/F Req #: [id number] Adm Physician: Ordered by: PRISCILLA ARRINGTON MD [...] enlarged. BONES AND SOFT TISSUES: No ac [place] osseous lesion. Soft tissues are unremarkable. UPPER [...] ARRINGTON MD CT ABDOMEN/PELVIS WO 2018-09-20 18:22:00 [facility] [address] [address] Patient Name: GABBIE TOBIN MR #: [id number] : 1955 Age/Sex: 62/F Req #: [id number] Adm Physician: Ordered by: AN POWELL MD Report #: [id number] Location: CT Room/Bed: Procedure: [id number] CT/ CT ABDOMEN/PELVIS WO Exam Date: 09/20/18 [...] on 09/20 COPY TO: AN POWELL MD JMQWRS8333-74-70 12:17:00* Test Item Value Reference Range Interpretation Comments GLUBED (test code = GLUBED) 109 mg/dL 74-106 H Performed by certified rail switch operator at [facility] XONFBA5251-52-91 09:35:00* Test Item Value Reference Range Interpretation Comments GLUBED (test code = GLUBED) 89 mg/dL 74-106 N Performed by certified rail switch operator at [facility] KHDMJB4649-93-48 21:45:00* Test Item Value Reference Range Interpretation Comments GLUCHESTER (test code = GLUBED) 134 mg/dL 74-106 H Performed by certified rail switch operator at [facility] - XR CHEST 1 Z9153-86-69 14:42:00 FAX: Sean Guadarrama MD [phone] [place]: St: ADM FAX: Edith Villatoro MD [phone] FAX: Kylee Braun MD [phone] Name: GABBIE TOBIN [facility] : 1955 Age/S: 62/F [address] [facility] Unit #: [id number] Loc: V.[address] [place] [address] Phys: Edith Lyman MD Acct: [id number] Dis Date: Status: ADM IN ONE #: [phone] Exam Date: 09/15/2018 1420 FAX #: [phone] Reason: LINE PLACEMENT EXAMS: CPT CODE: [id number] XR CHEST 1 V 30723 REASON FOR EXAM: LINE PLACEMENT EXAM ORDER [...] Technologist: YAW RICHARDS RT(R) Trnscrd Date/Time/By: 09/15/2018 (1445) : By: Bradley Orig Randolph int D/T: S: 09/15/2018 (0446) PAGE 1 Signed Report COMPREHENSIVE METABOLIC PANEL [...] due to change in reagent. COMPREHENSIVE METABOLIC GRNNF7180-17-27 11:22:00* Test Item Value Reference Range Interpretation [...] code = ALKP) IUnit/L 45-117 CBC W/AUTO LUFB8973-92-98 10:43:00* Test Item Value Reference Range Interpretation [...] REQUIRED (test code = MDIFF) NO PROTHROMBIN XXYK3942-96-55 23:53:00* Test Item Value Reference Range Interpretation [...] (2.5-3.5) IS PATIENT ON ANTICOAGULANTS? NCBC W/AUTO MSSA1702-44-12 23:51:00* Test Item Value Reference Range Interpretation [...] (test code = MDIFF) NO COMPREHENSIVE METABOLIC XSGNK7391-79-49 23:47:00* Test Item Value Reference Range Interpretation [...] due to change in reagent. COMPREHENSIVE METABOLIC YXZLE6727-72-44 23:41:00* Test Item Value Reference Range Interpretation [...] (test code = ALKP) IUnit/L 45-117 Urine Kdoogir6937-80-42 06:24:00* Test Item Value Reference Range Interpretation Comments Urine Culture (test code = 630-4) Organism: NIRANJAN ALBICANS [facility] Rlzcv5949-60-67 06:11:00* Test Item Value Reference Range Interpretation Comments Sodium Level (test code = 2951-2) 138 136-145 [facility] Eapda3147-60-69 06:11:00* Test Item Value Reference Range Interpretation Comments Potassium Level (test code = 2823-3) 4.6 3.5-5.1 [facility]manChloride Wcdna9396-37-71 06:11:00* Test Item Value Reference Range Interpretation Comments Chloride Level (test code = 2075-0) 109 98-107 H [facility]manCarbon Dioxide Ckico9391-95-10 06:11:00* Test Item Value Reference Range Interpretation Comments Carbon Dioxide Level (test code = 2028-9) 21 22-29 L [facility]manAnion Lxm2205-59-55 06:11:00* Test Item Value Reference Range Interpretation Comments Anion Gap (test code = 43874-9) 12.6 8-16 [facility]manBlood Urea Ofgwxulc1859-17-18 06:11:00* Test Item Value Reference Range Interpretation Comments Blood Urea Nitrogen (test code = 3094-0) 48 7-26 H [facility]manCreatinine2019-03-10 06:11:00* Test Item Value Reference Range Interpretation Comments Creatinine (test code = 2160-0) 3.53 0.57-1.11 H [facility]manBUN/Creatinine Tfkgi6165-58-71 06:11:00* Test Item Value Reference Range Interpretation Comments BUN/Creatinine Ratio (test code = 3097-3) 14 6-25 [facility]manEstimat Glomerular Filtration Rate 2018-05-30 06:11:00* Test Item Value Reference Range Interpretation Comments Estimat Glomerular Filtration Rate (test code = 873274997) 13 >60 L Ranges were taken from the National Kidney Disease Education Program and the [facility] Kidney Foundation literature.Reference ranges:60 or greater: Vafxey58-87 ( for 3 consecutive months): Chronic kidney disease 15 or less: Kidney failureTexas Health KaufmanGlucose Vfdyb2378-81-74 06:11:00* Test Item Value Reference Range Interpretation Comments Glucose Level (test code = MOS7578) 121 74-118 H [facility]manCalcium Dlnnc6188-31-39 06:11:00* Test Item Value Reference Range Interpretation Comments Calcium Level (test code = 15024-7) 9.0 8.4-10.2 [facility]odium Oerju2044-27-52 06:11:00* Test Item Value Reference Range Interpretation Comments Sodium Level (test code = 2951-2) 138 136-145 [facility]manPotassium Jgijj1614-03-80 06:11:00* Test Item Value Reference Range Interpretation Comments Potassium Level (test code = 2823-3) 4.6 3.5-5.1 [facility]manChloride Fgrkl0513-14-29 06:11:00* Test Item Value Reference Range Interpretation Comments Chloride Level (test code = 2075-0) 109 98-107 H [facility]aufmanCarbon Dioxide Howwr9725-73-83 06:11:00* Test Item Value Reference Range Interpretation Comments Carbon Dioxide Level (test code = 2028-9) 21 22-29 L [facility]aufmanAnion Mcu9961-37-39 06:11:00* Test Item Value Reference Range Interpretation Comments Anion Gap (test code = 29683-1) 12.6 8-16 [facility]manBlood Urea Pzepfttk2247-66-42 06:11:00* Test Item Value Reference Range Interpretation Comments Blood Urea Nitrogen (test code = 3094-0) 48 7-26 H [facility]aufmanCreatinine2019-03-10 06:11:00* Test Item Value Reference Range Interpretation Comments Creatinine (test code = 2160-0) 3.53 0.57-1.11 H [facility]manBUN/Creatinine Xsjfs2470-03-25 06:11:00* Test Item Value Reference Range Interpretation Comments BUN/Creatinine Ratio (test code = 3097-3) 14 6-25 [facility]manEstimat Glomerular Filtration Rate 2018-05-30 06:11:00* Test Item Value Reference Range Interpretation Comments Estimat Glomerular Filtration Rate (test code = 284605181) 13 >60 L Ranges were taken from the National Kidney Disease Education Program and the [facility] Kidney Foundation literature.Reference ranges:60 or greater: Qqtcjp05-64 ( for 3 consecutive months): Chronic kidney disease 15 or less: Kidney failureTexas Health KaufmanGlucose Ehzzu0882-28-68 06:11:00* Test Item Value Reference Range Interpretation Comments Glucose Level (test code = BYC1229) 121 74-118 H [facility]aufmanCalcium Izpnl3234-41-13 06:11:00* Test Item Value Reference Range Interpretation Comments Calcium Level (test code = 75526-1) 9.0 8.4-10.2 [facility]manWhite Blood Unlbb9857-11-50 05:55:00* Test Item Value Reference Range Interpretation Comments White Blood Count (test code = 6690-2) 18.99 4.8-10.8 H [facility]aufmanRed Blood Ffldr8860-61-91 05:55:00* Test Item Value Reference Range Interpretation Comments Red Blood Count (test code = 789-8) 3.47 3.6-5.1 L [facility]manHemoglobin2019-03-10 05:55:00* Test Item Value Reference Range Interpretation Comments Hemoglobin (test code = 91743-5) 9.6 12.0-16.0 L [facility]manHematocrit2019-03-10 05:55:00* Test Item Value Reference Range Interpretation Comments Hematocrit (test code = 4544-3) 31.1 34.2-44.1 L [facility] KaufmanMean Corpuscular Taifvr2087-43-49 05:55:00* Test Item Value Reference Range Interpretation Comments Mean Corpuscular Volume (test code = 787-2) 89.6 81-99 [facility]manMean Corpuscular Xyvhccflpi3026-33-01 05:55:00* Test Item Value Reference Range Interpretation Comments Mean Corpuscular Hemoglobin (test code = 785-6) 27.7 28-32 L [facility] KaufmanMean Corpuscular Hemoglobin Concent 2018-05-30 05:55:00* Test Item Value Reference Range Interpretation Comments Mean Corpuscular Hemoglobin Concent (test code = 786-4) 30.9 31-35 L [facility] KaufmanRed Cell Distribution Nqfsw7895-58-86 05:55:00* Test Item Value Reference Range Interpretation Comments Red Cell Distribution Width (test code = 65612-9) 15.9 11.7 -14.4 [facility]manPlatelet Wnzvk1098-81-63 05:55:00* Test Item Value Reference Range Interpretation Comments Platelet Count (test code = 777-3) 615 140-360 [facility]manNeutrophils (%) (Auto)2018-05-30 05:55:00 * Test Item Value Reference Range Interpretation Comments Neutrophils (%) (Auto) (test code = 13553-5) 73.6 38.7-80.0 [facility]manLymphocytes (%) (Auto)2018-05-30 05:55:00 * Test Item Value Reference Range Interpretation Comments Lymphocytes (%) (Auto) (test code = 736-9) 17.8 18.0-39.1 L [facility]manMonocytes (%) (Auto)2018-05-30 05:55:00* Test Item Value Reference Range Interpretation Comments Monocytes (%) (Auto) (test code = 5905-5) 6.4 4.4-11.3 [facility]Eosinophils (%) (Auto)2018-05-30 05:55:00 * Test Item Value Reference Range Interpretation Comments Eosinophils (%) (Auto) (test code = 713-8) 1.1 0.0-6.0 [facility]manBasophils (%) (Auto)2018-05-30 05:55:00* Test Item Value Reference Range Interpretation Comments Basophils (%) (Auto) (test code = 706-2) 0.3 0.0-1.0 [facility]manIM GRANULOCYTES %2018-05-30 05:55:00* Test Item Value Reference Range Interpretation Comments IM GRANULOCYTES % (test code = IM GRANULOCYTES %) 0.8 0.0- 1.0 [facility]Neutrophils # (Auto)2018-05-30 05:55:00* Test Item Value Reference Range Interpretation Comments Neutrophils # (Auto) (test code = 751-8) 14.0 2.1-6.9 [facility]manLymphocytes # (Auto)2018-05-30 05:55:00* Test Item Value Reference Range Interpretation Comments Lymphocytes # (Auto) (test code = 40224-3) 3.4 1.0-3.2 [facility]manMonocytes # (Auto)2018-05-30 05:55:00* Test Item Value Reference Range Interpretation Comments Monocytes # (Auto) (test code = 742-7) 1.2 0.2-0.8 [facility]Eosinophils # (Auto)2018-05-30 05:55:00* Test Item Value Reference Range Interpretation Comments Eosinophils # (Auto) (test code = 711-2) 0.2 0.0-0.4 [facility]Basophils # (Auto)2018-05-30 05:55:00* Test Item Value Reference Range Interpretation Comments Basophils # (Auto) (test code = 704-7) 0.1 0.0-0.1 [facility]manAbsolute Immature Granulocyte (auto 2018-05-30 05:55:00* Test Item Value Reference Range Interpretation Comments Absolute Immature Granulocyte (auto (ortega t code = Absolute Immature Granulocyte (auto) 0.15 0-0.1 [facility]manWhite Blood Tjvuz4886-10-15 05:55:00* Test Item Value Reference Range Interpretation Comments White Blood Count (test code = 6690-2) 18.99 4.8-10.8 [facility]manRed Blood Dmand6807-37-00 05:55:00* Test Item Value Reference Range Interpretation Comments Red Blood Count (test code = 789-8) 3.47 3.6-5.1 L [facility]manHemoglobin2019-03-10 05:55:00* Test Item Value Reference Range Interpretation Comments Hemoglobin (test code = 14641-4) 9.6 12.0-16.0 L [facility]manHematocrit2019-03-10 05:55:00* Test Item Value Reference Range Interpretation Comments Hematocrit (test code = 4544-3) 31.1 34.2-44.1 L [facility]Mean Corpuscular Cqzvff2270-91-32 05:55:00* Test Item Value Reference Range Interpretation Comments Mean Corpuscular Volume (test code = 787-2) 89.6 81-99 [facility]Mean Corpuscular Fjjgndezbr2150-10-71 05:55:00* Test Item Value Reference Range Interpretation Comments Mean Corpuscular Hemoglobin (test code = 785-6) 27.7 28-32 L [facility]manMean Corpuscular Hemoglobin Concent 2018-05-30 05:55:00* Test Item Value Reference Range Interpretation Comments Mean Corpuscular Hemoglobin Concent (test code = 786-4) 30.9 31-35 L [facility]manRed Cell Distribution Enkaq2700-67-21 05:55:00* Test Item Value Reference Range Interpretation Comments Red Cell Distribution Width (test code = 25444-5) 15.9 11.7 -14.4 [facility]manPlatelet Teemq2127-30-37 05:55:00* Test Item Value Reference Range Interpretation Comments Platelet Count (test code = 777-3) 615 140-360 [facility]manNeutrophils (%) (Auto)2018-05-30 05:55:00 * Test Item Value Reference Range Interpretation Comments Neutrophils (%) (Auto) (test code = 15737-1) 73.6 38.7-80.0 [facility]manLymphocytes (%) (Auto)2018-05-30 05:55:00 * Test Item Value Reference Range Interpretation Comments Lymphocytes (%) (Auto) (test code = 736-9) 17.8 18.0-39.1 L [facility]manMonocytes (%) (Auto)2018-05-30 05:55:00* Test Item Value Reference Range Interpretation Comments Monocytes (%) (Auto) (test code = 5905-5) 6.4 4.4-11.3 [facility]manEosinophils (%) (Auto)2018-05-30 05:55:00 * Test Item Value Reference Range Interpretation Comments Eosinophils (%) (Auto) (test code = 713-8) 1.1 0.0-6.0 [facility]Basophils (%) (Auto)2018-05-30 05:55:00* Test Item Value Reference Range Interpretation Comments Basophils (%) (Auto) (test code = 706-2) 0.3 0.0-1.0 [facility]manIM GRANULOCYTES %2018-05-30 05:55:00* Test Item Value Reference Range Interpretation Comments IM GRANULOCYTES % (test code = IM GRANULOCYTES %) 0.8 0.0- 1.0 [facility]manNeutrophils # (Auto)2018-05-30 05:55:00* Test Item Value Reference Range Interpretation Comments Neutrophils # (Auto) (test code = 751-8) 14.0 2.1-6.9 [facility]manLymphocytes # (Auto)2018-05-30 05:55:00* Test Item Value Reference Range Interpretation Comments Lymphocytes # (Auto) (test code = 45109-6) 3.4 1.0-3.2 [facility]manMonocytes # (Auto)2018-05-30 05:55:00* Test Item Value Reference Range Interpretation Comments Monocytes # (Auto) (test code = 742-7) 1.2 0.2-0.8 [facility]Eosinophils # (Auto)2018-05-30 05:55:00* Test Item Value Reference Range Interpretation Comments Eosinophils # (Auto) (test code = 711-2) 0.2 0.0-0.4 [facility]Basophils # (Auto)2018-05-30 05:55:00* Test Item Value Reference Range Interpretation Comments Basophils # (Auto) (test code = 704-7) 0.1 0.0-0.1 [facility]manAbsolute Immature Granulocyte (auto 2018-05-30 05:55:00* Test Item Value Reference Range Interpretation Comments Absolute Immature Granulocyte (auto (ortega t code = Absolute Immature Granulocyte (auto) 0.15 0-0.1 H [facility]manUrine Oshtziu7687-09-99 10:51:00* Test Item Value Reference Range Interpretation Comments Urine Culture (test code = 630-4) Organism: YEAST SPECIES [facility]manUrine Nfybftl4818-73-19 08:05:00* Test Item Value Reference Range Interpretation Comments Urine Culture (test code = 630-4) Organism: NIRANJAN ALBICANS [facility]manUrine Ynjvihe3529-62-56 08:05:00* Test Item Value Reference Range Interpretation Comments Urine Culture (test code = 630-4) Organism: NIRANJAN ALBICANS [facility]manProthrombin Vkgv7788-21-03 06:44:00* Test Item Value Reference Range Interpretation Comments Prothrombin Time (test code = 5902-2) 20.0 11.9-14.5 H [facility]manProthromb Time International Ratio 2018-05-27 06:44:00* Test Item Value Reference Range Interpretation Comments Prothromb Time International Ratio (test code = 6301-6) 1.64 Oral Anticoagulant Therapy INR Values:1. Low Intensity Therapy 1.5 - 2.02 . Moderate Intensity Therapy 2.0 - 3.03. High Intensity Therapy(1) 2.5 - 3. 54. High Intensity Therapy(2) 3.0 - 4.05. Panic Value INR > 5.0 [facility]manProthrombin Ryyo7821-65-92 06:44:00* Test Item Value Reference Range Interpretation Comments Prothrombin Time (test code = 5902-2) 20.0 11.9-14.5 H [facility]manProthromb Time International Ratio 2018-05-27 06:44:00* Test Item Value Reference Range Interpretation Comments Prothromb Time International Ratio (test code = 6301-6) 1.64 Oral Anticoagulant Therapy INR Values:1. Low Intensity Therapy 1.5 - 2.02 . Moderate Intensity Therapy 2.0 - 3.03. High Intensity Therapy(1) 2.5 - 3. 54. High Intensity Therapy(2) 3.0 - 4.05. Panic Value INR > 5.0 [facility]manABDOMEN-[facility]VIEW (KUB)2018-05-25 10:23:00 [place] [address] Patient Name: GABBIE TOBIN MR #: [id number] : 1955 Age/Sex: 62/F Req #: [id number] Adm Physician: KYLEE ACOSTA MD Ordered by: AN POWELL MD Report #: [id number] [facility] Room[facility]Bed: [facility] Procedure: [id number] DX/ ABDOMEN-1VIEW (KUB) Exam Date: 05/25/18 Exam [...] 1035 COPY TO: AN POWELL MD Magnesium Yiptw9483-08-21 07:15:00* Test Item Value Reference Range Interpretation Comments Magnesium Level (test code = 18695-8) 1.6 1.3-2.1 [facility]manMagnesium Sdigp5876-18-75 07:15:00* Test Item Value Reference Range Interpretation Comments Magnesium Level (test code = 80020-4) 1.6 1.3-2.1 [facility]manTotal Fmrfnlnev4293-57-98 07:05:00* Test Item Value Reference Range Interpretation Comments Total Bilirubin (test code = 1975-2) 0.2 0.2-1.2 [facility]manAspartate Amino Transf (AST/SGOT) 2018-05-25 07:05:00* Test Item Value Reference Range Interpretation Comments Aspartate Amino Transf (AST/SGOT) (test code = Aspartate Amino Transf (AST/SGOT)) 11 5-34 [facility]manAlanine Aminotransferase (ALT/SGPT) 2018-05-25 07:05:00* Test Item Value Reference Range Interpretation Comments Alanine Aminotransferase (ALT/SGPT) (test code = 1742-6) 9 0-55 [facility]manTotal Hrlomfi4135-95-35 07:05:00* Test Item Value Reference Range Interpretation Comments Total Protein (test code = 2885-2) 6.5 6.5-8.1 [facility]manAlbumin2019-03-05 07:05:00* Test Item Value Reference Range Interpretation Comments Albumin (test code = 1751-7) 2.7 3.5-5.0 L [facility]manGlobulin2019-03-05 07:05:00* Test Item Value Reference Range Interpretation Comments Globulin (test code = 01676-9) 3.8 2.3-3.5 H [facility]manAlbumin/Globulin Kkohj0541-10-78 07:05:00 * Test Item Value Reference Range Interpretation Comments Albumin/Globulin Ratio (test code = 1759-0) 0.7 0.8-2.0 L [facility]manAlkaline Jwujdnmlxdg6578-49-60 07:05:00* Test Item Value Reference Range Interpretation Comments Alkaline Phosphatase (test code = 6768-6) 61 40-150 [facility]manTotal Vsjlykofe5047-95-78 07:05:00* Test Item Value Reference Range Interpretation Comments Total Bilirubin (test code = 1975-2) 0.2 0.2-1.2 [facility]manAspartate Amino Transf (AST/SGOT) 2018-05-25 07:05:00* Test Item Value Reference Range Interpretation Comments Aspartate Amino Transf (AST/SGOT) (test code = Aspartate Amino Transf (AST/SGOT)) 11 5-34 [facility]manAlanine Aminotransferase (ALT/SGPT) 2018-05-25 07:05:00* Test Item Value Reference Range Interpretation Comments Alanine Aminotransferase (ALT/SGPT) (test code = 1742-6) 9 0-55 [facility]manTotal Gypwcqv8533-89-96 07:05:00* Test Item Value Reference Range Interpretation Comments Total Protein (test code = 2885-2) 6.5 6.5-8.1 [facility]manAlbumin2019-03-05 07:05:00* Test Item Value Reference Range Interpretation Comments Albumin (test code = 1751-7) 2.7 3.5-5.0 L [facility]manGlobulin2019-03-05 07:05:00* Test Item Value Reference Range Interpretation Comments Globulin (test code = 39764-2) 3.8 2.3-3.5 H [facility]manAlbumin/Globulin Vlrmn8691-68-77 07:05:00 * Test Item Value Reference Range Interpretation Comments Albumin/Globulin Ratio (test code = 1759-0) 0.7 0.8-2.0 L [facility]manAlkaline Ljvcdpuuchj7247-59-16 07:05:00* Test Item Value Reference Range Interpretation Comments Alkaline Phosphatase (test code = 6768-6) 61 40-150 [facility]manUrine BWV4712-17-73 20:13:00* Test Item Value Reference Range Interpretation Comments Urine WBC (test code = 5821-4) >50 0-5 H [facility]manUrine RKF6851-62-53 20:13:00* Test Item Value Reference Range Interpretation Comments Urine RBC (test code = 53250-7) 6-10 0-5 H [facility]manUrine Xeaisrgw6161-82-10 20:13:00* Test Item Value Reference Range Interpretation Comments Urine Bacteria (test code = 16359-5) FEW NONE [facility]manUrine Epithelial Sqkzn9709-64-45 20:13:00 * Test Item Value Reference Range Interpretation Comments Urine Epithelial Cells (test code = 14595-7) RARE NONE [facility]manUrine TFY7195-57-39 20:13:00* Test Item Value Reference Range Interpretation Comments Urine WBC (test code = 5821-4) >50 0-5 H [facility]manUrine WZW7213-16-31 20:13:00* Test Item Value Reference Range Interpretation Comments Urine RBC (test code = 40130-4) 6-10 0-5 H [facility]manUrine Dccizlpf2505-23-77 20:13:00* Test Item Value Reference Range Interpretation Comments Urine Bacteria (test code = 77396-3) FEW NONE [facility] Epithelial Oyepa0178-06-98 20:13:00 * Test Item Value Reference Range Interpretation Comments Urine Epithelial Cells (test code = 98907-6) RARE NONE [facility]manUrine Wgrce4277-68-85 19:58:00* Test Item Value Reference Range Interpretation Comments Urine Color (test code = 5778-6) YELLOW YELLOW [facility] Azwptkt2623-72-92 19:58:00* Test Item Value Reference Range Interpretation Comments Urine Clarity (test code = 77637-8) CLOUDY CLEAR H [facility] Specific Yvjrrfm6748-54-38 19:58:00 * Test Item Value Reference Range Interpretation Comments Urine Specific [place] (test code = 5811-5) 1.025 1.010-1.02 5 [facility]manU[facility] mC0002-31-62 19:58:00* Test Item Value Reference Range Interpretation Comments Urine pH (test code = 89305-3) 6 5-7 [facility] Leukocyte Oussombr2154-89-84 19:58:00* Test Item Value Reference Range Interpretation Comments Urine Leukocyte Esterase (test code = 5799-2) 1+ NEGATIVE H [facility] Gfagjrw2955-67-22 19:58:00* Test Item Value Reference Range Interpretation Comments Urine Nitrite (test code = 29300-9) NEGATIVE NEGATIVE [facility] Mgrwdvb5328-63-88 19:58:00* Test Item Value Reference Range Interpretation Comments Urine Protein (test code = 5804-0) 3+ NEGATIVE H [facility]manUrine Glucose (UA)2018-05-23 19:58:00* Test Item Value Reference Range Interpretation Comments Urine Glucose (UA) (test code = 2349-9) NEGATIVE NEGATIVE [facility]manU[facility] Aivskvd6227-89-04 19:58:00* Test Item Value Reference Range Interpretation Comments Urine Ketones (test code = 59155-2) NEGATIVE NEGATIVE [facility] Rjazecuzdexw6588-93-17 19:58:00* Test Item Value Reference Range Interpretation Comments Urine Urobilinogen (test code = 97645-1) 0.2 0.2-1 [facility]manUrine Bmkhubipd3399-19-24 19:58:00* Test Item Value Reference Range Interpretation Comments Urine Bilirubin (test code = 1978-6) NEGATIVE NEGATIVE [facility] Urybi9920-14-96 19:58:00* Test Item Value Reference Range Interpretation Comments Urine Blood (test code = 06496-1) 1+ NEGATIVE H [facility]manUrine Jreuc0825-81-67 19:58:00* Test Item Value Reference Range Interpretation Comments Urine Color (test code = 5778-6) YELLOW YELLOW [facility]manU[facility] Rnxwezi3907-66-41 19:58:00* Test Item Value Reference Range Interpretation Comments Urine Clarity (test code = 68080-2) CLOUDY CLEAR H [facility]manU[facility] Specific Hohozlj5490-76-83 19:58:00 * Test Item Value Reference Range Interpretation Comments Urine Specific [place] (test code = 5811-5) 1.025 1.010-1.02 5 [facility]manUrine fL6732-46-76 19:58:00* Test Item Value Reference Range Interpretation Comments Urine pH (test code = 59033-1) 6 5-7 [facility] Leukocyte Mazpclbs7319-49-25 19:58:00* Test Item Value Reference Range Interpretation Comments Urine Leukocyte Esterase (test code = 5799-2) 1+ NEGATIVE H [facility]manUrine Wfsmjmq1990-31-77 19:58:00* Test Item Value Reference Range Interpretation Comments Urine Nitrite (test code = 96506-2) NEGATIVE NEGATIVE [facility] Xrbsmxq0801-21-72 19:58:00* Test Item Value Reference Range Interpretation Comments Urine Protein (test code = 5804-0) 3+ NEGATIVE H [facility]manUrine Glucose (UA)2018-05-23 19:58:00* Test Item Value Reference Range Interpretation Comments Urine Glucose (UA) (test code = 2349-9) NEGATIVE NEGATIVE [facility]manUrine Jvacmhy8882-30-56 19:58:00* Test Item Value Reference Range Interpretation Comments Urine Ketones (test code = 45108-9) NEGATIVE NEGATIVE [facility]manU[facility] Gehhbatgegor9342-73-63 19:58:00* Test Item Value Reference Range Interpretation Comments Urine Urobilinogen (test code = 51836-3) 0.2 0.2-1 [facility]manUrine Akyondwhd7314-16-00 19:58:00* Test Item Value Reference Range Interpretation Comments Urine Bilirubin (test code = 1978-6) NEGATIVE NEGATIVE [facility]manU[facility] Sltyp1906-21-04 19:58:00* Test Item Value Reference Range Interpretation Comments Urine Blood (test code = 18946-7) 1+ NEGATIVE H [facility]manMagnesium Wvzpu3074-98-54 08:37:00* Test Item Value Reference Range Interpretation Comments Magnesium Level (test code = 19224-3) 2.0 1.3-2.1 [facility] Mt[facility]28 08:18:00* Test Item Value Reference Range Interpretation Comments Sodium Level (test code = 2951-2) 140 136-145 [facility]manPotassium Fuupl2074-63-38 08:18:00* Test Item Value Reference Range Interpretation Comments Potassium Level (test code = 2823-3) 3.8 3.5-5.1 [facility]manChloride Quypl4518-44-54 08:18:00* Test Item Value Reference Range Interpretation Comments Chloride Level (test code = 2075-0) 104 98-107 [facility]manCarbon Dioxide Iergk4725-06-01 08:18:00* Test Item Value Reference Range Interpretation Comments Carbon Dioxide Level (test code = 2028-9) 22 22-29 [facility]manAnion Bdw0124-90-47 08:18:00* Test Item Value Reference Range Interpretation Comments Anion Gap (test code = 97380-3) 17.8 8-16 H [facility]manBlood Urea Jvnfxfhj7023-72-41 08:18:00* Test Item Value Reference Range Interpretation Comments Blood Urea Nitrogen (test code = 3094-0) 30 7-26 [facility]manCreatinine2018-12-30 08:18:00* Test Item Value Reference Range Interpretation Comments Creatinine (test code = 2160-0) 2.76 0.57-1.11 H [facility]manBUN/Creatinine Nqzew2702-46-26 08:18:00* Test Item Value Reference Range Interpretation Comments BUN/Creatinine Ratio (test code = 3097-3) 11 6-25 [facility]manEstimat Glomerular Filtration Rate 2018-03-21 08:18:00* Test Item Value Reference Range Interpretation Comments Estimat Glomerular Filtration Rate (test code = 216452179) 17 >60 L Ranges were taken from the National Kidney Disease Education Program and the [facility] Kidney Foundation literature.Reference ranges:60 or greater: Gddglc13-91 ( for 3 consecutive months): Chronic kidney disease 15 or less: Kidney failureTexas Health KaufmanGlucose Wiyxd7801-12-00 08:18:00* Test Item Value Reference Range Interpretation Comments Glucose Level (test code = MQZ2695) 94 74-118 [facility]manCalcium Ktufz0690-21-81 08:18:00* Test Item Value Reference Range Interpretation Comments Calcium Level (test code = 75458-9) 9.6 8.4-10.2 [facility]manTotal Kuokohmez8871-15-16 08:18:00* Test Item Value Reference Range Interpretation Comments Total Bilirubin (test code = 1975-2) 0.4 0.2-1.2 [facility]aufmanAspartate Amino Transf (AST/SGOT) 2018-03-21 08:18:00* Test Item Value Reference Range Interpretation Comments Aspartate Amino Transf (AST/SGOT) (test code = Aspartate Amino Transf (AST/SGOT)) 18 5-34 [facility]manAlanine Aminotransferase (ALT/SGPT) 2018-03-21 08:18:00* Test Item Value Reference Range Interpretation Comments Alanine Aminotransferase (ALT/SGPT) (test code = 1742-6) 12 0-55 [facility]manTotal Lglmmcy0286-08-16 08:18:00* Test Item Value Reference Range Interpretation Comments Total Protein (test code = 2885-2) 7.2 6.5-8.1 [facility]manAlbumin2018-12-30 08:18:00* Test Item Value Reference Range Interpretation Comments Albumin (test code = 1751-7) 2.6 3.5-5.0 L [facility]manGlobulin2018-12-30 08:18:00* Test Item Value Reference Range Interpretation Comments Globulin (test code = 51141-9) 4.6 2.3-3.5 H [facility]aufmanAlbumin/Globulin Ekglz7721-58-99 08:18:00 * Test Item Value Reference Range Interpretation Comments Albumin/Globulin Ratio (test code = 1759-0) 0.6 0.8-2.0 L [facility]manAlkaline Bhoreqpjsxr4591-05-72 08:18:00* Test Item Value Reference Range Interpretation Comments Alkaline Phosphatase (test code = 6768-6) 78 40-150 [facility]manWhite Blood Okgpj2063-15-73 07:46:00* Test Item Value Reference Range Interpretation Comments White Blood Count (test code = 6690-2) 17.06 4.8-10.8 H [facility]manRed Blood Tftsj3628-81-62 07:46:00* Test Item Value Reference Range Interpretation Comments Red Blood Count (test code = 789-8) 3.81 3.6-5.1 [facility]manHemoglobin2018-12-30 07:46:00* Test Item Value Reference Range Interpretation Comments Hemoglobin (test code = 26148-5) 10.0 12.0-16.0 L [facility]manHematocrit2018-12-30 07:46:00* Test Item Value Reference Range Interpretation Comments Hematocrit (test code = 4544-3) 32.9 34.2-44.1 L [facility]manMean Corpuscular Priryu5617-86-80 07:46:00* Test Item Value Reference Range Interpretation Comments Mean Corpuscular Volume (test code = 787-2) 86.4 81-99 [facility]manMean Corpuscular Ixibvhzhak1626-57-39 07:46:00* Test Item Value Reference Range Interpretation Comments Mean Corpuscular Hemoglobin (test code = 785-6) 26.2 28-32 L [facility]manMean Corpuscular Hemoglobin Concent 2018-03-21 07:46:00* Test Item Value Reference Range Interpretation Comments Mean Corpuscular Hemoglobin Concent (test code = 786-4) 30.4 31-35 L [facility]manRed Cell Distribution Srusm9776-37-07 07:46:00* Test Item Value Reference Range Interpretation Comments Red Cell Distribution Width (test code = 72334-6) 16.0 11.7 -14.4 H [facility]aufmanPlatelet Sfzyy8091-04-77 07:46:00* Test Item Value Reference Range Interpretation Comments Platelet Count (test code = 777-3) 727 140-360 H [facility]manNeutrophils (%) (Auto)2018-03-21 07:46:00 * Test Item Value Reference Range Interpretation Comments Neutrophils (%) (Auto) (test code = 41588-4) 56.8 38.7-80.0 [facility]manLymphocytes (%) (Auto)2018-03-21 07:46:00 * Test Item Value Reference Range Interpretation Comments Lymphocytes (%) (Auto) (test code = 736-9) 29.5 18.0-39.1 [facility]manMonocytes (%) (Auto)2018-03-21 07:46:00* Test Item Value Reference Range Interpretation Comments Monocytes (%) (Auto) (test code = 5905-5) 7.6 4.4-11.3 [facility]manEosinophils (%) (Auto)2018-03-21 07:46:00 * Test Item Value Reference Range Interpretation Comments Eosinophils (%) (Auto) (test code = 713-8) 4.7 0.0-6.0 [facility]manBasophils (%) (Auto)2018-03-21 07:46:00* Test Item Value Reference Range Interpretation Comments Basophils (%) (Auto) (test code = 706-2) 0.5 0.0-1.0 [facility]manIM GRANULOCYTES %2018-03-21 07:46:00* Test Item Value Reference Range Interpretation Comments IM GRANULOCYTES % (test code = IM GRANULOCYTES %) 0.9 0.0- 1.0 [facility]manNeutrophils # (Auto)2018-03-21 07:46:00* Test Item Value Reference Range Interpretation Comments Neutrophils # (Auto) (test code = 751-8) 9.7 2.1-6.9 H [facility]manLymphocytes # (Auto)2018-03-21 07:46:00* Test Item Value Reference Range Interpretation Comments Lymphocytes # (Auto) (test code = 72962-5) 5.0 1.0-3.2 H [facility]manMonocytes # (Auto)2018-03-21 07:46:00* Test Item Value Reference Range Interpretation Comments Monocytes # (Auto) (test code = 742-7) 1.3 0.2-0.8 H [facility]manEosinophils # (Auto)2018-03-21 07:46:00* Test Item Value Reference Range Interpretation Comments Eosinophils # (Auto) (test code = 711-2) 0.8 0.0-0.4 H [facility]manBasophils # (Auto)2018-03-21 07:46:00* Test Item Value Reference Range Interpretation Comments Basophils # (Auto) (test code = 704-7) 0.1 0.0-0.1 [facility]manAbsolute Immature Granulocyte (auto 2018-03-21 07:46:00* Test Item Value Reference Range Interpretation Comments Absolute Immature Granulocyte (auto (ortega t code = Absolute Immature Granulocyte (auto) 0.15 0-0.1 H [facility]manCHEST 2 VRNHK1367-50-44 09:20:00 [place] [address] Patient Name: GABBIE TOBIN MR #: [id number] : 1955 Age/Sex: 62/F Req #: [id number] [facility] Physician: KYLEE ACOSTA MD Ordered by: PINA RUCKER MD Report #: [id number] Location: [facility] Room/Bed: 287-1 Procedure: [id number] DX/C HEST 2 VIEWS Exam Date: 03/17/18 [...] 03/17/18919 COPY TO: PINA RUCKER MD Prothrombin Qitz7425-87-07 07:26:00* Test Item Value Reference Range Interpretation Comments Prothrombin Time (test code = 5902-2) 31.1 11.9-14.5 [facility]Prothromb Time International Ratio 2018-03-17 07:26:00* Test Item Value Reference Range Interpretation Comments Prothromb Time International Ratio (test code = 6301-6) 2.75 Oral Anticoagulant Therapy INR Values:1. Low Intensity Therapy 1.5 - 2.02 . Moderate Intensity Therapy 2.0 - 3.03. High Intensity Therapy(1) 2.5 - 3. 54. High Intensity Therapy(2) 3.0 - 4.05. Panic Value INR > 5.0 [facility]manRed Cell Morphology Clyyjzp5215-27-24 06:12:00* Test Item Value Reference Range Interpretation Comments Red Cell Morphology Comment (test code = 6742-1) NORMAL [facility]manRed Cell Morphology Ohdpvac0655-01-61 06:12:00* Test Item Value Reference Range Interpretation Comments Red Cell Morphology Comment (test code = 6742-1) NORMAL [facility]manRed Cell Morphology Rlkkbon8500-53-14 06:12:00* Test Item Value Reference Range Interpretation Comments Red Cell Morphology Comment (test code = 6742-1) NORMAL [facility]aufmanDifferential Total Cells Counted 2018-03-17 06:07:00* Test Item Value Reference Range Interpretation Comments Differential Total Cells Counted (test code = Differkari tial Total Cells Counted) 100 [facility]manNeutrophils % (Manual)2018-03-17 06:07:00 * Test Item Value Reference Range Interpretation Comments Neutrophils % (Manual) (test code = 51302-3) 63 40-74 [facility]manBand Neutrophils %2018-03-17 06:07:00* Test Item Value Reference Range Interpretation Comments Band Neutrophils % (test code = 764-1) 2 [facility]manLymphocytes % (Manual)2018-03-17 06:07:00 * Test Item Value Reference Range Interpretation Comments Lymphocytes % (Manual) (test code = 737-7) 21 19-48 [facility]manMonocytes % (Manual)2018-03-17 06:07:00* Test Item Value Reference Range Interpretation Comments Monocytes % (Manual) (test code = 744-3) 11 3.4-9.0 H [facility]manEosinophils % (Manual)2018-03-17 06:07:00 * Test Item Value Reference Range Interpretation Comments Eosinophils % (Manual) (test code = 714-6) 2 0-7 [facility]manBasophils % (Manual)2018-03-17 06:07:00* Test Item Value Reference Range Interpretation Comments Basophils % (Manual) (test code = 40535-4) 1 0-1.5 [facility]aufmanPlatelet Iniqvpoz1056-89-98 06:07:00* Test Item Value Reference Range Interpretation Comments Platelet Estimate (test code = 09793-8) MODERATELY INCREASED [facility]aufmanPlatelet Morphology Fhwksqo3389-04-60 06:07:00* Test Item Value Reference Range Interpretation Comments Platelet Morphology Comment (test code = 01378-1) FEW LARGE [facility]manPoikilocytosis2018-12-26 06:07:00* Test Item Value Reference Range Interpretation Comments Poikilocytosis (test code = 779-9) SLIGHT [facility]manAnisocytosis2018-12-26 06:07:00* Test Item Value Reference Range Interpretation Comments Anisocytosis (test code = 702-1) S [facility]manDifferential Total Cells Counted 2018-03-17 06:07:00* Test Item Value Reference Range Interpretation Comments Differential Total Cells Counted (test code = Differen tial Total Cells Counted) 100 [facility]manNeutrophils % (Manual)2018-03-17 06:07:00 * Test Item Value Reference Range Interpretation Comments Neutrophils % (Manual) (test code = 61384-7) 63 40-74 [facility]manBand Neutrophils %2018-03-17 06:07:00* Test Item Value Reference Range Interpretation Comments Band Neutrophils % (test code = 764-1) 2 [facility]manLymphocytes % (Manual)2018-03-17 06:07:00 * Test Item Value Reference Range Interpretation Comments Lymphocytes % (Manual) (test code = 737-7) 21 19-48 [facility]manMonocytes % (Manual)2018-03-17 06:07:00* Test Item Value Reference Range Interpretation Comments Monocytes % (Manual) (test code = 744-3) 11 3.4-9.0 H [facility]manEosinophils % (Manual)2018-03-17 06:07:00 * Test Item Value Reference Range Interpretation Comments Eosinophils % (Manual) (test code = 714-6) 2 0-7 [facility]manBasophils % (Manual)2018-03-17 06:07:00* Test Item Value Reference Range Interpretation Comments Basophils % (Manual) (test code = 98947-0) 1 0-1.5 [facility]manPlatelet Mupuaypz4913-56-50 06:07:00* Test Item Value Reference Range Interpretation Comments Platelet Estimate (test code = 55012-7) MODERATELY INCREASED [facility]aufmanPlatelet Morphology Btoikdt1314-63-90 06:07:00* Test Item Value Reference Range Interpretation Comments Platelet Morphology Comment (test code = 76810-8) FEW LARGE [facility]manPoikilocytosis2018-12-26 06:07:00* Test Item Value Reference Range Interpretation Comments Poikilocytosis (test code = 779-9) SLIGHT [facility]manAnisocytosis2018-12-26 06:07:00* Test Item Value Reference Range Interpretation Comments Anisocytosis (test code = 702-1) S [facility]manDifferential Total Cells Counted 2018-03-17 06:07:00* Test Item Value Reference Range Interpretation Comments Differential Total Cells Counted (test code = Differkari tial Total Cells Counted) 100 [facility]manNeutrophils % (Manual)2018-03-17 06:07:00 * Test Item Value Reference Range Interpretation Comments Neutrophils % (Manual) (test code = 52439-3) 63 40-74 [facility]manBand Neutrophils %2018-03-17 06:07:00* Test Item Value Reference Range Interpretation Comments Band Neutrophils % (test code = 764-1) 2 [facility]manLymphocytes % (Manual)2018-03-17 06:07:00 * Test Item Value Reference Range Interpretation Comments Lymphocytes % (Manual) (test code = 737-7) 21 19-48 [facility]manMonocytes % (Manual)2018-03-17 06:07:00* Test Item Value Reference Range Interpretation Comments Monocytes % (Manual) (test code = 744-3) 11 3.4-9.0 H [facility]manEosinophils % (Manual)2018-03-17 06:07:00 * Test Item Value Reference Range Interpretation Comments Eosinophils % (Manual) (test code = 714-6) 2 0-7 [facility]manBasophils % (Manual)2018-03-17 06:07:00* Test Item Value Reference Range Interpretation Comments Basophils % (Manual) (test code = 73968-7) 1 0-1.5 [facility]manPlatelet Llznvddy5442-45-81 06:07:00* Test Item Value Reference Range Interpretation Comments Platelet Estimate (test code = 45523-7) MODERATELY INCREASED [facility]manPlatelet Morphology Hvcrcvk5949-20-25 06:07:00* Test Item Value Reference Range Interpretation Comments Platelet Morphology Comment (test code = 39392-0) FEW LARGE [facility]manPoikilocytosis2018-12-26 06:07:00* Test Item Value Reference Range Interpretation Comments Poikilocytosis (test code = 779-9) SLIGHT [facility]manAnisocytosis2018-12-26 06:07:00* Test Item Value Reference Range Interpretation Comments Anisocytosis (test code = 702-1) S [facility]manMicrocytosis2018-12-25 06:41:00* Test Item Value Reference Range Interpretation Comments Microcytosis (test code = 741-9) SLIGHT [facility]manMicrocytosis2018-12-25 06:41:00* Test Item Value Reference Range Interpretation Comments Microcytosis (test code = 741-9) SLIGHT [facility]manMicrocytosis2018-12-25 06:41:00* Test Item Value Reference Range Interpretation Comments Microcytosis (test code = 741-9) SLIGHT [facility]manCHEST 2 YPNYG3791-69-13 15:04:00 [place] [address] Patient Name: GABBIE TOBIN MR #: [id number] : 1955 Age/Sex: 62/F Req #: [id number] Adm Physician: KYLEE ACOSTA MD Ordered by: AN POWELL MD Report #: [id number] Location: MED/SURG3 Room/Bed: [facility] Procedure: [id number] DX/CHEST 2 VIEWS Exam Date: Exam Time: [...] MD 06 Transcribed By: ALEXIA on 03/15/18 2414 COPY TO: AN STACY MD Yfczpoypexcba7680-09-70 09:12:00* Test Item Value Reference Range Interpretation Comments Hypochromasia (test code = 728-6) [facility]ERATE [facility]2018-[facility] 09:12:00* Test Item Value Reference Range Interpretation Comments Hypochromasia (test code = 728-6) MODERATE [facility]manHypochromasia2018-12-24 09:12:00* Test Item Value Reference Range Interpretation Comments Hypochromasia (test code = 728-6) MODERATE [facility]manCT ABDOMEN/PELVIS PF7210-57-57 08:48:00 [facility] [address] [address] Patient Name: GABBIE TOBIN MR #: [id number] : 1955 Age/Sex: 62/F Req #: [id number] Adm Physician: KYLEE ACOSTA MD Ordered by: PINA RUCKER MD Report #: [id number] Location: [facility] Room/Bed: [facility] Procedure: [id number] CT/C T ABDOMEN/PELVIS WO Exam Date: 03/15/18 [...] 9:01 AM Dictated By: BUFFY GUZMAN MD 6780 Transcribed By: ALEXIA on 03/15/18 0901 COPY TO: PINA RUCKER MD Bedside Zwqbrrf0506-41-35 16:27:00* Test Item Value Reference Range Interpretation Comments Bedside Glucose (test code = 39768-6) 356 70-120 H Meter ID: [id number] [facility] Glucose 2018-03-14 16:27:00* Test Item Value Reference Range Interpretation Comments Bedside Glucose (test code = 13334-2) 356 70-120 H Meter ID: [id number] [facility] Glucose 2018-03-14 16:27:00* Test Item Value Reference Range Interpretation Comments Bedside Glucose (test code = 36538-5) 356 70-120 H Meter ID: [id number] 2018-03-10 12:12:00 [facility] [address] [place] [address] Patient Name: GABBIE TOBIN MR #: [id number] : 1955 Age/Sex: 62/F Req #: [id number] Adm Physician: KYLEE ACOSTA MD Ordered by: AN POWELL MD Report #: [id number] Location: MED/SURG3 Room/Bed: [facility] Procedure: [id number] DX/CHEST 2 VIEWS Exam Date: 03/10/18 Exam [...] = Lactic Acid Level) 7.8 4.5- 19.8 [facility]manLactic Acid Opidj4388-76-09 10:15:00* Test Item Value Reference Range Interpretation Comments Lactic Acid Level (test code = Lactic Acid Level) 7.8 4.5- 19.8 [facility]manLactic Acid Vaanf2099-85-21 10:15:00* Test Item Value Reference Range Interpretation Comments Lactic Acid Level (test code = Lactic Acid Level) 7.8 4.5- 19.8 [facility]manUrine BYF8638-80-19 10:53:00* Test Item Value Reference Range Interpretation Comments Urine WBC (test code = 5821-4) NONE 0-5 [facility]manUrine LBM9856-92-43 10:53:00* Test Item Value Reference Range Interpretation Comments Urine RBC (test code = 59870-1) 21-50 0-5 H [facility]manUrine Sgevdwmw5595-07-25 10:53:00* Test Item Value Reference Range Interpretation Comments Urine Bacteria (test code = 51914-4) FEW NONE [facility]manUrine Epithelial Xhdmy5882-69-85 10:53:00 * Test Item Value Reference Range Interpretation Comments Urine Epithelial Cells (test code = 04516-1) FEW NONE [facility]manUrine Gpmsd0609-24-65 10:29:00* Test Item Value Reference Range Interpretation Comments Urine Color (test code = 5778-6) YELLOW YELLOW [facility]manUrine Apdkvye9125-93-04 10:29:00* Test Item Value Reference Range Interpretation Comments Urine Clarity (test code = 01821-5) SL CLOUDY CLEAR [facility]manUrine Specific Tjgbako4860-24-49 10:29:00 * Test Item Value Reference Range Interpretation Comments Urine Specific [place] (test code = 5811-5) 1.025 1.010-1.02 5 [facility]manUrine nD9937-15-49 10:29:00* Test Item Value Reference Range Interpretation Comments Urine pH (test code = 48646-4) 6 5-7 [facility] Leukocyte Fmjrgdmj5096-77-41 10:29:00* Test Item Value Reference Range Interpretation Comments Urine Leukocyte Esterase (test code = 5799-2) NEGATIVE NEGATIVE [facility]manUrine Ocxksod2468-16-33 10:29:00* Test Item Value Reference Range Interpretation Comments Urine Nitrite (test code = 82346-0) NEGATIVE NEGATIVE [facility]manUrine Tnljujv4073-60-18 10:29:00* Test Item Value Reference Range Interpretation Comments Urine Protein (test code = 5804-0) 3+ NEGATIVE H [facility] Glucose (UA)2018-03-09 10:29:00* Test Item Value Reference Range Interpretation Comments Urine Glucose (UA) (test code = 2349-9) NEGATIVE NEGATIVE [facility]manUrine Jbjeuft1005-81-39 10:29:00* Test Item Value Reference Range Interpretation Comments Urine Ketones (test code = 29663-1) NEGATIVE NEGATIVE [facility] Fjkcjvjtapgf7571-41-77 10:29:00* Test Item Value Reference Range Interpretation Comments Urine Urobilinogen (test code = 91771-6) 0.2 0.2-1 [facility]manUrine Bnvfgftvz6731-85-27 10:29:00* Test Item Value Reference Range Interpretation Comments Urine Bilirubin (test code = 1978-6) NEGATIVE NEGATIVE [facility]manUrine Nmjcb2483-57-90 10:29:00* Test Item Value Reference Range Interpretation Comments Urine Blood (test code = 04465-7) 3+ NEGATIVE H [facility]manCT ABDOMEN/PELVIS YG1941-01-29 15:43:00 [facility] [address] [address] Patient Name: GABBIE TOBIN MR #: [id number] : 1955 Age/Sex: 62/F Req #: [id number] Adm Physician: KYLEE ACOSTA MD Ordered by: AN POWELL MD Report #: [id number] Location: MED/SURG3 Room/Bed: [facility] Procedure: [id number] CT/CT AB DOMEN/PELVIS WO Exam Date: 03/07/18 [...] COPY TO: AN POWELL MD WRIST COMPLETE XFJIS4392-41-19 11:47:00 [place] [address] Patient Name: GABBIE TOBIN MR #: [id number] : 1955 Age/Sex: 62/F Req #: [id number] Adm Physician: KYLEE ACOSTA MD Ordered by: PINA RUCKER MD Report #: [id number] Location: MED/SURG3 Room/Bed: 287- Procedure: [id number] DX/W RIST COMPLETE RIGHT Exam Date: 03/06/18 [...] COPY TO: PINA RUCKER MD ELBOW RIGHT BVMZNMKX0081-70-62 11:44:00 [place] [address] Patient Name: GABBIE TOBIN MR #: [id number] : 1955 Age/Sex: 62/F Req #: [id number] Adm Physician: KYLEE ACOSTA MD Ordered by: PINA RUCKER MD Report #: [id number] Location: MED/SURG3 Room/Bed: [facility] Procedure: [id number] DX/E LBOW RIGHT COMPLETE Exam Date: 03/06/18 [...] 03/06/18 1147 COPY TO: PINA RUCKER Urine Kicuqjb8481-83-53 07:55:00* Test Item Value Reference Range Interpretation Comments Urine Culture (test code = 630-4) Organism: ESCHERICHIA COLI [facility] ZI9186-12-90 15:53:00 [place] [address] Patient Name: GABBIE TOBIN MR #: [id number] : 1955 Age/Sex: 62/F Req #: [id number] Adm Physician: Ordered by: FLAKITA GIRARD MD Report #: [id number] Location: ER Room/Bed: Procedure: [id number] C T/CT ABDOMEN/PELVIS WO Exam Date: Exam [...] TO: FLAKITA GIRARD MD Urine Transitional Epithelial Znuuy1039-44-55 13:43:00* Test Item Value Reference Range Interpretation Comments Urine Transitional Epithelial Cells (test code = 8249-5) [facility]helial Uumvx5480-11-13 13:43:00* Test Item Value Reference Range Interpretation Comments Urine Renal Epithelial Cells (test code = 66297-4) FEW NON E [facility] Transitional Epithelial [facility] 2018-03-03 13:43:00* Test Item Value Reference Range Interpretation Comments Urine Transitional Epithelial Cells (test code = 8249-5) [facility]ARE [facility] Renal Epithelial Nabgt7446-80-54 13:43:00* Test Item Value Reference Range Interpretation Comments Urine Renal Epithelial Cells (test code = 74664-6) FEW NON E [facility] Transitional Epithelial Cells 2018-03-03 13:43:00* Test Item Value Reference Range Interpretation Comments Urine Transitional Epithelial Cells (test code = 8249-5) [facility]ARE [facility] Renal Epithelial Asnkb8905-69-54 13:43:00* Test Item Value Reference Range Interpretation Comments Urine Renal Epithelial Cells (test code = 33370-8) FEW NON E H [facility] CenterKNEE LEFT THREE VHHOK9537-04-72 23:56:00 [place] [address] Patient Name: GABBIE TOBIN MR #: [id number] : 1955 Age/Sex: 62/F Req #: [id number] Adm Physician: Ordered by: RONY RONDON MD Report #: [id number] Location: ER Room/Bed: Procedure: [id number] D X/KNEE LEFT THREE VIEWS Exam Date: 01/25/18 Exam Kade e: 2317 REPORT STATUS: Signed KN EE LEFT THREE VIEWS HISTORY: Status post fall down stairs. Pain to left h ip and knee. COMPARISON: None available. FINDINGS: Bones: No ac [place] displaced fracture. Osseous alignment is within normal limits. Join ts: Advanced tricompartmental degenerative changes. Soft tissues: Small joint effusion. Vascular calcifications. IMPRESSION: No acute radiograp hic abnormality. Signed by: DR. Bird Haynes MD on 01/25/2018 11:58 PM Dictated By: BIRD HAYNES MD 57 Transcribed By: ALEXIA on 01/25/182357 COPY TO: RONY DIAMOND MD HIP LEFT 2-3 VW (+/- PELVIS)2018-01-25 23:54:00 [place] [address] Patient Name: GABBIE TOBIN MR #: [id number] : 1955 Age/Sex: 62/F Req #: [id number] Adm Physician: Ordered by: RONY RONDON MD Report #: [id number] Location: ER Room/Bed: Procedure: [id number] D X/HIP LEFT 2-3 VW (+/- PELVIS) [...] BIRD HAYNES MD Transcribed By: ALEXIA on 01/25/184 COPY TO: RONY RONDON MD CT LUMBAR SPINE AZ4524-37-66 23:22:00 [place] [id number] Patient Name: GABBIE TOBIN MR #: [id number] : 1955 Age/Sex: 62/F Req #: [id number] Adm Physician: Ordered by: RONY RONDON MD Report #: [id number] Location: ER Room/Bed: Procedure: [id number] C T/CT LUMBAR SPINE WO Exam Date: 01/25/18 Exam Time: 2310 REPORT STATUS: Signed [place]: CT LUMBAR SPINE WITHOUT CONTRAST History: Low back pain after traum a. Comparison studies: None Technique: Axial images were obtained thro [facility] the lumbar spine from T12. Coronal and [...] 11:39 PM Dictated By: AUDREY DAMIAN MD 2896 Transcribed By: ALEXIA on 01/25/18 2841 COPY T O: RONY RONDON MD Wound Rzyqspn9058-84-61 10:10:00* Test Item Value Reference Range Interpretation Comments Wound Culture (test code = 6462-6) Organism: STAPHYLOCOCCUS AUREUS [facility]Wound Zwsboip0871-15-86 10:10:00* Test Item Value Reference Range Interpretation Comments Wound Culture (test code = 6462-6) Organism: STAPHYLOCOCCUS AUREUS [facility]manBlood Ljdekqk3584-62-84 08:58:00* Test Item Value Reference Range Interpretation Comments Blood Culture (test code = 78864980) NO GROWTH AFTER 5 DAYS, FINAL REPORT [facility] Baejyyg4880-92-26 08:58:00* Test Item Value Reference Range Interpretation Comments Blood Culture (test code = 36080907) NO GROWTH AFTER 5 DAYS, FINAL REPORT [facility]manDifferential Total Cells Counted 2017-07-23 09:43:00* Test Item Value Reference Range Interpretation Comments Differential Total Cells Counted (test code = Differkari tial Total Cells Counted) 100 [facility]manNeutrophils % (Manual)2017-07-23 09:43:00 * Test Item Value Reference Range Interpretation Comments Neutrophils % (Manual) (test code = 48460-2) 65 40-74 [facility]manLymphocytes % (Manual)2017-07-23 09:43:00 * Test Item Value Reference Range Interpretation Comments Lymphocytes % (Manual) (test code = 737-7) 24 19-48 [facility]manMonocytes % (Manual)2017-07-23 09:43:00* Test Item Value Reference Range Interpretation Comments Monocytes % (Manual) (test code = 744-3) 7 3.4-9.0 [facility]manEosinophils % (Manual)2017-07-23 09:43:00 * Test Item Value Reference Range Interpretation Comments Eosinophils % (Manual) (test code = 714-6) 4 0-7 [facility]manPlatelet Kproexzq4346-91-44 09:43:00* Test Item Value Reference Range Interpretation Comments Platelet Estimate (test code = 04507-1) ADEQUATE [facility]aufmanPlatelet Morphology Enktuyh8767-06-48 09:43:00* Test Item Value Reference Range Interpretation Comments Platelet Morphology Comment (test code = 23222-4) NORMAL [facility]manHypochromasia2018-05-03 09:43:00* Test Item Value Reference Range Interpretation Comments Hypochromasia (test code = 728-6) SLIGHT [facility]manPoikilocytosis2018-05-03 09:43:00* Test Item Value Reference Range Interpretation Comments Poikilocytosis (test code = 779-9) SLIGHT [facility]manAnisocytosis2018-05-03 09:43:00* Test Item Value Reference Range Interpretation Comments Anisocytosis (test code = 702-1) SLIGHT [facility]manRed Cell Morphology Qgsmblw9229-09-59 09:43:00* Test Item Value Reference Range Interpretation Comments Red Cell Morphology Comment (test code = 6742-1) NORMAL [facility]manWhite Blood Hskds8862-04-81 07:35:00* Test Item Value Reference Range Interpretation Comments White Blood Count (test code = 6690-2) 15.91 4.8-10.8 H [facility]manRed Blood Poxkb2337-14-50 07:35:00* Test Item Value Reference Range Interpretation Comments Red Blood Count (test code = 789-8) 3.46 3.6-5.1 L [facility]manHemoglobin2018-05-03 07:35:00* Test Item Value Reference Range Interpretation Comments Hemoglobin (test code = 35626-3) 9.4 12.0-16.0 L [facility]manHematocrit2018-05-03 07:35:00* Test Item Value Reference Range Interpretation Comments Hematocrit (test code = 4544-3) 29.2 34.2-44.1 L [facility]manMean Corpuscular Shfyze5010-16-55 07:35:00* Test Item Value Reference Range Interpretation Comments Mean Corpuscular Volume (test code = 787-2) 84.4 81-99 [facility]manMean Corpuscular Wvkwsyxibi6284-54-48 07:35:00* Test Item Value Reference Range Interpretation Comments Mean Corpuscular Hemoglobin (test code = 785-6) 27.2 28-32 L [facility]manMean Corpuscular Hemoglobin Concent 2017-07-23 07:35:00* Test Item Value Reference Range Interpretation Comments Mean Corpuscular Hemoglobin Concent (test code = 786-4) 32.2 31-35 [facility]manRed Cell Distribution Vdafv6977-17-18 07:35:00* Test Item Value Reference Range Interpretation Comments Red Cell Distribution Width (test code = 17681-7) 15.2 11.7 -14.4 H [facility]aufmanPlatelet Kqphn6653-16-01 07:35:00* Test Item Value Reference Range Interpretation Comments Platelet Count (test code = 777-3) 469 140-360 H [facility]manNeutrophils (%) (Auto)2017-07-23 07:35:00 * Test Item Value Reference Range Interpretation Comments Neutrophils (%) (Auto) (test code = 89083-6) 65.2 38.7-80.0 [facility]manLymphocytes (%) (Auto)2017-07-23 07:35:00 * Test Item Value Reference Range Interpretation Comments Lymphocytes (%) (Auto) (test code = 736-9) 20.5 18.0-39.1 [facility]manMonocytes (%) (Auto)2017-07-23 07:35:00* Test Item Value Reference Range Interpretation Comments Monocytes (%) (Auto) (test code = 5905-5) 9.9 4.4-11.3 [facility]manEosinophils (%) (Auto)2017-07-23 07:35:00 * Test Item Value Reference Range Interpretation Comments Eosinophils (%) (Auto) (test code = 713-8) 2.6 0.0-6.0 [facility]manBasophils (%) (Auto)2017-07-23 07:35:00* Test Item Value Reference Range Interpretation Comments Basophils (%) (Auto) (test code = 706-2) 0.2 0.0-1.0 [facility]manIM GRANULOCYTES %2017-07-23 07:35:00* Test Item Value Reference Range Interpretation Comments IM GRANULOCYTES % (test code = IM GRANULOCYTES %) 1.6 0.0- 1.0 H [facility]manNeutrophils # (Auto)2017-07-23 07:35:00* Test Item Value Reference Range Interpretation Comments Neutrophils # (Auto) (test code = 751-8) 10.4 2.1-6.9 H [facility]manLymphocytes # (Auto)2017-07-23 07:35:00* Test Item Value Reference Range Interpretation Comments Lymphocytes # (Auto) (test code = 16732-6) 3.3 1.0-3.2 H [facility]manMonocytes # (Auto)2017-07-23 07:35:00* Test Item Value Reference Range Interpretation Comments Monocytes # (Auto) (test code = 742-7) 1.6 0.2-0.8 H [facility]manEosinophils # (Auto)2017-07-23 07:35:00* Test Item Value Reference Range Interpretation Comments Eosinophils # (Auto) (test code = 711-2) 0.4 0.0-0.4 [facility]manBasophils # (Auto)2017-07-23 07:35:00* Test Item Value Reference Range Interpretation Comments Basophils # (Auto) (test code = 704-7) 0.0 0.0-0.1 [facility]manAbsolute Immature Granulocyte (auto 2017-07-23 07:35:00* Test Item Value Reference Range Interpretation Comments Absolute Immature Granulocyte (auto (ortega t code = Absolute Immature Granulocyte (auto) 0.26 0-0.1 H [facility]aufmanMagnesium Cvtkg7517-60-61 07:34:00* Test Item Value Reference Range Interpretation Comments Magnesium Level (test code = 00190-3) 1.6 1.3-2.1 [place] Hospitalodium Buvve9705-81-63 07:28:00* Test Item Value Reference Range Interpretation Comments Sodium Level (test code = 2951-2) 140 136-145 [facility] Esseb8424-23-39 07:28:00* Test Item Value Reference Range Interpretation Comments Potassium Level (test code = 2823-3) 3.9 3.5-5.1 [facility]Chloride Pepus5161-95-28 07:28:00* Test Item Value Reference Range Interpretation Comments Chloride Level (test code = 2075-0) 112 98-107 H [facility]manCarbon Dioxide Nejli3347-12-89 07:28:00* Test Item Value Reference Range Interpretation Comments Carbon Dioxide Level (test code = 2028-9) 19 22-29 L [facility]manAnion Eml4590-81-54 07:28:00* Test Item Value Reference Range Interpretation Comments Anion Gap (test code = 10518-9) 12.9 8-16 [facility]manBlood Urea Hefpkrte8582-83-12 07:28:00* Test Item Value Reference Range Interpretation Comments Blood Urea Nitrogen (test code = 3094-0) 47 7-26 H [facility]manCreatinine2018-05-03 07:28:00* Test Item Value Reference Range Interpretation Comments Creatinine (test code = 2160-0) 2.30 0.57-1.11 H [facility]manBUN/Creatinine Hqjoh4220-12-49 07:28:00* Test Item Value Reference Range Interpretation Comments BUN/Creatinine Ratio (test code = 3097-3) 20 6-25 [facility]manEstimat Glomerular Filtration Rate 2017-07-23 07:28:00* Test Item Value Reference Range Interpretation Comments Estimat Glomerular Filtration Rate (test code = 56293-6) 22 >60 L Ranges were taken from the National Kidney Disease Education Program and the [facility] literature.Reference ranges:60 or greater: Idtxfl84-49 ( for 3 consecutive months): Chronic kidney disease 15 or less: Kidney failureTexas Health KaufmanGlucose Kaddv8255-80-31 07:28:00* Test Item Value Reference Range Interpretation Comments Glucose Level (test code = HHA9321) 118 74-118 [facility]manCalcium Alxba2548-03-93 07:28:00* Test Item Value Reference Range Interpretation Comments Calcium Level (test code = 37275-4) 8.5 8.4-10.2 [facility]manTotal Rpgzaehka9588-38-97 07:28:00* Test Item Value Reference Range Interpretation Comments Total Bilirubin (test code = 1975-2) 0.5 0.2-1.2 [facility]manAspartate Amino Transf (AST/SGOT) 2017-07-23 07:28:00* Test Item Value Reference Range Interpretation Comments Aspartate Amino Transf (AST/SGOT) (test code = Aspartate Amino Transf (AST/SGOT)) 13 5-34 [facility]manAlanine Aminotransferase (ALT/SGPT) 2017-07-23 07:28:00* Test Item Value Reference Range Interpretation Comments Alanine Aminotransferase (ALT/SGPT) (test code = 1742-6) 20 0-55 [facility]manTotal Uychyft0924-97-66 07:28:00* Test Item Value Reference Range Interpretation Comments Total Protein (test code = 2885-2) 5.3 6.5-8.1 L [facility]manAlbumin2018-05-03 07:28:00* Test Item Value Reference Range Interpretation Comments Albumin (test code = 1751-7) 2.5 3.5-5.0 L [facility]manGlobulin2018-05-03 07:28:00* Test Item Value Reference Range Interpretation Comments Globulin (test code = 39612-2) 2.8 2.3-3.5 [facility]manAlbumin/Globulin Gobve4699-66-38 07:28:00 * Test Item Value Reference Range Interpretation Comments Albumin/Globulin Ratio (test code = 1759-0) 0.9 0.8-2.0 [facility]manAlkaline Impnfffrtkx5913-42-35 07:28:00* Test Item Value Reference Range Interpretation Comments Alkaline Phosphatase (test code = 6768-6) 60 40-150 [facility]manB-Type Natriuretic Isklptl9112-50-62 10:39:00* Test Item Value Reference Range Interpretation Comments B-Type Natriuretic Peptide (test code = 69181-5) 63.7 0-100 [facility]manB-Type Natriuretic Zasbwwc1592-54-91 10:39:00* Test Item Value Reference Range Interpretation Comments B-Type Natriuretic Peptide (test code = 29905-8) 63.7 0-100 [facility]manReactive Loooirkhbpc3660-11-12 08:17:00* Test Item Value Reference Range Interpretation Comments Reactive Lymphocytes (test code = 81388-8) 3 [facility] Bprfbdymmhh0711-37-76 08:17:00* Test Item Value Reference Range Interpretation Comments Reactive Lymphocytes (test code = 21960-7) 3 [facility]manCreatine Kinase TM9133-66-09 00:53:00* Test Item Value Reference Range Interpretation Comments Creatine Kinase MB (test code = 41724-4) 0.80 0-5.0 [facility]manTroponin L8311-07-14 00:53:00* Test Item Value Reference Range Interpretation Comments Troponin I (test code = XAJ9955) 0.065 0-0.300 [facility]manCreatine Kinase MW9639-31-04 00:53:00* Test Item Value Reference Range Interpretation Comments Creatine Kinase MB (test code = 07655-2) 0.80 0-5.0 [facility]manTroponin K7002-92-53 00:53:00* Test Item Value Reference Range Interpretation Comments Troponin I (test code = WJI4020) 0.065 0-0.300 [facility]manCreatine Jjlmut8510-91-12 00:44:00* Test Item Value Reference Range Interpretation Comments Creatine Kinase (test code = 2157-6) 32 29-168 [facility]manCreatine Yaxhtw3958-94-49 00:44:00* Test Item Value Reference Range Interpretation Comments Creatine Kinase (test code = 2157-6) 32 29-168 [facility]manFr Thyroxine Ulnlg2202-97-02 09:42:00* Test Item Value Reference Range Interpretation Comments Free Thyroxine Index (test code = 34248-9) 2.7760 1.4-3.8 [facility]manThyroxine (T4)2017-07-19 09:42:00* Test Item Value Reference Range Interpretation Comments Thyroxine (T4) (test code = 3026-2) 7.35 4.5-10.9 Our current method for Total T4 is not recommended for use as the only marker fo r evaluating patients for thyroid disorders.[facility]manTriiodothyronine (T3) Ccazqi0921-90-20 09:42:00* Test Item Value Reference Range Interpretation Comments Triiodothyronine (T3) Uptake (test code = 3050-2) 37.77 22.5 -37.0 H [facility]manThyroid Stimulating Hormone (TSH) 2017-07-19 09:42:00* Test Item Value Reference Range Interpretation Comments Thyroid Stimulating Hormone (TSH) (test code = 13383-0) 0.158 0.350-4.940 L [facility] Thyroxine Momsp0424-45-91 09:42:00* Test Item Value Reference Range Interpretation Comments Free Thyroxine Index (test code = 91821-9) 2.7760 1.4-3.8 [facility]manThyroxine (T4)2017-07-19 09:42:00* Test Item Value Reference Range Interpretation Comments Thyroxine (T4) (test code = 3026-2) 7.35 4.5-10.9 Our current method for Total T4 is not recommended for use as the only marker fo r evaluating patients for thyroid disorders.[facility]manTriiodothyronine (T3) Nomrsp4196-66-18 09:42:00* Test Item Value Reference Range Interpretation Comments Triiodothyronine (T3) Uptake (test code = 3050-2) 37.77 22.5 -37.0 H [facility]manThyroid Stimulating Hormone (TSH) 2017-07-19 09:42:00* Test Item Value Reference Range Interpretation Comments Thyroid Stimulating Hormone (TSH) (test code = 22818-7) 0.158 0.350-4.940 L [facility]manLactic Acid Sohnc7639-60-75 09:17:00* Test Item Value Reference Range Interpretation Comments Lactic Acid Level (test code = Lactic Acid Level) 8.8 4.5- 19.8 [facility]manProthrombin Oycf9082-64-92 19:34:00* Test Item Value Reference Range Interpretation Comments Prothrombin Time (test code = 5902-2) 13.0 11.9-14.5 [facility]manProthromb Time International Ratio 2017-07-18 19:34:00* Test Item Value Reference Range Interpretation Comments Prothromb Time International Ratio (test code = 6301-6) 1.06 Oral Anticoagulant Therapy INR Values:1. Low Intensity Therapy 1.5 - 2.02 . Moderate Intensity Therapy 2.0 - 3.03. High Intensity Therapy(1) 2.5 - 3. 54. High Intensity Therapy(2) 3.0 - 4.05. Panic Value INR > 5.0 [facility]manActivated Partial Thromboplast Time 2017-07-18 19:34:00* Test Item Value Reference Range Interpretation Comments Activated Partial Thromboplast Time (test code = 17310-6) 21.6 23.8-35.5 L [facility]manActivated Partial Thromboplast Time 2017-07-18 19:34:00* Test Item Value Reference Range Interpretation Comments Activated Partial Thromboplast Time (test code = 40284-0) 21.6 23.8-35.5 [facility] Ensjm5525-48-49 07:27:00* Test Item Value Reference Range Interpretation Comments Sodium Level (test code = 2951-2) 136 136-145 [facility]manPotassium Tntlx5801-25-61 07:27:00* Test Item Value Reference Range Interpretation Comments Potassium Level (test code = 2823-3) 3.6 3.5-5.1 [facility]manChloride Gqzgs6632-06-54 07:27:00* Test Item Value Reference Range Interpretation Comments Chloride Level (test code = 2075-0) 99 98-107 [facility]manCarbon Dioxide Bieih5451-72-18 07:27:00* Test Item Value Reference Range Interpretation Comments Carbon Dioxide Level (test code = 8-9) 25 - [facility]manAnion Zvy3827-14-74 07:27:00* Test Item Value Reference Range Interpretation Comments Anion Gap (test code = 43810-4) 15.6 8-16 [facility]manBlood Urea Frmrtaze5935-08-20 07:27:00* Test Item Value Reference Range Interpretation Comments Blood Urea Nitrogen (test code = 3094-0) 60 7-26 H [facility]manCreatinine2018-04-26 07:27:00* Test Item Value Reference Range Interpretation Comments Creatinine (test code = 2160-0) 2.72 0.57-1.11 H [facility]manBUN/Creatinine Gxifk7263-67-41 07:27:00* Test Item Value Reference Range Interpretation Comments BUN/Creatinine Ratio (test code = 3097-3) 22 6- [facility]manEstimat Glomerular Filtration Rate 2017-07-16 07:27:00* Test Item Value Reference Range Interpretation Comments Estimat Glomerular Filtration Rate (test code = 05585-2) 18 >60 L Ranges were taken from the National Kidney Disease Education Program and the [facility] literature.Reference ranges:60 or greater: Hyqgmh51-56 ( for 3 consecutive months): Chronic kidney disease 15 or less: Kidney failureTexas Health KaufmanGlucose Niaii9439-58-21 07:27:00* Test Item Value Reference Range Interpretation Comments Glucose Level (test code = MTN0153) 219 74-118 H [facility]manCalcium Lrfjl6828-86-24 07:27:00* Test Item Value Reference Range Interpretation Comments Calcium Level (test code = 22392-4) 9.3 8.4-10.2 [facility]manTotal Tovfpkbzu7991-02-32 07:27:00* Test Item Value Reference Range Interpretation Comments Total Bilirubin (test code = 1975-2) 0.4 0.2-1.2 [facility]manAspartate Amino Transf (AST/SGOT) 2017-07-16 07:27:00* Test Item Value Reference Range Interpretation Comments Aspartate Amino Transf (AST/SGOT) (test code = Aspartate Amino Transf (AST/SGOT)) 10 5-34 [facility]manAlanine Aminotransferase (ALT/SGPT) 2017-07-16 07:27:00* Test Item Value Reference Range Interpretation Comments Alanine Aminotransferase (ALT/SGPT) (test code = 1742-6) 14 0-55 [facility]manTotal Xjvanht9124-20-89 07:27:00* Test Item Value Reference Range Interpretation Comments Total Protein (test code = 2885-2) 6.6 6.5-8.1 [facility]manAlbumin2018-04-26 07:27:00* Test Item Value Reference Range Interpretation Comments Albumin (test code = 1751-7) 2.8 3.5-5.0 L [facility]manGlobulin2018-04-26 07:27:00* Test Item Value Reference Range Interpretation Comments Globulin (test code = 03798-4) 3.8 2.3-3.5 H [facility]manAlbumin/Globulin Gdqir6628-72-77 07:27:00 * Test Item Value Reference Range Interpretation Comments Albumin/Globulin Ratio (test code = 1759-0) 0.7 0.8-2.0 L [facility]manAlkaline Osmcmkkdfpz4964-64-91 07:27:00* Test Item Value Reference Range Interpretation Comments Alkaline Phosphatase (test code = 6768-6) 71 40-150 [facility]manMagnesium Jdgta9198-90-73 07:10:00* Test Item Value Reference Range Interpretation Comments Magnesium Level (test code = 45892-4) 1.6 1.3-2.1 [facility]manWhite Blood Mybvl4128-27-97 07:00:00* Test Item Value Reference Range Interpretation Comments White Blood Count (test code = 6690-2) 15.90 4.8-10.8 H [facility]manRed Blood Jvpmy5749-38-54 07:00:00* Test Item Value Reference Range Interpretation Comments Red Blood Count (test code = 789-8) 4.06 3.6-5.1 [facility]manHemoglobin2018-04-26 07:00:00* Test Item Value Reference Range Interpretation Comments Hemoglobin (test code = 89504-7) 10.9 12.0-16.0 L [facility]manHematocrit2018-04-26 07:00:00* Test Item Value Reference Range Interpretation Comments Hematocrit (test code = 4544-3) 32.8 34.2-44.1 L [facility]manMean Corpuscular Fdnely2744-23-18 07:00:00* Test Item Value Reference Range Interpretation Comments Mean Corpuscular Volume (test code = 787-2) 80.8 81-99 L [facility]manMean Corpuscular Onupkaesip3708-69-69 07:00:00* Test Item Value Reference Range Interpretation Comments Mean Corpuscular Hemoglobin (test code = 785-6) 26.8 28-32 L [facility]manMean Corpuscular Hemoglobin Concent 2017-07-16 07:00:00* Test Item Value Reference Range Interpretation Comments Mean Corpuscular Hemoglobin Concent (test code = 786-4) 33.2 31-35 [facility]manRed Cell Distribution Jqwds2581-43-21 07:00:00* Test Item Value Reference Range Interpretation Comments Red Cell Distribution Width (test code = 40085-6) 14.2 11.7 -14.4 [facility]manPlatelet Shudj6646-76-79 07:00:00* Test Item Value Reference Range Interpretation Comments Platelet Count (test code = 777-3) 574 140-360 H [facility]manNeutrophils (%) (Auto)2017-07-16 07:00:00 * Test Item Value Reference Range Interpretation Comments Neutrophils (%) (Auto) (test code = 52265-1) 88.6 38.7-80.0 H [facility]manLymphocytes (%) (Auto)2017-07-16 07:00:00 * Test Item Value Reference Range Interpretation Comments Lymphocytes (%) (Auto) (test code = 736-9) 8.2 18.0-39.1 L [facility]manMonocytes (%) (Auto)2017-07-16 07:00:00* Test Item Value Reference Range Interpretation Comments Monocytes (%) (Auto) (test code = 5905-5) 2.5 4.4-11.3 L [facility]manEosinophils (%) (Auto)2017-07-16 07:00:00 * Test Item Value Reference Range Interpretation Comments Eosinophils (%) (Auto) (test code = 713-8) 0.0 0.0-6.0 [facility]manBasophils (%) (Auto)2017-07-16 07:00:00* Test Item Value Reference Range Interpretation Comments Basophils (%) (Auto) (test code = 706-2) 0.1 0.0-1.0 [facility]manIM GRANULOCYTES %2017-07-16 07:00:00* Test Item Value Reference Range Interpretation Comments IM GRANULOCYTES % (test code = IM GRANULOCYTES %) 0.6 0.0- 1.0 [facility]manNeutrophils # (Auto)2017-07-16 07:00:00* Test Item Value Reference Range Interpretation Comments Neutrophils # (Auto) (test code = 751-8) 14.1 2.1-6.9 H [facility]manLymphocytes # (Auto)2017-07-16 07:00:00* Test Item Value Reference Range Interpretation Comments Lymphocytes # (Auto) (test code = 35184-4) 1.3 1.0-3.2 [facility]manMonocytes # (Auto)2017-07-16 07:00:00* Test Item Value Reference Range Interpretation Comments Monocytes # (Auto) (test code = 742-7) 0.4 0.2-0.8 [facility]manEosinophils # (Auto)2017-07-16 07:00:00* Test Item Value Reference Range Interpretation Comments Eosinophils # (Auto) (test code = 711-2) 0.0 0.0-0.4 [facility]manBasophils # (Auto)2017-07-16 07:00:00* Test Item Value Reference Range Interpretation Comments Basophils # (Auto) (test code = 704-7) 0.0 0.0-0.1 [facility]manAbsolute Immature Granulocyte (auto 2017-07-16 07:00:00* Test Item Value Reference Range Interpretation Comments Absolute Immature Granulocyte (auto (ortega t code = Absolute Immature Granulocyte (auto) 0.09 0-0.1 [facility]manB-Type Natriuretic Hxgpbyz4722-03-44 10:31:00* Test Item Value Reference Range Interpretation Comments B-Type Natriuretic Peptide (test code = 19517-9) 91.0 0-100 [facility]manBlood Xkimgmy5695-64-16 16:57:00* Test Item Value Reference Range Interpretation Comments Blood Culture (test code = 94401112) NO GROWTH AFTER 5 DAYS, FINAL REPORT [facility]manCreatine Kinase FL9088-44-73 08:00:00* Test Item Value Reference Range Interpretation Comments Creatine Kinase MB (test code = 42632-9) 0.30 0-5.0 [facility]manTroponin Q0428-42-37 08:00:00* Test Item Value Reference Range Interpretation Comments Troponin I (test code = CXJ3909) 0.011 0-0.300 [facility]manCreatine Ywghux6346-46-48 07:31:00* Test Item Value Reference Range Interpretation Comments Creatine Kinase (test code = 2157-6) 29 29-168 [facility] Sjjffhf3119-50-30 21:32:00* Test Item Value Reference Range Interpretation Comments Bedside Glucose (test code = 25931-4) 82 70-120 Meter ID: [id number] [facility] Glucose 2016-12-23 21:32:00* Test Item Value Reference Range Interpretation Comments Bedside Glucose (test code = 93335-1) 82 70-120 Meter ID: [id number] Health KaufmanBedside Glucose 2016-12-23 21:32:00* Test Item Value Reference Range Interpretation Comments Bedside Glucose (test code = 26352-5) 82 70-120 Meter ID: [id number] Health KaufmanCreatine Kinase MB 2016-12-22 15:42:00* Test Item Value Reference Range Interpretation Comments Creatine Kinase MB (test code = 10486-2) 0.50 0.00-5.00 [facility]manTroponin W4605-52-65 15:42:00* Test Item Value Reference Range Interpretation Comments Troponin I (test code = GTD6521) 0.010 0-0.300 [facility] Ennvi7618-70-64 15:34:00* Test Item Value Reference Range Interpretation Comments Sodium Level (test code = 2951-2) 138 136-145 [facility]manPotassium Ssaxx0858-86-82 15:34:00* Test Item Value Reference Range Interpretation Comments Potassium Level (test code = 2823-3) 3.9 3.5-5.1 [facility]manChloride Kehou5146-11-69 15:34:00* Test Item Value Reference Range Interpretation Comments Chloride Level (test code = 2075-0) 104 98-107 [facility]manCarbon Dioxide Ggbok7588-09-80 15:34:00* Test Item Value Reference Range Interpretation Comments Carbon Dioxide Level (test code = 2028-9) 25 22-29 [facility]manAnion Czt8028-49-80 15:34:00* Test Item Value Reference Range Interpretation Comments Anion Gap (test code = 29213-7) 12.9 8-16 [facility]manBlood Urea Knejdnru6355-30-06 15:34:00* Test Item Value Reference Range Interpretation Comments Blood Urea Nitrogen (test code = 3094-0) 34 7-26 H [facility]manCreatinine2017-10-02 15:34:00* Test Item Value Reference Range Interpretation Comments Creatinine (test code = 2160-0) 2.03 0.57-1.11 H [facility]manBUN/Creatinine Pxdff7930-11-17 15:34:00* Test Item Value Reference Range Interpretation Comments BUN/Creatinine Ratio (test code = 3097-3) 17 6-25 [facility]aufmanEstimat Glomerular Filtration Rate 2016-12-22 15:34:00* Test Item Value Reference Range Interpretation Comments Estimat Glomerular Filtration Rate (test code = 43402-8) 25 >60 L Ranges were taken from the National Kidney Disease Education Program and the [facility] Kidney Foundation literature.Reference ranges:60 or greater: Wpbato77-95 ( for 3 consecutive months): Chronic kidney disease 15 or less: Kidney failureCHI Laredo Medical CenterGlucose Anpxd5665-60-72 15:34:00* Test Item Value Reference Range Interpretation Comments Glucose Level (test code = VWF9644) 116 74-118 [facility]manCalcium Xkkxr6397-30-08 15:34:00* Test Item Value Reference Range Interpretation Comments Calcium Level (test code = 76106-0) 9.3 8.4-10.2 [facility]manTotal Sjqgkivvw1315-94-93 15:34:00* Test Item Value Reference Range Interpretation Comments Total Bilirubin (test code = 1975-2) 0.3 0.2-1.2 [facility]aufmanAspartate Amino Transf (AST/SGOT) 2016-12-22 15:34:00* Test Item Value Reference Range Interpretation Comments Aspartate Amino Transf (AST/SGOT) (test code = Aspartate Amino Transf (AST/SGOT)) 19 5-34 [facility]aufmanAlanine Aminotransferase (ALT/SGPT) 2016-12-22 15:34:00* Test Item Value Reference Range Interpretation Comments Alanine Aminotransferase (ALT/SGPT) (test code = 1742-6) 21 0-55 [facility]manTotal Iwrxexr9566-24-96 15:34:00* Test Item Value Reference Range Interpretation Comments Total Protein (test code = 2885-2) 7.4 6.5-8.1 [facility]manAlbumin2017-10-02 15:34:00* Test Item Value Reference Range Interpretation Comments Albumin (test code = 1751-7) 3.1 3.5-5.0 L [facility]manGlobulin2017-10-02 15:34:00* Test Item Value Reference Range Interpretation Comments Globulin (test code = 76588-6) 4.3 2.3-3.5 H [facility]aufmanAlbumin/Globulin Fyxjr7837-86-34 15:34:00 * Test Item Value Reference Range Interpretation Comments Albumin/Globulin Ratio (test code = 1759-0) 0.7 0.8-2.0 L [facility]manAlkaline Uoejvttymzo5915-68-81 15:34:00* Test Item Value Reference Range Interpretation Comments Alkaline Phosphatase (test code = 6768-6) 101 40-150 [facility]manCreatine Nzyknr2971-78-52 15:34:00* Test Item Value Reference Range Interpretation Comments Creatine Kinase (test code = 2157-6) 33 29-168 [facility]manProthrombin Ksgu8115-55-64 15:23:00* Test Item Value Reference Range Interpretation Comments Prothrombin Time (test code = 5902-2) 12.7 11.9-14.5 [facility]manProthromb Time International Ratio 2016-12-22 15:23:00* Test Item Value Reference Range Interpretation Comments Prothromb Time International Ratio (test code = 6301-6) 0.91 Oral Anticoagulant Therapy INR Values:1. Low Intensity Therapy 1.5 - 2.02 . Moderate Intensity Therapy 2.0 - 3.03. High Intensity Therapy(1) 2.5 - 3. 54. High Intensity Therapy(2) 3.0 - 4.05. Panic Value INR > 5.0 [facility]aufmanActivated Partial Thromboplast Time 2016-12-22 15:23:00* Test Item Value Reference Range Interpretation Comments Activated Partial Thromboplast Time (test code = 35725-4) 45.2 23.8-35.5 H [facility]aufmanProthrombin Wkqc8236-17-49 15:23:00* Test Item Value Reference Range Interpretation Comments Prothrombin Time (test code = 5902-2) 12.7 11.9-14.5 [facility]aufmanProthromb Time International Ratio 2016-12-22 15:23:00* Test Item Value Reference Range Interpretation Comments Prothromb Time International Ratio (test code = 6301-6) 0.91 Oral Anticoagulant Therapy INR Values:1. Low Intensity Therapy 1.5 - 2.02 . Moderate Intensity Therapy 2.0 - 3.03. High Intensity Therapy(1) 2.5 - 3. 54. High Intensity Therapy(2) 3.0 - 4.05. Panic Value INR > 5.0 [facility]manActivated Partial Thromboplast Time 2016-12-22 15:23:00* Test Item Value Reference Range Interpretation Comments Activated Partial Thromboplast Time (test code = 04421-3) 45.2 23.8-35.5 H [facility]aufmanUrine KMK0538-11-99 15:21:00* Test Item Value Reference Range Interpretation Comments Urine WBC (test code = 5821-4) 6-10 0-5 H [facility]aufmanUrine CYU6382-36-13 15:21:00* Test Item Value Reference Range Interpretation Comments Urine RBC (test code = 07576-3) 6-10 0-5 H [facility]manUrine Fuoawqvf9518-03-78 15:21:00* Test Item Value Reference Range Interpretation Comments Urine Bacteria (test code = 58708-8) MODERATE NONE H [facility]manUrine Epithelial Glszl9596-89-21 15:21:00 * Test Item Value Reference Range Interpretation Comments Urine Epithelial Cells (test code = 10325-1) MANY NONE [facility]manUrine Transitional Epithelial Cells 2016-12-22 15:21:00* Test Item Value Reference Range Interpretation Comments Urine Transitional Epithelial Cells (test code = 8249-5) FEW NONE H [facility]manUrine Renal Epithelial Cnkmo1215-70-84 15:21:00* Test Item Value Reference Range Interpretation Comments Urine Renal Epithelial Cells (test code = 68421-3) FEW NON E H [facility]aufmanUrine Hyaline Bisjw5935-29-31 15:21:00* Test Item Value Reference Range Interpretation Comments Urine Hyaline Casts (test code = 61583-6) 0-1 0-1 [facility]manUrine NQX5645-36-55 15:21:00* Test Item Value Reference Range Interpretation Comments Urine WBC (test code = 5821-4) 6-10 0-5 H [facility] VGG7997-09-77 15:21:00* Test Item Value Reference Range Interpretation Comments Urine RBC (test code = 78429-1) 6-10 0-5 H [facility]manUrine Qgtldhlo7200-87-42 15:21:00* Test Item Value Reference Range Interpretation Comments Urine Bacteria (test code = 72293-1) MODERATE NONE H [facility] Epithelial Hzruh4605-98-85 15:21:00 * Test Item Value Reference Range Interpretation Comments Urine Epithelial Cells (test code = 46905-3) MANY NONE [facility] Transitional Epithelial Cells 2016-12-22 15:21:00* Test Item Value Reference Range Interpretation Comments Urine Transitional Epithelial Cells (test code = 8249-5) FEW NONE [facility] Ren[facility] Epithelial Umlgw8092-21-42 15:21:00* Test Item Value Reference Range Interpretation Comments Urine Renal Epithelial Cells (test code = 98918-8) FEW NON E [facility] Hyaline Gimmk7850-87-61 15:21:00* Test Item Value Reference Range Interpretation Comments Urine Hyaline Casts (test code = 14844-3) 0-1 0-1 [facility] KFO3393-61-61 15:21:00* Test Item Value Reference Range Interpretation Comments Urine WBC (test code = 5821-4) 6-10 0-5 [facility] UCE0517-23-85 15:21:00* Test Item Value Reference Range Interpretation Comments Urine RBC (test code = 67329-8) 6-10 0-5 H [facility] Ouhewowq2296-78-69 15:21:00* Test Item Value Reference Range Interpretation Comments Urine Bacteria (test code = 61892-8) MODERATE NONE [facility] Epithelial Tzquc3873-66-35 15:21:00 * Test Item Value Reference Range Interpretation Comments Urine Epithelial Cells (test code = 55744-7) MANY NONE [facility] Transitional Epithelial Cells 2016-12-22 15:21:00* Test Item Value Reference Range Interpretation Comments Urine Transitional Epithelial Cells (test code = 8249-5) FEW NONE [facility] Renal Epithelial Nmpbd9960-96-21 15:21:00* Test Item Value Reference Range Interpretation Comments Urine Renal Epithelial Cells (test code = 87813-7) FEW NON E [facility] Hyaline Yyswf2712-73-86 15:21:00* Test Item Value Reference Range Interpretation Comments Urine Hyaline Casts (test code = 23394-7) 0-1 0-1 [facility] Blood Ddljt4726-20-62 15:14:00* Test Item Value Reference Range Interpretation Comments White Blood Count (test code = 6690-2) 13.82 4.8-10.8 [facility] Blood Cscce5153-07-64 15:14:00* Test Item Value Reference Range Interpretation Comments Red Blood Count (test code = 789-8) 4.16 3.6-5.1 [facility]2017-10-02 15:14:00* Test Item Value Reference Range Interpretation Comments Hemoglobin (test code = 20569-8) 11.0 12.0-16.0 L [facility]ematocrit2017-10-02 15:14:00* Test Item Value Reference Range Interpretation Comments Hematocrit (test code = 4544-3) 34.8 34.2-44.1 [facility] Corpuscular Cymdda8933-14-33 15:14:00* Test Item Value Reference Range Interpretation Comments Mean Corpuscular Volume (test code = 787-2) 83.7 81-99 [facility] Corpuscular Gudpnzxdty9032-18-62 15:14:00* Test Item Value Reference Range Interpretation Comments Mean Corpuscular Hemoglobin (test code = 785-6) 26.4 28-32 [facility] Corpuscular Hemoglobin Concent 2016-12-22 15:14:00* Test Item Value Reference Range Interpretation Comments Mean Corpuscular Hemoglobin Concent (test code = 786-4) 31.6 31-35 [facility] Cell Distribution Jhnku8935-38-35 15:14:00* Test Item Value Reference Range Interpretation Comments Red Cell Distribution Width (test code = 76864-5) 16.4 11.7 -14.4 [facility]manPlatelet Kdeed3064-41-70 15:14:00* Test Item Value Reference Range Interpretation Comments Platelet Count (test code = 777-3) 497 140-360 [facility]Neutrophils (%) (Auto)2016-12-22 15:14:00 * Test Item Value Reference Range Interpretation Comments Neutrophils (%) (Auto) (test code = 83762-6) 59.3 38.7-80.0 [facility]Lymphocytes (%) (Auto)2016-12-22 15:14:00 * Test Item Value Reference Range Interpretation Comments Lymphocytes (%) (Auto) (test code = 736-9) 30.1 18.0-39.1 [facility] (%) (Auto)2016-12-22 15:14:00* Test Item Value Reference Range Interpretation Comments Monocytes (%) (Auto) (test code = 5905-5) 7.8 4.4-11.3 [facility] (%) (Auto)2016-12-22 15:14:00 * Test Item Value Reference Range Interpretation Comments Eosinophils (%) (Auto) (test code = 713-8) 1.7 0.0-6.0 [facility] (%) (Auto)2016-12-22 15:14:00* Test Item Value Reference Range Interpretation Comments Basophils (%) (Auto) (test code = 706-2) 0.7 0.0-1.0 [facility]man[facility] GRANULOCYTES %2016-12-22 15:14:00* Test Item Value Reference Range Interpretation Comments IM GRANULOCYTES % (test code = IM GRANULOCYTES %) 0.4 0.0- 1.0 [facility]Neutrophils # (Auto)2016-12-22 15:14:00* Test Item Value Reference Range Interpretation Comments Neutrophils # (Auto) (test code = 751-8) 8.2 2.1-6.9 [facility]manLymphocytes # (Auto)2016-12-22 15:14:00* Test Item Value Reference Range Interpretation Comments Lymphocytes # (Auto) (test code = 77200-6) 4.2 1.0-3.2 [facility] # (Auto)2016-12-22 15:14:00* Test Item Value Reference Range Interpretation Comments Monocytes # (Auto) (test code = 742-7) 1.1 0.2-0.8 [facility]osin[facility] # (Auto)2016-12-22 15:14:00* Test Item Value Reference Range Interpretation Comments Eosinophils # (Auto) (test code = 711-2) 0.2 0.0-0.4 [facility] # (Auto)2016-12-22 15:14:00* Test Item Value Reference Range Interpretation Comments Basophils # (Auto) (test code = 704-7) 0.1 0.0-0.1 [facility]manAbsolute Immature Granulocyte (auto 2016-12-22 15:14:00* Test Item Value Reference Range Interpretation Comments Absolute Immature Granulocyte (auto (ortega t code = Absolute Immature Granulocyte (auto) 0.05 0-0.1 [facility] Ogsdm6614-53-64 15:01:00* Test Item Value Reference Range Interpretation Comments Urine Color (test code = 5778-6) YELLOW YELLOW [facility] Ugodemm9636-43-69 15:01:00* Test Item Value Reference Range Interpretation Comments Urine Clarity (test code = 48653-7) HAZY CLEAR [facility] Specific Oiusazv5255-62-51 15:01:00 * Test Item Value Reference Range Interpretation Comments Urine Specific [place] (test code = 5811-5) 1.015 1.010-1.02 5 [facility] rX8809-74-06 15:01:00* Test Item Value Reference Range Interpretation Comments Urine pH (test code = 15405-3) 5 5-7 [facility] Leukocyte Qvwprdzk9393-61-82 15:01:00* Test Item Value Reference Range Interpretation Comments Urine Leukocyte Esterase (test code = 5799-2) TRACE NEGATIVE H [facility] Mlzwazx0563-35-23 15:01:00* Test Item Value Reference Range Interpretation Comments Urine Nitrite (test code = 38240-7) NEGATIVE NEGATIVE [facility] Oytwuux1472-56-44 15:01:00* Test Item Value Reference Range Interpretation Comments Urine Protein (test code = 5804-0) 3+ NEGATIVE H [facility] Glucose (UA)2016-12-22 15:01:00* Test Item Value Reference Range Interpretation Comments Urine Glucose (UA) (test code = 2349-9) NEGATIVE NEGATIVE [facility] Ohexdee8188-29-79 15:01:00* Test Item Value Reference Range Interpretation Comments Urine Ketones (test code = 52840-3) NEGATIVE NEGATIVE [facility] Urpqhldimmoa3155-67-96 15:01:00* Test Item Value Reference Range Interpretation Comments Urine Urobilinogen (test code = 86653-1) 0.2 0.2-1 [facility] Jlzvcdgfo8548-14-37 15:01:00* Test Item Value Reference Range Interpretation Comments Urine Bilirubin (test code = 1978-6) NEGATIVE NEGATIVE [facility] Djdex2450-33-36 15:01:00* Test Item Value Reference Range Interpretation Comments Urine Blood (test code = 98560-8) TRACE NEGATIVE H [facility] Ihrcx0500-69-37 15:01:00* Test Item Value Reference Range Interpretation Comments Urine Color (test code = 5778-6) YELLOW YELLOW [facility] Zmwkqfq4924-27-85 15:01:00* Test Item Value Reference Range Interpretation Comments Urine Clarity (test code = 88206-2) HAZY CLEAR [facility] Specific Iudrlge1124-13-22 15:01:00 * Test Item Value Reference Range Interpretation Comments Urine Specific [place] (test code = 5811-5) 1.015 1.010-1.02 5 [facility] xL5228-00-88 15:01:00* Test Item Value Reference Range Interpretation Comments Urine pH (test code = 48064-4) 5 5-7 [facility] Leukocyte Ghxxsmyd8930-73-97 15:01:00* Test Item Value Reference Range Interpretation Comments Urine Leukocyte Esterase (test code = 5799-2) TRACE NEGATIVE H [facility] Upvgjbh8889-13-05 15:01:00* Test Item Value Reference Range Interpretation Comments Urine Nitrite (test code = 98381-9) NEGATIVE NEGATIVE [facility] Vawnqjs9690-69-15 15:01:00* Test Item Value Reference Range Interpretation Comments Urine Protein (test code = 5804-0) 3+ NEGATIVE H [facility] Glucose (UA)2016-12-22 15:01:00* Test Item Value Reference Range Interpretation Comments Urine Glucose (UA) (test code = 2349-9) NEGATIVE NEGATIVE [facility] Oeqkefy6968-16-12 15:01:00* Test Item Value Reference Range Interpretation Comments Urine Ketones (test code = 13286-7) NEGATIVE NEGATIVE [facility] Aosrvyysfzfa3879-40-17 15:01:00* Test Item Value Reference Range Interpretation Comments Urine Urobilinogen (test code = 75230-9) 0.2 0.2-1 [facility] Nvrqibpfg0686-62-67 15:01:00* Test Item Value Reference Range Interpretation Comments Urine Bilirubin (test code = 1978-6) NEGATIVE NEGATIVE [facility] Vctfl7445-17-77 15:01:00* Test Item Value Reference Range Interpretation Comments Urine Blood (test code = 58074-2) TRACE NEGATIVE [facility] Akbyn6399-29-60 15:01:00* Test Item Value Reference Range Interpretation Comments Urine Color (test code = 5778-6) YELLOW YELLOW [facility] Wmnyffz1636-73-03 15:01:00* Test Item Value Reference Range Interpretation Comments Urine Clarity (test code = 01547-1) HAZY CLEAR [facility] Specific Psbawat7106-88-41 15:01:00 * Test Item Value Reference Range Interpretation Comments Urine Specific [place] (test code = 5811-5) 1.015 1.010-1.02 5 [facility] nV0286-43-04 15:01:00* Test Item Value Reference Range Interpretation Comments Urine pH (test code = 31470-7) 5 5-7 [facility] Leukocyte Udaeaxnh4377-77-16 15:01:00* Test Item Value Reference Range Interpretation Comments Urine Leukocyte Esterase (test code = 5799-2) TRACE NEGATIVE H [facility] Lpgijyx4200-00-91 15:01:00* Test Item Value Reference Range Interpretation Comments Urine Nitrite (test code = 63633-6) NEGATIVE NEGATIVE [facility] Cbmncge2022-97-30 15:01:00* Test Item Value Reference Range Interpretation Comments Urine Protein (test code = 5804-0) 3+ NEGATIVE [facility] Glucose (UA)2016-12-22 15:01:00* Test Item Value Reference Range Interpretation Comments Urine Glucose (UA) (test code = 2349-9) NEGATIVE NEGATIVE [facility] Lqgfuqu5780-90-09 15:01:00* Test Item Value Reference Range Interpretation Comments Urine Ketones (test code = 72551-6) NEGATIVE NEGATIVE [facility] Mrwrloogtwgb1424-54-80 15:01:00* Test Item Value Reference Range Interpretation Comments Urine Urobilinogen (test code = 07360-3) 0.2 0.2-1 [facility] Hgrzjbxdf9268-81-60 15:01:00* Test Item Value Reference Range Interpretation Comments Urine Bilirubin (test code = 1978-6) NEGATIVE NEGATIVE [facility] Oekyw8184-36-41 15:01:00* Test Item Value Reference Range Interpretation Comments Urine Blood (test code = 74937-2) TRACE NEGATIVE [facility] [address] [address] Patient Name: GABBIE TOBIN MR #: [id number] : 1955 Age/Sex: 61/F Req #: [id number] Adm Physician: KYLEE ACOSTA MD Ordered by: USMAN MARIE, PAPO MARIE Report #: [id number] Location: MED/SURG3 Room/Bed: [facility] Procedure: [id number] CT/C T ABDOMEN WO Exam Date: 07/21/17 Exam Time: 1200 REPORT STATUS: Signed PROCEDURE: CT ABDOMEN WITHOUT CONTRAST COMPARIS ON: [facility], US, US RETROPERITONEAL ( KIDNEY )., 12/11/2015, 11:34. [facility], CT, CT ABDOMEN WO, 05/06/2015, 14:42. NA [...] 07/21/2017 at 12:27 Dictat ed By: ALKA SOFIA MD 1227 COPY TO: PAPO MARY US RENAL RETROPERITONEAL COMP [place] [address] Patient Name: GABBIE TOBIN MR #: [id number] : 1955 Age/Sex: 61/F Req #: [id number] Adm Physician: KYLEE ACOSTA MD Ordered by: PINA RUCKER MD Report #: [id number] Location: MED/SURG3 Room/Bed: [facility] Procedure: [id number] US/U S RENAL RETROPERITONEAL COMP Exam Date: Exam Time: REPORT STATUS: Signed PROCEDURE: US RETROPERITONEAL ( KIDNEY ). COMPARISON: [facility], , US RETROPERITONEAL ( KIDNEY )., 01/15/2016, [...] TO: PINA RUCKER MD CHEST SINGLE (PORTABLE) [place] [address] Patient Name: GABBIE TOBIN MR #: [id number] : 1955 Age/Sex: 61/F Req #: [id number] Adm Physician: Ordered by: IRIS MOREL MD Report #: [id number] Location: ER Room/Bed: Procedure: [id number] DX/CHEST SINGLE (PORTABLE) Exam Date: 07/18/17 Exam [...] 5:16 PM Dictated By: DEMETRIO TAYLOR MD [facility] Signed By: DEMETRIO TAYLOR MD on 07/18/171715 Transcribed By: ALEXIA on 07/18 COPY TO: IRIS MOREL MD CT ABDOMEN/PELVIS WO [place] [address] Patient Name: GABBIE TOBIN MR #: [id number] : Age/Sex: 61/F Req #: [id number] Adm Physician: KYLEE PONCE MD Ordered by: IRIS MOREL MD Report #: [id number] Location: [facility] Room/Bed: [place] [address] Procedure: [id number] CT/CT ABDOMEN/PELVIS WO Exam Date: Exam Time: [...] is below the limits set by the [facility] Protocol Committee (RPC). FINDINGS: LINES: None. Lower [...] TO: IRIS MOREL MD CHEST [facility] (PORTABLE) [place] [address] Patient Name: GABBIE TOBIN MR #: [id number] : 1955 Age/Sex: 61/F Req #: [id number] Adm Physician: KYLEE ACOSTA MD Ordered by: CHU MCALLISTER MD Report #: [id number] Location: [facility]/SURG Room/Bed: [facility] Procedure: [id number] DX/C HEST SINGLE (PORTABLE) Exam Date: 07/15/17 [...] TO: CHU MCALLISTER MD CHEST SINGLE (PORTABLE) [place] [address] Patient Name: GABBIE TOBIN MR #: [id number] : Age/Sex: 61/F Req #: [id number] Adm Physician: KYLEE PONCE MD Ordered by: PINA RUCKER MD Report #: [id number] Location : MED/SURG2 Room/Bed: 200-1 Procedure: [id number] DX/C HEST SINGLE (PORTABLE) Exam Date: 07/11/17 [...] RUCKER MD VQ LUNG SCAN VENT PERFUSION [place] [address] Patient Name: GABBIE TOBIN MR #: [id number] : 1955 Age/Sex: 61/F Req #: [id number] Adm Physician: KYLEE ACOSTA MD Ordered by: KYLEE ACOSTA MD Report #: [id number] Location: MED/SURG2 Room/Bed: 200 Procedure: [id number] NM/VQ LUNG SCAN VENT PERFUSION Exam Date: [...] TO: KYLEE ACOSTA MD MRI BRAIN WO [place] [address] Patient Name: GABBIE TOBIN MR #: [id number] : 1955 Age/Sex: 61/F Req #: [id number] Adm Physician: KYLEE ACOSTA MD Ordered by: KYLEE ACOSTA MD Report #: [id number] Location: MED/SURG Room/Bed: [facility] Procedure: [id number] MRI/M RI BRAIN WO Exam Date: Exam [...] 3:40 PM Dictated By: CAN ANGULO MD 084 Transcri bed By: ALEXIA on 12/23/16 154 COPY TO: KYLEE ACOSTA MD CT BRAIN WO [place] [address] Patient Name: GABBIE TOBIN MR #: [id number] : 1955 Age/Sex: 61/F Req #: [id number] Adm Physician: Ordered by: CAYETANO ORDONEZ MD Report #: [id number] Location: Room/Bed: Procedure: [id number] CT/CT BRAIN WO Exam Date: 05/09 Exam [...] 12/22/2016 3:16 PM Dictated By: AUDREY Craven 6686 Trans cribed By: ALEXIA on 12/22/16 1516 COPY TO: CAYETANO ORDONEZ MD
[2020-01-09 11:52] LABS: BASOPHILS # (AUTO) 0.1 (0.0-0.1); BASOPHILS % 0.9 % (0.0-1.0); EOSINOPHILS # (AUTO) 0.2 (0.0-0.4); EOSINOPHILS % 1.2 % (0.0-6.0); HEMATOCRIT 33.9 % (34.2-44.1); HEMOGLOBIN 11.2 g/dL (12.0-16.0); LYMPHOCYTES # (AUTO) 4.1 (1.0-3.2); LYMPHOCYTES % 25.6 % (18.0-39.1); MEAN CORPUSCULAR HEMOGLOBIN 29.3 pg (28-32); MEAN CORPUSCULAR VOLUME 88.7 fL (81-99); MONOCYTES % 6.4 % (4.4-11.3); NEUTROPHILS # (AUTO) 10.6 (2.1-6.9); NEUTROPHILS % 65.5 % (38.7-80.0); PLATELET COUNT 538 x10e3/uL (140-360); RED BLOOD COUNT 3.82 x10e6/uL (3.6-5.1); RED CELL DISTRIBUTION WIDTH 17.3 % (11.7-14.4)
[2020-01-09 12:09] LABS: INR 0.99; PROTHROMBIN TIME 13.6 seconds (11.9-14.5)
[2020-01-09 12:16] LABS: ALBUMIN/GLOBULIN RATIO 0.8 (0.8-2.0); CALCIUM 9.5 mg/dL (8.4-10.2); CREATININE, SERUM 8.06 mg/dL (0.57-1.11)
[2020-01-09 12:23] LABS: CREATINE KINASE MB 0.9 ng/mL (0-5.0)
--- NOTE | 2020-01-09 12:29 | NUR ---
Pt arrived via EMS with L arm blue/purple in color from tournique from EMS due to AV graft site suddenly starting to bleed when pt was lying in bed. Pts immediatly applied pressure. Upon arrival to room, this RN noted color of arm and cap refill was >[address] Khan notified, per MD instruction: Applied slava of site of bleed, then applied pressure dressing. This RN applied slava to site on L upper inner arm, once previous dressing report circulation started to return to L extremity and started to get pink in color and cap refill was >5. Noted area approximately size of slava missing skin showing tubing of AV graft. Immediate arterial bleeding occurred, once dressing removed, immediately applied slava to site of bleed, 4x4, 2 kerlex rolls and chelsi wrap applied. Pressure applied by this RN for approx 5 minutes. No further bleeding noted and color in L arm red and pink in color cap refill aprox 5 seconds.
[2020-01-09] MEDS ORDERED: FENTANYL CITRATE/PF 100MCG/2 ML INJ ONE (12:43)
[2020-01-09] MEDS ORDERED: PROPOFOL IV EMULSION 10 MG/ML 20 ML VIAL ONE (12:51)
[2020-01-09] MEDS ORDERED: DEXAMETHASONE SOD PHOS INJ 4 MG/ML VIAL ONE (12:51)
[2020-01-09] MEDS ORDERED: ONDANSETRON HCL INJ 2MG/ML 2ML 2 MG/ML VIAL ONE ×2 (12:51→16:34)
[2020-01-09] MEDS ORDERED: EPHEDRINE SULFATE INJ 50 MG/ML VIAL ONE (12:51)
[2020-01-09] MEDS ORDERED: DESFLURANE 240 ML BTL INH ONE (12:51)
[2020-01-09] MEDS ORDERED: LIDOCAINE HCL 2% LOCAL INJ 5 ML SDV VIAL INJ ONE (12:51)
[2020-01-09] MEDS ORDERED: ROCURONIUM BROMIDE 10 MG/ML 5ML VIAL IV ONE (12:51)
[2020-01-09] MEDS ORDERED: NEOSTIGMINE 1 MG/ML 10ML VIAL ONE (12:51)
[2020-01-09] MEDS ORDERED: PHENYLEPHRINE HCL 1% 10 MG/ML VIAL ONE (12:51)
[2020-01-09] MEDS ORDERED: ACETAMINOPHEN 325 MG TAB PO ONE (13:30)
--- NOTE | 2020-01-09 13:45 | NUR ---
This RN started to change pts blood soaked linens from initial bleed of AV graft, pt rolled side to side, noted AV graft dripping blood onto floor. Rolled pt back onto back, immediately applied pressure to AV graft and applied tournique. assisting and occluding the axillary artery. Applied multiple layers of chelsi wrap, coban, gauze, abd pads throughout 45 min period. Hit call bed for assistance to notify other staff members of pts condition. No assistance received after notifying tech x 2 that patient was bleeding profusely from av graft. Pt's arm turned blue/purple and affected extremity was raised above heart. Removed tournique, massaged fingers and capillary refill noted to be approx 5 seconds. Extremity turned pink/red petechiea noted to lower L arm and hand. Pt assisted throughout entire 45 minutes holding pressure with this RN to stop bleeding.
[2020-01-09] MEDS ORDERED: SOD POLYSTYRENE SULFONATE SUSP 15 GM/60 ML BTL PO ONE (14:00)
[2020-01-09] MEDS ORDERED: INSULIN REGULAR, HUMAN 100 UNIT/1 ML 3ML VIAL SQ ONE (14:00)
[2020-01-09] MEDS ORDERED: DEXTROSE 50% SYRINGE 50 ML IV STA (14:00)
[2020-01-09] MEDS ORDERED: SOD POLYSTYRENE SULFONATE SUSP 15 GM/60 ML BTL ONE (14:19)
--- NOTE | 2020-01-09 14:31 | NUR ---
Notified Dena CELESTIN on Med-surg 3 regarding pt unable to take kayexselate at this time d/t nausea. Pt given insuling and d50. Pt being transferred to floor per MD request. Consent on chart.
--- NOTE | 2020-01-09 14:40 | NUR ---
Notified concern for sending pt to unit after just stopping arterial bleeding approx 15-20 prior to transfer to unit.
[2020-01-09] MEDS ORDERED: HEPARIN SOD (PORCINE) 5,000 UNIT/ML VIAL ONE (14:51)
[2020-01-09] MEDS ORDERED: SODIUM CHLORIDE 0.9% 500ML 500 ML ONE ×2 (14:51→15:25)
[2020-01-09] MEDS ORDERED: HEPARIN SOD (PORCINE) 1000 UNIT/ML 30ML ONE (14:54)
[2020-01-09 15:00] VITALS: BP 145/80
--- NOTE | 2020-01-09 15:00 | NUR ---
received patient from the ER, the pt is alert, no s/s of distress. left upper arm is tightly wrapped with gauze/chelsi bandage because of active bleeding at dialysis graft. left arm from the elbow down to fingers is purple with petechiae noted around the wrist. no bleeding is coming through the bandage. pt was dirty and had BM in diaper. pt was cleaned by nurse and tech.
--- NOTE | 2020-01-09 15:15 | NUR ---
Dr. Rivera is on the floor and pt was taken down to OR for surgery on bleeding dialysis graft. consent form was not with other paperwork brought up with patient. called the ER and was told that the nurse is still filling out the consent form. master control technician will go to ER to picker box operator consent form.
[2020-01-09 15:37] VITALS: BP 176/78
[2020-01-09] MEDS ORDERED: SODIUM CHLORIDE 0.9% 1000ML 2,000 ML ONE (15:38)
[2020-01-09] MEDS ORDERED: VANCOMYCIN 1GM/NS 250 ML 250 ML ONE (15:44)
[2020-01-09] MEDS ORDERED: HYDROCODONE/APAP 5MG-325MG TAB PO PRN (16:30)
[2020-01-09] MEDS ORDERED: METOCLOPRAMIDE HCL 10 MG/2ML VIAL ONE (16:38)
--- NOTE | 2020-01-09 17:33 | Operative Report ---
DATE OF PROCEDURE: 01/09/2020 SURGEON: Phoenix Rivera MD PREOPERATIVE DIAGNOSIS: Ruptured left arm AV fistula with active bleeding. POSTOPERATIVE DIAGNOSIS: Ruptured left arm AV fistula with active bleeding secondary to ruptured left arm AV fistula aneurysm. 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 BOILING HOUSE OILER: None. ANESTHESIA: General. INDICATIONS AND FINDINGS: The patient is a 64-year-old female with end-stage renal disease, who developed active bleeding from her left arm AV fistula earlier this morning. 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 TECHNIQUE: After adequate general endotracheal anesthesia, the patient in supine position, the left arm was prepped and draped in a sterile fashion with ChloraPrep solution. There was active bleeding from the left arm AV fistula. Pressure was held over the area of bleeding. Incision was made on the arterial inflow side, where the bleeding was carried down through subcutaneous tissue and the arterial inflow side of the fistula from where the bleeding was, was dissected free and controlled the vessel loop and then clamped and the bleeding was controlled. There was some backbleeding from the vein. Once again, pressure was held all over this area. An incision made just beyond the area of bleeding and there was found to be an aneurysm of the AV fistula. Pressure was held over the venous side and hemostasis achieved while the aneurysm was dissected free. The inflow vein was not aneurysmal, but there was about a 2 cm segment of the vein that was aneurysmal. This was completely dissected free. The aneurysmal portion of the vein was then excised and after this was done, the vein was then closed with running suture of 5-0 Prolene. There were couple other areas which were bleeding, which was controlled with vciysv-hk-gvqsg sutures of 5-0 Prolene and hemostasis was achieved. There was a good thrill over the fistula once flow was restored and no bleeding. Hemostasis on the wounds achieved with electrocautery. Wound was irrigated with saline, inspected for hemostasis, which was seen to be adequate. The wound was then closed with 3-0 Vicryl, subcutaneous tissue and ian for the skin. Sterile dressing was applied. The patient tolerated the procedure well. Estimated blood loss was 125 mL. There were no complications. All counts were correct and the patient was taken to the recovery room in satisfactory condition. Phoenix W MD EDI Rivera/ZOE /[id number] cc: MD Sulema Michael MD
--- NOTE | 2020-01-09 19:30 | NUR ---
Report received from day shift RN. Pt alert, awake, and oriented x 3. No complaints of pain or discomfort. Bandage to left upper extremity clean, dry, and intact. No bleeding or swelling noted. Hemodialysis initiated to left subclavian dialysis catheter prior to my arrival. Pt tolerating well. at bedside. states he will call son to verify home medications and supply a list after he spoke with his son. No needs at this time. Call light within reach. and dialysis nurse at bedside.
[2020-01-09 20:00] VITALS: BP 123/65
[2020-01-09 21:00] VITALS: BP 123/123
[2020-01-09] MEDS ORDERED: CYMBALTA30 MG PO (21:43)
[2020-01-09] MEDS ORDERED: ELIQUIS5 MG PO (21:43)
[2020-01-09] MEDS ORDERED: METOPROLOL SUCC25 MG PO (21:43)
[2020-01-09] MEDS ORDERED: ZYRTEC10 M3 PO (21:43)
[2020-01-09] MEDS ORDERED: PROTONIX20 MG PO (21:43)
[2020-01-09] MEDS ORDERED: PROBIOTIC & AC1 EACH PO (21:43)
[2020-01-09] MEDS ORDERED: AMIODARONE HCL200 MG PO (21:43)
[2020-01-09] MEDS ORDERED: CALCIUM ACETAT667 MG PO (21:43)
[2020-01-09] MEDS ORDERED: ZETIA10 MG PO (21:43)
[2020-01-09] MEDS ORDERED: MIDODRINE HCL5 MG PO ×2 (21:49)
[2020-01-09] MEDS ORDERED: HEPARIN SOD (PORCINE) 1000 UNIT/ML SDV IV PRN (22:00)
--- NOTE | 2020-01-09 22:17 | NUR ---
Pt's blood pressure currently 89/60. states pt takes Midodrine daily, but did not have a dose today. Pt denies any dizziness or discomfort. Dr. Peters, promotion producer physician paged. Awaiting call back.
--- NOTE | 2020-01-09 22:50 | NUR ---
Dialysis complete. 1.5 L removed per dialysis nurse. Blood pressure currently 85/47. Pt denies discomfort at this time. Second page made to sculpture conservator physician. Awaiting call back.
[2020-01-10] VITALS: BP 88/48
--- NOTE | 2020-01-10 00:05 | NUR ---
Spoke to Dr. Torres via phone. New orders received to resume Midodrine and place pt on telemetry with continuous pulse ox.
[2020-01-10] MEDS ORDERED: MIDODRINE HCL 5 MG TABLET PO SCH ×6 (00:07→17:00)
[2020-01-10 04:00] VITALS: BP 121/54
[2020-01-10] MEDS ORDERED: NITROGLYCERIN 0.4 MG SUBL SL PRN (04:00)
[2020-01-10] MEDS ORDERED: HYDROXYZINE HCL 25 MG TAB PO PRN (04:00)
[2020-01-10 06:02] LABS: BASOPHILS # (AUTO) 0.1 (0.0-0.1); BASOPHILS % 0.4 % (0.0-1.0); EOSINOPHILS % 0.1 % (0.0-6.0); HEMATOCRIT 29.4 % (34.2-44.1); HEMOGLOBIN 9.6 g/dL (12.0-16.0); LYMPHOCYTES # (AUTO) 3.6 (1.0-3.2); LYMPHOCYTES % 26.1 % (18.0-39.1); MEAN CORPUSCULAR HEMOGLOBIN 29.1 pg (28-32); MEAN CORPUSCULAR HGB CONC 32.7 g/dL (31-35); MEAN CORPUSCULAR VOLUME 89.1 fL (81-99); MONOCYTES # (AUTO) 0.8 (0.2-0.8); MONOCYTES % 5.6 % (4.4-11.3); NEUTROPHILS # (AUTO) 9.3 (2.1-6.9); NEUTROPHILS % 67.4 % (38.7-80.0); PLATELET COUNT 487 x10e3/uL (140-360); RED CELL DISTRIBUTION WIDTH 17.2 % (11.7-14.4)
--- NOTE | 2020-01-10 06:11 | Discharge Summary ---
DISCHARGE DIAGNOSES: 1. Status post left arm AV fistula repair. 2. Orthostatic hypotension. 3. End-stage renal disease. 4. Anemia. 5. Leukocytosis. 6. Diabetes. HISTORY OF PRESENT ILLNESS AND HOSPITAL COURSE: The patient is a lady, who presented after dialysis where she was had a left arm fistula rupture with some bleeding, who presents to the emergency room and unfortunately they were not able to get the bleeding to stop, so she was taken to the OR by Dr. Rivera, who revised the fistula and fix the wound and aneurysm and postoperatively in the ICU. She had trouble with maintaining a reasonable blood pressure, where her systolics were mostly in the 70s and 80s that required some Martin-Synephrine to maintain well, but unfortunately the patient has a severe history of orthostatic hypotension, so this is unusual for her low blood pressures and she was asymptomatic with these low blood pressure, so she was observed overnight with no new issues, and the following morning, the patient's blood pressures were in the 90s to 100, which is her baseline. She really wanted to go home. So, per her wishes, the patient was then discharged home to continue with her p.o. Levgodwin and to follow up with me in 1 to 2 weeks, Dr. Rivera in 1 to two weeks. Please see hospital chart for full details. MD RITA Michael/ZOE /[id number]
[2020-01-10 06:34] LABS: ALBUMIN 2.8 g/dL (3.5-5.0); ALBUMIN/GLOBULIN RATIO 0.8 (0.8-2.0); ANION GAP 17.1 mmol/L (8-16); CALCIUM 8.6 mg/dL (8.4-10.2); CREATININE, SERUM 4.46 mg/dL (0.57-1.11); POTASSIUM 5.1 mmol/L (3.5-5.1)
--- NOTE | 2020-01-10 07:11 | Consultation ---
DATE OF CONSULTATION: 01/09/2020 HISTORY OF PRESENT ILLNESS: The patient is a 64-year-old female with multiple medical problems while admitting, end-stage renal disease, who came to the emergency room as she developed bleeding from her left arm AV fistula at her home. In the emergency room, pressure was held, but she had a large opening in the fistula and could not be controlled with pressure and it was thought she will need surgery to repair the fistula. PAST MEDICAL HISTORY: Significant for multiple medical problems listed in the chart; end-stage renal disease, diabetes, COPD, hypercholesterolemia, arthritis, previous pneumonia, history of renal cell cancer. PAST SURGICAL HISTORY: She has had multiple surgeries. MEDICATIONS: She is on multiple medications, all of which are listed in the chart. ALLERGIES: SHE HAS MULTIPLE ALLERGIES, ALL OF WHICH ARE LISTED IN THE CHART. FAMILY HISTORY: Noncontributory. SOCIAL HISTORY: The patient is . Does not smoke cigarettes or drink alcohol. REVIEW OF SYSTEMS: Significant for recent bleeding. She has no other symptoms. PHYSICAL EXAMINATION: GENERAL: The patient is awake and alert. Significant findings; left arm, there is a pressure dressing in place with cyanosis of the left hand. At this point, there is no bruit heard over the fistula otherwise. LUNGS: Equal breath sounds are clear bilaterally. CARDIAC: Regular rate and rhythm with no murmur. ABDOMEN: Soft with no tenderness. ASSESSMENT: A 64-year-old female with end-stage renal disease, has bleeding from her AV fistula, that is persistent. She will need to go to surgery for repair of the fistula. Procedure was explained to the patient including risks, benefits, and alternatives. She understands. She has had the opportunity to ask questions. Thank you for asking me to see Ms. Preciado. MD EID Cristina/ZOE /[id number]
[2020-01-10] MEDS ORDERED: PANTOPRAZOLE SOD 40 MG TABEC PO SCH ×2 (07:30→16:30)
[2020-01-10 07:35] VITALS: BP 116/59
--- NOTE | 2020-01-10 07:35 | NUR ---
PATIENT IN BED RESTING WITH HEAD OF BED ELEVATED, NO DISTRESS NOTED. DRESSING INTACT TO LEFT ARM WITH SOME BRUISES AND SWELLING TO THE ARM. BED IN LOWER POSITION, CALL LIGHT AT REACH.
[2020-01-10] MEDS ORDERED: CALCIUM ACETATE 667 MG GELCAP PO SCH (08:00)
[2020-01-10 08:35] VITALS: BP 116/59
[2020-01-10] MEDS ORDERED: ALPRAZOLAM 1 MG TAB PO SCH (09:00)
[2020-01-10] MEDS ORDERED: AMIODARONE HCL 200 MG TAB PO SCH (09:00)
[2020-01-10] MEDS ORDERED: DULOXETINE HCL 30 MG DELAYED RELEASE PO SCH (09:00)
[2020-01-10] MEDS ORDERED: LORATADINE 10 MG TAB PO SCH (09:00)
--- NOTE | 2020-01-10 09:30 | NUR ---
DR USMAN VALDEZ FOR DISCHARGE CLEARANCE, AWAITING CALL BACK.
--- NOTE | 2020-01-10 10:41 | NUR ---
DR MARY IN TO SEE PATIENT. ORDER RECEIVED TO GIVE VANCOMYCIN 1G IV ONCE, AND DISCHARGE PATIENT AFTER IV VANCOMYCIN IS COMPLETED.
[2020-01-10] MEDS ORDERED: SOD POLYSTYRENE SULFONATE SUSP 15 GM/60 ML BTL PO ONE ×2 (11:25→12:30)
[2020-01-10] MEDS ORDERED: VANCOMYCIN 1GM/NS 250 ML 250 ML IV ONE (11:25)
[2020-01-10 11:39] VITALS: BP 98/51
[2020-01-10] MEDS ORDERED: FLUCONAZOLE 100 MG TAB PO ONE (11:45)
--- NOTE | 2020-01-10 11:57 | Consultation ---
DATE OF CONSULTATION: 01/09/2020 HISTORY OF PRESENT ILLNESS: A 64-year-old female, seen in the emergency room. Discussed with Dr. Khan. Who woke up with something warm running down her left arm where she has a left upper arm fistula and sure enough, the fistula was bleeding. She had noticed a scab there and she was on p.o. antibiotics for it. Has a right-sided tunneled dialysis catheter. She is due for dialysis today. Came into the emergency room, the fistula was bleeding. She had an Brian wrap around it, the bleeding has now stopped. Most likely the scab cut loose and when she started bleeding. Her labs show sodium 136, potassium 6, bicarb 22, and creatinine 8. She is otherwise awake, alert, and oriented x3. No apparent distress. Denies fever, chills, chest pain, or shortness of breath. Her is by her bedside. She is allergic to several medications including tetracycline, morphine, methocarbamol, meperidine, imipenem, gabapentin, erythromycin, cephalexin, atorvastatin, amoxicillin, albuterol, sulfa, and penicillins. SOCIAL HISTORY: . Does not smoke or drink. FAMILY HISTORY: Significant for diabetes. PAST MEDICAL HISTORY: History of sepsis due to the Enterococcus and E coli in the urine. History of congestive heart failure, COPD, end-stage renal disease, diabetes, end-organ damage from diabetes, anemia, chronic kidney disease, and secondary hyperparathyroidism. PAST SURGICAL HISTORY: History of prior appendectomy, splenectomy, history of nephrectomy, history of sleep apnea, history of prior tonsillectomy, and adenoidectomy. PHYSICAL EXAMINATION: GENERAL: Awake, alert, and oriented x3. No apparent distress. VITAL SIGNS: Blood pressure 130/60, pulse rate 70, afebrile, and respiratory rate 14. HEAD AND NECK: Cornea clear. Oral mucosa moist. LUNGS: Occasional rales. HEART: S1 and S2 audible. ABDOMEN: Soft, nontender. No apparent visceromegaly. LOWER EXTREMITY: No edema. Left upper arm in Brian wrap. No evidence of any hand ischemia. HOME MEDICATIONS: Not reconciled yet. The patient is still in the ER. IMPRESSION AND PLAN: End-stage renal disease with hyperkalemia and a bleeding atrioventricular fistula. Discussed with Dr. Rivera, Dr. Torres, and Dr. Khan again. Plan to dialyze the patient and take the patient to the OR for fistula repair. Discussed with family. They agree with plan of care. Dialysis will be done. Dialysis nurse notified. Please see orders. MD EARNEST Weiss/ZOE /[id number]
[2020-01-10] MEDS ORDERED: ONDANSETRON HCL INJ 2MG/ML 2ML 2 MG/ML VIAL IV PRN (12:30)
[2020-01-10] MEDS ORDERED: HEPARIN SOD (PORCINE) 1000 UNIT/ML SDV IV PRN (13:30)
[2020-01-10] MEDS ORDERED: SODIUM CHLORIDE 0.9% 1000ML 2,000 ML IV PRN (13:30)
--- NOTE | 2020-01-10 15:04 | NUR ---
IV ANTIBIOTIC COMPLETED. PATIENT DISCHARGED HOME. DISCHARGE INSTRUCTIONS, PRESCRIPTION, AND FOLLOW UP GIVEN TO PATIENT AND , THEY VERBALIZED UNDERSTANDING. RIGHT CHEST PORT A CATH ACCESS DISCONTINUED WITH TIP INTACT. ALL PERSONAL ITEMS TAKEN WITH PATIENT. LEFT UNIT PER WHEEL CHAIR TO FRONT LOBBY IN STABLE CONDITION.
[2020-01-10] MEDS ORDERED: EZETIMIBE 10 MG TAB PO SCH (17:00)
[2020-01-11] MEDS ORDERED: MIDODRINE HCL 5 MG TABLET PO SCH ×2 (09:00→17:00)
== END 2020-01-10 14:55 | disposition home or self-care (01) ==
LOC: ER 10:26 → ERHOLD 10:31 → MED/SURG3 14:45
PROVIDERS: ADMIT Internal Medicine; ATTEND Internal Medicine
DX: T82.838A Hemorrhage due to vascular prosthetic devices, implants and grafts, initial encounter (principal); E11.22 Type 2 diabetes mellitus with diabetic chronic kidney disease; N18.6 End stage renal disease; Z99.2 Dependence on renal dialysis; Z82.49 Family history of ischemic heart disease and other diseases of the circulatory system; E66.01 Morbid (severe) obesity due to excess calories; Z68.35 Body mass index [BMI] 35.0-35.9, adult; I95.1 Orthostatic hypotension; D64.9 Anemia, unspecified; E87.5 Hyperkalemia; Z88.1 Allergy status to other antibiotic agents; Z88.5 Allergy status to narcotic agent; Z88.0 Allergy status to penicillin; Z88.2 Allergy status to sulfonamides; Z88.8 Allergy status to other drugs, medicaments and biological substances; Z11.59 Encounter for screening for other viral diseases; T82.898A Other specified complication of vascular prosthetic devices, implants and grafts, initial encounter
CPT/HCPCS: 36415 ×2; 37607; 80053 ×2; 82550; 82553; 82948 ×2; 84484; 85025 ×2; 85610; 86705; 86706; 87340; 88304; 90935; 93005; 99284; G0378 ×2; J1100; J1644 ×2; J1817; J2001; J2370; J2405 ×2; J2704; J2710; J2765; J3010; J3370 ×2; J7030; J7040; J7799; S0164; U0002

== ENCOUNTER 2020-02-18 17:16 | Observation (INO) | payer BC ==
[~2020-02-18] VITALS: Ht 154.9 cm; Wt 88.5 kg
[~2020-02-18 17:16] MED LIST changes: +AMIODARONE HCL200 MG PO; +CALCIUM ACETAT667 MG PO; +CYMBALTA30 MG PO; +ELIQUIS5 MG PO; +METOPROLOL SUCC25 MG PO; +MIDODRINE HCL5 MG PO; +PROBIOTIC & AC1 EACH PO; +PROTONIX20 MG PO; +ZETIA10 MG PO; +ZYRTEC10 M3 PO
[2020-02-18] MEDS ORDERED: ADENOSINE 6MG/2ML 2 ML ONE (17:33)
[2020-02-18] MEDS ORDERED: ADENOSINE 6MG/2ML 1 ML ONE (17:36)
[2020-02-18] MEDS ORDERED: ONDANSETRON HCL INJ 2MG/ML 2ML 2 MG/ML VIAL IV STA (17:44)
[2020-02-18] MEDS ORDERED: METOPROLOL TARTRATE 25 MG TAB PO ONE (17:45)
[2020-02-18] MEDS ORDERED: ADENOSINE 6 MG/2 ML VIAL IV ONE (17:45)
[2020-02-18 17:51] LABS: BASOPHILS # (AUTO) 0.1 (0.0-0.1); BASOPHILS % 0.7 % (0.0-1.0); EOSINOPHILS # (AUTO) 0.2 (0.0-0.4); EOSINOPHILS % 1.4 % (0.0-6.0); HEMATOCRIT 39.4 % (34.2-44.1); HEMOGLOBIN 12.6 g/dL (12.0-16.0); LYMPHOCYTES # (AUTO) 7.1 (1.0-3.2); LYMPHOCYTES % 44.1 % (18.0-39.1); MEAN CORPUSCULAR HEMOGLOBIN 30.3 pg (28-32); MEAN CORPUSCULAR VOLUME 94.7 fL (81-99); MONOCYTES # (AUTO) 1.1 (0.2-0.8); MONOCYTES % 7.1 % (4.4-11.3); NEUTROPHILS # (AUTO) 7.5 (2.1-6.9); NEUTROPHILS % 46.2 % (38.7-80.0); PLATELET COUNT 742 x10e3/uL (140-360); RED BLOOD COUNT 4.16 x10e6/uL (3.6-5.1); RED CELL DISTRIBUTION WIDTH 16.5 % (11.7-14.4)
[2020-02-18 17:58] LABS: INR 0.95; PROTHROMBIN TIME 13.2 seconds (11.9-14.5)
[2020-02-18 17:59] LABS: PARTIAL THROMBOPLASTIN TIME 32.6 seconds (23.8-35.5)
--- OUTSIDE RECORDS SUMMARY | 2020-02-18 18:06 | XMS REPORT | Clinical Summary ---
Author Author [facility]ELIN [facility] Address Unknown Phone Unavailable Care Team Providers Care Grades 9 12 Tutor Name Role Phone PCP Unavailable Allergies Comments [...] (end stage renal disease) on dialys is ([facility]) (Primary Dx); Encounter regarding vascular access for dialysis for end-stage renal disease (HCC); Essential hypertension 09/26/2019 Video - Cardiology Telemedicine after 02/17/2019 Social History Date Tobacco Use Types Packs/Day [...] Not on file Results Not on fileafter 02/17/2019
--- OUTSIDE RECORDS SUMMARY | 2020-02-18 18:07 | XMS REPORT | Continuity of Care Document ---
Author Author [facility] t Organization [facility] Address [address] [place] [address] [address] [place] [address] Phone Unavailable Care Team Providers Care Maintenance Man Name Role Phone MD KYLEE ACOSTA MD PCP Blake Braswell MD Attphys [phone] KYLEE ACOSTA Attphys Unavailable HAMPEL, AN Attphys Unavailable DALIA BRASWELL Attphys Unavailable SCHIESSER, [place] PRISCILLA Attphys Unavailable MANEEVESE, V RONY Attphys Unavailable KYLEE ACOSTA Admphys Unavailable Payers Payer Name Policy Type Policy Number Effective Date Expiration Date S reddy [facility] [id number] I [facility] [id number] 2017 00:00:00 [facility] Problems Condition Name Condition Details Condition Category Status Onset Date Resolution Date Last Treatment Date Treating Clinician Comments Source Multiple gallstones Problem Active 2015-05-05 00:00:00 [facility] Renal colic on right side Renal colic on right side Problem Ac tive 2014-08-25 00:00:00 [facility] Congestive heart failure CHF (congestive heart failure) Problem Active [facility] Cerebrovascular accident (CVA) CVA (cerebrovascular accident) Problem Active [facility] Chest pain Chest pain Problem Active [facility] Chronic obstructive pulmonary disease COPD (chronic ob structive pulmonary disease) Problem Active [facility] Weakness Weakness Problem Active [facility] Urinary tract infection UTI (urinary tract infection) Problem Active [facility] Atrial fibrillation with rapid ventricular response At rial fibrillation with RVR Problem Active [facility] Hypoxia Hypoxia Problem Active [facility] Respiratory distress Respiratory distress Problem Active [facility] 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 Problem Active [facility] Dialysis catheter clot or failure Problem Active [facility] Allergies, Adverse Reactions, Alerts Allergy Name Allergy Type Status Severity Reaction(s) Onset Date Inacti ve Date Treating Clinician Comments Source Penicillin Allergy to substance Active 2020-01-09 00:00:00 [facility] Sulfa (Sulfonamide Antibiotics) Allergy to substance Active 2020-01-09 00:00:00 [facility] Morphine Allergy to substance Active 2020-01-09 00:00:00 [facility] Codeine Allergy to substance Active 2020-01-09 00:00:00 [facility] Methocarbamol Allergy to substance Active 2020-01-09 00:00: 00 [facility] Albuterol Allergy to substance Active 2020-01-09 00:00:00 [facility] Lactose Propensity to adverse reactions Active Severe 00:00:00 [facility] Cephalexin Allergy to substance Active 2020-01-09 00:00:00 [facility] Tetracycline Allergy to substance Active 2020-01-09 00:00:0 0 [facility] Erythromycin base Allergy to substance Active 2020-01-09 00 :00:00 [facility] Imipenem Allergy to substance Active RASH 2020-01-09 00:00:00 [facility] Amoxicillin Allergy to substance Active 2020-01-09 00:00:00 [facility] Gabapentin Allergy to substance Active 2020-01-09 00:00:00 [facility] Cilastatin Allergy to substance Active RASH 2020-01-09 00:00:00 [facility] Meperidine Allergy to substance Active 2020-01-09 00:00:00 [facility] Atorvastatin Allergy to substance Active Moderate itching and m uscle cramps 2020-01-09 00:00:00 [facility] Amoxicillin-Pot Clavulanate Propensity to adverse reactions Active 2019-09-21 00:00:00 [facility] Codeine Propensity to adverse reactions Active 2019-09-21 0 0:00:00 [facility] Meperidine Propensity to adverse reactions Active 1 00:00:00 [facility] Cephalexin Propensity to adverse reactions Active 1 00:00:00 [facility] Penicillins Propensity to adverse reactions Active 2019 00:00:00 [facility] Sulfa (Sulfonamide Antibiotics) Propensity to adverse reactions Activ e 2019-09-21 00:00:00 [facility] Sulfa (Sulfonamide Antibiotics) DA Active 2018-12-20 00 :00:00 [facility] gabapentin DA Active 2018-12-20 00:00:00 [facility] Penicillins DA Active SV 2018-03-31 00:00:00 [facility] Evphble-Hzb-Jpw Reductase Inhibitor DA Active 9 00:00:00 [facility] morphine DA Active SV 2018-03-31 00:00:00 [facility] codeine DA Active SV 2018-03-31 00:00:00 [facility] methocarbamol DA Active SV 2018-03-31 00:00:00 [facility] cephalexin DA Active SV 2018-03-31 00:00:00 [facility] tetracycline DA Active SV 2018-03-31 00:00:00 [facility] erythromycin base DA Active SV 2018-03-31 00:00:00 [facility] clavulanic acid DA Active SV 2018-03-31 00:00:00 [facility] imipenem DA Active SV 2018-03-31 00:00:00 [facility] adhesive tape DA Active SV 2018-03-31 00:00:00 [facility] amoxicillin DA Active SV 2018-03-31 00:00:00 [facility] cilastatin DA Active SV 2018-03-31 00:00:00 [facility] meperidine DA Active SV 2018-03-31 00:00:00 [facility] Penicillins DA Active SV 2016-03-07 00:00:00 [facility] Tmpfmne-Jpi-Nbt Reductase Inhibitor DA Active SV 2016-02-21 00:00:00 [...] [facility] TAPE Allergy to substance Active Mild RASH 2009-04-17 00:00:00 [facility] Social History Social Habit Start Date Stop Date Quantity Comments Source History SDOH Alcohol Std Drinks [facility] History SDOH Alcohol Binge [facility] Tobacco use and exposure 2019-09-21 00:00:00 2019-09-21 00:00:00 Brian sutherland [facility] Alcohol intake 2019-09-21 00:00:00 2019-09-21 00:00:00 Current non-drinker of alcohol (finding) [facility] r History SDOH Alcohol Frequency 2019-09-21 00:00:00 2019-09-21 00:00:0 0 1 [facility] Sex Ass[birth year] At 1955 00:00:00 1955 00:00:00 Female [facility] Smoking Status Start Date Stop Date Source Never smoker [facility] Medications Ordered Medication Name Filled Medication Name Start Date Stop Da te Current Medication? Ordering Clinician Indication Dosage Frequency Signature (SIG) Comments Components Source ELIQUIS 5 MG tablet 2019-09-10 00:00:00 Yes [facility] amiodarone (PACERONE) 200 MG tablet 2019-09-08 00:00:00 Yes [facility] cloNIDine HCL (CATAPRES) 0.1 MG tablet 2019-09-08 00:00:00 Yes [facility] DULoxetine (CYMBALTA) 30 MG capsule 2019-09-08 00:00:00 Yes [facility] metoclopramide HCl (REGLAN) 10 MG tablet 2019-09-08 00:00:00 Y es [facility] r metoprolol tartrate (LOPRESSOR) 25 MG tablet 2019-09-08 00:00:00 Yes [facility] midodrine (PROAMATINE) 10 MG tablet 2019-09-08 00:00:00 Yes [facility] clopidogreL (PLAVIX) 75 mg tablet 2019-09-08 00:00:00 Yes [facility] pantoprazole (PROTONIX) 40 MG tablet 2019-09-08 00:00:00 Yes [facility] traZODone (DESYREL) 100 MG tablet 2019-09-08 00:00:00 Yes [facility] ezetimibe (ZETIA) 10 mg tablet 2019-09-08 00:00:00 Yes [facility] fluconazole (DIFLUCAN) 100 MG tablet 2019-09-08 00:00:00 Yes [facility] levoFLOXacin (LEVAQUIN) 500 MG tablet 2019-09-08 00:00:00 Yes [facility] Metronidazole Metronidazole 2015-05-11 12:22:00 2016-01-20 00:00:00 No 500 Three Times A Day [facility] Alprazolam Alprazolam Yes 1 Three Times A Day for Anxiety [facility] Amiodarone Hcl Amiodarone Hcl Yes 200 Daily [facility] Apixaban (Eliquis) 5 Mg TABLET Apixaban (Eliquis) 5 Mg TABLET Yes 5 Twice A Day [facility] Calcium Acetate Calcium Acetate Yes 667 Twice Da junaid With Meals [facility] Cetirizine Hcl (Zyrtec) 10 Mg CAPSULE Cetirizine Hcl (Zyrtec) 10 Mg CAPSULE Yes 1 Daily [facility] Clonidine Hcl Clonidine Hcl Yes 1 Every 6 Hours as needed for High Blood Pressure [facility] Clopidogrel Bisulfate (Plavix) 75 Mg TABLET Clopidogre l Bisulfate (Plavix) 75 Mg TABLET Yes 75 Daily [facility] Dicyclomine Hcl Dicyclomine Hcl Yes 10 Twice A Day [facility] Duloxetine Hcl (Cymbalta) 30 Mg CAPSULE. Duloxetine Hcl (Cymbalta) 30 Mg CAPSULE. Yes 30 Daily [facility] Ezetimibe (Zetia) 10 Mg TABLET Ezetimibe (Zetia) 10 Mg TABLET Yes 10 Daily@1700 [facility] Hydromorphone Hcl (Dilaudid) 2 Mg TAB Hydromorphone Hcl (Dilaudid) 2 Mg TAB Yes 4 Every 8 Hours as needed for Moderate Josh n (4-6) [facility] Hydroxyzine Hcl Hydroxyzine Hcl Yes 25 Twice A Day as needed for Itching [facility] Lactobac Cmb #3/Fos/Pantethine (Probiotic & Acidophilu s Cap) 1 Each CAPSULE Lactobac Cmb #3/Fos/Pantethine (Probiotic & Acidophilus Cap) 1 Each CAPSULE Yes 1 Daily [facility] Linzess Linzess Yes 290 Twice A Day as needed fo r Constipation [facility] Metoprolol Succinate Metoprolol Succinate Yes 12.5 Daily [facility] Midodrine Hcl Midodrine Hcl Yes 5 Three Times A Day [facility] Midodrine Hcl Midodrine Hcl Yes 5 Daily [facility] Midodrine Hcl Midodrine Hcl Yes 10 Daily [facility] Nitroglycerin Nitroglycerin Yes .4 Every 5 Minutes as needed for Chest Pain [facility] Ondansetron Hcl (Zofran) 8 Mg TABLET Ondansetron Hcl (Zofran) 8 Mg TABLET Yes 4 Every 4 Hours as needed for Nausea And V omiting [facility] Pantoprazole Sodium (Protonix) 20 Mg TABLET. Pantopr azole Sodium (Protonix) 20 Mg TABLET. Yes 20 Twice Daily Before Meals [facility] Repatha Repatha Yes 140 Q Other Thursday [facility] Trazodone Hcl Trazodone Hcl Yes 400 Bedtime [facility] Amlodipine Besylate Amlodipine Besylate 2020-01-09 00:00:00 No 10 Daily [facility] Bumetanide Bumetanide 2020-01-09 00:00:00 No 1 Twi ce A Day [facility] Dexlansoprazole (Dexilant) 30 Mg CAP. Dexlansopra zole (Dexilant) 30 Mg CAP. 2020-01-09 00:00:00 No 60 Daily [facility] Duloxetine Hcl (Cymbalta) 60 Mg CAPSULE. Duloxetine Hcl (Cymbalta) 60 Mg CAPSULE. 2020-01-09 00:00:00 No 60 Twice A Day [facility] Hydralazine Hcl Hydralazine Hcl 2020-01-09 00:00:00 No 50 Twice A Day [facility] Isosorbide Mononitrate (Isosorbide Mononitrate Er) 30 Mg TAB.ER.24H Isosorbide Mononitrate (Isosorbide Mononitrate Er) 30 Mg TAB.ER.24H 202 00:00:00 No 90 Twice A Day [facility] Liothyronine Sodium (Cytomel) 25 Mcg TABLET Liothyroni ne Sodium (Cytomel) 25 Mcg TABLET 2020-01-09 00:00:00 No 25 Daily [facility] Metaxalone Metaxalone 2020-01-09 00:00:00 No 800 Fou r Times Daily [facility] Metoclopramide Hcl (Reglan) 10 Mg TABLET Metoclopramid e Hcl (Reglan) 10 Mg TABLET 2020-01-09 00:00:00 No 10 Three Times A Day [facility] Metoprolol Er Metoprolol Er 2020-01-09 00:00:00 No 300 Daily [facility] Metoprolol Succinate Metoprolol Succinate 2020-01-09 00:00:00 No 1 Daily [facility] Oxybutynin Chloride Oxybutynin Chloride 2020-01-09 00:00:00 No 5 Twice A Day [facility] Potassium Chloride Potassium Chloride 2020-01-09 00:00:00 No 10 as needed for When Taking Fluid Pill [facility] Terbinafine Hcl Terbinafine Hcl 2020-01-09 00:00:00 No 250 Daily [facility] Warfarin Sodium Warfarin Sodium 2020-01-09 00:00:00 No 3 Today At 6:00PM [facility] Amlodipine Besylate (Norvasc) 5 Mg TAB Amlodipine Besylate (Norv asc) 5 Mg TAB 2019-01-06 00:00:00 No 10 Daily [facility] Liothyronine Sodium (Cytomel) 25 Mcg TABLET Liothyroni ne Sodium (Cytomel) 25 Mcg TABLET 2019-01-06 00:00:00 No 25 Daily@0600 [facility] Metoprolol Succinate Metoprolol Succinate 2019-01-06 00:00:00 No 200 Daily [facility] Warfarin Sodium (Coumadin) 2 Mg TABLET Warfarin Sodium (Coumadin ) 2 Mg TABLET 2019-01-06 00:00:00 No 4 Today At 6:00PM [facility] Buspirone Hcl Buspirone Hcl 2018-09-21 00:00:00 No 15 Twice A Day [facility] Fluconazole (Diflucan) 100 Mg TABLET Fluconazole (Diflucan) 100 Mg TABLET 2018-09-21 00:00:00 No 100 Daily [facility] Tizanidine Hcl Tizanidine Hcl 2018-09-21 00:00:00 No 4 Three Times A Day as needed for Muscle Spasms [facility] Dicyclomine Hcl Dicyclomine Hcl 2018-05-23 00:00:00 No 10 Three Times A Day as needed for Diarrhea [facility] Hydrocodone Bit/Acetaminophen (Hydrocodon-Acetaminophn 10-325) 1 Each TABLET Hydrocodone Bit/Acetaminophen (Hydrocodon-Acetaminophn 10-325) 1 Each TABLET 2018-05-23 00:00:00 No Every 8 Hours [facility] Tizanidine Hcl Tizanidine Hcl 2018-05-23 00:00:00 No 4 Three Times A Day as needed for Muscle Spasms [facility] Aspirin Aspirin 2018-03-03 00:00:00 No 81 Daily [facility] Atenolol Atenolol 2018-03-03 00:00:00 No 100 Daily [facility] Docusate Sodium Docusate Sodium 2018-03-03 00:00:00 No 250 Daily [facility] Prasugrel Hcl (Effient) 10 Mg TABLET Prasugrel Hcl (Effient) 10 Mg TABLET 2018-03-03 00:00:00 No 10 Daily [facility] Prasugrel Hcl (Effient) 10 Mg TABLET Prasugrel Hcl (Effient) 10 Mg TABLET 2018-03-03 00:00:00 No 10 Daily [facility] Docusate Sodium (Colace) 100 Mg CAP Docusate Sodium (Colace) 100 Mg CAP 2016-12-22 00:00:00 No 100 Daily [facility] Alprazolam (Xanax) 0.5 Mg TABLET Alprazolam (Xanax) 0.5 Mg TABLE T 2016-05-11 00:00:00 No 1 Three Times A Day [facility] Metformin Hcl Metformin Hcl 2016-05-11 00:00:00 No 1000 Twice A Day [facility] Olmesartan/Hydrochlorothiazide (Benicar Hct 40-25 Mg T ablet) 1 Each TABLET Olmesartan/Hydrochlorothiazide (Benicar Hct 40-25 Mg Tablet) 1 Each TABLET 2016-05-11 00:00:00 No Daily [facility] Ondansetron (Zofran Odt) 4 Mg TAB.RAPDIS Ondansetron ( Zofran Odt) 4 Mg TAB.RAPDIS 2016-05-11 00:00:00 No 4 Every 6 Hours [facility] Levalbuterol Tartrate (Xopenex Hfa) 15 Gm HFA.AER.AD L evalbuterol Tartrate (Xopenex Hfa) 15 Gm HFA.AER.AD 2016-01-13 00:00:00 No [facility] Armodafinil (Nuvigil) 150 Mg TABLET Armodafinil (Nuvigil) 150 Mg TABLET 2015-05-05 00:00:00 No 150 Daily [facility] Armodafinil (Nuvigil) 150 Mg TABLET Armodafinil (Nuvigil) 150 Mg TABLET 2015-05-05 00:00:00 No 150 Daily [facility] Fluconazole (Diflucan) 100 Mg TABLET Fluconazole (Diflucan) 100 Mg TABLET 2015-05-05 00:00:00 No 100 Daily [facility] Lactaid Lactaid 2015-05-05 00:00:00 No As Needed [facility] Levofloxacin (Levaquin) 500 Mg TABLET Levofloxacin (Levaquin) 50 0 Mg TABLET 2015-05-05 00:00:00 No 500 Daily [facility] Nasacort Nasacort 2015-05-05 00:00:00 No Daily [facility] Omeprazole/Sodium Bicarbonate (Zegerid 40 Mg Capsule) 1 Each CAPSULE Omeprazole/Sodium Bicarbonate (Zegerid 40 Mg Capsule) 1 Each CAPSULE 2015-05-05 00:00:00 No 40 Twice A Day [facility] Omeprazole/Sodium Bicarbonate (Zegerid 40 Mg Capsule) 1 Each CAPSULE Omeprazole/Sodium Bicarbonate (Zegerid 40 Mg Capsule) 1 Each CAPSULE 2015-05-05 00:00:00 No 40 [facility] Tum Tums 2015-05-05 00:00:00 No As Needed [facility] 2015-05-05 00:00:00 No Daily [facility] Benicar Benicar 2014-09-28 00:00:00 No [facility] Ciprofloxacin/Ciprofloxa Hcl (Cipro Xr 500 Mg Tablet) 500 Mg TBMP.24HR Ciprofloxacin/Ciprofloxa Hcl (Cipro Xr 500 Mg Tablet) 500 Mg TBMP.24HR 2014-09-28 00:00:00 No Daily [facility] Flucananzole Flucananzole 2014-09-28 00:00:00 No 100 Daily [facility] Ramila Ramila 2014-09-28 00:00:00 No [facility] 2014-09-28 00:00:00 No [facility] Alprazolam (Xanax Xr) 1 Mg TAB.ER.24H Alprazolam (Xanax Xr) 1 Mg TAB.ER.24H 2014-08-28 00:00:00 No 3 As Needed [facility] Aspirin (Aspir 81) 81 Mg TABLET. Aspirin (Aspir 81) 81 Mg TABL ET. 2014-08-26 00:00:00 No 81 Daily [facility] Clonidine Hcl Clonidine Hcl 2014-08-26 00:00:00 No .2 As Needed [facility] Fluticasone/Salmeterol (Advair 100-50 Diskus) 1 Each D ISK.W.DEV Fluticasone/Salmeterol (Advair 100-50 Diskus) 1 Each DISK.W.DEV 2014-08-26 00:00:00 No 1 As Needed [facility] Fluticasone/Salmeterol (Advair 100-50 Diskus) 1 Each D ISK.W.DEV Fluticasone/Salmeterol (Advair 100-50 Diskus) 1 Each DISK.W.DEV 2014-08-26 00:00:00 No 1 Twice A Day [facility] Meloxicam Meloxicam 2014-08-26 00:00:00 No 7.5 Twice A Day [facility] Tramadol Hcl (Rybix Odt) 50 Mg TAB.RAPDIS Tramadol Hcl (Rybix Odt) 50 Mg TAB.RAPDIS 2014-08-26 00:00:00 No 50 As Needed [facility] Chlorzoxazone (Parafon Forte Dsc) 500 Mg TABLET Chlorz oxazone (Parafon Forte Dsc) 500 Mg TABLET 2013-03-01 00:00:00 No 500 Daily [facility] Vital Signs Vital Name Observation Time Observation Value Comments Source Body Temperature 2020-01-10 11:39:00 98.1 [degF] [facility] Heart Rate 2020-01-10 11:39:00 68 /min [facility] Respiratory rate 2020-01-10 11:39:00 16 /min [facility] BP Systolic 2020-01-10 11:39:00 98 mm[Hg] [facility] BP Diastolic 2020-01-10 11:39:00 51 mm[Hg] [facility] Oxygen saturation by Pulse oximetry 2020-01-10 11:39:00 95 /min [facility] Weight 2020-01-09 10:22:00 221 [lb_av] [facility] BMI (Body Mass Index) 2020-01-09 10:22:00 35.7 kg/m2 [facility] Procedures Procedure Date / Time Performed Performing Clinician Mala becki PERFORMANCE OF URINARY FILTRATION, <6 HRS/DAY 2019-06-01 00:00:0 0 [facility] PERFORMANCE OF URINARY FILTRATION, <6 HRS/DAY 2019-05-30 00:00:0 0 [facility] REVISION OF INFUSION DEVICE IN UPPER ARTERY, PERC APPROACH 2 00:00:00 [facility] REPOSITION LEFT BRACHIAL ARTERY, OPEN APPROACH 2019-05-30 00:00: 00 [facility] Ultrasound guidance for vascular access 2019-05-28 00:00:00 PAPO MARY [facility] INSERTION OF INFUSION DEV INTO INF VENA CAVA, PERC APPROACH 2019-05-28 00:00:00 [facility] ULTRASONOGRAPHY OF INFERIOR VENA CAVA, GUIDANCE 2019-05-28 00:00 :00 [facility] PERFORMANCE OF URINARY FILTRATION, <6 HRS/DAY 2019-05-28 00:00:0 0 [facility] PERFORMANCE OF URINARY FILTRATION, <6 HRS/DAY 2019-05-26 00:00:0 0 [facility] PERFORMANCE OF URINARY FILTRATION, <6 HRS/DAY 2019-05-25 00:00:0 0 [facility] INTRODUCTION OF VASOPRESSOR INTO CENTRAL VEIN, PERC AP PROACH 2019-05-25 00:00:[address] [facility] CT of abdomen and pelvis without contrast 2019-05-25 00:00:00 [facility] REMOVAL OF INFUSION DEVICE FROM LOWER VEIN, PERC APPROACH 3-02 00:00:00 [facility] INSERTION OF INFUSION DEVICE INTO R [facility] APPROACH 3-02 00:00:00 [facility] INSERT OF TUNNEL VAD INTO CHEST SUBCU/FASCIA, PERC APPROACH 2019-05-23 00:00:00 [facility] PERFORMANCE OF URINARY FILTRATION, <6 HRS/DAY 2019-05-23 00:00:0 0 [facility] PERFORMANCE OF URINARY FILTRATION, <6 HRS/DAY 2019-05-20 00:00:0 0 [facility] PERFORMANCE OF URINARY FILTRATION, <6 HRS/DAY 2019-05-19 00:00:0 0 [facility] PERFORMANCE OF URINARY FILTRATION, <6 HRS/DAY 2019-05-18 00:00:0 0 [facility] PERFORMANCE OF URINARY FILTRATION, <6 HRS/DAY 2019-05-17 00:00:0 0 [facility] INSERTION OF INFUSION DEV INTO SUP VENA CAVA, PERC APPROACH 2019-05-16 00:00:00 [facility] ULTRASONOGRAPHY OF SUPERIOR VENA CAVA, GUIDANCE 2019-05-16 00:00 :00 [facility] PERFORMANCE OF URINARY FILTRATION, <6 HRS/DAY 2019-05-16 00:00:0 0 [facility] Echo guide for biopsy 2019-05-16 00:00:00 [facility] ASSISTANCE WITH RESPIRATORY VENTILATION, <24 HRS, CPAP 2019-04-24 2 00:00:00 [facility] Plan of Care Planned Activity Planned Date Details Comments Source Instructions AV Fistula Care [facility] Instructions Infection Control [facility] [place] Encounters Start Date/Time End Date/Time Encounter Type Admission Type Attendi [facility] Care Department Encounter ID Source 2020-01-09 10:31:00 2020-01-10 14:55:00 Discharged Inpatient (obs) [facility] [id number] [facility] edical [place] 2019-05-13 21:25:00 2019-06-01 20:14:00 Discharged Inpatient 1 KYLEE ACOSTA [facility] [id number] [facility] [place] 2019-02-11 08:52:00 2019-02-11 08:52:00 Registered Clinic 3 AN BETANCOURT [facility] [id number] [facility] ical [place] 2019-01-13 11:31:00 2019-01-13 11:31:00 Registered Surgical Day Car e 3 DALIA BRASWELL [facility] [id number] [facility] 2019-01-07 06:16:00 2019-01-07 06:16:00 Registered Surgical Day Car e 3 PRISCILLA ARRINGTON [facility] [id number] [facility] 2018-12-14 06:26:00 2018-12-14 06:26:00 Registered Surgical Day Care [facility] [id number] [facility] Patients [facility] 2018-11-09 16:41:00 2018-11-09 18:41:00 Departed Emergency Room [facility] [id number] [facility]. [facility] 2018-09-20 16:13:00 2018-09-20 16:13:00 Registered Clinic 3 AN BETANCOURT [facility] [id number] [facility]. [facility] 2018-05-23 20:43:00 2018-05-31 19:04:00 Discharged Inpatient 1 KYLEE ACOSTA [facility] [id number] [facility] 2018-03-03 16:41:00 2018-03-22 20:24:00 Discharged Inpatient 1 KYLEE ACOSTA [facility] [id number] [facility] 2018-01-25 22:11:00 2018-01-26 03:06:00 Departed Emergency Room 1 RONY RONDON [facility] [id number] [facility] 2017-11-11 08:51:00 2017-11-11 08:51:00 Registered Clinic [facility] [id number] [facility] 2017-11-04 09:07:00 2017-11-04 09:07:00 Registered Clinic [facility] [id number] [facility] 2017-07-19 13:40:00 2017-07-24 18:29:00 Discharged Inpatient ER KYLEE ACOSTA [facility] [id number] [facility] 2017-07-09 16:40:00 2017-07-18 14:58:00 Discharged Inpatient ER KYLEE ACOSTA [facility] [id number] [facility] 2016-12-22 17:14:00 2016-12-24 16:25:00 Discharged Inpatient ER KYLEE ACOSTA [facility] [id number] [facility] Results Test Description Test Time Test Comments Results Result Comments Source Capillary blood glucose measurement by glucometer (mas s/volume) 2020-01-10 10:38:00 Test Item Bedside Glucose (test code = 60881-1) 99 mg/dL 70-120 Meter ID: [id number]Bl[facility] [place] leukocytes automated count (number/volume)2020-01-10 05:40:00* Test Item Value Reference Range Interpretation Comments White Blood Count (test code = 6690-2) 13.74 10*3/uL 4.8-10.8 [facility] erythrocytes automated count (number/volume)2020-01-10 05:40:00* Test Item Value Reference Range Interpretation Comments Red Blood Count (test code = 789-8) 3.30 10*6/mL 3.6-5.1 [facility] AreaBlood hemoglobin measurement (moles/volume)2020-01-10 05:40:00* Test Item Value Reference Range Interpretation Comments Hemoglobin (test code = 80195-9) 9.6 g/dL 12.0-16.0 [facility] AreaAutomated blood hematocrit (volume fraction)2020-01-10 05:40:00* Test Item Value Reference Range Interpretation Comments Hematocrit (test code = 4544-3) 29.4 % 34.2-44.1 [facility] AreaAutomated erythrocyte mean corpuscular pumnha1549-75-08 05:40:00* Test Item Value Reference Range Interpretation Comments Mean Corpuscular Volume (test code = 787-2) 89.1 81-99 [facility] AreaAutomated erythrocyte mean corpuscular hemoglobin (mass per erythrocyte)2020-01-10 05:40:00* Test Item Value Reference Range Interpretation Comments Mean Corpuscular Hemoglobin (test code = 785-6) 29.1 pg 28-32 [facility] AreaAutomated erythrocyte mean corpuscular hemoglobin concentration measurement (mass/volume)2020-01-10 05:40:00* Test Item Value Reference Range Interpretation Comments Mean Corpuscular Hemoglobin Concent (test code = 786-4) 32.7 g/dL 31-35 [facility] AreaRDW DnrLt-Wjr4876-78-20 05:40:00* Test Item Value Reference Range Interpretation Comments Red Cell Distribution Width (test code = 55901-1) 17.2 % 11.7 -14.4 [facility] blood platelet count (count/volume)2020-01-10 05:40:00* Test Item Value Reference Range Interpretation Comments Platelet Count (test code = 777-3) 487 10*3/uL 140-360 [facility] segmented neutrophil count as percentage of total xuyplflyfr7142-82-28 05:40:00* Test Item Value Reference Range Interpretation Comments Neutrophils (%) (Auto) (test code = 83356-5) 67.4 % 38.7-80.0 [facility] blood lymphocyte count as percentage ot total tmwaqksamx4571-23-77 05:40:00* Test Item Value Reference Range Interpretation Comments Lymphocytes (%) (Auto) (test code = 736-9) 26.1 % 18.0-39.1 [facility] AreaAutcentral harnett hospitaled blood monocyte count as percentage of total bncslqqlmg7357-20-89 05:40:00* Test Item Value Reference Range Interpretation Comments Monocytes (%) (Auto) (test code = 5905-5) 5.6 % 4.4-11.3 [facility] eosinophil count as percentage of total uryurgwplk6172-13-62 05:40:00* Test Item Value Reference Range Interpretation Comments Eosinophils (%) (Auto) (test code = 713-8) 0.1 % 0.0-6.[address] [facility] basophil count as percentage of total qiagmdkmba5049-47-40 05:40:00* Test Item Value Reference Range Interpretation Comments Basophils (%) (Auto) (test code = 706-2) 0.4 % 0.0-1.0 [facility] AreaFluoroscopic procedure less than one hour vpqwfqsg5014-68-11 05:40:00* Test Item Value Reference Range Interpretation Comments IM GRANULOCYTES % (test code = IM GRANULOCYTES %) 0.4 % 0.0- 1.0 [facility] AreaAutomated blood neutrophil count 2020-01-10 05:40:00* Test Item Value Reference Range Interpretation Comments Neutrophils # (Auto) (test code = 751-8) 9.3 2.1-6.9 [facility] AreaBlood lymphocytes count (number/volume) 2020-01-10 05:40:00* Test Item Value Reference Range Interpretation Comments Lymphocytes # (Auto) (test code = 55523-9) 3.6 1.0-3.2 [facility] AreaBlood monocytes automated count (number/volume)2020-01-10 05:40:00* Test Item Value Reference Range Interpretation Comments Monocytes # (Auto) (test code = 742-7) 0.8 0.2-0.8 [facility] AreaAutomated blood eosinophil count 2020-01-10 05:40:00* Test Item Value Reference Range Interpretation Comments Eosinophils # (Auto) (test code = 711-2) 0.0 0.0-0.4 [facility] AreaAutomated blood basophil count (count/volume)2020-01-10 05:40:00* Test Item Value Reference Range Interpretation Comments Basophils # (Auto) (test code = 704-7) 0.1 0.0-0.1 [facility] AreaFluoroscopic procedure less than one hour dhtqsinh2619-01-03 05:40:00* Test Item Value Reference Range Interpretation Comments Absolute Immature Granulocyte (auto (ortega t code = Absolute Immature Granulocyte (auto) 0.06 10*3/uL 0-0.1 [facility] sodium measurement (moles/volume)2020-01-10 05:40:00* Test Item Value Reference Range Interpretation Comments Sodium Level (test code = 2951-2) 136 mmol/L 136-145 [facility] potassium measurement (moles/volume)2020-01-10 05:40:00* Test Item Value Reference Range Interpretation Comments Potassium Level (test code = 2823-3) 5.1 mmol/L 3.5-5.1 [facility] chloride measurement (moles/volume)2020-01-10 05:40:00* Test Item Value Reference Range Interpretation Comments Chloride Level (test code = 2075-0) 99 mmol/L 98-107 [facility] or plasma carbon dioxide, total measurement (moles/volume)2020-01-10 05:40:00* Test Item Value Reference Range Interpretation Comments Carbon Dioxide Level (test code = 2028-9) 25 mmol/L 22-29 [facility] or plasma anion kkd1845-32-08 05:40:00* Test Item Value Reference Range Interpretation Comments Anion Gap (test code = 25008-5) 17.1 mmol/L 8-16 [facility]ere[facility] or plasma urea nitrogen measurement (mass/volume)2020-01-10 05:40:00* Test Item Value Reference Range Interpretation Comments Blood Urea Nitrogen (test code = 3094-0) 28 mg/dL 7-26 [facility] or plasma creatinine measurement (mass/volume)2020-01-10 05:40:00* Test Item Value Reference Range Interpretation Comments Creatinine (test code = 2160-0) 4.46 mg/dL 0.57-1.11 [facility] or plasma urea nitrogen/creatinine mass fmetr9555-01-24 05:40:00* Test Item Value Reference Range Interpretation Comments BUN/Creatinine Ratio (test code = 3097-3) 6 6-25 [facility] AreaEstimated glomerular filtration rate (GFR) fevjeziuibqyk2905-34-33 05:40:00* Test Item Value Reference Range Interpretation Comments Estimat Glomerular Filtration Rate (test code = 428751641) 10 mL/mi n >60 Ranges were taken from the National Kidney Disease Education Program and the [facility] Kid[facility] Foundation literature.Reference ranges:60 or greater: Cweckt44-03 ( for 3 consecutive months): Chronic kidney disease 15 or less: Kidney failureCorpus Christi Medical Center Bay AreaGlucose lhdcsrxgpoc9697-23-49 05:40:00* Test Item Value Reference Range Interpretation Comments Glucose Level (test code = RUK1916) 90 mg/dL 74-118 [facility] or plasma calcium measurement (mass/volume)2020-01-10 05:40:00* Test Item Value Reference Range Interpretation Comments Calcium Level (test code = 66198-5) 8.6 mg/dL 8.4-10.2 [facility]ererum or plasma total bilirubin measurement (mass/volume)2020-01-10 05:40:00* Test Item Value Reference Range Interpretation Comments Total Bilirubin (test code = 1975-2) 0.5 mg/dL 0.2-1.2 [facility] AreaFluoroscopic procedure less than one hour ormeivrh0303-71-17 05:40:00* Test Item Value Reference Range Interpretation Comments Aspartate Amino Transf (AST/SGOT) (test code = Aspartate Amino Transf (AST/SGOT)) 14 [IU]/L 5-34 [facility]ererum or plasma alanine aminotransferase measurement (enzymatic activity/volume)2020-01-10 05:40:00* Test Item Value Reference Range Interpretation Comments Alanine Aminotransferase (ALT/SGPT) (test code = 1742-6) 8 [IU]/L 0-55 [facility] or plasma protein measurement (mass/volume)2020-01-10 05:40:00* Test Item Value Reference Range Interpretation Comments Total Protein (test code = 2885-2) 6.4 g/dL 6.5-8.1 [facility] or plasma albumin measurement (mass/volume)2020-01-10 05:40:00* Test Item Value Reference Range Interpretation Comments Albumin (test code = 1751-7) 2.8 g/dL 3.5-5.0 [facility] AreaPlasma globulin measurement (mass/volume) 2020-01-10 05:40:00* Test Item Value Reference Range Interpretation Comments Globulin (test code = 06326-3) 3.6 g/dL 2.3-3.5 [facility] or plasma albumin/globulin mass tropu6254-88-93 05:40:00* Test Item Value Reference Range Interpretation Comments Albumin/Globulin Ratio (test code = 1759-0) 0.8 0.8-2.0 [facility]ere[facility] or plasma alkaline phosphatase measurement (enzymatic activity/volume)2020-01-10 05:40:00* Test Item Value Reference Range Interpretation Comments Alkaline Phosphatase (test code = 6768-6) 56 [IU]/L 40-150 [facility] AreaProthrombin time (PT) in platelet poor plasma by coagulation ncwjw4283-26-89 11:43:00* Test Item Value Reference Range Interpretation Comments Prothrombin Time (test code = 5902-2) 13.6 s 11.9-14.5 [facility] AreaINR in Platelet poor plasma by Coagulation vdtmr4071-97-61 11:43:00* Test Item Value Reference Range Interpretation Comments Prothromb Time International Ratio (test code = 6301-6) 0.99 Oral Anticoagulant Therapy INR Values:1. Low Intensity Therapy 1.5 - 2.02 . Moderate Intensity Therapy 2.0 - 3.03. High Intensity Therapy(1) 2.5 - 3. 54. High Intensity Therapy(2) 3.0 - 4.05. Panic Value INR > 5.0 [facility]ererum or plasma creatine kinase measurement (enzymatic activity/volume)2020-01-09 11:43:00* Test Item Value Reference Range Interpretation Comments Creatine Kinase (test code = 2157-6) 24 [IU]/L 29-168 [facility]ererum or plasma creatine kinase MB measurement (mass/volume)2020-01-09 11:43:00* Test Item Value Reference Range Interpretation Comments Creatine Kinase MB (test code = 09588-8) 0.90 ng/mL 0-5.0 [facility] AreaTroponin I measurement by highly sensitive enzyme qqxphjvaqrx1574-81-87 11:43:00* Test Item Value Reference Range Interpretation Comments Troponin I (test code = 29222-8) 0.015 ng/mL 0-0.300 [facility] AreaDifferential Total Cells Counted 2019-06-01 09:32:00* Test Item Value Reference Range Interpretation Comments Differential Total Cells Counted (test code = Dhaval tial Total Cells Counted) 100 [facility] AreaNeutrophils % (Manual)2019-06-01 09:32:00 * Test Item Value Reference Range Interpretation Comments Neutrophils % (Manual) (test code = 43987-5) 85 40-74 H [facility] AreaLymphocytes % (Manual)2019-06-01 09:32:00 * Test Item Value Reference Range Interpretation Comments Lymphocytes % (Manual) (test code = 737-7) 11 19-48 L [facility] AreaMonocytes % (Manual)2019-06-01 09:32:00* Test Item Value Reference Range Interpretation Comments Monocytes % (Manual) (test code = 744-3) 3 3.4-9.0 L [facility] AreaEosinophils % (Manual)2019-06-01 09:32:00 * Test Item Value Reference Range Interpretation Comments Eosinophils % (Manual) (test code = 714-6) 1 0-7 [facility] AreaPlatelet Nljffvwc3269-97-00 09:32:00* Test Item Value Reference Range Interpretation Comments Platelet Estimate (test code = 46591-7) ADEQUATE [facility] AreaPlatelet Morphology Tgxwlvq4873-75-31 09:32:00* Test Item Value Reference Range Interpretation Comments Platelet Morphology Comment (test code = 21436-6) NORMAL [facility] AreaPoikilocytosis2020-03-11 09:32:00* Test Item Value Reference Range Interpretation Comments Poikilocytosis (test code = 779-9) SLIGHT [facility] AreaAnisocytosis2020-03-11 09:32:00* Test Item Value Reference Range Interpretation Comments Anisocytosis (test code = 702-1) SLIGHT [facility] AreaRed Cell Morphology Ieodxot7601-07-38 09:32:00* Test Item Value Reference Range Interpretation Comments Red Cell Morphology Comment (test code = 6742-1) NORMAL [facility] Centerodium Yzusm0596-92-67 06:30:00* Test Item Value Reference Range Interpretation Comments Sodium Level (test code = 2951-2) 135 136-145 L [facility] AreaPotassium Iflnf2087-18-78 06:30:00* Test Item Value Reference Range Interpretation Comments Potassium Level (test code = 2823-3) 3.9 3.5-5.1 [facility] AreaChloride Imhqu3117-93-82 06:30:00* Test Item Value Reference Range Interpretation Comments Chloride Level (test code = 2075-0) 101 98-107 [facility] AreaCarbon Dioxide Jflsr1111-26-76 06:30:00* Test Item Value Reference Range Interpretation Comments Carbon Dioxide Level (test code = 2028-9) 27 22-29 [facility] AreaAnion Qmf5959-79-68 06:30:00* Test Item Value Reference Range Interpretation Comments Anion Gap (test code = 95221-8) 10.9 8-16 [facility] AreaBlood Urea Cwtkvgwe1639-21-02 06:30:00* Test Item Value Reference Range Interpretation Comments Blood Urea Nitrogen (test code = 3094-0) 20 7-26 [facility] AreaCreatinine2020-03-11 06:30:00* Test Item Value Reference Range Interpretation Comments Creatinine (test code = 2160-0) 5.23 0.57-1.11 H [facility] AreaBUN/Creatinine Yizsu4996-31-75 06:30:00* Test Item Value Reference Range Interpretation Comments BUN/Creatinine Ratio (test code = 3097-3) 4 6-25 L [facility] AreaEstimat Glomerular Filtration Rate 2019-06-01 06:30:00* Test Item Value Reference Range Interpretation Comments Estimat Glomerular Filtration Rate (test code = 256767715) 8 >60 L Ranges were taken from the National Kidney Disease Education Program and the [facility] Kidney Foundation literature.Reference ranges:60 or greater: Xvirgy86-13 ( for 3 consecutive months): Chronic kidney disease 15 or less: Kidney failureCorpus Christi Medical Center Bay AreaGlucose Xqtbt1743-41-95 06:30:00* Test Item Value Reference Range Interpretation Comments Glucose Level (test code = HWT6053) 105 74-118 [facility] AreaCalcium Cdfmq6244-92-76 06:30:00* Test Item Value Reference Range Interpretation Comments Calcium Level (test code = 72590-0) 8.8 8.4-10.2 [facility] AreaMagnesium Gggjm2335-98-48 06:30:00* Test Item Value Reference Range Interpretation Comments Magnesium Level (test code = 12799-9) 1.8 1.3-2.1 [facility] AreaTotal Fjvfvmmpm3091-47-28 06:30:00* Test Item Value Reference Range Interpretation Comments Total Bilirubin (test code = 1975-2) 1.3 0.2-1.2 H [facility] AreaAspartate Amino Transf (AST/SGOT) 2019-06-01 06:30:00* Test Item Value Reference Range Interpretation Comments Aspartate Amino Transf (AST/SGOT) (test code = Aspartate Amino Transf (AST/SGOT)) 96 5-34 H [facility] AreaAlanine Aminotransferase (ALT/SGPT) 2019-06-01 06:30:00* Test Item Value Reference Range Interpretation Comments Alanine Aminotransferase (ALT/SGPT) (test code = 1742-6) 21 0-55 [facility] AreaTotal Totislj5199-44-36 06:30:00* Test Item Value Reference Range Interpretation Comments Total Protein (test code = 2885-2) 6.1 6.5-8.1 L [facility] AreaAlbumin2020-03-11 06:30:00* Test Item Value Reference Range Interpretation Comments Albumin (test code = 1751-7) 2.3 3.5-5.0 L [facility] AreaGlobulin2020-03-11 06:30:00* Test Item Value Reference Range Interpretation Comments Globulin (test code = 48896-0) 3.8 2.3-3.5 H [facility] AreaAlbumin/Globulin Srvgi5772-16-55 06:30:00 * Test Item Value Reference Range Interpretation Comments Albumin/Globulin Ratio (test code = 1759-0) 0.6 0.8-2.0 L [facility] AreaAlkaline Fdwrztnrwso4297-26-57 06:30:00* Test Item Value Reference Range Interpretation Comments Alkaline Phosphatase (test code = 6768-6) 864 40-150 H [facility] AreaWhite Blood Ciebn6170-35-77 06:04:00* Test Item Value Reference Range Interpretation Comments White Blood Count (test code = 6690-2) 20.09 4.8-10.8 H [facility] AreaRed Blood Bqitn9760-92-98 06:04:00* Test Item Value Reference Range Interpretation Comments Red Blood Count (test code = 789-8) 4.14 3.6-5.1 [facility] AreaHemoglobin2020-03-11 06:04:00* Test Item Value Reference Range Interpretation Comments Hemoglobin (test code = 61468-1) 12.1 12.0-16.0 [facility] AreaHematocrit2020-03-11 06:04:00* Test Item Value Reference Range Interpretation Comments Hematocrit (test code = 4544-3) 37.3 34.2-44.1 [facility] AreaMean Corpuscular Kxkgna9748-55-58 06:04:00* Test Item Value Reference Range Interpretation Comments Mean Corpuscular Volume (test code = 787-2) 90.1 81-99 [facility] AreaMean Corpuscular Ceohztyssb9814-21-96 06:04:00* Test Item Value Reference Range Interpretation Comments Mean Corpuscular Hemoglobin (test code = 785-6) 29.2 28-32 [facility] AreaMean Corpuscular Hemoglobin Concent 2019-06-01 06:04:00* Test Item Value Reference Range Interpretation Comments Mean Corpuscular Hemoglobin Concent (test code = 786-4) 32.4 31-35 [facility] AreaRed Cell Distribution Ecqwb8001-75-35 06:04:00* Test Item Value Reference Range Interpretation Comments Red Cell Distribution Width (test code = 96482-0) 16.9 11.7 -14.4 H [facility] AreaPlatelet Lfhzm7009-66-98 06:04:00* Test Item Value Reference Range Interpretation Comments Platelet Count (test code = 777-3) 331 140-360 [facility] AreaNeutrophils (%) (Auto)2019-06-01 06:04:00 * Test Item Value Reference Range Interpretation Comments Neutrophils (%) (Auto) (test code = 58394-9) 76.7 38.7-80.0 [facility] AreaLymphocytes (%) (Auto)2019-06-01 06:04:00 * Test Item Value Reference Range Interpretation Comments Lymphocytes (%) (Auto) (test code = 736-9) 10.1 18.0-39.1 L [facility] AreaMonocytes (%) (Auto)2019-06-01 06:04:00* Test Item Value Reference Range Interpretation Comments Monocytes (%) (Auto) (test code = 5905-5) 9.4 4.4-11.3 [facility] AreaEosinophils (%) (Auto)2019-06-01 06:04:00 * Test Item Value Reference Range Interpretation Comments Eosinophils (%) (Auto) (test code = 713-8) 2.2 0.0-6.0 [facility] AreaBasophils (%) (Auto)2019-06-01 06:04:00* Test Item Value Reference Range Interpretation Comments Basophils (%) (Auto) (test code = 706-2) 0.5 0.0-1.0 [facility] AreaIM GRANULOCYTES %2019-06-01 06:04:00* Test Item Value Reference Range Interpretation Comments IM GRANULOCYTES % (test code = IM GRANULOCYTES %) 1.1 0.0- 1.0 H [facility] AreaNeutrophils # (Auto)2019-06-01 06:04:00* Test Item Value Reference Range Interpretation Comments Neutrophils # (Auto) (test code = 751-8) 15.4 2.1-6.9 H [facility] AreaLymphocytes # (Auto)2019-06-01 06:04:00* Test Item Value Reference Range Interpretation Comments Lymphocytes # (Auto) (test code = 00484-6) 2.0 1.0-3.2 [facility] AreaMonocytes # (Auto)2019-06-01 06:04:00* Test Item Value Reference Range Interpretation Comments Monocytes # (Auto) (test code = 742-7) 1.9 0.2-0.8 H [facility] AreaEosinophils # (Auto)2019-06-01 06:04:00* Test Item Value Reference Range Interpretation Comments Eosinophils # (Auto) (test code = 711-2) 0.5 0.0-0.4 H [facility] AreaBasophils # (Auto)2019-06-01 06:04:00* Test Item Value Reference Range Interpretation Comments Basophils # (Auto) (test code = 704-7) 0.1 0.0-0.1 [facility] AreaAbsolute Immature Granulocyte (auto 2019-06-01 06:04:00* Test Item Value Reference Range Interpretation Comments Absolute Immature Granulocyte (auto (ortega t code = Absolute Immature Granulocyte (auto) 0.23 0-0.1 H [facility] AreaFluoroscopic procedure less than one hour ilvmhzgt3628-53-00 05:00:00* Test Item Value Reference Range Interpretation Comments Differential Total Cells Counted (test code = Differkari tial Total Cells Counted) 100 [facility] blood neutrophils/100 leukocytes 2019-06-01 05:00:00* Test Item Value Reference Range Interpretation Comments Neutrophils % (Manual) (test code = 56069-4) 85 % 40-74 [facility] blood lymphocytes/100 leukocytes 2019-06-01 05:00:00* Test Item Value Reference Range Interpretation Comments Lymphocytes % (Manual) (test code = 737-7) 11 % 19-48 [facility] blood monocytes/100 leukocytes 2019-06-01 05:00:00* Test Item Value Reference Range Interpretation Comments Monocytes % (Manual) (test code = 744-3) 3 % 3.4-9.[address] [facility] CenterManual blood eosinophil count as percentage of total shbkvmsrjr8518-62-35 05:00:00* Test Item Value Reference Range Interpretation Comments Eosinophils % (Manual) (test code = 714-6) 1 % 0-7 [facility] AreaBlood platelets count by estimate (number/volume)2019-06-01 05:00:00* Test Item Value Reference Range Interpretation Comments Platelet Estimate (test code = 60916-4) ADEQUATE [facility] AreaPlatelet apytyrwpfn2615-31-43 05:00:00* Test Item Value Reference Range Interpretation Comments Platelet Morphology Comment (test code = 66200-7) NORMAL [facility] AreaBlood poikilocytosis detection by light jfprrrgpgx4852-36-48 05:00:00* Test Item Value Reference Range Interpretation Comments Poikilocytosis (test code = 779-9) SLIGHT [facility] AreaBlood anisocytosis detection by light iabdhbgoni4666-45-49 05:00:00* Test Item Value Reference Range Interpretation Comments Anisocytosis (test code = 702-1) SLIGHT [facility] Area[facility] jsazycyxfw2163-03-09 05:00:00* Test Item Value Reference Range Interpretation Comments Red Cell Morphology Comment (test code = 6742-1) NORMAL [facility] plasma magnesium measurement (mass/volume)2019-06-01 05:00:00* Test Item Value Reference Range Interpretation Comments Magnesium Level (test code = 76144-1) 1.8 mg/dL 1.3-2.1 [facility] AreaTUNNELLED CVC INSERT W/O [id number] 15:05:00 [facility] [address] [address] Patient Name: GABBIE TOBIN MR #: [id number] : 1955 Age/Sex: 63/F Req #: [id number] Adm Physician: KYLEE ACOSTA MD Ordered by: USMAN MARIE, PAPO MARIE Report #: [id number] Location: [facility] Room/Bed: IMCU 187-1 Procedure: [id number] IR/TUNNELLED CVC INSERT W/O PORT Exam Date: Exam T ervin: REPORT STATUS: Signed Tunn eled dialysis catheter exchange. Histo ry: Renal failure, malfunctioning indwelling left IJ TTC. Modality: Sonography and fluoroscopy. Sedation: Versed 1.5 mg and fentanyl 75 mcg was g iven intravenously for conscious sedation. Vital signs were monitored through out the procedure by a nurse, and remained stable. Physician intra-service kade e was 20. Parking Lot Attendant And Cashier: MD Larry. Funeral Location Manager : None. Approach: Via indwe lling left IJ [...] for performing radiologist and scrub technologist. Initial residential case manager images demonstrate indwelling left IJ tunnel dialysis catheter tip terminating within the proximal SVC. 1% lidocaine was used for local anesthesia. A 0.035 Amplatz wire was advanced through the indwelling catheter into the IVC. The existing catheter was removed over wire. A new 14.5 Togolese 28 cm tip the cuff catheter was [...] By: ART JUAREZ MD 09 Transcribed By: ALEXAI on 05/31/191509 COPY TO: PAPO MARY Bedside Glucose 2019-05-30 16:22:00* Test Item Value Reference Range Interpretation Comments Bedside Glucose (test code = 48666-0) 88 70-120 Meter ID: [id number] [facility]i [facility] AreaUrine Culture 2019-05-30 07:07:00* Test Item Value Reference Range Interpretation Comments Urine Culture (test code = 630-4) No Result Data Provided [facility] AreaPhosphorus Bhjaq5114-42-04 06:16:00* Test Item Value Reference Range Interpretation Comments Phosphorus Level (test code = MRJ7359) 3.2 2.3-4.7 [facility] AreaProthrombin Cari5972-25-32 06:12:00* Test Item Value Reference Range Interpretation Comments Prothrombin Time (test code = 5902-2) 12.7 11.9-14.5 [facility] AreaProthromb Time International Ratio 2019-05-30 06:12:00* Test Item Value Reference Range Interpretation Comments Prothromb Time International Ratio (test code = 6301-6) 0.90 Oral Anticoagulant Therapy INR Values:1. Low Intensity Therapy 1.5 - 2.02 . Moderate Intensity Therapy 2.0 - 3.03. High Intensity Therapy(1) 2.5 - 3. 54. High Intensity Therapy(2) 3.0 - 4.05. Panic Value INR > 5.0 [facility] AreaActivated Partial Thromboplast Time 2019-05-30 06:12:00* Test Item Value Reference Range Interpretation Comments Activated Partial Thromboplast Time (test code = 30162-4) 36.0 23.8-35.5 H [facility] AreaActivated partial thromboplastin time (aPTT) in platelet poor plasma by coagulation jatim1083-25-14 05:30:00* Test Item Value Reference Range Interpretation Comments Activated Partial Thromboplast Time (test code = 25036-6) 36.0 s 23.8-35.5 [facility] AreaPhosphorus rbxmynyhcin5742-17-07 05:30:00 * Test Item Value Reference Range Interpretation Comments Phosphorus Level (test code = BET9131) 3.2 mg/dL 2.3-4.7 [facility] AreaCHEST SINGLE (PORTABLE)2019-05-29 10:13:00 [facility] [address] [address] Patient Name: GABBIE TOBIN MR #: [id number] : 1955 Age/Sex: 63/F Req #: [id number] Adm Physician: KYLEE ACOSTA MD Ordered by: BHAVESH ABBASI MD Report #: [id number] Location: ICU Room/Bed: ICU [facility] Procedure: [id number] DX /CHEST SINGLE (PORTABLE) Exam Date: 05/29/19 [...] 05/29/19 1016 COPY TO: BHAVESH ABBASI MD [facility] PLMT OR LHX3932-96-40 18:17:[address] [address] Patient Name: GABBIE TOBIN MR #: [id number] : 1955 Age/Sex: 63/F Req #: [id number] Adm Physician: KYLEE ACOSTA MD Ordered by: USMAN MARIE, PAPO MAIRE Report #: [id number] Location: ICU Room/Bed: ICU [facility] Procedure: 6402-1191 IR/FLORINDA [facility] PLMT OR REM Exam Date: Exam Time: REPORT STATUS: Signed Mukul e and Time: 05/28/2019 Procedure: Right internal jugular temporary hemodialys is catheter placement mash filter press operator: Dr. Briceño Pre-operative shyam gnosis: End-stage [...] loss: Minimal Sp ecimens: None Implants: 13 Togolese 15 cm triple-lumen hi flow central venous [...] Then under continuous sonographic guidance, an 18-gau code-laboration singlewall needle was used to access the right internal jugular vein. A per manent sonographic image was stored in the medical record. A 0.0 3 5-in. wire was advanced centrally into the IVC under fluoroscopic guidance. The needle wa s removed over the wire and the tract was dilated. Then a 13 Togolese 15 cmtri ple-lumen central high flow venous [...] vein IMPRESSION: Successful placement of a 13 Togolese, 15 cm triple-lumen hi flow central venous catheter by a right internal jugular approach under sonographic and fluoroscopic guidance. Signed by: Dr. Edith Briceño M.D. on 05/28/2019 6:20 PM Dictated By: EDITH Craven 19 Transcribed By: ALEXIA on 05/28/191819 COPY TO: PAPO MARY NON-TUNNELLED CVC CATH YFRCPEN6022-37-22 18:17:00 [address] [address] Patient Name: GABBIE TOBIN MR #: [id number] : 1955 Age/Sex: 63/F Req #: [id number] Adm Physician: KYLEE ACOSTA MD Ordered by: USMAN MARIE, PAPO MARIE Report #: [id number] Location: ICU Room/Bed: [address] [address] Procedure: IR/NON-TUNNELLED CVC CATH PLACMNT Exam Date: Exam Time: REPORT STATUS: Signed Mukul e and Time: 05/28/2019 Procedure: Right internal jugular temporary hemodialys is catheter placement mash filter press operator: Dr. Briceño Pre-operative shyam gnosis: End-stage [...] loss: Minimal Sp ecimens: None Implants: 13 Togolese 15 cm triple-lumen hi flow central venous [...] the tract was dilated. Then a 13 Togolese 15 cmtri ple-lumen central high flow venous [...] vein IMPRESSION: Successful placement of a 13 Togolese, 15 cm triple-lumen hi flow central venous catheter by a right internal jugular approach under sonographic and fluoroscopic guidance. Signed by: Dr. Edith Briceño M.D. on 05/28/2019 6:20 PM Dictated By: EDITH Craven 19 Transcribed By: ALEXIA on 05/28/191819 COPY TO: PAPO MARY IR CONSULT 2019-05-28 18:17:00 [address] [address] Patient Name: GABBIE TOBIN MR #: [id number] : 1955 Age/Sex: 63/F Req #: [id number] Adm Physician: KLYEE ACOSTA MD Ordered by: PAPO MARY MD, MD Report #: [id number] Location: ICU Room/Bed: ICU 193 Procedure: [id number] DX/IR CONSULT Exam Date: Exam Time: REPORT STATUS: Signed Date and Time: 05/28/2019 Procedure: Right internal jugular temporary hemodialysis catheter placemen t mash filter press operator: Dr. Briceño Pre-operative diagnosis: End-stage re nal disease Post-operative diagnosis: End-stage renal disease Conscious [...] loss: Minimal Specimens: None Impl ants: 13 Togolese 15 cm triple-lumen hi flow central venous [...] the tract was dilated. Then a 13 Togolese 15 cmtriple-lumen central hi gh flow venous [...] vein IMPRESSION: Successful placement of a 13 Togolese, 15 cm triple -lumen hi flow central venous catheter by a right internal jugular approach un kalia sonographic and fluoroscopic guidance. Signed by: Dr. Edith Briceño M.D. on 05/28/2019 6:20 PM Dictated By: EDITH BRICEÑO MD Electronically Si gned By: EDITH BRICEÑO MD on 05/28/191819 Transcribed By: ALEXIA on 05/28/191819 COPY TO: PAPO MARY GUIDANCE FOR VASCULAR ACCES 2019-05-28 18:17:00 [address] [address] Patient Name: GABBIE TOBIN MR #: [id number] : 1955 Age/Sex: 63/F Req #: [id number] Adm Physician: KYLEE ACOSTA MD Ordered by: PAPO MARY MD, MD Report #: [id number] Location: ICU Room/Bed: ICU [facility] Procedure: [id number] / GUIDANCE FOR VASCULAR ACCES Exam Date: Exam Time: REPORT STATUS: Signed Mukul e and Time: 05/28/2019 Procedure: Right internal jugular temporary hemodialys is catheter placement mash filter press operator: Dr. Briceño Pre-operative shyam gnosis: End-stage [...] loss: Minimal Sp ecimens: None Implants: 13 Togolese 15 cm triple-lumen hi flow central venous [...] the tract was dilated. Then a 13 Togolese 15 cmtri ple-lumen central high flow venous [...] vein IMPRESSION: Successful placement of a 13 Togolese, 15 cm triple-lumen hi flow central venous catheter by a right internal jugular approach under sonographic and fluoroscopic guidance. Signed by: Dr. Edith Briceño M.D. on 05/28/2019 6:20 PM Dictated By: EDITH Craven 19 Transcribed By: ALEXIA on 05/28/191819 COPY TO: PAPO MARY [facility] SINGLE (PORTABLE)2019-05-26 18:53:00 [address] [address] Patient Name: GABBIE TOBIN MR #: [id number] : 1955 Age/Sex: 63/F Req #: [id number] Adm Physician: KYLEE ACOSTA MD Ordered by: USMAN MARIE, PAPO MARIE Report #: [id number] Location: ICU Room/Bed: ICU [facility] Procedure: [id number] DX/CHEST SINGLE (PORTABLE) Exam Date: 05/26/19 Exam Time: 1700 REPORT STATUS: Signed EXAMINATION: CHEST SINGLE (PORTABLE) INDICATION: SOB COMPARISON : 05/23/2019 FINDINGS: AP view TUBES and LINES: [...] MD on 05/26/2019 6:55 PM Dictated By: YANET CARMONA MD 54 Transcribed By: ALEXIA on 05/26/191854 COPY TO: PAPO MARY Creatine Kinase HF5701-88-77 16:32:00* Test Item Value Reference Range Interpretation Comments Creatine Kinase MB (test code = 17219-1) 1.30 0-5.0 [facility] AreaTroponin Z1645-24-33 16:32:00* Test Item Value Reference Range Interpretation Comments Troponin I (test code = IQQ1585) 0.239 0-0.300 [facility] AreaCreatine Vfcdnv6862-98-53 16:16:00* Test Item Value Reference Range Interpretation Comments Creatine Kinase (test code = 2157-6) 11 29-168 L [facility] AreaClostridium Difficile Toxin A & B 2019-05-26 15:12:00* Test Item Value Reference Range Interpretation Comments Clostridium Difficile Toxin A & B (test code = 096261251) NEGATIVE NEGATIVE Testing on stool aspirate specimens is outside diesel electrician claims since specime n type not validated on this assay.[facility] AreaCT ABDOMEN/PELVIS MS9370-13-68 15:21:00 [facility] [address] [address] Patient Name: GABBIE TOBIN MR #: [id number] : 1955 Age/Sex: 63/F Req #: [id number] Adm Physician: KYLEE ACOSTA MD Ordered by: MARY ELLEN ALCARAZ MD Report #: [id number] Location: ICU Room/Bed: ICU 193 Procedure: [id number] C T/CT ABDOMEN/PELVIS WO Exam Date: 05/25/19 [...] osseous injury. Bilateral gluteal injection granulomas. IMPRESSION: N o acute findings in the abdomen or pelvis. Signed by: Patricia Subramanian MD on 05/25/2019 3:28 PM Dictated By: PATRICIA SUBRAMANIAN MD 27 Transcribed By: ALEXIA on 05/25/191527 PLANT ANATOMIST Y TO: MARY ELLEN ALCARAZ MD Clostridium difficile A and B toxin assay 2019-05-25 11:00:00* Test Item Value Reference Range Interpretation Comments Clostridium Difficile Toxin A & B (test code = 551936062) NEGATIVE NEGATIVE Testing on stool aspirate specimens is outside diesel electrician claims since specime n type not validated on this assay.[facility] AreaLactic Acid Cxbts7795-36-19 09:49:00* Test Item Value Reference Range Interpretation Comments Lactic Acid Level (test code = Lactic Acid Level) 1.6 0.5- 2.0 [facility] AreaFluoroscopic procedure less than one hour wubiqait7700-14-30 08:15:00* Test Item Value Reference Range Interpretation Comments Lactic Acid Level (test code = Lactic Acid Level) 1.6 mmol/L 0.5- 2.0 [facility] AreaBacterial urine gvcvbyk7645-34-75 14:06:00* Test Item Value Reference Range Interpretation Comments Urine Culture (test code = 630-4) ENTEROCOCCUS FAECALIS-VRE [facility] AreaCHEST SINGLE (PORTABLE)2019-05-23 14:47:00 [address] [address] Patient Name: GABBIE TOBIN MR #: [id number] : 1955 Age/Sex: 63/F Req #: [id number] Adm Physician: KYLEE ACOSTA MD Ordered by: KYLEE ACOSTA MD Report #: [id number] Location: MED/SURG Room/Bed: 112-1 Procedure: 6517-1791 D X/CHEST SINGLE (PORTABLE) Exam Date: 05/23/19 [...] on 05/23/2019 2:48 PM Dictated By: YAYO Craven 1448 Transcribed B y: ALEXIA on 05/23/19 1448 COPY TO: KYLEE ACOSTA MD MOD SEDATE ADD 15 MIN>8DZY9831-53-16 11:39:00 [address] [address] Patient Name: GABBIE TOBIN MR #: [id number] : 1955 Age/Sex: 63/F Req #: [id number] Adm Physician: KYLEE ACOSTA MD Ordered by: YAYO MATUTE MD Report #: [id number] Location: ICU Room/Bed: ICU 193-1 Procedure: [id number] DX/MOD SEDATE ADD 15 MIN>5YRS Exam Date: 05/23/19 Exam Time: 1107 REPORT STATUS: Signed Conversion of a nontunneled to tunneled dialysis catheter, 05/23/2019. History: Renal failure. Modality: Fluoroscopy. Sedation: Versed 1.0 mg and fentanyl 50 mcg was given intravenously for conscious sedation. Vital signs were monitored throughout the procedure by a nurse, and remained stable. Physician intra-service time was 15 minutes. Parking Lot Attendant And Cashier: Giovani. Funeral Location Manager: None. Approach: Left internal jugular vein Estimated [...] by blunt dissection. A 23 cm 14.5 Togolese cuffed dialysis catheter was brought through the [...] MATUTE MD 112 Transcribed By: ALEXIA on 05/25/194 COPY TO: YAYO MATUTE MD MOD SEDATE ADD 15 MIN >3VYV9309-55-60 11:39:00 [address] [address] Patient Name: GABBIE TOBIN MR #: [id number] : 1955 Age/Sex: 63/F Req #: [id number] [facility] Physician: KYLEE ACOSTA MD Ordered by: YAYO MATUTE MD Report #: [id number] Location: ICU Room/Bed: ICU [facility] Procedure: 43 DX/MOD SEDATE ADD 15 MIN>5YRS Exam Date: 05/23/19 Exam Time: 1046 REPORT STATUS: Signed Conversion of a nontunneled to tunneled dialysis catheter, 05/23/2019. History: Renal failure. Modality: Fluoroscopy. Sedation: Versed 1.0 mg and fentanyl 50 mcg was given intravenously for conscious sedation. Vital signs were monitored throughout the procedure by a nurse, and remained stable. Physician intra-service time was 15 minutes. Parking Lot Attendant And Cashier: Giovani. Funeral Location Manager: None. Approach: Left internal jugular vein Estimated [...] by blunt dissection. A 23 cm 14.5 Togolese cuffed dialysis catheter was brought through the [...] MATUTE MD 112 Transcribed By: ALEXIA on 05/25/191123 COPY TO: YAYO MATUTE MD MOD SEDATE INITIAL >5 SBZ2485-75-21 11:39:00 [address] [address] Patient Name: GABBIE TOBIN MR #: [id number] : 1955 Age/Sex: 63/F Req #: [id number] [facility] Physician: KYLEE ACOSTA MD Ordered by: YAYO MATUTE MD Report #: [id number] Location: ICU Room/Bed: ICU [facility] Procedure: 42 DX/MOD SEDATE INITIAL >5 YRS Exam Date: 05/23/19 Exam Time: 1030 REPORT STATUS: Signed Conversion of a nontunneled to tunneled dialysis catheter, 05/23/2019. History: Renal failure. Modality: Fluoroscopy. Sedation: Versed 1.0 mg and fentanyl 50 mcg was given intravenously for conscious sedation. Vital signs were monitored throughout the procedure by a nurse, and remained stable. Physician intra-service time was 15 minutes. Parking Lot Attendant And Cashier: Giovani. Funeral Location Manager: None. Approach: Left internal jugular vein Estimated [...] by blunt dissection. A 23 cm 14.5 Togolese cuffed dialysis catheter was brought through the [...] on 05/25/191123 COPY TO: YAYO MATUTE MD OR YVC2988-28-92 11:39:00 [address] [place] [address] Patient Name: GABBIE TOBIN MR #: [id number] : 1955 Age/Sex: 63/F Req #: [id number] Adm Physician: KYLEE ACOSTA MD Ordered by: YOVANI SANDRA MD Report #: [id number] Location: ICU Room/Bed: ICU [facility] Procedure: [id number] IR/ FLORINDA SPAULDING PLMT OR REM Exam Date: 05/23/19 E [...] Physician intra-service time was 15 mi nutes. Parking Lot Attendant And Cashier: Giovani. Funeral Location Manager: None. Approach: Left internal jug ular vein [...] by blunt dissection. A 23 cm 14.5 Togolese cuffed dialysis catheter was brought through the [...] were monitored throughout the procedure by a nurselaisha remained stable. The patient tolerated the procedure well and left the depa rtment in the same condition. Results: Spot radiograph of the chest demons trates the new dialysis catheter to lie in the expected position with its tip overlying the superior right atrium. Impression: Successful, uncomplicated conversion of a nontunneled lef t internal jugular to a tunneled dialysis catheter. Signed by: Yayo Matute MD on 05/23/2019 11:40 AM Dictated By: YAYO MATUTE MD Electro nically Signed By: YAYO MATUTE MD on 05/25/191123 Transcribed By: ALEXIA on 05/25/191123 COPY TO: YOVANI SANDRA MD IR XABOEZR3319-33-41 11:39:00 [address] [place] [address] Patient Name: GABBIE TOBIN MR #: [id number] : 1955 Age/Sex: 63/F Req #: [id number] Adm Physician: KYLEE ACSOTA MD Ordered by: YOVANI SANDRA MD Report #: [id number] Location: ICU Room/Bed: ICU [facility] Procedure: [id number] DX/ IR CONSULT Exam Date: Exam Time: REPORT STATUS: Signed Conversion of a nontunneled to tunneled dialysis catheter, 05/23/2019. History: Renal failure. Modality: Fluoroscopy. Sedation: Ve rsed 1.0 mg and fentanyl 50 mcg was given intravenously for conscious sedation . Vital signs were monitored throughout the procedure by a nurse, and remaine d stable. Physician intra-service time was 15 minutes. [employer] Installer: Giovani. Funeral Location Manager: None. Approach: Left internal jugular vein Estimated [...] by blunt dissection. A 23 cm 14.5 Togolese cuffed dialysis catheter was brought through the [...] tolerated the procedure well and left the depa rtment in the same condition. Results: Spot radiograph of the chest demons trates the new dialysis catheter to lie in the expected position with its tip overlying the superior right atrium. Impression: Successful, uncomplicated conversion of a nontunneled lef t internal jugular to a tunneled dialysis catheter. Signed by: Yayo Matute MD on 05/23/2019 11:40 AM Dictated By: YAYO MATUTE MD Electro nically Signed By: YAYO MATUTE MD on 05/25/19 1124 Transcribed By: ALEXIA on 05/25/19 1124 COPY TO: YOVANI SANDRA MD TUNNELLED CVC INSERT W/O [id number] 11:39:00 [place] [address] Patient Name: GABBIE TOBIN MR #: [id number] : 1955 Age/Sex: 63/F Req #: [id number] Adm Physician: KYLEE ACOSTA MD Ordered by: YOVANI SANDRA MD Report #: [id number] Location: ICU Room/Bed: ICU 193-1 Procedure: 0775-0331 IR/ TUNNELLED CVC INSERT W/O PORT Exam Date: Exam Time: REPORT STATUS: Signed Conversi on of a nontunneled to tunneled dialysis catheter, 05/23/2019. History: Renal failure. Modality: Fluoroscopy. Sedation: Versed 1.0 mg and fentanyl 50 mcg was given intravenously for conscious sedation. Vital signs were monitored throughout the procedure by a nurse, and remained stable. Physician intra-service time was 15 minutes. Parking Lot Attendant And Cashier: Giovani. Funeral Location Manager: None. Approach: Left internal jugular vein Estimated [...] by blunt dissection. A 23 cm 14.5 Togolese cuffed dialysis catheter was brought through the [...] tolerated the procedure well and left the depa rtment in the same condition. Results: Spot radiograph of the chest demons trates the new dialysis catheter to lie in the expected position with its tip overlying the superior right atrium. Impression: Successful, uncomplicated conversion of a nontunneled lef t internal jugular to a tunneled dialysis catheter. Signed by: Yayo Matute MD on 05/23/2019 11:40 AM Dictated By: YAYO MATUTE MD Electro nically Signed By: YAYO MATUTE MD on 05/25/191123 Transcribed By: ALEXIA on 05/25/191123 COPY TO: YOVANI SANDRA MD Blood Kerkqlo5974-66-22 05:06:00* Test Item Value Reference Range Interpretation Comments Blood Culture (test code = 88131624) NO GROWTH AFTER 5 DAYS, FINAL REPORT [facility] AreaReactive Xmrrczswnqj0637-11-07 10:14:00* Test Item Value Reference Range Interpretation Comments Reactive Lymphocytes (test code = 93541-7) 2 [facility] AreaBlood lymphocytes variant count (number/volume)2019-05-19 05:35:00* Test Item Value Reference Range Interpretation Comments Reactive Lymphocytes (test code = 11836-7) 2 [facility] AreaHepatitis Be Yfvensnc4600-25-48 14:54:00 * Test Item Value Reference Range Interpretation Comments Hepatitis Be Antibody (test code = 70386-0) Negative Negative Performed at: [address] [id number] [employer] Office Technology Instructor: Zee Kenny MD, Phone: [phone] [facility]2019-05-18 06:17:00 [address] [place] [address] Patient Name: GABBIE TOBIN MR #: [id number] : 1955 Age/Sex: 63/F Req #: [id number] Adm Physician: PINA RUCKER MD Ordered by: BHAVESH ABBASI MD Report #: [id number] Location: ICU Room/Bed: ICU 190 Procedure: 1739-1170 DX/CHEST SINGLE (PORTABLE) Exam Date: 05/18/19 Exam [...] TO: BHAVESH ABBASI Hepatitis B Core Total Qdnepygk0636-61-97 11:32:00* Test Item Value Reference Range Interpretation Comments Hepatitis B Core Total Antibody (test code = 54658-2) Negative Negative [facility] B Surface Xrgnwcz5985-02-68 11:32:00* Test Item Value Reference Range Interpretation Comments Hepatitis B Surface Antigen (test code = 5196-1) Negative Negat ana lilia [facility] B Core IgM Woxjbiic4282-56-50 11:32:00* Test Item Value Reference Range Interpretation Comments Hepatitis B Core IgM Antibody (test code = 35583-4) Negative Ne gative Performed at: [address] [id number] Director: Pedro Smith MD, Phone: [phone] [facility] SINGLE (PORTABLE)2019-05-17 05:48:00 [facility] [address] [address] Patient Name: GABBIE TOBIN MR #: [id number] : 1955 Age/Sex: 63/F Req #: [id number] Adm Physician: PINA RUCKER MD Ordered by: BHAVESH ABBASI MD Report #: [id number] Location: ICU Room/Bed: ICU [facility] Procedure: 5639-0968 DX/CHEST SINGLE (PORTABLE) Exam Date: Exam Time: REPORT STATUS: Signed Examination : Single AP view of the chest. COMPARISON: [...] EDITH BRICEÑO MD Transcribed By: ALEXIA on 05/17/1917 COPY TO: BHAVESH ABBASI MD Qualitative serum or plasma hepatitis B virus e antibody by enzyme tsxyfiahsnz5385-71-01 16:05:00* Test Item Value Reference Range Interpretation Comments Hepatitis Be Antibody (test code = 11276-2) Negative Negative Performed at: [address] [id number] [employer] Office [employer] Instructor: Zee Kenny MD, Phone: [phone] Medical Centererum or plasma hepatitis B virus core antibody detection by lgpgzxghmiy4668-00-23 16:05:00* Test Item Value Reference Range Interpretation Comments Hepatitis B Core Total Antibody (test code = 93042-8) Negative Negative [facility] Cent[facility]rum or plasma hepatitis B virus surface antigen detection by hlvlwvtqxgv2373-61-15 16:05:00* Test Item Value Reference Range Interpretation Comments Hepatitis B Surface Antigen (test code = 5196-1) Negative Negat ana lilia [facility] Centererum or plasma hepatitis B virus core IgM antibody detection by roilwokaqlc8911-44-94 16:05:00* Test Item Value Reference Range Interpretation Comments Hepatitis B Core IgM Antibody (test code = 71465-6) Negative Ne gative Performed at: - [facility] [id number] Director: Pedro Smith MD, Phone: [phone] Christi Medical Center Bay AreaIR HHZTMVA4953-73-83 15:36:00 [facility] [address] [place] [address] Patient Name: GABBIE TOBIN MR #: [id number] : 1955 Age/Sex: 63/F Req #: [id number] Adm Physician: PINA RUCKER MD Ordered by: YOVANI SANDRA MD Report #: [id number] Location: ICU Room/Bed: ICU [facility] Procedure: [id number] D X/IR CONSULT Exam Date: Exam Time: [...] Consent: Informed consent for the procedure including risks , benefits and alternatives was obtained and time-out was performed prior to t he procedure. Preparation (MIPS): The site was prepared [...] mary rile dressing was applied. Catheter placed: Bard Trialysis Catheter size (Fr ench): 13 Catheter length (cm): 20 Catheter flush: Heparin (1000 units/mL) Catheter securement technique: Non-absorbable suture Contrast Contrast a gent: None Radiation Dose None. Ultrasound Only. Additional Details Additional description of procedure: None Equipment details: None Specimen s removed: None Estimated blood loss (mL): Less than 10 Standardized report: SIR_CVA_NonTunneledCatheter_v3 Attestation Signer name: Patricia Subramanian MD I attest that I was present for the entire procedure. I reviewed the stored i mages and agree with the report as written. Signed by: Patricia Subramanian MD on 3:38 PM Dictated By: PATRICIA SUBRAMANIAN MD 37 Transcribed By: ALEXIA on 05/16/191537 COPY TO: YOVANI SANDRA MD NON-TUNNELLED CVC CATH [id number] 15:36:00 [place] [address] Patient Name: GABBIE TOBIN MR #: [id number] : [birth year] Age/Sex: 63/F Req #: [id number] Adm Physician: PINA RUCKER MD Ordered by: YOVANI SANDRA MD Report #: [id number] Location: ICU Room/Bed: [place] [address] Procedure: I R/NON-TUNNELLED CVC CATH PLACMNT Exam Date: Exam Ti me: REPORT STATUS: Signed PROCE DURE: Non-tunneled central venous catheter placement Procedural Personnel Attending physician(s): Patricia Subramanian MD Fellow physician(s): None Resident p hysician(s): None Advanced practice provider(s): None Pre-procedure diagn [...] applied. Catheter placed: Bard Trialysis Catheter size (Togolese): 13 Catheter length (cm): 20 Catheter flush: [...] on 05/16/2019 3:38 PM Dictated By: PATRICIA miner Signed By: PATRICIA SUBRAMANIAN MD on 05/16/191537 Transcribed By: ALEXIA on 04/24 COPY TO: YOVANI SANDRA MD US GUIDANCE FOR PROCEDURE 2019-05-16 15:36:00 [place] [address] Patient Name: GABBIE TOBIN MR #: [id number] : 1955 Age/Sex: 63/F Req #: [id number] Adm Physician: PINA RUCKER MD Ordered by: YOVANI SANDRA MD Report #: [id number] Location: ICU Room/Bed: ICU [facility] Procedure: [id number] U S/US GUIDANCE FOR PROCEDURE Exam Date: [...] PROCEDURE DETAILS: Pre-procedure Consent: Informed consent for th e procedure including risks, benefits and alternatives [...] dilated and the catheter was placed into th e vein over a wire. A sterile dressing was applied. Catheter placed: Bard Tr ialysis Catheter size (Togolese): 13 Catheter length (cm): 20 Catheter flush : Heparin (1000 units/mL) Catheter securement technique: Non-absorbable suture Contrast Contrast agent: None Radiation Dose None. Ultrasound Onl y. Additional Details Additional description of procedure: None Equipme nt details: None Specimens removed: None Estimated blood loss (mL): Less chda n 10 Standardized report: SIR_CVA_NonTunneledCatheter_v3 Attestation Si gner name: Patricia Subramanian MD I attest that I was present for the entire procedure . I reviewed the stored images and agree with the report as written. Sign ed by: Patricia Subramanian MD on 05/16/2019 3:38 PM Dictated By: PATRICIA SUBRAMANIAN MD El ectronically Signed By: PATRICIA SUBRAMANIAN MD on 05/16/19 1538 Transcribed By: ALEXIA on 05/16/19 1538 COPY TO: YOVANI SANDRA MD CHEST SINGLE (PORTABLE) 2019-05-16 15:16:00 [place] [address] Patient Name: GABBIE TOBIN MR #: [id number] : 1955 Age/Sex: 63/F Req #: [id number] Adm Physician: PINA RUCKER MD Ordered by: PATRICIA SUBRAMANIAN MD Report #: [id number] Location: ICU Room/Bed: ICU [facility] Procedure: [id number] D X/CHEST SINGLE (PORTABLE) Exam Date: 05/16/19 Exam T ervin: 3771 REPORT STATUS: Signed EXAMINATION: CHEST SINGLE (PORTABLE) [...] IJ temporary dialysis catheter terminates in the superio r vena cava. Line is ready for immediate use. Unchanged cardiomegaly and pulmonary edema. Signed by: Patricia Subramanian MD on 05/16/2019 3:18 PM Dict ated By: PATRICIA SUBRAMANIAN MD Transcribed By: ALEXIA on 05/16/19 1518 COPY TO: PATRICIA SUBRAMANIAN MD Arterial Blood [id number] 14:09:00* Test Item Value Reference Range Interpretation Comments Arterial Blood pH (test code = 2744-1) 7.37 7.31-7.41 [facility] Partial Pressure CO2 2019-05-16 14:09:00* Test Item Value Reference Range Interpretation Comments Arterial Blood Partial Pressure CO2 (test code = 2019-8) 40 41-51 L [facility] Partial Pressure O2 2019-05-16 14:09:00* Test Item Value Reference Range Interpretation Comments Arterial Blood Partial Pressure O2 (test code = 2018-10) 94 80-105 [facility] Blood PSM59330-29-78 14:09:00* Test Item Value Reference Range Interpretation Comments Arterial Blood HCO3 (test code = 1960-4) 23 [facility] Base Jsaczf5974-90-70 14:09:00* Test Item Value Reference Range Interpretation Comments Arterial Blood Base Excess (test code = 1925-7) -2.0 -2-3 [facility] Oxygen Saturation 2019-05-16 14:09:00* Test Item Value Reference Range Interpretation Comments Arterial Blood Oxygen Saturation (test code = 2708-6) 97.0 95-98 [facility] AreaFiO22020-02-24 14:09:00* Test Item Value Reference Range Interpretation Comments FiO2 (test code = FiO2) 60 BIPAP 16/8 RR 16DREW FROM RIGHT BRACHIALCorp[facility] Arterial blood pH hjsstxaxjcn1753-87-97 13:00:00* Test Item Value Reference Range Interpretation Comments Arterial Blood pH (test code = 2744-1) 7.37 7.31-7.41 [facility] AreapCO2 QyiS2895-02-80 13:00:00* Test Item Value Reference Range Interpretation Comments Arterial Blood Partial Pressure CO2 (test code = 2018-10) 40 mm[Hg] 41-51 [facility] AreapCO2 LyyJ0042-06-64 13:00:00* Test Item Value Reference Range Interpretation Comments Arterial Blood Partial Pressure O2 (test code = 2018-) 94 mm[Hg] 80-105 [facility] AreaAr[facility] blood bicarbonate measurement (moles/volume)2019-05-16 13:00:00* Test Item Value Reference Range Interpretation Comments Arterial Blood HCO3 (test code = 1960-4) 23 mmol/L [facility] AreaAr[facility] blood base excess by calculation 2019-05-16 13:00:00* Test Item Value Reference Range Interpretation Comments Arterial Blood Base Excess (test code = 1925-7) -2.0 mmol/L -2-3 [facility] AreaAr[facility] blood oxygen saturation fvbutfoqpwd9568-99-47 13:00:00* Test Item Value Reference Range Interpretation Comments Arterial Blood Oxygen Saturation (test code = 2708-6) 97.0 % 95-98 [facility] AreaFluoroscopic procedure less than one hour dvkqdcim1047-56-37 13:00:00* Test Item Value Reference Range Interpretation Comments FiO2 (test code = FiO2) 60 % BIPAP 16/8 RR 16DREW [facility])2019-05-16 06:58:00 [place] [address] Patient Name: GABBIE TOBIN MR #: [id number] : 1955 Age/Sex: 63/F Req #: [id number] Adm Physician: PINA RUCKER MD Ordered by: BHAVESH ABBASI MD Report #: [id number] Location: ICU Room/Bed: [place] [address] Procedure: [id number] DX/CHEST SINGLE (PORTABLE) Exam Date: 05/16/19 Exam Time: 529 REPORT STATUS: Signed EXAMINATION: CHEST SINGLE (PORTABLE) COMPARISON: Chest x-ray INDICATION: Altered level of consciousness, shortness of [...] ectronically Signed By: JACKY PARRISH MD on 05/16/19699 Transcribed By: Bhargav CLARKE on 05/16/19 07 COPY TO: BHAVESH ABBASI MD Venous Blood pH 2019-05-15 10:12:00* Test Item Value Reference Range Interpretation Comments Venous Blood pH (test code = Venous Blood pH) 7.413 7.35-7.3 8 H [facility] AreaVen[facility] Blood Partial Pressure CO2 2019-05-15 10:12:00* Test Item Value Reference Range Interpretation Comments Venous Blood Partial Pressure CO2 (test code = Venous Blood Partial Pressure CO2) 36.1 44-48 L [facility] AreaVen[facility] Blood Partial Pressure O2 2019-05-15 10:12:00* Test Item Value Reference Range Interpretation Comments Venous Blood Partial Pressure O2 (test code = Venous B lood Partial Pressure O2) 48 40-41 H [facility] AreaVenous Blood [id number] 10:12:00* Test Item Value Reference Range Interpretation Comments Venous Blood HCO3 (test code = Venous Blood HCO3) 23.0 21-2 2 H [facility] Area[facility] Blood Total Carbon Dioxide 2019-05-15 10:12:00* Test Item Value Reference Range Interpretation Comments Venous Blood Total Carbon Dioxide (test code = Venous Blood Total Carbon Dioxide) 24 [facility] AreaVen[facility] Blood Base Gzvcuk6053-86-65 10:12:00* Test Item Value Reference Range Interpretation Comments Venous Blood Base Excess (test code = Venous Blood Base Excess) -2 [facility] Area[facility] Blood Oxygen Jftizrjruy0806-09-07 10:12:00* Test Item Value Reference Range Interpretation Comments Venous Blood Oxygen Saturation (test code = Venous Blood Oxy gen Saturation) 84 [facility] AreaFluoroscopic procedure less than one hour czvsmqpz3832-62-29 07:04:00* Test Item Value Reference Range Interpretation Comments Venous Blood pH (test code = Venous Blood pH) 7.413 7.35-7.3 8 [facility] AreaFluoroscopic procedure less than one hour ygbsyxwn1210-25-57 07:04:00* Test Item Value Reference Range Interpretation Comments Venous Blood Partial Pressure CO2 (test code = Venous Blood Partial Pressure CO2) 36.1 44-48 [facility] AreaFluoroscopic procedure less than one hour ktwhwfrv9202-44-38 07:04:00* Test Item Value Reference Range Interpretation Comments Venous Blood Partial Pressure O2 (test code = Venous B lood Partial Pressure O2) 48 40-41 [facility] AreaFluoroscopic procedure less than one hour ygguthye9832-63-33 07:04:00* Test Item Value Reference Range Interpretation Comments Venous Blood HCO3 (test code = Venous Blood HCO3) 23.0 21-2 2 [facility] AreaFluoroscopic procedure less than one hour poifisce0175-45-80 07:04:00* Test Item Value Reference Range Interpretation Comments Venous Blood Total Carbon Dioxide (test code = Venous Blood Total Carbon Dioxide) 24 [facility] AreaFluoroscopic procedure less than one hour wsbzoobi0583-00-29 07:04:00* Test Item Value Reference Range Interpretation Comments Venous Blood Base Excess (test code = Venous Blood Base Excess) -2 [facility] AreaFluoroscopic procedure less than one hour ophiurar2754-70-42 07:04:00* Test Item Value Reference Range Interpretation Comments Venous Blood Oxygen Saturation (test code = Venous Blood Oxy gen Saturation) 84 [facility] AreaCHEST SINGLE (PORTABLE)2019-05-15 06:19:00 [facility] [address] [place] [address] Patient Name: GABBIE TOBIN MR #: [id number] : 1955 Age/Sex: 63/F Req #: [id number] Adm Physician: PINA RUCKER MD Ordered by: BHAVESH ABBASI MD Report #: [id number] Location: ICU Room/Bed: [place] [address] Procedure: [id number] DX/CHEST SINGLE (PORTABLE) Exam Date: 05/15/19 Exam Time: 0545 REPORT STATUS: Signed EXAMINATION: CHEST SINGLE (PORTABLE) COMPARISON: Chest x-ray 0 INDICATION: resp distress [id number] DISCUSSION: F rontal [...] 05/15/19620 COPY TO: BHAVESH ABBASI MD Triglycerides Guwxb2824-38-65 05:51:00* Test Item Value Reference Range Interpretation Comments Triglycerides Level (test code = 2571-8) 103 0-149 [facility] AreaCholesterol Vhaqr1840-65-83 05:51:00* Test Item Value Reference Range Interpretation Comments Cholesterol Level (test code = 2093-3) 134 0-199 Less than 200 mg/dL Low Wurs398 - 239 mg/dL Borderline Ffkt351 m g/dl and greater High Risk [facility] AreaLDL Lgsxjuuoagu5691-34-59 05:51:00* Test Item Value Reference Range Interpretation Comments LDL Cholesterol (test code = 2089-1) 82 60-130 [facility] AreaHDL Kmwxccqyswu8235-88-40 05:51:00* Test Item Value Reference Range Interpretation Comments HDL Cholesterol (test code = 2085-9) 31 40-60 L [facility] AreaCholesterol/HDL Kjpfx2395-22-03 05:51:00 * Test Item Value Reference Range Interpretation Comments Cholesterol/HDL Ratio (test code = 9830-1) 4.3 3.0-3.6 H [facility] triglyceride measurement (mass/volume)2019-05-15 03:20:00* Test Item Value Reference Range Interpretation Comments Triglycerides Level (test code = 2571-8) 103 mg/dL 0-149 [facility] cholesterol measurement (mass/volume)2019-05-15 03:20:00* Test Item Value Reference Range Interpretation Comments Cholesterol Level (test code = 2093-3) 134 mg/dL 0-199 Less than 200 mg/dL Low Jgct897 - 239 mg/dL Borderline Ihrz652 m g/dl and greater High Risk [facility] cholesterol in LDL measurement (mass/volume) 2019-05-15 03:20:00* Test Item Value Reference Range Interpretation Comments LDL Cholesterol (test code = 2089-1) 82 mg/dL 60-130 [facility] cholesterol in HDL measurement (mass/volume)2019-05-15 03:20:00* Test Item Value Reference Range Interpretation Comments HDL Cholesterol (test code = 2085-9) 31 mg/dL 40-60 [facility] total cholesterol/cholesterol in HDL mass bxupv0806-45-29 03:20:00* Test Item Value Reference Range Interpretation Comments Cholesterol/HDL Ratio (test code = 9830-1) 4.3 3.0-3.6 [facility] AreaBlood vubsikt7085-57-97 00:29:00* Test Item Value Reference Range Interpretation Comments Blood Culture (test code = 64497391) NO GROWTH AFTER 5 DAYS, FINAL REPORT [facility] AreaFree Thyroxine Hlyvk7801-23-00 15:17:00* Test Item Value Reference Range Interpretation Comments Free Thyroxine Index (test code = 95108-9) 2.0190 1.4-3.8 [facility] AreaThyroxine (T4)2019-05-14 15:17:00* Test Item Value Reference Range Interpretation Comments Thyroxine (T4) (test code = 3026-2) 5.01 4.5-10.9 Our current method for Total T4 is not recommended for use as the only marker fo r evaluating patients for thyroid disorders.[facility] AreaTriiodothyronine (T3) Hgepbd7156-97-32 15:17:00* Test Item Value Reference Range Interpretation Comments Triiodothyronine (T3) Uptake (test code = 3050-2) 40.30 22.5 -37.0 H [facility] AreaThyroid Stimulating Hormone (TSH) 2019-05-14 15:17:00* Test Item Value Reference Range Interpretation Comments Thyroid Stimulating Hormone (TSH) (test code = 69726-3) 0.409 0.350-4.940 [facility] AreaFree thyroxine dgprd4526-56-54 13:12:00* Test Item Value Reference Range Interpretation Comments Free Thyroxine Index (test code = 40939-2) 2.0190 1.4-3.8 [facility] plasma thyroxine (T4) measurement (mass/volume)2019-05-14 13:12:00* Test Item Value Reference Range Interpretation Comments Thyroxine (T4) (test code = 3026-2) 5.01 ug/dL 4.5-10.9 Our current method for Total T4 is not recommended for use as the only marker fo r evaluating patients for thyroid disorders.[facility] or plasma triiodothyronine resin uptake (T3RU)2019-05-14 13:12:00* Test Item Value Reference Range Interpretation Comments Triiodothyronine (T3) Uptake (test code = 3050-2) 40.30 % 22.5 -37.0 [facility] plasma thyrotropin measurement by detection limit <= 0.005 miu/l (units/volume)2019-05-14 13:12:00* Test Item Value Reference Range Interpretation Comments Thyroid Stimulating Hormone (TSH) (test code = 56981-5) 0.409 0.350-4.940 [facility] AreaCHES SINGLE (PORTABLE)2019-05-14 06:11:00 [facility] [address] [place] [address] Patient Name: GABBIE TOBIN MR #: [id number] : 1955 Age/Sex: 63/F Req #: [id number] Adm Physician: PINA RUCKER MD Ordered by: ERIK FORD MD Report #: [id number] Location: ICU Room/Bed: ICU [facility] Procedure: [id number] DX/CHEST SINGLE (PORTABLE) Exam Date: 05/14/19 Exam Time: 0520 REPORT STATUS: Signed EXAMINATION: CHEST SINGLE (PORTABLE) COMPARISON: Chest x-ray 05/13/2019 INDICATION: PULMONARY EDEMA [id number] 0520 DISC USSION: Frontal view of the chest [...] COPY TO: ERIK PARRA MD B-Type Natriuretic Rldkxda5476-72-26 05:54:00* Test Item Value Reference Range Interpretation Comments B-Type Natriuretic Peptide (test code = 93031-9) 1680.0 0-100 H [facility] AreaBNP Hnl-tRyr1323-91-22 03:32:00* Test Item Value Reference Range Interpretation Comments B-Type Natriuretic Peptide (test code = 31591-3) 1680.0 pg/mL 0-100 [facility] AreaUrine PNF6071-86-19 00:56:00* Test Item Value Reference Range Interpretation Comments Urine WBC (test code = 5821-4) 11-20 0-5 H [facility] AreaU[facility] CUL9529-40-94 00:56:00* Test Item Value Reference Range Interpretation Comments Urine RBC (test code = 98122-1) 21-50 0-5 H [facility] AreaU[facility] Nejhdvfv1331-81-14 00:56:00* Test Item Value Reference Range Interpretation Comments Urine Bacteria (test code = 55992-6) MANY NONE H [facility] AreaUrine Epithelial Udjtk6590-75-80 00:56:00 * Test Item Value Reference Range Interpretation Comments Urine Epithelial Cells (test code = 59168-7) FEW NONE [facility] AreaU[facility] Amorphous Uibtnqmd9349-47-49 00:56:00* Test Item Value Reference Range Interpretation Comments Urine Amorphous Sediment (test code = 8246-1) MANY FEW H [facility] AreaU[facility] Fine Granular Zwiez9093-48-96 00:56:00* Test Item Value Reference Range Interpretation Comments Urine Fine Granular Casts (test code = 49275-8) 1-5 >0 H [facility] AreaU[facility] Coarse Granular Bgyeb1511-20-65 00:56:00* Test Item Value Reference Range Interpretation Comments Urine Coarse Granular Casts (test code = 37647-7) 1-5 >0 H [facility] AreaU[facility] Ucujf6838-48-73 00:39:00* Test Item Value Reference Range Interpretation Comments Urine Color (test code = 5778-6) CONNER YELLOW H [facility] AreaUrine Hfamnqo2451-80-33 00:39:00* Test Item Value Reference Range Interpretation Comments Urine Clarity (test code = 51345-7) CLOUDY CLEAR H [facility] AreaUrine Specific Bcoiaio4277-81-70 00:39:00 * Test Item Value Reference Range Interpretation Comments Urine Specific [place] (test code = 5811-5) 1.020 1.010-1.02 5 [facility] AreaU[facility] xT4368-10-46 00:39:00* Test Item Value Reference Range Interpretation Comments Urine pH (test code = 18923-0) 6.5 5-7 [facility] Leukocyte Dlwnqsbl4894-47-30 00:39:00* Test Item Value Reference Range Interpretation Comments Urine Leukocyte Esterase (test code = 5799-2) NEGATIVE NEGATIVE [facility] Area[facility] Pmlcwxk7889-81-36 00:39:00* Test Item Value Reference Range Interpretation Comments Urine Nitrite (test code = 42350-2) NEGATIVE NEGATIVE [facility] Kxkbyka1685-33-23 00:39:00* Test Item Value Reference Range Interpretation Comments Urine Protein (test code = 5804-0) 3+ NEGATIVE H [facility] AreaU[facility] Glucose (UA)2019-05-14 00:39:00* Test Item Value Reference Range Interpretation Comments Urine Glucose (UA) (test code = 2349-9) 2+ NEGATIVE H [facility] AreaU[facility] Boepxqa1485-56-14 00:39:00* Test Item Value Reference Range Interpretation Comments Urine Ketones (test code = 32108-9) NEGATIVE NEGATIVE [facility] AreaU[facility] Jwfteblmwkoa0059-59-21 00:39:00* Test Item Value Reference Range Interpretation Comments Urine Urobilinogen (test code = 43719-0) 0.2 0.2-1 [facility] Advmfytqv4286-94-85 00:39:00* Test Item Value Reference Range Interpretation Comments Urine Bilirubin (test code = 1978-6) 1+ NEGATIVE H [facility] AreaU[facility] Tjufm9330-68-90 00:39:00* Test Item Value Reference Range Interpretation Comments Urine Blood (test code = 71733-3) 3+ NEGATIVE H [facility] AreaUrine color tyzelmavzoskp5174-79-91 23:20:00* Test Item Value Reference Range Interpretation Comments Urine Color (test code = 5778-6) CONNER YELLOW [facility] AreaU[facility] tgspygc3635-35-58 23:20:00* Test Item Value Reference Range Interpretation Comments Urine Clarity (test code = 07903-0) CLOUDY CLEAR [facility] gravity of Urine by Test strip 2019-05-13 23:20:00* Test Item Value Reference Range Interpretation Comments Urine Specific [place] (test code = 5811-5) 1.020 1.010-1.02 5 [facility] pH measurement by automated test gbxgf6150-90-15 23:20:00* Test Item Value Reference Range Interpretation Comments Urine pH (test code = 93928-9) 6.5 5-7 [facility] leukocyte esterase detection by siaebymr8925-04-65 23:20:00* Test Item Value Reference Range Interpretation Comments Urine Leukocyte Esterase (test code = 5799-2) NEGATIVE NEGATIVE [facility] Area[facility] nitrite rlugysyqr2897-67-37 23:20:00* Test Item Value Reference Range Interpretation Comments Urine Nitrite (test code = 57337-5) NEGATIVE NEGATIVE [facility] protein measurement by test strip (mass/volume)2019-05-13 23:20:00* Test Item Value Reference Range Interpretation Comments Urine Protein (test code = 5804-0) 3+ NEGATIVE [facility] glucose yhucliors2448-36-42 23:20:00* Test Item Value Reference Range Interpretation Comments Urine Glucose (UA) (test code = 2349-9) 2+ NEGATIVE [facility] ketones detection by automated test jppml4721-17-35 23:20:00* Test Item Value Reference Range Interpretation Comments Urine Ketones (test code = 33272-9) NEGATIVE NEGATIVE [facility] Area[facility] urobilinogen measurement by test strip (mass/volume)2019-05-13 23:20:00* Test Item Value Reference Range Interpretation Comments Urine Urobilinogen (test code = 45648-8) 0.2 mg/dL 0.2-1 [facility] total bilirubin measurement (mass/volume)2019-05-13 23:20:00* Test Item Value Reference Range Interpretation Comments Urine Bilirubin (test code = 1978-6) 1+ NEGATIVE [facility] AreaU[facility] erythrocytes qvyiftijz9450-88-80 23:20:00* Test Item Value Reference Range Interpretation Comments Urine Blood (test code = 96256-3) 3+ NEGATIVE [facility] AreaAutomated urine sediment leukocyte count by microscopy (number/high power field)2019-05-13 23:20:00* Test Item Value Reference Range Interpretation Comments Urine WBC (test code = 5821-4) 11-20 /[HPF] 0-5 [facility] AreaErythrocytes detection in urine sediment by light yrfhbnjyqt3803-86-93 23:20:00* Test Item Value Reference Range Interpretation Comments Urine RBC (test code = 73805-4) 21-50 /[HPF] 0-5 [facility] AreaBacteria detection in urine sediment by light acypgwwkbf3991-71-43 23:20:00* Test Item Value Reference Range Interpretation Comments Urine Bacteria (test code = 79323-1) MANY /[HPF] NONE [facility] AreaEpithelial cells detection in urine sediment by light jafptmabcz0685-47-50 23:20:00* Test Item Value Reference Range Interpretation Comments Urine Epithelial Cells (test code = 66866-0) FEW /[LPF] NONE [facility] AreaAmorphous sediment detection in urine sediment by light gnvnvgkrmd0405-69-42 23:20:00* Test Item Value Reference Range Interpretation Comments Urine Amorphous Sediment (test code = 8246-1) MANY FEW [facility] [facility] AreaAutomated fine granular casts count in urine sediment by microscopy low power field (number/area)2019-05-13 23:20:00* Test Item Value Reference Range Interpretation Comments Urine Fine Granular Casts (test code = 61678-4) 1-5 >0 [facility] AreaCoarse granular casts detection in urine sediment by light tnalzbrabj6479-52-15 23:20:00* Test Item Value Reference Range Interpretation Comments Urine Coarse Granular Casts (test code = 86739-0) 1-5 >0 [facility]2019-05-13 19:50:00 [place] [address] Patient Name: GABBIE TOBIN MR #: [id number] : 1955 Age/Sex: 63/F Req #: [id number] Adm Physician: Ordered by: ERIK FORD MD Report #: [id number] Location: ER Room/Bed: Procedure: 022 DX/CHEST SINGLE [...] on 05/13/191951 COPY TO: ERIK FORD MD [facility] (KUB)2019-02-11 10:32:00 [place] [id number] Patient Name: GABBIE TOBIN MR #: [id number] : 1955 Age/Sex: 63/F Req #: [id number] Adm Physician: Ordered by: AN POWELL MD Report #: [id number] Location: US Room/Bed: Procedure: [id number] DX/ ABDOMEN-1VIEW (KUB) Exam Date: Exam Time: REPORT STATUS: Signed Exam: KUB - 2 view s Indication: Renal calculus Comparison: Renal ultrasound of [...] 1037 CO PY TO: AN POWELL MD RENAL RETROPERITONEAL TNZQ7252-15-70 10:27:00 [place] [address] Patient Name: GABBIE TOBIN MR #: [id number] : [birth year] Age/Sex: 63/F Req #: [id number] Adm Physician: Ordered by: AN POWELL MD Report #: [id number] Location: US Room/Bed: Procedure: [id number] US/ US RENAL RETROPERITONEAL COMP Exam Date: [...] COPY TO: AN POWELL MD CHEST 2 FUFPM3806-30-56 10:25:00 [place] [address] Patient Name: GABBIE TOBIN MR #: [id number] : 1955 Age/Sex: 63/F Req #: [id number] Adm Physician: Ordered by: AN POWELL MD Report #: [id number] Location: Room/Bed: Procedure: [id number] DX/ CHEST 2 VIEWS Exam Date: Exam Time: REPORT STATUS: Signed EXAMINATION: CHEST 2 EWS INDICATION: Shortness of breath COMPARISON: Chest radiograph o f 09/21/2018 FINDINGS: LINES/TUBES:Right chest port in unchanged po sition. LUNGS:The lungs are well-inflated. There is perihilar fullness and indistinctness of the pulmonary vasculature. PLEURA:No pleural effusion o r pneumothorax. MEDIASTINUM:Cardiomediastinal silhouette is stably enlarged . BONES/SOFT TISSUES:No acute osseous injury. ABDOMEN:No free air unde r the diaphragm. IMPRESSION: Cardiomegaly and mild interstitial pulmo nary edema. Signed by: Patricia Subramanian MD on 02/11/2019 10:26 AM Dictate d By: PATRICIA SUBRAMANIAN MD 1026 T ranscribed By: ALEXIA on 02/11/19 1026 COPY TO: AN POWELL MD Stool Mgmeykzdcxye6114-73-84 22:10:00* Test Item Value Reference Range Interpretation Comments Stool Calprotectin (test code = 53419-5) <16 0-120 Concentration Interpretation Follow-Up<16 - 50 ug/g Normal None>50 -120 ug/g Borderline Re-evaluate in 4-6 weeks >120 ug/g Abnormal Repeat as clinically indicatedPerformed at: - [facility] [address] [id number] Director: Zee Kenny MD, Phone: [phone] venture between [facility] Lactoferrin (LAB)2019-01-07 11:03:00* Test Item Value Reference Range Interpretation Comments Stool Lactoferrin (LAB) (test code = 46851-4) NEGATIVE NEGATIVE Testing on stool aspirate specimens is outside diesel electrician claims since specime n type not validated on this assay.[facility] CenterCHEST 2 CELTD3158-70-45 11:58:00 [facility] [address] [place] [place] [address] Patient Name: GABBIE TOBIN MR #: [id number] : 1955 Age/Sex: 63/F Req #: [id number] Adm Physician: Ordered by: DALIA BRASWELL MD Report #: [id number] Location: OR Room/Bed: Procedure: [id number] DX/CHEST 2 VIEWS Exam Date: Exam Time: [...] 01/06/19 1200 COPY TO: DALIA BRASWELL MD YYSGNT6882-82-72 15:29:00* Test Item Value Reference Range Interpretation Comments GLUBED (test code = GLUBED) 90 mg/dL 74-106 N Performed by certified chopper gun operator at [facility] PROTHROMBIN COCV3399-79-65 14:47:00* Test Item Value Reference Range Interpretation [...] PATIENT ON ANTICOAGULANTS? YLIST ANTICOAGULANTS COUMADINTHROMBOPLASTIN TIME MSEMDDB8405-75-69 14:47:00* Test Item Value Reference Range Interpretation Comments THROMBOPLASTIN TIME PARTIAL (test code = PTT) 35.6 seconds 25.0-36. 5 N IS PATIENT ON ANTICOAGULANTS? YLIST ANTICOAGULANTS COUMADINCOMPREHENSIVE METABOLIC QRVML4582-79-66 12:49:00* Test Item Value Reference Range Interpretation [...] due to change in reagent. COMPREHENSIVE METABOLIC NDFVZ8596-50-87 12:41:00* Test Item Value Reference Range Interpretation [...] code = ALKP) IUnit/L 45-117 CBC W/AUTO [id number] 12:34:00* Test Item Value Reference Range Interpretation [...] NRBC#) 0.02 K/mm3 0.0-0.1 N CHEST 2 OXKDE2215-82-95 17:00:00 [place] [address] Patient Name: GABBIE TOBIN MR #: [id number] : 1955 Age/Sex: 62/F Req #: [id number] Adm Physician: Ordered by: PRISCILLA ARRINGTON MD Report #: [id number] Location: OR Room/Bed: Procedure: 60 DX/CHEST 2 VIEWS Exam Date: 09/21/18 Exam [...] enlarged. BONES AND SOFT TISSUES: No ac [place] osseous lesion. Soft tissues are unremarkable. UPPER [...] ARRINGTON MD CT ABDOMEN/PELVIS WO 2018-09-20 18:22:00 [place] [address] Patient Name: GABBIE TOBIN MR #: [id number] : 1955 Age/Sex: 62/F Req #: [id number] Adm Physician: Ordered by: AN POWELL MD Report #: [id number] Location: CT Room/Bed: Procedure: [id number] CT/ CT ABDOMEN/PELVIS WO Exam Date: 09/20/18 [...] None COMPLICATIONS: None RADIATION DOSE: Total DLP: 177 1 mGy*cm Estimated effective dose: (DLP x [...] on 09/20 COPY TO: AN POWELL MD [id number] 12:17:00* Test Item Value Reference Range Interpretation Comments GLUBED (test code = GLUBED) 109 mg/dL 74-106 H Performed by certified chopper gun operator at [facility] BBJLUF4090-67-77 09:35:00* Test Item Value Reference Range Interpretation Comments GLUBED (test code = GLUBED) 89 mg/dL 74-106 N Performed by certified chopper gun operator at [facility] [id number] 21:45:00* Test Item Value Reference Range Interpretation Comments GLUBED (test code = GLUBED) 134 mg/dL 74-106 H Performed by certified chopper gun operator at [facility] - XR CHEST 1 [id number] 14:42:00 FAX: Sean Guadarrama MD [phone] [place]: B St: ADM FAX: Edith Villatoro MD [phone] FAX: Kylee Braun MD [phone] Name: GABBIE TOBIN [facility] : 1955 Age/S: 62/F [address] [facility] Unit #: [id number] Loc: V.[address] [place] [address] Phys: Edith Lyman MD Acct: [id number] Dis Date: Status: ADM IN PH ONE #: [phone] Exam Date: 09/15/2018 1420 FAX #: [phone] Reason: LINE PLACEMENT EXAMS: CPT CODE: [id number] XR CHEST 1 V 81691 REASON FOR EXAM: LINE PLACEMENT EXAM ORDER DATE: 09/15/2018 12:00 AM Ordering M.D.: Edith Lyman MD PROCEDURE: - XR CHEST 1 V COMPARISON: FINDINGS: Portable AP frontal view o f the chest obtained at 2:28 PM shows [...] Technologist: YAW RICHARDS RT(R) Trnscrd Date/Time/By: 09/15/2018 (6083) : By: EstellaL Orig Pr int D/T: S: 09/15/2018 (4493) PAGE 1 Signed Report COMPREHENSIVE METABOLIC PANEL [...] due to change in reagent. COMPREHENSIVE METABOLIC [id number] 11:22:00* Test Item Value Reference Range Interpretation [...] code = ALKP) IUnit/L 45-117 CBC W/AUTO [id number] 10:43:00* Test Item Value Reference Range Interpretation [...] REQUIRED (test code = MDIFF) NO PROTHROMBIN [id number] 23:53:00* Test Item Value Reference Range Interpretation [...] (2.5-3.5) IS PATIENT ON ANTICOAGULANTS? NCBC W/AUTO [id number] 23:51:00* Test Item Value Reference Range Interpretation [...] (test code = MDIFF) NO COMPREHENSIVE METABOLIC [id number] 23:47:00* Test Item Value Reference Range Interpretation [...] due to change in reagent. COMPREHENSIVE METABOLIC [id number] 23:41:00* Test Item Value Reference Range Interpretation [...] (test code = ALKP) IUnit/L 45-117 Urine Qoyxtrc5689-29-86 06:24:00* Test Item Value Reference Range Interpretation Comments Urine Culture (test code = 630-4) Organism: NIRANJAN ALBICANS [facility] Svtve4263-30-62 06:11:00* Test Item Value Reference Range Interpretation Comments Sodium Level (test code = 2951-2) 138 136-145 [facility] AreaPotassium Xnved1316-41-05 06:11:00* Test Item Value Reference Range Interpretation Comments Potassium Level (test code = 2823-3) 4.6 3.5-5.1 [facility] AreaChloride Ddget5510-26-68 06:11:00* Test Item Value Reference Range Interpretation Comments Chloride Level (test code = 2075-0) 109 98-107 H [facility] AreaCarbon Dioxide Jtsdy5612-60-76 06:11:00* Test Item Value Reference Range Interpretation Comments Carbon Dioxide Level (test code = 2028-9) 21 22-29 L [facility] AreaAnion Bev7949-33-25 06:11:00* Test Item Value Reference Range Interpretation Comments Anion Gap (test code = 96996-4) 12.6 8-16 [facility] AreaBlood Urea Bpwiyztc1028-49-90 06:11:00* Test Item Value Reference Range Interpretation Comments Blood Urea Nitrogen (test code = 3094-0) 48 7-26 H [facility] AreaCreatinine2019-03-10 06:11:00* Test Item Value Reference Range Interpretation Comments Creatinine (test code = 2160-0) 3.53 0.57-1.11 H [facility] AreaBUN/Creatinine Izigh1148-44-85 06:11:00* Test Item Value Reference Range Interpretation Comments BUN/Creatinine Ratio (test code = 3097-3) 14 6-25 [facility] AreaEstimat Glomerular Filtration Rate 2018-05-30 06:11:00* Test Item Value Reference Range Interpretation Comments Estimat Glomerular Filtration Rate (test code = 834597332) 13 >60 L Ranges were taken from the National Kidney Disease Education Program and the [facility] [employer] literature.Reference ranges:60 or greater: Upfzro48-73 ( for 3 consecutive months): Chronic kidney disease 15 or less: Kidney failureCorpus Christi Medical Center Bay AreaGlucose Loazt2521-47-92 06:11:00* Test Item Value Reference Range Interpretation Comments Glucose Level (test code = LBU6260) 121 74-118 H [facility] AreaCalcium Mbrag8654-90-81 06:11:00* Test Item Value Reference Range Interpretation Comments Calcium Level (test code = 13065-7) 9.0 8.4-10.2 [facility]odium Gaztm9263-65-83 06:11:00* Test Item Value Reference Range Interpretation Comments Sodium Level (test code = 2951-2) 138 136-145 [facility] AreaPotassium Sosvq1281-23-34 06:11:00* Test Item Value Reference Range Interpretation Comments Potassium Level (test code = 2823-3) 4.6 3.5-5.1 [facility] AreaChloride Xtkqm0081-77-10 06:11:00* Test Item Value Reference Range Interpretation Comments Chloride Level (test code = 2075-0) 109 98-107 H [facility] AreaCarbon Dioxide Tlwdg4898-48-21 06:11:00* Test Item Value Reference Range Interpretation Comments Carbon Dioxide Level (test code = 2028-9) 21 22-29 L [facility] AreaAnion Mdc8773-14-81 06:11:00* Test Item Value Reference Range Interpretation Comments Anion Gap (test code = 46565-9) 12.6 8-16 [facility] AreaBlood Urea Ifffvezn1747-81-26 06:11:00* Test Item Value Reference Range Interpretation Comments Blood Urea Nitrogen (test code = 3094-0) 48 7-26 H [facility] AreaCreatinine2019-03-10 06:11:00* Test Item Value Reference Range Interpretation Comments Creatinine (test code = 2160-0) 3.53 0.57-1.11 H [facility] AreaBUN/Creatinine Hqlma4438-45-94 06:11:00* Test Item Value Reference Range Interpretation Comments BUN/Creatinine Ratio (test code = 3097-3) 14 6-25 [facility] AreaEstimat Glomerular Filtration Rate 2018-05-30 06:11:00* Test Item Value Reference Range Interpretation Comments Estimat Glomerular Filtration Rate (test code = 891656348) 13 >60 L Ranges were taken from the National Kidney Disease Education Program and the [facility] literature.Reference ranges:60 or greater: Vxwlhu68-13 ( for 3 consecutive months): Chronic kidney disease 15 or less: Kidney failureCorpus Christi Medical Center Bay AreaGlucose Npqyy5140-57-42 06:11:00* Test Item Value Reference Range Interpretation Comments Glucose Level (test code = TSY6113) 121 74-118 H [facility] AreaCalcium Spksj0941-27-79 06:11:00* Test Item Value Reference Range Interpretation Comments Calcium Level (test code = 04217-7) 9.0 8.4-10.2 [facility] AreaWhite Blood Jzqos5719-76-18 05:55:00* Test Item Value Reference Range Interpretation Comments White Blood Count (test code = 6690-2) 18.99 4.8-10.8 H [facility] AreaRed Blood Jehlv3385-18-38 05:55:00* Test Item Value Reference Range Interpretation Comments Red Blood Count (test code = 789-8) 3.47 3.6-5.1 L [facility] AreaHemoglobin2019-03-10 05:55:00* Test Item Value Reference Range Interpretation Comments Hemoglobin (test code = 64391-6) 9.6 12.0-16.0 L [facility] AreaHematocrit2019-03-10 05:55:00* Test Item Value Reference Range Interpretation Comments Hematocrit (test code = 4544-3) 31.1 34.2-44.1 L [facility] AreaMean Corpuscular Kxrhjk9171-46-10 05:55:00* Test Item Value Reference Range Interpretation Comments Mean Corpuscular Volume (test code = 787-2) 89.6 81-99 [facility] AreaMean Corpuscular Hmtvbcvzdh0800-64-49 05:55:00* Test Item Value Reference Range Interpretation Comments Mean Corpuscular Hemoglobin (test code = 785-6) 27.7 28-32 L [facility] AreaMean Corpuscular Hemoglobin Concent 2018-05-30 05:55:00* Test Item Value Reference Range Interpretation Comments Mean Corpuscular Hemoglobin Concent (test code = 786-4) 30.9 31-35 L [facility] AreaRed Cell Distribution Dzxae9481-47-41 05:55:00* Test Item Value Reference Range Interpretation Comments Red Cell Distribution Width (test code = 11606-9) 15.9 11.7 -14.4 H [facility] AreaPlatelet Bcpjn7681-03-78 05:55:00* Test Item Value Reference Range Interpretation Comments Platelet Count (test code = 777-3) 615 140-360 H [facility] AreaNeutrophils (%) (Auto)2018-05-30 05:55:00 * Test Item Value Reference Range Interpretation Comments Neutrophils (%) (Auto) (test code = 17383-2) 73.6 38.7-80.0 [facility] AreaLymphocytes (%) (Auto)2018-05-30 05:55:00 * Test Item Value Reference Range Interpretation Comments Lymphocytes (%) (Auto) (test code = 736-9) 17.8 18.0-39.1 L [facility] AreaMonocytes (%) (Auto)2018-05-30 05:55:00* Test Item Value Reference Range Interpretation Comments Monocytes (%) (Auto) (test code = 5905-5) 6.4 4.4-11.3 [facility] AreaEosinophils (%) (Auto)2018-05-30 05:55:00 * Test Item Value Reference Range Interpretation Comments Eosinophils (%) (Auto) (test code = 713-8) 1.1 0.0-6.0 [facility] AreaBasophils (%) (Auto)2018-05-30 05:55:00* Test Item Value Reference Range Interpretation Comments Basophils (%) (Auto) (test code = 706-2) 0.3 0.0-1.0 [facility] AreaIM GRANULOCYTES %2018-05-30 05:55:00* Test Item Value Reference Range Interpretation Comments IM GRANULOCYTES % (test code = IM GRANULOCYTES %) 0.8 0.0- 1.0 [facility] AreaNeutrophils # (Auto)2018-05-30 05:55:00* Test Item Value Reference Range Interpretation Comments Neutrophils # (Auto) (test code = 751-8) 14.0 2.1-6.9 H [facility] AreaLymphocytes # (Auto)2018-05-30 05:55:00* Test Item Value Reference Range Interpretation Comments Lymphocytes # (Auto) (test code = 27452-6) 3.4 1.0-3.2 H [facility] AreaMonocytes # (Auto)2018-05-30 05:55:00* Test Item Value Reference Range Interpretation Comments Monocytes # (Auto) (test code = 742-7) 1.2 0.2-0.8 H [facility] AreaEosinophils # (Auto)2018-05-30 05:55:00* Test Item Value Reference Range Interpretation Comments Eosinophils # (Auto) (test code = 711-2) 0.2 0.0-0.4 [facility] AreaBasophils # (Auto)2018-05-30 05:55:00* Test Item Value Reference Range Interpretation Comments Basophils # (Auto) (test code = 704-7) 0.1 0.0-0.1 [facility] AreaAbsolute Immature Granulocyte (auto 2018-05-30 05:55:00* Test Item Value Reference Range Interpretation Comments Absolute Immature Granulocyte (auto (ortega t code = Absolute Immature Granulocyte (auto) 0.15 0-0.1 H [facility] AreaWhite Blood Ujnjt9072-65-88 05:55:00* Test Item Value Reference Range Interpretation Comments White Blood Count (test code = 6690-2) 18.99 4.8-10.8 H [facility] AreaRed Blood Eboyu8159-61-95 05:55:00* Test Item Value Reference Range Interpretation Comments Red Blood Count (test code = 789-8) 3.47 3.6-5.1 L [facility] AreaHemoglobin2019-03-10 05:55:00* Test Item Value Reference Range Interpretation Comments Hemoglobin (test code = 65709-3) 9.6 12.0-16.0 L [facility] AreaHematocrit2019-03-10 05:55:00* Test Item Value Reference Range Interpretation Comments Hematocrit (test code = 4544-3) 31.1 34.2-44.1 L [facility] AreaMean Corpuscular Qtuubx9057-35-90 05:55:00* Test Item Value Reference Range Interpretation Comments Mean Corpuscular Volume (test code = 787-2) 89.6 81-99 [facility] AreaMean Corpuscular Dshgtkdjhz5031-16-48 05:55:00* Test Item Value Reference Range Interpretation Comments Mean Corpuscular Hemoglobin (test code = 785-6) 27.7 28-32 L [facility] AreaMean Corpuscular Hemoglobin Concent 2018-05-30 05:55:00* Test Item Value Reference Range Interpretation Comments Mean Corpuscular Hemoglobin Concent (test code = 786-4) 30.9 31-35 L [facility] AreaRed Cell Distribution Ehaky7177-83-16 05:55:00* Test Item Value Reference Range Interpretation Comments Red Cell Distribution Width (test code = 85789-0) 15.9 11.7 -14.4 H [facility] AreaPlatelet Bnlru4055-98-96 05:55:00* Test Item Value Reference Range Interpretation Comments Platelet Count (test code = 777-3) 615 140-360 H [facility] AreaNeutrophils (%) (Auto)2018-05-30 05:55:00 * Test Item Value Reference Range Interpretation Comments Neutrophils (%) (Auto) (test code = 35754-8) 73.6 38.7-80.0 [facility] AreaLymphocytes (%) (Auto)2018-05-30 05:55:00 * Test Item Value Reference Range Interpretation Comments Lymphocytes (%) (Auto) (test code = 736-9) 17.8 18.0-39.1 L [facility] AreaMonocytes (%) (Auto)2018-05-30 05:55:00* Test Item Value Reference Range Interpretation Comments Monocytes (%) (Auto) (test code = 5905-5) 6.4 4.4-11.3 [facility] AreaEosinophils (%) (Auto)2018-05-30 05:55:00 * Test Item Value Reference Range Interpretation Comments Eosinophils (%) (Auto) (test code = 713-8) 1.1 0.0-6.0 [facility] AreaBasophils (%) (Auto)2018-05-30 05:55:00* Test Item Value Reference Range Interpretation Comments Basophils (%) (Auto) (test code = 706-2) 0.3 0.0-1.0 [facility] AreaIM GRANULOCYTES %2018-05-30 05:55:00* Test Item Value Reference Range Interpretation Comments IM GRANULOCYTES % (test code = IM GRANULOCYTES %) 0.8 0.0- 1.0 [facility] AreaNeutrophils # (Auto)2018-05-30 05:55:00* Test Item Value Reference Range Interpretation Comments Neutrophils # (Auto) (test code = 751-8) 14.0 2.1-6.9 H [facility] AreaLymphocytes # (Auto)2018-05-30 05:55:00* Test Item Value Reference Range Interpretation Comments Lymphocytes # (Auto) (test code = 61539-5) 3.4 1.0-3.2 H [facility] AreaMonocytes # (Auto)2018-05-30 05:55:00* Test Item Value Reference Range Interpretation Comments Monocytes # (Auto) (test code = 742-7) 1.2 0.2-0.8 H [facility] AreaEosinophils # (Auto)2018-05-30 05:55:00* Test Item Value Reference Range Interpretation Comments Eosinophils # (Auto) (test code = 711-2) 0.2 0.0-0.4 [facility] AreaBasophils # (Auto)2018-05-30 05:55:00* Test Item Value Reference Range Interpretation Comments Basophils # (Auto) (test code = 704-7) 0.1 0.0-0.1 [facility] AreaAbsolute Immature Granulocyte (auto 2018-05-30 05:55:00* Test Item Value Reference Range Interpretation Comments Absolute Immature Granulocyte (auto (ortega t code = Absolute Immature Granulocyte (auto) 0.15 0-0.1 H [facility] Bay AreaUrine Cbxmcns0873-37-23 10:51:00* Test Item Value Reference Range Interpretation Comments Urine Culture (test code = 630-4) Organism: YEAST SPECIES [facility] AreaUrine Ekqztud4948-06-08 08:05:00* Test Item Value Reference Range Interpretation Comments Urine Culture (test code = 630-4) Organism: NIRANJAN ALBICANS [facility] AreaUrine Mrfjlhc5596-52-58 08:05:00* Test Item Value Reference Range Interpretation Comments Urine Culture (test code = 630-4) Organism: NIRANJAN ALBICANS [facility] AreaProthrombin Yqyw8774-24-65 06:44:00* Test Item Value Reference Range Interpretation Comments Prothrombin Time (test code = 5902-2) 20.0 11.9-14.5 H [facility] AreaProthromb Time International Ratio 2018-05-27 06:44:00* Test Item Value Reference Range Interpretation Comments Prothromb Time International Ratio (test code = 6301-6) 1.64 Oral Anticoagulant Therapy INR Values:1. Low Intensity Therapy 1.5 - 2.02 . Moderate Intensity Therapy 2.0 - 3.03. High Intensity Therapy(1) 2.5 - 3. 54. High Intensity Therapy(2) 3.0 - 4.05. Panic Value INR > 5.0 [facility] AreaProthrombin Fwxj6834-09-64 06:44:00* Test Item Value Reference Range Interpretation Comments Prothrombin Time (test code = 5902-2) 20.0 11.9-14.5 H [facility] AreaProthromb Time International Ratio 2018-05-27 06:44:00* Test Item Value Reference Range Interpretation Comments Prothromb Time International Ratio (test code = 6301-6) 1.64 Oral Anticoagulant Therapy INR Values:1. Low Intensity Therapy 1.5 - 2.02 . Moderate Intensity Therapy 2.0 - 3.03. High Intensity Therapy(1) 2.5 - 3. 54. High Intensity Therapy(2) 3.0 - 4.05. Panic Value INR > 5.0 [facility] AreaABDOMEN-1VIEW (KUB)2018-05-25 10:23:00 [facility] [address] [place] [address] Patient Name: GABBIE TOBIN MR #: [id number] : [birth year] Age/Sex: 62/F Req #: [id number] Adm Physician: KYLEE ACOSTA MD Ordered by: AN POWELL MD Report #: [id number] Location: [facility]/SURG3 Room/Bed: [facility] Procedure: [id number] DX/ ABDOMEN-1VIEW (KUB) Exam Date: 05/25/18 Exam [...] 1035 COPY TO: AN POWELL MD Magnesium Aabqz6197-66-99 07:15:00* Test Item Value Reference Range Interpretation Comments Magnesium Level (test code = 24055-9) 1.6 1.3-2.1 [facility] AreaMagnesium Zpduz3304-13-31 07:15:00* Test Item Value Reference Range Interpretation Comments Magnesium Level (test code = 13575-4) 1.6 1.3-2.1 [facility] Vyssyvfwh8291-79-21 07:05:00* Test Item Value Reference Range Interpretation Comments Total Bilirubin (test code = 1975-2) 0.2 0.2-1.2 [facility] AreaAspartate Amino Transf (AST/SGOT) 2018-05-25 07:05:00* Test Item Value Reference Range Interpretation Comments Aspartate Amino Transf (AST/SGOT) (test code = Aspartate Amino Transf (AST/SGOT)) 11 5-34 [facility] AreaAlanine Aminotransferase (ALT/SGPT) 2018-05-25 07:05:00* Test Item Value Reference Range Interpretation Comments Alanine Aminotransferase (ALT/SGPT) (test code = 1742-6) 9 0-55 [facility] Hhsxpdd4797-23-62 07:05:00* Test Item Value Reference Range Interpretation Comments Total Protein (test code = 2885-2) 6.5 6.5-8.1 [facility] 07:05:00* Test Item Value Reference Range Interpretation Comments Albumin (test code = 1751-7) 2.7 3.5-5.0 L [facility] AreaGlobulin2019-03-05 07:05:00* Test Item Value Reference Range Interpretation Comments Globulin (test code = 55832-9) 3.8 2.3-3.5 H [facility] AreaAlbumin/Globulin Mbyzm4034-20-48 07:05:00 * Test Item Value Reference Range Interpretation Comments Albumin/Globulin Ratio (test code = 1759-0) 0.7 0.8-2.0 L [facility] AreaAlkaline Vevejatpgoj8253-24-38 07:05:00* Test Item Value Reference Range Interpretation Comments Alkaline Phosphatase (test code = 6768-6) 61 40-150 [facility] Yyxatocpy7883-70-61 07:05:00* Test Item Value Reference Range Interpretation Comments Total Bilirubin (test code = 1975-2) 0.2 0.2-1.2 [facility] AreaAspartate Amino Transf (AST/SGOT) 2018-05-25 07:05:00* Test Item Value Reference Range Interpretation Comments Aspartate Amino Transf (AST/SGOT) (test code = Aspartate Amino Transf (AST/SGOT)) 11 5-34 [facility] AreaAlanine Aminotransferase (ALT/SGPT) 2018-05-25 07:05:00* Test Item Value Reference Range Interpretation Comments Alanine Aminotransferase (ALT/SGPT) (test code = 1742-6) 9 0-55 [facility] AreaTotal Wdvsrfh6524-04-90 07:05:00* Test Item Value Reference Range Interpretation Comments Total Protein (test code = 2885-2) 6.5 6.5-8.1 [facility] AreaAlbumin2019-03-05 07:05:00* Test Item Value Reference Range Interpretation Comments Albumin (test code = 1751-7) 2.7 3.5-5.0 L [facility] AreaGlobulin2019-03-05 07:05:00* Test Item Value Reference Range Interpretation Comments Globulin (test code = 91596-1) 3.8 2.3-3.5 H [facility] AreaAlbumin/Globulin Eoxrl1612-89-67 07:05:00 * Test Item Value Reference Range Interpretation Comments Albumin/Globulin Ratio (test code = 1759-0) 0.7 0.8-2.0 L [facility] AreaAlkaline Yrqrhawdzju3723-16-53 07:05:00* Test Item Value Reference Range Interpretation Comments Alkaline Phosphatase (test code = 6768-6) 61 40-150 [facility] AreaUrine CTY1449-80-24 20:13:00* Test Item Value Reference Range Interpretation Comments Urine WBC (test code = 5821-4) >50 0-5 H [facility] AreaU[facility] NPN8403-52-84 20:13:00* Test Item Value Reference Range Interpretation Comments Urine RBC (test code = 33950-0) 6-10 0-5 H [facility] AreaU[facility] Urjgevqy9199-93-42 20:13:00* Test Item Value Reference Range Interpretation Comments Urine Bacteria (test code = 75717-5) FEW NONE [facility] AreaUrine Epithelial Klfth3168-16-09 20:13:00 * Test Item Value Reference Range Interpretation Comments Urine Epithelial Cells (test code = 82516-2) RARE NONE [facility] AreaU[facility] UJR6329-36-04 20:13:00* Test Item Value Reference Range Interpretation Comments Urine WBC (test code = 5821-4) >50 0-5 H [facility] AreaUrine TVQ1556-68-12 20:13:00* Test Item Value Reference Range Interpretation Comments Urine RBC (test code = 12094-8) 6-10 0-5 H [facility] AreaUrine Oljpctrz9714-06-65 20:13:00* Test Item Value Reference Range Interpretation Comments Urine Bacteria (test code = 14010-7) FEW NONE [facility] AreaUrine Epithelial Dxbhv7073-79-00 20:13:00 * Test Item Value Reference Range Interpretation Comments Urine Epithelial Cells (test code = 21271-5) RARE NONE [facility] AreaU[facility] Wvpgg3250-73-44 19:58:00* Test Item Value Reference Range Interpretation Comments Urine Color (test code = 5778-6) YELLOW YELLOW [facility] AreaU[facility] Octetjb8636-99-04 19:58:00* Test Item Value Reference Range Interpretation Comments Urine Clarity (test code = 38549-2) CLOUDY CLEAR H [facility] AreaUrine Specific Pzjkkwt9359-15-72 19:58:00 * Test Item Value Reference Range Interpretation Comments Urine Specific [place] (test code = 5811-5) 1.025 1.010-1.02 5 [facility] AreaU[facility] pD6002-03-52 19:58:00* Test Item Value Reference Range Interpretation Comments Urine pH (test code = 80157-5) 6 5-7 [facility] Leukocyte Fyilwdcs5292-99-17 19:58:00* Test Item Value Reference Range Interpretation Comments Urine Leukocyte Esterase (test code = 5799-2) 1+ NEGATIVE H [facility] AreaU[facility] Nufrpfs1729-64-58 19:58:00* Test Item Value Reference Range Interpretation Comments Urine Nitrite (test code = 52487-6) NEGATIVE NEGATIVE [facility] AreaU[facility] Smmvati9898-78-85 19:58:00* Test Item Value Reference Range Interpretation Comments Urine Protein (test code = 5804-0) 3+ NEGATIVE H [facility] AreaU[facility] Glucose (UA)2018-05-23 19:58:00* Test Item Value Reference Range Interpretation Comments Urine Glucose (UA) (test code = 2349-9) NEGATIVE NEGATIVE [facility] AreaU[facility] Cgaplqu2940-85-45 19:58:00* Test Item Value Reference Range Interpretation Comments Urine Ketones (test code = 76728-3) NEGATIVE NEGATIVE [facility] AreaU[facility] Gqojtvlwrnto0318-96-67 19:58:00* Test Item Value Reference Range Interpretation Comments Urine Urobilinogen (test code = 02857-0) 0.2 0.2-1 [facility] Grskntjgy2098-44-10 19:58:00* Test Item Value Reference Range Interpretation Comments Urine Bilirubin (test code = 1978-6) NEGATIVE NEGATIVE [facility] AreaU[facility] Mqwtr6127-36-29 19:58:00* Test Item Value Reference Range Interpretation Comments Urine Blood (test code = 57196-9) 1+ NEGATIVE H [facility] AreaUrine Svejf3824-95-32 19:58:00* Test Item Value Reference Range Interpretation Comments Urine Color (test code = 5778-6) YELLOW YELLOW [facility] AreaU[facility] Pofdkzv1315-25-80 19:58:00* Test Item Value Reference Range Interpretation Comments Urine Clarity (test code = 14104-8) CLOUDY CLEAR H [facility] AreaUrine Specific Nrvccyu8778-33-65 19:58:00 * Test Item Value Reference Range Interpretation Comments Urine Specific [place] (test code = 5811-5) 1.025 1.010-1.02 5 [facility] AreaU[facility] [id number] 19:58:00* Test Item Value Reference Range Interpretation Comments Urine pH (test code = 45227-3) 6 5-7 [facility] AreaU[facility] Leukocyte Fnyuujfo5833-80-00 19:58:00* Test Item Value Reference Range Interpretation Comments Urine Leukocyte Esterase (test code = 5799-2) 1+ NEGATIVE H [facility] AreaU[facility] Vlnubap9418-10-90 19:58:00* Test Item Value Reference Range Interpretation Comments Urine Nitrite (test code = 67726-4) NEGATIVE NEGATIVE [facility] AreaU[facility] Thataib4117-33-30 19:58:00* Test Item Value Reference Range Interpretation Comments Urine Protein (test code = 5804-0) 3+ NEGATIVE H [facility] AreaUrine Glucose (UA)2018-05-23 19:58:00* Test Item Value Reference Range Interpretation Comments Urine Glucose (UA) (test code = 2349-9) NEGATIVE NEGATIVE [facility] Ukcclmx9665-23-07 19:58:00* Test Item Value Reference Range Interpretation Comments Urine Ketones (test code = 80688-1) NEGATIVE NEGATIVE [facility] Yvhcgaanxyph0789-07-09 19:58:00* Test Item Value Reference Range Interpretation Comments Urine Urobilinogen (test code = 98200-2) 0.2 0.2-1 [facility] AreaU[facility] Ktxzobwpt7724-86-16 19:58:00* Test Item Value Reference Range Interpretation Comments Urine Bilirubin (test code = 1978-6) NEGATIVE NEGATIVE [facility] Azcfi2817-89-99 19:58:00* Test Item Value Reference Range Interpretation Comments Urine Blood (test code = 36984-3) 1+ NEGATIVE H [facility] AreaMagnesium Gjeda2083-01-99 08:37:00* Test Item Value Reference Range Interpretation Comments Magnesium Level (test code = 27616-2) 2.0 1.3-2.1 [facility] Jizmf9690-24-09 08:18:00* Test Item Value Reference Range Interpretation Comments Sodium Level (test code = 2951-2) 140 136-145 [facility] AreaPotassium Blpwh9492-51-03 08:18:00* Test Item Value Reference Range Interpretation Comments Potassium Level (test code = 2823-3) 3.8 3.5-5.1 [facility] AreaChloride Rkswb5494-12-84 08:18:00* Test Item Value Reference Range Interpretation Comments Chloride Level (test code = 2075-0) 104 98-107 [facility] AreaCarbon Dioxide Lnqsg9408-74-72 08:18:00* Test Item Value Reference Range Interpretation Comments Carbon Dioxide Level (test code = 2028-9) 22 22-29 [facility] AreaAnion Mng0543-11-15 08:18:00* Test Item Value Reference Range Interpretation Comments Anion Gap (test code = 75297-0) 17.8 8-16 H [facility] AreaBlood Urea Czkxjbbn5887-69-18 08:18:00* Test Item Value Reference Range Interpretation Comments Blood Urea Nitrogen (test code = 3094-0) 30 7-26 H [facility] AreaCreatinine2018-12-30 08:18:00* Test Item Value Reference Range Interpretation Comments Creatinine (test code = 2160-0) 2.76 0.57-1.11 H [facility] AreaBUN/Creatinine Ryngk8977-22-34 08:18:00* Test Item Value Reference Range Interpretation Comments BUN/Creatinine Ratio (test code = 3097-3) 11 6-25 [facility] AreaEstimat Glomerular Filtration Rate 2018-03-21 08:18:00* Test Item Value Reference Range Interpretation Comments Estimat Glomerular Filtration Rate (test code = 698076112) 17 >60 L Ranges were taken from the National Kidney Disease Education Program and the [facility] [employer] literature.Reference ranges:60 or greater: Mfbovh90-35 ( for 3 consecutive months): Chronic kidney disease 15 or less: Kidney failureCorpus [facility]i [facility] Bay AreaGlucose Yytur5891-13-61 08:18:00* Test Item Value Reference Range Interpretation Comments Glucose Level (test code = DUA0479) 94 74-118 [facility] AreaCalcium Miuxu0128-74-49 08:18:00* Test Item Value Reference Range Interpretation Comments Calcium Level (test code = 61971-8) 9.6 8.4-10.2 [facility] AreaTotal Amrhubomn6152-37-79 08:18:00* Test Item Value Reference Range Interpretation Comments Total Bilirubin (test code = 1975-2) 0.4 0.2-1.2 [facility] AreaAspartate Amino Transf (AST/SGOT) 2018-03-21 08:18:00* Test Item Value Reference Range Interpretation Comments Aspartate Amino Transf (AST/SGOT) (test code = Aspartate Amino Transf (AST/SGOT)) 18 5-34 [facility] AreaAlanine Aminotransferase (ALT/SGPT) 2018-03-21 08:18:00* Test Item Value Reference Range Interpretation Comments Alanine Aminotransferase (ALT/SGPT) (test code = 1742-6) 12 0-55 [facility] AreaTotal Kbbgctp3817-91-54 08:18:00* Test Item Value Reference Range Interpretation Comments Total Protein (test code = 2885-2) 7.2 6.5-8.1 [facility] AreaAlbumin2018-12-30 08:18:00* Test Item Value Reference Range Interpretation Comments Albumin (test code = 1751-7) 2.6 3.5-5.0 L [facility] AreaGlobulin2018-12-30 08:18:00* Test Item Value Reference Range Interpretation Comments Globulin (test code = 93517-1) 4.6 2.3-3.5 H [facility] AreaAlbumin/Globulin Tjudc3746-43-98 08:18:00 * Test Item Value Reference Range Interpretation Comments Albumin/Globulin Ratio (test code = 1759-0) 0.6 0.8-2.0 L [facility] AreaAlkaline Kcgooretwun1717-73-76 08:18:00* Test Item Value Reference Range Interpretation Comments Alkaline Phosphatase (test code = 6768-6) 78 40-150 [facility] AreaWhite Blood Xinbi7667-84-35 07:46:00* Test Item Value Reference Range Interpretation Comments White Blood Count (test code = 6690-2) 17.06 4.8-10.8 H [facility] AreaRed Blood Qvizr6896-34-58 07:46:00* Test Item Value Reference Range Interpretation Comments Red Blood Count (test code = 789-8) 3.81 3.6-5.1 [facility] AreaHemoglobin2018-12-30 07:46:00* Test Item Value Reference Range Interpretation Comments Hemoglobin (test code = 78732-3) 10.0 12.0-16.0 L [facility] AreaHematocrit2018-12-30 07:46:00* Test Item Value Reference Range Interpretation Comments Hematocrit (test code = 4544-3) 32.9 34.2-44.1 L [facility] AreaMean Corpuscular Mtlllp4277-02-17 07:46:00* Test Item Value Reference Range Interpretation Comments Mean Corpuscular Volume (test code = 787-2) 86.4 81-99 [facility] AreaMean Corpuscular Tdanmxymqu5907-46-49 07:46:00* Test Item Value Reference Range Interpretation Comments Mean Corpuscular Hemoglobin (test code = 785-6) 26.2 28-32 L [facility] AreaMean Corpuscular Hemoglobin Concent 2018-03-21 07:46:00* Test Item Value Reference Range Interpretation Comments Mean Corpuscular Hemoglobin Concent (test code = 786-4) 30.4 31-35 L [facility] AreaRed Cell Distribution Mfhxv0381-78-83 07:46:00* Test Item Value Reference Range Interpretation Comments Red Cell Distribution Width (test code = 98407-3) 16.0 11.7 -14.4 H [facility] AreaPlatelet Plbvy3422-02-04 07:46:00* Test Item Value Reference Range Interpretation Comments Platelet Count (test code = 777-3) 727 140-360 H [facility] AreaNeutrophils (%) (Auto)2018-03-21 07:46:00 * Test Item Value Reference Range Interpretation Comments Neutrophils (%) (Auto) (test code = 03558-9) 56.8 38.7-80.0 [facility] AreaLymphocytes (%) (Auto)2018-03-21 07:46:00 * Test Item Value Reference Range Interpretation Comments Lymphocytes (%) (Auto) (test code = 736-9) 29.5 18.0-39.1 [facility] AreaMonocytes (%) (Auto)2018-03-21 07:46:00* Test Item Value Reference Range Interpretation Comments Monocytes (%) (Auto) (test code = 5905-5) 7.6 4.4-11.3 [facility] AreaEosinophils (%) (Auto)2018-03-21 07:46:00 * Test Item Value Reference Range Interpretation Comments Eosinophils (%) (Auto) (test code = 713-8) 4.7 0.0-6.0 [facility] AreaBasophils (%) (Auto)2018-03-21 07:46:00* Test Item Value Reference Range Interpretation Comments Basophils (%) (Auto) (test code = 706-2) 0.5 0.0-1.0 [facility] AreaIM GRANULOCYTES %2018-03-21 07:46:00* Test Item Value Reference Range Interpretation Comments IM GRANULOCYTES % (test code = IM GRANULOCYTES %) 0.9 0.0- 1.0 [facility] AreaNeutrophils # (Auto)2018-03-21 07:46:00* Test Item Value Reference Range Interpretation Comments Neutrophils # (Auto) (test code = 751-8) 9.7 2.1-6.9 H [facility] AreaLymphocytes # (Auto)2018-03-21 07:46:00* Test Item Value Reference Range Interpretation Comments Lymphocytes # (Auto) (test code = 13621-3) 5.0 1.0-3.2 H [facility] AreaMonocytes # (Auto)2018-03-21 07:46:00* Test Item Value Reference Range Interpretation Comments Monocytes # (Auto) (test code = 742-7) 1.3 0.2-0.8 H [facility] AreaEosinophils # (Auto)2018-03-21 07:46:00* Test Item Value Reference Range Interpretation Comments Eosinophils # (Auto) (test code = 711-2) 0.8 0.0-0.4 H [facility] AreaBasophils # (Auto)2018-03-21 07:46:00* Test Item Value Reference Range Interpretation Comments Basophils # (Auto) (test code = 704-7) 0.1 0.0-0.1 [facility] AreaAbsolute Immature Granulocyte (auto 2018-03-21 07:46:00* Test Item Value Reference Range Interpretation Comments Absolute Immature Granulocyte (auto (ortega t code = Absolute Immature Granulocyte (auto) 0.15 0-0.1 H [facility] AreaCHEST 2 VGIWR5980-02-82 09:20:00 [place] [address] Patient Name: GABBIE TOBIN MR #: [id number] : 1955 Age/Sex: 62/F Req #: [id number] Adm Physician: KYLEE ACOSTA MD Ordered by: PINA RUCKER MD Report #: [id number] Location: [facility] Room/Bed: [facility] Procedure: [id number] DX/C HEST 2 VIEWS Exam Date: 03/17/18 Exam Time: 0830 REPORT STATUS: Signed PROCEDURE: X- RAY CHEST, TWO VIEWS COMPARISON: 03/15/2018. INDICATIONS: PNEUMONIA FI NDINGS: LUNGS: Opacity previously identified in the right upper lobe has resolved. It therefore likely was secondary to atelectasis. Mild pulmonar y vascular congestion. PLEURA: No effusions or pneumothorax. HEAR T MEDIASTINUM: The heart is enlarged. BONES SOFT TISSUES: No acu te findings. CONCLUSION: Mild pulmonary vascular congestion. Kim Villar D.O. Dictated by: Kim Villar D.O. on 03/17/2018 a t 9:20 Electronically approved by: Kim Villar D.O. on 03/17/2018 at 9:20 Dictated By: KIM VILLAR DO 9 Transcribed By: SUSU on 03/17/18919 COPY TO: PINA RUCKER MD Prothrombin Cauo1274-43-42 07:26:00* Test Item Value Reference Range Interpretation Comments Prothrombin Time (test code = 5902-2) 31.1 11.9-14.5 H [facility] AreaProthromb Time International Ratio 2018-03-17 07:26:00* Test Item Value Reference Range Interpretation Comments Prothromb Time International Ratio (test code = 6301-6) 2.75 Oral Anticoagulant Therapy INR Values:1. Low Intensity Therapy 1.5 - 2.02 . Moderate Intensity Therapy 2.0 - 3.03. High Intensity Therapy(1) 2.5 - 3. 54. High Intensity Therapy(2) 3.0 - 4.05. Panic Value INR > 5.0 [facility] AreaRed Cell Morphology Ecbdwan4277-34-79 06:12:00* Test Item Value Reference Range Interpretation Comments Red Cell Morphology Comment (test code = 6742-1) NORMAL [facility] AreaRed Cell Morphology Xgysyuy8760-31-62 06:12:00* Test Item Value Reference Range Interpretation Comments Red Cell Morphology Comment (test code = 6742-1) NORMAL [facility] AreaRed Cell Morphology Svkvdca9765-02-63 06:12:00* Test Item Value Reference Range Interpretation Comments Red Cell Morphology Comment (test code = 6742-1) NORMAL [facility] AreaDifferential Total Cells Counted 2018-03-17 06:07:00* Test Item Value Reference Range Interpretation Comments Differential Total Cells Counted (test code = Differen tial Total Cells Counted) 100 [facility] AreaNeutrophils % (Manual)2018-03-17 06:07:00 * Test Item Value Reference Range Interpretation Comments Neutrophils % (Manual) (test code = 55174-1) 63 40-74 [facility] AreaBand Neutrophils %2018-03-17 06:07:00* Test Item Value Reference Range Interpretation Comments Band Neutrophils % (test code = 764-1) 2 [facility] AreaLymphocytes % (Manual)2018-03-17 06:07:00 * Test Item Value Reference Range Interpretation Comments Lymphocytes % (Manual) (test code = 737-7) 21 19-48 [facility] AreaMonocytes % (Manual)2018-03-17 06:07:00* Test Item Value Reference Range Interpretation Comments Monocytes % (Manual) (test code = 744-3) 11 3.4-9.0 H [facility] AreaEosinophils % (Manual)2018-03-17 06:07:00 * Test Item Value Reference Range Interpretation Comments Eosinophils % (Manual) (test code = 714-6) 2 0-7 [facility] AreaBasophils % (Manual)2018-03-17 06:07:00* Test Item Value Reference Range Interpretation Comments Basophils % (Manual) (test code = 80572-3) 1 0-1.5 [facility] AreaPlatelet Skzbmtwo9791-57-74 06:07:00* Test Item Value Reference Range Interpretation Comments Platelet Estimate (test code = 92187-5) MODERATELY INCREASED [facility] AreaPlatelet Morphology Lvxdxhu6579-87-75 06:07:00* Test Item Value Reference Range Interpretation Comments Platelet Morphology Comment (test code = 84698-1) FEW LARGE [facility] AreaPoikilocytosis2018-12-26 06:07:00* Test Item Value Reference Range Interpretation Comments Poikilocytosis (test code = 779-9) SLIGHT [facility] AreaAnisocytosis2018-12-26 06:07:00* Test Item Value Reference Range Interpretation Comments Anisocytosis (test code = 702-1) S [facility] AreaDifferential Total Cells Counted 2018-03-17 06:07:00* Test Item Value Reference Range Interpretation Comments Differential Total Cells Counted (test code = Dhaval acostal Total Cells Counted) 100 [facility] AreaNeutrophils % (Manual)2018-03-17 06:07:00 * Test Item Value Reference Range Interpretation Comments Neutrophils % (Manual) (test code = 49112-5) 63 40-74 [facility] AreaBand Neutrophils %2018-03-17 06:07:00* Test Item Value Reference Range Interpretation Comments Band Neutrophils % (test code = 764-1) 2 [facility] AreaLymphocytes % (Manual)2018-03-17 06:07:00 * Test Item Value Reference Range Interpretation Comments Lymphocytes % (Manual) (test code = 737-7) 21 19-48 [facility] AreaMonocytes % (Manual)2018-03-17 06:07:00* Test Item Value Reference Range Interpretation Comments Monocytes % (Manual) (test code = 744-3) 11 3.4-9.0 H [facility] AreaEosinophils % (Manual)2018-03-17 06:07:00 * Test Item Value Reference Range Interpretation Comments Eosinophils % (Manual) (test code = 714-6) 2 0-7 [facility] AreaBasophils % (Manual)2018-03-17 06:07:00* Test Item Value Reference Range Interpretation Comments Basophils % (Manual) (test code = 42360-5) 1 0-1.5 [facility] AreaPlatelet Wbglwmbi8349-78-39 06:07:00* Test Item Value Reference Range Interpretation Comments Platelet Estimate (test code = 22631-4) MODERATELY INCREASED [facility] AreaPlatelet Morphology Muhdima9419-43-33 06:07:00* Test Item Value Reference Range Interpretation Comments Platelet Morphology Comment (test code = 22397-9) FEW LARGE [facility] AreaPoikilocytosis2018-12-26 06:07:00* Test Item Value Reference Range Interpretation Comments Poikilocytosis (test code = 779-9) SLIGHT [facility] AreaAnisocytosis2018-12-26 06:07:00* Test Item Value Reference Range Interpretation Comments Anisocytosis (test code = 702-1) S [facility] AreaDifferential Total Cells Counted 2018-03-17 06:07:00* Test Item Value Reference Range Interpretation Comments Differential Total Cells Counted (test code = Differkari tial Total Cells Counted) 100 [facility] AreaNeutrophils % (Manual)2018-03-17 06:07:00 * Test Item Value Reference Range Interpretation Comments Neutrophils % (Manual) (test code = 14138-0) 63 40-74 [facility] AreaBand Neutrophils %2018-03-17 06:07:00* Test Item Value Reference Range Interpretation Comments Band Neutrophils % (test code = 764-1) 2 [facility] AreaLymphocytes % (Manual)2018-03-17 06:07:00 * Test Item Value Reference Range Interpretation Comments Lymphocytes % (Manual) (test code = 737-7) 21 19-48 [facility] AreaMonocytes % (Manual)2018-03-17 06:07:00* Test Item Value Reference Range Interpretation Comments Monocytes % (Manual) (test code = 744-3) 11 3.4-9.0 H [facility] AreaEosinophils % (Manual)2018-03-17 06:07:00 * Test Item Value Reference Range Interpretation Comments Eosinophils % (Manual) (test code = 714-6) 2 0-7 [facility] AreaBasophils % (Manual)2018-03-17 06:07:00* Test Item Value Reference Range Interpretation Comments Basophils % (Manual) (test code = 18691-2) 1 0-1.5 [facility] AreaPlatelet Qsmuxxul1263-49-76 06:07:00* Test Item Value Reference Range Interpretation Comments Platelet Estimate (test code = 90424-1) MODERATELY INCREASED [facility] AreaPlatelet Morphology Wgbzrjk8343-44-65 06:07:00* Test Item Value Reference Range Interpretation Comments Platelet Morphology Comment (test code = 33285-5) FEW LARGE [facility] AreaPoikilocytosis2018-12-26 06:07:00* Test Item Value Reference Range Interpretation Comments Poikilocytosis (test code = 779-9) SLIGHT [facility] AreaAnisocytosis2018-12-26 06:07:00* Test Item Value Reference Range Interpretation Comments Anisocytosis (test code = 702-1) S [facility] AreaMicrocytosis2018-12-25 06:41:00* Test Item Value Reference Range Interpretation Comments Microcytosis (test code = 741-9) SLIGHT [facility] AreaMicrocytosis2018-12-25 06:41:00* Test Item Value Reference Range Interpretation Comments Microcytosis (test code = 741-9) SLIGHT [facility] AreaMicrocytosis2018-12-25 06:41:00* Test Item Value Reference Range Interpretation Comments Microcytosis (test code = 741-9) SLIGHT [facility] AreaCHEST 2 PFRMA2146-84-52 15:04:00 [facility] [address] [place] [address] Patient Name: GABBIE TOBIN MR #: [id number] : 1955 Age/Sex: 62/F Req #: [id number] Adm Physician: KYLEE ACOSTA MD Ordered by: AN POWELL MD Report #: [id number] Location: MED/SURG[address] [place] [address]/Bed: [facility] Procedure: [id number] DX/CHEST 2 VIEWS Exam Date: Exam Time: [...] MD, MD 06 Transcribed By: ALEXIA on 03/15/181506 COPY TO: AN STACY MD Qyioomnxmhpkb3857-59-36 09:12:00* Test Item Value Reference Range Interpretation Comments Hypochromasia (test code = 728-6) MODERATE [facility] AreaHypochromasia2018-12-24 09:12:00* Test Item Value Reference Range Interpretation Comments Hypochromasia (test code = 728-6) MODERATE [facility] AreaHypochromasia2018-12-24 09:12:00* Test Item Value Reference Range Interpretation Comments Hypochromasia (test code = 728-6) MODERATE [facility] AreaCT ABDOMEN/PELVIS AT3311-18-65 08:48:00 [place] [address] Patient Name: GABBIE TOBIN MR #: [id number] : 1955 Age/Sex: 62/F Req #: [id number] Adm Physician: KYLEE ACOSTA MD Ordered by: PINA RUCKER MD Report #: [id number] Location: MED/SURG3 Room/Bed: [facility] Procedure: [id number] CT/C T ABDOMEN/PELVIS WO Exam Date: 03/15/18 [...] RADIATION DOSE: Total DLP: 846.9 mGy*cm COMPLICATIONS: Non e FINDINGS: LINES and TUBES: None. LOWER THORAX: Unchanged calcifie d granuloma in the left lower lobe. Coronary [...] 9:01 AM Dictated By: BUFFY GUZMAN MD 1725 Transcribed By: ALEXIA on 03/15/18 0901 COPY TO: PINA RUCKER MD Bedside Zqgnxih9173-21-26 16:27:00* Test Item Value Reference Range Interpretation Comments Bedside Glucose (test code = 06175-9) 356 70-120 H Meter ID: [id number] [facility] Glucose 2018-03-14 16:27:00* Test Item Value Reference Range Interpretation Comments Bedside Glucose (test code = 39468-4) 356 70-120 H Meter ID: [id number] [facility] Glucose 2018-03-14 16:27:00* Test Item Value Reference Range Interpretation Comments Bedside Glucose (test code = 07279-1) 356 70-120 H Meter ID: [id number] [facility] 2018-03-10 12:12:00 [place] [address] Patient Name: GABBIE TOBIN MR #: [id number] : 1955 Age/Sex: 62/F Req #: [id number] Adm Physician: KYLEE ACOSTA MD Ordered by: AN POWELL MD Report #: [id number] Location: MED/SURG3 Room/Bed: 287-1 Procedure: [id number] DX/CHEST 2 VIEWS Exam Date: 03/10/18 Exam [...] Signed By: MAMADOU ENCARNACION MD on 03/10/18 1213 Transcribed By: COM SO on 03/10/18 1213 COPY TO: AN POWELL MD Lactic Acid Level 2018-03-10 10:15:00* Test Item Value Reference Range Interpretation Comments Lactic Acid Level (test code = Lactic Acid Level) 7.8 4.5- 19.8 [facility] AreaLactic Acid Xemwv4588-16-32 10:15:00* Test Item Value Reference Range Interpretation Comments Lactic Acid Level (test code = Lactic Acid Level) 7.8 4.5- 19.8 [facility] AreaLactic Acid Nsong7356-17-58 10:15:00* Test Item Value Reference Range Interpretation Comments Lactic Acid Level (test code = Lactic Acid Level) 7.8 4.5- 19.8 [facility] AreaUrine NXY5461-17-61 10:53:00* Test Item Value Reference Range Interpretation Comments Urine WBC (test code = 5821-4) NONE 0-5 [facility] AreaUrine PIS7180-06-50 10:53:00* Test Item Value Reference Range Interpretation Comments Urine RBC (test code = 59295-1) 21-50 0-5 H [facility] AreaUrine Nttbpcma2919-32-27 10:53:00* Test Item Value Reference Range Interpretation Comments Urine Bacteria (test code = 98278-4) FEW NONE [facility] AreaUrine Epithelial Pawli9043-75-91 10:53:00 * Test Item Value Reference Range Interpretation Comments Urine Epithelial Cells (test code = 29762-7) FEW NONE [facility] AreaUrine Tqtvc0336-10-74 10:29:00* Test Item Value Reference Range Interpretation Comments Urine Color (test code = 5778-6) YELLOW YELLOW [facility] AreaU[facility] Agihlml9575-54-03 10:29:00* Test Item Value Reference Range Interpretation Comments Urine Clarity (test code = 01494-7) SL CLOUDY CLEAR [facility] AreaUrine Specific Evjvjgu3718-37-13 10:29:00 * Test Item Value Reference Range Interpretation Comments Urine Specific [place] (test code = 5811-5) 1.025 1.010-1.02 5 [facility] AreaUrine zP0174-92-87 10:29:00* Test Item Value Reference Range Interpretation Comments Urine pH (test code = 76523-9) 6 5-7 [facility] Leukocyte Evyfunkh8614-94-77 10:29:00* Test Item Value Reference Range Interpretation Comments Urine Leukocyte Esterase (test code = 5799-2) NEGATIVE NEGATIVE [facility] AreaU[facility] Urckkmg1140-32-95 10:29:00* Test Item Value Reference Range Interpretation Comments Urine Nitrite (test code = 73768-2) NEGATIVE NEGATIVE [facility] AreaUrine Ltwmjqg6568-00-16 10:29:00* Test Item Value Reference Range Interpretation Comments Urine Protein (test code = 5804-0) 3+ NEGATIVE H [facility] AreaUrine Glucose (UA)2018-03-09 10:29:00* Test Item Value Reference Range Interpretation Comments Urine Glucose (UA) (test code = 2349-9) NEGATIVE NEGATIVE [facility] AreaUrine Pcluejj2031-59-25 10:29:00* Test Item Value Reference Range Interpretation Comments Urine Ketones (test code = 47491-4) NEGATIVE NEGATIVE [facility] AreaU[facility] Dbmeenuxrzwa2949-26-48 10:29:00* Test Item Value Reference Range Interpretation Comments Urine Urobilinogen (test code = 36646-1) 0.2 0.2-1 [facility] AreaU[facility] Krjplblxk7070-27-64 10:29:00* Test Item Value Reference Range Interpretation Comments Urine Bilirubin (test code = 1978-6) NEGATIVE NEGATIVE [facility] AreaU[facility] Kknjk4343-12-12 10:29:00* Test Item Value Reference Range Interpretation Comments Urine Blood (test code = 94150-2) 3+ NEGATIVE H [facility] AreaCT ABDOMEN/PELVIS DV4637-73-12 15:43:00 [place] [address] Patient Name: GABBIE TOBIN MR #: [id number] : 1955 Age/Sex: 62/F Req #: [id number] Adm Physician: KYLEE ACOSTA MD Ordered by: AN POWELL MD Report #: [id number] Location: MED/SURG3 [facility]/Bed: 287-1 Procedure: [id number] CT/CT AB DOMEN/PELVIS WO Exam Date: 03/07/18 Exam Time: 1432 REPORT STATUS: Signed EXAM: CT A bdomen and Pelvis WITHOUT contrast INDICATION: STONE PROTOCOL. PERS JAYET L FLANK PAINS. [id number] COMPARISON: CT [...] size factor) mSv COMPLICATIONS: None FINDINGS: LINES an d TUBES: None. LOWER THORAX: Unchanged small calcified [...] M.D. on 03/07/20 4:08 PM Dictated By: CLEIA OWENS MD 07 Transcribed By: ALEXIA on 1607 COPY TO: AN POWELL MD WRIST COMPLETE OARAI0375-29-44 11:47:00 [place] [address] Patient Name: GABBIE TOBIN MR #: [id number] : 1955 Age/Sex: 62/F Req #: [id number] Adm Physician: KYLEE ACOSTA MD Ordered by: PINA RUCKER MD Report #: [id number] Location: MED/SURG3 Room/Bed: [facility] Procedure: [id number] DX/W RIST COMPLETE RIGHT Exam Date: 03/06/18 [...] 11:48 AM Dictated By: Ni POWELL MD 47 Transcribed By : ALEXIA on 03/06/181147 COPY TO: PINA RUCKER MD ELBOW RIGHT WXDDREZC2859-51-11 11:44:00 [place] [address] Patient Name: GABBIE TOBIN MR #: [id number] : 1955 Age/Sex: 62/F Req #: [id number] Adm Physician: KYLEE ACOSTA MD Ordered by: PINA RUCKER MD Report #: [id number] Location: [facility]/SURG3 Room/Bed: [facility] Procedure: [id number] DX/E LBOW RIGHT COMPLETE Exam Date: 03/06/18 [...] 11:47 AM Dictated By: JERONIMO POWELL MD 114 Transcribed By: ALEXIA on 03/06/181146 COPY TO: PINA RUCKER Urine Zzakvah5290-90-85 07:55:00* Test Item Value Reference Range Interpretation Comments Urine Culture (test code = 630-4) Organism: ESCHERICHIA COLI [facility]PELVIS LD2329-18-19 15:53:00 [facility] [address] [place] [address] Patient Name: GABBIE TOBIN MR #: [id number] : 1955 Age/Sex: 62/F Req #: [id number] Adm Physician: Ordered by: FLAKITA GIRARD MD Report #: [id number] Location: ER Room/Bed: Procedure: [id number] C T/CT ABDOMEN/PELVIS WO Exam Date: Exam Time: REPORT STATUS: Signed EXAM: CT of th e abdomen and pelvis WITHOUT contrast HISTORY: Left [...] TO: FLAKITA GIRARD MD Urine Transitional Epithelial Ixsdp4249-65-63 13:43:00* Test Item Value Reference Range Interpretation Comments Urine Transitional Epithelial Cells (test code = 8249-5) RARE NONE [facility] Renal Epithelial Imyvh5732-72-89 13:43:00* Test Item Value Reference Range Interpretation Comments Urine Renal Epithelial Cells (test code = 15559-7) FEW NON E [facility] Transitional Epithelial Cells 2018-03-03 13:43:00* Test Item Value Reference Range Interpretation Comments Urine Transitional Epithelial Cells (test code = 8249-5) RARE NONE [facility] Renal Epithelial Xegml8235-85-26 13:43:00* Test Item Value Reference Range Interpretation Comments Urine Renal Epithelial Cells (test code = 16262-0) FEW NON E [facility] Transitional Epithelial Cells 2018-03-03 13:43:00* Test Item Value Reference Range Interpretation Comments Urine Transitional Epithelial Cells (test code = 8249-5) RARE NONE [facility] Renal Epithelial Pneum0894-56-68 13:43:00* Test Item Value Reference Range Interpretation Comments Urine Renal Epithelial Cells (test code = 10605-8) FEW NON E [facility] CampusKNEE LEFT THREE GTOFK9874-90-73 23:56:00 [place] [address] Patient Name: GABBIE TOBIN MR #: [id number] : 1955 Age/Sex: 62/F Req #: [id number] Adm Physician: Ordered by: RONY RONDON MD Report #: [id number] Location: ER Room/Bed: Procedure: D X/KNEE LEFT THREE VIEWS Exam Date: 01/25/18 Exam Kade e: 2317 REPORT STATUS: Signed KN EE LEFT THREE VIEWS HISTORY: Status post fall down stairs. Pain to left h ip and knee. COMPARISON: None available. FINDINGS: Bones: No ac [place] displaced fracture. Osseous alignment is within normal limits. Join ts: Advanced tricompartmental degenerative changes. Soft tissues: Small joint effusion. Vascular calcifications. IMPRESSION: No acute radiograp hic abnormality. Signed by: DR. Bird Haynes MD on 01/25/2018 11:58 PM Dictated By: BIRD HAYNES MD 57 Transcribed By: ALEXIA on 01/25/182357 COPY TO: RONY DIAMOND MD HIP LEFT 2-3 VW (+/- PELVIS)2018-01-25 23:54:00 [place] [address] Patient Name: GABBIE TOBIN MR #: [id number] : 1955 Age/Sex: 62/F Req #: [id number] Adm Physician: Ordered by: RONY RONDON MD Report #: [id number] Location: ER Room/Bed: Procedure: D X/HIP LEFT 2-3 VW (+/- PELVIS) [...] PM Dicta richie By: BIRD HAYNES MD 55 Transcribed By: ALEXIA on 01/25/182355 COPY TO: RONY RONDON MD CT LUMBAR SPINE HS0553-32-67 23:22:00 [place] [address] Patient Name: GABBIE TOBIN MR #: [id number] : 1955 Age/Sex: 62/F Req #: [id number] Adm Physician: Ordered by: RONY RONDON MD Report #: [id number] Location: ER Room/Bed: Procedure: [id number] C T/CT LUMBAR SPINE WO Exam Date: 01/25/18 Exam Time: 2309 REPORT STATUS: Signed [place]: CT LUMBAR SPINE WITHOUT CONTRAST History: Low back pain after traum a. Comparison studies: None Technique: [facility] the lumbar spine from T12. Coronal [...] Audrey Covington M.D. on 01/25/2018 11:39 PM Dictate d By: AUDREY DAMIAN MD 38 Transcribed By: ALEXIA on 01/25/182338 COPY T O: RONY RONDON MD Wound Pepjamt5202-31-51 10:10:00* Test Item Value Reference Range Interpretation Comments Wound Culture (test code = 6462-6) Organism: STAPHYLOCOCCUS AUREUS [facility] AreaWound Gultknn0660-91-50 10:10:00* Test Item Value Reference Range Interpretation Comments Wound Culture (test code = 6462-6) Organism: STAPHYLOCOCCUS AUREUS [facility] AreaBlood Ghckbru3891-03-22 08:58:00* Test Item Value Reference Range Interpretation Comments Blood Culture (test code = 61248934) NO GROWTH AFTER 5 DAYS, FINAL REPORT [facility] AreaBlood Velugdm1550-35-48 08:58:00* Test Item Value Reference Range Interpretation Comments Blood Culture (test code = 22986685) NO GROWTH AFTER 5 DAYS, FINAL REPORT [facility] AreaDifferential Total Cells Counted 2017-07-23 09:43:00* Test Item Value Reference Range Interpretation Comments Differential Total Cells Counted (test code = Dhaval acostal Total Cells Counted) 100 [facility] AreaNeutrophils % (Manual)2017-07-23 09:43:00 * Test Item Value Reference Range Interpretation Comments Neutrophils % (Manual) (test code = 42176-3) 65 40-74 [facility] AreaLymphocytes % (Manual)2017-07-23 09:43:00 * Test Item Value Reference Range Interpretation Comments Lymphocytes % (Manual) (test code = 737-7) 24 19-48 [facility] AreaMonocytes % (Manual)2017-07-23 09:43:00* Test Item Value Reference Range Interpretation Comments Monocytes % (Manual) (test code = 744-3) 7 3.4-9.0 [facility] AreaEosinophils % (Manual)2017-07-23 09:43:00 * Test Item Value Reference Range Interpretation Comments Eosinophils % (Manual) (test code = 714-6) 4 0-7 [facility] AreaPlatelet Ttujzaii6257-56-90 09:43:00* Test Item Value Reference Range Interpretation Comments Platelet Estimate (test code = 60692-4) ADEQUATE [facility] AreaPlatelet Morphology Hfywfwj4644-79-33 09:43:00* Test Item Value Reference Range Interpretation Comments Platelet Morphology Comment (test code = 04920-4) NORMAL [facility] AreaHypochromasia2018-05-03 09:43:00* Test Item Value Reference Range Interpretation Comments Hypochromasia (test code = 728-6) SLIGHT [facility] AreaPoikilocytosis2018-05-03 09:43:00* Test Item Value Reference Range Interpretation Comments Poikilocytosis (test code = 779-9) SLIGHT [facility] AreaAnisocytosis2018-05-03 09:43:00* Test Item Value Reference Range Interpretation Comments Anisocytosis (test code = 702-1) SLIGHT [facility] AreaRed Cell Morphology Nwdlyqa0841-47-85 09:43:00* Test Item Value Reference Range Interpretation Comments Red Cell Morphology Comment (test code = 6742-1) NORMAL [facility] AreaWhite Blood Zsxct9022-30-39 07:35:00* Test Item Value Reference Range Interpretation Comments White Blood Count (test code = 6690-2) 15.91 4.8-10.8 H [facility] AreaRed Blood Rsiko9653-10-82 07:35:00* Test Item Value Reference Range Interpretation Comments Red Blood Count (test code = 789-8) 3.46 3.6-5.1 L [facility] AreaHemoglobin2018-05-03 07:35:00* Test Item Value Reference Range Interpretation Comments Hemoglobin (test code = 45411-2) 9.4 12.0-16.0 L [facility] AreaHematocrit2018-05-03 07:35:00* Test Item Value Reference Range Interpretation Comments Hematocrit (test code = 4544-3) 29.2 34.2-44.1 L [facility] AreaMean Corpuscular Pvbjmn7079-08-85 07:35:00* Test Item Value Reference Range Interpretation Comments Mean Corpuscular Volume (test code = 787-2) 84.4 81-99 [facility] AreaMean Corpuscular Vdtqjjkwdl9187-38-15 07:35:00* Test Item Value Reference Range Interpretation Comments Mean Corpuscular Hemoglobin (test code = 785-6) 27.2 28-32 L [facility] AreaMean Corpuscular Hemoglobin Concent 2017-07-23 07:35:00* Test Item Value Reference Range Interpretation Comments Mean Corpuscular Hemoglobin Concent (test code = 786-4) 32.2 31-35 [facility] AreaRed Cell Distribution Rhhev6671-77-98 07:35:00* Test Item Value Reference Range Interpretation Comments Red Cell Distribution Width (test code = 18790-7) 15.2 11.7 -14.4 H [facility] AreaPlatelet Rvjch6283-50-44 07:35:00* Test Item Value Reference Range Interpretation Comments Platelet Count (test code = 777-3) 469 140-360 H [facility] AreaNeutrophils (%) (Auto)2017-07-23 07:35:00 * Test Item Value Reference Range Interpretation Comments Neutrophils (%) (Auto) (test code = 95543-9) 65.2 38.7-80.0 [facility] AreaLymphocytes (%) (Auto)2017-07-23 07:35:00 * Test Item Value Reference Range Interpretation Comments Lymphocytes (%) (Auto) (test code = 736-9) 20.5 18.0-39.1 [facility] AreaMonocytes (%) (Auto)2017-07-23 07:35:00* Test Item Value Reference Range Interpretation Comments Monocytes (%) (Auto) (test code = 5905-5) 9.9 4.4-11.3 [facility] AreaEosinophils (%) (Auto)2017-07-23 07:35:00 * Test Item Value Reference Range Interpretation Comments Eosinophils (%) (Auto) (test code = 713-8) 2.6 0.0-6.0 [facility] AreaBasophils (%) (Auto)2017-07-23 07:35:00* Test Item Value Reference Range Interpretation Comments Basophils (%) (Auto) (test code = 706-2) 0.2 0.0-1.0 [facility] AreaIM GRANULOCYTES %2017-07-23 07:35:00* Test Item Value Reference Range Interpretation Comments IM GRANULOCYTES % (test code = IM GRANULOCYTES %) 1.6 0.0- 1.0 H [facility] AreaNeutrophils # (Auto)2017-07-23 07:35:00* Test Item Value Reference Range Interpretation Comments Neutrophils # (Auto) (test code = 751-8) 10.4 2.1-6.9 H [facility] AreaLymphocytes # (Auto)2017-07-23 07:35:00* Test Item Value Reference Range Interpretation Comments Lymphocytes # (Auto) (test code = 63851-8) 3.3 1.0-3.2 H [facility] AreaMonocytes # (Auto)2017-07-23 07:35:00* Test Item Value Reference Range Interpretation Comments Monocytes # (Auto) (test code = 742-7) 1.6 0.2-0.8 H [facility] AreaEosinophils # (Auto)2017-07-23 07:35:00* Test Item Value Reference Range Interpretation Comments Eosinophils # (Auto) (test code = 711-2) 0.4 0.0-0.4 [facility] AreaBasophils # (Auto)2017-07-23 07:35:00* Test Item Value Reference Range Interpretation Comments Basophils # (Auto) (test code = 704-7) 0.0 0.0-0.1 [facility] AreaAbsolute Immature Granulocyte (auto 2017-07-23 07:35:00* Test Item Value Reference Range Interpretation Comments Absolute Immature Granulocyte (auto (ortega t code = Absolute Immature Granulocyte (auto) 0.26 0-0.1 H [facility] AreaMagnesium Hgpcr4214-84-15 07:34:00* Test Item Value Reference Range Interpretation Comments Magnesium Level (test code = 89365-9) 1.6 1.3-2.1 [facility] Centerodium Acbvc6444-79-84 07:28:00* Test Item Value Reference Range Interpretation Comments Sodium Level (test code = 2951-2) 140 136-145 [facility] AreaPotassium Rbrlz2821-28-17 07:28:00* Test Item Value Reference Range Interpretation Comments Potassium Level (test code = 2823-3) 3.9 3.5-5.1 [facility] AreaChloride Oftao7038-55-23 07:28:00* Test Item Value Reference Range Interpretation Comments Chloride Level (test code = 2075-0) 112 98-107 H [facility] AreaCarbon Dioxide Byzpz5521-82-30 07:28:00* Test Item Value Reference Range Interpretation Comments Carbon Dioxide Level (test code = 2028-9) 19 22-29 L [facility] AreaAnion Ytn7324-73-09 07:28:00* Test Item Value Reference Range Interpretation Comments Anion Gap (test code = 36402-0) 12.9 8-16 [facility] AreaBlood Urea Cfuctwym3017-06-20 07:28:00* Test Item Value Reference Range Interpretation Comments Blood Urea Nitrogen (test code = 3094-0) 47 7-26 H [facility] AreaCreatinine2018-05-03 07:28:00* Test Item Value Reference Range Interpretation Comments Creatinine (test code = 2160-0) 2.30 0.57-1.11 H [facility] AreaBUN/Creatinine Ebayj5380-64-98 07:28:00* Test Item Value Reference Range Interpretation Comments BUN/Creatinine Ratio (test code = 3097-3) 20 6-25 [facility] AreaEstimat Glomerular Filtration Rate 2017-07-23 07:28:00* Test Item Value Reference Range Interpretation Comments Estimat Glomerular Filtration Rate (test code = 45199-5) 22 >60 L Ranges were taken from the National Kidney Disease Education Program and the [facility] [employer] literature.Reference ranges:60 or greater: Vrubcr15-85 ( for 3 consecutive months): Chronic kidney disease 15 or less: Kidney failureCorpus Christi Medical Center Bay AreaGlucose Kbqjt8479-81-07 07:28:00* Test Item Value Reference Range Interpretation Comments Glucose Level (test code = RAB5469) 118 74-118 [facility] AreaCalcium Fdywd0304-05-89 07:28:00* Test Item Value Reference Range Interpretation Comments Calcium Level (test code = 26471-6) 8.5 8.4-10.2 [facility] AreaTotal Pscerrebs0583-04-81 07:28:00* Test Item Value Reference Range Interpretation Comments Total Bilirubin (test code = 1975-2) 0.5 0.2-1.2 [facility] AreaAspartate Amino Transf (AST/SGOT) 2017-07-23 07:28:00* Test Item Value Reference Range Interpretation Comments Aspartate Amino Transf (AST/SGOT) (test code = Aspartate Amino Transf (AST/SGOT)) 13 5-34 [facility] AreaAlanine Aminotransferase (ALT/SGPT) 2017-07-23 07:28:00* Test Item Value Reference Range Interpretation Comments Alanine Aminotransferase (ALT/SGPT) (test code = 1742-6) 20 0-55 [facility] Bay AreaTotal Voaganz8261-22-65 07:28:00* Test Item Value Reference Range Interpretation Comments Total Protein (test code = 2885-2) 5.3 6.5-8.1 L [facility] AreaAlbumin2018-05-03 07:28:00* Test Item Value Reference Range Interpretation Comments Albumin (test code = 1751-7) 2.5 3.5-5.0 L [facility] AreaGlobulin2018-05-03 07:28:00* Test Item Value Reference Range Interpretation Comments Globulin (test code = 11128-4) 2.8 2.3-3.5 [facility] AreaAlbumin/Globulin Lieku9259-30-16 07:28:00 * Test Item Value Reference Range Interpretation Comments Albumin/Globulin Ratio (test code = 1759-0) 0.9 0.8-2.0 [facility] AreaAlkaline Rlzkehwpvbl2333-06-63 07:28:00* Test Item Value Reference Range Interpretation Comments Alkaline Phosphatase (test code = 6768-6) 60 40-150 [facility] AreaB-Type Natriuretic Wjvadil5703-77-24 10:39:00* Test Item Value Reference Range Interpretation Comments B-Type Natriuretic Peptide (test code = 09059-8) 63.7 0-100 [facility] AreaB-Type Natriuretic Tftynow6228-16-62 10:39:00* Test Item Value Reference Range Interpretation Comments B-Type Natriuretic Peptide (test code = 52355-3) 63.7 0-100 [facility] AreaReactive Vkpekmngmfo3747-28-00 08:17:00* Test Item Value Reference Range Interpretation Comments Reactive Lymphocytes (test code = 68769-7) 3 [facility] AreaReactive Osbhzxnywap0518-48-00 08:17:00* Test Item Value Reference Range Interpretation Comments Reactive Lymphocytes (test code = 37829-9) 3 [facility] AreaCreatine Kinase RV8309-15-45 00:53:00* Test Item Value Reference Range Interpretation Comments Creatine Kinase MB (test code = 88277-4) 0.80 0-5.0 [facility] AreaTroponin E5760-58-69 00:53:00* Test Item Value Reference Range Interpretation Comments Troponin I (test code = ZOT1790) 0.065 0-0.300 [facility] AreaCreatine Kinase [id number] 00:53:00* Test Item Value Reference Range Interpretation Comments Creatine Kinase MB (test code = 64202-7) 0.80 0-5.0 [facility] AreaTroponin B8041-19-51 00:53:00* Test Item Value Reference Range Interpretation Comments Troponin I (test code = OMO4599) 0.065 0-0.300 [facility] AreaCreatine Daojqi7690-68-30 00:44:00* Test Item Value Reference Range Interpretation Comments Creatine Kinase (test code = 2157-6) 32 29-168 [facility] AreaCreatine Jqrrdk7833-82-88 00:44:00* Test Item Value Reference Range Interpretation Comments Creatine Kinase (test code = 2157-6) 32 29-168 [facility] AreaFree Thyroxine Jgzzo2287-22-57 09:42:00* Test Item Value Reference Range Interpretation Comments Free Thyroxine Index (test code = 48937-2) 2.7760 1.4-3.8 [facility] AreaThyroxine (T4)2017-07-19 09:42:00* Test Item Value Reference Range Interpretation Comments Thyroxine (T4) (test code = 3026-2) 7.35 4.5-10.9 Our current method for Total T4 is not recommended for use as the only marker fo r evaluating patients for thyroid disorders.[facility] AreaTriiodothyronine (T3) Oyxewc1372-79-90 09:42:00* Test Item Value Reference Range Interpretation Comments Triiodothyronine (T3) Uptake (test code = 3050-2) 37.77 22.5 -37.0 H [facility] AreaThyroid Stimulating Hormone (TSH) 2017-07-19 09:42:00* Test Item Value Reference Range Interpretation Comments Thyroid Stimulating Hormone (TSH) (test code = 38426-7) 0.158 0.350-4.940 L [facility] AreaFree Thyroxine Umfke6085-02-05 09:42:00* Test Item Value Reference Range Interpretation Comments Free Thyroxine Index (test code = 89210-6) 2.7760 1.4-3.8 [facility] AreaThyroxine (T4)2017-07-19 09:42:00* Test Item Value Reference Range Interpretation Comments Thyroxine (T4) (test code = 3026-2) 7.35 4.5-10.9 Our current method for Total T4 is not recommended for use as the only marker fo r evaluating patients for thyroid disorders.[facility] AreaTriiodothyronine (T3) Nsqwyk5379-35-19 09:42:00* Test Item Value Reference Range Interpretation Comments Triiodothyronine (T3) Uptake (test code = 3050-2) 37.77 22.5 -37.0 H [facility] AreaThyroid Stimulating Hormone (TSH) 2017-07-19 09:42:00* Test Item Value Reference Range Interpretation Comments Thyroid Stimulating Hormone (TSH) (test code = 47166-6) 0.158 0.350-4.940 L [facility] AreaLactic Acid Obbgs6998-80-67 09:17:00* Test Item Value Reference Range Interpretation Comments Lactic Acid Level (test code = Lactic Acid Level) 8.8 4.5- 19.8 [facility] AreaProthrombin Fevj6113-54-38 19:34:00* Test Item Value Reference Range Interpretation Comments Prothrombin Time (test code = 5902-2) 13.0 11.9-14.5 [facility] AreaProthromb Time International Ratio 2017-07-18 19:34:00* Test Item Value Reference Range Interpretation Comments Prothromb Time International Ratio (test code = 6301-6) 1.06 Oral Anticoagulant Therapy INR Values:1. Low Intensity Therapy 1.5 - 2.02 . Moderate Intensity Therapy 2.0 - 3.03. High Intensity Therapy(1) 2.5 - 3. 54. High Intensity Therapy(2) 3.0 - 4.05. Panic Value INR > 5.0 [facility] AreaActivated Partial Thromboplast Time 2017-07-18 19:34:00* Test Item Value Reference Range Interpretation Comments Activated Partial Thromboplast Time (test code = 17305-8) 21.6 23.8-35.5 L [facility] AreaActivated Partial Thromboplast Time 2017-07-18 19:34:00* Test Item Value Reference Range Interpretation Comments Activated Partial Thromboplast Time (test code = 67747-0) 21.6 23.8-35.5 [facility] Centerodium Yzzgf1543-25-82 07:27:00* Test Item Value Reference Range Interpretation Comments Sodium Level (test code = 2951-2) 136 136-145 [facility] AreaPotassium Efvfd6953-08-70 07:27:00* Test Item Value Reference Range Interpretation Comments Potassium Level (test code = 2823-3) 3.6 3.5-5.1 [facility] AreaChloride Taido1417-98-05 07:27:00* Test Item Value Reference Range Interpretation Comments Chloride Level (test code = 2075-0) 99 98-107 [facility] AreaCarbon Dioxide Qiduq7653-57-32 07:27:00* Test Item Value Reference Range Interpretation Comments Carbon Dioxide Level (test code = 2028-9) 25 22-29 [facility] AreaAnion Hco2462-57-97 07:27:00* Test Item Value Reference Range Interpretation Comments Anion Gap (test code = 97948-6) 15.6 8-16 [facility] AreaBlood Urea Mxqotimq2477-27-97 07:27:00* Test Item Value Reference Range Interpretation Comments Blood Urea Nitrogen (test code = 3094-0) 60 7-26 H [facility] AreaCreatinine2018-04-26 07:27:00* Test Item Value Reference Range Interpretation Comments Creatinine (test code = 2160-0) 2.72 0.57-1.11 H [facility] AreaBUN/Creatinine Klmrw4542-94-57 07:27:00* Test Item Value Reference Range Interpretation Comments BUN/Creatinine Ratio (test code = 3097-3) 22 6-25 [facility] AreaEstimat Glomerular Filtration Rate 2017-07-16 07:27:00* Test Item Value Reference Range Interpretation Comments Estimat Glomerular Filtration Rate (test code = 24058-3) 18 >60 L Ranges were taken from the National Kidney Disease Education Program and the [facility] Foundation literature.Reference ranges:60 or greater: Upnydx76-90 ( for 3 consecutive months): Chronic kidney disease 15 or less: Kidney failureCHI Methodist Richardson Medical CenterGlucose Dfhtm9341-93-78 07:27:00* Test Item Value Reference Range Interpretation Comments Glucose Level (test code = QMW4651) 219 74-118 H [facility] AreaCalcium Cmcgl8991-19-68 07:27:00* Test Item Value Reference Range Interpretation Comments Calcium Level (test code = 20327-1) 9.3 8.4-10.2 [facility] AreaTotal Qykduxzxk2611-80-10 07:27:00* Test Item Value Reference Range Interpretation Comments Total Bilirubin (test code = 1975-2) 0.4 0.2-1.2 [facility] AreaAspartate Amino Transf (AST/SGOT) 2017-07-16 07:27:00* Test Item Value Reference Range Interpretation Comments Aspartate Amino Transf (AST/SGOT) (test code = Aspartate Amino Transf (AST/SGOT)) 10 5-34 [facility] AreaAlanine Aminotransferase (ALT/SGPT) 2017-07-16 07:27:00* Test Item Value Reference Range Interpretation Comments Alanine Aminotransferase (ALT/SGPT) (test code = 1742-6) 14 0-55 [facility] AreaTotal Qnedeeu8880-80-73 07:27:00* Test Item Value Reference Range Interpretation Comments Total Protein (test code = 2885-2) 6.6 6.5-8.1 [facility] AreaAlbumin2018-04-26 07:27:00* Test Item Value Reference Range Interpretation Comments Albumin (test code = 1751-7) 2.8 3.5-5.0 L [facility] AreaGlobulin2018-04-26 07:27:00* Test Item Value Reference Range Interpretation Comments Globulin (test code = 90217-1) 3.8 2.3-3.5 H [facility] AreaAlbumin/Globulin Izixi4454-76-91 07:27:00 * Test Item Value Reference Range Interpretation Comments Albumin/Globulin Ratio (test code = 1759-0) 0.7 0.8-2.0 L [facility] AreaAlkaline Bqpvdvgebhk1194-10-83 07:27:00* Test Item Value Reference Range Interpretation Comments Alkaline Phosphatase (test code = 6768-6) 71 40-150 [facility] AreaMagnesium Tthyn8561-79-69 07:10:00* Test Item Value Reference Range Interpretation Comments Magnesium Level (test code = 33060-0) 1.6 1.3-2.1 [facility] AreaWhite Blood Xcjfm7213-49-88 07:00:00* Test Item Value Reference Range Interpretation Comments White Blood Count (test code = 6690-2) 15.90 4.8-10.8 H [facility] AreaRed Blood Bzsrb2290-32-10 07:00:00* Test Item Value Reference Range Interpretation Comments Red Blood Count (test code = 789-8) 4.06 3.6-5.1 [facility] AreaHemoglobin2018-04-26 07:00:00* Test Item Value Reference Range Interpretation Comments Hemoglobin (test code = 17734-0) 10.9 12.0-16.0 L [facility] AreaHematocrit2018-04-26 07:00:00* Test Item Value Reference Range Interpretation Comments Hematocrit (test code = 4544-3) 32.8 34.2-44.1 L [facility] AreaMean Corpuscular Zxfutg6145-55-58 07:00:00* Test Item Value Reference Range Interpretation Comments Mean Corpuscular Volume (test code = 787-2) 80.8 81-99 L [facility] AreaMean Corpuscular Pjsmswejdn2034-83-79 07:00:00* Test Item Value Reference Range Interpretation Comments Mean Corpuscular Hemoglobin (test code = 785-6) 26.8 28-32 L [facility] AreaMean Corpuscular Hemoglobin Concent 2017-07-16 07:00:00* Test Item Value Reference Range Interpretation Comments Mean Corpuscular Hemoglobin Concent (test code = 786-4) 33.2 31-35 [facility] AreaRed Cell Distribution Qnowo3243-03-17 07:00:00* Test Item Value Reference Range Interpretation Comments Red Cell Distribution Width (test code = 44382-1) 14.2 11.7 -14.4 [facility] AreaPlatelet Jsjpx8968-74-76 07:00:00* Test Item Value Reference Range Interpretation Comments Platelet Count (test code = 777-3) 574 140-360 H [facility] AreaNeutrophils (%) (Auto)2017-07-16 07:00:00 * Test Item Value Reference Range Interpretation Comments Neutrophils (%) (Auto) (test code = 63225-9) 88.6 38.7-80.0 H [facility] AreaLymphocytes (%) (Auto)2017-07-16 07:00:00 * Test Item Value Reference Range Interpretation Comments Lymphocytes (%) (Auto) (test code = 736-9) 8.2 18.0-39.1 L [facility] AreaMonocytes (%) (Auto)2017-07-16 07:00:00* Test Item Value Reference Range Interpretation Comments Monocytes (%) (Auto) (test code = 5905-5) 2.5 4.4-11.3 L [facility] AreaEosinophils (%) (Auto)2017-07-16 07:00:00 * Test Item Value Reference Range Interpretation Comments Eosinophils (%) (Auto) (test code = 713-8) 0.0 0.0-6.0 [facility] AreaBasophils (%) (Auto)2017-07-16 07:00:00* Test Item Value Reference Range Interpretation Comments Basophils (%) (Auto) (test code = 706-2) 0.1 0.0-1.0 [facility] AreaIM GRANULOCYTES %2017-07-16 07:00:00* Test Item Value Reference Range Interpretation Comments IM GRANULOCYTES % (test code = IM GRANULOCYTES %) 0.6 0.0- 1.0 [facility] AreaNeutrophils # (Auto)2017-07-16 07:00:00* Test Item Value Reference Range Interpretation Comments Neutrophils # (Auto) (test code = 751-8) 14.1 2.1-6.9 H [facility] AreaLymphocytes # (Auto)2017-07-16 07:00:00* Test Item Value Reference Range Interpretation Comments Lymphocytes # (Auto) (test code = 70236-3) 1.3 1.0-3.2 [facility] AreaMonocytes # (Auto)2017-07-16 07:00:00* Test Item Value Reference Range Interpretation Comments Monocytes # (Auto) (test code = 742-7) 0.4 0.2-0.8 [facility] AreaEosinophils # (Auto)2017-07-16 07:00:00* Test Item Value Reference Range Interpretation Comments Eosinophils # (Auto) (test code = 711-2) 0.0 0.0-0.4 [facility] AreaBasophils # (Auto)2017-07-16 07:00:00* Test Item Value Reference Range Interpretation Comments Basophils # (Auto) (test code = 704-7) 0.0 0.0-0.1 [facility] AreaAbsolute Immature Granulocyte (auto 2017-07-16 07:00:00* Test Item Value Reference Range Interpretation Comments Absolute Immature Granulocyte (auto (ortega t code = Absolute Immature Granulocyte (auto) 0.09 0-0.1 [facility] AreaB-Type Natriuretic Piftqli0367-20-30 10:31:00* Test Item Value Reference Range Interpretation Comments B-Type Natriuretic Peptide (test code = 65257-0) 91.0 0-100 [facility] AreaBlood Gbgmhsm1080-01-92 16:57:00* Test Item Value Reference Range Interpretation Comments Blood Culture (test code = 96461798) NO GROWTH AFTER 5 DAYS, FINAL REPORT [facility] AreaCreatine Kinase DY2831-71-89 08:00:00* Test Item Value Reference Range Interpretation Comments Creatine Kinase MB (test code = 63558-7) 0.30 0-5.0 [facility] AreaTroponin E8967-74-58 08:00:00* Test Item Value Reference Range Interpretation Comments Troponin I (test code = JAM0272) 0.011 0-0.300 [facility] AreaCreatine Lveaml6764-81-28 07:31:00* Test Item Value Reference Range Interpretation Comments Creatine Kinase (test code = 2157-6) 29 29-168 [facility] Mymhgvl2238-29-33 21:32:00* Test Item Value Reference Range Interpretation Comments Bedside Glucose (test code = 40642-8) 82 70-120 Meter ID: [id number] [facility] Glucose 2016-12-23 21:32:00* Test Item Value Reference Range Interpretation Comments Bedside Glucose (test code = 73796-2) 82 70-120 Meter ID: [id number] [facility] Hospital Glucose 2016-12-23 21:32:00* Test Item Value Reference Range Interpretation Comments Bedside Glucose (test code = 72971-3) 82 70-120 Meter ID: [id number] Christi Medical Center Bay AreaCreatine Kinase MB 2016-12-22 15:42:00* Test Item Value Reference Range Interpretation Comments Creatine Kinase MB (test code = 72999-7) 0.50 0.00-5.00 [facility] Y4222-19-68 15:42:00* Test Item Value Reference Range Interpretation Comments Troponin I (test code = ASA5026) 0.010 0-0.300 [facility] Centerodium Ideyp0701-20-00 15:34:00* Test Item Value Reference Range Interpretation Comments Sodium Level (test code = 2951-2) 138 136-145 [facility] AreaPotassium Lulpm5648-10-07 15:34:00* Test Item Value Reference Range Interpretation Comments Potassium Level (test code = 2823-3) 3.9 3.5-5.1 [facility] AreaChloride Yerrh1457-75-86 15:34:00* Test Item Value Reference Range Interpretation Comments Chloride Level (test code = 2075-0) 104 98-107 [facility] AreaCarbon Dioxide Rsmyh0720-50-27 15:34:00* Test Item Value Reference Range Interpretation Comments Carbon Dioxide Level (test code = 2028-9) 25 22-29 [facility] AreaAnion Jbd4078-55-39 15:34:00* Test Item Value Reference Range Interpretation Comments Anion Gap (test code = 11767-1) 12.9 8-16 [facility] AreaBlood Urea Ylltmfin9511-85-07 15:34:00* Test Item Value Reference Range Interpretation Comments Blood Urea Nitrogen (test code = 3094-0) 34 7-26 H [facility] AreaCreatinine2017-10-02 15:34:00* Test Item Value Reference Range Interpretation Comments Creatinine (test code = 2160-0) 2.03 0.57-1.11 H [facility] AreaBUN/Creatinine Vwsxl5702-79-84 15:34:00* Test Item Value Reference Range Interpretation Comments BUN/Creatinine Ratio (test code = 3097-3) 17 6-25 [facility] AreaEstimat Glomerular Filtration Rate 2016-12-22 15:34:00* Test Item Value Reference Range Interpretation Comments Estimat Glomerular Filtration Rate (test code = 88408-9) 25 >60 L Ranges were taken from the National Kidney Disease Education Program and the [facility] Kidney Foundation literature.Reference ranges:60 or greater: Epbpvo62-09 ( for 3 consecutive months): Chronic kidney disease 15 or less: Kidney failureCorpus Christi Medical Center Bay AreaGlucose Hspae3445-09-51 15:34:00* Test Item Value Reference Range Interpretation Comments Glucose Level (test code = PIP0932) 116 74-118 [facility] AreaCalcium Hpost3314-02-72 15:34:00* Test Item Value Reference Range Interpretation Comments Calcium Level (test code = 95300-1) 9.3 8.4-10.2 [facility] AreaTotal Seitrgexa5160-12-84 15:34:00* Test Item Value Reference Range Interpretation Comments Total Bilirubin (test code = 1975-2) 0.3 0.2-1.2 [facility] AreaAspartate Amino Transf (AST/SGOT) 2016-12-22 15:34:00* Test Item Value Reference Range Interpretation Comments Aspartate Amino Transf (AST/SGOT) (test code = Aspartate Amino Transf (AST/SGOT)) 19 5-34 [facility] AreaAlanine Aminotransferase (ALT/SGPT) 2016-12-22 15:34:00* Test Item Value Reference Range Interpretation Comments Alanine Aminotransferase (ALT/SGPT) (test code = 1742-6) 21 0-55 [facility] AreaTotal Rrtafcq6006-72-25 15:34:00* Test Item Value Reference Range Interpretation Comments Total Protein (test code = 2885-2) 7.4 6.5-8.1 [facility] AreaAlbumin2017-10-02 15:34:00* Test Item Value Reference Range Interpretation Comments Albumin (test code = 1751-7) 3.1 3.5-5.0 L [facility] AreaGlobulin2017-10-02 15:34:00* Test Item Value Reference Range Interpretation Comments Globulin (test code = 29549-8) 4.3 2.3-3.5 H [facility] AreaAlbumin/Globulin Unbkr2695-82-13 15:34:00 * Test Item Value Reference Range Interpretation Comments Albumin/Globulin Ratio (test code = 1759-0) 0.7 0.8-2.0 L [facility] AreaAlkaline Dslojvwlcab7254-19-46 15:34:00* Test Item Value Reference Range Interpretation Comments Alkaline Phosphatase (test code = 6768-6) 101 40-150 [facility] AreaCreatine Ivizny9608-03-21 15:34:00* Test Item Value Reference Range Interpretation Comments Creatine Kinase (test code = 2157-6) 33 29-168 [facility] AreaProthrombin Sitn8340-40-48 15:23:00* Test Item Value Reference Range Interpretation Comments Prothrombin Time (test code = 5902-2) 12.7 11.9-14.5 [facility] AreaProthromb Time International Ratio 2016-12-22 15:23:00* Test Item Value Reference Range Interpretation Comments Prothromb Time International Ratio (test code = 6301-6) 0.91 Oral Anticoagulant Therapy INR Values:1. Low Intensity Therapy 1.5 - 2.02 . Moderate Intensity Therapy 2.0 - 3.03. High Intensity Therapy(1) 2.5 - 3. 54. High Intensity Therapy(2) 3.0 - 4.05. Panic Value INR > 5.0 [facility] AreaActivated Partial Thromboplast Time 2016-12-22 15:23:00* Test Item Value Reference Range Interpretation Comments Activated Partial Thromboplast Time (test code = 67702-8) 45.2 23.8-35.5 H [facility] AreaProthrombin Imxv0198-62-22 15:23:00* Test Item Value Reference Range Interpretation Comments Prothrombin Time (test code = 5902-2) 12.7 11.9-14.5 [facility] AreaProthromb Time International Ratio 2016-12-22 15:23:00* Test Item Value Reference Range Interpretation Comments Prothromb Time International Ratio (test code = 6301-6) 0.91 Oral Anticoagulant Therapy INR Values:1. Low Intensity Therapy 1.5 - 2.02 . Moderate Intensity Therapy 2.0 - 3.03. High Intensity Therapy(1) 2.5 - 3. 54. High Intensity Therapy(2) 3.0 - 4.05. Panic Value INR > 5.0 [facility] AreaActivated Partial Thromboplast Time 2016-12-22 15:23:00* Test Item Value Reference Range Interpretation Comments Activated Partial Thromboplast Time (test code = 59526-4) 45.2 23.8-35.5 H [facility] AreaUrine VCW3307-22-78 15:21:00* Test Item Value Reference Range Interpretation Comments Urine WBC (test code = 5821-4) 6-10 0-5 H [facility] AreaUrine YHC1548-66-68 15:21:00* Test Item Value Reference Range Interpretation Comments Urine RBC (test code = 63725-2) 6-10 0-5 H [facility] AreaUrine Ndeuyegw5905-77-43 15:21:00* Test Item Value Reference Range Interpretation Comments Urine Bacteria (test code = 40116-7) MODERATE NONE [facility] Epithelial Dmbab0994-92-10 15:21:00 * Test Item Value Reference Range Interpretation Comments Urine Epithelial Cells (test code = 94676-0) MANY NONE [facility] Transitional Epithelial Cells 2016-12-22 15:21:00* Test Item Value Reference Range Interpretation Comments Urine Transitional Epithelial Cells (test code = 8249-5) FEW NONE [facility] Renal Epithelial Njgvz6066-49-07 15:21:00* Test Item Value Reference Range Interpretation Comments Urine Renal Epithelial Cells (test code = 41360-0) FEW NON E [facility] Hyaline Rlwhy5382-50-74 15:21:00* Test Item Value Reference Range Interpretation Comments Urine Hyaline Casts (test code = 08238-2) 0-1 0-1 [facility] AreaUrine BXO1204-09-14 15:21:00* Test Item Value Reference Range Interpretation Comments Urine WBC (test code = 5821-4) 6-10 0-5 [facility] CJQ2343-61-71 15:21:00* Test Item Value Reference Range Interpretation Comments Urine RBC (test code = 73627-0) 6-10 0-5 [facility] Fajqjsal0375-21-10 15:21:00* Test Item Value Reference Range Interpretation Comments Urine Bacteria (test code = 98850-5) MODERATE NONE [facility] Ep[facility]helial Htfiq3034-12-01 15:21:00 * Test Item Value Reference Range Interpretation Comments Urine Epithelial Cells (test code = 58708-2) MANY NONE [facility] Transitional Epithelial Cells 2016-12-22 15:21:00* Test Item Value Reference Range Interpretation Comments Urine Transitional Epithelial Cells (test code = 8249-5) FEW NONE [facility] AreaUrine Renal Epithelial Ysksz6105-51-99 15:21:00* Test Item Value Reference Range Interpretation Comments Urine Renal Epithelial Cells (test code = 38541-2) FEW NON E H [facility] AreaUrine Hyaline Mfkyn9853-04-92 15:21:00* Test Item Value Reference Range Interpretation Comments Urine Hyaline Casts (test code = 83678-4) 0-1 0-1 [facility] AreaUrine VNR8972-74-76 15:21:00* Test Item Value Reference Range Interpretation Comments Urine WBC (test code = 5821-4) 6-10 0-5 H [facility] AreaUrine OBX9138-56-47 15:21:00* Test Item Value Reference Range Interpretation Comments Urine RBC (test code = 78487-6) 6-10 0-5 H [facility] AreaUrine Mlpmdnfv9632-14-19 15:21:00* Test Item Value Reference Range Interpretation Comments Urine Bacteria (test code = 82405-5) MODERATE NONE [facility] AreaUrine Epithelial Eityj1084-65-57 15:21:00 * Test Item Value Reference Range Interpretation Comments Urine Epithelial Cells (test code = 50051-3) MANY NONE [facility] AreaUrine Transitional Epithelial Cells 2016-12-22 15:21:00* Test Item Value Reference Range Interpretation Comments Urine Transitional Epithelial Cells (test code = 8249-5) FEW NONE [facility] AreaUrine Renal Epithelial Vxobf9403-12-54 15:21:00* Test Item Value Reference Range Interpretation Comments Urine Renal Epithelial Cells (test code = 38376-4) FEW NON E H [facility] AreaUrine Hyaline Knklf0330-41-76 15:21:00* Test Item Value Reference Range Interpretation Comments Urine Hyaline Casts (test code = 11869-5) 0-1 0-1 [facility] [facility] Blood Atzmx4226-32-09 15:14:00* Test Item Value Reference Range Interpretation Comments White Blood Count (test code = 6690-2) 13.82 4.8-10.8 [facility] Blood Whrqj0441-47-52 15:14:00* Test Item Value Reference Range Interpretation Comments Red Blood Count (test code = 789-8) 4.16 3.6-5.1 [facility] AreaHemoglobin2017-10-02 15:14:00* Test Item Value Reference Range Interpretation Comments Hemoglobin (test code = 65223-0) 11.0 12.0-16.0 L [facility] AreaHematocrit2017-10-02 15:14:00* Test Item Value Reference Range Interpretation Comments Hematocrit (test code = 4544-3) 34.8 34.2-44.1 [facility] AreaMean Corpuscular Iygtem2515-68-70 15:14:00* Test Item Value Reference Range Interpretation Comments Mean Corpuscular Volume (test code = 787-2) 83.7 81-99 [facility] Corpuscular Zlskfzauob7410-96-38 15:14:00* Test Item Value Reference Range Interpretation Comments Mean Corpuscular Hemoglobin (test code = 785-6) 26.4 28-32 L [facility]Mean Corpuscular Hemoglobin Concent 2016-12-22 15:14:00* Test Item Value Reference Range Interpretation Comments Mean Corpuscular Hemoglobin Concent (test code = 786-4) 31.6 31-35 [facility] AreaRed Cell Distribution Gmmdu3726-88-21 15:14:00* Test Item Value Reference Range Interpretation Comments Red Cell Distribution Width (test code = 85303-5) 16.4 11.7 -14.4 [facility] AreaPlatelet Lfsvr3148-69-19 15:14:00* Test Item Value Reference Range Interpretation Comments Platelet Count (test code = 777-3) 497 140-360 [facility] AreaNeutrophils (%) (Auto)2016-12-22 15:14:00 * Test Item Value Reference Range Interpretation Comments Neutrophils (%) (Auto) (test code = 32072-2) 59.3 38.7-80.0 [facility] AreaLymphocytes (%) (Auto)2016-12-22 15:14:00 * Test Item Value Reference Range Interpretation Comments Lymphocytes (%) (Auto) (test code = 736-9) 30.1 18.0-39.1 [facility] AreaMonocytes (%) (Auto)2016-12-22 15:14:00* Test Item Value Reference Range Interpretation Comments Monocytes (%) (Auto) (test code = 5905-5) 7.8 4.4-11.3 [facility] AreaEosinophils (%) (Auto)2016-12-22 15:14:00 * Test Item Value Reference Range Interpretation Comments Eosinophils (%) (Auto) (test code = 713-8) 1.7 0.0-6.0 [facility] AreaBasophils (%) (Auto)2016-12-22 15:14:00* Test Item Value Reference Range Interpretation Comments Basophils (%) (Auto) (test code = 706-2) 0.7 0.0-1.0 [facility] AreaIM GRANULOCYTES %2016-12-22 15:14:00* Test Item Value Reference Range Interpretation Comments IM GRANULOCYTES % (test code = IM GRANULOCYTES %) 0.4 0.0- 1.0 [facility] AreaNeutrophils # (Auto)2016-12-22 15:14:00* Test Item Value Reference Range Interpretation Comments Neutrophils # (Auto) (test code = 751-8) 8.2 2.1-6.9 [facility] AreaLymphocytes # (Auto)2016-12-22 15:14:00* Test Item Value Reference Range Interpretation Comments Lymphocytes # (Auto) (test code = 88970-7) 4.2 1.0-3.2 [facility] AreaMonocytes # (Auto)2016-12-22 15:14:00* Test Item Value Reference Range Interpretation Comments Monocytes # (Auto) (test code = 742-7) 1.1 0.2-0.8 [facility] AreaEosinophils # (Auto)2016-12-22 15:14:00* Test Item Value Reference Range Interpretation Comments Eosinophils # (Auto) (test code = 711-2) 0.2 0.0-0.4 [facility] AreaBasophils # (Auto)2016-12-22 15:14:00* Test Item Value Reference Range Interpretation Comments Basophils # (Auto) (test code = 704-7) 0.1 0.0-0.1 [facility] AreaAbsolute Immature Granulocyte (auto 2016-12-22 15:14:00* Test Item Value Reference Range Interpretation Comments Absolute Immature Granulocyte (auto (ortega t code = Absolute Immature Granulocyte (auto) 0.05 0-0.1 [facility] AreaUrine Qrdop3036-15-73 15:01:00* Test Item Value Reference Range Interpretation Comments Urine Color (test code = 5778-6) YELLOW YELLOW [facility] AreaUrine Wqitqxp2334-89-72 15:01:00* Test Item Value Reference Range Interpretation Comments Urine Clarity (test code = 49042-8) HAZY CLEAR [facility] AreaUrine Specific Nvveumo7611-13-89 15:01:00 * Test Item Value Reference Range Interpretation Comments Urine Specific [place] (test code = 5811-5) 1.015 1.010-1.02 5 [facility] AreaUrine sO0612-47-57 15:01:00* Test Item Value Reference Range Interpretation Comments Urine pH (test code = 17324-7) 5 5-7 [facility] Leukocyte Wbkkfjah1380-66-68 15:01:00* Test Item Value Reference Range Interpretation Comments Urine Leukocyte Esterase (test code = 5799-2) TRACE NEGATIVE H [facility] AreaUrine Zujeyzp4154-91-64 15:01:00* Test Item Value Reference Range Interpretation Comments Urine Nitrite (test code = 03274-8) NEGATIVE NEGATIVE [facility] Yiaxhkv4119-66-92 15:01:00* Test Item Value Reference Range Interpretation Comments Urine Protein (test code = 5804-0) 3+ NEGATIVE [facility]Urine Glucose (UA)2016-12-22 15:01:00* Test Item Value Reference Range Interpretation Comments Urine Glucose (UA) (test code = 2349-9) NEGATIVE NEGATIVE [facility] Ywrutts0761-44-47 15:01:00* Test Item Value Reference Range Interpretation Comments Urine Ketones (test code = 34574-7) NEGATIVE NEGATIVE [facility] Ekcubwqijfue5642-72-74 15:01:00* Test Item Value Reference Range Interpretation Comments Urine Urobilinogen (test code = 45611-4) 0.2 0.2-1 [facility] Gktgtgism8290-85-53 15:01:00* Test Item Value Reference Range Interpretation Comments Urine Bilirubin (test code = 1978-6) NEGATIVE NEGATIVE [facility] Qxiun0813-89-14 15:01:00* Test Item Value Reference Range Interpretation Comments Urine Blood (test code = 41606-6) TRACE NEGATIVE H [facility] Zdfxc0569-87-00 15:01:00* Test Item Value Reference Range Interpretation Comments Urine Color (test code = 5778-6) YELLOW YELLOW [facility] Myptuqg5526-39-72 15:01:00* Test Item Value Reference Range Interpretation Comments Urine Clarity (test code = 96158-1) HAZY CLEAR [facility] AreaU[facility] Specific Jppxmoh3975-44-09 15:01:00 * Test Item Value Reference Range Interpretation Comments Urine Specific [place] (test code = 5811-5) 1.015 1.010-1.02 5 [facility] AreaU[facility] fB5739-17-22 15:01:00* Test Item Value Reference Range Interpretation Comments Urine pH (test code = 31610-2) 5 5-7 [facility] Leukocyte Burqxjdy8921-82-57 15:01:00* Test Item Value Reference Range Interpretation Comments Urine Leukocyte Esterase (test code = 5799-2) TRACE NEGATIVE H [facility] Kfhemvr1658-58-33 15:01:00* Test Item Value Reference Range Interpretation Comments Urine Nitrite (test code = 39724-7) NEGATIVE NEGATIVE [facility] Duafdik6477-94-51 15:01:00* Test Item Value Reference Range Interpretation Comments Urine Protein (test code = 5804-0) 3+ NEGATIVE H [facility] Glucose (UA)2016-12-22 15:01:00* Test Item Value Reference Range Interpretation Comments Urine Glucose (UA) (test code = 2349-9) NEGATIVE NEGATIVE [facility] Eukesfe9073-52-10 15:01:00* Test Item Value Reference Range Interpretation Comments Urine Ketones (test code = 06918-0) NEGATIVE NEGATIVE [facility] Vyactfdmyphy0347-38-31 15:01:00* Test Item Value Reference Range Interpretation Comments Urine Urobilinogen (test code = 86878-9) 0.2 0.2-1 [facility] Magbqowcj1673-75-62 15:01:00* Test Item Value Reference Range Interpretation Comments Urine Bilirubin (test code = 1978-6) NEGATIVE NEGATIVE [facility] Bqqyv9916-40-90 15:01:00* Test Item Value Reference Range Interpretation Comments Urine Blood (test code = 02140-6) TRACE NEGATIVE H [facility] Wlczo3714-47-36 15:01:00* Test Item Value Reference Range Interpretation Comments Urine Color (test code = 5778-6) YELLOW YELLOW [facility] Avgcjuq9338-99-78 15:01:00* Test Item Value Reference Range Interpretation Comments Urine Clarity (test code = 78041-1) HAZY CLEAR [facility] Specific Ixexogl7270-32-24 15:01:00 * Test Item Value Reference Range Interpretation Comments Urine Specific [place] (test code = 5811-5) 1.015 1.010-1.02 5 [facility] mF6032-67-61 15:01:00* Test Item Value Reference Range Interpretation Comments Urine pH (test code = 35989-2) 5 5-7 [facility] Leukocyte Rxroddkd4256-84-93 15:01:00* Test Item Value Reference Range Interpretation Comments Urine Leukocyte Esterase (test code = 5799-2) TRACE NEGATIVE H [facility] Yduzxkt4893-84-91 15:01:00* Test Item Value Reference Range Interpretation Comments Urine Nitrite (test code = 93972-9) NEGATIVE NEGATIVE [facility] Tjbnzfl7834-08-42 15:01:00* Test Item Value Reference Range Interpretation Comments Urine Protein (test code = 5804-0) 3+ NEGATIVE [facility]Urine Glucose (UA)2016-12-22 15:01:00* Test Item Value Reference Range Interpretation Comments Urine Glucose (UA) (test code = 2349-9) NEGATIVE NEGATIVE [facility] Wbaespl6415-79-94 15:01:00* Test Item Value Reference Range Interpretation Comments Urine Ketones (test code = 09818-4) NEGATIVE NEGATIVE [facility] Mcudatiaxglc7079-25-90 15:01:00* Test Item Value Reference Range Interpretation Comments Urine Urobilinogen (test code = 69924-4) 0.2 0.2-1 [facility] Wdbiunkqc8463-42-00 15:01:00* Test Item Value Reference Range Interpretation Comments Urine Bilirubin (test code = 1978-6) NEGATIVE NEGATIVE [facility] Wbqqx1493-59-55 15:01:00* Test Item Value Reference Range Interpretation Comments Urine Blood (test code = 57745-6) TRACE NEGATIVE H [facility]CT [facility]OM[facility] [address] [address] Patient Name: GABBIE TOBIN MR #: [id number] : 1955 Age/Sex: 61/F Req #: [id number] Adm Physician: KYLEE ACOSTA MD Ordered by: USMAN MARIE, [place] MAR[place] Report #: [id number] Location: MED/SURG3 Room/Bed: [facility] Procedure: [id number] CT/C T ABDOMEN WO Exam Date: 07/21/17 Exam Time: 1200 REPORT STATUS: Signed PROCEDURE: CT ABDOMEN WITHOUT CONTRAST COMPARIS ON: [facility], US, US RETROPERITONEAL ( KIDNEY )., 12/11/2015, 11:34. [facility], CT, CT ABDOMEN WO, 05/06/2015, 14:42. [...] SOFIA MD 1227 COPY TO: PAPO MARY RENAL RETROPERITONEAL COMP [place] [address] Patient Name: GABBIE TOBIN MR #: [id number] : 1955 [facility] 61[id number] Req #: [id number] [facility] Physician: KYLEE ACOSTA MD Ordered by: PINA RUCKER MD Report #: [id number] Location: MED/SURG3 Room/Bed: [facility] Procedure: [id number] US/U S RENAL RETROPERITONEAL COMP Exam Date: Exam Time: REPORT STATUS: Signed PROCEDURE: US RETROPERITONEAL ( KIDNEY ). COMPARISON: Patients [facility], US, US RETROPERITONEAL ( KIDNEY )., 01/15/2016, 17:52. [...] 1.5 x 2.0 cm. There is a simpl e cyst in the lower pole measuring 1.7 x 1.2 x 1.2 cm and previously measurin g 0.9 x0. 9 x 1.0 cm. CONCLUSION: [...] Dictated By: DANIE CASILLAS MD, MD 1401 COPY TO: PINA RUCKER CHEST SINGLE (PORTABLE) [place] [address] Patient Name: GABBIE TOBIN MR #: [id number] : 1955 Age/Sex: 61/F Req #: [id number] Adm Physician: Ordered by: IRIS MOREL MD Report #: [id number] Location: ER Room/Bed: Procedure: [id number] DX/CHEST SINGLE (PORTABLE) Exam Date: 07/18/17 Exam [...] 5:16 PM Dictated By: DEMETRIO TAYLOR MD Electronica lly Signed By: DEMETRIO TAYLOR MD on 07/18/171715 Transcribed By: ALEXIA on 07/18 COPY TO: IRIS MOREL MD CT ABDOMEN/PELVIS WO [facility] [address] [address] Patient Name: GABBIE TOBIN MR #: [id number] : Age/Sex: 61/F Req #: [id number] Adm Physician: KYLEE PONCE MD Ordered by: IRIS MOREL MD Report #: [id number] [facility]: [place] [address] Procedure: [id number] CT/CT ABDOMEN/PELVIS WO Exam Date: Exam Time: [...] is below the limits set by the [facility] Protocol Committee (RPC). FINDINGS: LINES: None. Lower [...] 07/18/171838 COPY TO: IRIS MOREL MD CHEST SINGLE (PORTABLE) [place] [address] Patient Name: GABBIE TOBIN MR #: [id number] : 1955 Age/Sex: 61/F Req #: [id number] Adm Physician: KYLEE ACOSTA MD Ordered by: CHU MCALLISTER MD Report #: [id number] Location: MED/SURG2 [facility] Procedure: [id number] DX/C HEST SINGLE (PORTABLE) Exam Date: 07/15/17 [...] TO: CHU MCALLISTER MD CHEST SINGLE (PORTABLE) [place] [address] Patient Name: GABBIE TOBIN MR #: [id number] : Age/Sex: 61/F Req #: [id number] Adm Physician: KYLEE PONCE MD Ordered by: PINA RUCKER MD Report #: [id number] Location : MED/SURG [facility] Procedure: [id number] DX/C HEST SINGLE (PORTABLE) Exam Date: 07/11/17 [...] :21 AM Dictated By: JERONIMO POWELL MD 112 COPY TO: LADONNA RUCKER MD VQ LUNG SCAN VENT PERFUSION [place] [address] Patient Name: GABBIE TOBIN MR #: [id number] : 1955 Age/Sex: 61/F Req #: [id number] Adm Physician: KYLEE ACOSTA MD Ordered by: KYLEE ACOSTA MD Report #: [id number] Location: MED/SURG2 [facility] Procedure: [id number] NM/VQ LUNG SCAN VENT PERFUSION Exam Date: Exam Time: REPORT STATUS: Signed EXAM: VQ LUNG SCAN VENT PERFUSION DATE: 06/21 12:00 AM INDICATION: S SOB COMPARISON: 18 FINDINGS: Ve ntilation images of the lungs [...] TO: KYLEE ACOSTA MD MRI BRAIN WO [place] [address] Patient Name: GABBIE TOBIN MR #: [id number] : 1955 Age/Sex: 61/F Req #: [id number] Adm Physician: KYLEE ACOSTA MD Ordered by: KYLEE ACOSTA MD Report #: [id number] Location: MED/SURG Room/Bed: [facility] Procedure: [id number] MRI/M RI BRAIN WO Exam Date: Exam [...] on 12/23/2016 3:40 PM Dictated By: CAN Ojeda MD 5410 Transcri bed By: ALEXIA on 12/23/16 1540 COPY TO: KYLEE ACOSTA MD CT BRAIN WO [place] [address] Patient Name: GABBIE TOBIN MR #: [id number] : 1955 Age/Sex: 61/F Req #: [id number] [facility] Physician: Ordered by: CAYETANO ORDONEZ MD Report #: [id number] Location: ER Room/Bed: Procedure: [id number] CT/CT BRAIN WO Exam Date: 05/09 Exam [...] 12/22/2016 3:16 PM Dictated By: AUDREY Craven 1516 Trans cribed By: ALEXIA on 12/22/16 9472 COPY TO: CAYETANO ORDONEZ MD
[2020-02-18 18:09] LABS: ALBUMIN 3.2 g/dL (3.5-5.0); ALBUMIN/GLOBULIN RATIO 0.7 (0.8-2.0); ANION GAP 19.7 mmol/L (8-16); CALCIUM 9.3 mg/dL (8.4-10.2); CREATININE, SERUM 4.99 mg/dL (0.57-1.11); MAGNESIUM 1.9 MG/DL (1.3-2.1); POTASSIUM 3.7 mmol/L (3.5-5.1)
--- OUTSIDE RECORDS SUMMARY | 2020-02-18 18:25 | XMS REPORT | Continuity of Care Document ---
Author Author [facility] t Organization [facility] Address [address] [place] [address] [address] [place] [address] Phone Unavailable Care Team Providers Care Loan Documents Closer Name Role Phone MD KYLEE ACOSTA MD PCP Blake Braswell MD Attphys [phone] KYLEE ACOSTA Attphys Unavailable HAMPEL, AN Attphys Unavailable DALIA BRASWELL Attphys Unavailable SCHIESSER, [place] PRISCILLA Attphys Unavailable MANEEVESE, V RONY Attphys Unavailable KYLEE ACOSTA Admphys Unavailable Payers Payer Name Policy Type Policy Number Effective Date Expiration Date S [facility] [id number] I [facility] [id number] 2017 00:00:00 [facility] Problems Condition Name Condition Details Condition Category Status Onset Date Resolution Date Last Treatment Date Treating Clinician Comments Source Multiple gallstones Problem Active 2015-05-05 00:00:00 [facility] Renal colic on right side Renal colic on right side Problem Ac tive 2014-08-25 00:00:00 [facility] Congestive heart failure CHF (congestive heart failure) Problem Active [facility] Cerebrovascular accident (CVA) CVA (cerebrovascular accident) Problem Active [facility] Chest pain Chest pain Problem Active [facility] Chronic obstructive pulmonary disease COPD (chronic ob structive pulmonary disease) Problem Active [facility] Weakness Weakness Problem Active [facility] Urinary tract infection UTI (urinary tract infection) Problem Active [facility] Atrial fibrillation with rapid ventricular response At rial fibrillation with RVR Problem Active [facility] Hypoxia Hypoxia Problem Active [facility] Respiratory distress Respiratory distress Problem Active [facility] 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 Problem Active [facility] Dialysis catheter clot or failure Problem Active [facility] Allergies, Adverse Reactions, Alerts Allergy Name Allergy Type Status Severity Reaction(s) Onset Date Inacti ve Date Treating Clinician Comments Source Penicillin Allergy to substance Active 2020-01-09 00:00:00 [facility] Sulfa (Sulfonamide Antibiotics) Allergy to substance Active 2020-01-09 00:00:00 [facility] Morphine Allergy to substance Active 2020-01-09 00:00:00 [facility] Codeine Allergy to substance Active 2020-01-09 00:00:00 [facility] Methocarbamol Allergy to substance Active 2020-01-09 00:00: 00 [facility] Albuterol Allergy to substance Active 2020-01-09 00:00:00 [facility] Lactose Propensity to adverse reactions Active Severe 00:00:00 [facility] Cephalexin Allergy to substance Active 2020-01-09 00:00:00 [facility] Tetracycline Allergy to substance Active 2020-01-09 00:00:0 0 [facility] Erythromycin base Allergy to substance Active 2020-01-09 00 :00:00 [facility] Imipenem Allergy to substance Active RASH 2020-01-09 00:00:00 [facility] Amoxicillin Allergy to substance Active 2020-01-09 00:00:00 [facility] Gabapentin Allergy to substance Active 2020-01-09 00:00:00 [facility] Cilastatin Allergy to substance Active RASH 2020-01-09 00:00:00 [facility] Meperidine Allergy to substance Active 2020-01-09 00:00:00 [facility] Atorvastatin Allergy to substance Active Moderate itching and m uscle cramps 2020-01-09 00:00:00 [facility] Amoxicillin-Pot Clavulanate Propensity to adverse reactions Active 2019-09-21 00:00:00 [facility] Codeine Propensity to adverse reactions Active 2019-09-21 0 0:00:00 [facility] Meperidine Propensity to adverse reactions Active 1 00:00:00 [facility] Cephalexin Propensity to adverse reactions Active 1 00:00:00 [facility] Penicillins Propensity to adverse reactions Active 2019 00:00:00 [facility] Sulfa (Sulfonamide Antibiotics) Propensity to adverse reactions Activ e 2019-09-21 00:00:00 [facility] Sulfa (Sulfonamide Antibiotics) DA Active 2018-12-20 00 :00:00 [facility] gabapentin DA Active 2018-12-20 00:00:00 [facility] Penicillins DA Active SV 2018-03-31 00:00:00 [facility] Nrqiyey-Ikb-Wxf Reductase Inhibitor DA Active 9 00:00:00 [facility] morphine DA Active SV 2018-03-31 00:00:00 [facility] codeine DA Active SV 2018-03-31 00:00:00 [facility] methocarbamol DA Active SV 2018-03-31 00:00:00 [facility] cephalexin DA Active SV 2018-03-31 00:00:00 [facility] tetracycline DA Active SV 2018-03-31 00:00:00 [facility] erythromycin base DA Active SV 2018-03-31 00:00:00 [facility] clavulanic acid DA Active SV 2018-03-31 00:00:00 [facility] imipenem DA Active SV 2018-03-31 00:00:00 [facility] adhesive tape DA Active SV 2018-03-31 00:00:00 [facility] amoxicillin DA Active SV 2018-03-31 00:00:00 [facility] cilastatin DA Active SV 2018-03-31 00:00:00 [facility] meperidine DA Active SV 2018-03-31 00:00:00 [facility] Penicillins DA Active SV 2016-03-07 00:00:00 [facility] Wbopyjy-Xzr-Fqf Reductase Inhibitor DA Active SV 2016-02-21 00:00:00 [facility] morphine DA Active SV 2016-03-07 00:00:00 [facility] codeine DA Active SV 2016-03-07 00:00:00 [facility] methocarbamol DA Active SV 2016-03-07 00:00:00 [facility] cephalexin DA Active SV 2016-03-07 00:00:00 [facility] tetracycline DA Active SV 2016-03-07 00:00:00 [facility] erythromycin base DA Active SV 2016-03-07 00:00:00 [facility] clavulanic acid DA Active SV 2016-03-07 00:00:00 [facility] imipenem DA Active SV 2016-03-07 00:00:00 [facility] adhesive tape DA Active SV 2016-03-07 00:00:00 [facility] amoxicillin DA Active SV 2016-03-07 00:00:00 [facility] cilastatin DA Active SV 2016-03-07 00:00:00 [facility] meperidine DA Active SV 2016-03-07 00:00:00 [facility] TAPE Allergy to substance Active Mild RASH 2009-04-17 00:00:00 [facility] Social History Social Habit Start Date Stop Date Quantity Comments Source History SDOH Alcohol Std Drinks [facility] History SDOH Alcohol Binge [facility] Sex Assigned At [facility] Tobacco use and exposure 2019-09-21 00:00:00 2019-09-21 00:00:00 Brian sutherland [facility] Alcohol intake 2019-09-21 00:00:00 2019-09-21 00:00:00 Current non-drinker of alcohol (finding) [facility] Joshua pineda History SDOH Alcohol Frequency 2019-09-21 00:00:00 2019-09-21 00:00:0 0 1 [facility] Smoking Status Start Date Stop Date Source Never smoker [facility] Medications Ordered Medication Name Filled Medication Name Start Date Stop Da te Current Medication? Ordering Clinician Indication Dosage Frequency Signature (SIG) Comments Components Source ELIQUIS 5 MG tablet 2019-09-10 00:00:00 Yes [facility] amiodarone (PACERONE) 200 MG tablet 2019-09-08 00:00:00 Yes [facility] cloNIDine HCL (CATAPRES) 0.1 MG tablet 2019-09-08 00:00:00 Yes [facility] DULoxetine (CYMBALTA) 30 MG capsule 2019-09-08 00:00:00 Yes [facility] metoclopramide HCl (REGLAN) 10 MG tablet 2019-09-08 00:00:00 Y es [facility] metoprolol tartrate (LOPRESSOR) 25 MG tablet 2019-09-08 00:00:00 Yes [facility] midodrine (PROAMATINE) 10 MG tablet 2019-09-08 00:00:00 Yes [facility] clopidogreL (PLAVIX) 75 mg tablet 2019-09-08 00:00:00 Yes [facility] pantoprazole (PROTONIX) 40 MG tablet 2019-09-08 00:00:00 Yes [facility] traZODone (DESYREL) 100 MG tablet 2019-09-08 00:00:00 Yes [facility] ezetimibe (ZETIA) 10 mg tablet 2019-09-08 00:00:00 Yes [facility] fluconazole (DIFLUCAN) 100 MG tablet 2019-09-08 00:00:00 Yes [facility] levoFLOXacin (LEVAQUIN) 500 MG tablet 2019-09-08 00:00:00 Yes [facility] Metronidazole Metronidazole 2015-05-11 12:22:00 2016-01-20 00:00:00 No 500 Three Times A Day [facility] Alprazolam Alprazolam Yes 1 Three Times A Day for Anxiety [facility] Amiodarone Hcl Amiodarone Hcl Yes 200 Daily [facility] Apixaban (Eliquis) 5 Mg TABLET Apixaban (Eliquis) 5 Mg TABLET Yes 5 Twice A Day [facility] Calcium Acetate Calcium Acetate Yes 667 Twice Da junaid With Meals [facility] Cetirizine Hcl (Zyrtec) 10 Mg CAPSULE Cetirizine Hcl (Zyrtec) 10 Mg CAPSULE Yes 1 Daily [facility] Clonidine Hcl Clonidine Hcl Yes 1 Every 6 Hours as needed for High Blood Pressure [facility] Clopidogrel Bisulfate (Plavix) 75 Mg TABLET Clopidogre l Bisulfate (Plavix) 75 Mg TABLET Yes 75 Daily [facility] Dicyclomine Hcl Dicyclomine Hcl Yes 10 Twice A Day [facility] Duloxetine Hcl (Cymbalta) 30 Mg CAPSULE. Duloxetine Hcl (Cymbalta) 30 Mg CAPSULE. Yes 30 Daily [facility] Ezetimibe (Zetia) 10 Mg TABLET Ezetimibe (Zetia) 10 Mg TABLET Yes 10 Daily@1700 [facility] Hydromorphone Hcl (Dilaudid) 2 Mg TAB Hydromorphone Hcl (Dilaudid) 2 Mg TAB Yes 4 Every 8 Hours as needed for Moderate Josh n (4-6) [facility] Hydroxyzine Hcl Hydroxyzine Hcl Yes 25 Twice A Day as needed for Itching [facility] Lactobac Cmb #3/Fos/Pantethine (Probiotic & Acidophilu s Cap) 1 Each CAPSULE Lactobac Cmb #3/Fos/Pantethine (Probiotic & Acidophilus Cap) 1 Each CAPSULE Yes 1 Daily [facility] Linzess Linzess Yes 290 Twice A Day as needed fo r Constipation [facility] Metoprolol Succinate Metoprolol Succinate Yes 12.5 Daily [facility] Midodrine Hcl Midodrine Hcl Yes 5 Three Times A Day [facility] Midodrine Hcl Midodrine Hcl Yes 5 Daily [facility] Midodrine Hcl Midodrine Hcl Yes 10 Daily [facility] Nitroglycerin Nitroglycerin Yes .4 Every 5 Minutes as needed for Chest Pain [facility] Ondansetron Hcl (Zofran) 8 Mg TABLET Ondansetron Hcl (Zofran) 8 Mg TABLET Yes 4 Every 4 Hours as needed for Nausea And V omiting [facility] Pantoprazole Sodium (Protonix) 20 Mg TABLET. Pantopr azole Sodium (Protonix) 20 Mg TABLET. Yes 20 Twice Daily Before Meals [facility] Repatha Repatha Yes 140 Q Other Thursday [facility] Trazodone Hcl Trazodone Hcl Yes 400 Bedtime [facility] Amlodipine Besylate Amlodipine Besylate 2020-01-09 00:00:00 No 10 Daily [facility] Bumetanide Bumetanide 2020-01-09 00:00:00 No 1 Twi ce A Day [facility] Dexlansoprazole (Dexilant) 30 Mg CAP. Dexlansopra zole (Dexilant) 30 Mg CAP. 2020-01-09 00:00:00 No 60 Daily [facility] Duloxetine Hcl (Cymbalta) 60 Mg CAPSULE. Duloxetine Hcl (Cymbalta) 60 Mg CAPSULE. 2020-01-09 00:00:00 No 60 Twice A Day [facility] Hydralazine Hcl Hydralazine Hcl 2020-01-09 00:00:00 No 50 Twice A Day [facility] Isosorbide Mononitrate (Isosorbide Mononitrate Er) 30 Mg TAB.ER.24H Isosorbide Mononitrate (Isosorbide Mononitrate Er) 30 Mg TAB.ER.24H 00:00:00 No 90 Twice A Day [facility] Liothyronine Sodium (Cytomel) 25 Mcg TABLET Liothyroni ne Sodium (Cytomel) 25 Mcg TABLET 2020-01-09 00:00:00 No 25 Daily [facility] Metaxalone Metaxalone 2020-01-09 00:00:00 No 800 Fou r Times Daily [facility] Metoclopramide Hcl (Reglan) 10 Mg TABLET Metoclopramid e Hcl (Reglan) 10 Mg TABLET 2020-01-09 00:00:00 No 10 Three Times A Day [facility] Metoprolol Er Metoprolol Er 2020-01-09 00:00:00 No 300 Daily [facility] Metoprolol Succinate Metoprolol Succinate 2020-01-09 00:00:00 No 1 Daily [facility] Oxybutynin Chloride Oxybutynin Chloride 2020-01-09 00:00:00 No 5 Twice A Day [facility] Potassium Chloride Potassium Chloride 2020-01-09 00:00:00 No 10 as needed for When Taking Fluid Pill [facility] Terbinafine Hcl Terbinafine Hcl 2020-01-09 00:00:00 No 250 Daily [facility] Warfarin Sodium Warfarin Sodium 2020-01-09 00:00:00 No 3 Today At 6:00PM [facility] Amlodipine Besylate (Norvasc) 5 Mg TAB Amlodipine Besylate (Norv asc) 5 Mg TAB 2019-01-06 00:00:00 No 10 Daily [facility] Liothyronine Sodium (Cytomel) 25 Mcg TABLET Liothyroni ne Sodium (Cytomel) 25 Mcg TABLET 2019-01-06 00:00:00 No 25 Daily@0600 [facility] Metoprolol Succinate Metoprolol Succinate 2019-01-06 00:00:00 No 200 Daily [facility] Warfarin Sodium (Coumadin) 2 Mg TABLET Warfarin Sodium (Coumadin ) 2 Mg TABLET 2019-01-06 00:00:00 No 4 Today At 6:00PM [facility] Buspirone Hcl Buspirone Hcl 2018-09-21 00:00:00 No 15 Twice A Day [facility] Fluconazole (Diflucan) 100 Mg TABLET Fluconazole (Diflucan) 100 Mg TABLET 2018-09-21 00:00:00 No 100 Daily [facility] Tizanidine Hcl Tizanidine Hcl 2018-09-21 00:00:00 No 4 Three Times A Day as needed for Muscle Spasms [facility] Dicyclomine Hcl Dicyclomine Hcl 2018-05-23 00:00:00 No 10 Three Times A Day as needed for Diarrhea [facility] Hydrocodone Bit/Acetaminophen (Hydrocodon-Acetaminophn 10-325) 1 Each TABLET Hydrocodone Bit/Acetaminophen (Hydrocodon-Acetaminophn 10-325) 1 Each TABLET 2018-05-23 00:00:00 No Every 8 Hours [facility] Tizanidine Hcl Tizanidine Hcl 2018-05-23 00:00:00 No 4 Three Times A Day as needed for Muscle Spasms [facility] Aspirin Aspirin 2018-03-03 00:00:00 No 81 Daily [facility] Atenolol Atenolol 2018-03-03 00:00:00 No 100 Daily [facility] Docusate Sodium Docusate Sodium 2018-03-03 00:00:00 No 250 Daily [facility] Prasugrel Hcl (Effient) 10 Mg TABLET Prasugrel Hcl (Effient) 10 Mg TABLET 2018-03-03 00:00:00 No 10 Daily [facility] Prasugrel Hcl (Effient) 10 Mg TABLET Prasugrel Hcl (Effient) 10 Mg TABLET 2018-03-03 00:00:00 No 10 Daily [facility] Docusate Sodium (Colace) 100 Mg CAP Docusate Sodium (Colace) 100 Mg CAP 2016-12-22 00:00:00 No 100 Daily [facility] Alprazolam (Xanax) 0.5 Mg TABLET Alprazolam (Xanax) 0.5 Mg TABLE T 2016-05-11 00:00:00 No 1 Three Times A Day [facility] Metformin Hcl Metformin Hcl 2016-05-11 00:00:00 No 1000 Twice A Day [facility] Olmesartan/Hydrochlorothiazide (Benicar Hct 40-25 Mg T ablet) 1 Each TABLET Olmesartan/Hydrochlorothiazide (Benicar Hct 40-25 Mg Tablet) 1 Each TABLET 2016-05-11 00:00:00 No Daily [facility] Ondansetron (Zofran Odt) 4 Mg TAB.RAPDIS Ondansetron ( Zofran Odt) 4 Mg TAB.RAPDIS 2016-05-11 00:00:00 No 4 Every 6 Hours [facility] Levalbuterol Tartrate (Xopenex Hfa) 15 Gm HFA.AER.AD L evalbuterol Tartrate (Xopenex Hfa) 15 Gm HFA.AER.AD 2016-01-13 00:00:00 No [facility] Armodafinil (Nuvigil) 150 Mg TABLET Armodafinil (Nuvigil) 150 Mg TABLET 2015-05-05 00:00:00 No 150 Daily [facility] Armodafinil (Nuvigil) 150 Mg TABLET Armodafinil (Nuvigil) 150 Mg TABLET 2015-05-05 00:00:00 No 150 Daily [facility] Fluconazole (Diflucan) 100 Mg TABLET Fluconazole (Diflucan) 100 Mg TABLET 2015-05-05 00:00:00 No 100 Daily [facility] Lactaid Lactaid 2015-05-05 00:00:00 No As Needed [facility] Levofloxacin (Levaquin) 500 Mg TABLET Levofloxacin (Levaquin) 50 0 Mg TABLET 2015-05-05 00:00:00 No 500 Daily [facility] Nasacort Nasacort 2015-05-05 00:00:00 No Daily [facility] Omeprazole/Sodium Bicarbonate (Zegerid 40 Mg Capsule) 1 Each CAPSULE Omeprazole/Sodium Bicarbonate (Zegerid 40 Mg Capsule) 1 Each CAPSULE 2015-05-05 00:00:00 No 40 Twice A Day [facility] Omeprazole/Sodium Bicarbonate (Zegerid 40 Mg Capsule) 1 Each CAPSULE Omeprazole/Sodium Bicarbonate (Zegerid 40 Mg Capsule) 1 Each CAPSULE 2015-05-05 00:00:00 No 40 [facility] Tum Tums 2015-05-05 00:00:00 No As Needed [facility] 2015-05-05 00:00:00 No Daily [facility] Benicar Benicar 2014-09-28 00:00:00 No [facility] Ciprofloxacin/Ciprofloxa Hcl (Cipro Xr 500 Mg Tablet) 500 Mg TBMP.24HR Ciprofloxacin/Ciprofloxa Hcl (Cipro Xr 500 Mg Tablet) 500 Mg TBMP.24HR 2014-09-28 00:00:00 No Daily [facility] Flucananzole Flucananzole 2014-09-28 00:00:00 No 100 Daily [facility] 2014-09-28 00:00:00 No [facility] 2014-09-28 00:00:00 No [facility] Alprazolam (Xanax Xr) 1 Mg TAB.ER.24H Alprazolam (Xanax Xr) 1 Mg TAB.ER.24H 2014-08-28 00:00:00 No 3 As Needed [facility] Aspirin (Aspir 81) 81 Mg TABLET. Aspirin (Aspir 81) 81 Mg TABL ET. 2014-08-26 00:00:00 No 81 Daily [facility] Clonidine Hcl Clonidine Hcl 2014-08-26 00:00:00 No .2 As Needed [facility] Fluticasone/Salmeterol (Advair 100-50 Diskus) 1 Each D ISK.W.DEV Fluticasone/Salmeterol (Advair 100-50 Diskus) 1 Each DISK.W.DEV 2014-08-26 00:00:00 No 1 As Needed [facility] Fluticasone/Salmeterol (Advair 100-50 Diskus) 1 Each D ISK.W.DEV Fluticasone/Salmeterol (Advair 100-50 Diskus) 1 Each DISK.W.DEV 2014-08-26 00:00:00 No 1 Twice A Day [facility] Meloxicam Meloxicam 2014-08-26 00:00:00 No 7.5 Twice A Day [facility] Tramadol Hcl (Rybix Odt) 50 Mg TAB.RAPDIS Tramadol Hcl (Rybix Odt) 50 Mg TAB.RAPDIS 2014-08-26 00:00:00 No 50 As Needed [facility] Chlorzoxazone (Parafon Forte Dsc) 500 Mg TABLET Chlorz oxazone (Parafon Forte Dsc) 500 Mg TABLET 2013-03-01 00:00:00 No 500 Daily [facility] Vital Signs Vital Name Observation Time Observation Value Comments Source Body Temperature 2020-01-10 11:39:00 98.1 [degF] [facility] Heart Rate 2020-01-10 11:39:00 68 /min [facility] Respiratory rate 2020-01-10 11:39:00 16 /min [facility] BP Systolic 2020-01-10 11:39:00 98 mm[Hg] [facility] BP Diastolic 2020-01-10 11:39:00 51 mm[Hg] [facility] Oxygen saturation by Pulse oximetry 2020-01-10 11:39:00 95 /min [facility] Weight 2020-01-09 10:22:00 221 [lb_av] [facility] BMI (Body Mass Index) 2020-01-09 10:22:00 35.7 kg/m2 [facility] Procedures Procedure Date / Time Performed Performing Clinician [facility] PERFORMANCE OF URINARY FILTRATION, <6 HRS/DAY 2019-06-01 00:00:0 0 [facility] PERFORMANCE OF URINARY FILTRATION, <6 HRS/DAY 2019-05-30 00:00:0 0 [facility] REVISION OF INFUSION DEVICE IN UPPER ARTERY, PERC APPROACH 2 00:00:00 [facility] REPOSITION LEFT BRACHIAL ARTERY, OPEN APPROACH 2019-05-30 00:00: 00 [facility] Ultrasound guidance for vascular access 2019-05-28 00:00:00 PAPO MARY [facility] INSERTION OF INFUSION DEV INTO INF VENA CAVA, PERC APPROACH 2019-05-28 00:00:00 [facility] ULTRASONOGRAPHY OF INFERIOR VENA CAVA, GUIDANCE 2019-05-28 00:00 :00 [facility] PERFORMANCE OF URINARY FILTRATION, <6 HRS/DAY 2019-05-28 00:00:0 0 [facility] PERFORMANCE OF URINARY FILTRATION, <6 HRS/DAY 2019-05-26 00:00:0 0 [facility] PERFORMANCE OF URINARY FILTRATION, <6 HRS/DAY 2019-05-25 00:00:0 0 [facility] INTRODUCTION OF VASOPRESSOR INTO CENTRAL VEIN, PERC AP PROACH 2019-05-25 00:00:[address] [facility] CT of abdomen and pelvis without contrast 2019-05-25 00:00:00 [facility] REMOVAL OF INFUSION DEVICE FROM LOWER VEIN, [facility] APPROACH 05-22 00:00:00 [facility] INSERTION OF INFUSION DEVICE INTO R [facility], [facility] APPROACH 05-22 00:00:00 [facility] INSERT OF TUNNEL VAD INTO CHEST SUBCU/FASCIA, [facility] APPROACH 2019-05-23 00:00:00 [facility] PERFORMANCE OF URINARY FILTRATION, <6 HRS/DAY 2019-05-23 00:00:0 0 [facility] PERFORMANCE OF URINARY FILTRATION, <6 HRS/DAY 2019-05-20 00:00:0 0 [facility] PERFORMANCE OF URINARY FILTRATION, <6 HRS/DAY 2019-05-19 00:00:0 0 [facility] PERFORMANCE OF URINARY FILTRATION, <6 HRS/DAY 2019-05-18 00:00:0 0 [facility] PERFORMANCE OF URINARY FILTRATION, <6 HRS/DAY 2019-05-17 00:00:0 0 [facility] INSERTION OF INFUSION DEV INTO SUP VENA CAVA, PERC APPROACH 2019-05-16 00:00:00 [facility] ULTRASONOGRAPHY OF SUPERIOR VENA CAVA, GUIDANCE 2019-05-16 00:00 :00 [facility] PERFORMANCE OF URINARY FILTRATION, <6 HRS/DAY 2019-05-16 00:00:0 0 [facility] Echo guide for biopsy 2019-05-16 00:00:00 [facility] ASSISTANCE WITH RESPIRATORY VENTILATION, <24 HRS, CPAP 2019-04-24 2 00:00:00 [facility] Plan of Care Planned Activity Planned Date Details Comments Source Instructions AV Fistula Care [facility] Instructions Infection Control [facility] Encounters Start Date/Time End Date/Time Encounter Type Admission Type Attendi [facility] Care Department Encounter ID Source 2020-01-09 10:31:00 2020-01-10 14:55:00 Discharged Inpatient (obs) [facility] [id number] [facility]ical [place] 2019-05-13 21:25:00 2019-06-01 20:14:00 Discharged Inpatient 1 KYLEE ACOSTA [facility] [id number] [facility] 2019-02-11 08:52:00 2019-02-11 08:52:00 Registered Clinic 3 [facility] [facility] [id number] [facility] Med ical [place] 2019-01-13 11:31:00 2019-01-13 11:31:00 Registered Surgical Day Car e Luisa EZEKIELDALIA Lala [facility] [id number] [facility] 2019-01-07 06:16:00 2019-01-07 06:16:00 Registered Surgical Day Car e PRISCILLA WEST [facility] [id number] [facility] 2018-12-14 06:26:00 2018-12-14 06:26:00 Registered Surgical Day Care [facility] [id number] [facility] 2018-11-09 16:41:00 2018-11-09 18:41:00 Departed Emergency Room [facility] [id number] [facility] 2018-09-20 16:13:00 2018-09-20 16:13:00 Registered Clinic 3 AN BETANCOURT [facility] [id number] [facility] 2018-05-23 20:43:00 2018-05-31 19:04:00 Discharged Inpatient 1 KYLEE ACOSTA [facility] [id number] [facility] 2018-03-03 16:41:00 2018-03-22 20:24:00 Discharged Inpatient 1 KYLEE ACOSTA [facility] [id number] [facility] 2018-01-25 22:11:00 2018-01-26 03:06:00 Departed Emergency Room 1 RONY RONDON [facility] [id number] [facility] 2017-11-11 08:51:00 2017-11-11 08:51:00 Registered Clinic [facility] [id number] [facility] 2017-11-04 09:07:00 2017-11-04 09:07:00 Registered Clinic [facility] [id number] [facility] 2017-07-19 13:40:00 2017-07-24 18:29:00 Discharged Inpatient ER KYLEE ACOSTA [facility] [id number] [facility] 2017-07-09 16:40:00 2017-07-18 14:58:00 Discharged Inpatient ER KYLEE ACOSTA [facility] [id number] [facility] 2016-12-22 17:14:00 2016-12-24 16:25:00 Discharged Inpatient ER KYLEE ACOSTA [facility] [id number] [facility] Results Test Description Test Time Test Comments Results Result Comments Source Capillary blood glucose measurement by glucometer (mas s/volume) 2020-01-10 10:38:00 Test Item Bedside Glucose (test code = 20264-8) 99 mg/dL 70-120 Meter ID: [id number] [facility] HospitalBlood leukocytes automated count (number/volume)2020-01-10 05:40:00* Test Item Value Reference Range Interpretation Comments White Blood Count (test code = 6690-2) 13.74 10*3/uL 4.8-10.8 [facility]Blood erythrocytes automated count (number/volume)2020-01-10 05:40:00* Test Item Value Reference Range Interpretation Comments Red Blood Count (test code = 789-8) 3.30 10*6/mL 3.6-5.1 [facility] HospitalBlood hemoglobin measurement (moles/volume)2020-01-10 05:40:00* Test Item Value Reference Range Interpretation Comments Hemoglobin (test code = 63282-1) 9.6 g/dL 12.0-16.0 [facility] HospitalAutomated blood hematocrit (volume fraction)2020-01-10 05:40:00* Test Item Value Reference Range Interpretation Comments Hematocrit (test code = 4544-3) 29.4 % 34.2-44.1 [facility] HospitalAutomated erythrocyte mean corpuscular fzzyan8930-80-08 05:40:00* Test Item Value Reference Range Interpretation Comments Mean Corpuscular Volume (test code = 787-2) 89.1 81-99 [facility] HospitalAutomated erythrocyte mean corpuscular hemoglobin (mass per erythrocyte)2020-01-10 05:40:00* Test Item Value Reference Range Interpretation Comments Mean Corpuscular Hemoglobin (test code = 785-6) 29.1 pg 28-32 [facility] HospitalAutomated erythrocyte mean corpuscular hemoglobin concentration measurement (mass/volume)2020-01-10 05:40:00* Test Item Value Reference Range Interpretation Comments Mean Corpuscular Hemoglobin Concent (test code = 786-4) 32.7 g/dL 31-35 [facility] HospitalRDW JvtTl-Pqz9576-69-20 05:40:00* Test Item Value Reference Range Interpretation Comments Red Cell Distribution Width (test code = 14308-3) 17.2 % 11.7 -14.4 [facility] HospitalAutomated blood platelet count (count/volume)2020-01-10 05:40:00* Test Item Value Reference Range Interpretation Comments Platelet Count (test code = 777-3) 487 10*3/uL 140-360 [facility] HospitalAutomated blood segmented neutrophil count as percentage of total dmoonfjhtj9841-03-55 05:40:00* Test Item Value Reference Range Interpretation Comments Neutrophils (%) (Auto) (test code = 33046-9) 67.4 % 38.7-80.0 [facility] HospitalAutomated blood lymphocyte count as percentage ot total wonjlhijfx7921-60-99 05:40:00* Test Item Value Reference Range Interpretation Comments Lymphocytes (%) (Auto) (test code = 736-9) 26.1 % 18.0-39.1 [facility] HospitalAutomated blood monocyte count as percentage of total vmwrdpblry4208-44-33 05:40:00* Test Item Value Reference Range Interpretation Comments Monocytes (%) (Auto) (test code = 5905-5) 5.6 % 4.4-11.3 [facility] HospitalAutomated blood eosinophil count as percentage of total giqnzqyzzr1368-39-77 05:40:00* Test Item Value Reference Range Interpretation Comments Eosinophils (%) (Auto) (test code = 713-8) 0.1 % 0.0-6.0 [facility] HospitalAutomated blood basophil count as percentage of total gopjpvcrrg3404-21-90 05:40:00* Test Item Value Reference Range Interpretation Comments Basophils (%) (Auto) (test code = 706-2) 0.4 % 0.0-1.0 [facility] HospitalFluoroscopic procedure less than one hour mgixfjnb1826-67-87 05:40:00* Test Item Value Reference Range Interpretation Comments IM GRANULOCYTES % (test code = IM GRANULOCYTES %) 0.4 % 0.0- 1.0 [facility] HospitalAutomated blood neutrophil count 2020-01-10 05:40:00* Test Item Value Reference Range Interpretation Comments Neutrophils # (Auto) (test code = 751-8) 9.3 2.1-6.9 [facility] HospitalBlood lymphocytes count (number/volume) 2020-01-10 05:40:00* Test Item Value Reference Range Interpretation Comments Lymphocytes # (Auto) (test code = 14930-4) 3.6 1.0-3.2 [facility] HospitalBlood monocytes automated count (number/volume)2020-01-10 05:40:00* Test Item Value Reference Range Interpretation Comments Monocytes # (Auto) (test code = 742-7) 0.8 0.2-0.8 [facility] HospitalAutomated blood eosinophil count 2020-01-10 05:40:00* Test Item Value Reference Range Interpretation Comments Eosinophils # (Auto) (test code = 711-2) 0.0 0.0-0.4 [facility] HospitalAutomated blood basophil count (count/volume)2020-01-10 05:40:00* Test Item Value Reference Range Interpretation Comments Basophils # (Auto) (test code = 704-7) 0.1 0.0-0.1 [facility] HospitalFluoroscopic procedure less than one hour pfajlngl9061-43-40 05:40:00* Test Item Value Reference Range Interpretation Comments Absolute Immature Granulocyte (auto (ortega t code = Absolute Immature Granulocyte (auto) 0.06 10*3/uL 0-0.1 [facility] sodium measurement (moles/volume)2020-01-10 05:40:00* Test Item Value Reference Range Interpretation Comments Sodium Level (test code = 2951-2) 136 mmol/L 136-145 [facility]er[facility] plasma potassium measurement (moles/volume)2020-01-10 05:40:00* Test Item Value Reference Range Interpretation Comments Potassium Level (test code = 2823-3) 5.1 mmol/L 3.5-5.1 [facility] plasma chloride measurement (moles/volume)2020-01-10 05:40:00* Test Item Value Reference Range Interpretation Comments Chloride Level (test code = 2075-0) 99 mmol/L 98-107 [facility] Renaissanceerum or plasma carbon dioxide, total measurement (moles/volume)2020-01-10 05:40:00* Test Item Value Reference Range Interpretation Comments Carbon Dioxide Level (test code = 2028-9) 25 mmol/L 22-29 [facility] Renaissanceerum or plasma anion lcy9741-61-86 05:40:00* Test Item Value Reference Range Interpretation Comments Anion Gap (test code = 58845-5) 17.1 mmol/L 8-16 [facility]er[facility] or plasma urea nitrogen measurement (mass/volume)2020-01-10 05:40:00* Test Item Value Reference Range Interpretation Comments Blood Urea Nitrogen (test code = 3094-0) 28 mg/dL 7-26 [facility] or plasma creatinine measurement (mass/volume)2020-01-10 05:40:00* Test Item Value Reference Range Interpretation Comments Creatinine (test code = 2160-0) 4.46 mg/dL 0.57-1.11 [facility] or plasma urea nitrogen/creatinine mass tieyk6885-93-61 05:40:00* Test Item Value Reference Range Interpretation Comments BUN/Creatinine Ratio (test code = 3097-3) 6 6-25 [facility] HospitalEstimated glomerular filtration rate (GFR) bcteoubnbgyxh2608-61-94 05:40:00* Test Item Value Reference Range Interpretation Comments Estimat Glomerular Filtration Rate (test code = 136363051) 10 mL/mi n >60 Ranges were taken from the National Kidney Disease Education Program and the [employer] literature.Reference ranges:60 or greater: Hklwuw37-92 ( for 3 consecutive months): Chronic kidney disease 15 or less: Kidney failureSouth [facility] Spine & Surgical HospitalGlucose wtcsulkiqrs3982-28-26 05:40:00* Test Item Value Reference Range Interpretation Comments Glucose Level (test code = BFC4420) 90 mg/dL 74-118 [facility] or plasma calcium measurement (mass/volume)2020-01-10 05:40:00* Test Item Value Reference Range Interpretation Comments Calcium Level (test code = 92269-9) 8.6 mg/dL 8.4-10.2 [facility]er[facility] or plasma total bilirubin measurement (mass/volume)2020-01-10 05:40:00* Test Item Value Reference Range Interpretation Comments Total Bilirubin (test code = 1975-2) 0.5 mg/dL 0.2-1.2 [facility] HospitalFluoroscopic procedure less than one hour mekbpxdt0576-47-78 05:40:00* Test Item Value Reference Range Interpretation Comments Aspartate Amino Transf (AST/SGOT) (test code = Aspartate Amino Transf (AST/SGOT)) 14 [IU]/L 5-34 [facility] Renaissanceer[facility] or plasma alanine aminotransferase measurement (enzymatic activity/volume)2020-01-10 05:40:00* Test Item Value Reference Range Interpretation Comments Alanine Aminotransferase (ALT/SGPT) (test code = 1742-6) 8 [IU]/L 0-55 [facility] or plasma protein measurement (mass/volume)2020-01-10 05:40:00* Test Item Value Reference Range Interpretation Comments Total Protein (test code = 2885-2) 6.4 g/dL 6.5-8.1 [facility] or plasma albumin measurement (mass/volume)2020-01-10 05:40:00* Test Item Value Reference Range Interpretation Comments Albumin (test code = 1751-7) 2.8 g/dL 3.5-5.0 [facility] HospitalPlasma globulin measurement (mass/volume) 2020-01-10 05:40:00* Test Item Value Reference Range Interpretation Comments Globulin (test code = 74427-4) 3.6 g/dL 2.3-3.5 [facility] Renaissanceerum or plasma albumin/globulin mass ekniu4734-87-54 05:40:00* Test Item Value Reference Range Interpretation Comments Albumin/Globulin Ratio (test code = 1759-0) 0.8 0.8-2.0 [facility]er[facility] or plasma alkaline phosphatase measurement (enzymatic activity/volume)2020-01-10 05:40:00* Test Item Value Reference Range Interpretation Comments Alkaline Phosphatase (test code = 6768-6) 56 [IU]/L 40-150 [facility] HospitalProthrombin time (PT) in platelet poor plasma by coagulation dygis5794-26-07 11:43:00* Test Item Value Reference Range Interpretation Comments Prothrombin Time (test code = 5902-2) 13.6 s 11.9-14.5 [facility] HospitalINR in Platelet poor plasma by Coagulation cfysr5922-46-35 11:43:00* Test Item Value Reference Range Interpretation Comments Prothromb Time International Ratio (test code = 6301-6) 0.99 Oral Anticoagulant Therapy INR Values:1. Low Intensity Therapy 1.5 - 2.02 . Moderate Intensity Therapy 2.0 - 3.03. High Intensity Therapy(1) 2.5 - 3. 54. High Intensity Therapy(2) 3.0 - 4.05. Panic Value INR > 5.0 [facility] or plasma creatine kinase measurement (enzymatic activity/volume)2020-01-09 11:43:00* Test Item Value Reference Range Interpretation Comments Creatine Kinase (test code = 2157-6) 24 [IU]/L 29-168 [facility] Renaissanceer[facility] or plasma creatine kinase MB measurement (mass/volume)2020-01-09 11:43:00* Test Item Value Reference Range Interpretation Comments Creatine Kinase MB (test code = 91436-9) 0.90 ng/mL 0-5.0 [facility] HospitalTroponin I measurement by highly sensitive enzyme cwnwsavaqeb9663-76-20 11:43:00* Test Item Value Reference Range Interpretation Comments Troponin I (test code = 16536-1) 0.015 ng/mL 0-0.300 [facility] HospitalDifferential Total Cells Counted 2019-06-01 09:32:00* Test Item Value Reference Range Interpretation Comments Differential Total Cells Counted (test code = Differkari tial Total Cells Counted) 100 [facility] HospitalNeutrophils % (Manual)2019-06-01 09:32:00 * Test Item Value Reference Range Interpretation Comments Neutrophils % (Manual) (test code = 52456-4) 85 40-74 H [facility] HospitalLymphocytes % (Manual)2019-06-01 09:32:00 * Test Item Value Reference Range Interpretation Comments Lymphocytes % (Manual) (test code = 737-7) 11 19-48 L [facility] HospitalMonocytes % (Manual)2019-06-01 09:32:00* Test Item Value Reference Range Interpretation Comments Monocytes % (Manual) (test code = 744-3) 3 3.4-9.0 L [facility] HospitalEosinophils % (Manual)2019-06-01 09:32:00 * Test Item Value Reference Range Interpretation Comments Eosinophils % (Manual) (test code = 714-6) 1 0-7 [facility] HospitalPlatelet Bhpgljwu7204-92-10 09:32:00* Test Item Value Reference Range Interpretation Comments Platelet Estimate (test code = 93707-7) ADEQUATE [facility] HospitalPlatelet Morphology Kiubrfa7884-13-21 09:32:00* Test Item Value Reference Range Interpretation Comments Platelet Morphology Comment (test code = 13710-7) NORMAL [facility] HospitalPoikilocytosis2020-03-11 09:32:00* Test Item Value Reference Range Interpretation Comments Poikilocytosis (test code = 779-9) SLIGHT [facility] HospitalAnisocytosis2020-03-11 09:32:00* Test Item Value Reference Range Interpretation Comments Anisocytosis (test code = 702-1) SLIGHT [facility] HospitalRed Cell Morphology Nehwpbw4385-00-55 09:32:00* Test Item Value Reference Range Interpretation Comments Red Cell Morphology Comment (test code = 6742-1) NORMAL [facility] Renaissance[facility] Lmkgm9834-53-78 06:30:00* Test Item Value Reference Range Interpretation Comments Sodium Level (test code = 2951-2) 135 136-145 L [facility] HospitalPotassium Yqsqn5739-72-96 06:30:00* Test Item Value Reference Range Interpretation Comments Potassium Level (test code = 2823-3) 3.9 3.5-5.1 [facility] HospitalChloride Cepme4002-30-00 06:30:00* Test Item Value Reference Range Interpretation Comments Chloride Level (test code = 2075-0) 101 98-107 [facility] HospitalCarbon Dioxide Mkszr4981-74-71 06:30:00* Test Item Value Reference Range Interpretation Comments Carbon Dioxide Level (test code = 2028-9) 27 22-29 [facility] HospitalAnion Jry4794-86-98 06:30:00* Test Item Value Reference Range Interpretation Comments Anion Gap (test code = 72655-8) 10.9 8-16 [facility] HospitalBlood Urea Tocxbtly0419-67-73 06:30:00* Test Item Value Reference Range Interpretation Comments Blood Urea Nitrogen (test code = 3094-0) 20 7-26 [facility] HospitalCreatinine2020-03-11 06:30:00* Test Item Value Reference Range Interpretation Comments Creatinine (test code = 2160-0) 5.23 0.57-1.11 H [facility] HospitalBUN/Creatinine Qvyek4190-25-35 06:30:00* Test Item Value Reference Range Interpretation Comments BUN/Creatinine Ratio (test code = 3097-3) 4 6-25 L [facility] HospitalEstimat Glomerular Filtration Rate 2019-06-01 06:30:00* Test Item Value Reference Range Interpretation Comments Estimat Glomerular Filtration Rate (test code = 380988820) 8 >60 L Ranges were taken from the National Kidney Disease Education Program and the [employer] literature.Reference ranges:60 or greater: Tlzind45-86 ( for 3 consecutive months): Chronic kidney disease 15 or less: Kidney failureSouth [facility] Spine & Surgical HospitalGlucose Kuvds1187-86-94 06:30:00* Test Item Value Reference Range Interpretation Comments Glucose Level (test code = OVY3878) 105 74-118 [facility] HospitalCalcium Ftbze4304-36-59 06:30:00* Test Item Value Reference Range Interpretation Comments Calcium Level (test code = 59142-9) 8.8 8.4-10.2 [facility] HospitalMagnesium Mbpzp9610-11-33 06:30:00* Test Item Value Reference Range Interpretation Comments Magnesium Level (test code = 71760-3) 1.8 1.3-2.1 [facility] HospitalTotal Ipyjwvqfe8938-65-76 06:30:00* Test Item Value Reference Range Interpretation Comments Total Bilirubin (test code = 1975-2) 1.3 0.2-1.2 H [facility] HospitalAspartate Amino Transf (AST/SGOT) 2019-06-01 06:30:00* Test Item Value Reference Range Interpretation Comments Aspartate Amino Transf (AST/SGOT) (test code = Aspartate Amino Transf (AST/SGOT)) 96 5-34 H [facility] HospitalAlanine Aminotransferase (ALT/SGPT) 2019-06-01 06:30:00* Test Item Value Reference Range Interpretation Comments Alanine Aminotransferase (ALT/SGPT) (test code = 1742-6) 21 0-55 [facility] Bzgruai5419-69-22 06:30:00* Test Item Value Reference Range Interpretation Comments Total Protein (test code = 2885-2) 6.1 6.5-8.1 L [facility] HospitalAlbumin2020-03-11 06:30:00* Test Item Value Reference Range Interpretation Comments Albumin (test code = 1751-7) 2.3 3.5-5.0 L [facility] HospitalGlobulin2020-03-11 06:30:00* Test Item Value Reference Range Interpretation Comments Globulin (test code = 99083-1) 3.8 2.3-3.5 H [facility] HospitalAlbumin/Globulin Uflpr4741-63-85 06:30:00 * Test Item Value Reference Range Interpretation Comments Albumin/Globulin Ratio (test code = 1759-0) 0.6 0.8-2.0 L [facility] HospitalAlkaline Fihqfqlzyap3114-70-18 06:30:00* Test Item Value Reference Range Interpretation Comments Alkaline Phosphatase (test code = 6768-6) 864 40-150 H [facility] HospitalWhite Blood Kvgwi9228-38-78 06:04:00* Test Item Value Reference Range Interpretation Comments White Blood Count (test code = 6690-2) 20.09 4.8-10.8 H [facility] HospitalRed Blood Igfxf1789-23-24 06:04:00* Test Item Value Reference Range Interpretation Comments Red Blood Count (test code = 789-8) 4.14 3.6-5.1 [facility] HospitalHemoglobin2020-03-11 06:04:00* Test Item Value Reference Range Interpretation Comments Hemoglobin (test code = 42921-6) 12.1 12.0-16.0 [facility] HospitalHematocrit2020-03-11 06:04:00* Test Item Value Reference Range Interpretation Comments Hematocrit (test code = 4544-3) 37.3 34.2-44.1 [facility] HospitalMean Corpuscular Gdybpu8873-19-08 06:04:00* Test Item Value Reference Range Interpretation Comments Mean Corpuscular Volume (test code = 787-2) 90.1 81-99 [facility] HospitalMean Corpuscular Uiadkfpdvy4670-10-43 06:04:00* Test Item Value Reference Range Interpretation Comments Mean Corpuscular Hemoglobin (test code = 785-6) 29.2 28-32 [facility] HospitalMean Corpuscular Hemoglobin Concent 2019-06-01 06:04:00* Test Item Value Reference Range Interpretation Comments Mean Corpuscular Hemoglobin Concent (test code = 786-4) 32.4 31-35 [facility] HospitalRed Cell Distribution Mcaoq0462-59-51 06:04:00* Test Item Value Reference Range Interpretation Comments Red Cell Distribution Width (test code = 57847-7) 16.9 11.7 -14.4 H [facility] HospitalPlatelet Zamaf8654-11-96 06:04:00* Test Item Value Reference Range Interpretation Comments Platelet Count (test code = 777-3) 331 140-360 [facility] HospitalNeutrophils (%) (Auto)2019-06-01 06:04:00 * Test Item Value Reference Range Interpretation Comments Neutrophils (%) (Auto) (test code = 33538-8) 76.7 38.7-80.0 [facility] HospitalLymphocytes (%) (Auto)2019-06-01 06:04:00 * Test Item Value Reference Range Interpretation Comments Lymphocytes (%) (Auto) (test code = 736-9) 10.1 18.0-39.1 L [facility] HospitalMonocytes (%) (Auto)2019-06-01 06:04:00* Test Item Value Reference Range Interpretation Comments Monocytes (%) (Auto) (test code = 5905-5) 9.4 4.4-11.3 [facility] HospitalEosinophils (%) (Auto)2019-06-01 06:04:00 * Test Item Value Reference Range Interpretation Comments Eosinophils (%) (Auto) (test code = 713-8) 2.2 0.0-6.0 [facility] HospitalBasophils (%) (Auto)2019-06-01 06:04:00* Test Item Value Reference Range Interpretation Comments Basophils (%) (Auto) (test code = 706-2) 0.5 0.0-1.0 [facility] HospitalIM GRANULOCYTES %2019-06-01 06:04:00* Test Item Value Reference Range Interpretation Comments IM GRANULOCYTES % (test code = IM GRANULOCYTES %) 1.1 0.0- 1.0 H [facility] HospitalNeutrophils # (Auto)2019-06-01 06:04:00* Test Item Value Reference Range Interpretation Comments Neutrophils # (Auto) (test code = 751-8) 15.4 2.1-6.9 H [facility] HospitalLymphocytes # (Auto)2019-06-01 06:04:00* Test Item Value Reference Range Interpretation Comments Lymphocytes # (Auto) (test code = 71937-4) 2.0 1.0-3.2 [facility] HospitalMonocytes # (Auto)2019-06-01 06:04:00* Test Item Value Reference Range Interpretation Comments Monocytes # (Auto) (test code = 742-7) 1.9 0.2-0.8 H [facility] HospitalEosinophils # (Auto)2019-06-01 06:04:00* Test Item Value Reference Range Interpretation Comments Eosinophils # (Auto) (test code = 711-2) 0.5 0.0-0.4 H [facility] HospitalBasophils # (Auto)2019-06-01 06:04:00* Test Item Value Reference Range Interpretation Comments Basophils # (Auto) (test code = 704-7) 0.1 0.0-0.1 [facility] HospitalAbsolute Immature Granulocyte (auto 2019-06-01 06:04:00* Test Item Value Reference Range Interpretation Comments Absolute Immature Granulocyte (auto (ortega t code = Absolute Immature Granulocyte (auto) 0.23 0-0.1 H [facility] HospitalFluoroscopic procedure less than one hour gpatfwsd5011-70-56 05:00:00* Test Item Value Reference Range Interpretation Comments Differential Total Cells Counted (test code = Dhaval tial Total Cells Counted) 100 [facility] blood neutrophils/100 leukocytes 2019-06-01 05:00:00* Test Item Value Reference Range Interpretation Comments Neutrophils % (Manual) (test code = 59717-4) 85 % 40-74 [facility] blood lymphocytes/100 leukocytes 2019-06-01 05:00:00* Test Item Value Reference Range Interpretation Comments Lymphocytes % (Manual) (test code = 737-7) 11 % 19-48 [facility] blood monocytes/100 leukocytes 2019-06-01 05:00:00* Test Item Value Reference Range Interpretation Comments Monocytes % (Manual) (test code = 744-3) 3 % 3.4-9.0 [facility] blood eosinophil count as percentage of total lvwlwfgfmr9275-21-37 05:00:00* Test Item Value Reference Range Interpretation Comments Eosinophils % (Manual) (test code = 714-6) 1 % 0-7 [facility] HospitalBlood platelets count by estimate (number/volume)2019-06-01 05:00:00* Test Item Value Reference Range Interpretation Comments Platelet Estimate (test code = 09874-3) ADEQUATE [facility] HospitalPlatelet gpvchhdpyd7598-03-54 05:00:00* Test Item Value Reference Range Interpretation Comments Platelet Morphology Comment (test code = 92957-2) NORMAL [facility] HospitalBlood poikilocytosis detection by light gvdnrcetrd2793-06-71 05:00:00* Test Item Value Reference Range Interpretation Comments Poikilocytosis (test code = 779-9) SLIGHT [facility] HospitalBlood anisocytosis detection by light aveylpoymk8606-42-90 05:00:00* Test Item Value Reference Range Interpretation Comments Anisocytosis (test code = 702-1) SLIGHT [facility] [place] [facility] HospitalRBC wokysvjril7355-71-86 05:00:00* Test Item Value Reference Range Interpretation Comments Red Cell Morphology Comment (test code = 6742-1) NORMAL [facility] or plasma magnesium measurement (mass/volume)2019-06-01 05:00:00* Test Item Value Reference Range Interpretation Comments Magnesium Level (test code = 59575-8) 1.8 mg/dL 1.3-2.1 [facility] [place] [facility] HospitalTUNNELLED CVC INSERT W/O VMOJ1791-51-05 15:05:00 [facility] [address] [place] [address] Patient Name: GABBIE TOBIN MR #: [id number] : 1955 Age/Sex: 63/F Req #: [id number] Adm Physician: KYLEE ACOSTA MD Ordered by: USMAN AMRIE, PAPO MARIE Report #: [id number] Location: [facility] Room/Bed: [place] [address] Procedure: 8924-2327 IR/TUNNELLED CVC INSERT W/O PORT Exam Date: [...] stable. Physician intra-service kade e was 20. Aerial Erector: MD Larry. Student Services Vice President : None. Approach: Via indwe lling left [...] for performing radiologist and scrub technologist. Initial chief client officer images demonstrate indwelling left IJ tunnel dialysis catheter tip terminating within the proximal SVC. 1% lidocaine was used for local anesthesia. A 0.035 Amplatz wire was advanced through the indwelling catheter into the IVC. The existing catheter was removed over wire. A new 14.5 Mauritian 28 cm tip the cuff catheter was [...] Interpretation Comments Bedside Glucose (test code = 58656-8) 88 70-120 Meter ID: [id number] [place] Spine & Surgical HospitalUrine Culture 2019-05-30 07:07:00* Test Item Value Reference Range Interpretation Comments Urine Culture (test code = 630-4) No Result Data Provided [facility] HospitalPhosphorus Naghr8753-36-38 06:16:00* Test Item Value Reference Range Interpretation Comments Phosphorus Level (test code = ZGX2879) 3.2 2.3-4.7 [facility] [place] [facility] HospitalProthrombin Vgzq3056-14-41 06:12:00* Test Item Value Reference Range Interpretation Comments Prothrombin Time (test code = 5902-2) 12.7 11.9-14.5 [facility] [place] [facility] HospitalProthromb Time International Ratio 2019-05-30 06:12:00* Test Item Value Reference Range Interpretation Comments Prothromb Time International Ratio (test code = 6301-6) 0.90 Oral Anticoagulant Therapy INR Values:1. Low Intensity Therapy 1.5 - 2.02 . Moderate Intensity Therapy 2.0 - 3.03. High Intensity Therapy(1) 2.5 - 3. 54. High Intensity Therapy(2) 3.0 - 4.05. Panic Value INR > 5.0 [facility] [place] [facility] HospitalActivated Partial Thromboplast Time 2019-05-30 06:12:00* Test Item Value Reference Range Interpretation Comments Activated Partial Thromboplast Time (test code = 11177-1) 36.0 23.8-35.5 H [facility] [place] [facility] HospitalActivated partial thromboplastin time (aPTT) in platelet poor plasma by coagulation cxtcz0618-89-49 05:30:00* Test Item Value Reference Range Interpretation Comments Activated Partial Thromboplast Time (test code = 81121-7) 36.0 s 23.8-35.5 [facility] [place] [facility] HospitalPhosphorus jvnjecqzlvb4819-45-11 05:30:00 * Test Item Value Reference Range Interpretation Comments Phosphorus Level (test code = UWI7981) 3.2 mg/dL 2.3-4.7 [facility] [place] [facility] HospitalCHEST SINGLE (PORTABLE)2019-05-29 10:13:00 [facility] [address] [address] Patient Name: GABBIE TOBIN MR #: [id number] : 1955 Age/Sex: 63/F Req #: [id number] Adm Physician: KYLEE ACOSTA MD Ordered by: BHAVESH ABBASI MD Report #: [id number] Location: ICU Room/Bed: ICU [facility] Procedure: 3858-1806 DX /CHEST SINGLE (PORTABLE) Exam Date: 05/29/19 [...] 05/29/19 1016 COPY TO: BHAVESH ABBASI MD CENT JASSON PLMT OR BPG9969-91-94 18:17:00 [place] [address] Patient Name: GABBIE TOBIN MR #: [id number] : 1955 Age/Sex: 63/F Req #: [id number] Adm Physician: KYLEE ACOSTA MD Ordered by: USMAN MARIE, PAPO MARIE Report #: [id number] Location: ICU Room/Bed: ICU [facility] Procedure: 1672-6071 IR/FLORINDA ARRIAGAI [facility] PLMT OR REM Exam Date: Exam Time: REPORT STATUS: Signed Mukul e and Time: 05/28/2019 Procedure: Right internal jugular temporary hemodialys is catheter placement transmissions systems operator: Dr. Briceño Pre-operative shyam gnosis: End-stage [...] loss: Minimal Sp ecimens: None Implants: 13 Mauritian 15 cm triple-lumen hi flow central venous [...] the tract was dilated. Then a 13 Mauritian 15 cmtri ple-lumen central high flow venous [...] vein IMPRESSION: Successful placement of a 13 Mauritian, 15 cm triple-lumen hi flow central venous catheter by a right internal jugular approach under sonographic and fluoroscopic guidance. Signed by: Dr. Edith Briceño M.D. on 05/28/2019 6:20 PM Dictated By: EDITH Craven 19 Transcribed By: ALEXIA on 05/28/191819 COPY TO: PAPO MARY NON-TUNNELLED CVC CATH RQQUGIB6945-18-84 18:17:00 [place] [address] Patient Name: GABBIE TOBIN MR #: [id number] : 1955 Age/Sex: 63/F Req #: [id number] Adm Physician: KYLEE ACOSTA MD Ordered by: USMAN MARIE, PAPO MARIE Report #: [id number] Location: ICU Room/Bed: ICU [facility] Procedure: IR/NON-TUNNELLED CVC CATH PLACMNT Exam Date: Exam Time: REPORT STATUS: Signed Mukul e and Time: 05/28/2019 Procedure: Right internal jugular temporary hemodialys is catheter placement transmissions systems operator: Dr. Briceño Pre-operative shyam gnosis: End-stage [...] loss: Minimal Sp ecimens: None Implants: 13 Mauritian 15 cm triple-lumen hi flow central venous [...] the tract was dilated. Then a 13 Mauritian 15 cmtri ple-lumen central high flow venous [...] vein IMPRESSION: Successful placement of a 13 Mauritian, 15 cm triple-lumen hi flow central venous catheter by a right internal jugular approach under sonographic and fluoroscopic guidance. Signed by: Dr. Edith Briceño M.D. on 05/28/2019 6:20 PM Dictated By: EDITH Craven 19 Transcribed By: ALEXIA on 05/28/191819 COPY TO: PAPO MARY IR CONSULT 2019-05-28 18:17:00 [place] [address] Patient Name: GABBIE TOBIN MR #: [id number] : 1955 Age/Sex: 63/F Req #: [id number] Adm Physician: KYLEE ACOSTA MD Ordered by: PAPO MARY MD, MD Report #: [id number] Location: ICU Room/Bed: ICU [facility] Procedure: 1945-9230 DX/IR CONSULT Exam Date: Exam Time: REPORT STATUS: Signed Date and Time: 05/28/2019 Procedure: Right internal jugular temporary hemodialysis catheter placemen t transmissions systems operator: Dr. Briceño Pre-operative diagnosis: End-stage re [...] loss: Minimal Specimens: None Impl ants: 13 Mauritian 15 cm triple-lumen hi flow central venous [...] the tract was dilated. Then a 13 Mauritian 15 cmtriple-lumen central hi gh flow venous [...] vein IMPRESSION: Successful placement of a 13 Mauritian, 15 cm triple -lumen hi flow central venous catheter by a right internal jugular approach un kalia sonographic and fluoroscopic guidance. Signed by: Dr. Edith Briceño M.D. on 05/28/2019 6:20 PM Dictated By: EDITH BRICEÑO MD Electronically Si gned By: EDITH BRICEÑO MD on 05/28/191819 Transcribed By: ALEXIA on 05/28/191819 COPY TO: PAPO MARY GUIDANCE FOR VASCULAR ACCES 2019-05-28 18:17:00 [facility] [address] [address] Patient Name: GABBIE TOBIN MR #: [id number] : 1955 Age/Sex: 63/F Req #: [id number] Adm Physician: KYLEE ACOSTA MD Ordered by: USMAN MARIE, PAPO MARIE Report #: [id number] Location: ICU Room/Bed: ICU [facility] Procedure: 0546-0905 US/US GUIDANCE FOR VASCULAR ACCES Exam Date: Exam Time: REPORT STATUS: Signed Mukul e and Time: 05/28/2019 Procedure: Right internal jugular temporary hemodialys is catheter placement transmissions systems operator: Dr. Briceño Pre-operative shyam gnosis: End-stage [...] loss: Minimal Sp ecimens: None Implants: 13 Mauritian 15 cm triple-lumen hi flow central venous [...] the tract was dilated. Then a 13 Mauritian 15 cmtri ple-lumen central high flow venous [...] vein IMPRESSION: Successful placement of a 13 Mauritian, 15 cm triple-lumen hi flow central venous catheter by a right internal jugular approach under sonographic and fluoroscopic guidance. Signed by: Dr. Edith Briceño M.D. on 05/28/2019 6:20 PM Dictated By: EDITH Craven 19 Transcribed By: ALEXIA on 05/28/191819 COPY TO: PAPO MARY [facility] SINGLE (PORTABLE)2019-05-26 18:53:00 [place] [address] Patient Name: GABBIE TOBIN MR #: [id number] : 1955 Age/Sex: 63/F Req #: [id number] Adm Physician: KYLEE ACOSTA MD Ordered by: PAPO MARY MD, MD Report #: [id number] Location: ICU Room/Bed: ICU 1931 Procedure: [id number] DX/CHEST SINGLE (PORTABLE) Exam Date: 05/26/19 Exam [...] 05/26/191854 COPY TO: PAPO MARY Creatine Kinase TA4826-65-90 16:32:00* Test Item Value Reference Range Interpretation Comments Creatine Kinase MB (test code = 82886-9) 1.30 0-5.0 [facility] [place] [facility] HospitalTroponin O1704-04-45 16:32:00* Test Item Value Reference Range Interpretation Comments Troponin I (test code = GLU7215) 0.239 0-0.300 [facility] [place] [facility] HospitalCreatine Wxypzb6123-92-73 16:16:00* Test Item Value Reference Range Interpretation Comments Creatine Kinase (test code = 2157-6) 11 29-168 L [facility] [place] [facility] HospitalClostridium Difficile Toxin A & B 2019-05-26 15:12:00* Test Item Value Reference Range Interpretation Comments Clostridium Difficile Toxin A & B (test code = 071067096) NEGATIVE NEGATIVE Testing on stool aspirate specimens is outside medical administrative specialist claims since specime n type not validated on this assay.[facility] [place] [facility] HospitalCT ABDOMEN/PELVIS EV7159-20-07 15:21:00 [facility] [address] [address] Patient Name: GABBIE TOBIN MR #: [id number] : 1955 Age/Sex: 63/F Req #: [id number] Adm Physician: KYLEE ACOSTA MD Ordered by: MARY ELLEN ALCARAZ MD Report #: [id number] Location: ICU Room/Bed: ICU [facility] Procedure: 5236-8927 C T/CT ABDOMEN/PELVIS WO Exam Date: 05/25/19 [...] in the abdomen or pelvis. Signed by: Patrciia Subramanian MD on 05/25/2019 3:28 PM Dictated By: PATRICIA SUBRAMANIAN MD 27 Transcribed By: ALEXIA on 05/25/191527 COVER CREASER Y TO: MARY ELLEN ALCARAZ MD Clostridium difficile A and B toxin assay 2019-05-25 11:00:00* Test Item Value Reference Range Interpretation Comments Clostridium Difficile Toxin A & B (test code = 900811030) NEGATIVE NEGATIVE Testing on stool aspirate specimens is outside medical administrative specialist claims since specime n type not validated on this assay.[facility] [place] [facility] HospitalLactic Acid Lhsdu0001-70-91 09:49:00* Test Item Value Reference Range Interpretation Comments Lactic Acid Level (test code = Lactic Acid Level) 1.6 0.5- 2.0 [facility] [place] [facility] HospitalFluoroscopic procedure less than one hour gdycyxyv2288-42-87 08:15:00* Test Item Value Reference Range Interpretation Comments Lactic Acid Level (test code = Lactic Acid Level) 1.6 mmol/L 0.5- 2.0 [facility] [place] [facility] HospitalBacterial urine bifcudd0152-52-78 14:06:00* Test Item Value Reference Range Interpretation Comments Urine Culture (test code = 630-4) ENTEROCOCCUS FAECALIS-VRE [facility] [place] [facility] HospitalCHEST SINGLE (PORTABLE)2019-05-23 14:47:00 [place] [address] Patient Name: GABBIE TOBIN MR #: [id number] : 1955 Age/Sex: 63/F Req #: [id number] Adm Physician: KYLEE ACOSTA MD Ordered by: KYLEE ACOSTA MD Report #: [id number] Location: MED/SURG Room/Bed: 112-1 Procedure: 2988-6393 D X/CHEST SINGLE (PORTABLE) Exam Date: 05/23/19 [...] 05/23/2019 2:48 PM Dictated By: YAYO Craven 47 Transcribed B y: ALEXIA on 05/23/191447 COPY TO: KYLEE ACOSTA MD MOD SEDATE ADD 15 MIN>8CSQ5132-37-80 11:39:00 [place] [address] Patient Name: GABBIE TOBIN MR #: [id number] : 1955 Age/Sex: 63/F Req #: [id number] Adm Physician: KYLEE ACOSTA MD Ordered by: YAYO MATUTE MD Report #: [id number] Location: ICU Room/Bed: ICU 193-1 Procedure: 0302-00 [...] stable. Physician intra-service time was 15 minutes. Aerial Erector: Giovani. Student Services Vice President: None. Approach: Left internal jugular vein Estimated [...] by blunt dissection. A 23 cm 14.5 Mauritian cuffed dialysis catheter was brought through the [...] MATUTE MD 23 Transcribed By: ALEXIA on 05/25/19 112 COPY TO: YAYO MATUTE MD MOD SEDATE ADD 15 MIN >8LVA3350-46-21 11:39:00 [place] [address] Patient Name: GABBIE TOBIN MR #: [id number] : 1955 Age/Sex: 63/F Req #: [id number] Adm Physician: KYLEE ACOSTA MD Ordered by: YAYO MATUTE MD Report #: [id number] Location: ICU Room/Bed: ICU [facility] Procedure: 43 DX/MOD SEDATE ADD 15 MIN>5YRS Exam Date: 05/23/19 Exam Time: 1046 REPORT STATUS: Signed Conversion of a nontunneled to tunneled dialysis catheter, 05/23/2019. History: Renal failure. Modality: Fluoroscopy. Sedation: Versed 1.0 mg and fentanyl 50 mcg was given intravenously for conscious sedation. Vital signs were monitored throughout the procedure by a nurse, and remained stable. Physician intra-service time was 15 minutes. Aerial Erector: Giovani. Student Services Vice President: None. Approach: Left internal jugular vein Estimated [...] by blunt dissection. A 23 cm 14.5 Mauritian cuffed dialysis catheter was brought through the [...] YAYO MATUTE MD MOD SEDATE INITIAL >5 ODL7259-99-19 11:39:00 [place] [id number] Patient Name: GABBIE TOBIN MR #: [id number] : 1955 Age/Sex: 63/F Req #: [id number] [facility] Physician: KYLEE ACOSTA MD Ordered by: YAYO MATUTE MD Report #: [id number] Location: ICU Room/Bed: ICU 193-1 Procedure: 42 DX/MOD SEDATE INITIAL >5 YRS Exam Date: 05/23/19 Exam Time: 1030 REPORT STATUS: Signed Conversion of a nontunneled to tunneled dialysis catheter, 05/23/2019. History: Renal failure. Modality: Fluoroscopy. Sedation: Versed 1.0 mg and fentanyl 50 mcg was given intravenously for conscious sedation. Vital signs were monitored throughout the procedure by a nurse, and remained stable. Physician intra-service time was 15 minutes. Aerial Erector: Giovani. Student Services Vice President: None. Approach: Left internal jugular vein Estimated [...] by blunt dissection. A 23 cm 14.5 Mauritian cuffed dialysis catheter was brought through the [...] on 05/25/191123 COPY TO: YAYO MATUTE MD C[facility] PLMT OR XHX4315-27-72 11:39:00 [place] [address] Patient Name: GABBIE TOBIN MR #: [id number] : 1955 Age/Sex: 63/F Req #: [id number] [facility] Physician: KYLEE ACOSTA MD Ordered by: YOVANI SANDRA MD Report #: [id number] Location: ICU Room/Bed: ICU [facility] Procedure: 4821-9012 IR/ FLURO TROY CENT JASSON PLMT OR [...] Physician intra-service time was 15 mi nutes. Aerial Erector: Giovani. Student Services Vice President: None. Approach: Left internal jug ular vein [...] by blunt dissection. A 23 cm 14.5 Mauritian cuffed dialysis catheter was brought through the [...] 05/25/191123 COPY TO: YOVANI SANDRA MD IR NQMOGSN7253-08-23 11:39:00 [facility] [address] [address] Patient Name: GABBIE TOBIN MR #: [id number] : 1955 Age/Sex: 63/F Req #: [id number] Adm Physician: KYLEE ACOSTA MD Ordered by: YOVANI SANDRA MD Report #: [id number] Location: ICU Room/Bed: ICU [facility] Procedure: 0972-7827 DX/ IR CONSULT Exam Date: Exam Time: REPORT STATUS: Signed Conversion of a nontunneled to tunneled dialysis catheter, 05/23/2019. History: Renal failure. Modality: Fluoroscopy. Sedation: Ve rsed 1.0 mg and fentanyl 50 mcg was given intravenously for conscious sedation . Vital signs were monitored throughout the procedure by a nurse, and remaine d stable. Physician intra-service time was 15 minutes. Jordan thomas [employer] Engineer: Giovani. Student Services Vice President: None. Approach: Left internal jugular vein Estimated [...] by blunt dissection. A 23 cm 14.5 Mauritian cuffed dialysis catheter was brought through the [...] YOVANI SANDRA MD TUNNELLED CVC INSERT W/O FBSH3401-32-35 11:39:00 [place] [address] Patient Name: GABBIE TOBIN MR #: [id number] : 1955 Age/Sex: 63/F Req #: [id number] Adm Physician: KYLEE ACOSTA MD Ordered by: YOVANI SANDRA MD Report #: [id number] Location: ICU Room/Bed: ICU [facility] Procedure: 0858-0886 IR/ TUNNELLED CVC INSERT W/O PORT Exam Date: Exam Time: REPORT STATUS: Signed Conversi on of a nontunneled to tunneled dialysis catheter, 05/23/2019. History: Renal failure. Modality: Fluoroscopy. Sedation: Versed 1.0 mg and fentanyl 50 mcg was given intravenously for conscious sedation. Vital signs were monitored throughout the procedure by a nurse, and remained stable. Physician intra-service time was 15 minutes. Aerial Erector: Giovani. Student Services Vice President: None. Approach: Left internal jugular vein Estimated [...] by blunt dissection. A 23 cm 14.5 Mauritian cuffed dialysis catheter was brought through the [...] throughout the procedure by a nurse, laisha craven remained stable. The patient tolerated the procedure well and [facility]. Results: Spot [...] 05/25/191123 COPY TO: YOVANI SANDRA MD Blood Rrzwigv7646-98-83 05:06:00* Test Item Value Reference Range Interpretation Comments Blood Culture (test code = 81690344) NO GROWTH AFTER 5 DAYS, FINAL REPORT [facility] HospitalReactive Xmxbqtzjspg2832-80-37 10:14:00* Test Item Value Reference Range Interpretation Comments Reactive Lymphocytes (test code = 57581-3) 2 [facility] [place] [facility] HospitalBlood lymphocytes variant count (number/volume)2019-05-19 05:35:00* Test Item Value Reference Range Interpretation Comments Reactive Lymphocytes (test code = 60621-7) 2 [facility] [place] [facility] HospitalHepatitis Be Zkuyrxkk5517-83-56 14:54:00 * Test Item Value Reference Range Interpretation Comments Hepatitis Be Antibody (test code = 00972-8) Negative Negative Performed at: [facility] [id number] Quality Head: Zee Kenny MD, Phone: [phone] [place] Spine & Surgical HospitalCHEST SINGLE (PORTABLE)2019-05-18 06:17:00 [place] [address] Patient Name: GABBIE TOBIN MR #: [id number] : 1955 Age/Sex: 63/F Req #: [id number] Adm Physician: PINA RUCKER MD Ordered by: BHAVESH ABBASI MD Report #: [id number] Location: ICU Room/Bed: ICU 190 Procedure: 4125-3237 DX/CHEST SINGLE (PORTABLE) Exam Date: 05/18/19 Exam Time: 05 REPORT STATUS: Signed Examination: Single AP view [...] TO: BHAVESH ABBASI Hepatitis B Core Total Ndwmtdlh2528-69-05 11:32:00* Test Item Value Reference Range Interpretation Comments Hepatitis B Core Total Antibody (test code = 86511-1) Negative Negative [facility] B Surface Xqezdwu2557-89-71 11:32:00* Test Item Value Reference Range Interpretation Comments Hepatitis B Surface Antigen (test code = 5196-1) Negative Negat ana lilia [facility] B Core IgM Scxrjgyt2029-84-44 11:32:00* Test Item Value Reference Range Interpretation Comments Hepatitis B Core IgM Antibody (test code = 11397-0) Negative Ne gative Performed at: - [facility] [id number] Director: Pedro Smith MD, Phone: [phone] SINGLE ([facility])2019-05-17 05:48:00 [facility] [address] [address] Patient Name: GABBIE TOBIN MR #: [id number] : 1955 Age/Sex: 63/F Req #: [id number] Adm Physician: PINA RUCKER MD Ordered by: BHAVESH ABBASI MD Report #: [id number] Location: ICU Room/Bed: ICU [facility] Procedure: 0194-0487 DX/CHEST SINGLE (PORTABLE) Exam Date: Exam Time: [...] 5:50 AM Dictated By: EDITH BRICEÑO MD 0550 Transcribed By: ALEXIA on 05/17/19 0550 COPY TO: BHAVESH ABBASI MD Qualitative serum or plasma hepatitis B virus e antibody by enzyme ovzvkpthiqf0600-04-07 16:05:00* Test Item Value Reference Range Interpretation Comments Hepatitis Be Antibody (test code = 21984-0) Negative Negative Performed at: [address] [id number] Quality Head: Zee Kenny MD, Phone: [phone] Hospital at Renaissanceerum or plasma hepatitis B virus core antibody detection by gcvxnyndmeh6848-44-80 16:05:00* Test Item Value Reference Range Interpretation Comments Hepatitis B Core Total Antibody (test code = 27020-2) Negative Negative [facility] Renaissanceerum or plasma hepatitis B virus surface antigen detection by hiujgffpwpb3615-91-35 16:05:00* Test Item Value Reference Range Interpretation Comments Hepatitis B Surface Antigen (test code = 5196-1) Negative Negat ana lilia [facility] Renaissanceerum or plasma hepatitis B virus core IgM antibody detection by ddkmfkgqqbm2454-19-73 16:05:00* Test Item Value Reference Range Interpretation Comments Hepatitis B Core IgM Antibody (test code = 61176-0) Negative Ne gative Performed at: [employer] - [facility] [id number] Director: Pedro Smith MD, Phone: [phone] [place] Spine & Surgical HospitalIR OTOZMIA6690-29-97 15:36:00 [place] [address] Patient Name: GABBIE TOBIN MR #: [id number] : 1955 Age/Sex: 63/F Req #: [id number] Adm Physician: PINA RUCKER MD Ordered by: YOVANI SANDRA MD Report #: [id number] Location: ICU Room/Bed: [place] [address] Procedure: 6602-1660 D X/IR CONSULT Exam Date: Exam Time: [...] TO: YOVANI SANDRA MD NON-TUNNELLED CVC CATH MEANKEZ9856-07-69 15:36:00 [place] [address] Patient Name: GABBIE TOBIN MR #: [id number] : [birth year] Age/Sex: 63/F Req #: [id number] Adm Physician: PINA RUCKER MD Ordered by: YOVANI SANDRA MD Report #: [id number] Location: ICU Room/Bed: ICU [facility] Procedure: 7229-5745 I R/NON-TUNNELLED CVC CATH PLACMNT Exam Date: Exam Ti me: REPORT STATUS: Signed PROCE DURE: Non-tunneled central venous catheter placement Procedural Personnel Attending physician(s): Patricia Subramanian MD Fellow physician(s): None Resident p mariocian(s): None Advanced practice provider(s): None Pre-procedure diagn [...] applied. Catheter placed: Bard Trialysis Catheter size (Mauritian): 13 Catheter length (cm): 20 Catheter flush: [...] on 04/24 COPY TO: YOVANI SANDRA MD GUIDANCE FOR PROCEDURE 2019-05-16 15:36:[address], [place], [place] [address] Patient Name: GABBIE TOBIN MR #: [id number] : 1955 Age/Sex: 63/F Req #: [id number] [facility] Physician: PINA RUCKER MD Ordered by: YOVANI SANDRA MD Report #: [id number] Location: ICU Room/Bed: [place] [address] Procedure: [id number] U S/US GUIDANCE FOR PROCEDURE Exam Date: [...] Catheter placed: Bard Tr ialysis Catheter size (Mauritian): 13 Catheter length (cm): 20 Catheter flush [...] on 05/16/19 153 Transcribed By: ALEXIA on 05/16/19 1538 COPY TO: YOVANI SANDRA MD CHEST SINGLE (PORTABLE) 2019-05-16 15:16:00 [place] [address] Patient Name: GABBIE TOBIN MR #: [id number] : 1955 Age/Sex: 63/F Req #: [id number] Adm Physician: PINA RUCKER MD Ordered by: PATRICIA SUBRAMANIAN MD Report #: [id number] Location: ICU Room/Bed: ICU [facility] Procedure: 2150-4676 D X/CHEST SINGLE (PORTABLE) Exam Date: 05/16/19 Exam T ervin: 1455 REPORT STATUS: Signed EXAMINATION: CHEST SINGLE (PORTABLE) [...] COPY TO: PATRICIA SUBRAMANIAN MD Arterial Blood pH7540-52-49 14:09:00* Test Item Value Reference Range Interpretation Comments Arterial Blood pH (test code = 2744-1) 7.37 7.31-7.41 [facility] [place] [facility] HospitalArterial Blood Partial Pressure CO2 2019-05-16 14:09:00* Test Item Value Reference Range Interpretation Comments Arterial Blood Partial Pressure CO2 (test code = 2018-10) 40 41-51 L [facility] [place] [facility] HospitalArterial Blood Partial Pressure O2 2019-05-16 14:09:00* Test Item Value Reference Range Interpretation Comments Arterial Blood Partial Pressure O2 (test code = 2018-10) 94 80-105 [facility] [place] [facility] HospitalArterial Blood MIX57101-65-23 14:09:00* Test Item Value Reference Range Interpretation Comments Arterial Blood HCO3 (test code = 1960-4) 23 [facility] HospitalAr[facility] Blood Base Cgavmq1786-05-86 14:09:00* Test Item Value Reference Range Interpretation Comments Arterial Blood Base Excess (test code = 1925-7) -2.0 -2-3 [facility] HospitalAr[facility] Blood Oxygen Saturation 2019-05-16 14:09:00* Test Item Value Reference Range Interpretation Comments Arterial Blood Oxygen Saturation (test code = 2708-6) 97.0 95-98 [facility] HospitalFiO22020-02-24 14:09:00* Test Item Value Reference Range Interpretation Comments FiO2 (test code = FiO2) 60 BIPAP 16/8 RR 16DREW FROM RIGHT BRACHIALSouth [facility] Arterial blood pH kqoyaencnxi6905-45-19 13:00:00* Test Item Value Reference Range Interpretation Comments Arterial Blood pH (test code = 2744-1) 7.37 7.31-7.41 [facility] HospitalpCO2 DsqI8533-71-39 13:00:00* Test Item Value Reference Range Interpretation Comments Arterial Blood Partial Pressure CO2 (test code = 2018-10) 40 mm[Hg] 41-51 [facility] HospitalpCO2 EqlC1854-21-29 13:00:00* Test Item Value Reference Range Interpretation Comments Arterial Blood Partial Pressure O2 (test code = 2018-10) 94 mm[Hg] 80-105 [facility] HospitalArterial blood bicarbonate measurement (moles/volume)2019-05-16 13:00:00* Test Item Value Reference Range Interpretation Comments Arterial Blood HCO3 (test code = 1960-4) 23 mmol/L [facility] HospitalArterial blood base excess by calculation 2019-05-16 13:00:00* Test Item Value Reference Range Interpretation Comments Arterial Blood Base Excess (test code = 1925-7) -2.0 mmol/L -2-3 [facility] HospitalArterial blood oxygen saturation vypgziottgl1451-01-66 13:00:00* Test Item Value Reference Range Interpretation Comments Arterial Blood Oxygen Saturation (test code = 2708-6) 97.0 % 95-98 [facility] DistrictFluoroscopic procedure less than one hour caemivfv2897-90-12 13:00:00* Test Item Value Reference Range Interpretation Comments FiO2 (test code = FiO2) 60 % BIPAP 16/8 RR 16DREW FROM RIGHT [facility]IALCH[facility] CHEST SINGLE (PORTABLE)2019-05-16 06:58:00 [facility] [address] [address] Patient Name: GABBIE TOBIN MR #: [id number] : 1955 Age/Sex: 63/F Req #: [id number] Adm Physician: PINA RUCKER MD Ordered by: BHAVESH ABBASI MD Report #: [id number] Location: ICU Room/Bed: [place] [address] Procedure: [id number] DX/CHEST SINGLE (PORTABLE) Exam Date: 05/16/19 Exam [...] on 05/16/19699 Transcribed By: Bhargav CLARKE on 05/16/19699 COPY TO: BHAVESH ABBASI MD Venous Blood pH 2019-05-15 10:12:00* Test Item Value Reference Range Interpretation Comments Venous Blood pH (test code = Venous Blood pH) 7.413 7.35-7.3 8 H [facility] HospitalVenous Blood Partial Pressure CO2 2019-05-15 10:12:00* Test Item Value Reference Range Interpretation Comments Venous Blood Partial Pressure CO2 (test code = Venous Blood Partial Pressure CO2) 36.1 44-48 L [facility] HospitalVenous Blood Partial Pressure O2 2019-05-15 10:12:00* Test Item Value Reference Range Interpretation Comments Venous Blood Partial Pressure O2 (test code = Venous B lood Partial Pressure O2) 48 40-41 H [facility] HospitalVenous Blood [id number] 10:12:00* Test Item Value Reference Range Interpretation Comments Venous Blood HCO3 (test code = Venous Blood HCO3) 23.0 21-2 2 H [facility] HospitalVenous Blood Total Carbon Dioxide 2019-05-15 10:12:00* Test Item Value Reference Range Interpretation Comments Venous Blood Total Carbon Dioxide (test code = Venous Blood Total Carbon Dioxide) 24 [facility] HospitalVenous Blood Base Scyyxb1431-49-77 10:12:00* Test Item Value Reference Range Interpretation Comments Venous Blood Base Excess (test code = Venous Blood Base Excess) -2 [facility] HospitalVenous Blood Oxygen Osycaqguih1325-24-01 10:12:00* Test Item Value Reference Range Interpretation Comments Venous Blood Oxygen Saturation (test code = Venous Blood Oxy gen Saturation) 84 [facility] HospitalFluoroscopic procedure less than one hour zbsdpomq4842-38-26 07:04:00* Test Item Value Reference Range Interpretation Comments Venous Blood pH (test code = Venous Blood pH) 7.413 7.35-7.3 8 [facility] HospitalFluoroscopic procedure less than one hour buwwxpej8457-92-97 07:04:00* Test Item Value Reference Range Interpretation Comments Venous Blood Partial Pressure CO2 (test code = Venous Blood Partial Pressure CO2) 36.1 44-48 [facility] HospitalFluoroscopic procedure less than one hour uqcfewro9319-42-49 07:04:00* Test Item Value Reference Range Interpretation Comments Venous Blood Partial Pressure O2 (test code = Venous B lood Partial Pressure O2) 48 40-41 [facility] HospitalFluoroscopic procedure less than one hour asqndcgm1013-60-84 07:04:00* Test Item Value Reference Range Interpretation Comments Venous Blood HCO3 (test code = Venous Blood HCO3) 23.0 21-2 2 [facility] HospitalFluoroscopic procedure less than one hour mvxxputx5160-16-58 07:04:00* Test Item Value Reference Range Interpretation Comments Venous Blood Total Carbon Dioxide (test code = Venous Blood Total Carbon Dioxide) 24 [facility] HospitalFluoroscopic procedure less than one hour jxcmiqzv3532-45-99 07:04:00* Test Item Value Reference Range Interpretation Comments Venous Blood Base Excess (test code = Venous Blood Base Excess) -2 [facility] HospitalFluoroscopic procedure less than one hour kgqkhjhq6622-42-47 07:04:00* Test Item Value Reference Range Interpretation Comments Venous Blood Oxygen Saturation (test code = Venous Blood Oxy gen Saturation) 84 [facility] HospitalCHEST SINGLE (PORTABLE)2019-05-15 06:19:00 [place] [address] Patient Name: GABBIE TOBIN MR #: [id number] : 1955 Age/Sex: 63/F Req #: [id number] Adm Physician: PINA RUCKER MD Ordered by: BHAVESH ABBASI MD Report #: [id number] Location: ICU Room/Bed: ICU [facility] Procedure: [id number] DX/CHEST SINGLE (PORTABLE) Exam Date: 05/15/19 Exam [...] 05/15/19620 COPY TO: BHAVESH ABBASI MD Triglycerides Jlacf9586-79-58 05:51:00* Test Item Value Reference Range Interpretation Comments Triglycerides Level (test code = 2571-8) 103 0-149 [facility] HospitalCholesterol Lyqil6162-25-90 05:51:00* Test Item Value Reference Range Interpretation Comments Cholesterol Level (test code = 2093-3) 134 0-199 Less than 200 mg/dL Low Pilk676 - 239 mg/dL Borderline Vdtj173 m g/dl and greater High Risk [facility] HospitalLDL Qairnqswczg4653-04-79 05:51:00* Test Item Value Reference Range Interpretation Comments LDL Cholesterol (test code = 2089-1) 82 60-130 [facility] HospitalHDL Klggscwlqhm2758-42-16 05:51:00* Test Item Value Reference Range Interpretation Comments HDL Cholesterol (test code = 2085-9) 31 40-60 L [facility] HospitalCholesterol/HDL Rghbl8087-39-36 05:51:00 * Test Item Value Reference Range Interpretation Comments Cholesterol/HDL Ratio (test code = 9830-1) 4.3 3.0-3.6 [facility] plasma triglyceride measurement (mass/volume)2019-05-15 03:20:00* Test Item Value Reference Range Interpretation Comments Triglycerides Level (test code = 2571-8) 103 mg/dL 0-149 [facility]er[facility] plasma cholesterol measurement (mass/volume)2019-05-15 03:20:00* Test Item Value Reference Range Interpretation Comments Cholesterol Level (test code = 2093-3) 134 mg/dL 0-199 Less than 200 mg/dL Low Ksru687 - 239 mg/dL Borderline Ttcj559 m g/dl and greater High Risk [facility] plasma cholesterol in LDL measurement (mass/volume) 2019-05-15 03:20:00* Test Item Value Reference Range Interpretation Comments LDL Cholesterol (test code = 2089-1) 82 mg/dL 60-130 [facility]erum or plasma cholesterol in HDL measurement (mass/volume)2019-05-15 03:20:00* Test Item Value Reference Range Interpretation Comments HDL Cholesterol (test code = 2085-9) 31 mg/dL 40-60 [facility] Renaissanceerum or plasma total cholesterol/cholesterol in HDL mass cgfyj8448-22-31 03:20:00* Test Item Value Reference Range Interpretation Comments Cholesterol/HDL Ratio (test code = 9830-1) 4.3 3.0-3.6 [facility] HospitalBlood anwsfgm6578-79-62 00:29:00* Test Item Value Reference Range Interpretation Comments Blood Culture (test code = 38220044) NO GROWTH AFTER 5 DAYS, FINAL REPORT [facility] HospitalFree Thyroxine Zvfsb8951-67-72 15:17:00* Test Item Value Reference Range Interpretation Comments Free Thyroxine Index (test code = 18984-2) 2.0190 1.4-3.8 [facility] HospitalThyroxine (T4)2019-05-14 15:17:00* Test Item Value Reference Range Interpretation Comments Thyroxine (T4) (test code = 3026-2) 5.01 4.5-10.9 Our current method for Total T4 is not recommended for use as the only marker fo r evaluating patients for thyroid disorders.[facility] HospitalTriiodothyronine (T3) Ybdvvw1270-19-09 15:17:00* Test Item Value Reference Range Interpretation Comments Triiodothyronine (T3) Uptake (test code = 3050-2) 40.30 22.5 -37.0 H [facility] HospitalThyroid Stimulating Hormone (TSH) 2019-05-14 15:17:00* Test Item Value Reference Range Interpretation Comments Thyroid Stimulating Hormone (TSH) (test code = 42845-1) 0.409 0.350-4.940 [facility] HospitalFree thyroxine liivq5607-95-64 13:12:00* Test Item Value Reference Range Interpretation Comments Free Thyroxine Index (test code = 10148-2) 2.0190 1.4-3.8 [facility] or plasma thyroxine (T4) measurement (mass/volume)2019-05-14 13:12:00* Test Item Value Reference Range Interpretation Comments Thyroxine (T4) (test code = 3026-2) 5.01 ug/dL 4.5-10.9 Our current method for Total T4 is not recommended for use as the only marker fo r evaluating patients for thyroid disorders.[facility] Renaissanceerum or plasma triiodothyronine resin uptake (T3RU)2019-05-14 13:12:00* Test Item Value Reference Range Interpretation Comments Triiodothyronine (T3) Uptake (test code = 3050-2) 40.30 % 22.5 -37.0 [facility] or plasma thyrotropin measurement by detection limit <= 0.005 miu/l (units/volume)2019-05-14 13:12:00* Test Item Value Reference Range Interpretation Comments Thyroid Stimulating Hormone (TSH) (test code = 33334-3) 0.409 0.350-4.940 [facility] [place] [facility] HospitalCHEST SINGLE (PORTABLE)2019-05-14 06:11:00 [facility] [address] [address] Patient Name: GABBIE TOBIN MR #: [id number] : 1955 Age/Sex: 63/F Req #: [id number] Adm Physician: PINA RUCKER MD Ordered by: ERIK FORD MD Report #: [id number] Location: ICU Room/Bed: ICU [facility] Procedure: [id number] DX/CHEST SINGLE (PORTABLE) Exam Date: 05/14/19 Exam Time: 519 REPORT STATUS: Signed EXAMINATION: CHEST SINGLE (PORTABLE) [...] COPY TO: ERIK PARRA MD B-Type Natriuretic Mmaomgr2409-86-90 05:54:00* Test Item Value Reference Range Interpretation Comments B-Type Natriuretic Peptide (test code = 52681-5) 1680.0 0-100 H [facility] HospitalBNP Emb-eLmu2321-13-22 03:32:00* Test Item Value Reference Range Interpretation Comments B-Type Natriuretic Peptide (test code = 25348-9) 1680.0 pg/mL 0-100 [facility] HospitalUrine ISB8801-72-49 00:56:00* Test Item Value Reference Range Interpretation Comments Urine WBC (test code = 5821-4) 11-20 0-5 H [facility] HospitalUrine OKQ6948-17-45 00:56:00* Test Item Value Reference Range Interpretation Comments Urine RBC (test code = 92788-4) 21-50 0-5 H [facility] HospitalUrine Egpqkbkp7523-60-55 00:56:00* Test Item Value Reference Range Interpretation Comments Urine Bacteria (test code = 76273-7) MANY NONE H [facility] HospitalUrine Epithelial Nekgo3910-94-74 00:56:00 * Test Item Value Reference Range Interpretation Comments Urine Epithelial Cells (test code = 51382-8) FEW NONE [facility] HospitalUrine Amorphous Kebabgjf6241-83-37 00:56:00* Test Item Value Reference Range Interpretation Comments Urine Amorphous Sediment (test code = 8246-1) MANY FEW H [facility] HospitalUrine Fine Granular Kqpqe6068-46-82 00:56:00* Test Item Value Reference Range Interpretation Comments Urine Fine Granular Casts (test code = 25753-6) 1-5 >0 H [facility] HospitalUrine Coarse Granular Yozdh0194-64-98 00:56:00* Test Item Value Reference Range Interpretation Comments Urine Coarse Granular Casts (test code = 69194-8) 1-5 >0 H [facility] HospitalUrine Ijbqc9427-08-73 00:39:00* Test Item Value Reference Range Interpretation Comments Urine Color (test code = 5778-6) CONNER YELLOW H [facility] HospitalUrine Dkkslaf5360-65-33 00:39:00* Test Item Value Reference Range Interpretation Comments Urine Clarity (test code = 69817-0) CLOUDY CLEAR H [facility] HospitalUrine Specific Ppkbati4182-12-69 00:39:00 * Test Item Value Reference Range Interpretation Comments Urine Specific [place] (test code = 5811-5) 1.020 1.010-1.02 5 [facility] HospitalUrine dP7986-49-52 00:39:00* Test Item Value Reference Range Interpretation Comments Urine pH (test code = 73965-0) 6.5 5-7 [facility] HospitalUrine Leukocyte Niafsops1798-11-90 00:39:00* Test Item Value Reference Range Interpretation Comments Urine Leukocyte Esterase (test code = 5799-2) NEGATIVE NEGATIVE [facility] HospitalUrine Gotcshz8591-82-80 00:39:00* Test Item Value Reference Range Interpretation Comments Urine Nitrite (test code = 63014-2) NEGATIVE NEGATIVE [facility] HospitalUrine Zxleruf0691-90-92 00:39:00* Test Item Value Reference Range Interpretation Comments Urine Protein (test code = 5804-0) 3+ NEGATIVE H [facility] HospitalUrine Glucose (UA)2019-05-14 00:39:00* Test Item Value Reference Range Interpretation Comments Urine Glucose (UA) (test code = 2349-9) 2+ NEGATIVE H [facility] HospitalUrine Awrzapz8854-55-05 00:39:00* Test Item Value Reference Range Interpretation Comments Urine Ketones (test code = 44317-2) NEGATIVE NEGATIVE [facility] HospitalUrine Kvhqgavlughb3933-39-70 00:39:00* Test Item Value Reference Range Interpretation Comments Urine Urobilinogen (test code = 84474-9) 0.2 0.2-1 [facility] HospitalUrine Ivjwfcgey0601-10-61 00:39:00* Test Item Value Reference Range Interpretation Comments Urine Bilirubin (test code = 1978-6) 1+ NEGATIVE H [facility] HospitalUrine Wofph8606-28-39 00:39:00* Test Item Value Reference Range Interpretation Comments Urine Blood (test code = 70315-3) 3+ NEGATIVE H [facility] HospitalUrine color llelvmrvupaqp7136-29-72 23:20:00* Test Item Value Reference Range Interpretation Comments Urine Color (test code = 5778-6) CONNER YELLOW [facility] HospitalUrine mtsvudk7949-86-78 23:20:00* Test Item Value Reference Range Interpretation Comments Urine Clarity (test code = 03070-2) CLOUDY CLEAR [facility] gravity of Urine by Test strip 2019-05-13 23:20:00* Test Item Value Reference Range Interpretation Comments Urine Specific [place] (test code = 5811-5) 1.020 1.010-1.02 5 [facility] HospitalUrine pH measurement by automated test nrnqt3454-74-97 23:20:00* Test Item Value Reference Range Interpretation Comments Urine pH (test code = 13331-2) 6.5 5-7 [facility] HospitalUrine leukocyte esterase detection by mmprpqfk7921-36-56 23:20:00* Test Item Value Reference Range Interpretation Comments Urine Leukocyte Esterase (test code = 5799-2) NEGATIVE NEGATIVE [facility] HospitalUrine nitrite rizdxfzgb8000-18-02 23:20:00* Test Item Value Reference Range Interpretation Comments Urine Nitrite (test code = 20405-3) NEGATIVE NEGATIVE [facility] HospitalUrine protein measurement by test strip (mass/volume)2019-05-13 23:20:00* Test Item Value Reference Range Interpretation Comments Urine Protein (test code = 5804-0) 3+ NEGATIVE [facility] HospitalUrine glucose vbdektzti1934-50-75 23:20:00* Test Item Value Reference Range Interpretation Comments Urine Glucose (UA) (test code = 2349-9) 2+ NEGATIVE [facility] HospitalUrine ketones detection by automated test uttix1112-06-53 23:20:00* Test Item Value Reference Range Interpretation Comments Urine Ketones (test code = 32414-7) NEGATIVE NEGATIVE [facility] HospitalUrine urobilinogen measurement by test strip (mass/volume)2019-05-13 23:20:00* Test Item Value Reference Range Interpretation Comments Urine Urobilinogen (test code = 29870-8) 0.2 mg/dL 0.2-1 [facility] HospitalUrine total bilirubin measurement (mass/volume)2019-05-13 23:20:00* Test Item Value Reference Range Interpretation Comments Urine Bilirubin (test code = 1978-6) 1+ NEGATIVE [facility] HospitalUrine erythrocytes hspjzbzke1843-78-82 23:20:00* Test Item Value Reference Range Interpretation Comments Urine Blood (test code = 54648-7) 3+ NEGATIVE [facility] HospitalAutomated urine sediment leukocyte count by microscopy (number/high power field)2019-05-13 23:20:00* Test Item Value Reference Range Interpretation Comments Urine WBC (test code = 5821-4) 11-20 /[HPF] 0-5 [facility] HospitalErythrocytes detection in urine sediment by light lhbptfuueq1619-16-27 23:20:00* Test Item Value Reference Range Interpretation Comments Urine RBC (test code = 23814-5) 21-50 /[HPF] 0-5 [facility] HospitalBacteria detection in urine sediment by light lakvoopaum9929-99-22 23:20:00* Test Item Value Reference Range Interpretation Comments Urine Bacteria (test code = 79308-8) MANY /[HPF] NONE [facility] HospitalEpithelial cells detection in urine sediment by light gbeekvqrqn5910-10-77 23:20:00* Test Item Value Reference Range Interpretation Comments Urine Epithelial Cells (test code = 91376-9) FEW /[LPF] NONE [facility] HospitalAmorphous sediment detection in urine sediment by light purriazdpf4588-91-35 23:20:00* Test Item Value Reference Range Interpretation Comments Urine Amorphous Sediment (test code = 8246-1) MANY FEW [facility] HospitalAutomated fine granular casts count in urine sediment by microscopy low power field (number/area)2019-05-13 23:20:00* Test Item Value Reference Range Interpretation Comments Urine Fine Granular Casts (test code = 38021-7) 1-5 >0 [facility] HospitalCoarse granular casts detection in urine sediment by light tgflbmuxga7957-21-72 23:20:00* Test Item Value Reference Range Interpretation Comments Urine Coarse Granular Casts (test code = 48498-0) 1-5 >0 [facility] HospitalCHEST SINGLE (PORTABLE)2019-05-13 19:50:00 [place] [address] [address] [place] [address] Patient Name: GABBIE TOBIN MR #: [id number] : 1955 Age/Sex: 63/F Req #: [id number] Adm Physician: Ordered by: ERIK FORD MD Report #: [id number] Location: ER Room/Bed: Procedure: [id number] DX/CHEST SINGLE (PORTABLE) Exam Date: Exam T [...] TO: ERIK FORD MD ABDOMEN-1VIEW (KUB)2019-02-11 10:32:00 [place] [address] Patient Name: GABBIE TOBIN MR #: [id number] : 1955 Age/Sex: 63/F Req #: [id number] Adm Physician: Ordered by: AN POWELL MD Report #: [id number] Location: US Room/Bed: Procedure: DX/ ABDOMEN-1VIEW (KUB) Exam Date: Exam Time: [...] radiographically apparent renal calculi. Signed by: Patricia Sburamanian MD on 10:37 AM Dictated By: PATRICIA SUBRAMANIAN MD 1037 Transcribed By: ALEXIA on 02/11/19 1037 CO PY TO: AN POWELL MD RENAL RETROPERITONEAL DHET7242-96-06 10:27:00 [place] [address] Patient Name: GABBIE TOBIN MR #: [id number] : [birth year] Age/Sex: 63/F Req #: [id number] Adm Physician: Ordered by: AN POWELL MD Report #: [id number] Location: US Room/Bed: Procedure: [id number] US/ US RENAL RETROPERITONEAL COMP Exam Date: [...] COPY TO: AN POWELL MD CHEST 2 CYYVB4063-00-96 10:25:00 [place] [address] Patient Name: GABBIE TOBIN MR #: [id number] : 1955 Age/Sex: 63/F Req #: [id number] Adm Physician: Ordered by: AN POWELL MD Report #: [id number] Location: US Room/Bed: Procedure: [id number] DX/ CHEST 2 VIEWS Exam Date: Exam [...] 1026 COPY TO: AN POWELL MD Stool Wklsgwqtyuyi9447-73-21 22:10:00* Test Item Value Reference Range Interpretation Comments Stool Calprotectin (test code = 37020-4) <16 0-120 Concentration Interpretation Follow-Up<16 - 50 ug/g Normal None>50 -120 ug/g Borderline Re-evaluate in 4-6 weeks >120 ug/g Abnormal Repeat as clinically indicatedPerformed at: - [facility] [address] [id number] Director: Zee Kenny MD, Phone: [phone] Lactoferrin (LAB)2019-01-07 11:03:00* Test Item Value Reference Range Interpretation Comments Stool Lactoferrin (LAB) (test code = 28719-1) NEGATIVE NEGATIVE Testing on stool aspirate specimens is outside medical administrative specialist claims since specime n type not validated on this assay.[facility] DistrictCHES 2 KIGVB3035-57-98 11:58:00 [facility] [address] [address] Patient Name: GABBIE TOBIN MR #: [id number] : 1955 Age/Sex: 63/F Req #: [id number] Adm Physician: Ordered by: DALIA BRASWELL MD Report #: [id number] Location: OR Room/Bed: Procedure: [id number] DX/CHEST 2 VIEWS Exam Date: Exam Time: [...] 01/06/19 1200 COPY TO: DALIA BRASWELL MD OCQUOE4797-56-86 15:29:00* Test Item Value Reference Range Interpretation Comments GLUBED (test code = GLUBED) 90 mg/dL 74-106 N Performed by certified straight ruling machine operator at [facility] PROTHROMBIN RVIN7527-91-17 14:47:00* Test Item Value Reference Range Interpretation [...] PATIENT ON ANTICOAGULANTS? YLIST ANTICOAGULANTS COUMADINTHROMBOPLASTIN TIME CHEXPHS8630-78-25 14:47:00* Test Item Value Reference Range Interpretation Comments THROMBOPLASTIN TIME PARTIAL (test code = PTT) 35.6 seconds 25.0-36. 5 N IS PATIENT ON ANTICOAGULANTS? YLIST ANTICOAGULANTS COUMADINCOMPREHENSIVE METABOLIC XPYOV3612-42-32 12:49:00* Test Item Value Reference Range Interpretation [...] due to change in reagent. COMPREHENSIVE METABOLIC GJTTQ0065-30-60 12:41:00* Test Item Value Reference Range Interpretation [...] code = ALKP) IUnit/L 45-117 CBC W/AUTO PPRA2909-41-88 12:34:00* Test Item Value Reference Range Interpretation [...] NRBC#) 0.02 K/mm3 0.0-0.1 N CHEST 2 RQYWT6090-36-70 17:00:00 [place] [address] Patient Name: GABBIE TOBIN MR #: [id number] : 1955 Age/Sex: 62/F Req #: [id number] Adm Physician: Ordered by: PRISCILLA ARRINGTON MD [...] enlarged. BONES AND SOFT TISSUES: No [place] osseous lesion. Soft tissues are unremarkable. UPPER [...] ARRINGTON MD CT ABDOMEN/PELVIS WO 2018-09-20 18:22:00 [place] [address] Patient Name: GABBIE TOBIN MR #: [id number] : 1955 Age/Sex: 62/F Req #: [id number] Adm Physician: Ordered by: AN POWELL MD Report #: [id number] Location: CT Room/Bed: Procedure: [id number] CT/ CT ABDOMEN/PELVIS WO Exam Date: 09/20/18 [...] on 09/20 COPY TO: AN POWELL MD VEBXXS4938-82-66 12:17:00* Test Item Value Reference Range Interpretation Comments GLUBED (test code = GLUBED) 109 mg/dL 74-106 H Performed by certified straight ruling machine operator at [facility] KUTBBQ8223-19-69 09:35:00* Test Item Value Reference Range Interpretation Comments GLUBED (test code = GLUBED) 89 mg/dL 74-106 N Performed by certified straight ruling machine operator at [facility] VOVKDJ7774-38-48 21:45:00* Test Item Value Reference Range Interpretation Comments GLUBED (test code = GLUBED) 134 mg/dL 74-106 H Performed by certified straight ruling machine operator at [facility] (Formerly [facility]) - XR CHEST 1 [id number] 14:42:00 FAX: Sean Guadarrama MD [phone] [place]: St: ADM FAX: Edith Villatoro MD [phone] FAX: Kylee Braun MD [phone] Name: GABBIE TOBIN [facility] : 1955 Age/S: 62/F [address] [facility] Unit #: [id number] Loc: V.3045 [facility] [place] [address] Phys: Edith Lyman MD Acct: [id number] Dis Date: Status: ADM IN PH ONE #: [phone] Exam Date: 09/15/2018 1420 FAX #: [phone] Reason: LINE PLACEMENT EXAMS: CPT CODE: [id number] XR CHEST 1 V [id number] REASON FOR EXAM: LINE PLACEMENT EXAM ORDER DATE: 09/15/2018 12:00 AM Ordering Maral: Edith Lyman MD PROCEDURE: - XR CHEST [...] Edith Lyman MD; Kylee Dia MD Technologist: RT KOFI(R) Trnscrd Date/Time/By: 09/15/2018 (2291) : By: [email or web address] Orig Pr int D/T: S: 09/15/2018 (4915) PAGE 1 Signed Report COMPREHENSIVE METABOLIC PANEL [...] due to change in reagent. COMPREHENSIVE METABOLIC [id number] 11:22:00* Test Item Value Reference Range Interpretation [...] code = ALKP) IUnit/L 45-117 CBC W/AUTO BOWF1326-72-64 10:43:00* Test Item Value Reference Range Interpretation [...] REQUIRED (test code = MDIFF) NO PROTHROMBIN [id number] 23:53:00* Test Item Value Reference Range Interpretation [...] (2.5-3.5) IS PATIENT ON ANTICOAGULANTS? NCBC W/AUTO [id number] 23:51:00* Test Item Value Reference Range Interpretation [...] (test code = MDIFF) NO COMPREHENSIVE METABOLIC SCJRH9914-04-14 23:47:00* Test Item Value Reference Range Interpretation [...] due to change in reagent. COMPREHENSIVE METABOLIC [id number] 23:41:00* Test Item Value Reference Range Interpretation [...] (test code = ALKP) IUnit/L 45-117 Urine Crkaqih5573-91-95 06:24:00* Test Item Value Reference Range Interpretation Comments Urine Culture (test code = 630-4) Organism: NIRANJAN ALBICANS [facility] Bwjgt1744-23-36 06:11:00* Test Item Value Reference Range Interpretation Comments Sodium Level (test code = 2951-2) 138 136-145 [facility] HospitalPotassium Ynvkv5314-42-40 06:11:00* Test Item Value Reference Range Interpretation Comments Potassium Level (test code = 2823-3) 4.6 3.5-5.1 [facility] HospitalChloride Rmbgt6968-15-63 06:11:00* Test Item Value Reference Range Interpretation Comments Chloride Level (test code = 2075-0) 109 98-107 H [facility] HospitalCarbon Dioxide Xnvqm2294-71-23 06:11:00* Test Item Value Reference Range Interpretation Comments Carbon Dioxide Level (test code = 2028-9) 21 22-29 L [facility] HospitalAnion Tkw5880-62-89 06:11:00* Test Item Value Reference Range Interpretation Comments Anion Gap (test code = 05657-2) 12.6 8-16 [facility] HospitalBlood Urea Tzrqmgdj8723-34-21 06:11:00* Test Item Value Reference Range Interpretation Comments Blood Urea Nitrogen (test code = 3094-0) 48 7-26 H [facility] HospitalCreatinine2019-03-10 06:11:00* Test Item Value Reference Range Interpretation Comments Creatinine (test code = 2160-0) 3.53 0.57-1.11 H [facility] HospitalBUN/Creatinine Lzuiu9211-15-57 06:11:00* Test Item Value Reference Range Interpretation Comments BUN/Creatinine Ratio (test code = 3097-3) 14 6-25 [facility] HospitalEstimat Glomerular Filtration Rate 2018-05-30 06:11:00* Test Item Value Reference Range Interpretation Comments Estimat Glomerular Filtration Rate (test code = 409676128) 13 >60 L Ranges were taken from the National Kidney Disease Education Program and the [facility] [employer] literature.Reference ranges:60 or greater: Fstelj27-01 ( for 3 consecutive months): Chronic kidney disease 15 or less: Kidney failureSouth [facility] Spine & Surgical HospitalGlucose Qcvsi0426-52-83 06:11:00* Test Item Value Reference Range Interpretation Comments Glucose Level (test code = BKQ9216) 121 74-118 H [facility] HospitalCalcium Owxyy4977-70-45 06:11:00* Test Item Value Reference Range Interpretation Comments Calcium Level (test code = 22012-0) 9.0 8.4-10.2 [facility] Xwfya9930-62-89 06:11:00* Test Item Value Reference Range Interpretation Comments Sodium Level (test code = 2951-2) 138 136-145 [facility] HospitalPotassium Mpggy7033-84-02 06:11:00* Test Item Value Reference Range Interpretation Comments Potassium Level (test code = 2823-3) 4.6 3.5-5.1 [facility] HospitalChloride Igkki0354-75-58 06:11:00* Test Item Value Reference Range Interpretation Comments Chloride Level (test code = 2075-0) 109 98-107 H [facility] HospitalCarbon Dioxide Ooiyt2957-58-54 06:11:00* Test Item Value Reference Range Interpretation Comments Carbon Dioxide Level (test code = 2028-9) 21 22-29 L [facility] HospitalAnion Ytl5065-71-09 06:11:00* Test Item Value Reference Range Interpretation Comments Anion Gap (test code = 79431-8) 12.6 8-16 [facility] HospitalBlood Urea Lnivsczx0246-84-15 06:11:00* Test Item Value Reference Range Interpretation Comments Blood Urea Nitrogen (test code = 3094-0) 48 7-26 H [facility] HospitalCreatinine2019-03-10 06:11:00* Test Item Value Reference Range Interpretation Comments Creatinine (test code = 2160-0) 3.53 0.57-1.11 H [facility] HospitalBUN/Creatinine Asycn1896-56-98 06:11:00* Test Item Value Reference Range Interpretation Comments BUN/Creatinine Ratio (test code = 3097-3) 14 6-25 [facility] HospitalEstimat Glomerular Filtration Rate 2018-05-30 06:11:00* Test Item Value Reference Range Interpretation Comments Estimat Glomerular Filtration Rate (test code = 265800007) 13 >60 L Ranges were taken from the National Kidney Disease Education Program and the [facility] [employer] literature.Reference ranges:60 or greater: Endvaa12-02 ( for 3 consecutive months): Chronic kidney disease 15 or less: Kidney failureSouth [facility] Spine & Surgical HospitalGlucose Mdwlh3729-54-12 06:11:00* Test Item Value Reference Range Interpretation Comments Glucose Level (test code = BFP1189) 121 74-118 H [facility] HospitalCalcium Mrxmb6883-70-56 06:11:00* Test Item Value Reference Range Interpretation Comments Calcium Level (test code = 38059-2) 9.0 8.4-10.2 [facility] HospitalWhite Blood Qupzf0952-89-97 05:55:00* Test Item Value Reference Range Interpretation Comments White Blood Count (test code = 6690-2) 18.99 4.8-10.8 H [facility] HospitalRed Blood Yuaej5592-37-49 05:55:00* Test Item Value Reference Range Interpretation Comments Red Blood Count (test code = 789-8) 3.47 3.6-5.1 L [facility] HospitalHemoglobin2019-03-10 05:55:00* Test Item Value Reference Range Interpretation Comments Hemoglobin (test code = 74845-2) 9.6 12.0-16.0 L [facility] HospitalHematocrit2019-03-10 05:55:00* Test Item Value Reference Range Interpretation Comments Hematocrit (test code = 4544-3) 31.1 34.2-44.1 L [facility] HospitalMean Corpuscular Kcbqst0169-25-89 05:55:00* Test Item Value Reference Range Interpretation Comments Mean Corpuscular Volume (test code = 787-2) 89.6 81-99 [facility] HospitalMean Corpuscular Apqkiuiatq1048-62-45 05:55:00* Test Item Value Reference Range Interpretation Comments Mean Corpuscular Hemoglobin (test code = 785-6) 27.7 28-32 L [facility] HospitalMean Corpuscular Hemoglobin Concent 2018-05-30 05:55:00* Test Item Value Reference Range Interpretation Comments Mean Corpuscular Hemoglobin Concent (test code = 786-4) 30.9 31-35 L [facility] HospitalRed Cell Distribution Ihuyp2031-42-19 05:55:00* Test Item Value Reference Range Interpretation Comments Red Cell Distribution Width (test code = 57260-5) 15.9 11.7 -14.4 H [facility] HospitalPlatelet Sgire4182-14-62 05:55:00* Test Item Value Reference Range Interpretation Comments Platelet Count (test code = 777-3) 615 140-360 H [facility] HospitalNeutrophils (%) (Auto)2018-05-30 05:55:00 * Test Item Value Reference Range Interpretation Comments Neutrophils (%) (Auto) (test code = 67680-2) 73.6 38.7-80.0 [facility] HospitalLymphocytes (%) (Auto)2018-05-30 05:55:00 * Test Item Value Reference Range Interpretation Comments Lymphocytes (%) (Auto) (test code = 736-9) 17.8 18.0-39.1 L [facility] HospitalMonocytes (%) (Auto)2018-05-30 05:55:00* Test Item Value Reference Range Interpretation Comments Monocytes (%) (Auto) (test code = 5905-5) 6.4 4.4-11.3 [facility] HospitalEosinophils (%) (Auto)2018-05-30 05:55:00 * Test Item Value Reference Range Interpretation Comments Eosinophils (%) (Auto) (test code = 713-8) 1.1 0.0-6.0 [facility] HospitalBasophils (%) (Auto)2018-05-30 05:55:00* Test Item Value Reference Range Interpretation Comments Basophils (%) (Auto) (test code = 706-2) 0.3 0.0-1.0 [facility] HospitalIM GRANULOCYTES %2018-05-30 05:55:00* Test Item Value Reference Range Interpretation Comments IM GRANULOCYTES % (test code = IM GRANULOCYTES %) 0.8 0.0- 1.0 [facility] HospitalNeutrophils # (Auto)2018-05-30 05:55:00* Test Item Value Reference Range Interpretation Comments Neutrophils # (Auto) (test code = 751-8) 14.0 2.1-6.9 H [facility] HospitalLymphocytes # (Auto)2018-05-30 05:55:00* Test Item Value Reference Range Interpretation Comments Lymphocytes # (Auto) (test code = 59130-9) 3.4 1.0-3.2 H [facility] HospitalMonocytes # (Auto)2018-05-30 05:55:00* Test Item Value Reference Range Interpretation Comments Monocytes # (Auto) (test code = 742-7) 1.2 0.2-0.8 H [facility] HospitalEosinophils # (Auto)2018-05-30 05:55:00* Test Item Value Reference Range Interpretation Comments Eosinophils # (Auto) (test code = 711-2) 0.2 0.0-0.4 [facility] HospitalBasophils # (Auto)2018-05-30 05:55:00* Test Item Value Reference Range Interpretation Comments Basophils # (Auto) (test code = 704-7) 0.1 0.0-0.1 [facility] HospitalAbsolute Immature Granulocyte (auto 2018-05-30 05:55:00* Test Item Value Reference Range Interpretation Comments Absolute Immature Granulocyte (auto (ortega t code = Absolute Immature Granulocyte (auto) 0.15 0-0.1 H [facility] HospitalWhite Blood Xqvjp9528-87-60 05:55:00* Test Item Value Reference Range Interpretation Comments White Blood Count (test code = 6690-2) 18.99 4.8-10.8 H [facility] HospitalRed Blood Kegre0643-71-05 05:55:00* Test Item Value Reference Range Interpretation Comments Red Blood Count (test code = 789-8) 3.47 3.6-5.1 L [facility] HospitalHemoglobin2019-03-10 05:55:00* Test Item Value Reference Range Interpretation Comments Hemoglobin (test code = 10038-6) 9.6 12.0-16.0 L [facility] HospitalHematocrit2019-03-10 05:55:00* Test Item Value Reference Range Interpretation Comments Hematocrit (test code = 4544-3) 31.1 34.2-44.1 L [facility] HospitalMean Corpuscular Aqznij4742-76-46 05:55:00* Test Item Value Reference Range Interpretation Comments Mean Corpuscular Volume (test code = 787-2) 89.6 81-99 [facility] HospitalMean Corpuscular Ewlwrmfbfj5923-41-21 05:55:00* Test Item Value Reference Range Interpretation Comments Mean Corpuscular Hemoglobin (test code = 785-6) 27.7 28-32 L [facility] HospitalMean Corpuscular Hemoglobin Concent 2018-05-30 05:55:00* Test Item Value Reference Range Interpretation Comments Mean Corpuscular Hemoglobin Concent (test code = 786-4) 30.9 31-35 L [facility] HospitalRed Cell Distribution Qkvyl1531-77-83 05:55:00* Test Item Value Reference Range Interpretation Comments Red Cell Distribution Width (test code = 27947-1) 15.9 11.7 -14.4 H [facility] HospitalPlatelet Omttj5130-17-79 05:55:00* Test Item Value Reference Range Interpretation Comments Platelet Count (test code = 777-3) 615 140-360 H [facility] HospitalNeutrophils (%) (Auto)2018-05-30 05:55:00 * Test Item Value Reference Range Interpretation Comments Neutrophils (%) (Auto) (test code = 15552-7) 73.6 38.7-80.0 [facility] HospitalLymphocytes (%) (Auto)2018-05-30 05:55:00 * Test Item Value Reference Range Interpretation Comments Lymphocytes (%) (Auto) (test code = 736-9) 17.8 18.0-39.1 L [facility] HospitalMonocytes (%) (Auto)2018-05-30 05:55:00* Test Item Value Reference Range Interpretation Comments Monocytes (%) (Auto) (test code = 5905-5) 6.4 4.4-11.3 [facility] HospitalEosinophils (%) (Auto)2018-05-30 05:55:00 * Test Item Value Reference Range Interpretation Comments Eosinophils (%) (Auto) (test code = 713-8) 1.1 0.0-6.0 [facility] HospitalBasophils (%) (Auto)2018-05-30 05:55:00* Test Item Value Reference Range Interpretation Comments Basophils (%) (Auto) (test code = 706-2) 0.3 0.0-1.0 [facility] HospitalIM GRANULOCYTES %2018-05-30 05:55:00* Test Item Value Reference Range Interpretation Comments IM GRANULOCYTES % (test code = IM GRANULOCYTES %) 0.8 0.0- 1.0 [facility] HospitalNeutrophils # (Auto)2018-05-30 05:55:00* Test Item Value Reference Range Interpretation Comments Neutrophils # (Auto) (test code = 751-8) 14.0 2.1-6.9 H [facility] HospitalLymphocytes # (Auto)2018-05-30 05:55:00* Test Item Value Reference Range Interpretation Comments Lymphocytes # (Auto) (test code = 06812-4) 3.4 1.0-3.2 H [facility] HospitalMonocytes # (Auto)2018-05-30 05:55:00* Test Item Value Reference Range Interpretation Comments Monocytes # (Auto) (test code = 742-7) 1.2 0.2-0.8 H [facility] HospitalEosinophils # (Auto)2018-05-30 05:55:00* Test Item Value Reference Range Interpretation Comments Eosinophils # (Auto) (test code = 711-2) 0.2 0.0-0.4 [facility] HospitalBasophils # (Auto)2018-05-30 05:55:00* Test Item Value Reference Range Interpretation Comments Basophils # (Auto) (test code = 704-7) 0.1 0.0-0.1 [facility] HospitalAbsolute Immature Granulocyte (auto 2018-05-30 05:55:00* Test Item Value Reference Range Interpretation Comments Absolute Immature Granulocyte (auto (ortega t code = Absolute Immature Granulocyte (auto) 0.15 0-0.1 H [facility] HospitalUrine Gmffjnd5631-16-53 10:51:00* Test Item Value Reference Range Interpretation Comments Urine Culture (test code = 630-4) Organism: YEAST SPECIES [facility] HospitalUrine Irjecvo8048-49-31 08:05:00* Test Item Value Reference Range Interpretation Comments Urine Culture (test code = 630-4) Organism: NIRANJAN ALBICANS [facility] HospitalUrine Nertjqh2143-16-86 08:05:00* Test Item Value Reference Range Interpretation Comments Urine Culture (test code = 630-4) Organism: NIRANJAN ALBICANS [facility] HospitalProthrombin Dubs5819-48-44 06:44:00* Test Item Value Reference Range Interpretation Comments Prothrombin Time (test code = 5902-2) 20.0 11.9-14.5 H [facility] HospitalProthromb Time International Ratio 2018-05-27 06:44:00* Test Item Value Reference Range Interpretation Comments Prothromb Time International Ratio (test code = 6301-6) 1.64 Oral Anticoagulant Therapy INR Values:1. Low Intensity Therapy 1.5 - 2.02 . Moderate Intensity Therapy 2.0 - 3.03. High Intensity Therapy(1) 2.5 - 3. 54. High Intensity Therapy(2) 3.0 - 4.05. Panic Value INR > 5.0 [facility] HospitalProthrombin Swrf3475-96-57 06:44:00* Test Item Value Reference Range Interpretation Comments Prothrombin Time (test code = 5902-2) 20.0 11.9-14.5 H [facility] HospitalProthromb Time International Ratio 2018-05-27 06:44:00* Test Item Value Reference Range Interpretation Comments Prothromb Time International Ratio (test code = 6301-6) 1.64 Oral Anticoagulant Therapy INR Values:1. Low Intensity Therapy 1.5 - 2.02 . Moderate Intensity Therapy 2.0 - 3.03. High Intensity Therapy(1) 2.5 - 3. 54. High Intensity Therapy(2) 3.0 - 4.05. Panic Value INR > 5.0 [facility] HospitalABDOMEN-1VIEW (KUB)2018-05-25 10:23:00 [facility] [address] [place] [address] Patient Name: GABBIE TOBIN MR #: [id number] : [birth year] Age/Sex: 62/F Req #: [id number] Adm Physician: KYLEE ACOSTA MD Ordered by: AN POWELL MD Report #: [id number] Location: [facility] Room/Bed: [facility] Procedure: [id number] DX/ ABDOMEN-1VIEW (KUB) Exam Date: 05/25/18 Exam [...] 1035 COPY TO: AN POWELL MD Magnesium Ybocs6461-96-78 07:15:00* Test Item Value Reference Range Interpretation Comments Magnesium Level (test code = 58352-8) 1.6 1.3-2.1 [facility] HospitalMagnesium Vedrn3872-55-30 07:15:00* Test Item Value Reference Range Interpretation Comments Magnesium Level (test code = 00429-7) 1.6 1.3-2.1 [facility] HospitalTotal Hvnlhcufs3493-51-64 07:05:00* Test Item Value Reference Range Interpretation Comments Total Bilirubin (test code = 1974-2) 0.2 0.2-1.2 [facility] HospitalAspartate Amino Transf (AST/SGOT) 2018-05-25 07:05:00* Test Item Value Reference Range Interpretation Comments Aspartate Amino Transf (AST/SGOT) (test code = Aspartate Amino Transf (AST/SGOT)) 11 5-34 [facility] HospitalAlanine Aminotransferase (ALT/SGPT) 2018-05-25 07:05:00* Test Item Value Reference Range Interpretation Comments Alanine Aminotransferase (ALT/SGPT) (test code = 1742-6) 9 0-55 [facility] Vulqcos8866-34-94 07:05:00* Test Item Value Reference Range Interpretation Comments Total Protein (test code = 2885-2) 6.5 6.5-8.1 [facility] HospitalAlbumin2019-03-05 07:05:00* Test Item Value Reference Range Interpretation Comments Albumin (test code = 1751-7) 2.7 3.5-5.0 L [facility] HospitalGlobulin2019-03-05 07:05:00* Test Item Value Reference Range Interpretation Comments Globulin (test code = 52082-2) 3.8 2.3-3.5 H [facility] HospitalAlbumin/Globulin Viiou5855-43-25 07:05:00 * Test Item Value Reference Range Interpretation Comments Albumin/Globulin Ratio (test code = 1759-0) 0.7 0.8-2.0 L [facility] HospitalAlkaline Vxjwmyhkgnq9699-89-77 07:05:00* Test Item Value Reference Range Interpretation Comments Alkaline Phosphatase (test code = 6768-6) 61 40-150 [facility] HospitalT[facility] Hiacvsjds3608-02-54 07:05:00* Test Item Value Reference Range Interpretation Comments Total Bilirubin (test code = 1974-2) 0.2 0.2-1.2 [facility] HospitalAspartate Amino Transf (AST/SGOT) 2018-05-25 07:05:00* Test Item Value Reference Range Interpretation Comments Aspartate Amino Transf (AST/SGOT) (test code = Aspartate Amino Transf (AST/SGOT)) 11 5-34 [facility] HospitalAlanine Aminotransferase (ALT/SGPT) 2018-05-25 07:05:00* Test Item Value Reference Range Interpretation Comments Alanine Aminotransferase (ALT/SGPT) (test code = 1742-6) 9 0-55 [facility] HospitalTotal Krdgudr7889-69-32 07:05:00* Test Item Value Reference Range Interpretation Comments Total Protein (test code = 2885-2) 6.5 6.5-8.1 [facility] HospitalAlbumin2019-03-05 07:05:00* Test Item Value Reference Range Interpretation Comments Albumin (test code = 1751-7) 2.7 3.5-5.0 L [facility] HospitalGlobulin2019-03-05 07:05:00* Test Item Value Reference Range Interpretation Comments Globulin (test code = 24613-5) 3.8 2.3-3.5 H [facility] HospitalAlbumin/Globulin Yvmzf5071-23-59 07:05:00 * Test Item Value Reference Range Interpretation Comments Albumin/Globulin Ratio (test code = 1759-0) 0.7 0.8-2.0 L [facility] HospitalAlkaline Kytlufjxete9240-50-39 07:05:00* Test Item Value Reference Range Interpretation Comments Alkaline Phosphatase (test code = 6768-6) 61 40-150 [facility] HospitalUrine TWK0312-08-82 20:13:00* Test Item Value Reference Range Interpretation Comments Urine WBC (test code = 5821-4) >50 0-5 H [facility] HospitalUrine XTJ1026-86-37 20:13:00* Test Item Value Reference Range Interpretation Comments Urine RBC (test code = 68962-2) 6-10 0-5 H [facility] HospitalUrine Swjgtgca6202-80-84 20:13:00* Test Item Value Reference Range Interpretation Comments Urine Bacteria (test code = 48176-7) FEW NONE [facility] HospitalUrine Epithelial Kvuxu6153-30-94 20:13:00 * Test Item Value Reference Range Interpretation Comments Urine Epithelial Cells (test code = 50491-4) RARE NONE [facility] HospitalUrine XCB5661-40-59 20:13:00* Test Item Value Reference Range Interpretation Comments Urine WBC (test code = 5821-4) >50 0-5 H [facility] HospitalUrine ZCP9821-62-28 20:13:00* Test Item Value Reference Range Interpretation Comments Urine RBC (test code = 74747-6) 6-10 0-5 H [facility] HospitalUrine Lwmxjngz2639-79-95 20:13:00* Test Item Value Reference Range Interpretation Comments Urine Bacteria (test code = 47054-5) FEW NONE [facility] HospitalUrine Epithelial Gcgto1627-40-36 20:13:00 * Test Item Value Reference Range Interpretation Comments Urine Epithelial Cells (test code = 39720-6) RARE NONE [facility] HospitalUrine Znxan8713-49-60 19:58:00* Test Item Value Reference Range Interpretation Comments Urine Color (test code = 5778-6) YELLOW YELLOW [facility] HospitalUrine Jyuzkqy4795-76-27 19:58:00* Test Item Value Reference Range Interpretation Comments Urine Clarity (test code = 93181-0) CLOUDY CLEAR H [facility] HospitalUrine Specific Dqnhelg3465-08-62 19:58:00 * Test Item Value Reference Range Interpretation Comments Urine Specific [place] (test code = 5811-5) 1.025 1.010-1.02 5 [facility] HospitalUrine dI4200-74-78 19:58:00* Test Item Value Reference Range Interpretation Comments Urine pH (test code = 72459-9) 6 5-7 [facility] HospitalUrine Leukocyte Usddiecz8793-77-50 19:58:00* Test Item Value Reference Range Interpretation Comments Urine Leukocyte Esterase (test code = 5799-2) 1+ NEGATIVE H [facility] HospitalUrine Ayduhzq1429-77-47 19:58:00* Test Item Value Reference Range Interpretation Comments Urine Nitrite (test code = 07940-2) NEGATIVE NEGATIVE [facility] HospitalUrine Gtqjxqw3775-32-74 19:58:00* Test Item Value Reference Range Interpretation Comments Urine Protein (test code = 5804-0) 3+ NEGATIVE H [facility] HospitalUrine Glucose (UA)2018-05-23 19:58:00* Test Item Value Reference Range Interpretation Comments Urine Glucose (UA) (test code = 2349-9) NEGATIVE NEGATIVE [facility] HospitalUrine Xigebym5934-81-42 19:58:00* Test Item Value Reference Range Interpretation Comments Urine Ketones (test code = 34065-2) NEGATIVE NEGATIVE [facility] Uqflwcsngewe7681-31-95 19:58:00* Test Item Value Reference Range Interpretation Comments Urine Urobilinogen (test code = 22161-2) 0.2 0.2-1 [facility] Bvfqvsflb5272-99-73 19:58:00* Test Item Value Reference Range Interpretation Comments Urine Bilirubin (test code = 1978-6) NEGATIVE NEGATIVE [facility] HospitalUrine Vbpyu3897-16-41 19:58:00* Test Item Value Reference Range Interpretation Comments Urine Blood (test code = 19977-2) 1+ NEGATIVE H [facility] HospitalUrine Hndgj2084-22-79 19:58:00* Test Item Value Reference Range Interpretation Comments Urine Color (test code = 5778-6) YELLOW YELLOW [facility] HospitalUrine Oztljgi5867-04-93 19:58:00* Test Item Value Reference Range Interpretation Comments Urine Clarity (test code = 11253-2) CLOUDY CLEAR H [facility] HospitalU[facility] Specific Uahgpdy7185-37-28 19:58:00 * Test Item Value Reference Range Interpretation Comments Urine Specific [place] (test code = 5811-5) 1.025 1.010-1.02 5 [facility] HospitalU[facility] cB8428-71-29 19:58:00* Test Item Value Reference Range Interpretation Comments Urine pH (test code = 07404-9) 6 5-7 [facility] HospitalU[facility] Leukocyte Zngtrqez5453-13-66 19:58:00* Test Item Value Reference Range Interpretation Comments Urine Leukocyte Esterase (test code = 5799-2) 1+ NEGATIVE H [facility] HospitalUrine Qgoyigj5419-97-77 19:58:00* Test Item Value Reference Range Interpretation Comments Urine Nitrite (test code = 91804-4) NEGATIVE NEGATIVE [facility] HospitalUrine Fvbjcye6444-81-32 19:58:00* Test Item Value Reference Range Interpretation Comments Urine Protein (test code = 5804-0) 3+ NEGATIVE H [facility] HospitalUrine Glucose (UA)2018-05-23 19:58:00* Test Item Value Reference Range Interpretation Comments Urine Glucose (UA) (test code = 2349-9) NEGATIVE NEGATIVE [facility] HospitalUrine Hezdbqe8075-76-01 19:58:00* Test Item Value Reference Range Interpretation Comments Urine Ketones (test code = 77118-8) NEGATIVE NEGATIVE [facility] Lqufaoktyobw7578-03-99 19:58:00* Test Item Value Reference Range Interpretation Comments Urine Urobilinogen (test code = 32208-0) 0.2 0.2-1 [facility] Kdfntqoxj2007-34-52 19:58:00* Test Item Value Reference Range Interpretation Comments Urine Bilirubin (test code = 1978-6) NEGATIVE NEGATIVE [facility] Nshzw8255-76-40 19:58:00* Test Item Value Reference Range Interpretation Comments Urine Blood (test code = 34555-5) 1+ NEGATIVE H [facility] HospitalMagnesium Aybqs6103-57-34 08:37:00* Test Item Value Reference Range Interpretation Comments Magnesium Level (test code = 81201-3) 2.0 1.3-2.1 [facility]odium Canhl3702-99-07 08:18:00* Test Item Value Reference Range Interpretation Comments Sodium Level (test code = 2951-2) 140 136-145 [facility] HospitalPotassium Kpffd1559-46-52 08:18:00* Test Item Value Reference Range Interpretation Comments Potassium Level (test code = 2823-3) 3.8 3.5-5.1 [facility] HospitalChloride Vvfup6764-67-87 08:18:00* Test Item Value Reference Range Interpretation Comments Chloride Level (test code = 2075-0) 104 98-107 [facility] HospitalCarbon Dioxide Rafau4025-76-87 08:18:00* Test Item Value Reference Range Interpretation Comments Carbon Dioxide Level (test code = 2028-9) 22 22-29 [facility] HospitalAnion Xtt3351-62-79 08:18:00* Test Item Value Reference Range Interpretation Comments Anion Gap (test code = 32488-7) 17.8 8-16 H [facility] HospitalBlood Urea Uxikwhyr7847-34-26 08:18:00* Test Item Value Reference Range Interpretation Comments Blood Urea Nitrogen (test code = 3094-0) 30 7-26 H [facility] HospitalCreatinine2018-12-30 08:18:00* Test Item Value Reference Range Interpretation Comments Creatinine (test code = 2160-0) 2.76 0.57-1.11 H [facility] HospitalBUN/Creatinine Oaxwj3956-55-82 08:18:00* Test Item Value Reference Range Interpretation Comments BUN/Creatinine Ratio (test code = 3097-3) 11 6-25 [facility] HospitalEstimat Glomerular Filtration Rate 2018-03-21 08:18:00* Test Item Value Reference Range Interpretation Comments Estimat Glomerular Filtration Rate (test code = 754299791) 17 >60 L Ranges were taken from the National Kidney Disease Education Program and the [facility] [employer] literature.Reference ranges:60 or greater: Fyaaar30-00 ( for 3 consecutive months): Chronic kidney disease 15 or less: Kidney failureSouth [facility] Spine & [facility] HospitalGlucose Bafes2935-47-70 08:18:00* Test Item Value Reference Range Interpretation Comments Glucose Level (test code = HMI0573) 94 74-118 [facility] HospitalCalcium Bukdf5158-52-26 08:18:00* Test Item Value Reference Range Interpretation Comments Calcium Level (test code = 48080-9) 9.6 8.4-10.2 [facility] HospitalTotal Upxbjsiig4040-92-23 08:18:00* Test Item Value Reference Range Interpretation Comments Total Bilirubin (test code = 1975-2) 0.4 0.2-1.2 [facility] HospitalAspartate Amino Transf (AST/SGOT) 2018-03-21 08:18:00* Test Item Value Reference Range Interpretation Comments Aspartate Amino Transf (AST/SGOT) (test code = Aspartate Amino Transf (AST/SGOT)) 18 5-34 [facility] HospitalAlanine Aminotransferase (ALT/SGPT) 2018-03-21 08:18:00* Test Item Value Reference Range Interpretation Comments Alanine Aminotransferase (ALT/SGPT) (test code = 1742-6) 12 0-55 [facility] Qthnixj2459-80-06 08:18:00* Test Item Value Reference Range Interpretation Comments Total Protein (test code = 2885-2) 7.2 6.5-8.1 [facility] HospitalAlbumin2018-12-30 08:18:00* Test Item Value Reference Range Interpretation Comments Albumin (test code = 1751-7) 2.6 3.5-5.0 L [facility] HospitalGlobulin2018-12-30 08:18:00* Test Item Value Reference Range Interpretation Comments Globulin (test code = 07457-6) 4.6 2.3-3.5 H [facility] HospitalAlbumin/Globulin Eboau7965-67-92 08:18:00 * Test Item Value Reference Range Interpretation Comments Albumin/Globulin Ratio (test code = 1759-0) 0.6 0.8-2.0 L [facility] HospitalAlkaline Qtpakchvnih8013-90-37 08:18:00* Test Item Value Reference Range Interpretation Comments Alkaline Phosphatase (test code = 6768-6) 78 40-150 [facility] HospitalWhite Blood Slmde2900-17-12 07:46:00* Test Item Value Reference Range Interpretation Comments White Blood Count (test code = 6690-2) 17.06 4.8-10.8 H [facility] HospitalRed Blood Tpjnt8567-70-33 07:46:00* Test Item Value Reference Range Interpretation Comments Red Blood Count (test code = 789-8) 3.81 3.6-5.1 [facility] HospitalHemoglobin2018-12-30 07:46:00* Test Item Value Reference Range Interpretation Comments Hemoglobin (test code = 11541-4) 10.0 12.0-16.0 L [facility] HospitalHematocrit2018-12-30 07:46:00* Test Item Value Reference Range Interpretation Comments Hematocrit (test code = 4544-3) 32.9 34.2-44.1 L [facility] HospitalMean Corpuscular Hzgfzj1268-11-68 07:46:00* Test Item Value Reference Range Interpretation Comments Mean Corpuscular Volume (test code = 787-2) 86.4 81-99 [facility] HospitalMean Corpuscular Zhxiditzuw5623-12-96 07:46:00* Test Item Value Reference Range Interpretation Comments Mean Corpuscular Hemoglobin (test code = 785-6) 26.2 28-32 L [facility] HospitalMean Corpuscular Hemoglobin Concent 2018-03-21 07:46:00* Test Item Value Reference Range Interpretation Comments Mean Corpuscular Hemoglobin Concent (test code = 786-4) 30.4 31-35 L [facility] HospitalRed Cell Distribution Lvsov0821-75-52 07:46:00* Test Item Value Reference Range Interpretation Comments Red Cell Distribution Width (test code = 75453-6) 16.0 11.7 -14.4 H [facility] HospitalPlatelet Ztibu7488-49-52 07:46:00* Test Item Value Reference Range Interpretation Comments Platelet Count (test code = 777-3) 727 140-360 H [facility] HospitalNeutrophils (%) (Auto)2018-03-21 07:46:00 * Test Item Value Reference Range Interpretation Comments Neutrophils (%) (Auto) (test code = 55945-1) 56.8 38.7-80.0 [facility] HospitalLymphocytes (%) (Auto)2018-03-21 07:46:00 * Test Item Value Reference Range Interpretation Comments Lymphocytes (%) (Auto) (test code = 736-9) 29.5 18.0-39.1 [facility] HospitalMonocytes (%) (Auto)2018-03-21 07:46:00* Test Item Value Reference Range Interpretation Comments Monocytes (%) (Auto) (test code = 5905-5) 7.6 4.4-11.3 [facility] HospitalEosinophils (%) (Auto)2018-03-21 07:46:00 * Test Item Value Reference Range Interpretation Comments Eosinophils (%) (Auto) (test code = 713-8) 4.7 0.0-6.0 [facility] HospitalBasophils (%) (Auto)2018-03-21 07:46:00* Test Item Value Reference Range Interpretation Comments Basophils (%) (Auto) (test code = 706-2) 0.5 0.0-1.0 [facility] HospitalIM GRANULOCYTES %2018-03-21 07:46:00* Test Item Value Reference Range Interpretation Comments IM GRANULOCYTES % (test code = IM GRANULOCYTES %) 0.9 0.0- 1.0 [facility] HospitalNeutrophils # (Auto)2018-03-21 07:46:00* Test Item Value Reference Range Interpretation Comments Neutrophils # (Auto) (test code = 751-8) 9.7 2.1-6.9 H [facility] HospitalLymphocytes # (Auto)2018-03-21 07:46:00* Test Item Value Reference Range Interpretation Comments Lymphocytes # (Auto) (test code = 40269-9) 5.0 1.0-3.2 H [facility] HospitalMonocytes # (Auto)2018-03-21 07:46:00* Test Item Value Reference Range Interpretation Comments Monocytes # (Auto) (test code = 742-7) 1.3 0.2-0.8 H [facility] HospitalEosinophils # (Auto)2018-03-21 07:46:00* Test Item Value Reference Range Interpretation Comments Eosinophils # (Auto) (test code = 711-2) 0.8 0.0-0.4 H [facility] HospitalBasophils # (Auto)2018-03-21 07:46:00* Test Item Value Reference Range Interpretation Comments Basophils # (Auto) (test code = 704-7) 0.1 0.0-0.1 [facility] HospitalAbsolute Immature Granulocyte (auto 2018-03-21 07:46:00* Test Item Value Reference Range Interpretation Comments Absolute Immature Granulocyte (auto (ortega t code = Absolute Immature Granulocyte (auto) 0.15 0-0.1 H [facility] HospitalCHEST 2 HQNJT5183-03-89 09:20:00 [place] [address] Patient Name: GABBIE TOBIN MR #: [id number] : 1955 Age/Sex: 62/F Req #: [id number] [facility] Physician: KYLEE ACOSTA MD Ordered by: PINA RUCKER MD Report #: [id number] Location: [facility] Room/Bed: [facility] Procedure: [id number] DX/C HEST 2 VIEWS Exam Date: 03/17/18 [...] 03/17/18919 COPY TO: PINA RUCKER MD Prothrombin Bptd9696-37-62 07:26:00* Test Item Value Reference Range Interpretation Comments Prothrombin Time (test code = 5902-2) 31.1 11.9-14.5 H [facility] HospitalProthromb Time International Ratio 2018-03-17 07:26:00* Test Item Value Reference Range Interpretation Comments Prothromb Time International Ratio (test code = 6301-6) 2.75 Oral Anticoagulant Therapy INR Values:1. Low Intensity Therapy 1.5 - 2.02 . Moderate Intensity Therapy 2.0 - 3.03. High Intensity Therapy(1) 2.5 - 3. 54. High Intensity Therapy(2) 3.0 - 4.05. Panic Value INR > 5.0 [facility] HospitalRed Cell Morphology Ocqglxm1880-96-92 06:12:00* Test Item Value Reference Range Interpretation Comments Red Cell Morphology Comment (test code = 6742-1) NORMAL [facility] HospitalRed Cell Morphology Rpbycws0638-18-20 06:12:00* Test Item Value Reference Range Interpretation Comments Red Cell Morphology Comment (test code = 6742-1) NORMAL [facility] HospitalRed Cell Morphology Avmfkya4846-51-40 06:12:00* Test Item Value Reference Range Interpretation Comments Red Cell Morphology Comment (test code = 6742-1) NORMAL [facility] HospitalDifferential Total Cells Counted 2018-03-17 06:07:00* Test Item Value Reference Range Interpretation Comments Differential Total Cells Counted (test code = Differkari tial Total Cells Counted) 100 [facility] HospitalNeutrophils % (Manual)2018-03-17 06:07:00 * Test Item Value Reference Range Interpretation Comments Neutrophils % (Manual) (test code = 50634-6) 63 40-74 [facility] HospitalBand Neutrophils %2018-03-17 06:07:00* Test Item Value Reference Range Interpretation Comments Band Neutrophils % (test code = 764-1) 2 [facility] HospitalLymphocytes % (Manual)2018-03-17 06:07:00 * Test Item Value Reference Range Interpretation Comments Lymphocytes % (Manual) (test code = 737-7) 21 19-48 [facility] HospitalMonocytes % (Manual)2018-03-17 06:07:00* Test Item Value Reference Range Interpretation Comments Monocytes % (Manual) (test code = 744-3) 11 3.4-9.0 H [facility] HospitalEosinophils % (Manual)2018-03-17 06:07:00 * Test Item Value Reference Range Interpretation Comments Eosinophils % (Manual) (test code = 714-6) 2 0-7 [facility] HospitalBasophils % (Manual)2018-03-17 06:07:00* Test Item Value Reference Range Interpretation Comments Basophils % (Manual) (test code = 12445-3) 1 0-1.5 [facility] HospitalPlatelet Wztfrzxp0681-87-22 06:07:00* Test Item Value Reference Range Interpretation Comments Platelet Estimate (test code = 41213-3) MODERATELY INCREASED [facility] HospitalPlatelet Morphology Kwumtkf6829-28-76 06:07:00* Test Item Value Reference Range Interpretation Comments Platelet Morphology Comment (test code = 82253-7) FEW LARGE [facility] HospitalPoikilocytosis2018-12-26 06:07:00* Test Item Value Reference Range Interpretation Comments Poikilocytosis (test code = 779-9) SLIGHT [facility] HospitalAnisocytosis2018-12-26 06:07:00* Test Item Value Reference Range Interpretation Comments Anisocytosis (test code = 702-1) S [facility] HospitalDifferential Total Cells Counted 2018-03-17 06:07:00* Test Item Value Reference Range Interpretation Comments Differential Total Cells Counted (test code = Differkari tial Total Cells Counted) 100 [facility] HospitalNeutrophils % (Manual)2018-03-17 06:07:00 * Test Item Value Reference Range Interpretation Comments Neutrophils % (Manual) (test code = 54970-6) 63 40-74 [facility] HospitalBand Neutrophils %2018-03-17 06:07:00* Test Item Value Reference Range Interpretation Comments Band Neutrophils % (test code = 764-1) 2 [facility] HospitalLymphocytes % (Manual)2018-03-17 06:07:00 * Test Item Value Reference Range Interpretation Comments Lymphocytes % (Manual) (test code = 737-7) 21 19-48 [facility] HospitalMonocytes % (Manual)2018-03-17 06:07:00* Test Item Value Reference Range Interpretation Comments Monocytes % (Manual) (test code = 744-3) 11 3.4-9.0 H [facility] HospitalEosinophils % (Manual)2018-03-17 06:07:00 * Test Item Value Reference Range Interpretation Comments Eosinophils % (Manual) (test code = 714-6) 2 0-7 [facility] HospitalBasophils % (Manual)2018-03-17 06:07:00* Test Item Value Reference Range Interpretation Comments Basophils % (Manual) (test code = 08769-6) 1 0-1.5 [facility] HospitalPlatelet Yxdgontb2176-11-20 06:07:00* Test Item Value Reference Range Interpretation Comments Platelet Estimate (test code = 77385-3) MODERATELY INCREASED [facility] HospitalPlatelet Morphology Qoemada7989-54-46 06:07:00* Test Item Value Reference Range Interpretation Comments Platelet Morphology Comment (test code = 96695-2) FEW LARGE [facility] HospitalPoikilocytosis2018-12-26 06:07:00* Test Item Value Reference Range Interpretation Comments Poikilocytosis (test code = 779-9) SLIGHT [facility] HospitalAnisocytosis2018-12-26 06:07:00* Test Item Value Reference Range Interpretation Comments Anisocytosis (test code = 702-1) S [facility] HospitalDifferential Total Cells Counted 2018-03-17 06:07:00* Test Item Value Reference Range Interpretation Comments Differential Total Cells Counted (test code = Dhaval tial Total Cells Counted) 100 [facility] HospitalNeutrophils % (Manual)2018-03-17 06:07:00 * Test Item Value Reference Range Interpretation Comments Neutrophils % (Manual) (test code = 31365-8) 63 40-74 [facility] HospitalBand Neutrophils %2018-03-17 06:07:00* Test Item Value Reference Range Interpretation Comments Band Neutrophils % (test code = 764-1) 2 [facility] HospitalLymphocytes % (Manual)2018-03-17 06:07:00 * Test Item Value Reference Range Interpretation Comments Lymphocytes % (Manual) (test code = 737-7) 21 19-48 [facility] HospitalMonocytes % (Manual)2018-03-17 06:07:00* Test Item Value Reference Range Interpretation Comments Monocytes % (Manual) (test code = 744-3) 11 3.4-9.0 H [facility] HospitalEosinophils % (Manual)2018-03-17 06:07:00 * Test Item Value Reference Range Interpretation Comments Eosinophils % (Manual) (test code = 714-6) 2 0-7 [facility] HospitalBasophils % (Manual)2018-03-17 06:07:00* Test Item Value Reference Range Interpretation Comments Basophils % (Manual) (test code = 20800-9) 1 0-1.5 [facility] HospitalPlatelet Ublvgplp4343-81-06 06:07:00* Test Item Value Reference Range Interpretation Comments Platelet Estimate (test code = 09477-8) MODERATELY INCREASED [facility] HospitalPlatelet Morphology Abuzonc0187-43-95 06:07:00* Test Item Value Reference Range Interpretation Comments Platelet Morphology Comment (test code = 99695-4) FEW LARGE [facility] HospitalPoikilocytosis2018-12-26 06:07:00* Test Item Value Reference Range Interpretation Comments Poikilocytosis (test code = 779-9) SLIGHT [facility] HospitalAnisocytosis2018-12-26 06:07:00* Test Item Value Reference Range Interpretation Comments Anisocytosis (test code = 702-1) S [facility] HospitalMicrocytosis2018-12-25 06:41:00* Test Item Value Reference Range Interpretation Comments Microcytosis (test code = 741-9) SLIGHT [facility] HospitalMicrocytosis2018-12-25 06:41:00* Test Item Value Reference Range Interpretation Comments Microcytosis (test code = 741-9) SLIGHT [facility] HospitalMicrocytosis2018-12-25 06:41:00* Test Item Value Reference Range Interpretation Comments Microcytosis (test code = 741-9) SLIGHT [facility] HospitalCHEST 2 HGBZT0007-40-16 15:04:00 [place] [address] Patient Name: GABBIE TOBIN MR #: [id number] : 1955 Age/Sex: 62/F Req #: [id number] Adm Physician: KYLEE ACOSTA MD Ordered by: AN POWELL MD Report #: [id number] Location: [facility]G[address] [place] [address]/Bed: 287-1 Procedure: [id number] DX/CHEST 2 VIEWS Exam Date: Exam Time: [...] on 03/15/181506 COPY TO: AN STACY MD Cntxtfdiyhdef2257-21-19 09:12:00* Test Item Value Reference Range Interpretation Comments Hypochromasia (test code = 728-6) MODERATE [facility]2018-12-24 09:12:00* Test Item Value Reference Range Interpretation Comments Hypochromasia (test code = 728-6) MODERATE [facility]2018-12-24 09:12:00* Test Item Value Reference Range Interpretation Comments Hypochromasia (test code = 728-6) MODERATE [facility] HospitalCT ABDOMEN/PELVIS PA9308-50-04 08:48:00 [facility] [address] [place] [address] Patient Name: GABBIE TOBIN MR #: [id number] : 1955 Age/Sex: 62/F Req #: [id number] Adm Physician: KYLEE ACOSTA MD Ordered by: PINA RUCKER MD Report #: [id number] Location: MED/SURG3 Room/Bed: [facility] Procedure: [id number] CT/C T ABDOMEN/PELVIS WO Exam Date: 03/15/18 [...] 9:01 AM Dictated By: BUFFY GUZMAN MD [id number] Transcribed By: ALEXIA on 03/15/18 0901 COPY TO: PINA RUCKER MD Bedside Oaroipj5087-24-01 16:27:00* Test Item Value Reference Range Interpretation Comments Bedside Glucose (test code = 04730-9) 356 70-120 H Meter ID: [id number] [facility] Glucose 2018-03-14 16:27:00* Test Item Value Reference Range Interpretation Comments Bedside Glucose (test code = 22045-2) 356 70-120 H Meter ID: [id number] [facility] Glucose 2018-03-14 16:27:00* Test Item Value Reference Range Interpretation Comments Bedside Glucose (test code = 07485-3) 356 70-120 H Meter ID: [id number] [facility] 2018-03-10 12:12:00 [place] [address] Patient Name: GABBIE TOBIN MR #: [id number] : 1955 Age/Sex: 62/F Req #: [id number] Adm Physician: KYLEE ACOSTA MD Ordered by: AN POWELL MD Report #: [id number] Location: MED/SURG3 Room/Bed: [facility] Procedure: [id number] DX/CHEST 2 VIEWS Exam Date: 03/10/18 Exam [...] ENCARNACION MD on 03/10/18 1213 Transcribed By: FLORIAN SO on 03/10/18 1213 COPY TO: AN POWELL MD Lactic Acid Level 2018-03-10 10:15:00* Test Item Value Reference Range Interpretation Comments Lactic Acid Level (test code = Lactic Acid Level) 7.8 4.5- 19.8 [facility] HospitalLactic Acid Geslw8388-79-74 10:15:00* Test Item Value Reference Range Interpretation Comments Lactic Acid Level (test code = Lactic Acid Level) 7.8 4.5- 19.8 [facility] HospitalLactic Acid Ybtje8543-70-24 10:15:00* Test Item Value Reference Range Interpretation Comments Lactic Acid Level (test code = Lactic Acid Level) 7.8 4.5- 19.8 [facility] HospitalUrine KGO2390-99-37 10:53:00* Test Item Value Reference Range Interpretation Comments Urine WBC (test code = 5821-4) NONE 0-5 [facility] HospitalUrine OEM2944-87-43 10:53:00* Test Item Value Reference Range Interpretation Comments Urine RBC (test code = 77459-3) 21-50 0-5 H [facility] HospitalUrine Diawuzxr3867-22-50 10:53:00* Test Item Value Reference Range Interpretation Comments Urine Bacteria (test code = 84832-0) FEW NONE [facility] HospitalUrine Epithelial Rsirj7713-60-82 10:53:00 * Test Item Value Reference Range Interpretation Comments Urine Epithelial Cells (test code = 67380-5) FEW NONE [facility] HospitalUrine Pjtmb6882-47-29 10:29:00* Test Item Value Reference Range Interpretation Comments Urine Color (test code = 5778-6) YELLOW YELLOW [facility] HospitalUrine Lnkznic9137-47-55 10:29:00* Test Item Value Reference Range Interpretation Comments Urine Clarity (test code = 98942-8) SL CLOUDY CLEAR [facility] HospitalUrine Specific Evqbbhc8053-55-59 10:29:00 * Test Item Value Reference Range Interpretation Comments Urine Specific [place] (test code = 5811-5) 1.025 1.010-1.02 5 [facility] HospitalUrine mT8979-04-62 10:29:00* Test Item Value Reference Range Interpretation Comments Urine pH (test code = 14406-6) 6 5-7 [facility] HospitalUrine Leukocyte Evpwlozq9172-45-70 10:29:00* Test Item Value Reference Range Interpretation Comments Urine Leukocyte Esterase (test code = 5799-2) NEGATIVE NEGATIVE [facility] HospitalUrine Zultqpb9528-97-28 10:29:00* Test Item Value Reference Range Interpretation Comments Urine Nitrite (test code = 66007-0) NEGATIVE NEGATIVE [facility] HospitalUrine Fatjtzn6411-61-43 10:29:00* Test Item Value Reference Range Interpretation Comments Urine Protein (test code = 5804-0) 3+ NEGATIVE H [facility] HospitalUrine Glucose (UA)2018-03-09 10:29:00* Test Item Value Reference Range Interpretation Comments Urine Glucose (UA) (test code = 2349-9) NEGATIVE NEGATIVE [facility] HospitalUrine Rnxzkrn2207-25-60 10:29:00* Test Item Value Reference Range Interpretation Comments Urine Ketones (test code = 89898-1) NEGATIVE NEGATIVE [facility] HospitalUrine Bkhwnrhdpany0462-22-75 10:29:00* Test Item Value Reference Range Interpretation Comments Urine Urobilinogen (test code = 32673-9) 0.2 0.2-1 [facility] HospitalUrine Iypidaodi9442-36-87 10:29:00* Test Item Value Reference Range Interpretation Comments Urine Bilirubin (test code = 1978-6) NEGATIVE NEGATIVE [facility] HospitalUrine Naijh9912-96-74 10:29:00* Test Item Value Reference Range Interpretation Comments Urine Blood (test code = 00515-6) 3+ NEGATIVE H [facility]CT [facility]/PELVIS FO4368-90-21 15:43:00 [place] [address] Patient Name: GABBIE TOBIN MR #: [id number] : 1955 Age/Sex: 62/F Req #: [id number] [facility] Physician: KYLEE ACOSTA MD Ordered by: AN POWELL MD Report #: [id number] Location: MED/SURG[address] [place] [address]/Bed: [facility] Procedure: [id number] CT/CT AB DOMEN/PELVIS WO Exam Date: 03/07/18 Exam Time: 1432 REPORT STATUS: Signed EXAM: CT A bdomen and Pelvis WITHOUT contrast INDICATION: STONE PROTOCOL. PERS ISTENT L FLANK PAINS. [id number] COMPARISON: CT abdomen and pe lvis [...] 4:08 PM Dictated By: CELIA OWENS MD 07 Transcribed By: ALEXIA on 1607 COPY TO: AN POWELL MD WRIST COMPLETE JQNNH7585-40-00 11:47:00 [place] [address] Patient Name: GABBIE TOBIN MR #: [id number] : 1955 Age/Sex: 62/F Req #: [id number] Adm Physician: KYLEE ACOSTA MD Ordered by: PINA RUCKER MD Report #: [id number] Location: MED/SURG3 Room/Bed: [facility] Procedure: [id number] DX/W RIST COMPLETE RIGHT Exam Date: 03/06/18 [...] COPY TO: PINA RUCKER MD ELBOW RIGHT XFFTWTFB7494-64-66 11:44:00 [place] [address] Patient Name: GABBIE TOBIN MR #: [id number] : 1955 Age/Sex: 62/F Req #: [id number] Adm Physician: KYLEE ACOSTA MD Ordered by: PINA RUCKER MD Report #: [id number] Location: [facility] Room/Bed: [facility] Procedure: [id number] DX/E LBOW RIGHT COMPLETE Exam Date: 03/06/18 [...] 11:47 AM Dictated By: JERONIMO POWELL MD 46 Transcribed By: ALEXIA on 03/06/181146 COPY TO: PINA RUCKER Urine Wxycotq7788-65-97 07:55:00* Test Item Value Reference Range Interpretation Comments Urine Culture (test code = 630-4) Organism: ESCHERICHIA COLI [facility] [id number] 15:53:00 [facility] [address] [place] [address] Patient Name: GABBIE TOBIN MR #: [id number] : 1955 Age/Sex: 62/F Req #: [id number] Adm Physician: Ordered by: FLAKITA GIRARD MD Report #: [id number] Location: ER Room/Bed: Procedure: [id number] C T/CT ABDOMEN/PELVIS WO Exam Date: Exam [...] 4:16 PM Dictated By: SERGIO GILBERT DO 6323 Transcribe d By: ALEXIA on 03/03/186 COPY TO: FLAKITA GIRARD MD Urine Transitional Epithelial Nwwjt7594-06-99 13:43:00* Test Item Value Reference Range Interpretation Comments Urine Transitional Epithelial Cells (test code = 8249-5) [facility]helial Umtan4453-71-99 13:43:00* Test Item Value Reference Range Interpretation Comments Urine Renal Epithelial Cells (test code = 18465-2) FEW NON E [facility] Transitional Epithelial Cells 2018-03-03 13:43:00* Test Item Value Reference Range Interpretation Comments Urine Transitional Epithelial Cells (test code = 8249-5) RARE NONE [facility] Renal Epithelial Okxst7077-86-69 13:43:00* Test Item Value Reference Range Interpretation Comments Urine Renal Epithelial Cells (test code = 27184-7) FEW NON E [facility] Transitional Epithelial Cells 2018-03-03 13:43:00* Test Item Value Reference Range Interpretation Comments Urine Transitional Epithelial Cells (test code = 8249-5) RARE NONE [facility] Renal Epithelial Wdpqp7157-77-14 13:43:00* Test Item Value Reference Range Interpretation Comments Urine Renal Epithelial Cells (test code = 83402-1) FEW NON E [facility] CenterKNEE LEFT THREE YKAKL5129-19-58 23:56:00 [facility] [address] [place] [address] Patient Name: GABBIE TOBIN MR #: [id number] : 1955 Age/Sex: 62/F Req #: [id number] Adm Physician: Ordered by: RONY RONDON MD Report #: [id number] Location: Room/Bed: Procedure: [id number] D X/KNEE LEFT THREE VIEWS Exam Date: 01/25/18 Exam Kade e: 2317 REPORT STATUS: Signed KN EE LEFT THREE VIEWS HISTORY: Status post fall down stairs. Pain to left h ip and knee. COMPARISON: None available. FINDINGS: Bones: No [place] displaced fracture. Osseous alignment is within normal limits. Join ts: Advanced tricompartmental degenerative changes. Soft tissues: Small joint effusion. Vascular calcifications. IMPRESSION: No acute radiograp hic abnormality. Signed by: DR. Bird Haynes MD on 01/25/2018 11:58 PM Dictated By: BIRD HAYNES MD 57 Transcribed By: ALEXIA on 01/25/182357 COPY TO: RONY DIAMOND MD HIP LEFT 2-3 VW (+/- PELVIS)2018-01-25 23:54:00 [place] [address] Patient Name: GABBIE TOBIN MR #: [id number] : 1955 Age/Sex: 62/F Req #: [id number] Adm Physician: Ordered by: RONY RONDON MD Report #: [id number] Location: ER Room/Bed: Procedure: [id number] D X/HIP LEFT 2-3 VW (+/- PELVIS) [...] TO: RONY RONDON MD CT LUMBAR SPINE [id number] 23:22:00 [facility] [address] [place] [address] Patient Name: GABBIE TOBIN MR #: [id number] : 1955 Age/Sex: 62/F Req #: [id number] Adm Physician: Ordered by: RONY RONDON MD Report #: [id number] Location: ER Room/Bed: Procedure: [id number] C T/CT LUMBAR SPINE WO Exam Date: 01/25/18 Exam Time: 2310 REPORT STATUS: Signed Exami nation: CT LUMBAR SPINE WITHOUT CONTRAST History: Low back pain after traum a. Comparison studies: None Technique: [facility] T[facility]. Coronal and [...] COPY T O: RONY RONDON MD Wound Cvphsys5320-82-18 10:10:00* Test Item Value Reference Range Interpretation Comments Wound Culture (test code = 6462-6) Organism: STAPHYLOCOCCUS AUREUS [facility] HospitalWound Vnwczop3053-58-36 10:10:00* Test Item Value Reference Range Interpretation Comments Wound Culture (test code = 6462-6) Organism: STAPHYLOCOCCUS AUREUS [facility] HospitalBlood Tmrmrmq5821-39-77 08:58:00* Test Item Value Reference Range Interpretation Comments Blood Culture (test code = 47767396) NO GROWTH AFTER 5 DAYS, FINAL REPORT [facility] HospitalBlood Gvnpwpy1509-41-87 08:58:00* Test Item Value Reference Range Interpretation Comments Blood Culture (test code = 08169527) NO GROWTH AFTER 5 DAYS, FINAL REPORT [facility] HospitalDifferential Total Cells Counted 2017-07-23 09:43:00* Test Item Value Reference Range Interpretation Comments Differential Total Cells Counted (test code = Differen tial Total Cells Counted) 100 [facility] HospitalNeutrophils % (Manual)2017-07-23 09:43:00 * Test Item Value Reference Range Interpretation Comments Neutrophils % (Manual) (test code = 50608-8) 65 40-74 [facility] HospitalLymphocytes % (Manual)2017-07-23 09:43:00 * Test Item Value Reference Range Interpretation Comments Lymphocytes % (Manual) (test code = 737-7) 24 19-48 [facility] HospitalMonocytes % (Manual)2017-07-23 09:43:00* Test Item Value Reference Range Interpretation Comments Monocytes % (Manual) (test code = 744-3) 7 3.4-9.0 [facility] HospitalEosinophils % (Manual)2017-07-23 09:43:00 * Test Item Value Reference Range Interpretation Comments Eosinophils % (Manual) (test code = 714-6) 4 0-7 [facility] HospitalPlatelet Exdzodca6262-32-36 09:43:00* Test Item Value Reference Range Interpretation Comments Platelet Estimate (test code = 85866-2) ADEQUATE [facility] HospitalPlatelet Morphology Xnvxbaa4407-07-51 09:43:00* Test Item Value Reference Range Interpretation Comments Platelet Morphology Comment (test code = 33275-3) NORMAL [facility] HospitalHypochromasia2018-05-03 09:43:00* Test Item Value Reference Range Interpretation Comments Hypochromasia (test code = 728-6) SLIGHT [facility] HospitalPoikilocytosis2018-05-03 09:43:00* Test Item Value Reference Range Interpretation Comments Poikilocytosis (test code = 779-9) SLIGHT [facility] HospitalAnisocytosis2018-05-03 09:43:00* Test Item Value Reference Range Interpretation Comments Anisocytosis (test code = 702-1) SLIGHT [facility] HospitalRed Cell Morphology Teudzyw0176-37-69 09:43:00* Test Item Value Reference Range Interpretation Comments Red Cell Morphology Comment (test code = 6742-1) NORMAL [facility] HospitalWhite Blood Rfmwh6459-05-66 07:35:00* Test Item Value Reference Range Interpretation Comments White Blood Count (test code = 6690-2) 15.91 4.8-10.8 H [facility] HospitalRed Blood Hhjyv3116-01-45 07:35:00* Test Item Value Reference Range Interpretation Comments Red Blood Count (test code = 789-8) 3.46 3.6-5.1 L [facility] HospitalHemoglobin2018-05-03 07:35:00* Test Item Value Reference Range Interpretation Comments Hemoglobin (test code = 53558-3) 9.4 12.0-16.0 L [facility] HospitalHematocrit2018-05-03 07:35:00* Test Item Value Reference Range Interpretation Comments Hematocrit (test code = 4544-3) 29.2 34.2-44.1 L [facility] HospitalMean Corpuscular Nunwhk0296-81-52 07:35:00* Test Item Value Reference Range Interpretation Comments Mean Corpuscular Volume (test code = 787-2) 84.4 81-99 [facility] HospitalMean Corpuscular Xxljjanvnz5111-90-40 07:35:00* Test Item Value Reference Range Interpretation Comments Mean Corpuscular Hemoglobin (test code = 785-6) 27.2 28-32 L [facility] HospitalMean Corpuscular Hemoglobin Concent 2017-07-23 07:35:00* Test Item Value Reference Range Interpretation Comments Mean Corpuscular Hemoglobin Concent (test code = 786-4) 32.2 31-35 [facility] HospitalRed Cell Distribution Apmnt3710-12-72 07:35:00* Test Item Value Reference Range Interpretation Comments Red Cell Distribution Width (test code = 71022-8) 15.2 11.7 -14.4 H [facility] HospitalPlatelet Cotob1137-33-91 07:35:00* Test Item Value Reference Range Interpretation Comments Platelet Count (test code = 777-3) 469 140-360 H [facility] HospitalNeutrophils (%) (Auto)2017-07-23 07:35:00 * Test Item Value Reference Range Interpretation Comments Neutrophils (%) (Auto) (test code = 16229-4) 65.2 38.7-80.0 [facility] HospitalLymphocytes (%) (Auto)2017-07-23 07:35:00 * Test Item Value Reference Range Interpretation Comments Lymphocytes (%) (Auto) (test code = 736-9) 20.5 18.0-39.1 [facility] HospitalMonocytes (%) (Auto)2017-07-23 07:35:00* Test Item Value Reference Range Interpretation Comments Monocytes (%) (Auto) (test code = 5905-5) 9.9 4.4-11.3 [facility] HospitalEosinophils (%) (Auto)2017-07-23 07:35:00 * Test Item Value Reference Range Interpretation Comments Eosinophils (%) (Auto) (test code = 713-8) 2.6 0.0-6.0 [facility] HospitalBasophils (%) (Auto)2017-07-23 07:35:00* Test Item Value Reference Range Interpretation Comments Basophils (%) (Auto) (test code = 706-2) 0.2 0.0-1.0 [facility] HospitalIM GRANULOCYTES %2017-07-23 07:35:00* Test Item Value Reference Range Interpretation Comments IM GRANULOCYTES % (test code = IM GRANULOCYTES %) 1.6 0.0- 1.0 H [facility] HospitalNeutrophils # (Auto)2017-07-23 07:35:00* Test Item Value Reference Range Interpretation Comments Neutrophils # (Auto) (test code = 751-8) 10.4 2.1-6.9 H [facility] HospitalLymphocytes # (Auto)2017-07-23 07:35:00* Test Item Value Reference Range Interpretation Comments Lymphocytes # (Auto) (test code = 28774-7) 3.3 1.0-3.2 H [facility] HospitalMonocytes # (Auto)2017-07-23 07:35:00* Test Item Value Reference Range Interpretation Comments Monocytes # (Auto) (test code = 742-7) 1.6 0.2-0.8 H [facility] HospitalEosinophils # (Auto)2017-07-23 07:35:00* Test Item Value Reference Range Interpretation Comments Eosinophils # (Auto) (test code = 711-2) 0.4 0.0-0.4 [facility] HospitalBasophils # (Auto)2017-07-23 07:35:00* Test Item Value Reference Range Interpretation Comments Basophils # (Auto) (test code = 704-7) 0.0 0.0-0.1 [facility] HospitalAbsolute Immature Granulocyte (auto 2017-07-23 07:35:00* Test Item Value Reference Range Interpretation Comments Absolute Immature Granulocyte (auto (ortega t code = Absolute Immature Granulocyte (auto) 0.26 0-0.1 H [facility] HospitalMagnesium Ewbsz2389-57-52 07:34:00* Test Item Value Reference Range Interpretation Comments Magnesium Level (test code = 52216-0) 1.6 1.3-2.1 [facility] Renaissanceodium Xujdq3365-66-48 07:28:00* Test Item Value Reference Range Interpretation Comments Sodium Level (test code = 2951-2) 140 136-145 [facility] HospitalPotassium Tchej7780-36-59 07:28:00* Test Item Value Reference Range Interpretation Comments Potassium Level (test code = 2823-3) 3.9 3.5-5.1 [facility] HospitalChloride Gooyn2850-50-97 07:28:00* Test Item Value Reference Range Interpretation Comments Chloride Level (test code = 2075-0) 112 98-107 H [facility] HospitalCarbon Dioxide Ollcv7000-03-64 07:28:00* Test Item Value Reference Range Interpretation Comments Carbon Dioxide Level (test code = 2028-9) 19 22-29 L [facility] HospitalAnion Ewq6401-22-31 07:28:00* Test Item Value Reference Range Interpretation Comments Anion Gap (test code = 95508-8) 12.9 8-16 [facility] HospitalBlood Urea Wfkmlfsb2980-45-17 07:28:00* Test Item Value Reference Range Interpretation Comments Blood Urea Nitrogen (test code = 3094-0) 47 7-26 H [facility] HospitalCreatinine2018-05-03 07:28:00* Test Item Value Reference Range Interpretation Comments Creatinine (test code = 2160-0) 2.30 0.57-1.11 H [facility] HospitalBUN/Creatinine Wovxv8954-88-27 07:28:00* Test Item Value Reference Range Interpretation Comments BUN/Creatinine Ratio (test code = 3097-3) 20 6-25 [facility] HospitalEstimat Glomerular Filtration Rate 2017-07-23 07:28:00* Test Item Value Reference Range Interpretation Comments Estimat Glomerular Filtration Rate (test code = 66392-8) 22 >60 L Ranges were taken from the National Kidney Disease Education Program and the [facility] Foundation literature.Reference ranges:60 or greater: Rqyamt22-69 ( for 3 consecutive months): Chronic kidney disease 15 or less: Kidney failureSouth [facility] Spine & Surgical HospitalGlucose Fthnq9814-43-80 07:28:00* Test Item Value Reference Range Interpretation Comments Glucose Level (test code = REK9573) 118 74-118 [facility] HospitalCalcium Lsqbg0412-18-05 07:28:00* Test Item Value Reference Range Interpretation Comments Calcium Level (test code = 45664-6) 8.5 8.4-10.2 [facility] HospitalTotal Yytcququi1951-08-96 07:28:00* Test Item Value Reference Range Interpretation Comments Total Bilirubin (test code = 1975-2) 0.5 0.2-1.2 [facility] HospitalAspartate Amino Transf (AST/SGOT) 2017-07-23 07:28:00* Test Item Value Reference Range Interpretation Comments Aspartate Amino Transf (AST/SGOT) (test code = Aspartate Amino Transf (AST/SGOT)) 13 5-34 [facility] HospitalAlanine Aminotransferase (ALT/SGPT) 2017-07-23 07:28:00* Test Item Value Reference Range Interpretation Comments Alanine Aminotransferase (ALT/SGPT) (test code = 1742-6) 20 0-55 [facility] HospitalTotal Nggehgy2026-29-86 07:28:00* Test Item Value Reference Range Interpretation Comments Total Protein (test code = 2885-2) 5.3 6.5-8.1 L [facility] HospitalAlbumin2018-05-03 07:28:00* Test Item Value Reference Range Interpretation Comments Albumin (test code = 1751-7) 2.5 3.5-5.0 L [facility] HospitalGlobulin2018-05-03 07:28:00* Test Item Value Reference Range Interpretation Comments Globulin (test code = 35658-0) 2.8 2.3-3.5 [facility] HospitalAlbumin/Globulin Luzdj9942-84-15 07:28:00 * Test Item Value Reference Range Interpretation Comments Albumin/Globulin Ratio (test code = 1759-0) 0.9 0.8-2.0 [facility] HospitalAlkaline Liscycygcyv5310-61-22 07:28:00* Test Item Value Reference Range Interpretation Comments Alkaline Phosphatase (test code = 6768-6) 60 40-150 [facility] HospitalB-Type Natriuretic Hgcvyif0506-20-29 10:39:00* Test Item Value Reference Range Interpretation Comments B-Type Natriuretic Peptide (test code = 35494-3) 63.7 0-100 [facility] HospitalB-Type Natriuretic Dgvabbf4855-75-65 10:39:00* Test Item Value Reference Range Interpretation Comments B-Type Natriuretic Peptide (test code = 05114-8) 63.7 0-100 [facility] HospitalReactive Xrmarrqocjt1907-02-06 08:17:00* Test Item Value Reference Range Interpretation Comments Reactive Lymphocytes (test code = 89457-1) 3 [facility] HospitalReactive Skrqsiocirx1724-05-65 08:17:00* Test Item Value Reference Range Interpretation Comments Reactive Lymphocytes (test code = 96848-4) 3 [facility] HospitalCreatine Kinase II2587-36-63 00:53:00* Test Item Value Reference Range Interpretation Comments Creatine Kinase MB (test code = 99108-3) 0.80 0-5.0 [facility] HospitalTroponin I4375-47-79 00:53:00* Test Item Value Reference Range Interpretation Comments Troponin I (test code = XVB7152) 0.065 0-0.300 [facility] HospitalCreatine Kinase OV4253-58-81 00:53:00* Test Item Value Reference Range Interpretation Comments Creatine Kinase MB (test code = 76311-6) 0.80 0-5.0 [facility] HospitalTroponin E5195-21-81 00:53:00* Test Item Value Reference Range Interpretation Comments Troponin I (test code = AWL1601) 0.065 0-0.300 [facility] HospitalCreatine Gtrmih1603-72-37 00:44:00* Test Item Value Reference Range Interpretation Comments Creatine Kinase (test code = 2157-6) 32 29-168 [facility] HospitalCreatine Ffuupz8441-94-97 00:44:00* Test Item Value Reference Range Interpretation Comments Creatine Kinase (test code = 2157-6) 32 29-168 [facility] HospitalFree Thyroxine Xqnao0980-34-53 09:42:00* Test Item Value Reference Range Interpretation Comments Free Thyroxine Index (test code = 04798-5) 2.7760 1.4-3.8 [facility] HospitalThyroxine (T4)2017-07-19 09:42:00* Test Item Value Reference Range Interpretation Comments Thyroxine (T4) (test code = 3026-2) 7.35 4.5-10.9 Our current method for Total T4 is not recommended for use as the only marker fo r evaluating patients for thyroid disorders.[facility] HospitalTriiodothyronine (T3) Hoocye8444-29-25 09:42:00* Test Item Value Reference Range Interpretation Comments Triiodothyronine (T3) Uptake (test code = 3050-2) 37.77 22.5 -37.0 H [facility] HospitalThyroid Stimulating Hormone (TSH) 2017-07-19 09:42:00* Test Item Value Reference Range Interpretation Comments Thyroid Stimulating Hormone (TSH) (test code = 13351-0) 0.158 0.350-4.940 L [facility] HospitalFree Thyroxine Xwdxs8887-80-23 09:42:00* Test Item Value Reference Range Interpretation Comments Free Thyroxine Index (test code = 23548-1) 2.7760 1.4-3.8 [facility] HospitalThyroxine (T4)2017-07-19 09:42:00* Test Item Value Reference Range Interpretation Comments Thyroxine (T4) (test code = 3026-2) 7.35 4.5-10.9 Our current method for Total T4 is not recommended for use as the only marker fo r evaluating patients for thyroid disorders.[facility] HospitalTriiodothyronine (T3) Yhcxcg0411-14-20 09:42:00* Test Item Value Reference Range Interpretation Comments Triiodothyronine (T3) Uptake (test code = 3050-2) 37.77 22.5 -37.0 H [facility] HospitalThyroid Stimulating Hormone (TSH) 2017-07-19 09:42:00* Test Item Value Reference Range Interpretation Comments Thyroid Stimulating Hormone (TSH) (test code = 66608-7) 0.158 0.350-4.940 L [facility] HospitalLactic Acid Vdkdv9547-84-40 09:17:00* Test Item Value Reference Range Interpretation Comments Lactic Acid Level (test code = Lactic Acid Level) 8.8 4.5- 19.8 [facility] HospitalProthrombin Apqu9031-46-07 19:34:00* Test Item Value Reference Range Interpretation Comments Prothrombin Time (test code = 5902-2) 13.0 11.9-14.5 [facility] HospitalProthromb Time International Ratio 2017-07-18 19:34:00* Test Item Value Reference Range Interpretation Comments Prothromb Time International Ratio (test code = 6301-6) 1.06 Oral Anticoagulant Therapy INR Values:1. Low Intensity Therapy 1.5 - 2.02 . Moderate Intensity Therapy 2.0 - 3.03. High Intensity Therapy(1) 2.5 - 3. 54. High Intensity Therapy(2) 3.0 - 4.05. Panic Value INR > 5.0 [facility] HospitalActivated Partial Thromboplast Time 2017-07-18 19:34:00* Test Item Value Reference Range Interpretation Comments Activated Partial Thromboplast Time (test code = 90938-0) 21.6 23.8-35.5 L [facility] HospitalActivated Partial Thromboplast Time 2017-07-18 19:34:00* Test Item Value Reference Range Interpretation Comments Activated Partial Thromboplast Time (test code = 79503-7) 21.6 23.8-35.5 L [facility] Renaissanceodium Cliob5611-68-50 07:27:00* Test Item Value Reference Range Interpretation Comments Sodium Level (test code = 2951-2) 136 136-145 [facility] HospitalPotassium Zxdei4175-91-57 07:27:00* Test Item Value Reference Range Interpretation Comments Potassium Level (test code = 2823-3) 3.6 3.5-5.1 [facility] HospitalChloride Vnluc2459-60-18 07:27:00* Test Item Value Reference Range Interpretation Comments Chloride Level (test code = 2075-0) 99 98-107 [facility] HospitalCarbon Dioxide Iikhy4096-79-87 07:27:00* Test Item Value Reference Range Interpretation Comments Carbon Dioxide Level (test code = 2028-9) 25 22-29 [facility] HospitalAnion Bog5873-51-28 07:27:00* Test Item Value Reference Range Interpretation Comments Anion Gap (test code = 20283-7) 15.6 8-16 [facility] HospitalBlood Urea Kailcchk9615-81-47 07:27:00* Test Item Value Reference Range Interpretation Comments Blood Urea Nitrogen (test code = 3094-0) 60 7-26 H [facility] HospitalCreatinine2018-04-26 07:27:00* Test Item Value Reference Range Interpretation Comments Creatinine (test code = 2160-0) 2.72 0.57-1.11 H [facility] HospitalBUN/Creatinine Hrsjj8171-04-17 07:27:00* Test Item Value Reference Range Interpretation Comments BUN/Creatinine Ratio (test code = 3097-3) 22 6-25 [facility] HospitalEstimat Glomerular Filtration Rate 2017-07-16 07:27:00* Test Item Value Reference Range Interpretation Comments Estimat Glomerular Filtration Rate (test code = 38103-8) 18 >60 L Ranges were taken from the National Kidney Disease Education Program and the [facility] Foundation literature.Reference ranges:60 or greater: Lalanp12-60 ( for 3 consecutive months): Chronic kidney disease 15 or less: Kidney failureSouth [facility] Spine & Surgical HospitalGlucose Uevct6661-35-06 07:27:00* Test Item Value Reference Range Interpretation Comments Glucose Level (test code = HQU1305) 219 74-118 H [facility] HospitalCalcium Tuyuf8719-58-54 07:27:00* Test Item Value Reference Range Interpretation Comments Calcium Level (test code = 14456-3) 9.3 8.4-10.2 [facility] HospitalTotal Ijzryrpsu8763-67-62 07:27:00* Test Item Value Reference Range Interpretation Comments Total Bilirubin (test code = 1975-2) 0.4 0.2-1.2 [facility] HospitalAspartate Amino Transf (AST/SGOT) 2017-07-16 07:27:00* Test Item Value Reference Range Interpretation Comments Aspartate Amino Transf (AST/SGOT) (test code = Aspartate Amino Transf (AST/SGOT)) 10 5-34 [facility] HospitalAlanine Aminotransferase (ALT/SGPT) 2017-07-16 07:27:00* Test Item Value Reference Range Interpretation Comments Alanine Aminotransferase (ALT/SGPT) (test code = 1742-6) 14 0-55 [facility] HospitalTotal Ekbjzeg5577-02-58 07:27:00* Test Item Value Reference Range Interpretation Comments Total Protein (test code = 2885-2) 6.6 6.5-8.1 [facility] HospitalAlbumin2018-04-26 07:27:00* Test Item Value Reference Range Interpretation Comments Albumin (test code = 1751-7) 2.8 3.5-5.0 L [facility] HospitalGlobulin2018-04-26 07:27:00* Test Item Value Reference Range Interpretation Comments Globulin (test code = 92712-6) 3.8 2.3-3.5 H [facility] HospitalAlbumin/Globulin Ubhln2177-03-02 07:27:00 * Test Item Value Reference Range Interpretation Comments Albumin/Globulin Ratio (test code = 1759-0) 0.7 0.8-2.0 L [facility] HospitalAlkaline Pxhqmmstacu7511-14-35 07:27:00* Test Item Value Reference Range Interpretation Comments Alkaline Phosphatase (test code = 6768-6) 71 40-150 [facility] HospitalMagnesium Swbfp3098-69-03 07:10:00* Test Item Value Reference Range Interpretation Comments Magnesium Level (test code = 75139-5) 1.6 1.3-2.1 [facility] HospitalWhite Blood Vgjjm5922-71-16 07:00:00* Test Item Value Reference Range Interpretation Comments White Blood Count (test code = 6690-2) 15.90 4.8-10.8 H [facility] HospitalRed Blood Qfstp3692-79-19 07:00:00* Test Item Value Reference Range Interpretation Comments Red Blood Count (test code = 789-8) 4.06 3.6-5.1 [facility] HospitalHemoglobin2018-04-26 07:00:00* Test Item Value Reference Range Interpretation Comments Hemoglobin (test code = 55376-8) 10.9 12.0-16.0 L [facility] HospitalHematocrit2018-04-26 07:00:00* Test Item Value Reference Range Interpretation Comments Hematocrit (test code = 4544-3) 32.8 34.2-44.1 L [facility] HospitalMean Corpuscular Yexdfk5652-97-46 07:00:00* Test Item Value Reference Range Interpretation Comments Mean Corpuscular Volume (test code = 787-2) 80.8 81-99 L [facility] HospitalMean Corpuscular Lbidnqyolr1758-28-87 07:00:00* Test Item Value Reference Range Interpretation Comments Mean Corpuscular Hemoglobin (test code = 785-6) 26.8 28-32 L [facility] HospitalMean Corpuscular Hemoglobin Concent 2017-07-16 07:00:00* Test Item Value Reference Range Interpretation Comments Mean Corpuscular Hemoglobin Concent (test code = 786-4) 33.2 31-35 [facility] HospitalRed Cell Distribution Gkpyd0134-05-26 07:00:00* Test Item Value Reference Range Interpretation Comments Red Cell Distribution Width (test code = 91485-0) 14.2 11.7 -14.4 [facility] HospitalPlatelet Bzqfj5804-49-61 07:00:00* Test Item Value Reference Range Interpretation Comments Platelet Count (test code = 777-3) 574 140-360 H [facility] HospitalNeutrophils (%) (Auto)2017-07-16 07:00:00 * Test Item Value Reference Range Interpretation Comments Neutrophils (%) (Auto) (test code = 44575-0) 88.6 38.7-80.0 H [facility] HospitalLymphocytes (%) (Auto)2017-07-16 07:00:00 * Test Item Value Reference Range Interpretation Comments Lymphocytes (%) (Auto) (test code = 736-9) 8.2 18.0-39.1 L [facility] HospitalMonocytes (%) (Auto)2017-07-16 07:00:00* Test Item Value Reference Range Interpretation Comments Monocytes (%) (Auto) (test code = 5905-5) 2.5 4.4-11.3 L [facility] HospitalEosinophils (%) (Auto)2017-07-16 07:00:00 * Test Item Value Reference Range Interpretation Comments Eosinophils (%) (Auto) (test code = 713-8) 0.0 0.0-6.0 [facility] HospitalBasophils (%) (Auto)2017-07-16 07:00:00* Test Item Value Reference Range Interpretation Comments Basophils (%) (Auto) (test code = 706-2) 0.1 0.0-1.0 [facility] HospitalIM GRANULOCYTES %2017-07-16 07:00:00* Test Item Value Reference Range Interpretation Comments IM GRANULOCYTES % (test code = IM GRANULOCYTES %) 0.6 0.0- 1.0 [facility] HospitalNeutrophils # (Auto)2017-07-16 07:00:00* Test Item Value Reference Range Interpretation Comments Neutrophils # (Auto) (test code = 751-8) 14.1 2.1-6.9 H [facility] HospitalLymphocytes # (Auto)2017-07-16 07:00:00* Test Item Value Reference Range Interpretation Comments Lymphocytes # (Auto) (test code = 66014-3) 1.3 1.0-3.2 [facility] HospitalMonocytes # (Auto)2017-07-16 07:00:00* Test Item Value Reference Range Interpretation Comments Monocytes # (Auto) (test code = 742-7) 0.4 0.2-0.8 [facility] HospitalEosinophils # (Auto)2017-07-16 07:00:00* Test Item Value Reference Range Interpretation Comments Eosinophils # (Auto) (test code = 711-2) 0.0 0.0-0.4 [facility] HospitalBasophils # (Auto)2017-07-16 07:00:00* Test Item Value Reference Range Interpretation Comments Basophils # (Auto) (test code = 704-7) 0.0 0.0-0.1 [facility] HospitalAbsolute Immature Granulocyte (auto 2017-07-16 07:00:00* Test Item Value Reference Range Interpretation Comments Absolute Immature Granulocyte (auto (ortega t code = Absolute Immature Granulocyte (auto) 0.09 0-0.1 [facility] HospitalB-Type Natriuretic Mttmahx4102-46-35 10:31:00* Test Item Value Reference Range Interpretation Comments B-Type Natriuretic Peptide (test code = 50540-9) 91.0 0-100 [facility] HospitalBlood Ppkhstr3313-50-20 16:57:00* Test Item Value Reference Range Interpretation Comments Blood Culture (test code = 10657381) NO GROWTH AFTER 5 DAYS, FINAL REPORT [facility] HospitalCreatine Kinase [id number] 08:00:00* Test Item Value Reference Range Interpretation Comments Creatine Kinase MB (test code = 99985-6) 0.30 0-5.0 [facility] HospitalTrmusc [facility]ern V7605-06-24 08:00:00* Test Item Value Reference Range Interpretation Comments Troponin I (test code = MBZ5877) 0.011 0-0.300 [facility] HospitalCreatine Xyfwme0836-29-52 07:31:00* Test Item Value Reference Range Interpretation Comments Creatine Kinase (test code = 2157-6) 29 29-168 [facility] Eiwifpp2798-15-68 21:32:00* Test Item Value Reference Range Interpretation Comments Bedside Glucose (test code = 17470-3) 82 70-120 Meter ID: [id number] [facility] Glucose 2016-12-23 21:32:00* Test Item Value Reference Range Interpretation Comments Bedside Glucose (test code = 55339-1) 82 70-120 Meter ID: [id number] [facility] Glucose 2016-12-23 21:32:00* Test Item Value Reference Range Interpretation Comments Bedside Glucose (test code = 57145-0) 82 70-120 Meter ID: [id number] [place] [facility] HospitalCreatine Kinase MB 2016-12-22 15:42:00* Test Item Value Reference Range Interpretation Comments Creatine Kinase MB (test code = 04612-5) 0.50 0.00-5.00 [place] [address]2017-10-02 15:42:00* Test Item Value Reference Range Interpretation Comments Troponin I (test code = QKJ6189) 0.010 0-0.300 [facility] Renaissanceodium Yaica9598-42-21 15:34:00* Test Item Value Reference Range Interpretation Comments Sodium Level (test code = 2951-2) 138 136-145 [facility] HospitalPotassium Xsemf2250-78-86 15:34:00* Test Item Value Reference Range Interpretation Comments Potassium Level (test code = 2823-3) 3.9 3.5-5.1 [facility] HospitalChloride Zhwye0242-81-17 15:34:00* Test Item Value Reference Range Interpretation Comments Chloride Level (test code = 2075-0) 104 98-107 [facility] HospitalCarbon Dioxide Hiutw2945-01-40 15:34:00* Test Item Value Reference Range Interpretation Comments Carbon Dioxide Level (test code = 2028-9) 25 22-29 [facility] HospitalAnion Okj1795-63-95 15:34:00* Test Item Value Reference Range Interpretation Comments Anion Gap (test code = 31125-9) 12.9 8-16 [facility] HospitalBlood Urea Gwhcnoxv0861-33-27 15:34:00* Test Item Value Reference Range Interpretation Comments Blood Urea Nitrogen (test code = 3094-0) 34 7-26 H [facility] HospitalCreatinine2017-10-02 15:34:00* Test Item Value Reference Range Interpretation Comments Creatinine (test code = 2160-0) 2.03 0.57-1.11 H [facility] [place] [facility] HospitalBUN/Creatinine Phopi2076-90-69 15:34:00* Test Item Value Reference Range Interpretation Comments BUN/Creatinine Ratio (test code = 3097-3) 17 6-25 [facility] HospitalEstimat Glomerular Filtration Rate 2016-12-22 15:34:00* Test Item Value Reference Range Interpretation Comments Estimat Glomerular Filtration Rate (test code = 29658-1) 25 >60 L Ranges were taken from the National Kidney Disease Education Program and the [facility] [employer] literature.Reference ranges:60 or greater: Mapzrh46-17 ( for 3 consecutive months): Chronic kidney disease 15 or less: Kidney failureSouth [facility] Spine & Surgical HospitalGlucose Gmmcg4698-10-55 15:34:00* Test Item Value Reference Range Interpretation Comments Glucose Level (test code = LDD2758) 116 74-118 [facility] HospitalCalcium Vndvo0831-49-47 15:34:00* Test Item Value Reference Range Interpretation Comments Calcium Level (test code = 54875-9) 9.3 8.4-10.2 [facility] HospitalTotal Hkiyhhuat8022-35-97 15:34:00* Test Item Value Reference Range Interpretation Comments Total Bilirubin (test code = 1975-2) 0.3 0.2-1.2 [facility] HospitalAspartate Amino Transf (AST/SGOT) 2016-12-22 15:34:00* Test Item Value Reference Range Interpretation Comments Aspartate Amino Transf (AST/SGOT) (test code = Aspartate Amino Transf (AST/SGOT)) 19 5-34 [facility] HospitalAlanine Aminotransferase (ALT/SGPT) 2016-12-22 15:34:00* Test Item Value Reference Range Interpretation Comments Alanine Aminotransferase (ALT/SGPT) (test code = 1742-6) 21 0-55 [facility] Wwiufjl8329-22-76 15:34:00* Test Item Value Reference Range Interpretation Comments Total Protein (test code = 2885-2) 7.4 6.5-8.1 [facility] HospitalAlbumin2017-10-02 15:34:00* Test Item Value Reference Range Interpretation Comments Albumin (test code = 1751-7) 3.1 3.5-5.0 L [facility] HospitalGlobulin2017-10-02 15:34:00* Test Item Value Reference Range Interpretation Comments Globulin (test code = 99820-9) 4.3 2.3-3.5 H [facility] HospitalAlbumin/Globulin Veosg5078-47-04 15:34:00 * Test Item Value Reference Range Interpretation Comments Albumin/Globulin Ratio (test code = 1759-0) 0.7 0.8-2.0 L [facility] HospitalAlkaline Aelhsimenil5572-13-22 15:34:00* Test Item Value Reference Range Interpretation Comments Alkaline Phosphatase (test code = 6768-6) 101 40-150 [facility] HospitalCreatine Kyznrv2595-00-10 15:34:00* Test Item Value Reference Range Interpretation Comments Creatine Kinase (test code = 2157-6) 33 29-168 [facility] HospitalProthrombin Tbrf3821-49-57 15:23:00* Test Item Value Reference Range Interpretation Comments Prothrombin Time (test code = 5902-2) 12.7 11.9-14.5 [facility] HospitalProthromb Time International Ratio 2016-12-22 15:23:00* Test Item Value Reference Range Interpretation Comments Prothromb Time International Ratio (test code = 6301-6) 0.91 Oral Anticoagulant Therapy INR Values:1. Low Intensity Therapy 1.5 - 2.02 . Moderate Intensity Therapy 2.0 - 3.03. High Intensity Therapy(1) 2.5 - 3. 54. High Intensity Therapy(2) 3.0 - 4.05. Panic Value INR > 5.0 [facility] HospitalActivated Partial Thromboplast Time 2016-12-22 15:23:00* Test Item Value Reference Range Interpretation Comments Activated Partial Thromboplast Time (test code = 59412-9) 45.2 23.8-35.5 H [facility] HospitalProthrombin Wdyk5169-17-92 15:23:00* Test Item Value Reference Range Interpretation Comments Prothrombin Time (test code = 5902-2) 12.7 11.9-14.5 [facility] HospitalProthromb Time International Ratio 2016-12-22 15:23:00* Test Item Value Reference Range Interpretation Comments Prothromb Time International Ratio (test code = 6301-6) 0.91 Oral Anticoagulant Therapy INR Values:1. Low Intensity Therapy 1.5 - 2.02 . Moderate Intensity Therapy 2.0 - 3.03. High Intensity Therapy(1) 2.5 - 3. 54. High Intensity Therapy(2) 3.0 - 4.05. Panic Value INR > 5.0 [facility] HospitalActivated Partial Thromboplast Time 2016-12-22 15:23:00* Test Item Value Reference Range Interpretation Comments Activated Partial Thromboplast Time (test code = 90817-8) 45.2 23.8-35.5 H [facility] HospitalUrine [id number] 15:21:00* Test Item Value Reference Range Interpretation Comments Urine WBC (test code = 5821-4) 6-10 0-5 H [facility] HospitalUrine OVF3988-12-35 15:21:00* Test Item Value Reference Range Interpretation Comments Urine RBC (test code = 56267-0) 6-10 0-5 H [facility] HospitalUrine Utczdjjk6528-19-67 15:21:00* Test Item Value Reference Range Interpretation Comments Urine Bacteria (test code = 05923-2) MODERATE NONE H [facility] HospitalUrine Epithelial Ohnbf8347-37-53 15:21:00 * Test Item Value Reference Range Interpretation Comments Urine Epithelial Cells (test code = 28223-9) MANY NONE [facility] Transitional Epithelial Cells 2016-12-22 15:21:00* Test Item Value Reference Range Interpretation Comments Urine Transitional Epithelial Cells (test code = 8249-5) FEW NONE H [facility] HospitalUrine Renal Epithelial Tfrnj8108-38-98 15:21:00* Test Item Value Reference Range Interpretation Comments Urine Renal Epithelial Cells (test code = 92077-5) FEW NON E H [facility] HospitalUrine Hyaline Aeeih3722-02-12 15:21:00* Test Item Value Reference Range Interpretation Comments Urine Hyaline Casts (test code = 50657-9) 0-1 0-1 [facility] HospitalUrine RIU9845-79-83 15:21:00* Test Item Value Reference Range Interpretation Comments Urine WBC (test code = 5821-4) 6-10 0-5 H [facility] HospitalUrine GXG8559-04-99 15:21:00* Test Item Value Reference Range Interpretation Comments Urine RBC (test code = 96716-0) 6-10 0-5 H [facility] HospitalUrine Ocwceecj5518-20-69 15:21:00* Test Item Value Reference Range Interpretation Comments Urine Bacteria (test code = 02580-6) MODERATE NONE H [facility] HospitalUrine Epithelial Najws5526-50-31 15:21:00 * Test Item Value Reference Range Interpretation Comments Urine Epithelial Cells (test code = 68048-8) MANY NONE [facility] HospitalUrine Transitional Epithelial Cells 2016-12-22 15:21:00* Test Item Value Reference Range Interpretation Comments Urine Transitional Epithelial Cells (test code = 8249-5) FEW NONE H [facility] HospitalUrine Renal Epithelial Rsbny0097-46-69 15:21:00* Test Item Value Reference Range Interpretation Comments Urine Renal Epithelial Cells (test code = 39489-1) FEW NON E H [facility] HospitalUrine Hyaline Jfnae1817-21-74 15:21:00* Test Item Value Reference Range Interpretation Comments Urine Hyaline Casts (test code = 76911-5) 0-1 0-1 [facility] HospitalUrine RVA2898-91-03 15:21:00* Test Item Value Reference Range Interpretation Comments Urine WBC (test code = 5821-4) 6-10 0-5 H [facility] HospitalUrine IFA1085-63-83 15:21:00* Test Item Value Reference Range Interpretation Comments Urine RBC (test code = 38389-1) 6-10 0-5 H [facility] HospitalUrine Piotifik7923-74-84 15:21:00* Test Item Value Reference Range Interpretation Comments Urine Bacteria (test code = 43161-5) MODERATE NONE H [facility] HospitalUrine Epithelial Gbbba8991-25-38 15:21:00 * Test Item Value Reference Range Interpretation Comments Urine Epithelial Cells (test code = 14931-4) MANY NONE [facility] HospitalUrine Transitional Epithelial Cells 2016-12-22 15:21:00* Test Item Value Reference Range Interpretation Comments Urine Transitional Epithelial Cells (test code = 8249-5) FEW NONE H [facility] HospitalUrine Renal Epithelial Ftsex8122-71-44 15:21:00* Test Item Value Reference Range Interpretation Comments Urine Renal Epithelial Cells (test code = 83461-0) FEW NON E H [facility] HospitalUrine Hyaline Iotmi3107-56-33 15:21:00* Test Item Value Reference Range Interpretation Comments Urine Hyaline Casts (test code = 27880-9) 0-1 0-1 [facility] HospitalWhite Blood Ukqhv3579-06-25 15:14:00* Test Item Value Reference Range Interpretation Comments White Blood Count (test code = 6690-2) 13.82 4.8-10.8 H [facility] HospitalRed Blood Wdixe5668-54-55 15:14:00* Test Item Value Reference Range Interpretation Comments Red Blood Count (test code = 789-8) 4.16 3.6-5.1 [facility] HospitalHemoglobin2017-10-02 15:14:00* Test Item Value Reference Range Interpretation Comments Hemoglobin (test code = 26258-8) 11.0 12.0-16.0 L [facility] HospitalHematocrit2017-10-02 15:14:00* Test Item Value Reference Range Interpretation Comments Hematocrit (test code = 4544-3) 34.8 34.2-44.1 [facility] HospitalMean Corpuscular Copbyd4173-20-33 15:14:00* Test Item Value Reference Range Interpretation Comments Mean Corpuscular Volume (test code = 787-2) 83.7 81-99 [facility] HospitalMean Corpuscular Uxnuqsqfmt2578-87-49 15:14:00* Test Item Value Reference Range Interpretation Comments Mean Corpuscular Hemoglobin (test code = 785-6) 26.4 28-32 L [facility] HospitalMean Corpuscular Hemoglobin Concent 2016-12-22 15:14:00* Test Item Value Reference Range Interpretation Comments Mean Corpuscular Hemoglobin Concent (test code = 786-4) 31.6 31-35 [facility] HospitalRed Cell Distribution Cgbwd7819-50-45 15:14:00* Test Item Value Reference Range Interpretation Comments Red Cell Distribution Width (test code = 34424-9) 16.4 11.7 -14.4 H [facility] HospitalPlatelet Rakxs4632-30-05 15:14:00* Test Item Value Reference Range Interpretation Comments Platelet Count (test code = 777-3) 497 140-360 H [facility] HospitalNeutrophils (%) (Auto)2016-12-22 15:14:00 * Test Item Value Reference Range Interpretation Comments Neutrophils (%) (Auto) (test code = 11003-9) 59.3 38.7-80.0 [facility] HospitalLymphocytes (%) (Auto)2016-12-22 15:14:00 * Test Item Value Reference Range Interpretation Comments Lymphocytes (%) (Auto) (test code = 736-9) 30.1 18.0-39.1 [facility] HospitalMonocytes (%) (Auto)2016-12-22 15:14:00* Test Item Value Reference Range Interpretation Comments Monocytes (%) (Auto) (test code = 5905-5) 7.8 4.4-11.3 [facility] HospitalEosinophils (%) (Auto)2016-12-22 15:14:00 * Test Item Value Reference Range Interpretation Comments Eosinophils (%) (Auto) (test code = 713-8) 1.7 0.0-6.0 [facility] HospitalBasophils (%) (Auto)2016-12-22 15:14:00* Test Item Value Reference Range Interpretation Comments Basophils (%) (Auto) (test code = 706-2) 0.7 0.0-1.0 [facility] HospitalIM GRANULOCYTES %2016-12-22 15:14:00* Test Item Value Reference Range Interpretation Comments IM GRANULOCYTES % (test code = IM GRANULOCYTES %) 0.4 0.0- 1.0 [facility] HospitalNeutrophils # (Auto)2016-12-22 15:14:00* Test Item Value Reference Range Interpretation Comments Neutrophils # (Auto) (test code = 751-8) 8.2 2.1-6.9 H [facility] [place] [facility] HospitalLymphocytes # (Auto)2016-12-22 15:14:00* Test Item Value Reference Range Interpretation Comments Lymphocytes # (Auto) (test code = 66321-3) 4.2 1.0-3.2 H [facility] HospitalMonocytes # (Auto)2016-12-22 15:14:00* Test Item Value Reference Range Interpretation Comments Monocytes # (Auto) (test code = 742-7) 1.1 0.2-0.8 H [facility] HospitalEosinophils # (Auto)2016-12-22 15:14:00* Test Item Value Reference Range Interpretation Comments Eosinophils # (Auto) (test code = 711-2) 0.2 0.0-0.4 [facility] HospitalBasophils # (Auto)2016-12-22 15:14:00* Test Item Value Reference Range Interpretation Comments Basophils # (Auto) (test code = 704-7) 0.1 0.0-0.1 [facility] HospitalAbsolute Immature Granulocyte (auto 2016-12-22 15:14:00* Test Item Value Reference Range Interpretation Comments Absolute Immature Granulocyte (auto (ortega t code = Absolute Immature Granulocyte (auto) 0.05 0-0.1 [facility] HospitalUrine Ypymb3312-46-80 15:01:00* Test Item Value Reference Range Interpretation Comments Urine Color (test code = 5778-6) YELLOW YELLOW [facility] HospitalUrine Cbrjgdr9316-85-08 15:01:00* Test Item Value Reference Range Interpretation Comments Urine Clarity (test code = 84048-7) HAZY CLEAR [facility] HospitalUrine Specific Jakplvy7131-31-54 15:01:00 * Test Item Value Reference Range Interpretation Comments Urine Specific [place] (test code = 5811-5) 1.015 1.010-1.02 5 [facility] HospitalUrine [id number] 15:01:00* Test Item Value Reference Range Interpretation Comments Urine pH (test code = 27224-0) 5 5-7 [facility] HospitalUrine Leukocyte Rhgsrkhw9314-53-01 15:01:00* Test Item Value Reference Range Interpretation Comments Urine Leukocyte Esterase (test code = 5799-2) TRACE NEGATIVE H [facility] HospitalUrine Rwhtzzl8856-61-63 15:01:00* Test Item Value Reference Range Interpretation Comments Urine Nitrite (test code = 76434-8) NEGATIVE NEGATIVE [facility] HospitalUrine Xfgzkel6844-57-38 15:01:00* Test Item Value Reference Range Interpretation Comments Urine Protein (test code = 5804-0) 3+ NEGATIVE H [facility] [place] [facility] HospitalUrine Glucose (UA)2016-12-22 15:01:00* Test Item Value Reference Range Interpretation Comments Urine Glucose (UA) (test code = 2349-9) NEGATIVE NEGATIVE [facility] HospitalUrine Fzokhxk5155-66-04 15:01:00* Test Item Value Reference Range Interpretation Comments Urine Ketones (test code = 44760-4) NEGATIVE NEGATIVE [facility] HospitalUrine Mwzfrjfztpyx6666-67-99 15:01:00* Test Item Value Reference Range Interpretation Comments Urine Urobilinogen (test code = 76645-0) 0.2 0.2-1 [facility] HospitalUrine Ogsoncbag0244-22-34 15:01:00* Test Item Value Reference Range Interpretation Comments Urine Bilirubin (test code = 1978-6) NEGATIVE NEGATIVE [facility] HospitalUrine Onsvx7710-83-73 15:01:00* Test Item Value Reference Range Interpretation Comments Urine Blood (test code = 14613-3) TRACE NEGATIVE H [facility] Sfglw7255-05-24 15:01:00* Test Item Value Reference Range Interpretation Comments Urine Color (test code = 5778-6) YELLOW YELLOW [facility] HospitalUrine Kbhhpzc5900-26-96 15:01:00* Test Item Value Reference Range Interpretation Comments Urine Clarity (test code = 75400-4) HAZY CLEAR [facility] HospitalUrine Specific Eipdpqa9117-00-72 15:01:00 * Test Item Value Reference Range Interpretation Comments Urine Specific [place] (test code = 5811-5) 1.015 1.010-1.02 5 [facility] HospitalUrine dU3946-18-20 15:01:00* Test Item Value Reference Range Interpretation Comments Urine pH (test code = 22490-0) 5 5-7 [facility] HospitalUrine Leukocyte Pacxpjdi7833-18-53 15:01:00* Test Item Value Reference Range Interpretation Comments Urine Leukocyte Esterase (test code = 5799-2) TRACE NEGATIVE H [facility] HospitalUrine Fppchbg8457-01-47 15:01:00* Test Item Value Reference Range Interpretation Comments Urine Nitrite (test code = 01676-9) NEGATIVE NEGATIVE [facility] HospitalUrine Boqqqff7270-10-89 15:01:00* Test Item Value Reference Range Interpretation Comments Urine Protein (test code = 5804-0) 3+ NEGATIVE H [facility] HospitalUrine Glucose (UA)2016-12-22 15:01:00* Test Item Value Reference Range Interpretation Comments Urine Glucose (UA) (test code = 2349-9) NEGATIVE NEGATIVE [facility] [id number] 15:01:00* Test Item Value Reference Range Interpretation Comments Urine Ketones (test code = 03694-7) NEGATIVE NEGATIVE [facility] Behlvoqeuwxv3554-10-50 15:01:00* Test Item Value Reference Range Interpretation Comments Urine Urobilinogen (test code = 79361-0) 0.2 0.2-1 [facility] [id number] 15:01:00* Test Item Value Reference Range Interpretation Comments Urine Bilirubin (test code = 1978-6) NEGATIVE NEGATIVE [facility] [id number] 15:01:00* Test Item Value Reference Range Interpretation Comments Urine Blood (test code = 10241-4) TRACE NEGATIVE H [facility] Nyttr4061-72-41 15:01:00* Test Item Value Reference Range Interpretation Comments Urine Color (test code = 5778-6) YELLOW YELLOW [facility] Edmqfxr3433-22-18 15:01:00* Test Item Value Reference Range Interpretation Comments Urine Clarity (test code = 38926-6) HAZY CLEAR [facility] Specific [id number] 15:01:00 * Test Item Value Reference Range Interpretation Comments Urine Specific [place] (test code = 5811-5) 1.015 1.010-1.02 5 [facility] [id number] 15:01:00* Test Item Value Reference Range Interpretation Comments Urine pH (test code = 59803-1) 5 5-7 [facility] Leukocyte Soatqwcv1706-53-38 15:01:00* Test Item Value Reference Range Interpretation Comments Urine Leukocyte Esterase (test code = 5799-2) [facility] [id number] 15:01:00* Test Item Value Reference Range Interpretation Comments Urine Nitrite (test code = 44404-9) NEGATIVE NEGATIVE [facility] Larlohn9290-60-00 15:01:00* Test Item Value Reference Range Interpretation Comments Urine Protein (test code = 5804-0) 3+ NEGATIVE H [facility] Glucose (UA)2016-12-22 15:01:00* Test Item Value Reference Range Interpretation Comments Urine Glucose (UA) (test code = 2349-9) NEGATIVE NEGATIVE [facility] Fwotsos2474-78-18 15:01:00* Test Item Value Reference Range Interpretation Comments Urine Ketones (test code = 15910-0) NEGATIVE NEGATIVE [facility] Gtpakjzhnmcq6072-84-47 15:01:00* Test Item Value Reference Range Interpretation Comments Urine Urobilinogen (test code = 52251-4) 0.2 0.2-1 [facility] Cbelzttbx9532-31-13 15:01:00* Test Item Value Reference Range Interpretation Comments Urine Bilirubin (test code = 1978-6) NEGATIVE NEGATIVE [facility] Hffhz3767-68-98 15:01:00* Test Item Value Reference Range Interpretation Comments Urine Blood (test code = 96221-6) TRACE NEGATIVE H [facility] [address] [address] Patient Name: GABBIE TOBIN MR #: [id number] : 1955 Age/Sex: 61/F Req #: [id number] Adm Physician: KYLEE ACOSTA MD Ordered by: USMAN MARIE, PAPO MARIE Report #: [id number] Location: MED/SURG3 Room/Bed: [facility] Procedure: [id number] CT/C T ABDOMEN WO Exam Date: 07/21/17 Exam Time: 1200 REPORT STATUS: Signed PROCEDURE: CT ABDOMEN WITHOUT CONTRAST COMPARIS ON: [facility], US, US RETROPERITONEAL ( KIDNEY )., 12/11/2015, 11:34. [facility], CT, CT ABDOMEN WO, 05/06/2015, 14:42. [...] COPY TO: PAPO MARY RENAL RETROPERITONEAL COMP [place] [address] Patient Name: GABBIE TOBIN MR #: [id number] : 1955 Age/Sex: 61/F Req #: [id number] [facility] Physician: KYLEE ACOSTA MD Ordered by: PINA RUCKER MD Report #: [id number] Location: MED/SURG3 Room/Bed: [facility] Procedure: [id number] US/U S RENAL RETROPERITONEAL COMP Exam Date: Exam Time: REPORT STATUS: Signed PROCEDURE: US RETROPERITONEAL ( KIDNEY ). COMPARISON: [facility], US, US RETROPERITONEAL ( KIDNEY )., 01/15/2016, [...] COPY TO: PINA RUCKER CHEST SINGLE (PORTABLE) [address] [place] [address] Patient Name: GABBIE TOBIN MR #: [id number] : 1955 Age/Sex: 61/F Req #: [id number] Adm Physician: Ordered by: IRIS MOREL MD Report #: [id number] Location: ER Room/Bed: Procedure: [id number] DX/CHEST SINGLE (PORTABLE) Exam Date: 07/18/17 Exam [...] 5:16 PM Dictated By: DEMETRIO TAYLOR MD [facility] Signed By: DEMETRIO TAYLOR MD on 07/18/171715 Transcribed By: ALEXIA on 07/18 COPY TO: IRIS MOREL MD CT ABDOMEN/PELVIS WO [address] [address] Patient Name: GABBIE TOBIN MR #: [id number] : Age/Sex: 61/F Req #: [id number] Adm Physician: KYLEE PONCE MD Ordered by: IRIS MOREL MD Report #: [id number] Location: [facility] Room/Bed: [address] [place] [address] Procedure: [id number] CT/CT ABDOMEN/PELVIS WO Exam Date: Exam Time: [...] is below the limits set by the [facility] Protocol Committee (RPC). FINDINGS: LINES: None. [...] TO: IRIS MOREL MD CHEST SINGLE (PORTABLE) [place] [address] Patient Name: GABBIE TOBIN MR #: [id number] : 1955 Age/Sex: 61/F Req #: [id number] Adm Physician: KYLEE ACOSTA MD Ordered by: CHU MCALLISTER MD Report #: [id number] Location: MED/SURG Room/Bed: [facility] Procedure: [id number] DX/C HEST SINGLE (PORTABLE) Exam Date: 07/15/17 [...] TO: CHU MCALLISTER MD CHEST SINGLE (PORTABLE) [place] [address] Patient Name: GABBIE TOBIN MR #: [id number] : Age/Sex: 61/F Req #: [id number] Adm Physician: KYLEE PONCE MD Ordered by: PINA RUCKER MD Report #: [id number] Location : MED/SURG2 Room/Bed: [facility] Procedure: [id number] DX/C HEST SINGLE (PORTABLE) Exam Date: 07/11/17 [...] RUCKER MD VQ LUNG SCAN VENT PERFUSION [address] [place] [address] Patient Name: GABBIE TOBIN MR #: [id number] : 1955 Age/Sex: 61/F Req #: [id number] Adm Physician: KYLEE ACOSTA MD Ordered by: KYLEE ACOSTA MD Report #: [id number] Location: MED/SURG2 Room/Bed: [facility] Procedure: [id number] MI/VQ LUNG SCAN VENT PERFUSION Exam Date: Exam [...] 12:01 AM Dictated By: LAURI SANTORO MD 57 Transcr ibed By: ALEXIA on 07/10/172357 COPY TO: KYLEE ACOSTA MD MRI BRAIN WO [place] [address] Patient Name: GABBIE TOBIN MR #: [id number] : 1955 Age/Sex: 61/F Req #: [id number] Adm Physician: KYLEE ACOSTA MD Ordered by: KYLEE ACOSTA MD Report #: [id number] Location: MED/SURG Room/Bed: [facility] Procedure: [id number] MRI/M RI BRAIN WO Exam Date: Exam [...] 3:40 PM Dictated By: CAN Ojeda MD 154 Transcri bed By: ALEXIA on 12/23/161539 COPY TO: KYLEE ACOSTA MD CT BRAIN WO [place] [address] Patient Name: GABBIE TOBIN MR #: [id number] : 1955 Age/Sex: 61/F Req #: [id number] Adm Physician: Ordered by: CAYETANO ORDONEZ MD Report #: [id number] Location: ER Room/Bed: Procedure: [id number] CT/CT BRAIN WO Exam Date: 05/09 Exam [...] 1516 Trans cribed By: ALEXIA on 12/22/16 1516 COPY TO: CAYETANO ORDONEZ MD
[2020-02-18 18:28] LABS: CREATINE KINASE MB 0.7 ng/mL (0-5.0); THYROID STIMULATING HORMONE 0.607 uIU/mL (0.350-4.940)
[2020-02-18] MEDS ORDERED: ASPIRIN 81 MG CHEW TAB PO ONE (18:30)
--- NOTE | 2020-02-18 18:40 | Diagnostic Imaging Report ---
EXAMINATION: CHEST SINGLE (PORTABLE) INDICATION: ^CP, SVT ^[id number] ^9251 COMPARISON: None FINDINGS: TUBES and LINES: Right Port-A-Cath which terminates at the distal cavoatrial junction. Left-sided internal jugular central venous catheter which terminates in the right atrium. LUNGS: Normal lung volumes. Lungs are clear. No consolidations. PLEURA: No pleural effusion or pneumothorax. HEART AND MEDIASTINUM: The cardiomediastinal silhouette is mildly enlarged. BONES AND SOFT TISSUES: No acute osseous lesion. Soft tissues are unremarkable. UPPER ABDOMEN: No free air under the diaphragm. IMPRESSION: 1. No acute thoracic radiographic abnormality. 2. Left internal jugular central venous catheter which now terminates in the right atrium. 3. Mild cardiomegaly. Signed by: Gera Rosado MD on 02/18/2020 6:36 PM
[2020-02-18] MEDS ORDERED: HYDRALAZINE HCL50 MG PO (18:45)
[2020-02-18] MEDS ORDERED: REGLAN10 MG PO (18:48)
[2020-02-18] MEDS ORDERED: B12 ACTIVE1000 MCG PO (18:52)
--- NOTE | 2020-02-18 19:22 | Emergency Department Note ---
History of Present Illnes History of Present Illness Chief Complaint: Chest Pain History of Present Illness This is a 64 year old female arrived to the ED with complaints of chest pain and palpitations. 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 Any updates have been documented here. Past Medical History Recent Fever: No Clinical Suspicion of Infectio: No New/Unexplained Change in Ment: No Past Medical History: Hypertension, COPD, [place], Cancer, Kidney Stones, UTI's, Anemia, Hyperlipedemia, Lupus Other Medical History: kidney cancer sleep apnea hemodialysis arthritis chronic bronchitis/sinusitis spinal stenosis lt ruptured avf Past Surgical History: Cholecysctectomy, Appendectomy, Hysterectomy Other Surgery: right nephrectomy spleenectomy tonsillectomy adenoidectomy Social History Smoking Cessation: Never Smoker Counseling Performed: No Alcohol Use: None Any Illegal Drug Use: No Other Last Tetanus: 2017 Any Pre-Existing Lines (PICC,: Yes (L/CW DIALYSIS PORT) Review of Systems Review of Systems Constitutional: Reports no symptoms EENTM: Reports no symptoms Cardiovascular: Reports as per HPI, Reports chest pain, Reports palpitations Respiratory: Reports no symptoms Gastrointestinal: Reports no symptoms Genitourinary: Reports no symptoms Musculoskeletal: Reports no symptoms Integumentary: Reports no symptoms Neurological: Reports no symptoms Psychological: Reports no symptoms Endocrine: Reports no symptoms Hematological/Lymphatic: Reports no symptoms Physical Exam Related Data Allergies: Coded Allergies: atorvastatin (Verified Allergy, Intermediate, itching and muscle cramps, 01/09/20) Penicillins (Verified Allergy, Unknown, 01/09/20) Sulfa (Sulfonamide Antibiotics) (Verified Allergy, Unknown, 01/09/20) albuterol (Verified Allergy, Unknown, 01/09/20) amoxicillin (Verified Allergy, Unknown, 01/09/20) cephalexin (Verified Allergy, Unknown, 01/09/20) cilastatin (Verified Allergy, Unknown, RASH, 01/09/20) RASH codeine (Verified Allergy, Unknown, 01/09/20) erythromycin base (Verified Allergy, Unknown, 01/09/20) gabapentin (Verified Allergy, Unknown, 01/09/20) imipenem (Verified Allergy, Unknown, RASH, 01/09/20) RASH meperidine (Verified Allergy, Unknown, 01/09/20) methocarbamol (Verified Allergy, Unknown, 01/09/20) morphine (Verified Allergy, Unknown, 01/09/20) tetracycline (Verified Allergy, Unknown, 01/09/20) lactose (Verified Adverse Reaction, Severe, 01/09/20) Pt is Lactose Intolerant. Uncoded Allergies: TAPE (Allergy, Mild, RASH, 04/17/09) Triage Vital Signs Vital Signs Date Time Temp Pulse Resp B/P (MAP) Pulse Ox O2 Delivery O2 Flow Rate FiO2 02/18/20 17:16 99.0 187 24 91/73 100 Room Air 02/18/20 17:50 2.0 Vital signs reviewed: Yes Physical Exam CONSTITUTIONAL Constitutional: Present well-developed, Present well-nourished HENT HENT: Present normocephalic, Present atraumatic, Present oropharynx clear/moist, Present nose normal HENT L/R: Present left ext ear normal, Present right ext ear normal EYES Eyes: Reports PERRL, Reports conjunctivae normal NECK Neck: Present ROM normal PULMONARY Pulmonary: Present effort normal, Present breath sounds normal CARDIOVASCULAR Cardiovascular: Present irregular rhythm, Present heart sounds normal, Present capillary refill normal, Present normal rate, Present tachycardia GASTROINTESTINAL Abdominal: Present soft, Present nontender, Present bowel sounds normal GENITOURINARY Genitourinary: Present exam deferred SKIN Skin: Present warm, Present dry MUSCULOSKELETAL Musculoskeletal: Present ROM normal NEUROLOGICAL Neurological: Present alert, Present oriented x 3, Present no gross motor or sensory deficits PSYCHOLOGICAL Psychological: Present mood/affect normal, Present judgement normal Results Laboratory Result Diagram: 02/18/20 1735 02/18/20 1735 Laboratory Laboratory Tests Test 02/18/20 18:03 02/18/20 17:35 White Blood Count 16.09 x10e3/uL (4.8-10.8) Red Blood Count 4.16 x10e6/uL (3.6-5.1) Hemoglobin 12.6 g/dL (12.0-16.0) Hematocrit 39.4 % (34.2-44.1) Mean Corpuscular Volume 94.7 fL (81-99) Mean Corpuscular Hemoglobin 30.3 pg (28-32) Mean Corpuscular Hemoglobin Concent 32.0 g/dL (31-35) Red Cell Distribution Width 16.5 % (11.7-14.4) Platelet Count 742 x10e3/uL (140-360) Neutrophils (%) (Auto) 46.2 % (38.7-80.0) Lymphocytes (%) (Auto) 44.1 % (18.0-39.1) Monocytes (%) (Auto) 7.1 % (4.4-11.3) Eosinophils (%) (Auto) 1.4 % (0.0-6.0) Basophils (%) (Auto) 0.7 % (0.0-1.0) Neutrophils # (Auto) 7.5 (2.1-6.9) Lymphocytes # (Auto) 7.1 (1.0-3.2) Monocytes # (Auto) 1.1 (0.2-0.8) Eosinophils # (Auto) 0.2 (0.0-0.4) Basophils # (Auto) 0.1 (0.0-0.1) Absolute Immature Granulocyte (auto 0.08 x10e3/uL (0-0.1) Prothrombin Time 13.2 seconds (11.9-14.5) Prothromb Time International Ratio 0.95 Activated Partial Thromboplast Time 32.6 seconds (23.8-35.5) Sodium Level 136 mmol/L (136-145) Potassium Level 3.7 mmol/L (3.5-5.1) Chloride Level 98 mmol/L (98-107) Carbon Dioxide Level 22 mmol/L (22-29) Anion Gap 19.7 mmol/L (8-16) Blood Urea Nitrogen 22 mg/dL (7-26) Creatinine 4.99 mg/dL (0.57-1.11) Estimat Glomerular Filtration Rate 9 ML/MIN (60-) BUN/Creatinine Ratio 4 (6-25) Glucose Level 155 mg/dL (74-118) Calcium Level 9.3 mg/dL (8.4-10.2) Magnesium Level 1.9 MG/DL (1.3-2.1) Total Bilirubin 0.3 mg/dL (0.2-1.2) Aspartate Amino Transf (AST/SGOT) 13 IU/L (5-34) Alanine Aminotransferase (ALT/SGPT) 10 IU/L (0-55) Alkaline Phosphatase 81 IU/L (40-150) Creatine Kinase 11 IU/L (29-168) Creatine Kinase MB 0.70 ng/mL (0-5.0) Troponin I 0.023 ng/mL (0-0.300) B-Type Natriuretic Peptide 119.7 pg/mL (0-100) Total Protein 7.7 g/dL (6.5-8.1) Albumin 3.2 g/dL (3.5-5.0) Globulin 4.5 g/dL (2.3-3.5) Albumin/Globulin Ratio 0.7 (0.8-2.0) Thyroid Stimulating Hormone (TSH) 0.607 uIU/mL (0.350-4.940) Imaging Imaging results reviewed: Yes Procedures 12 Lead ECG Interpretation ECG Interpretation : ECG: ECG 1 Rhythm: SVT QRS axis: left Clinical Impression: abnormal ECG Critical Care Time Total Critical Care Time (min): 45 Critical care time exclusive o: separately billable procedures Critcal care necessary due to: cardiac failure Assessment & Plan Medical Decision Making MDM 64 F arrived to the ED with chest pain and fast heart, pt noted to be in SVT, given adenosine 6mg with return to NSR. Assessment & Plan Final Impression: (1) SVT (supraventricular tachycardia) (2) Chest pain Depart Disposition: ADMITTED Last Vital Signs Date Time Temp Pulse Resp B/P (MAP) Pulse Ox O2 Delivery O2 Flow Rate FiO2 02/18/20 19:09 94 15 97 02/18/20 18:30 106/73 Nasal Cannula 2.0 02/18/20 17:16 99.0 Home Meds Reported Medications Mecobalamin (B12 Active) 1,000 Mcg Tab.chew, 1 TAB PO DAILY 02/18/20 Metoclopramide Hcl (REGLAN) 10 Mg Tablet, 10 MG PO ACB, #30 TAB 02/18/20 Hydralazine Hcl (HYDRALAZINE HCL) 50 Mg Tablet, 50 MG PO DAILY 02/18/20 Lactobac Cmb #3/Fos/Pantethine (PROBIOTIC & ACIDOPHILUS CAP) 1 Each Capsule, 1 CAP PO DAILY 01/09/20 Duloxetine Hcl (CYMBALTA) 30 Mg Capsule.dr, 30 MG PO DAILY, #30 CAP 01/09/20 Ezetimibe (ZETIA) 10 Mg Tablet, 10 MG PO DAILY@1700, #30 TAB 01/09/20 Apixaban (Eliquis) 5 Mg Tablet, 5 MG PO BID 01/09/20 Amiodarone Hcl (AMIODARONE HCL) 200 Mg Tablet, 200 MG PO DAILY 01/09/20 Metoprolol Succinate (METOPROLOL SUCCINATE) 25 Mg Tab.er.24h, 12.5 MG PO DAILY TAKE 1/2 TABLET DAILY 01/09/20 Dicyclomine Hcl (DICYCLOMINE HCL) 10 Mg Capsule, 10 MG PO BID 05/13/19 Hydromorphone Hcl (DILAUDID) 2 Mg Tab, 4 MG PO Q8H PRN for MODERATE PAIN (4-6) 05/23/18 [Repatha] 1 SYR No Conflict Check, 140 MG SC Q OTHER Thursday03/14/18 Ondansetron Hcl (ZOFRAN) 8 Mg Tablet, 4 MG PO Q4HR PRN for NAUSEA AND VOMITING 03/03/18 Clopidogrel Bisulfate* (PLAVIX) 75 Mg Tablet, 75 MG PO DAILY, #30 TAB 03/03/18 Hydroxyzine Hcl (HYDROXYZINE HCL) 25 Mg Tablet, 25 MG PO BID PRN for ITCHING, #30 TAB 03/03/18 Clonidine Hcl (CLONIDINE HCL) 0.1 Mg Tablet, 1 TAB PO Q6H PRN for HIGH BLOOD PRESSURE, #60 TAB take for SBP > 170 07/09/17 Nitroglycerin (NITROGLYCERIN) 0.4 Mg Tab.subl, 0.4 MG SL Q5MIN PRN for chest pain, TAB 05/11/16 Alprazolam (ALPRAZOLAM) 1 Mg Tablet, 1 MG PO TID for anxiety, TAB 08/28/14 Trazodone Hcl (TRAZODONE HCL) 100 Mg Tablet, 400 MG PO HS 08/04/12 Discontinued Reported Medications Midodrine Hcl (MIDODRINE HCL) 5 Mg Tablet, 10 MG PO DAILY, TAB 10 MG EVERY EVENING BEFORE DIALYSIS ON THURSDAY, THURSDAY, AND Thursday01/09/20 Midodrine Hcl (MIDODRINE HCL) 5 Mg Tablet, 5 MG PO DAILY, TAB 5 MG EVERY MORNING ON THURSDAY, THURSDAY, AND Thursday01/09/20 Midodrine Hcl (MIDODRINE HCL) 5 Mg Tablet, 5 MG PO TID, TAB 5 MG TID ON THURSDAY, THURSDAY, THURSDAY, AND Thursday01/09/20 Cetirizine Hcl (ZYRTEC) 10 Mg Capsule, 1 CAP PO DAILY THERAPEUTICALLY SUBSTITUTED WITH LORATIDINE 10MG 01/09/20 Pantoprazole Sodium (PROTONIX) 20 Mg Tablet.dr, 20 MG PO BIDAC, #60 TAB 01/09/20 Calcium Acetate (CALCIUM ACETATE) 667 Mg Tablet, 667 MG PO BIDWM, CAP 01/09/20 [Linzess] No Conflict Check, 290 MCG PO BID PRN for CONSTIPATION 03/03/18 Medications in the ED Adenosine 2 ml @ [facility]-MED ONCE .ROUTE ; Start 02/18/20 at 17:33; Stop 02/18/20 at 17:26; Status DC Adenosine 1 ml @ [facility]-MED ONCE .ROUTE ; Start 02/18/20 at 17:36; Stop 02/18/20 at 17:29; Status DC Adenosine 6 mg ONCE ONCE IV Last administered on 02/18/20at 17:35; Admin Dose 6 MG; Start 02/18/20 at 17:45; Stop 02/18/20 at 17:48; Status DC Ondansetron HCl 4 mg NOW STAT IV Last administered on 02/18/20at 17:57; Admin Dose 4 MG; Start 02/18/20 at 17:44; Stop 02/18/20 at 17:48; Status DC Metoprolol Tartrate 25 mg ONCE ONCE PO ; Start 02/18/20 at 17:45; Stop at 17:48; Status DC DUSTIN NORIEGA, Feb 18, 2020 19:22
[2020-02-18 19:30] VITALS: BP 115/67
[2020-02-18 19:39] VITALS: BP 115/64
--- NOTE | 2020-02-18 19:39 | NUR ---
Pt arrive via stretcher from er accompanied by . o2 at 3L per n/c. Pt denies pain. Hx chest pain with shortness of breath,and svt.cardioverted in er. mediprt rt upper chest. tunneled cath for dialysis rt upper chest. limb alert on left arm. Tele on. Pt does not move around a lot at home ever since sick in december with infected shunt. and pt oriented to PMC,room and floor. Call light within reach. Bed in low position. to bring CPAP machine for night time.
[2020-02-18 20:00] VITALS: BP 115/64
[2020-02-18] MEDS ORDERED: MIDODRINE HCL5 MG PO (22:41)
[2020-02-19] VITALS (9 sets, daily range): BP systolic 101–140; BP diastolic 55–91
[2020-02-19] MEDS ORDERED: NITROGLYCERIN 0.4 MG SUBL SL PRN (03:30)
[2020-02-19] MEDS ORDERED: HYDROMORPHONE HCL 2 MG TAB PO PRN (03:30)
[2020-02-19] MEDS ORDERED: PANTOPRAZOLE SO40 MG PO (03:40)
[2020-02-19] MEDS ORDERED: CALCIUM ACETAT667 M1 PO (03:42)
[2020-02-19 03:52] LABS: CREATINE KINASE MB 0.8 ng/mL (0-5.0)
[2020-02-19 05:52] LABS: CHOL/HDL RATIO 3.6 (3.0-3.6)
--- NOTE | 2020-02-19 07:08 | NUR ---
Met with Dr. Peters and requested plan of care. He stated he anticipates DC home later today pending cardiology
[2020-02-19] MEDS: AMIODARONE HCL 200 MG TAB PO SCH (09:58)
--- NOTE | 2020-02-19 10:00 | NUR ---
NOTIFIED VIA BOTTOM SANDER, PATIENT HEART RATE SUSTAINING IN 140'S. WOKE PATIENT UP TO GIVE HER SCHEDULED AMIODARONE. PATIENT STATES SHE DOES FEEL OKAY. TOOK AMIODARONE, WAITING TO TAKE OTHER SCHEDULED MEDS WHEN SHE GETS PROTONIX.
--- NOTE | 2020-02-19 10:06 | History and Physical ---
This is a 64-year-old female who came to the hospital with chest pain and shortness of breath. HISTORY OF PRESENTING ILLNESS: Ms. Tracy Preciado came to the ER with generalized chest pain with shortness of breath and some palpitation. The patient has been having this for the last week. Prior to coming to the emergency room, the patient was in some respiratory distress with dyspnea. The patient came in with SVT, was converted with adenosine and is admitted to the hospital for further evaluation. PAST MEDICAL HISTORY: History of hypertension, history of COPD, history of recent MT, history of cancer, history of kidney stones, history of chronic anemia, history of chronic COPD, history of hyperlipidemia, history of heart disease, history of chronic UTIs, history of sleep apnea, history of spinal stenosis, history of questionable lupus and history of kidney cancer as mentioned above. PAST SURGICAL HISTORY: History of C-sections, abdominal hysterectomy, cubital tunnel release, cholecystectomy, nephrectomy right kidney, splenectomy, appendectomy, tonsillectomy and adenoidectomy. MEDICATIONS: She takes at home include clonidine 0.1 mg as needed for blood pressure below 170, Cymbalta 30 mg two times a day, dicyclomine 10 mg p.r.n., hydralazine 50 mg twice a day, hydromorphone 4 mg every 8 hours, hydroxyzine 25 mg p.r.n., nitroglycerin 0.4 mg, Plavix 75 mg, potassium chloride, Reglan 10 mg mg, trazodone 100 mg, Xanax 1 mg 3 times a day, and Zofran 4 mg once a day. Iwcb-yks-qiqetqy she takes B12 supplements, multivitamins, probiotic, Nasacort and Zyrtec. ALLERGIES: ALLERGIC TO AUGMENTIN, CODEINE, DEMEROL, GABAPENTIN, KEFLEX, MORPHINE, MYCINS, PENICILLIN, PRIMAXIN, ROBAXIN, SULFA AND TETRACYCLINE. SOCIAL HISTORY: No EtOH. No IV drug abuse. No history of smoking either. FAMILY HISTORY: Noncontributory at this time. REVIEW OF SYSTEMS: Positive for chest pain. Positive for shortness of breath. No nausea, no vomiting. No diarrhea. Positive for abdominal pain. The patient has gastroparesis all the time. Positive for joint pain. Positive for anxiety and depression. No diplopia. No blurry vision. No paresthesias. No hyperesthesias and no headaches either. PHYSICAL EXAMINATION: VITAL SIGNS: On arrival to the ED, the patient's temperature is 99.2, pulse 187, respirations of 24, blood pressure is 91/73 with a pulse oximetry of 100%. GENERAL: The patient is morbidly obese. CVS: S1, S2 regular. ABDOMEN: Soft, nontender, nondistended. EXTREMITIES: No clubbing. No cyanosis. No edema. LUNGS: Clear to auscultation. LABORATORY DATA: On arrival, white count is 16,000, hemoglobin 12.9, hematocrit of 39.4, BUN of 22, creatinine of 4.99, neutrophil count is 46.2. Chemistry shows sodium 136, potassium 3.7. Troponin 1st set was 0.023. Creatine kinase 11. Coags were normal. Serology: Coronavirus is still pending. IMAGING STUDIES: Chest x-ray shows no acute radiographic abnormalities. Left internal jugular venous catheter now terminates in the right atrium . MICROBIOLOGY: None done. ASSESSMENT AND PLAN: 1. Ms. Tracy Preciado is a 64-year-old female who came in with supraventricular tachycardia status post adenosine. 2. Chest pain, Cardiology consult. 3. End-stage renal disease, Renal consult. 4. Hypertension. 5. Hyperlipidemia. 6. Sleep apnea. 7. Leukocytosis. PLAN: Continue with home medications. Continue metoprolol. Continue with monitoring the patient and we will continue all her home medications. Also, do blood culture and urine culture secondary to leukocytosis and Coronavirus is pending at this time. MD ANGELA KulkarniJ/MODL /[id number]
[2020-02-19] MEDS ORDERED: DIGOXIN INJ 0.25 MG/ML 2 ML AMP IV NR (10:15)
--- NOTE | 2020-02-19 10:20 | NUR ---
SPOKE WITH INDUSTRIAL CLEANING TECHNICIANLivia. DIG ORDERED AND GIVEN. PATIENT DOES STATE SHE NOW FEELS NAUSEATED.
[2020-02-19] MEDS: PANTOPRAZOLE SOD 40 MG TABEC PO SCH ×2 (10:28→16:26)
[2020-02-19] MEDS: ALPRAZOLAM 1 MG TAB PO PRN ×2 (10:50→22:07)
[2020-02-19] MEDS: ONDANSETRON HCL 4 MG ORAL DISINTEGRATING TAB PO PRN (10:50)
--- NOTE | 2020-02-19 10:50 | NUR ---
HEART RATE NOW 126.
[2020-02-19 11:04] LABS: CREATINE KINASE MB 0.8 ng/mL (0-5.0)
[2020-02-19] MEDS: CLOPIDOGREL BISULFATE 75 MG TAB PO SCH (11:57)
[2020-02-19] MEDS: DICYCLOMINE HCL 10 MG CAP PO SCH ×2 (11:57→16:26)
[2020-02-19] MEDS: LACTOBACILLUS ACIDOPHILUS CAPSULE PO SCH (11:57)
[2020-02-19] MEDS: DULOXETINE HCL 30 MG DELAYED RELEASE PO SCH (11:57)
[2020-02-19] MEDS: MIDODRINE HCL 5 MG TABLET PO SCH ×2 (11:57→16:26)
[2020-02-19] MEDS: APIXABAN 5 MG TABLET PO SCH ×2 (11:57→16:26)
--- NOTE | 2020-02-19 14:03 | NUR ---
PER DIRECTOR OF CORPORATE COMMUNICATIONS, PATIENT CONVERTED TO SINUS. HR- 80.
[2020-02-19] MEDS: EZETIMIBE 10 MG TAB PO SCH (16:26)
--- NOTE | 2020-02-19 19:20 | NUR ---
BEDSIDE SHIFT REPORT RECEIVED FROM DAY RN. O2 AT 2.5 l PER N/C. RESPIRATIONS ARE EVEN AND UNLABORED. TELE ON. MEDIPORT ACESSED RT UPPER CHEST-SITE HEALTHY AND PATENT. DIALYSIS TUNNEL CATH INTACT.DIALYSIS IN AM.NO EDEMA. PT DENIES PAIN. CPAP AT BEDTIME WITH O2. NO B/P OR LAB DRAW IN LEFT ARM-LIMB ALERT ON.CALL LIGHT WITHIN REACH. BED IN LOW POSITION.
[2020-02-19] MEDS: TRAZODONE HCL 50 MG TAB PO SCH (22:04)
[2020-02-20] VITALS (7 sets, daily range): BP systolic 107–165; BP diastolic 46–97
--- NOTE | 2020-02-20 07:00 | NUR ---
Received report from off going nurse. Pt lying in bed sleeping and no apparent distress. Night nurse advised order to discontinue sliding scale and accu checks per Dr. Torres.
[2020-02-20] MEDS: PANTOPRAZOLE SOD 40 MG TABEC PO SCH ×3 (08:00→16:35)
--- NOTE | 2020-02-20 08:51 | NUR ---
1702 Dr. Torres was called by SABI Wesley to see if patient could be discharged after dialysis complete. Maryjane was advised no the patient could not be discharged.
[2020-02-20] MEDS: DICYCLOMINE HCL 10 MG CAP PO SCH ×2 (09:30→17:07)
[2020-02-20] MEDS: APIXABAN 5 MG TABLET PO SCH ×2 (09:30→17:07)
[2020-02-20] MEDS: DULOXETINE HCL 30 MG DELAYED RELEASE PO SCH (09:30)
[2020-02-20] MEDS: MIDODRINE HCL 5 MG TABLET PO SCH ×3 (09:30→21:02)
[2020-02-20] MEDS: CLOPIDOGREL BISULFATE 75 MG TAB PO SCH (09:30)
[2020-02-20] MEDS: AMIODARONE HCL 200 MG TAB PO SCH (09:30)
[2020-02-20] MEDS: LACTOBACILLUS ACIDOPHILUS CAPSULE PO SCH (09:30)
[2020-02-20] MEDS ORDERED: SODIUM CHLORIDE 0.9% 1000ML 2,000 ML IV PRN (10:45)
[2020-02-20] MEDS ORDERED: HEPARIN SOD (PORCINE) 1000 UNIT/ML SDV IV PRN (10:45)
[2020-02-20] MEDS ORDERED: ALBUMIN 25% 12.5GM 0.25 GM/ML BTL IV PRN (10:45)
[2020-02-20] MEDS ORDERED: MANNITOL 25% 12.5GM/50 ML VIAL IV PRN (10:45)
[2020-02-20] MEDS ORDERED: SODIUM CHLORIDE 0.9% 250ML 500 ML IV PRN (10:45)
[2020-02-20] MEDS ORDERED: METOPROLOL SUCCINATE 25 MG TAB XL PO ONE (11:00)
--- NOTE | 2020-02-20 11:35 | Progress Note ---
DATE: 02/20/2020 Cardiology Progress Note SUBJECTIVE: The patient denies chest pain or shortness of breath. OBJECTIVE: VITAL SIGNS: Temperature 98.2 degrees, pulse 64, respiratory rate 18, blood pressure 115/52, oxygen saturation 100% on 2 L nasal cannula. GENERAL: Obese woman, in no acute distress. Awake and alert. LUNGS: Clear to auscultation bilaterally. No wheezes or crackles. CARDIOVASCULAR: Normal rate. Regular rhythm. No murmur. Normal S1, S2. ABDOMEN: Soft, nontender. EXTREMITIES: No edema. CARDIAC MEDICATIONS: On Plavix 75 mg p.o. daily, apixaban 5 mg p.o. b.i.d., amiodarone 200 mg p.o. daily, Zetia 10 mg p.o. daily. LABORATORY DATA: None today. TELEMETRY: Telemetry was personally reviewed revealing normal sinus rhythm. IMPRESSION: 1. Supraventricular tachycardia. 2. Chest pain. 3. Coronary artery disease with prior left anterior descending artery and percutaneous coronary intervention. 4. Paroxysmal atrial fibrillation. 5. Hypertension. 6. Hyperlipidemia. 7. Diabetes mellitus. 8. End-stage renal disease, on hemodialysis. RECOMMENDATIONS: Recommend starting metoprolol succinate 12.5 mg p.o. daily. Continue Midrin for blood pressure support. The patient has ruled out for myocardial infarction. She may follow up as an outpatient for nuclear stress test. Continue current cardiac medications otherwise monitor patient on telemetry while admitted. The patient had echocardiogram earlier this month with normal LV systolic function. She may be discharged home from a cardiac standpoint. Thank you for this consult. We will continue to follow. Nisa Hicks MD ABS/MODL /[id number]
--- NOTE | 2020-02-20 12:30 | Consultation ---
DATE OF CONSULTATION: 02/20/2020 REQUESTING PHYSICIAN: Dr. Peters. REASON FOR CONSULTATION: End-stage renal disease. HISTORY OF PRESENT ILLNESS: This is a 64-year-old female with history of end- stage renal disease, has a prior history of hypertension, severe CHF. She dialyzes on Thursday, Thursday, and Thursday. She uses through the tunneled catheter. Came in with worsening chest discomfort and dyspnea, noted to be in SVT, converted with adenosine. Cardiology followup is also pending. She does have a history of gastroparesis, although the nausea is better. PAST MEDICAL HISTORY: 1. Hypertension. 2. CHF. 3. Coronary artery disease. 4. AV fistula with pseudoaneurysm rupture and subsequent reconstruction in the left arm. 5. Prior UTIs. 6. Deconditioning. 7. Question lupus. 8. Kidney cancer. 9. Dyslipidemia. PAST SURGICAL HISTORY: She is status post abdominal hysterectomy, right nephrectomy, splenectomy, appendectomy, and adenoidectomy. FAMILY-does not know of kidney problems in family CURRENT MEDICATIONS: Xanax 1 mg t.i.d. p.r.n., trazodone 300 at bedtime, Eliquis 5 mg b.i.d., Zetia 10 mg a day, Plavix 75 a day, Cymbalta 30 mg daily, midodrine 15 mg a day as needed., and nitroglycerin p.r.n. SOCIAL HISTORY: . Lives with . Does not abuse alcohol or smoke. REVIEW OF SYSTEMS: CONSTITUTIONAL: Feels weak. GI: Gastroparesis better from last week. CARDIAC: Palpitations improved. Still some chronic dyspnea. RESPIRATORY: Chronic dyspnea. NEURO: Denies headaches or seizures. Strength level has been gradually improving over the last few months. SKIN: No new ulcers or sores. Rest of review is negative. LABORATORY DATA: Hemoglobin 12.6, white count 16,000, and platelets 742. Sodium 136, K 3.7, serum CO2 22, creatinine 4.99, BUN 72, lactic acid 1.6, and phosphorus 3.2. PHYSICAL EXAMINATION: GENERAL: Lying in bed, no distress. VITAL SIGNS: Temperature 98.4, pulse 57, irregular, and blood pressure 133/62. HEENT: Atraumatic. CHEST: Diminished breath sounds at bases. CARDIAC: Normal heart tones. Irregular rhythm. EXTREMITIES: Trace edema. Left upper extremity fistula is not ready, but does have a good bruit is present. SKIN: No ulcers on exposed areas. NEURO: Appears to be alert, appropriate. Speech is normal. ASSESSMENT: 1. End-stage renal disease. 2. Hypertension. 3. Volume seems compensated. 4. X-ray was clear. 5. Supraventricular tachycardia that is improved. 6. Arteriovenous fistula that is not ready. 7. Anemia of chronic kidney disease with satisfactory hemoglobin. PLAN: 1. Hemodialysis today. 2. Please see orders for details. 3. Add protein supplements. 4. Check phosphorus levels in the morning. 5. We will follow along. MD PHYLLIS Rubin/ZOE /[id number] MTDD
[2020-02-20] MEDS ORDERED: MIDODRINE 2.5 MG TAB PO SCH (13:00)
[2020-02-20] MEDS: EZETIMIBE 10 MG TAB PO SCH (17:07)
--- NOTE | 2020-02-20 19:00 | NUR ---
Report given to on coming nurse. Pt lying in bed semi-fowlers position and no apparent distress. Bed in its lowest position. Call pedersen within reach.
--- NOTE | 2020-02-20 19:05 | NUR ---
RECEIVED BEDSIDE SHIFT REPORT FROM PREVIOUS NURSE. CALL LIGHT WITHIN REACH. PATIENT IN NO PAIN OR DISTRESS. PATIENT IS A&OX3. AT BEDSIDE.
[2020-02-20] MEDS: TRAZODONE HCL 50 MG TAB PO SCH (21:02)
[2020-02-20] MEDS: ONDANSETRON HCL 4 MG ORAL DISINTEGRATING TAB PO PRN (21:06)
[2020-02-21] VITALS: BP 119/57
[2020-02-21 04:00] VITALS: BP 111/52
[2020-02-21] MEDS ORDERED: METHYLPREDNISOLONE SOD SUCC 40 MG/ML VIAL 1ML IV ONE (05:00)
--- NOTE | 2020-02-21 06:19 | Discharge Summary ---
DISCHARGE DIAGNOSES: Supraventricular tachycardia, end-stage renal disease, diabetes, morbid obesity, sleep apnea. HISTORY OF PRESENT ILLNESS AND HOSPITAL COURSE: See hospital chart for full details. The patient is a lady, who presented with some chest pain, was found to have SVT that responded well to adenosine. She was brought in and placed on telemetry. She was ruled out for [place]. Echo showed normal LV function. She was seen by Cardiology. She had no further episodes in the hospital and she really wanted to go home. So after the dialysis, she was discharged home with continuation of her home medicines. Her new medicine was metoprolol succinate 12.5 mg p.o. daily to try to help with an SVT episode and she will follow up in about two weeks with me as well as with Cardiology. Please see hospital chart for full details. MD RITA Michael/ZOE /[id number]
--- NOTE | 2020-02-21 07:02 | NUR ---
Received report from off going nurse. Pt lying in bed sleeping and no apparent distress. Pt on CPAP. Bed in its lowest position and call pedersen within reach.
--- NOTE | 2020-02-21 07:16 | NUR ---
GAVE BEDSIDE SHIFT REPORT TO ONCOMING NURSE. CALL LIGHT WITHIN REACH. PATIENT IN BED. AT THE BEDSIDE. HOURLY ROUNDING PERFORMED
[2020-02-21 07:39] VITALS: BP 119/57
[2020-02-21 08:43] VITALS: BP 119/57
[2020-02-21] MEDS: DULOXETINE HCL 30 MG DELAYED RELEASE PO SCH (08:45)
[2020-02-21] MEDS: APIXABAN 5 MG TABLET PO SCH (08:45)
[2020-02-21] MEDS: AMIODARONE HCL 200 MG TAB PO SCH (08:45)
[2020-02-21] MEDS: DICYCLOMINE HCL 10 MG CAP PO SCH (08:45)
[2020-02-21] MEDS: PANTOPRAZOLE SOD 40 MG TABEC PO SCH (08:45)
[2020-02-21] MEDS: MIDODRINE HCL 5 MG TABLET PO SCH (08:45)
[2020-02-21] MEDS: LACTOBACILLUS ACIDOPHILUS CAPSULE PO SCH (08:45)
[2020-02-21] MEDS: CLOPIDOGREL BISULFATE 75 MG TAB PO SCH (08:45)
--- NOTE | 2020-02-21 08:45 | NUR ---
Held Metoprolol Succ 25mg BP: 119/57 HR: 60
[2020-02-21] MEDS ORDERED: METOPROLOL SUCCINATE 25 MG TAB XL PO SCH (09:00)
[2020-02-21] MEDS ORDERED: METOPROLOL SUCC25 MG PO (09:13)
[2020-02-21] MEDS ORDERED: HEPARIN SOD (PORCINE) 1000 UNIT/ML 10ML MDV IV ONE (09:45)
[2020-02-21] MEDS ORDERED: HEPARIN 500 UNITS/5ML MDV INJ ONE (10:00)
--- NOTE | 2020-02-21 10:08 | NUR ---
1000 medi port removed after 3ml Heparin flush. Pt tolerated well. 1008 Pt off floor via wheelchair for home. Pt in no apparent distress and denies pain 0/10.
== END 2020-02-21 10:08 | disposition home or self-care (01) ==
LOC: ER 17:22 → ERHOLD 18:18 → MED/SURG 19:31
PROVIDERS: ADMIT Internal Medicine; ATTEND Internal Medicine
DX: I47.1 Supraventricular tachycardia (principal); R07.89 Other chest pain; E11.22 Type 2 diabetes mellitus with diabetic chronic kidney disease; I12.0 Hypertensive chronic kidney disease with stage 5 chronic kidney disease or end stage renal disease; N18.6 End stage renal disease; Z99.2 Dependence on renal dialysis; E66.01 Morbid (severe) obesity due to excess calories; Z68.36 Body mass index [BMI] 36.0-36.9, adult; F41.9 Anxiety disorder, unspecified; Z85.528 Personal history of other malignant neoplasm of kidney; D63.1 Anemia in chronic kidney disease; Z20.828 Contact with and (suspected) exposure to other viral communicable diseases; E78.5 Hyperlipidemia, unspecified; J44.9 Chronic obstructive pulmonary disease, unspecified; G47.30 Sleep apnea, unspecified; I48.0 Paroxysmal atrial fibrillation
CPT/HCPCS: 36415 ×3; 71045; 80053; 80061; 82550 ×2; 82553 ×2; 83735; 83880; 84100; 84443; 84484 ×2; 85025; 85610; 85730; 86704; 86706; 87340; 93005; 99284; G0378 ×4; J0153; J1160; J1644; J2405; J2920; Q0162 ×2; S0164 ×3; U0002

== ENCOUNTER 2020-04-05 13:49 | Outpatient (RCR) | payer MEDICARE, BC ==
[~2020-04-05 13:49] MED LIST changes: +B12 ACTIVE1000 MCG PO; +CALCIUM ACETAT667 M1 PO; +HYDRALAZINE HCL50 MG PO; +PANTOPRAZOLE SO40 MG PO
[2020-04-05] MEDS ORDERED: LIDOCAINE/PRILOCAINE 2.5-2.5% KIT ONE (16:32)
[2020-04-05] MEDS ORDERED: LIDOCAINE VISC 2% SOLN 15 ML UDC ONE (16:32)
[2020-04-12] MEDS ORDERED: LIDOCAINE/PRILOCAINE 2.5-2.5% KIT ONE (14:20)
== END 2020-04-22 ==
LOC: WCC 13:49
PROVIDERS: ATTEND Family Medicine Adult Medicine
DX: T81.32XA Disruption of internal operation (surgical) wound, not elsewhere classified, initial encounter (principal); L98.9 Disorder of the skin and subcutaneous tissue, unspecified; N18.4 Chronic kidney disease, stage 4 (severe); I10 Essential (primary) hypertension; I48.91 Unspecified atrial fibrillation; I50.9 Heart failure, unspecified; J44.9 Chronic obstructive pulmonary disease, unspecified; G47.33 Obstructive sleep apnea (adult) (pediatric); M48.00 Spinal stenosis, site unspecified; M54.30 Sciatica, unspecified side; A49.01 Methicillin susceptible Staphylococcus aureus infection, unspecified site; E66.01 Morbid (severe) obesity due to excess calories; E78.00 Pure hypercholesterolemia, unspecified; I25.10 Atherosclerotic heart disease of native coronary artery without angina pectoris; K21.9 Gastro-esophageal reflux disease without esophagitis
CPT/HCPCS: 36415; 82948

== ENCOUNTER 2020-04-23 11:11 | Inpatient (IN) | payer BC, MEDICARE ==
[~2020-04-23] VITALS: Ht 154.9 cm; Wt 87.2 kg
[2020-04-23 12:36] LABS: BASOPHILS # (AUTO) 0.1 (0.0-0.1); BASOPHILS % 0.5 % (0.0-1.0); EOSINOPHILS # (AUTO) 0.1 (0.0-0.4); EOSINOPHILS % 0.4 % (0.0-6.0); HEMATOCRIT 37.7 % (34.2-44.1); HEMOGLOBIN 11.5 g/dL (12.0-16.0); LYMPHOCYTES % 4.7 % (18.0-39.1); MEAN CORPUSCULAR HEMOGLOBIN 28.2 pg (28-32); MEAN CORPUSCULAR HGB CONC 30.5 g/dL (31-35); MEAN CORPUSCULAR VOLUME 92.4 fL (81-99); MONOCYTES # (AUTO) 0.9 (0.2-0.8); MONOCYTES % 4.4 % (4.4-11.3); NEUTROPHILS # (AUTO) 18.6 (2.1-6.9); NEUTROPHILS % 89.3 % (38.7-80.0); PLATELET COUNT 653 x10e3/uL (140-360); RED BLOOD COUNT 4.08 x10e6/uL (3.6-5.1); RED CELL DISTRIBUTION WIDTH 17.2 % (11.7-14.4)
[2020-04-23 13:07] LABS: INR 2.2; PROTHROMBIN TIME 26.2 seconds (11.9-14.5)
[2020-04-23 13:08] LABS: PARTIAL THROMBOPLASTIN TIME 58.3 seconds (23.8-35.5)
[2020-04-23 13:14] LABS: ALBUMIN 2.5 g/dL (3.5-5.0); ALBUMIN/GLOBULIN RATIO 0.5 (0.8-2.0); ANION GAP 19.5 mmol/L (8-16); CALCIUM 9.4 mg/dL (8.4-10.2); MAGNESIUM 1.9 MG/DL (1.3-2.1); POTASSIUM 3.5 mmol/L (3.5-5.1)
[2020-04-23] MEDS ORDERED: LEVOFLOXACIN 500MG/D5W 100ML 100 ML IV ONE (13:15)
[2020-04-23 13:20] LABS: CREATINE KINASE MB 5.7 ng/mL (0-5.0)
[2020-04-23] MEDS ORDERED: FUROSEMIDE INJ 10 MG/ML 4 ML VIAL IV NR (14:15)
[2020-04-23 14:34] LABS: ABG HCO3 31 mmol/L (22-26); ABG PCO2 60 mmHg (35-45); ABG PH 7.32 (7.35-7.45); ABG PO2 124 mmHg (80-105)
[2020-04-23 14:35] LABS: ABG TCO2 32
[2020-04-23] MEDS ORDERED: SODIUM CHLORIDE 0.9% 1000ML 2,000 ML IV PRN (17:45)
[2020-04-23] MEDS ORDERED: SODIUM CHLORIDE 0.9% 250ML 500 ML IV PRN (17:45)
[2020-04-23] MEDS ORDERED: HEPARIN SOD (PORCINE) 1000 UNIT/ML SDV IV PRN (17:45)
[2020-04-23] MEDS ORDERED: ALBUMIN 25% 12.5GM 0.25 GM/ML BTL IV PRN (17:45)
[2020-04-23] MEDS ORDERED: MANNITOL 25% 12.5GM/50 ML VIAL IV PRN (17:45)
[2020-04-23 20:44] LABS: CREATINE KINASE MB 8.8 ng/mL (0-5.0)
[2020-04-23] MEDS ORDERED: HEPARIN SOD (PORCINE) 5,000 UNIT/ML VIAL IV ONE ×2 (21:00→21:15)
[2020-04-23] MEDS ORDERED: HEPARIN 25,000 UNIT 800 UNIT in DEXTROSE 5% 250ML 250 ML IV SCH (21:15)
[2020-04-24 00:02] LABS: BASOPHILS # (AUTO) 0.1 (0.0-0.1); BASOPHILS % 0.4 % (0.0-1.0); EOSINOPHILS # (AUTO) 0.1 (0.0-0.4); EOSINOPHILS % 0.4 % (0.0-6.0); HEMATOCRIT 32.4 % (34.2-44.1); HEMOGLOBIN 10.1 g/dL (12.0-16.0); LYMPHOCYTES # (AUTO) 1.4 (1.0-3.2); LYMPHOCYTES % 8.6 % (18.0-39.1); MEAN CORPUSCULAR HEMOGLOBIN 28.5 pg (28-32); MEAN CORPUSCULAR HGB CONC 31.2 g/dL (31-35); MEAN CORPUSCULAR VOLUME 91.5 fL (81-99); MONOCYTES # (AUTO) 0.7 (0.2-0.8); MONOCYTES % 4.3 % (4.4-11.3); NEUTROPHILS # (AUTO) 14.1 (2.1-6.9); NEUTROPHILS % 85.9 % (38.7-80.0); PLATELET COUNT 516 x10e3/uL (140-360); RED BLOOD COUNT 3.54 x10e6/uL (3.6-5.1); RED CELL DISTRIBUTION WIDTH 16.7 % (11.7-14.4)
[2020-04-24 00:08] LABS: INR 1.92; PROTHROMBIN TIME 23.5 seconds (11.9-14.5)
[2020-04-24 00:43] LABS: INR 1.79; PROTHROMBIN TIME 22.2 seconds (11.9-14.5)
[2020-04-24 00:44] LABS: PARTIAL THROMBOPLASTIN TIME 49.6 seconds (23.8-35.5)
[2020-04-24] MEDS ORDERED: HEPARIN 25,000 UNIT DRIP IV ONE (01:07)
[2020-04-24] MEDS ORDERED: HYDROXYZINE HCL 25 MG TAB PO PRN (04:00)
[2020-04-24 04:42] LABS: BASOPHILS # (AUTO) 0.1 (0.0-0.1); BASOPHILS % 0.4 % (0.0-1.0); EOSINOPHILS # (AUTO) 0.2 (0.0-0.4); EOSINOPHILS % 1.1 % (0.0-6.0); HEMATOCRIT 32.6 % (34.2-44.1); HEMOGLOBIN 10.2 g/dL (12.0-16.0); LYMPHOCYTES # (AUTO) 1.6 (1.0-3.2); LYMPHOCYTES % 9.5 % (18.0-39.1); MEAN CORPUSCULAR HEMOGLOBIN 29.2 pg (28-32); MEAN CORPUSCULAR HGB CONC 31.3 g/dL (31-35); MEAN CORPUSCULAR VOLUME 93.4 fL (81-99); MONOCYTES # (AUTO) 0.9 (0.2-0.8); MONOCYTES % 5.1 % (4.4-11.3); NEUTROPHILS # (AUTO) 13.9 (2.1-6.9); NEUTROPHILS % 83.6 % (38.7-80.0); PLATELET COUNT 534 x10e3/uL (140-360); RED BLOOD COUNT 3.49 x10e6/uL (3.6-5.1); RED CELL DISTRIBUTION WIDTH 16.7 % (11.7-14.4)
[2020-04-24 05:01] LABS: ALBUMIN 2.8 g/dL (3.5-5.0); ALBUMIN/GLOBULIN RATIO 0.7 (0.8-2.0); ANION GAP 17.6 mmol/L (8-16); CALCIUM 9.2 mg/dL (8.4-10.2); CHOL/HDL RATIO 1.8 (3.0-3.6); CREATININE, SERUM 3.82 mg/dL (0.57-1.11); POTASSIUM 3.6 mmol/L (3.5-5.1)
[2020-04-24 05:24] LABS: CREATINE KINASE MB 1.7 ng/mL (0-5.0)
[2020-04-24] MEDS: CLOPIDOGREL BISULFATE 75 MG TAB PO SCH (08:21)
[2020-04-24] MEDS: AMIODARONE HCL 200 MG TAB PO SCH (08:21)
[2020-04-24] MEDS: DULOXETINE HCL 30 MG DELAYED RELEASE PO SCH (08:21)
[2020-04-24] MEDS: PANTOPRAZOLE SOD 40 MG TABEC PO SCH ×3 (08:21→16:53)
[2020-04-24] MEDS: MIDODRINE HCL 5 MG TABLET PO SCH ×2 (08:22→16:51)
[2020-04-24] MEDS: METOPROLOL SUCCINATE 25 MG TAB XL PO SCH ×2 (08:34→16:50)
[2020-04-24] MEDS: HYDROCODONE/APAP 10MG-325MG TAB PO PRN ×2 (08:34→21:30)
[2020-04-24] MEDS ORDERED: LEVOFLOXACIN 250MG/D5W 50ML 50 ML IV SCH (13:00)
[2020-04-24 13:44] LABS: CREATINE KINASE MB 1.6 ng/mL (0-5.0)
[2020-04-24] MEDS ORDERED: HEPARIN SOD (PORCINE) 1000 UNIT/ML SDV IV PRN (15:45)
[2020-04-24] MEDS: EZETIMIBE 10 MG TAB PO SCH (16:52)
[2020-04-24] MEDS: LEVALBUTEROL HCL SOLN NEBU 0.63 MG/3 ML NEB INH SCH (20:00)
[2020-04-24] MEDS: TRAZODONE HCL 50 MG TAB PO SCH (23:21)
[2020-04-25] VITALS (21 sets, daily range): BP systolic 105–158; BP diastolic 51–99
[2020-04-25] MEDS: LEVALBUTEROL HCL SOLN NEBU 0.63 MG/3 ML NEB INH SCH ×3 (01:10→13:00)
[2020-04-25 04:56] LABS: BASOPHILS # (AUTO) 0.1 (0.0-0.1); BASOPHILS % 0.5 % (0.0-1.0); EOSINOPHILS # (AUTO) 0.2 (0.0-0.4); EOSINOPHILS % 0.9 % (0.0-6.0); HEMATOCRIT 31.9 % (34.2-44.1); HEMOGLOBIN 10.1 g/dL (12.0-16.0); MEAN CORPUSCULAR HEMOGLOBIN 28.5 pg (28-32); MEAN CORPUSCULAR HGB CONC 31.7 g/dL (31-35); MEAN CORPUSCULAR VOLUME 90.1 fL (81-99); MONOCYTES # (AUTO) 1.2 (0.2-0.8); MONOCYTES % 7.1 % (4.4-11.3); NEUTROPHILS # (AUTO) 13.4 (2.1-6.9); NEUTROPHILS % 78.8 % (38.7-80.0); PLATELET COUNT 495 x10e3/uL (140-360); RED BLOOD COUNT 3.54 x10e6/uL (3.6-5.1); RED CELL DISTRIBUTION WIDTH 16.9 % (11.7-14.4)
[2020-04-25] MEDS ORDERED: HEPARIN 25,000 UNIT DRIP IV ONE (05:03)
[2020-04-25 05:16] LABS: ANION GAP 22.2 mmol/L (8-16); CALCIUM 9.8 mg/dL (8.4-10.2); CREATININE, SERUM 5.15 mg/dL (0.57-1.11); POTASSIUM 4.2 mmol/L (3.5-5.1)
[2020-04-25] MEDS: HYDROCODONE/APAP 10MG-325MG TAB PO PRN (05:36)
[2020-04-25] MEDS: PANTOPRAZOLE SOD 40 MG TABEC PO SCH ×3 (07:30→16:30)
[2020-04-25] MEDS ORDERED: HEPARIN SOD/SOD CHLORIDE 2,000 ML ONE (08:09)
[2020-04-25] MEDS ORDERED: IOPAMIDOL 370 MG/ML 200 ML INFUS..BTL INJ ONE (08:09)
[2020-04-25] MEDS ORDERED: LIDOCAINE HCL 2% LOCAL 20 ML VIAL ONE (08:09)
[2020-04-25] MEDS ORDERED: NITROGLYCERIN/D5W 200 MCG/ML 250 ML ONE (08:10)
[2020-04-25] MEDS ORDERED: MIDAZOLAM HCL 2 MG/2 ML VIAL ONE (08:16)
[2020-04-25] MEDS ORDERED: FENTANYL CITRATE/PF 100MCG/2 ML INJ ONE (08:17)
[2020-04-25] MEDS ORDERED: SODIUM CHLORIDE 0.9% 1000ML 1,000 ML ONE (08:58)
[2020-04-25] MEDS: METOPROLOL SUCCINATE 25 MG TAB XL PO SCH (09:00)
[2020-04-25] MEDS: AMIODARONE HCL 200 MG TAB PO SCH (09:00)
[2020-04-25] MEDS: MIDODRINE HCL 5 MG TABLET PO SCH ×2 (09:00→17:00)
[2020-04-25] MEDS ORDERED: VERAPAMIL HCL 2.5 MG/ML 2 ML VIAL ONE (09:20)
[2020-04-25] MEDS ORDERED: HEPARIN SOD (PORCINE) 1000 UNIT/ML 30ML ONE (09:21)
[2020-04-25] MEDS ORDERED: SODIUM CHLORIDE 0.9% 1000ML 2,000 ML IV PRN (16:15)
[2020-04-25] MEDS ORDERED: ALBUMIN 25% 12.5GM 0.25 GM/ML BTL IV PRN (16:15)
[2020-04-25] MEDS ORDERED: HEPARIN SOD (PORCINE) 1000 UNIT/ML SDV IV PRN (16:15)
[2020-04-25] MEDS ORDERED: SODIUM CHLORIDE 0.9% 250ML 500 ML IV PRN (16:15)
[2020-04-25] MEDS: EZETIMIBE 10 MG TAB PO SCH (17:00)
[2020-04-25] MEDS: TRAZODONE HCL 50 MG TAB PO SCH (21:20)
[2020-04-26] VITALS (9 sets, daily range): BP systolic 110–140; BP diastolic 49–74
[2020-04-26] MEDS: HYDROCODONE/APAP 10MG-325MG TAB PO PRN ×4 (00:34→18:19)
[2020-04-26] MEDS: ALPRAZOLAM 0.5 MG TAB PO PRN (01:54)
[2020-04-26 06:35] LABS: BASOPHILS # (AUTO) 0.1 (0.0-0.1); BASOPHILS % 0.4 % (0.0-1.0); EOSINOPHILS # (AUTO) 0.1 (0.0-0.4); EOSINOPHILS % 0.3 % (0.0-6.0); HEMATOCRIT 32.1 % (34.2-44.1); HEMOGLOBIN 10.1 g/dL (12.0-16.0); LYMPHOCYTES # (AUTO) 1.6 (1.0-3.2); LYMPHOCYTES % 9.7 % (18.0-39.1); MEAN CORPUSCULAR HEMOGLOBIN 28.3 pg (28-32); MEAN CORPUSCULAR HGB CONC 31.5 g/dL (31-35); MEAN CORPUSCULAR VOLUME 89.9 fL (81-99); MONOCYTES # (AUTO) 1.4 (0.2-0.8); MONOCYTES % 8.6 % (4.4-11.3); NEUTROPHILS # (AUTO) 13.4 (2.1-6.9); NEUTROPHILS % 80.3 % (38.7-80.0); PLATELET COUNT 474 x10e3/uL (140-360); RED BLOOD COUNT 3.57 x10e6/uL (3.6-5.1); RED CELL DISTRIBUTION WIDTH 16.9 % (11.7-14.4)
[2020-04-26 07:14] LABS: ALBUMIN 3.4 g/dL (3.5-5.0); ALBUMIN/GLOBULIN RATIO 0.8 (0.8-2.0); CREATININE, SERUM 3.63 mg/dL (0.57-1.11)
[2020-04-26] MEDS: LEVALBUTEROL HCL SOLN NEBU 0.63 MG/3 ML NEB INH SCH ×3 (07:20→19:00)
[2020-04-26] MEDS: CLOPIDOGREL BISULFATE 75 MG TAB PO SCH ×2 (08:50→09:00)
[2020-04-26] MEDS: DULOXETINE HCL 30 MG DELAYED RELEASE PO SCH (08:50)
[2020-04-26] MEDS: AMIODARONE HCL 200 MG TAB PO SCH (08:50)
[2020-04-26] MEDS: METOPROLOL SUCCINATE 25 MG TAB XL PO SCH ×2 (09:00→17:53)
[2020-04-26] MEDS: MIDODRINE HCL 5 MG TABLET PO SCH ×2 (09:00→17:00)
[2020-04-26] MEDS: PANTOPRAZOLE SOD 40 MG TABEC PO SCH ×2 (12:06→16:30)
[2020-04-26] MEDS: LEVOFLOXACIN 250MG/D5W 50ML 50 ML IV SCH (14:00)
[2020-04-26] MEDS: EZETIMIBE 10 MG TAB PO SCH (17:00)
[2020-04-26] MEDS: TRAZODONE HCL 50 MG TAB PO SCH (21:26)
[2020-04-27] VITALS (9 sets, daily range): BP systolic 99–132; BP diastolic 50–74
[2020-04-27] MEDS: HYDROCODONE/APAP 10MG-325MG TAB PO PRN ×2 (04:55→13:23)
[2020-04-27] MEDS: LEVALBUTEROL HCL SOLN NEBU 0.63 MG/3 ML NEB INH SCH ×3 (07:05→22:00)
[2020-04-27] MEDS: METOPROLOL SUCCINATE 25 MG TAB XL PO SCH ×2 (08:40→16:56)
[2020-04-27] MEDS: MIDODRINE HCL 5 MG TABLET PO SCH ×2 (08:40→16:20)
[2020-04-27] MEDS: AMIODARONE HCL 200 MG TAB PO SCH (08:41)
[2020-04-27] MEDS: DULOXETINE HCL 30 MG DELAYED RELEASE PO SCH (08:41)
[2020-04-27] MEDS: PANTOPRAZOLE SOD 40 MG TABEC PO SCH ×3 (08:41→16:20)
[2020-04-27] MEDS: BALSAM PERU/CASTOR OIL 60 GM OINT...G. TP SCH (14:45)
[2020-04-27] MEDS: EZETIMIBE 10 MG TAB PO SCH (16:20)
[2020-04-27] MEDS: TRAZODONE HCL 50 MG TAB PO SCH (21:00)
[2020-04-27] MEDS: ALPRAZOLAM 0.5 MG TAB PO PRN (22:28)
[2020-04-28] VITALS (9 sets, daily range): BP systolic 79–127; BP diastolic 41–55
[2020-04-28] MEDS: LEVALBUTEROL HCL SOLN NEBU 0.63 MG/3 ML NEB INH SCH ×3 (07:18→18:50)
[2020-04-28] MEDS: PANTOPRAZOLE SOD 40 MG TABEC PO SCH ×3 (08:11→16:33)
[2020-04-28] MEDS: DULOXETINE HCL 30 MG DELAYED RELEASE PO SCH (08:11)
[2020-04-28] MEDS: METOPROLOL SUCCINATE 25 MG TAB XL PO SCH ×2 (08:16→16:33)
[2020-04-28] MEDS: AMIODARONE HCL 200 MG TAB PO SCH (08:17)
[2020-04-28] MEDS: BALSAM PERU/CASTOR OIL 60 GM OINT...G. TP SCH (08:17)
[2020-04-28] MEDS: MIDODRINE HCL 5 MG TABLET PO SCH ×3 (08:17→16:33)
[2020-04-28] MEDS ORDERED: EPOETIN ALFA-EPBX 10,000 UNIT/ML VIAL SC NR (10:45)
[2020-04-28] MEDS: LEVOFLOXACIN 250MG/D5W 50ML 50 ML IV SCH (15:02)
[2020-04-28] MEDS: EZETIMIBE 10 MG TAB PO SCH (16:21)
[2020-04-28] MEDS: TRAZODONE HCL 50 MG TAB PO SCH (20:23)
[2020-04-28] MEDS: ONDANSETRON HCL INJ 2MG/ML 2ML 2 MG/ML VIAL IV PRN (20:24)
[2020-04-29] VITALS (8 sets, daily range): BP systolic 109–132; BP diastolic 51–77
[2020-04-29] MEDS: LEVALBUTEROL HCL SOLN NEBU 0.63 MG/3 ML NEB INH SCH ×4 (01:00→19:00)
[2020-04-29] MEDS: AMIODARONE HCL 200 MG TAB PO SCH (08:25)
[2020-04-29] MEDS: PANTOPRAZOLE SOD 40 MG TABEC PO SCH ×3 (08:25→16:57)
[2020-04-29] MEDS: MIDODRINE HCL 5 MG TABLET PO SCH ×3 (08:25→16:57)
[2020-04-29] MEDS: METOPROLOL SUCCINATE 25 MG TAB XL PO SCH ×2 (08:26→16:58)
[2020-04-29] MEDS: HYDROCODONE/APAP 10MG-325MG TAB PO PRN (08:26)
[2020-04-29] MEDS: DULOXETINE HCL 30 MG DELAYED RELEASE PO SCH (08:26)
[2020-04-29] MEDS: BALSAM PERU/CASTOR OIL 60 GM OINT...G. TP SCH (08:30)
[2020-04-29] MEDS: ONDANSETRON HCL INJ 2MG/ML 2ML 2 MG/ML VIAL IV PRN (14:48)
[2020-04-29] MEDS: EZETIMIBE 10 MG TAB PO SCH (16:12)
[2020-04-29] MEDS: TRAZODONE HCL 50 MG TAB PO SCH (21:58)
[2020-04-29] MEDS: ALPRAZOLAM 0.5 MG TAB PO PRN (21:59)
[2020-04-30] VITALS (8 sets, daily range): BP systolic 83–136; BP diastolic 47–65
[2020-04-30] MEDS: LEVALBUTEROL HCL SOLN NEBU 0.63 MG/3 ML NEB INH SCH ×4 (01:00→19:26)
[2020-04-30 04:55] LABS: BASOPHILS # (AUTO) 0.1 (0.0-0.1); BASOPHILS % 0.5 % (0.0-1.0); EOSINOPHILS # (AUTO) 0.7 (0.0-0.4); EOSINOPHILS % 3.1 % (0.0-6.0); LYMPHOCYTES # (AUTO) 4.4 (1.0-3.2); MEAN CORPUSCULAR HEMOGLOBIN 28.1 pg (28-32); MEAN CORPUSCULAR HGB CONC 31.3 g/dL (31-35); MEAN CORPUSCULAR VOLUME 89.9 fL (81-99); MONOCYTES # (AUTO) 3.1 (0.2-0.8); MONOCYTES % 14.4 % (4.4-11.3); NEUTROPHILS # (AUTO) 13.3 (2.1-6.9); NEUTROPHILS % 60.6 % (38.7-80.0); PLATELET COUNT 480 x10e3/uL (140-360); RED BLOOD COUNT 3.56 x10e6/uL (3.6-5.1); RED CELL DISTRIBUTION WIDTH 16.6 % (11.7-14.4)
[2020-04-30] MEDS ORDERED: SODIUM CHLORIDE 0.9% 250ML 250 ML ONE (04:56)
[2020-04-30] MEDS: PROMETHAZINE 25MG/ NS 50ML (IV) IV PRN ×2 (04:57→20:42)
[2020-04-30 05:36] LABS: ALBUMIN 3.3 g/dL (3.5-5.0); ALBUMIN/GLOBULIN RATIO 0.8 (0.8-2.0); ANION GAP 18.6 mmol/L (8-16); CALCIUM 9.9 mg/dL (8.4-10.2); CREATININE, SERUM 5.75 mg/dL (0.57-1.11); MAGNESIUM 1.9 MG/DL (1.3-2.1); POTASSIUM 3.6 mmol/L (3.5-5.1)
[2020-04-30] MEDS: MIDODRINE HCL 5 MG TABLET PO SCH ×3 (08:00→17:46)
[2020-04-30] MEDS: DULOXETINE HCL 30 MG DELAYED RELEASE PO SCH (08:50)
[2020-04-30] MEDS: METOPROLOL SUCCINATE 25 MG TAB XL PO SCH (08:50)
[2020-04-30] MEDS: AMIODARONE HCL 200 MG TAB PO SCH (08:50)
[2020-04-30] MEDS: PANTOPRAZOLE SOD 40 MG TABEC PO SCH ×3 (08:50→17:46)
[2020-04-30 12:14] LABS: BODY FLUID APPEARANCE CLOUDY; BODY FLUID COLOR RED; BODY FLUID TYPE PLEURAL
[2020-04-30 12:15] LABS: RBC,BODY FLUID 16409 cells/uL; WBC,BODY FLUID 594 cells/uL
[2020-04-30] MEDS: ONDANSETRON HCL INJ 2MG/ML 2ML 2 MG/ML VIAL IV PRN ×2 (12:39→17:46)
[2020-04-30 12:52] LABS: LYMPHOCYTES,BODY FLUID 39 %; MONO/MACROPHG,BODY FLUID 55 %; NEUTROPHILS,BODY FLUID 6 %
[2020-04-30] MEDS: LEVOFLOXACIN 250MG/D5W 50ML 50 ML IV SCH (13:00)
[2020-04-30] MEDS: BALSAM PERU/CASTOR OIL 60 GM OINT...G. TP SCH (13:19)
[2020-04-30] MEDS: EZETIMIBE 10 MG TAB PO SCH (17:50)
[2020-04-30] MEDS: TRAZODONE HCL 50 MG TAB PO SCH (21:33)
[2020-04-30] MEDS: ALPRAZOLAM 0.5 MG TAB PO PRN (21:33)
[2020-04-30] MEDS: HYDROCODONE/APAP 10MG-325MG TAB PO PRN (21:33)
[2020-05-01] VITALS (11 sets, daily range): BP systolic 78–114; BP diastolic 35–56
[2020-05-01] MEDS: LEVALBUTEROL HCL SOLN NEBU 0.63 MG/3 ML NEB INH SCH ×4 (00:24→20:12)
[2020-05-01 08:30] LABS: BASOPHILS # (AUTO) 0.1 (0.0-0.1); BASOPHILS % 0.6 % (0.0-1.0); EOSINOPHILS # (AUTO) 0.6 (0.0-0.4); EOSINOPHILS % 3.3 % (0.0-6.0); HEMATOCRIT 30.9 % (34.2-44.1); LYMPHOCYTES # (AUTO) 3.3 (1.0-3.2); LYMPHOCYTES % 17.9 % (18.0-39.1); MEAN CORPUSCULAR HGB CONC 32.4 g/dL (31-35); MEAN CORPUSCULAR VOLUME 89.6 fL (81-99); MONOCYTES # (AUTO) 2.7 (0.2-0.8); MONOCYTES % 14.9 % (4.4-11.3); NEUTROPHILS # (AUTO) 11.2 (2.1-6.9); NEUTROPHILS % 61.5 % (38.7-80.0); PLATELET COUNT 542 x10e3/uL (140-360); RED BLOOD COUNT 3.45 x10e6/uL (3.6-5.1); RED CELL DISTRIBUTION WIDTH 16.6 % (11.7-14.4)
[2020-05-01] MEDS: PANTOPRAZOLE SOD 40 MG TABEC PO SCH ×3 (08:30→16:26)
[2020-05-01] MEDS: MIDODRINE HCL 5 MG TABLET PO SCH ×3 (08:45→16:26)
[2020-05-01] MEDS: AMIODARONE HCL 200 MG TAB PO SCH (08:45)
[2020-05-01] MEDS: DULOXETINE HCL 30 MG DELAYED RELEASE PO SCH (08:45)
[2020-05-01 08:54] LABS: ANION GAP 17.2 mmol/L (8-16); CALCIUM 9.2 mg/dL (8.4-10.2); CREATININE, SERUM 3.22 mg/dL (0.57-1.11); POTASSIUM 3.2 mmol/L (3.5-5.1)
[2020-05-01] MEDS: CLOPIDOGREL BISULFATE 75 MG TAB PO SCH (09:00)
[2020-05-01] MEDS: BALSAM PERU/CASTOR OIL 60 GM OINT...G. TP SCH (09:00)
[2020-05-01] MEDS: ONDANSETRON HCL INJ 2MG/ML 2ML 2 MG/ML VIAL IV PRN ×2 (09:40→18:05)
[2020-05-01] MEDS ORDERED: POTASSIUM CHLORIDE 10MEQ EA PO ONE (10:00)
[2020-05-01 10:01] LABS: BAND NEUTROPHILS % (MANUAL) 1 %; EOSINOPHILS % (MANUAL) 3 % (0-7); LYMPHOCYTES % (MANUAL) 15 % (19-48); MONOCYTES % (MANUAL) 13 % (3.4-9.0); NEUTROPHILS % (MANUAL) 67 % (40-74)
[2020-05-01 10:02] LABS: ANISOCYTOSIS SLIGHT; PLATELET ESTIMATE MODERATELY INCREASED; TEAR DROP CELLS FEW
[2020-05-01 10:10] LABS: TARGET CELLS FEW
[2020-05-01 10:11] LABS: PLATELET MORPHOLOGY COMMENT RARE EDTA CLUMPING; RBC MORPHOLOGY COMMENT NORMAL
[2020-05-01] MEDS: PROMETHAZINE 25MG/ NS 50ML (IV) IV PRN ×2 (11:49→22:03)
[2020-05-01] MEDS: EZETIMIBE 10 MG TAB PO SCH (16:26)
[2020-05-01] MEDS: TRAZODONE HCL 50 MG TAB PO SCH (20:56)
[2020-05-02] MEDS: LEVALBUTEROL HCL SOLN NEBU 0.63 MG/3 ML NEB INH SCH ×4 (01:00→18:57)
[2020-05-02] MEDS ORDERED: ALPRAZOLAM 0.5 MG TAB PO PRN (04:45)
[2020-05-02 04:51] VITALS: BP 113/40
[2020-05-02] MEDS ORDERED: LOPERAMIDE HCL 2 MG CAP PO PRN (05:30)
[2020-05-02] MEDS: PANTOPRAZOLE SOD 40 MG TABEC PO SCH ×3 (07:30→16:11)
[2020-05-02 07:43] VITALS: BP 96/47
[2020-05-02] MEDS: MIDODRINE HCL 5 MG TABLET PO SCH ×3 (08:00→16:00)
[2020-05-02] MEDS: ONDANSETRON HCL INJ 2MG/ML 2ML 2 MG/ML VIAL IV PRN (08:02)
[2020-05-02 08:33] VITALS: BP 96/47
[2020-05-02] MEDS: AMIODARONE HCL 200 MG TAB PO SCH (08:53)
[2020-05-02] MEDS: DULOXETINE HCL 30 MG DELAYED RELEASE PO SCH (08:53)
[2020-05-02] MEDS: CLOPIDOGREL BISULFATE 75 MG TAB PO SCH (08:53)
[2020-05-02] MEDS: BALSAM PERU/CASTOR OIL 60 GM OINT...G. TP SCH (09:00)
[2020-05-02 11:12] VITALS: BP 99/58
[2020-05-02] MEDS: HYDROCODONE/APAP 10MG-325MG TAB PO PRN ×2 (12:00→17:00)
[2020-05-02 13:09] LABS: BODY FLUID APPEARANCE CLOUDY; BODY FLUID COLOR YELLOW; BODY FLUID TYPE PLEURAL
[2020-05-02 13:10] LABS: RBC,BODY FLUID 5732 cells/uL; WBC,BODY FLUID 644 cells/uL
[2020-05-02 14:00] LABS: LYMPHOCYTES,BODY FLUID 89 %; MONO/MACROPHG,BODY FLUID 9 %; NEUTROPHILS,BODY FLUID 2 %
[2020-05-02] MEDS: EZETIMIBE 10 MG TAB PO SCH (16:11)
[2020-05-02 19:00] VITALS: BP 83/45
[2020-05-02 21:00] VITALS: BP 83/45
[2020-05-02] MEDS: TRAZODONE HCL 50 MG TAB PO SCH (21:00)
[2020-05-03] VITALS (8 sets, daily range): BP systolic 89–114; BP diastolic 45–60
[2020-05-03] MEDS: LEVALBUTEROL HCL SOLN NEBU 0.63 MG/3 ML NEB INH SCH ×4 (01:00→18:53)
[2020-05-03 06:21] LABS: BASOPHILS # (AUTO) 0.1 (0.0-0.1); BASOPHILS % 0.6 % (0.0-1.0); EOSINOPHILS # (AUTO) 0.7 (0.0-0.4); EOSINOPHILS % 4.6 % (0.0-6.0); HEMOGLOBIN 9.5 g/dL (12.0-16.0); LYMPHOCYTES % 19.6 % (18.0-39.1); MEAN CORPUSCULAR HEMOGLOBIN 28.7 pg (28-32); MEAN CORPUSCULAR HGB CONC 31.7 g/dL (31-35); MEAN CORPUSCULAR VOLUME 90.6 fL (81-99); MONOCYTES # (AUTO) 2.1 (0.2-0.8); MONOCYTES % 13.8 % (4.4-11.3); NEUTROPHILS # (AUTO) 9.1 (2.1-6.9); NEUTROPHILS % 59.5 % (38.7-80.0); PLATELET COUNT 685 x10e3/uL (140-360); RED BLOOD COUNT 3.31 x10e6/uL (3.6-5.1); RED CELL DISTRIBUTION WIDTH 16.9 % (11.7-14.4)
[2020-05-03 06:57] LABS: ALBUMIN 2.8 g/dL (3.5-5.0); ALBUMIN/GLOBULIN RATIO 0.8 (0.8-2.0); ANION GAP 15.4 mmol/L (8-16); CALCIUM 8.9 mg/dL (8.4-10.2); CREATININE, SERUM 2.32 mg/dL (0.57-1.11); MAGNESIUM 1.7 MG/DL (1.3-2.1); POTASSIUM 3.4 mmol/L (3.5-5.1)
[2020-05-03] MEDS: PANTOPRAZOLE SOD 40 MG TABEC PO SCH ×3 (07:30→16:30)
[2020-05-03] MEDS: MIDODRINE HCL 5 MG TABLET PO SCH ×3 (08:00→16:00)
[2020-05-03] MEDS: ONDANSETRON HCL INJ 2MG/ML 2ML 2 MG/ML VIAL IV PRN (08:30)
[2020-05-03] MEDS: DULOXETINE HCL 30 MG DELAYED RELEASE PO SCH (08:56)
[2020-05-03] MEDS: BALSAM PERU/CASTOR OIL 60 GM OINT...G. TP SCH (08:56)
[2020-05-03] MEDS: CLOPIDOGREL BISULFATE 75 MG TAB PO SCH (08:56)
[2020-05-03] MEDS: AMIODARONE HCL 200 MG TAB PO SCH (08:56)
[2020-05-03] MEDS: HYDROCODONE/APAP 10MG-325MG TAB PO PRN ×2 (10:17→15:25)
[2020-05-03 11:06] LABS: ANISOCYTOSIS SLIGHT; EOSINOPHILS % (MANUAL) 5 % (0-7); LYMPHOCYTES % (MANUAL) 22 % (19-48); MONOCYTES % (MANUAL) 11 % (3.4-9.0); NEUTROPHILS % (MANUAL) 55 % (40-74); PLATELET ESTIMATE MODERATELY INCREASED; PLATELET MORPHOLOGY COMMENT RARE EDTA CLUMPING
[2020-05-03 11:07] LABS: GIANT PLATELETS FEW; RBC MORPHOLOGY COMMENT NORMAL
[2020-05-03] MEDS: PROMETHAZINE 25MG/ NS 50ML (IV) IV PRN (12:00)
[2020-05-03] MEDS: EZETIMIBE 10 MG TAB PO SCH (16:59)
[2020-05-03] MEDS: TRAZODONE HCL 50 MG TAB PO SCH (20:58)
[2020-05-04] VITALS: BP 109/57
[2020-05-04] MEDS: LEVALBUTEROL HCL SOLN NEBU 0.63 MG/3 ML NEB INH SCH ×4 (01:00→19:00)
[2020-05-04 04:00] VITALS: BP 124/59
[2020-05-04 08:00] VITALS: BP 112/56
[2020-05-04] MEDS: PANTOPRAZOLE SOD 40 MG TABEC PO SCH ×3 (08:30→17:05)
[2020-05-04] MEDS: MIDODRINE HCL 5 MG TABLET PO SCH ×3 (08:30→17:00)
[2020-05-04 08:57] VITALS: BP 112/56
[2020-05-04] MEDS: HYDROCODONE/APAP 10MG-325MG TAB PO PRN (09:37)
[2020-05-04] MEDS: ONDANSETRON HCL INJ 2MG/ML 2ML 2 MG/ML VIAL IV PRN (09:37)
[2020-05-04] MEDS: DULOXETINE HCL 30 MG DELAYED RELEASE PO SCH (09:38)
[2020-05-04] MEDS: AMIODARONE HCL 200 MG TAB PO SCH (09:38)
[2020-05-04] MEDS: CLOPIDOGREL BISULFATE 75 MG TAB PO SCH (09:38)
[2020-05-04 12:00] VITALS: BP 106/62
[2020-05-04] MEDS ORDERED: POTASSIUM CHLORIDE 10MEQ EA PO ONE (12:00)
[2020-05-04] MEDS: BALSAM PERU/CASTOR OIL 60 GM OINT...G. TP SCH (13:06)
[2020-05-04 16:00] VITALS: BP 96/58
[2020-05-04] MEDS: EZETIMIBE 10 MG TAB PO SCH (17:05)
[2020-05-04] MEDS ORDERED: [UNRECOGNIZED DRUG - OTHER] (17:34)
[2020-05-04] MEDS ORDERED: PHENERGEN PO (17:35)
[2020-05-04] MEDS ORDERED: HEPARIN 500 UNITS/5ML MDV INJ NR (18:30)
[2020-05-04] MEDS ORDERED: SODIUM CHLORIDE 0.9% 250ML 500 ML IV PRN (18:45)
[2020-05-04] MEDS ORDERED: ALBUMIN 25% 12.5GM 0.25 GM/ML BTL IV PRN (18:45)
[2020-05-04] MEDS ORDERED: SODIUM CHLORIDE 0.9% 1000ML 2,000 ML IV PRN (18:45)
[2020-05-04] MEDS ORDERED: HEPARIN SOD (PORCINE) 1000 UNIT/ML SDV IV PRN (18:45)
== END 2020-05-04 20:05 | disposition home health service (06) | DRG 871 ==
LOC: ER 11:23 → ERHOLD 14:08 → CATH LAB V 04-25 09:00 → IMCU 04-25 16:45 → MED/SURG2 04-27 00:44
PROVIDERS: ADMIT Internal Medicine; ATTEND Internal Medicine
PROC: 4A023N7 Measurement of Cardiac Sampling and Pressure, Left Heart, Percutaneous Approach (ICD-10-PCS; principal; 2020-04-25)
PROC: B2111ZZ Fluoroscopy of Multiple Coronary Arteries using Low Osmolar Contrast (ICD-10-PCS; 2020-04-25)
PROC: B2151ZZ Fluoroscopy of Left Heart using Low Osmolar Contrast (ICD-10-PCS; 2020-04-25)
PROC: 0W9B3ZZ Drainage of Left Pleural Cavity, Percutaneous Approach (ICD-10-PCS; 2020-04-30)
PROC: 0W993ZZ Drainage of Right Pleural Cavity, Percutaneous Approach (ICD-10-PCS; 2020-05-01)
DX: A41.9 Sepsis, unspecified organism (principal); N18.6 End stage renal disease; J18.9 Pneumonia, unspecified organism; J96.22 Acute and chronic respiratory failure with hypercapnia; J96.21 Acute and chronic respiratory failure with hypoxia; I50.33 Acute on chronic diastolic (congestive) heart failure; I21.4 Non-ST elevation (NSTEMI) myocardial infarction; I13.2 Hypertensive heart and chronic kidney disease with heart failure and with stage 5 chronic kidney disease, or end stage renal disease; E66.2 Morbid (severe) obesity with alveolar hypoventilation; I31.3 Pericardial effusion (noninflammatory); E11.22 Type 2 diabetes mellitus with diabetic chronic kidney disease; Z99.2 Dependence on renal dialysis; Z90.5 Acquired absence of kidney; Z90.81 Acquired absence of spleen; Z87.891 Personal history of nicotine dependence; Z88.1 Allergy status to other antibiotic agents; Z88.5 Allergy status to narcotic agent; Z88.0 Allergy status to penicillin; Z88.2 Allergy status to sulfonamides; Z88.8 Allergy status to other drugs, medicaments and biological substances; G47.33 Obstructive sleep apnea (adult) (pediatric); D63.1 Anemia in chronic kidney disease; Z68.36 Body mass index [BMI] 36.0-36.9, adult; Z85.528 Personal history of other malignant neoplasm of kidney; F41.9 Anxiety disorder, unspecified; I48.91 Unspecified atrial fibrillation; Z20.822 Contact with and (suspected) exposure to COVID-19; Z95.5 Presence of coronary angioplasty implant and graft
CPT/HCPCS: 32555; 36415; 36600; 71045; 71046; 71250; 74470; 80048; 80053; 80061; 80162; 82550; 82553; 82805; 82945; 82948; 83615; 83735; 83880; 84100; 84157; 84484; 85025; 85610; 85730; 86704; 86706; 87040; 87070; 87205; 87340; 88112; 88305; 89051; 93005; 93306; 93458; 94640; 94660; 97139; 99152; 99153; 99251; 99285; C1887; J1644; J1940; J1956; J2001; J2250; J2405; J2550; J3010; J3410; J7030; J7050; Q9967; U0002

== ENCOUNTER 2020-06-25 14:47 | Inpatient (IN) | payer BC, MEDICARE ==
[~2020-06-25] VITALS: Ht 152.4 cm; Wt 90.7 kg
[~2020-06-25 14:47] MED LIST changes: +PHENERGEN PO; +[UNRECOGNIZED DRUG - OTHER]
[2020-06-25] MEDS ORDERED: ASPIRIN 81 MG CHEW TAB PO ONE ×2 (15:15→16:45)
[2020-06-25 15:21] LABS: BASOPHILS # (AUTO) 0.1 (0.0-0.1); BASOPHILS % 0.6 % (0.0-1.0); EOSINOPHILS # (AUTO) 0.1 (0.0-0.4); EOSINOPHILS % 0.4 % (0.0-6.0); HEMATOCRIT 37.9 % (34.2-44.1); HEMOGLOBIN 11.8 g/dL (12.0-16.0); LYMPHOCYTES # (AUTO) 1.4 (1.0-3.2); LYMPHOCYTES % 8.8 % (18.0-39.1); MEAN CORPUSCULAR HEMOGLOBIN 27.9 pg (28-32); MEAN CORPUSCULAR HGB CONC 31.1 g/dL (31-35); MEAN CORPUSCULAR VOLUME 89.6 fL (81-99); MONOCYTES # (AUTO) 0.8 (0.2-0.8); MONOCYTES % 5.1 % (4.4-11.3); NEUTROPHILS # (AUTO) 13.2 (2.1-6.9); NEUTROPHILS % 84.5 % (38.7-80.0); PLATELET COUNT 757 x10e3/uL (140-360); RED BLOOD COUNT 4.23 x10e6/uL (3.6-5.1); RED CELL DISTRIBUTION WIDTH 18.2 % (11.7-14.4)
[2020-06-25 15:46] LABS: ALBUMIN 2.4 g/dL (3.5-5.0); ALBUMIN/GLOBULIN RATIO 0.5 (0.8-2.0); ANION GAP 17.7 mmol/L (8-16); CALCIUM 8.7 mg/dL (8.4-10.2); CREATININE, SERUM 4.39 mg/dL (0.57-1.11); POTASSIUM 3.7 mmol/L (3.5-5.1)
[2020-06-25 15:54] LABS: CREATINE KINASE MB 1.6 ng/mL (0-5.0)
[2020-06-25] MEDS ORDERED: LEVOFLOXACIN 500MG/D5W 100ML 100 ML IV SCH (16:00)
[2020-06-25 18:45] VITALS: BP 148/75
[2020-06-25 19:00] VITALS: BP 148/75
[2020-06-25 20:21] VITALS: BP 145/80
[2020-06-25] MEDS ORDERED: MELATONIN3 M1 PO (20:32)
[2020-06-25] MEDS ORDERED: MELATONIN 5 MG1 EACH PO (20:38)
[2020-06-25 20:55] VITALS: BP 145/80
[2020-06-25] MEDS ORDERED: ALBUMIN 25% 12.5GM 0.25 GM/ML BTL IV ONE (21:15)
[2020-06-25] MEDS ORDERED: SODIUM CHLORIDE 0.9% 1000ML 1,000 ML ONE (21:22)
[2020-06-26] VITALS (8 sets, daily range): BP systolic 120–174; BP diastolic 70–100
[2020-06-26 02:10] LABS: CREATINE KINASE MB 1.3 ng/mL (0-5.0)
[2020-06-26] MEDS ORDERED: METHYLPREDNISOLONE SOD SUCC 125 MG/2ML VIAL IV STA (02:44)
[2020-06-26] MEDS ORDERED: LEVALBUTEROL HCL SOLN NEBU 1.25 MG/3 ML NEB INH PRN (02:45)
[2020-06-26 02:53] LABS: BASOPHILS # (AUTO) 0.1 (0.0-0.1); BASOPHILS % 0.6 % (0.0-1.0); EOSINOPHILS # (AUTO) 0.2 (0.0-0.4); HEMOGLOBIN 11.3 g/dL (12.0-16.0); LYMPHOCYTES # (AUTO) 5.2 (1.0-3.2); LYMPHOCYTES % 28.3 % (18.0-39.1); MEAN CORPUSCULAR HEMOGLOBIN 28.2 pg (28-32); MEAN CORPUSCULAR HGB CONC 31.4 g/dL (31-35); MEAN CORPUSCULAR VOLUME 89.8 fL (81-99); MONOCYTES # (AUTO) 1.3 (0.2-0.8); NEUTROPHILS # (AUTO) 11.5 (2.1-6.9); NEUTROPHILS % 62.6 % (38.7-80.0); PLATELET COUNT 670 x10e3/uL (140-360); RED BLOOD COUNT 4.01 x10e6/uL (3.6-5.1); RED CELL DISTRIBUTION WIDTH 18.2 % (11.7-14.4)
[2020-06-26] MEDS ORDERED: ALBUTEROL SULF 0.083% NEB SOLN 3 ML NEB ONE (02:57)
[2020-06-26] MEDS ORDERED: METHYLPREDNISOLONE SOD SUCC 125 MG/2ML VIAL ONE (02:59)
[2020-06-26] MEDS ORDERED: LEVALBUTEROL HCL SOLN NEBU 1.25 MG/3 ML NEB ONE (03:05)
[2020-06-26 03:13] LABS: ALBUMIN 3.3 g/dL (3.5-5.0); ALBUMIN/GLOBULIN RATIO 0.8 (0.8-2.0); ANION GAP 18.1 mmol/L (8-16); CALCIUM 9.2 mg/dL (8.4-10.2); CREATININE, SERUM 3.72 mg/dL (0.57-1.11); POTASSIUM 4.1 mmol/L (3.5-5.1)
[2020-06-26 04:35] LABS: ABG HCO3 29 mmol/L (22-26); ABG PCO2 54 mmHg (35-45); ABG PH 7.34 (7.35-7.45); ABG PO2 75 mmHg (80-105)
[2020-06-26 04:36] LABS: ABG TCO2 30
[2020-06-26] MEDS: BISACODYL 5 MG TAB EC PO SCH ×3 (05:48→22:10)
[2020-06-26 06:21] LABS: BASOPHILS # (AUTO) 0.1 (0.0-0.1); BASOPHILS % 0.3 % (0.0-1.0); EOSINOPHILS # (AUTO) 0.1 (0.0-0.4); EOSINOPHILS % 0.3 % (0.0-6.0); HEMATOCRIT 32.5 % (34.2-44.1); HEMOGLOBIN 10.4 g/dL (12.0-16.0); LYMPHOCYTES # (AUTO) 0.3 (1.0-3.2); LYMPHOCYTES % 1.9 % (18.0-39.1); MEAN CORPUSCULAR HEMOGLOBIN 28.4 pg (28-32); MEAN CORPUSCULAR VOLUME 88.8 fL (81-99); MONOCYTES # (AUTO) 0.2 (0.2-0.8); MONOCYTES % 1.2 % (4.4-11.3); NEUTROPHILS % 95.7 % (38.7-80.0); PLATELET COUNT 647 x10e3/uL (140-360); RED BLOOD COUNT 3.66 x10e6/uL (3.6-5.1)
[2020-06-26 06:44] LABS: ALBUMIN/GLOBULIN RATIO 0.8 (0.8-2.0); ANION GAP 16.6 mmol/L (8-16); CALCIUM 8.8 mg/dL (8.4-10.2); CREATININE, SERUM 3.93 mg/dL (0.57-1.11); POTASSIUM 3.6 mmol/L (3.5-5.1)
[2020-06-26 07:08] LABS: CREATINE KINASE MB 1.6 ng/mL (0-5.0)
[2020-06-26 08:23] LABS: LYMPHOCYTES % (MANUAL) 3 % (19-48); NEUTROPHILS % (MANUAL) 97 % (40-74)
[2020-06-26] MEDS: DULOXETINE HCL 30 MG DELAYED RELEASE PO SCH (08:50)
[2020-06-26] MEDS: ALPRAZOLAM 1 MG TAB PO SCH ×3 (08:50→22:10)
[2020-06-26] MEDS: DICYCLOMINE HCL 10 MG CAP PO SCH ×2 (08:50→17:21)
[2020-06-26] MEDS: METOPROLOL SUCCINATE 25 MG TAB XL PO SCH (08:50)
[2020-06-26] MEDS: CLOPIDOGREL BISULFATE 75 MG TAB PO SCH (08:50)
[2020-06-26] MEDS: AMIODARONE HCL 200 MG TAB PO SCH (08:50)
[2020-06-26] MEDS ORDERED: HEPARIN SOD (PORCINE) 1000 UNIT/ML SDV IV PRN (11:45)
[2020-06-26] MEDS ORDERED: SODIUM CHLORIDE 0.9% 250ML 500 ML IV PRN (11:45)
[2020-06-26] MEDS ORDERED: ALBUMIN 25% 12.5GM 0.25 GM/ML BTL IV PRN (11:45)
[2020-06-26] MEDS ORDERED: SODIUM CHLORIDE 0.9% 1000ML 2,000 ML IV PRN (11:45)
[2020-06-26] MEDS: APIXABAN 5 MG TABLET PO SCH ×2 (11:49→17:21)
[2020-06-26] MEDS: MIDODRINE HCL 5 MG TABLET PO SCH ×2 (12:09→17:21)
[2020-06-26] MEDS: PANTOPRAZOLE SOD 40 MG TABEC PO SCH (12:09)
[2020-06-26] MEDS: EZETIMIBE 10 MG TAB PO SCH (17:21)
[2020-06-26] MEDS: HYDROCODONE/APAP 10MG-325MG TAB PO PRN (17:27)
[2020-06-26] MEDS ORDERED: ONDANSETRON HCL INJ 2MG/ML 2ML 2 MG/ML VIAL IV PRN (18:00)
[2020-06-26] MEDS: MELATONIN 5 MG TABLET PO SCH (23:47)
[2020-06-27] VITALS (8 sets, daily range): BP systolic 125–155; BP diastolic 69–84
[2020-06-27] MEDS ORDERED: SOD PHOSPHATE/SOD BIPHOSPHATE ENEMA 132 ML BTL PR ONE (05:00)
[2020-06-27] MEDS: BISACODYL 5 MG TAB EC PO SCH ×3 (05:46→22:00)
[2020-06-27] MEDS: PANTOPRAZOLE SOD 40 MG TABEC PO SCH (08:30)
[2020-06-27] MEDS: METOPROLOL SUCCINATE 25 MG TAB XL PO SCH (09:00)
[2020-06-27] MEDS: ALPRAZOLAM 1 MG TAB PO SCH ×3 (09:24→21:00)
[2020-06-27] MEDS: MIDODRINE HCL 5 MG TABLET PO SCH ×2 (09:25→16:19)
[2020-06-27] MEDS: APIXABAN 5 MG TABLET PO SCH ×2 (09:25→16:19)
[2020-06-27] MEDS: DULOXETINE HCL 30 MG DELAYED RELEASE PO SCH (09:25)
[2020-06-27] MEDS: AMIODARONE HCL 200 MG TAB PO SCH (09:25)
[2020-06-27] MEDS: DICYCLOMINE HCL 10 MG CAP PO SCH ×2 (09:25→16:19)
[2020-06-27] MEDS: CLOPIDOGREL BISULFATE 75 MG TAB PO SCH (09:25)
[2020-06-27] MEDS: EZETIMIBE 10 MG TAB PO SCH (16:19)
[2020-06-27] MEDS ORDERED: SODIUM CHLORIDE 0.9% 250ML 250 ML ONE (17:30)
[2020-06-27] MEDS ORDERED: LEVOFLOXACIN 250MG/D5W 50ML 50 ML IV SCH (18:00)
[2020-06-27] MEDS: HYDROCODONE/APAP 10MG-325MG TAB PO PRN (19:31)
[2020-06-27] MEDS: MELATONIN 5 MG TABLET PO SCH (21:00)
[2020-06-27] MEDS ORDERED: BISACODYL 5 MG TAB EC PO PRN (22:30)
[2020-06-28] VITALS (8 sets, daily range): BP systolic 115–177; BP diastolic 58–74
[2020-06-28 06:20] LABS: BASOPHILS # (AUTO) 0.1 (0.0-0.1); BASOPHILS % 0.5 % (0.0-1.0); EOSINOPHILS # (AUTO) 0.2 (0.0-0.4); EOSINOPHILS % 1.7 % (0.0-6.0); HEMATOCRIT 33.2 % (34.2-44.1); HEMOGLOBIN 10.5 g/dL (12.0-16.0); LYMPHOCYTES # (AUTO) 3.4 (1.0-3.2); LYMPHOCYTES % 25.4 % (18.0-39.1); MEAN CORPUSCULAR HEMOGLOBIN 28.2 pg (28-32); MEAN CORPUSCULAR HGB CONC 31.6 g/dL (31-35); MEAN CORPUSCULAR VOLUME 89.2 fL (81-99); MONOCYTES % 7.4 % (4.4-11.3); NEUTROPHILS # (AUTO) 8.5 (2.1-6.9); NEUTROPHILS % 64.6 % (38.7-80.0); PLATELET COUNT 613 x10e3/uL (140-360); RED BLOOD COUNT 3.72 x10e6/uL (3.6-5.1); RED CELL DISTRIBUTION WIDTH 18.3 % (11.7-14.4)
[2020-06-28 06:47] LABS: ALBUMIN 2.5 g/dL (3.5-5.0); ALBUMIN/GLOBULIN RATIO 0.7 (0.8-2.0); ANION GAP 12.4 mmol/L (8-16); CALCIUM 8.5 mg/dL (8.4-10.2); CREATININE, SERUM 3.71 mg/dL (0.57-1.11); MAGNESIUM 2.4 MG/DL (1.3-2.1); POTASSIUM 3.4 mmol/L (3.5-5.1)
[2020-06-28] MEDS: PANTOPRAZOLE SOD 40 MG TABEC PO SCH (07:30)
[2020-06-28] MEDS: APIXABAN 5 MG TABLET PO SCH ×2 (08:32→16:44)
[2020-06-28] MEDS: DULOXETINE HCL 30 MG DELAYED RELEASE PO SCH (08:32)
[2020-06-28] MEDS: MIDODRINE HCL 5 MG TABLET PO SCH ×2 (08:32→16:44)
[2020-06-28] MEDS: AMIODARONE HCL 200 MG TAB PO SCH (08:32)
[2020-06-28] MEDS: ALPRAZOLAM 1 MG TAB PO SCH ×3 (08:32→20:58)
[2020-06-28] MEDS: DICYCLOMINE HCL 10 MG CAP PO SCH ×2 (08:32→16:44)
[2020-06-28] MEDS: CLOPIDOGREL BISULFATE 75 MG TAB PO SCH (08:32)
[2020-06-28] MEDS: METOPROLOL SUCCINATE 25 MG TAB XL PO SCH (08:32)
[2020-06-28] MEDS: HYDROCODONE/APAP 10MG-325MG TAB PO PRN (12:45)
[2020-06-28] MEDS: EZETIMIBE 10 MG TAB PO SCH (16:44)
[2020-06-28] MEDS: MELATONIN 5 MG TABLET PO SCH (20:58)
[2020-06-29] VITALS: BP 138/63
[2020-06-29 04:00] VITALS: BP 144/67
[2020-06-29 08:01] VITALS: BP 144/67
[2020-06-29] MEDS ORDERED: ONDANSETRON HCL 4 MG ORAL DISINTEGRATING TAB PO PRN (08:15)
[2020-06-29 08:55] VITALS: BP 174/73
[2020-06-29] MEDS: PANTOPRAZOLE SOD 40 MG TABEC PO SCH (08:55)
[2020-06-29] MEDS: DICYCLOMINE HCL 10 MG CAP PO SCH (08:55)
[2020-06-29] MEDS: DULOXETINE HCL 30 MG DELAYED RELEASE PO SCH (08:55)
[2020-06-29] MEDS: APIXABAN 5 MG TABLET PO SCH (08:55)
[2020-06-29] MEDS: AMIODARONE HCL 200 MG TAB PO SCH (08:55)
[2020-06-29] MEDS: CLOPIDOGREL BISULFATE 75 MG TAB PO SCH (08:55)
[2020-06-29] MEDS: ALPRAZOLAM 1 MG TAB PO SCH (08:56)
[2020-06-29] MEDS: METOPROLOL SUCCINATE 25 MG TAB XL PO SCH (08:56)
[2020-06-29] MEDS: MIDODRINE HCL 5 MG TABLET PO SCH (09:00)
[2020-06-29 12:02] VITALS: BP 178/78
[2020-06-29] MEDS ORDERED: HEPARIN 500 UNITS/5ML MDV INJ ONE (13:30)
[2020-06-29] MEDS ORDERED: CLONIDINE HCL 0.2 MG TAB PO ONE (13:45)
== END 2020-06-29 14:08 | disposition home or self-care (01) | DRG 291 ==
LOC: ER 15:00 → ERHOLD 16:36 → MED/SURG2 18:34
PROVIDERS: ADMIT Internal Medicine; ATTEND Internal Medicine
PROC: 5A1D70Z Performance of Urinary Filtration, Intermittent, Less than 6 Hours Per Day (ICD-10-PCS; principal; 2020-06-25)
DX: I13.0 Hypertensive heart and chronic kidney disease with heart failure and stage 1 through stage 4 chronic kidney disease, or unspecified chronic kidney disease (principal); N18.6 End stage renal disease; I50.33 Acute on chronic diastolic (congestive) heart failure; J96.00 Acute respiratory failure, unspecified whether with hypoxia or hypercapnia; J18.9 Pneumonia, unspecified organism; N39.0 Urinary tract infection, site not specified; E87.70 Fluid overload, unspecified; I25.10 Atherosclerotic heart disease of native coronary artery without angina pectoris; Z20.822 Contact with and (suspected) exposure to COVID-19
CPT/HCPCS: 36415; 36600; 71045; 80053; 82550; 82553; 82805; 83605; 83735; 83880; 84484; 85025; 86704; 87040; 87340; 87350; 93005; 93306; 94640; 97139; 99251; 99284; J1644; J1956; J2405; J2930; J7030; J7050; U0002

== ENCOUNTER 2020-09-24 12:15 | Inpatient (IN) | payer BC, MEDICARE ==
[~2020-09-24] VITALS: Ht 154.9 cm; Wt 90.7 kg
[~2020-09-24 12:15] MED LIST changes: +MELATONIN 5 MG1 EACH PO; +MELATONIN3 M1 PO
[2020-09-24 12:58] LABS: BASOPHILS # (AUTO) 0.1 (0.0-0.1); BASOPHILS % 0.6 % (0.0-1.0); EOSINOPHILS # (AUTO) 0.1 (0.0-0.4); EOSINOPHILS % 0.8 % (0.0-6.0); HEMATOCRIT 35.6 % (34.2-44.1); HEMOGLOBIN 11.7 g/dL (12.0-16.0); LYMPHOCYTES # (AUTO) 1.4 (1.0-3.2); LYMPHOCYTES % 9.5 % (18.0-39.1); MEAN CORPUSCULAR HEMOGLOBIN 29.3 pg (28-32); MEAN CORPUSCULAR HGB CONC 32.9 g/dL (31-35); MONOCYTES # (AUTO) 1.2 (0.2-0.8); MONOCYTES % 7.9 % (4.4-11.3); NEUTROPHILS # (AUTO) 12.2 (2.1-6.9); NEUTROPHILS % 80.6 % (38.7-80.0); PLATELET COUNT 499 x10e3/uL (140-360); RED CELL DISTRIBUTION WIDTH 17.3 % (11.7-14.4)
[2020-09-24 13:18] LABS: ALBUMIN 2.7 g/dL (3.5-5.0); ALBUMIN/GLOBULIN RATIO 0.7 (0.8-2.0); ANION GAP 20.2 mmol/L (8-16); CALCIUM 8.4 mg/dL (8.4-10.2); CREATININE, SERUM 5.52 mg/dL (0.57-1.11); POTASSIUM 5.2 mmol/L (3.5-5.1)
[2020-09-24] MEDS ORDERED: IOPAMIDOL 370 MG/ML 200 ML INFUS..BTL INJ ONE (15:08)
[2020-09-24] MEDS ORDERED: SODIUM CHLORIDE 0.9% 50ML 50 ML ONE (15:08)
[2020-09-24] MEDS ORDERED: ONDANSETRON HCL INJ 2MG/ML 2ML 2 MG/ML VIAL IV STA (15:09)
[2020-09-24] MEDS ORDERED: MORPHINE SULFATE INJ 2 MG/ML SYR IV PRN (17:15)
[2020-09-24 20:30] VITALS: BP 152/76
[2020-09-24] MEDS ORDERED: SODIUM CHLORIDE 0.9% 1000ML 1,000 ML ONE (20:45)
[2020-09-24 20:56] VITALS: BP 152/76
[2020-09-24] MEDS: ONDANSETRON HCL INJ 2MG/ML 2ML 2 MG/ML VIAL IV PRN (22:56)
[2020-09-25] VITALS (7 sets, daily range): BP systolic 119–158; BP diastolic 3–79
[2020-09-25] MEDS ORDERED: DIPHENHYDRAMINE HCL INJ 50 MG/ML VIAL IV PRN (04:30)
[2020-09-25] MEDS: HYDROMORPHONE 1MG/1ML INJ IV PRN ×3 (04:52→22:33)
[2020-09-25 05:20] LABS: BASOPHILS # (AUTO) 0.1 (0.0-0.1); BASOPHILS % 0.5 % (0.0-1.0); EOSINOPHILS # (AUTO) 0.1 (0.0-0.4); EOSINOPHILS % 0.3 % (0.0-6.0); HEMOGLOBIN 11.3 g/dL (12.0-16.0); LYMPHOCYTES # (AUTO) 2.2 (1.0-3.2); LYMPHOCYTES % 12.4 % (18.0-39.1); MEAN CORPUSCULAR HEMOGLOBIN 29.3 pg (28-32); MEAN CORPUSCULAR HGB CONC 33.2 g/dL (31-35); MEAN CORPUSCULAR VOLUME 88.1 fL (81-99); MONOCYTES # (AUTO) 1.4 (0.2-0.8); MONOCYTES % 8.2 % (4.4-11.3); NEUTROPHILS # (AUTO) 13.5 (2.1-6.9); NEUTROPHILS % 77.3 % (38.7-80.0); PLATELET COUNT 493 x10e3/uL (140-360); RED BLOOD COUNT 3.86 x10e6/uL (3.6-5.1); RED CELL DISTRIBUTION WIDTH 17.2 % (11.7-14.4)
[2020-09-25] MEDS: LORAZEPAM INJ 2 MG/ML VIAL IV PRN (05:37)
[2020-09-25 06:02] LABS: CALCIUM 8.7 mg/dL (8.4-10.2); CREATININE, SERUM 3.61 mg/dL (0.57-1.11)
[2020-09-25] MEDS: LEVALBUTEROL HCL SOLN NEBU 0.63 MG/3 ML NEB INH SCH ×5 (07:50→23:50)
[2020-09-25] MEDS ORDERED: Pantoprazole IV 40 MG/50 ML BAG IV SCH (09:00)
[2020-09-25] MEDS ORDERED: HEPARIN SOD (PORCINE) 1000 UNIT/ML SDV IV PRN (11:30)
[2020-09-25] MEDS ORDERED: SODIUM CHLORIDE 0.9% 1000ML 2,000 ML IV PRN (11:30)
[2020-09-25] MEDS: HYDROXYZINE HCL 25 MG TAB PO PRN (13:42)
[2020-09-25] MEDS: ONDANSETRON HCL INJ 2MG/ML 2ML 2 MG/ML VIAL IV PRN ×2 (15:44→22:31)
[2020-09-26] VITALS (8 sets, daily range): BP systolic 114–143; BP diastolic 55–86
[2020-09-26] MEDS: LORAZEPAM INJ 2 MG/ML VIAL IV PRN ×2 (01:15→21:39)
[2020-09-26] MEDS: LEVALBUTEROL HCL SOLN NEBU 0.63 MG/3 ML NEB INH SCH ×7 (02:09→23:05)
[2020-09-26] MEDS: MEROPENEM 500 MG in SODIUM CHLORIDE 0.9% 50ML 50 ML IV SCH ×2 (06:56→18:57)
[2020-09-26] MEDS: HYDROMORPHONE 1MG/1ML INJ IV PRN ×3 (08:44→17:50)
[2020-09-26] MEDS: ONDANSETRON HCL INJ 2MG/ML 2ML 2 MG/ML VIAL IV PRN ×2 (08:45→15:35)
[2020-09-26] MEDS ORDERED: SODIUM CHLORIDE 0.9% 1000ML 2,000 ML ONE (14:07)
[2020-09-27] VITALS (8 sets, daily range): BP systolic 122–150; BP diastolic 58–77
[2020-09-27] MEDS: HYDROMORPHONE 1MG/1ML INJ IV PRN ×4 (00:15→22:26)
[2020-09-27] MEDS: HYDROXYZINE HCL 25 MG TAB PO PRN (02:31)
[2020-09-27] MEDS: LEVALBUTEROL HCL SOLN NEBU 0.63 MG/3 ML NEB INH SCH ×6 (03:00→23:15)
[2020-09-27] MEDS: MEROPENEM 500 MG in SODIUM CHLORIDE 0.9% 50ML 50 ML IV SCH ×2 (05:59→16:45)
[2020-09-27 06:39] LABS: BASOPHILS # (AUTO) 0.1 (0.0-0.1); BASOPHILS % 0.7 % (0.0-1.0); EOSINOPHILS # (AUTO) 0.4 (0.0-0.4); EOSINOPHILS % 4.1 % (0.0-6.0); HEMATOCRIT 33.3 % (34.2-44.1); HEMOGLOBIN 11.1 g/dL (12.0-16.0); LYMPHOCYTES # (AUTO) 2.5 (1.0-3.2); LYMPHOCYTES % 23.6 % (18.0-39.1); MEAN CORPUSCULAR HEMOGLOBIN 29.5 pg (28-32); MEAN CORPUSCULAR HGB CONC 33.3 g/dL (31-35); MEAN CORPUSCULAR VOLUME 88.6 fL (81-99); MONOCYTES # (AUTO) 1.5 (0.2-0.8); MONOCYTES % 14.4 % (4.4-11.3); NEUTROPHILS % 56.8 % (38.7-80.0); PLATELET COUNT 464 x10e3/uL (140-360); RED BLOOD COUNT 3.76 x10e6/uL (3.6-5.1); RED CELL DISTRIBUTION WIDTH 17.1 % (11.7-14.4)
[2020-09-27 07:07] LABS: ALBUMIN 2.5 g/dL (3.5-5.0); ALBUMIN/GLOBULIN RATIO 0.6 (0.8-2.0); ANION GAP 18.1 mmol/L (8-16); CALCIUM 8.7 mg/dL (8.4-10.2); CREATININE, SERUM 3.56 mg/dL (0.57-1.11); POTASSIUM 3.1 mmol/L (3.5-5.1)
[2020-09-27] MEDS ORDERED: POTASSIUM CHLORIDE 20 MEQ TAB CR PO ONE (08:30)
[2020-09-27] MEDS: ONDANSETRON HCL INJ 2MG/ML 2ML 2 MG/ML VIAL IV PRN (09:53)
[2020-09-27] MEDS: LORAZEPAM INJ 2 MG/ML VIAL IV PRN ×2 (10:55→17:34)
[2020-09-28] VITALS (7 sets, daily range): BP systolic 125–166; BP diastolic 69–82
[2020-09-28] MEDS: ONDANSETRON HCL INJ 2MG/ML 2ML 2 MG/ML VIAL IV PRN (02:22)
[2020-09-28] MEDS: LEVALBUTEROL HCL SOLN NEBU 0.63 MG/3 ML NEB INH SCH ×6 (03:00→23:20)
[2020-09-28] MEDS: MEROPENEM 500 MG in SODIUM CHLORIDE 0.9% 50ML 50 ML IV SCH ×2 (06:11→16:49)
[2020-09-28] MEDS: LORAZEPAM INJ 2 MG/ML VIAL IV PRN ×2 (06:12→19:50)
[2020-09-28] MEDS ORDERED: HEPARIN SOD (PORCINE) 1000 UNIT/ML SDV IV PRN (09:00)
[2020-09-28] MEDS ORDERED: SODIUM CHLORIDE 0.9% 250ML 500 ML IV PRN (09:30)
[2020-09-28] MEDS ORDERED: ALBUMIN 25% 12.5GM 0.25 GM/ML BTL IV PRN (09:30)
[2020-09-28] MEDS: SEVELAMER CARBONATE 800 MG TAB PO SCH ×2 (12:23→16:49)
[2020-09-28] MEDS: HYDROMORPHONE 1MG/1ML INJ IV PRN (13:00)
[2020-09-29] VITALS (11 sets, daily range): BP systolic 112–185; BP diastolic 82–116
[2020-09-29] MEDS: LEVALBUTEROL HCL SOLN NEBU 0.63 MG/3 ML NEB INH SCH ×6 (03:00→23:19)
[2020-09-29] MEDS: HYDROMORPHONE 1MG/1ML INJ IV PRN ×2 (08:51→21:30)
[2020-09-29] MEDS: SEVELAMER CARBONATE 800 MG TAB PO SCH ×3 (08:51→18:33)
[2020-09-30] VITALS (9 sets, daily range): BP systolic 120–156; BP diastolic 60–84
[2020-09-30] MEDS: HYDROMORPHONE 1MG/1ML INJ IV PRN ×6 (00:45→22:02)
[2020-09-30] MEDS: LEVALBUTEROL HCL SOLN NEBU 0.63 MG/3 ML NEB INH SCH ×7 (03:10→23:30)
[2020-09-30] MEDS: HYDROXYZINE HCL 25 MG TAB PO PRN ×2 (06:00→21:05)
[2020-09-30] MEDS: SEVELAMER CARBONATE 800 MG TAB PO SCH ×3 (09:29→16:51)
[2020-09-30] MEDS: LORAZEPAM INJ 2 MG/ML VIAL IV PRN (09:47)
[2020-09-30] MEDS: ONDANSETRON HCL INJ 2MG/ML 2ML 2 MG/ML VIAL IV PRN (22:02)
[2020-10-01] MEDS: LEVALBUTEROL HCL SOLN NEBU 0.63 MG/3 ML NEB INH SCH ×5 (03:15→19:20)
[2020-10-01] MEDS: HYDROMORPHONE 1MG/1ML INJ IV PRN ×4 (03:20→22:00)
[2020-10-01 03:21] VITALS: BP 149/68
[2020-10-01 05:49] LABS: BASOPHILS # (AUTO) 0.1 (0.0-0.1); BASOPHILS % 0.6 % (0.0-1.0); EOSINOPHILS % 5.9 % (0.0-6.0); HEMATOCRIT 32.4 % (34.2-44.1); HEMOGLOBIN 10.7 g/dL (12.0-16.0); LYMPHOCYTES # (AUTO) 3.5 (1.0-3.2); MEAN CORPUSCULAR HEMOGLOBIN 29.4 pg (28-32); MONOCYTES # (AUTO) 1.4 (0.2-0.8); NEUTROPHILS # (AUTO) 9.8 (2.1-6.9); NEUTROPHILS % 61.6 % (38.7-80.0); PLATELET COUNT 467 x10e3/uL (140-360); RED BLOOD COUNT 3.64 x10e6/uL (3.6-5.1); RED CELL DISTRIBUTION WIDTH 16.6 % (11.7-14.4)
[2020-10-01 06:29] LABS: ALBUMIN 2.6 g/dL (3.5-5.0); ALBUMIN/GLOBULIN RATIO 0.7 (0.8-2.0); ANION GAP 14.8 mmol/L (8-16); CALCIUM 8.8 mg/dL (8.4-10.2); CREATININE, SERUM 6.47 mg/dL (0.57-1.11); MAGNESIUM 1.9 MG/DL (1.3-2.1); POTASSIUM 3.8 mmol/L (3.5-5.1)
[2020-10-01 07:33] VITALS: BP 131/82
[2020-10-01 08:04] VITALS: BP 131/82
[2020-10-01] MEDS: ALPRAZOLAM 0.5 MG TAB PO PRN ×2 (08:53→21:24)
[2020-10-01] MEDS: SEVELAMER CARBONATE 800 MG TAB PO SCH ×3 (08:53→17:32)
[2020-10-01] MEDS: FLUCONAZOLE 100 MG TAB PO SCH (08:53)
[2020-10-01] MEDS ORDERED: TERBINAFINE 250 MG TAB PO SCH (09:00)
[2020-10-01] MEDS: HYDROXYZINE HCL 25 MG TAB PO PRN (10:45)
[2020-10-01 12:00] VITALS: BP 148/67
[2020-10-01 15:21] VITALS: BP 111/76
[2020-10-01] MEDS: ONDANSETRON HCL INJ 2MG/ML 2ML 2 MG/ML VIAL IV PRN (17:24)
[2020-10-01] MEDS ORDERED: METOPROLOL TARTRATE INJ 1 MG/ML VIAL IV ONE (18:45)
[2020-10-01 20:00] VITALS: BP 95/57
[2020-10-01] MEDS: NYSTATIN 15 GM POWDER UD BTL TOP SCH (21:24)
[2020-10-02] VITALS (9 sets, daily range): BP systolic 106–159; BP diastolic 53–76
[2020-10-02] MEDS: LEVALBUTEROL HCL SOLN NEBU 0.63 MG/3 ML NEB INH SCH ×6 (03:00→23:00)
[2020-10-02] MEDS: ONDANSETRON HCL INJ 2MG/ML 2ML 2 MG/ML VIAL IV PRN (08:25)
[2020-10-02] MEDS: FLUCONAZOLE 100 MG TAB PO SCH (08:25)
[2020-10-02] MEDS: SEVELAMER CARBONATE 800 MG TAB PO SCH ×3 (08:25→17:00)
[2020-10-02] MEDS: NYSTATIN 15 GM POWDER UD BTL TOP SCH (09:00)
[2020-10-02] MEDS: HYDROMORPHONE 1MG/1ML INJ IV PRN ×5 (09:30→23:30)
[2020-10-02] MEDS: ALPRAZOLAM 0.5 MG TAB PO PRN (11:34)
[2020-10-02] MEDS: METOPROLOL SUCCINATE 25 MG TAB XL PO SCH (17:45)
[2020-10-03] VITALS (7 sets, daily range): BP systolic 121–149; BP diastolic 64–79
[2020-10-03] MEDS: LEVALBUTEROL HCL SOLN NEBU 0.63 MG/3 ML NEB INH SCH ×6 (03:00→23:00)
[2020-10-03] MEDS: HYDROMORPHONE 1MG/1ML INJ IV PRN ×5 (06:25→20:37)
[2020-10-03 06:26] LABS: BASOPHILS # (AUTO) 0.1 (0.0-0.1); BASOPHILS % 0.7 % (0.0-1.0); EOSINOPHILS # (AUTO) 0.6 (0.0-0.4); EOSINOPHILS % 4.4 % (0.0-6.0); HEMATOCRIT 33.2 % (34.2-44.1); HEMOGLOBIN 10.8 g/dL (12.0-16.0); LYMPHOCYTES # (AUTO) 3.5 (1.0-3.2); LYMPHOCYTES % 26.5 % (18.0-39.1); MEAN CORPUSCULAR HEMOGLOBIN 29.3 pg (28-32); MEAN CORPUSCULAR HGB CONC 32.5 g/dL (31-35); MEAN CORPUSCULAR VOLUME 90.2 fL (81-99); MONOCYTES # (AUTO) 1.3 (0.2-0.8); MONOCYTES % 10.1 % (4.4-11.3); NEUTROPHILS # (AUTO) 7.6 (2.1-6.9); NEUTROPHILS % 57.2 % (38.7-80.0); PLATELET COUNT 471 x10e3/uL (140-360); RED BLOOD COUNT 3.68 x10e6/uL (3.6-5.1); RED CELL DISTRIBUTION WIDTH 16.5 % (11.7-14.4)
[2020-10-03 07:08] LABS: ALBUMIN 2.7 g/dL (3.5-5.0); ALBUMIN/GLOBULIN RATIO 0.7 (0.8-2.0); ANION GAP 14.3 mmol/L (8-16); CALCIUM 8.8 mg/dL (8.4-10.2); CREATININE, SERUM 5.64 mg/dL (0.57-1.11); POTASSIUM 4.3 mmol/L (3.5-5.1)
[2020-10-03] MEDS: NYSTATIN 15 GM POWDER UD BTL TOP SCH (07:52)
[2020-10-03] MEDS: FLUCONAZOLE 100 MG TAB PO SCH (07:52)
[2020-10-03] MEDS: METOPROLOL SUCCINATE 25 MG TAB XL PO SCH (07:52)
[2020-10-03] MEDS: SEVELAMER CARBONATE 800 MG TAB PO SCH ×4 (07:52→16:45)
[2020-10-03] MEDS: HYDROXYZINE HCL 25 MG TAB PO PRN (08:24)
[2020-10-03] MEDS: ALPRAZOLAM 0.5 MG TAB PO PRN ×2 (08:41→17:31)
[2020-10-03] MEDS: MIDODRINE HCL 5 MG TABLET PO PRN (15:13)
[2020-10-03] MEDS: ONDANSETRON HCL INJ 2MG/ML 2ML 2 MG/ML VIAL IV PRN (20:37)
[2020-10-04] VITALS (8 sets, daily range): BP systolic 113–145; BP diastolic 53–90
[2020-10-04] MEDS: LEVALBUTEROL HCL SOLN NEBU 0.63 MG/3 ML NEB INH SCH ×6 (03:00→23:10)
[2020-10-04] MEDS: HYDROMORPHONE 1MG/1ML INJ IV PRN ×5 (07:54→23:10)
[2020-10-04] MEDS: ONDANSETRON HCL INJ 2MG/ML 2ML 2 MG/ML VIAL IV PRN ×2 (07:54→17:22)
[2020-10-04] MEDS: SEVELAMER CARBONATE 800 MG TAB PO SCH ×3 (08:00→16:26)
[2020-10-04] MEDS: FLUCONAZOLE 100 MG TAB PO SCH (08:55)
[2020-10-04] MEDS: METOPROLOL SUCCINATE 25 MG TAB XL PO SCH (08:56)
[2020-10-04] MEDS: NYSTATIN 15 GM POWDER UD BTL TOP SCH (09:04)
[2020-10-04] MEDS: ALPRAZOLAM 0.5 MG TAB PO PRN (11:08)
[2020-10-04] MEDS: DULOXETINE HCL 30 MG DELAYED RELEASE PO SCH (12:17)
[2020-10-04] MEDS: HYDROXYZINE HCL 25 MG TAB PO PRN ×2 (13:24→22:13)
[2020-10-04] MEDS: PROMETHAZINE 12.5MG/ NACL 0.9% 12.5 MG/50 ML BAG IV PRN (19:59)
[2020-10-05] VITALS (8 sets, daily range): BP systolic 108–149; BP diastolic 56–72
[2020-10-05] MEDS: LEVALBUTEROL HCL SOLN NEBU 0.63 MG/3 ML NEB INH SCH ×6 (02:30→23:50)
[2020-10-05] MEDS: HYDROMORPHONE 1MG/1ML INJ IV PRN ×5 (05:00→23:38)
[2020-10-05] MEDS: ONDANSETRON HCL INJ 2MG/ML 2ML 2 MG/ML VIAL IV PRN ×4 (05:00→23:38)
[2020-10-05] MEDS: SEVELAMER CARBONATE 800 MG TAB PO SCH ×4 (08:00→12:00)
[2020-10-05] MEDS: METOPROLOL SUCCINATE 25 MG TAB XL PO SCH (09:00)
[2020-10-05] MEDS: FLUCONAZOLE 100 MG TAB PO SCH (09:00)
[2020-10-05] MEDS: DULOXETINE HCL 30 MG DELAYED RELEASE PO SCH (09:00)
[2020-10-05] MEDS: NYSTATIN 15 GM POWDER UD BTL TOP SCH (09:00)
[2020-10-05] MEDS: HYDROXYZINE HCL 25 MG TAB PO PRN (10:52)
[2020-10-05] MEDS: ALPRAZOLAM 0.5 MG TAB PO PRN (10:52)
[2020-10-05] MEDS: MIDODRINE HCL 5 MG TABLET PO PRN (15:09)
[2020-10-05] MEDS ORDERED: HEPARIN SOD (PORCINE) 1000 UNIT/ML SDV ONE (17:35)
[2020-10-05] MEDS: PROMETHAZINE 12.5MG/ NACL 0.9% 12.5 MG/50 ML BAG IV PRN (20:20)
[2020-10-06] VITALS (8 sets, daily range): BP systolic 108–144; BP diastolic 42–74
[2020-10-06] MEDS: LEVALBUTEROL HCL SOLN NEBU 0.63 MG/3 ML NEB INH SCH ×6 (02:23→22:30)
[2020-10-06] MEDS: HYDROMORPHONE 1MG/1ML INJ IV PRN ×6 (02:40→22:01)
[2020-10-06] MEDS: ONDANSETRON HCL INJ 2MG/ML 2ML 2 MG/ML VIAL IV PRN ×3 (07:25→18:39)
[2020-10-06] MEDS: SEVELAMER CARBONATE 800 MG TAB PO SCH ×3 (08:00→16:54)
[2020-10-06] MEDS: DULOXETINE HCL 30 MG DELAYED RELEASE PO SCH (09:25)
[2020-10-06] MEDS: FLUCONAZOLE 100 MG TAB PO SCH (09:25)
[2020-10-06] MEDS: ALPRAZOLAM 0.5 MG TAB PO PRN ×2 (09:26→16:54)
[2020-10-06] MEDS: METOPROLOL SUCCINATE 25 MG TAB XL PO SCH (09:26)
[2020-10-06] MEDS: HYDROXYZINE HCL 25 MG TAB PO PRN ×2 (14:05→20:26)
[2020-10-06] MEDS: NYSTATIN 15 GM POWDER UD BTL TOP SCH (14:42)
[2020-10-06] MEDS: PROMETHAZINE 12.5MG/ NACL 0.9% 12.5 MG/50 ML BAG IV PRN ×2 (15:03→22:02)
[2020-10-06] MEDS: APIXABAN 5 MG TABLET PO SCH (16:54)
[2020-10-06] MEDS: EZETIMIBE 10 MG TAB PO SCH (20:25)
[2020-10-07] VITALS (7 sets, daily range): BP systolic 99–146; BP diastolic 62–78
[2020-10-07] MEDS: LEVALBUTEROL HCL SOLN NEBU 0.63 MG/3 ML NEB INH SCH ×6 (03:00→23:35)
[2020-10-07] MEDS: HYDROMORPHONE 1MG/1ML INJ IV PRN ×5 (04:00→22:40)
[2020-10-07] MEDS: ONDANSETRON HCL INJ 2MG/ML 2ML 2 MG/ML VIAL IV PRN ×4 (04:00→22:39)
[2020-10-07] MEDS: SEVELAMER CARBONATE 800 MG TAB PO SCH ×3 (07:27→17:11)
[2020-10-07] MEDS: DULOXETINE HCL 30 MG DELAYED RELEASE PO SCH (08:56)
[2020-10-07] MEDS: ALPRAZOLAM 0.5 MG TAB PO PRN (08:56)
[2020-10-07] MEDS: CLOPIDOGREL BISULFATE 75 MG TAB PO SCH (08:57)
[2020-10-07] MEDS: APIXABAN 5 MG TABLET PO SCH ×2 (08:57→17:11)
[2020-10-07] MEDS: FLUCONAZOLE 100 MG TAB PO SCH (08:57)
[2020-10-07] MEDS: METOPROLOL SUCCINATE 25 MG TAB XL PO SCH (08:58)
[2020-10-07] MEDS: HYDROXYZINE HCL 25 MG TAB PO PRN (11:46)
[2020-10-07] MEDS: NYSTATIN 15 GM POWDER UD BTL TOP SCH (15:12)
[2020-10-07] MEDS: PROMETHAZINE 12.5MG/ NACL 0.9% 12.5 MG/50 ML BAG IV PRN (17:11)
[2020-10-07] MEDS: EZETIMIBE 10 MG TAB PO SCH (21:00)
[2020-10-08] VITALS (8 sets, daily range): BP systolic 135–154; BP diastolic 56–80
[2020-10-08] MEDS: ALPRAZOLAM 0.5 MG TAB PO PRN ×3 (00:02→21:38)
[2020-10-08] MEDS: LEVALBUTEROL HCL SOLN NEBU 0.63 MG/3 ML NEB INH SCH ×6 (02:43→23:50)
[2020-10-08] MEDS: ONDANSETRON HCL INJ 2MG/ML 2ML 2 MG/ML VIAL IV PRN ×4 (04:37→23:30)
[2020-10-08] MEDS: HYDROMORPHONE 1MG/1ML INJ IV PRN ×5 (04:45→22:30)
[2020-10-08] MEDS ORDERED: LOPERAMIDE HCL 2 MG CAP PO PRN (04:45)
[2020-10-08] MEDS: SEVELAMER CARBONATE 800 MG TAB PO SCH ×3 (08:00→19:45)
[2020-10-08] MEDS: PROMETHAZINE 12.5MG/ NACL 0.9% 12.5 MG/50 ML BAG IV PRN (08:55)
[2020-10-08] MEDS: NYSTATIN 100,000 UNITS/GM CRM 30GM TUBE TOP SCH ×2 (09:00→17:00)
[2020-10-08] MEDS: APIXABAN 5 MG TABLET PO SCH ×2 (09:00→19:45)
[2020-10-08] MEDS: METOPROLOL SUCCINATE 25 MG TAB XL PO SCH (09:00)
[2020-10-08] MEDS: NYSTATIN 15 GM POWDER UD BTL TOP SCH (09:00)
[2020-10-08] MEDS: CLOPIDOGREL BISULFATE 75 MG TAB PO SCH (09:00)
[2020-10-08] MEDS: DULOXETINE HCL 30 MG DELAYED RELEASE PO SCH (09:00)
[2020-10-08] MEDS ORDERED: SODIUM CHLORIDE 0.9% 250ML 250 ML ONE (09:00)
[2020-10-08 11:23] LABS: ALBUMIN 2.9 g/dL (3.5-5.0); ALBUMIN/GLOBULIN RATIO 0.8 (0.8-2.0); ANION GAP 15.3 mmol/L (8-16); CREATININE, SERUM 5.52 mg/dL (0.57-1.11)
[2020-10-08 11:56] LABS: POTASSIUM 6.3 mmol/L (3.5-5.1)
[2020-10-08] MEDS: HYDROXYZINE HCL 25 MG TAB PO PRN (12:19)
[2020-10-08] MEDS ORDERED: HEPARIN SOD (PORCINE) 1000 UNIT/ML SDV IV PRN (17:00)
[2020-10-08] MEDS: EZETIMIBE 10 MG TAB PO SCH (19:45)
[2020-10-09] VITALS: BP 117/62
[2020-10-09] MEDS: HYDROMORPHONE 1MG/1ML INJ IV PRN ×2 (02:11→05:11)
[2020-10-09] MEDS: ONDANSETRON HCL INJ 2MG/ML 2ML 2 MG/ML VIAL IV PRN ×2 (02:55→06:20)
[2020-10-09] MEDS: LEVALBUTEROL HCL SOLN NEBU 0.63 MG/3 ML NEB INH SCH ×2 (03:35→07:00)
[2020-10-09 04:00] VITALS: BP 130/68
[2020-10-09 05:58] LABS: ALBUMIN 2.6 g/dL (3.5-5.0); ALBUMIN/GLOBULIN RATIO 0.7 (0.8-2.0); ANION GAP 13.6 mmol/L (8-16); CALCIUM 8.2 mg/dL (8.4-10.2); CREATININE, SERUM 3.11 mg/dL (0.57-1.11); POTASSIUM 4.6 mmol/L (3.5-5.1)
[2020-10-09 07:45] VITALS: BP 119/56
[2020-10-09] MEDS: SEVELAMER CARBONATE 800 MG TAB PO SCH (08:00)
[2020-10-09] MEDS: DULOXETINE HCL 30 MG DELAYED RELEASE PO SCH (08:00)
[2020-10-09] MEDS: APIXABAN 5 MG TABLET PO SCH (08:00)
[2020-10-09] MEDS: CLOPIDOGREL BISULFATE 75 MG TAB PO SCH (08:00)
[2020-10-09] MEDS: NYSTATIN 100,000 UNITS/GM CRM 30GM TUBE TOP SCH (08:01)
[2020-10-09] MEDS: METOPROLOL SUCCINATE 25 MG TAB XL PO SCH (08:01)
[2020-10-09] MEDS ORDERED: HEPARIN 500 UNITS/5ML MDV INJ ONE (08:15)
[2020-10-09 08:52] VITALS: BP 119/56
== END 2020-10-09 08:37 | disposition home or self-care (01) | DRG 388 ==
LOC: ER 13:45 → ERHOLD 17:05 → MED/SURG2 18:36
PROVIDERS: ADMIT Internal Medicine; ATTEND Internal Medicine
PROC: 5A1D70Z Performance of Urinary Filtration, Intermittent, Less than 6 Hours Per Day (ICD-10-PCS; principal; 2020-09-24)
DX: K56.609 Unspecified intestinal obstruction, unspecified as to partial versus complete obstruction (principal); N18.6 End stage renal disease; G92 Toxic encephalopathy; J96.11 Chronic respiratory failure with hypoxia; I13.2 Hypertensive heart and chronic kidney disease with heart failure and with stage 5 chronic kidney disease, or end stage renal disease; I50.32 Chronic diastolic (congestive) heart failure; I47.1 Supraventricular tachycardia; E87.1 Hypo-osmolality and hyponatremia; E11.22 Type 2 diabetes mellitus with diabetic chronic kidney disease; Z99.2 Dependence on renal dialysis; Z79.899 Other long term (current) drug therapy; G47.33 Obstructive sleep apnea (adult) (pediatric); J44.9 Chronic obstructive pulmonary disease, unspecified; M19.91 Primary osteoarthritis, unspecified site; I48.0 Paroxysmal atrial fibrillation; Z79.01 Long term (current) use of anticoagulants; I25.10 Atherosclerotic heart disease of native coronary artery without angina pectoris; Z95.5 Presence of coronary angioplasty implant and graft; E78.5 Hyperlipidemia, unspecified; E66.01 Morbid (severe) obesity due to excess calories; Z68.37 Body mass index [BMI] 37.0-37.9, adult; E83.39 Other disorders of phosphorus metabolism; Z20.822 Contact with and (suspected) exposure to COVID-19
CPT/HCPCS: 36415; 71045; 74018; 74177; 80048; 80053; 82948; 83690; 83735; 84100; 84443; 84484; 85025; 86705; 86706; 87340; 90962; 93005; 94640; 97139; 99285; J1170; J1200; J1644; J2060; J2185; J2405; J2550; J3410; J7030; J7050; Q9967; U0002

== ENCOUNTER 2020-10-31 07:29 | Inpatient (IN) | payer BC, MEDICARE ==
[~2020-10-31] VITALS: Ht 154.9 cm; Wt 94.5 kg
[2020-10-31 08:53] LABS: BASOPHILS # (AUTO) 0.1 (0.0-0.1); BASOPHILS % 0.6 % (0.0-1.0); EOSINOPHILS # (AUTO) 0.5 (0.0-0.4); EOSINOPHILS % 2.6 % (0.0-6.0); HEMATOCRIT 31.8 % (34.2-44.1); LYMPHOCYTES # (AUTO) 2.1 (1.0-3.2); LYMPHOCYTES % 10.9 % (18.0-39.1); MEAN CORPUSCULAR HEMOGLOBIN 29.3 pg (28-32); MEAN CORPUSCULAR HGB CONC 31.4 g/dL (31-35); MEAN CORPUSCULAR VOLUME 93.3 fL (81-99); MONOCYTES # (AUTO) 1.1 (0.2-0.8); NEUTROPHILS # (AUTO) 15.1 (2.1-6.9); NEUTROPHILS % 79.1 % (38.7-80.0); PLATELET COUNT 747 x10e3/uL (140-360); RED BLOOD COUNT 3.41 x10e6/uL (3.6-5.1); RED CELL DISTRIBUTION WIDTH 16.5 % (11.7-14.4)
[2020-10-31] MEDS ORDERED: ONDANSETRON HCL INJ 2MG/ML 2ML 2 MG/ML VIAL IV STA (08:53)
[2020-10-31 09:15] LABS: ALBUMIN 2.6 g/dL (3.5-5.0); ALBUMIN/GLOBULIN RATIO 0.6 (0.8-2.0); ANION GAP 18.5 mmol/L (8-16); CALCIUM 9.2 mg/dL (8.4-10.2); CREATININE, SERUM 4.66 mg/dL (0.57-1.11); POTASSIUM 4.5 mmol/L (3.5-5.1)
[2020-10-31 09:36] LABS: CREATINE KINASE MB 1.5 ng/mL (0-5.0)
[2020-10-31] MEDS ORDERED: CEFEPIME 1 GM in SODIUM CHLORIDE 0.9% 50ML 50 ML IV ONE (10:45)
[2020-10-31] MEDS ORDERED: FUROSEMIDE INJ 10 MG/ML 4 ML VIAL IV ONE (10:45)
[2020-10-31] MEDS ORDERED: Vancomycin IV 1 GM VIAL ONE (11:42)
[2020-10-31] MEDS ORDERED: CEFEPIME HCL 1 GM VIAL ONE (11:42)
[2020-10-31] MEDS ORDERED: SODIUM CHLORIDE 0.9% 250ML 250 ML ONE (11:43)
[2020-10-31] MEDS ORDERED: SODIUM CHLORIDE 0.9% 100 ML ONE (11:43)
[2020-10-31] MEDS ORDERED: Vancomycin IV 1 GM in SODIUM CHLORIDE 0.9% 250ML 250 ML IV ONE (12:00)
[2020-10-31] MEDS ORDERED: MORPHINE SULFATE INJ 4 MG/ML INJ 1ML ONE (12:31)
[2020-10-31] MEDS ORDERED: HYDROMORPHONE 1MG/1ML INJ ONE (12:46)
[2020-10-31] MEDS ORDERED: HYDROMORPHONE 1MG/1ML INJ IV STA (12:55)
[2020-10-31] MEDS ORDERED: MORPHINE SULFATE INJ 2 MG/ML SYR IV STA (12:55)
[2020-10-31 13:08] LABS: ABG HCO3 29 mmol/L (22-26); ABG PCO2 47 mmHg (35-45); ABG PO2 112 mmHg (80-105); ABG TCO2 31
[2020-10-31] MEDS ORDERED: ALBUTEROL/IPRATROPIUM 3 ML NEB NEB ONE (13:30)
[2020-10-31] MEDS ORDERED: METOPROLOL TARTRATE INJ 1 MG/ML VIAL ONE ×2 (16:56→20:22)
[2020-10-31] MEDS ORDERED: METOPROLOL TARTRATE INJ 1 MG/ML VIAL IV ONE ×2 (17:00→20:15)
[2020-10-31] MEDS ORDERED: SODIUM CHLORIDE 0.9% 1000ML 1,000 ML ONE (17:52)
[2020-10-31] MEDS ORDERED: ALBUMIN 25% 12.5GM 50ML 50 ML IV ONE (18:46)
[2020-10-31 18:49] LABS: CREATINE KINASE MB 1.7 ng/mL (0-5.0)
[2020-10-31] MEDS: HYDROMORPHONE 1MG/1ML INJ IV PRN ×2 (19:22→23:25)
[2020-10-31] MEDS: METOPROLOL SUCCINATE 25 MG TAB XL PO SCH (20:23)
[2020-10-31] MEDS ORDERED: HEPARIN SOD (PORCINE) 1000 UNIT/ML SDV ONE (21:42)
[2020-10-31 22:40] VITALS: BP 145/57
[2020-10-31] MEDS ORDERED: NARCAN4 MG INH (23:09)
[2020-10-31] MEDS ORDERED: HYDROMORPHONE HC4 MG PO (23:09)
[2020-10-31] MEDS ORDERED: NYSTATIN1 EAC2 TOP (23:12)
[2020-10-31] MEDS ORDERED: MIDODRINE HCL 5 MG TABLET PO PRN (23:30)
[2020-10-31] MEDS ORDERED: DICYCLOMINE HCL 10 MG CAP PO PRN (23:30)
[2020-10-31] MEDS ORDERED: MELATONIN10 M1 PO (23:39)
[2020-10-31] MEDS ORDERED: HALOPERIDOL2 MG PO (23:39)
[2020-10-31] MEDS ORDERED: RENVELA800 MG PO (23:39)
[2020-10-31] MEDS ORDERED: PROBIOTIC & AC1 EACH PO (23:39)
[2020-10-31] MEDS ORDERED: MELATONIN 5 MG TABLET PO PRN (23:45)
[2020-11-01] VITALS (8 sets, daily range): BP systolic 116–164; BP diastolic 49–80
[2020-11-01] MEDS: ALBUTEROL/IPRATROPIUM 3 ML NEB NEB SCH ×6 (03:15→23:10)
[2020-11-01] MEDS: HYDROMORPHONE 1MG/1ML INJ IV PRN ×6 (04:45→23:15)
[2020-11-01 04:59] LABS: BASOPHILS # (AUTO) 0.1 (0.0-0.1); BASOPHILS % 0.6 % (0.0-1.0); EOSINOPHILS # (AUTO) 0.1 (0.0-0.4); HEMATOCRIT 30.1 % (34.2-44.1); HEMOGLOBIN 9.4 g/dL (12.0-16.0); LYMPHOCYTES # (AUTO) 2.2 (1.0-3.2); LYMPHOCYTES % 15.5 % (18.0-39.1); MEAN CORPUSCULAR HEMOGLOBIN 29.6 pg (28-32); MEAN CORPUSCULAR HGB CONC 31.2 g/dL (31-35); MEAN CORPUSCULAR VOLUME 94.7 fL (81-99); MONOCYTES # (AUTO) 1.4 (0.2-0.8); MONOCYTES % 9.9 % (4.4-11.3); NEUTROPHILS % 72.4 % (38.7-80.0); PLATELET COUNT 661 x10e3/uL (140-360); RED BLOOD COUNT 3.18 x10e6/uL (3.6-5.1); RED CELL DISTRIBUTION WIDTH 16.6 % (11.7-14.4)
[2020-11-01 05:30] LABS: CREATINE KINASE MB 1.6 ng/mL (0-5.0)
[2020-11-01 05:55] LABS: ALBUMIN 2.5 g/dL (3.5-5.0); ALBUMIN/GLOBULIN RATIO 0.6 (0.8-2.0); ANION GAP 16.6 mmol/L (8-16); CALCIUM 8.8 mg/dL (8.4-10.2); CREATININE, SERUM 3.4 mg/dL (0.57-1.11); POTASSIUM 4.6 mmol/L (3.5-5.1)
[2020-11-01] MEDS: METOPROLOL SUCCINATE 25 MG TAB XL PO SCH ×2 (07:34→17:08)
[2020-11-01] MEDS: SEVELAMER CARBONATE 800 MG TAB PO SCH ×3 (08:24→17:07)
[2020-11-01] MEDS ORDERED: DIGOXIN INJ 0.25 MG/ML 2 ML AMP IV ONE (08:25)
[2020-11-01] MEDS ORDERED: METOPROLOL TARTRATE INJ 1 MG/ML VIAL IV ONE (08:25)
[2020-11-01] MEDS: PANTOPRAZOLE SOD 40 MG TABEC PO SCH ×3 (08:35→17:07)
[2020-11-01] MEDS: CALCIUM ACETATE 667 MG GELCAP PO SCH ×3 (08:35→17:07)
[2020-11-01] MEDS: APIXABAN 5 MG TABLET PO SCH ×2 (08:36→17:07)
[2020-11-01] MEDS: DULOXETINE HCL 30 MG DELAYED RELEASE PO SCH (08:36)
[2020-11-01] MEDS: CLOPIDOGREL BISULFATE 75 MG TAB PO SCH (08:36)
[2020-11-01] MEDS: LACTOBACILLUS ACIDOPHILUS CAPSULE PO SCH (08:36)
[2020-11-01] MEDS: ALPRAZOLAM 1 MG TAB PO PRN ×2 (08:43→23:15)
[2020-11-01] MEDS: HALOPERIDOL 1 MG TAB PO PRN ×2 (08:43→20:16)
[2020-11-01] MEDS: NYSTATIN 15 GM POWDER UD BTL TOP SCH ×2 (09:38→17:08)
[2020-11-01] MEDS: EZETIMIBE 10 MG TAB PO SCH (17:08)
[2020-11-01] MEDS: HYDROXYZINE HCL 25 MG TAB PO PRN (19:34)
[2020-11-02] VITALS (8 sets, daily range): BP systolic 118–148; BP diastolic 48–70
[2020-11-02] MEDS: ALBUTEROL/IPRATROPIUM 3 ML NEB NEB SCH ×6 (03:12→23:12)
[2020-11-02] MEDS: HYDROMORPHONE 1MG/1ML INJ IV PRN ×6 (04:00→22:58)
[2020-11-02] MEDS: METOPROLOL SUCCINATE 25 MG TAB XL PO SCH ×2 (06:25→20:40)
[2020-11-02] MEDS: HALOPERIDOL 1 MG TAB PO PRN ×2 (06:25→20:39)
[2020-11-02 06:27] LABS: BASOPHILS # (AUTO) 0.1 (0.0-0.1); BASOPHILS % 0.7 % (0.0-1.0); EOSINOPHILS # (AUTO) 0.3 (0.0-0.4); EOSINOPHILS % 2.1 % (0.0-6.0); HEMATOCRIT 29.9 % (34.2-44.1); HEMOGLOBIN 9.2 g/dL (12.0-16.0); LYMPHOCYTES # (AUTO) 2.3 (1.0-3.2); MEAN CORPUSCULAR HEMOGLOBIN 29.3 pg (28-32); MEAN CORPUSCULAR HGB CONC 30.8 g/dL (31-35); MEAN CORPUSCULAR VOLUME 95.2 fL (81-99); MONOCYTES # (AUTO) 1.1 (0.2-0.8); MONOCYTES % 9.4 % (4.4-11.3); NEUTROPHILS # (AUTO) 8.2 (2.1-6.9); NEUTROPHILS % 68.3 % (38.7-80.0); PLATELET COUNT 654 x10e3/uL (140-360); RED BLOOD COUNT 3.14 x10e6/uL (3.6-5.1); RED CELL DISTRIBUTION WIDTH 16.8 % (11.7-14.4)
[2020-11-02 06:46] LABS: ALBUMIN 2.3 g/dL (3.5-5.0); ALBUMIN/GLOBULIN RATIO 0.5 (0.8-2.0); ANION GAP 16.8 mmol/L (8-16); CALCIUM 8.6 mg/dL (8.4-10.2); CREATININE, SERUM 4.79 mg/dL (0.57-1.11); POTASSIUM 4.8 mmol/L (3.5-5.1)
[2020-11-02] MEDS: PANTOPRAZOLE SOD 40 MG TABEC PO SCH ×3 (08:41→16:30)
[2020-11-02] MEDS: CALCIUM ACETATE 667 MG GELCAP PO SCH ×3 (08:45→17:00)
[2020-11-02] MEDS: SEVELAMER CARBONATE 800 MG TAB PO SCH ×3 (08:46→17:00)
[2020-11-02] MEDS: APIXABAN 5 MG TABLET PO SCH (08:46)
[2020-11-02] MEDS: DULOXETINE HCL 30 MG DELAYED RELEASE PO SCH (08:46)
[2020-11-02] MEDS: CLOPIDOGREL BISULFATE 75 MG TAB PO SCH (08:47)
[2020-11-02] MEDS: LACTOBACILLUS ACIDOPHILUS CAPSULE PO SCH (08:48)
[2020-11-02] MEDS: ALPRAZOLAM 1 MG TAB PO PRN (08:48)
[2020-11-02] MEDS: NYSTATIN 15 GM POWDER UD BTL TOP SCH ×2 (08:48→20:40)
[2020-11-02] MEDS ORDERED: SODIUM CHLORIDE 0.9% 1000ML 2,000 ML IV PRN (15:45)
[2020-11-02] MEDS ORDERED: HEPARIN SOD (PORCINE) 1000 UNIT/ML SDV IV PRN (15:45)
[2020-11-02] MEDS: EZETIMIBE 10 MG TAB PO SCH (17:00)
[2020-11-02] MEDS: APIXAB 2.5 MG TABLET PO SCH (17:00)
[2020-11-02] MEDS: ONDANSETRON HCL INJ 2MG/ML 2ML 2 MG/ML VIAL IV PRN (22:58)
[2020-11-03] VITALS (8 sets, daily range): BP systolic 111–154; BP diastolic 50–69
[2020-11-03] MEDS: HYDROMORPHONE 1MG/1ML INJ IV PRN ×7 (01:58→21:29)
[2020-11-03] MEDS: ALBUTEROL/IPRATROPIUM 3 ML NEB NEB SCH ×6 (03:00→22:52)
[2020-11-03] MEDS: HYDROXYZINE HCL 25 MG TAB PO PRN (05:22)
[2020-11-03] MEDS: ONDANSETRON HCL INJ 2MG/ML 2ML 2 MG/ML VIAL IV PRN (05:23)
[2020-11-03] MEDS: CALCIUM ACETATE 667 MG GELCAP PO SCH ×3 (08:59→16:50)
[2020-11-03] MEDS: PANTOPRAZOLE SOD 40 MG TABEC PO SCH ×3 (08:59→16:50)
[2020-11-03] MEDS: LACTOBACILLUS ACIDOPHILUS CAPSULE PO SCH (09:00)
[2020-11-03] MEDS: SEVELAMER CARBONATE 800 MG TAB PO SCH ×3 (09:00→16:50)
[2020-11-03] MEDS: APIXAB 2.5 MG TABLET PO SCH ×2 (09:00→16:50)
[2020-11-03] MEDS: METOPROLOL SUCCINATE 25 MG TAB XL PO SCH ×2 (09:00→20:21)
[2020-11-03] MEDS: CLOPIDOGREL BISULFATE 75 MG TAB PO SCH (09:00)
[2020-11-03] MEDS: NYSTATIN 15 GM POWDER UD BTL TOP SCH ×2 (09:00→21:21)
[2020-11-03] MEDS: DULOXETINE HCL 30 MG DELAYED RELEASE PO SCH (09:00)
[2020-11-03] MEDS: ALPRAZOLAM 1 MG TAB PO PRN (09:53)
[2020-11-03] MEDS: HALOPERIDOL 1 MG TAB PO PRN ×2 (11:58→20:31)
[2020-11-03] MEDS: EZETIMIBE 10 MG TAB PO SCH (16:50)
[2020-11-04] VITALS (8 sets, daily range): BP systolic 112–158; BP diastolic 52–71
[2020-11-04] MEDS: HYDROMORPHONE 1MG/1ML INJ IV PRN ×7 (00:55→22:05)
[2020-11-04] MEDS: ALBUTEROL/IPRATROPIUM 3 ML NEB NEB SCH ×6 (02:44→23:20)
[2020-11-04] MEDS: CALCIUM ACETATE 667 MG GELCAP PO SCH ×3 (08:00→16:48)
[2020-11-04] MEDS: APIXAB 2.5 MG TABLET PO SCH ×2 (08:59→16:48)
[2020-11-04] MEDS: LACTOBACILLUS ACIDOPHILUS CAPSULE PO SCH (08:59)
[2020-11-04] MEDS: DULOXETINE HCL 30 MG DELAYED RELEASE PO SCH (08:59)
[2020-11-04] MEDS: SEVELAMER CARBONATE 800 MG TAB PO SCH ×3 (08:59→16:48)
[2020-11-04] MEDS: PANTOPRAZOLE SOD 40 MG TABEC PO SCH ×3 (08:59→16:48)
[2020-11-04] MEDS: CLOPIDOGREL BISULFATE 75 MG TAB PO SCH (08:59)
[2020-11-04] MEDS: METOPROLOL SUCCINATE 25 MG TAB XL PO SCH ×2 (08:59→21:00)
[2020-11-04] MEDS: NYSTATIN 15 GM POWDER UD BTL TOP SCH ×2 (09:00→22:00)
[2020-11-04] MEDS: GUAIFENESIN 600 MG TAB PO PRN (09:00)
[2020-11-04] MEDS: HALOPERIDOL 1 MG TAB PO PRN ×2 (11:12→22:05)
[2020-11-04] MEDS: EZETIMIBE 10 MG TAB PO SCH (16:48)
[2020-11-05] VITALS (7 sets, daily range): BP systolic 108–187; BP diastolic 44–84
[2020-11-05] MEDS: HYDROMORPHONE 1MG/1ML INJ IV PRN ×4 (02:53→14:25)
[2020-11-05] MEDS: ALBUTEROL/IPRATROPIUM 3 ML NEB NEB SCH ×4 (03:00→15:35)
[2020-11-05] MEDS: HYDROXYZINE HCL 25 MG TAB PO PRN (06:58)
[2020-11-05] MEDS: DULOXETINE HCL 30 MG DELAYED RELEASE PO SCH (08:28)
[2020-11-05] MEDS: METOPROLOL SUCCINATE 25 MG TAB XL PO SCH (08:28)
[2020-11-05] MEDS: APIXAB 2.5 MG TABLET PO SCH ×2 (08:28→16:22)
[2020-11-05] MEDS: CALCIUM ACETATE 667 MG GELCAP PO SCH ×2 (08:28→12:00)
[2020-11-05] MEDS: PANTOPRAZOLE SOD 40 MG TABEC PO SCH ×3 (08:28→16:22)
[2020-11-05] MEDS: CLOPIDOGREL BISULFATE 75 MG TAB PO SCH (08:28)
[2020-11-05] MEDS: LACTOBACILLUS ACIDOPHILUS CAPSULE PO SCH (08:28)
[2020-11-05] MEDS: SEVELAMER CARBONATE 800 MG TAB PO SCH ×2 (08:28→12:00)
[2020-11-05] MEDS ORDERED: ONDANSETRON HCL 4 MG ORAL DISINTEGRATING TAB PO PRN (08:45)
[2020-11-05] MEDS: HALOPERIDOL 1 MG TAB PO PRN (08:51)
[2020-11-05] MEDS: GUAIFENESIN 600 MG TAB PO PRN (08:51)
[2020-11-05 09:53] LABS: BASOPHILS # (AUTO) 0.1 (0.0-0.1); BASOPHILS % 0.4 % (0.0-1.0); EOSINOPHILS # (AUTO) 0.2 (0.0-0.4); EOSINOPHILS % 1.5 % (0.0-6.0); HEMOGLOBIN 9.5 g/dL (12.0-16.0); LYMPHOCYTES # (AUTO) 1.6 (1.0-3.2); LYMPHOCYTES % 14.7 % (18.0-39.1); MEAN CORPUSCULAR HEMOGLOBIN 29.5 pg (28-32); MEAN CORPUSCULAR HGB CONC 31.7 g/dL (31-35); MEAN CORPUSCULAR VOLUME 93.2 fL (81-99); MONOCYTES # (AUTO) 0.4 (0.2-0.8); MONOCYTES % 3.6 % (4.4-11.3); NEUTROPHILS # (AUTO) 8.8 (2.1-6.9); NEUTROPHILS % 78.5 % (38.7-80.0); PLATELET COUNT 505 x10e3/uL (140-360); RED BLOOD COUNT 3.22 x10e6/uL (3.6-5.1); RED CELL DISTRIBUTION WIDTH 16.7 % (11.7-14.4)
[2020-11-05 10:15] LABS: ALBUMIN 2.3 g/dL (3.5-5.0); ALBUMIN/GLOBULIN RATIO 0.6 (0.8-2.0); ANION GAP 15.1 mmol/L (8-16); CALCIUM 8.4 mg/dL (8.4-10.2); CREATININE, SERUM 5.23 mg/dL (0.57-1.11); POTASSIUM 4.1 mmol/L (3.5-5.1)
[2020-11-05] MEDS: NYSTATIN 15 GM POWDER UD BTL TOP SCH (11:28)
[2020-11-05] MEDS ORDERED: HEPARIN 500 UNITS/5ML MDV INJ ONE (15:45)
[2020-11-05] MEDS: ALPRAZOLAM 1 MG TAB PO PRN (16:10)
[2020-11-05] MEDS: EZETIMIBE 10 MG TAB PO SCH (16:22)
== END 2020-11-05 16:38 | disposition home or self-care (01) | DRG 291 ==
LOC: ER 08:06 → ERHOLD 10:45 → MED/SURG2 22:20
PROVIDERS: ADMIT Internal Medicine; ATTEND Internal Medicine
DX: I13.2 Hypertensive heart and chronic kidney disease with heart failure and with stage 5 chronic kidney disease, or end stage renal disease (principal); I50.33 Acute on chronic diastolic (congestive) heart failure; J96.21 Acute and chronic respiratory failure with hypoxia; N18.6 End stage renal disease; I47.1 Supraventricular tachycardia; J44.9 Chronic obstructive pulmonary disease, unspecified; I48.91 Unspecified atrial fibrillation; E66.01 Morbid (severe) obesity due to excess calories; D64.9 Anemia, unspecified; F41.9 Anxiety disorder, unspecified; G47.33 Obstructive sleep apnea (adult) (pediatric); I25.10 Atherosclerotic heart disease of native coronary artery without angina pectoris; I25.2 Old myocardial infarction; Z87.442 Personal history of urinary calculi; Z99.2 Dependence on renal dialysis; Z90.49 Acquired absence of other specified parts of digestive tract; Z90.5 Acquired absence of kidney; Z88.1 Allergy status to other antibiotic agents; Z88.5 Allergy status to narcotic agent; Z88.0 Allergy status to penicillin; Z88.2 Allergy status to sulfonamides; Z88.8 Allergy status to other drugs, medicaments and biological substances; Z91.048 Other nonmedicinal substance allergy status; Z82.49 Family history of ischemic heart disease and other diseases of the circulatory system; Z86.73 Personal history of transient ischemic attack (TIA), and cerebral infarction without residual deficits; E87.70 Fluid overload, unspecified; K21.9 Gastro-esophageal reflux disease without esophagitis; Z68.39 Body mass index [BMI] 39.0-39.9, adult
CPT/HCPCS: 36415; 36600; 51700; 71045; 80053; 82550; 82553; 82805; 83735; 83880; 84484; 85025; 87040; 90962; 93005; 94640; 94760; 99285; J0692; J1160; J1170; J1644; J1940; J2270; J2405; J3370; J3410; J7030; J7050; U0002